=== PATIENT | female | born 1970 | race Caucasian/White ===

== ENCOUNTER → 2021-05-01 22:05 | Outpatient (CLI) | payer OTHER, SELFPAY ==
[2021-05-01 22:11] LABS: Absolute Lymphocyte Count 2.61 X10^3/uL (0.83-4.51); Absolute Neutrophil Count 4.5 X10^3/uL (2.0-7.7); Basophil# 0.04 X10^3/uL; Basophil% 0.5 % (0-1); Eosinophil# 0.12 X10^3/uL; Eosinophils% 1.5 % (0-5); Hematocrit 41.5 % (37-47); Hemoglobin 14.6 g/dL (12.0-15.0); Lymphocyte # 2.61 X10^3/ul (0.83-4.51); Lymphocyte % 32.2 % (19-41); Mean Corp Hgb Conc 35.2 g/dL (32-36); Mean Corpuscular Hgb 31.9 pg (27.0-32.0); Mean Corpuscular Volume 90.6 fL (81-99); Mean Platelet Vol. 9.8 fl (6.2-12.0); Monocyte# 0.82 X10^3/uL; Monocyte% 10.1 % (0-10); NRBC Flagged by Analyzer 0 % (0-5); Neutrophil # 4.46 X10^3/uL (2.7-7.7); Neutrophil % 55.1 % (47-70); Platelet Count 265 K/mm3 (150-450); RBC Distribution Width CV 12.9 % (11.6-14.6); RBC Distribution Width SD 42.6 fl (35.1-43.9); Red Blood Count 4.58 M/mm3 (4.2-5.4); White Blood Count 8.1 K/mm3 (4.4-11.0)
[2021-05-01 22:24] LABS: ALB/GLOB Ratio 1.2 RATIO (0.9-2.4); AST(SGOT) 31 U/L (15-37); Alanine Aminotransfer ALT/SGPT 49 U/L (13-56); Albumin, Serum 4.1 g/dL (3.2-5.0); Alkaline Phosphatase 82 U/L (45-117); Anion Gap 7 (5-15); BUN 15 mg/dL (7-18); BUN/Creat Ratio 20.4 RATIO (10-20); Chloride 108 mmol/L (98-107); Cholesterol 214 mg/dL (200); Creatinine, Serum 0.74 mg/dL (0.55-1.02); EST Glomerular Filtration Rate 88 mL/min (>60); Est Glom Filt Rate - Afr Amer 106 mL/min (>60); Globulin 3.5 g/dL (2.2-4.2); Glucose 89 mg/dL (74-106); High Density Lipoprotein 53 mg/dL; Potassium 3.6 mmol/L (3.5-5.1); Protein, Total 7.6 g/dL (6.4-8.2); Sodium Level 139 mmol/L (136-145); Triglycerides 160 mg/dL; Very Low Density Lipoprotein 32 mg/dL (5-40)
== END ==
PROVIDERS: Visit Provider Nurse Practitioner
DX: Z00.00 Encounter for general adult medical examination without abnormal findings (principal)
CPT/HCPCS: 80053; 80061; 85025

== ENCOUNTER → 2022-04-23 | Outpatient (CLI) | payer OTHER, SELFPAY ==
[2022-04-23 22:34] LABS: Absolute Lymphocyte Count 4.16 X10^3/uL (0.83-4.51); Absolute Neutrophil Count 5.5 X10^3/uL (2.0-7.7); Basophil# 0.04 X10^3/uL; Basophil% 0.4 % (0-1); Eosinophil# 0.29 X10^3/uL; Eosinophils% 2.7 % (0-5); Hematocrit 39.7 % (37-47); Hemoglobin 13.8 g/dL (12.0-15.0); Lymphocyte # 4.16 X10^3/ul (0.83-4.51); Lymphocyte % 39.1 % (19-41); Mean Corp Hgb Conc 34.8 g/dL (32-36); Mean Corpuscular Hgb 31.7 pg (27.0-32.0); Mean Corpuscular Volume 91.3 fL (81-99); Mean Platelet Vol. 9.5 fl (6.2-12.0); Monocyte# 0.61 X10^3/uL; Monocyte% 5.7 % (0-10); NRBC Flagged by Analyzer 0 % (0-5); Neutrophil % 51.6 % (47-70); Platelet Count 287 K/mm3 (150-450); RBC Distribution Width SD 43.7 fl (35.1-43.9); Red Blood Count 4.35 M/mm3 (4.2-5.4); White Blood Count 10.7 K/mm3 (4.4-11.0)
[2022-04-23 22:55] LABS: ALB/GLOB Ratio 1.2 RATIO (0.9-2.4); AST(SGOT) 21 U/L (15-37); Alanine Aminotransfer ALT/SGPT 35 U/L (13-56); Albumin, Serum 4.1 g/dL (3.2-5.0); Alkaline Phosphatase 70 U/L (45-117); Anion Gap 8 (5-15); BUN 16 mg/dL (7-18); BUN/Creat Ratio 21.3 RATIO (10-20); Calcium,Total 9.1 mg/dL (8.5-10.1); Chloride 108 mmol/L (98-107); Cholesterol 231 mg/dL (200); Creatinine, Serum 0.75 mg/dL (0.55-1.02); EST Glomerular Filtration Rate 86 mL/min (>60); Est Glom Filt Rate - Afr Amer 103 mL/min (>60); Globulin 3.4 g/dL (2.2-4.2); Glucose 87 mg/dL (74-106); High Density Lipoprotein 43 mg/dL; Potassium 3.6 mmol/L (3.5-5.1); Protein, Total 7.5 g/dL (6.4-8.2); Sodium Level 140 mmol/L (136-145); Triglycerides 208 mg/dL; Very Low Density Lipoprotein 42 mg/dL (5-40)
== END | disposition home or self-care (01) ==
PROVIDERS: Visit Provider Nurse Practitioner
DX: Z00.00 Encounter for general adult medical examination without abnormal findings (principal)
CPT/HCPCS: 80053; 80061; 85025

== ENCOUNTER → 2023-05-05 | Outpatient (CLI) | payer OTHER, SELFPAY ==
[2023-05-05 21:17] LABS: Absolute Lymphocyte Count 3.56 X10^3/uL (0.83-4.51); Basophil# 0.08 X10^3/uL; Basophil% 0.8 % (0-1); Eosinophil# 0.32 X10^3/uL; Eosinophils% 3.3 % (0-5); Hematocrit 42.6 % (37-47); Hemoglobin 14.1 g/dL (12.0-15.0); Lymphocyte # 3.56 X10^3/ul (0.83-4.51); Lymphocyte % 36.3 % (19-41); Mean Corp Hgb Conc 33.1 g/dL (32-36); Mean Corpuscular Hgb 30.8 pg (27.0-32.0); Mean Platelet Vol. 9.3 fl (6.2-12.0); Monocyte# 0.76 X10^3/uL; Monocyte% 7.8 % (0-10); NRBC Flagged by Analyzer 0 % (0-5); Neutrophil # 5.02 X10^3/uL (2.7-7.7); Neutrophil % 51.2 % (47-70); Platelet Count 326 K/mm3 (150-450); RBC Distribution Width CV 13.2 % (11.6-14.6); RBC Distribution Width SD 44.6 fl (35.1-43.9); Red Blood Count 4.58 M/mm3 (4.2-5.4); White Blood Count 9.8 K/mm3 (4.4-11.0)
[2023-05-05 21:39] LABS: ALB/GLOB Ratio 1.2 RATIO (0.9-2.4); AST(SGOT) 21 U/L (15-37); Alanine Aminotransfer ALT/SGPT 40 U/L (13-56); Albumin, Serum 4.2 g/dL (3.2-5.0); Alkaline Phosphatase 105 U/L (45-117); Anion Gap 5 (5-15); BUN 15 mg/dL (7-18); BUN/Creat Ratio 18.6 RATIO (10-20); Calcium,Total 9.3 mg/dL (8.5-10.1); Chloride 107 mmol/L (98-107); Cholesterol 253 mg/dL (200); Creatinine, Serum 0.81 mg/dL (0.55-1.02); EST Glomerular Filtration Rate 79 mL/min (>60); Est Glom Filt Rate - Afr Amer 95 mL/min (>60); Globulin 3.6 g/dL (2.2-4.2); Glucose 94 mg/dL (74-106); High Density Lipoprotein 41 mg/dL; Potassium 4.1 mmol/L (3.5-5.1); Protein, Total 7.8 g/dL (6.4-8.2); Sodium Level 140 mmol/L (136-145); Triglycerides 221 mg/dL; Very Low Density Lipoprotein 44 mg/dL (5-40)
== END | disposition home or self-care (01) ==
PROVIDERS: Referring Provider Nurse Practitioner; Visit Provider Nurse Practitioner
DX: Z00.00 Encounter for general adult medical examination without abnormal findings (principal)
CPT/HCPCS: 80053; 80061; 85025

== ENCOUNTER → 2024-04-05 | Outpatient (CLI) | payer OTHER, SELFPAY ==
[2024-04-05 22:59] LABS: Absolute Lymphocyte Count 3.57 X10^3/uL (0.83-4.51); Absolute Neutrophil Count 7.3 X10^3/uL (2.0-7.7); Basophil# 0.05 X10^3/uL; Basophil% 0.4 % (0-1); Eosinophil# 0.09 X10^3/uL; Eosinophils% 0.8 % (0-5); Hematocrit 40.4 % (37-47); Hemoglobin 13.7 g/dL (12.0-15.0); Lymphocyte # 3.57 X10^3/ul (0.83-4.51); Lymphocyte % 31.5 % (19-41); Mean Corp Hgb Conc 33.9 g/dL (32-36); Mean Corpuscular Hgb 34.2 pg (27.0-32.0); Mean Corpuscular Volume 100.7 fL (81-99); Mean Platelet Vol. 9.2 fl (6.2-12.0); Monocyte% 2.6 % (0-10); NRBC Flagged by Analyzer 0 % (0-5); Neutrophil # 7.31 X10^3/uL (2.7-7.7); Neutrophil % 64.4 % (47-70); POSITIVE MORPHOLOGY YES; Platelet Count 361 K/mm3 (150-450); RBC Distribution Width CV 15.5 % (11.6-14.6); RBC Distribution Width SD 57.6 fl (35.1-43.9); Red Blood Count 4.01 M/mm3 (4.2-5.4); White Blood Count 11.4 K/mm3 (4.4-11.0)
[2024-04-05 23:21] LABS: Differential Indicated SCAN CRITERIA MET
[2024-04-05 23:22] LABS: ALB/GLOB Ratio 0.9 RATIO (0.9-2.4); AST(SGOT) 57 U/L (15-37); Alanine Aminotransfer ALT/SGPT 62 U/L (13-56); Albumin, Serum 3.7 g/dL (3.2-5.0); Alkaline Phosphatase 128 U/L (45-117); Anion Gap 6 (5-15); BUN 15 mg/dL (7-18); BUN/Creat Ratio 15.9 RATIO (10-20); Calcium,Total 9.9 mg/dL (8.5-10.1); Chloride 103 mmol/L (98-107); Cholesterol 166 mg/dL (200); Creatinine, Serum 0.94 mg/dL (0.55-1.02); EST Glomerular Filtration Rate 65 mL/min (>60); Est Glom Filt Rate - Afr Amer 79 mL/min (>60); Globulin 3.9 g/dL (2.2-4.2); Glucose 82 mg/dL (74-106); High Density Lipoprotein 46 mg/dL; Potassium 3.8 mmol/L (3.5-5.1); Protein, Total 7.6 g/dL (6.4-8.2); Sodium Level 138 mmol/L (136-145); Triglycerides 225 mg/dL; Very Low Density Lipoprotein 45 mg/dL (5-40)
[2024-04-06 04:24] LABS: Atypical Lymphocyte 1+ %
== END | disposition home or self-care (01) ==
PROVIDERS: Referring Provider Nurse Practitioner; Visit Provider Nurse Practitioner
DX: Z00.00 Encounter for general adult medical examination without abnormal findings (principal)
CPT/HCPCS: 80053; 80061; 85025

== ENCOUNTER → 2025-04-19 | Outpatient (CLI) | payer OTHER, SELFPAY ==
[2025-04-19 22:16] LABS: Hematocrit 40.1 % (37-47); Hemoglobin 13.8 g/dL (12.0-15.0); Immature Granulocytes Count 0.030 X10^3/uL (0.0-0.0); Mean Corp Hgb Conc 34.4 g/dL (32-36); Mean Corpuscular Volume 96.6 fL (81-99); Mean Platelet Vol. 9.2 fl (6.2-12.0); NRBC Flagged by Analyzer 0 % (0-5); Platelet Count 279 K/mm3 (150-450); RBC Distribution Width CV 12.6 % (11.6-14.6); RBC Distribution Width SD 45.1 fl (35.1-43.9); Red Blood Count 4.15 M/mm3 (4.2-5.4); White Blood Count 8.0 K/mm3 (4.4-11.0)
[2025-04-19 22:38] LABS: AST(SGOT) 27 U/L (<=31); Alanine Aminotransfer ALT/SGPT 26 U/L (<=34); Albumin, Serum 4.4 g/dL (3.5-5.0); Alkaline Phosphatase 103 U/L (35-104); Anion Gap 11 (5-15); BUN 16 mg/dL (4-19); BUN/Creat Ratio 17.1 RATIO (10-20); Calcium,Total 9.6 mg/dL (7.6-11.0); Carbon Dioxide 24.7 mmol/L (21.0-32.0); Chloride 105 mmol/L (98-108); Cholesterol 146 mg/dL (<=200); Globulin 2.6 g/dL (2.2-4.2); Glucose 87 mg/dL (70-99); Low Density Lipoprotein Calc. 64 mg/dL; Potassium 4.2 mmol/L (3.3-5.1); Triglycerides 115 mg/dL; Very Low Density Lipoprotein 23 mg/dL (5-40); cholesterol:hdl ratio screen 2.48
--- OUTSIDE RECORDS SUMMARY | 2025-04-19 22:44 | XMS RPT_ITS | CCD ---
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 Name Role Phone Yaron HOME CARE CHAPLAIN.Martine LYNCH Primary Care Provide r KRISTY BATEMAN Attending Unavailabl e VANE MARRUFOA Allyson Primary Care Unavailable REID REDDING Attending Unavailable REID REDDING Admitting Unavailable YARON MARTINE L Primary Care Unavailable KRISTY BATEMAN Referring Unavailmargie Hackett MD, Sina Gil Unavailable Jessie Scott RN Unavailable Deidre YEUNG, Joleen Unavailable Teresa ZUNIGA, Marta Unavailable Unavailable Shanique Velazquez Unavailable Yaron HOME CARE CHAPLAIN.Vane LYNCHa L Primary Care Provide r Kelli ZUNIGA, Anjelica Unavailable Unavailable Jessie Scott RN Unavailable Yaron SENIOR OFFICER, Martine Attending Unavailable Yaron SENIOR OFFICER, Martine Referring Unavailable Care Physician, No Primary Primary Care Unava ilable Yaron SENIOR OFFICER, Martine Referring Unavailable Care Physician, No Primary Primary Care Unava ilable Yaron SENIOR OFFICER, Martine Attending Unavailable MARK MCDONNELL Attending Unavailabl e MARRUFO, MARTINE L Primary Care Unavailable MARRUFO, MARTINE L Primary Care Unavailable MARK MCDONNELL Attending Unavailabl e MARRUFO, MARTINE L Primary Care Unavailable MARK MCDONNELL Attending Unavailabl e PROVIDER, UNKNOWN Referring Unavailable MARRUFO, MARTINE L Primary Care Unavailable PROVIDER, UNKNOWN Referring Unavailable MARRUFO, MARTINE L Primary Care Unavailable PROVIDER, UNKNOWN Referring Unavailable MARRUFO, MARTINE L Primary Care Unavailable PROVIDER, UNKNOWN Referring Unavailable MARRUFO, MARTINE L Primary Care Unavailable PROVIDER, UNKNOWN Referring Unavailable MARRUFO, MARTINE L Primary Care Unavailable PROVIDER, UNKNOWN Referring Unavailable MARRUFO, MARTINE L Primary Care Unavailable PROVIDER, UNKNOWN Referring Unavailable MARRUFO, MARTINE L Primary Care Unavailable PROVIDER, UNKNOWN Referring Unavailable MARRUFO, MARTINE L Primary Care Unavailable PROVIDER, UNKNOWN Referring Unavailable MARRUFO, MARTINE L Primary Care Unavailable PROVIDER, UNKNOWN Referring Unavailable MARRUFO, MARTINE L Primary Care Unavailable PROVIDER, UNKNOWN Referring Unavailable MARRUFO, MARTINE L Primary Care Unavailable TRI DICKERSON Attending Unavailable MARRUFO, MARTINE L Primary Care Unavailable JIANG, KHALED Referring Unavailable MARRUFO, MARTINE L Primary Care Unavailable JIANG, KHALED Referring Unavailable MARRUFO, MARTINE L Primary Care Unavailable MARRUFO, MARTINE L Primary Care Unavailable JIANG, KHALED Referring Unavailable MARIELA RIEVRA Referring Unavailable MARRUFO, MARTINE L Primary Care Unavailable MARIELA RIVERA Attending Unavailable MARRUFO, MARTINE L Primary Care Unavailable JIANG, KHALED Referring Unavailable MARIELA RIVERA Referring Unavailable MARIELA RIVERA Attending Unavailable MARRUFO, MARTINE L Primary Care Unavailable MARRUFO, MARTINE L Primary Care Unavailable JIANG, KHALED Attending Unavailable MARRUFO, MARTINE L Primary Care Unavailable JIANG, KHALED Referring Unavailable MARRUFO, MARTINE L Primary Care Unavailable JIANG, KHALED Attending Unavailable JIANG, KHALED Referring Unavailable MARRUFO, MARTINE L Primary Care Unavailable JIANG, KHALED Referring Unavailable MARRUFO, MARTINE L Primary Care Unavailable JIANG, KHALED Referring Unavailable MARRUFO, MARTINE L Primary Care Unavailable JIANG, KHALED Referring Unavailable MARIELA RIVERA Attending Unavailable MARIELA RIVERA Referring Unavailable MARRUFO, MARTINE L Primary Care Unavailable LOVE JUAREZ Attending Unavailable MARRUFO, MARTINE L Primary Care Unavailable MARRUFO, MARTINE L Primary Care Unavailable JIANG, KHALED Referring Unavailable MARRUFO, MARTINE L Primary Care Unavailable TRI DICKERSON Attending Unavailable MARRUFO, MARTINE L Primary Care Unavailable JIANG, KHALED Referring Unavailable MARRUFO, MARTINE L Primary Care Unavailable JIANG, KHALED Referring Unavailable MARRUFO, MARTINE L Primary Care Unavailable JIANG, KHALED Referring Unavailable MARRUFO, MARTINE L Primary Care Unavailable JIANG, KHALED Attending Unavailable JIANG, KHALED Referring Unavailable LOVE JUAREZ Attending Unavailable MARRUFO, MARTINE L Primary Care Unavailable MARRUFO, MARTINE L Primary Care Unavailable JIANG, KHALED Referring Unavailable MAYITO DICKERSONNDRIA Attending Unavailable MARRUFO, MARTINE L Primary Care Unavailable JIANG, KHALED Referring Unavailable MARRUFO, MARTINE L Primary Care Unavailable TUAN, TRI Attending Unavailable MARRUFO, MARTINE L Primary Care Unavailable MARRUFO, MARTINE L Primary Care Unavailable JIANG, KHALED Referring Unavailable MARIELA RIVERA Attending Unavailable MARIELA RIVERA Referring Unavailable MARRUFO, MARTINE L Primary Care Unavailable MARRUFO, MARTINE L Primary Care Unavailable JIANG, KHALED Referring Unavailable TUAN, TRI Attending Unavailable MARRUFO, MARTINE L Primary Care Unavailable JIANG, KHALED Referring Unavailable MARRUFO, MARTINE L Primary Care Unavailable JIANG, KHALED Referring Unavailable MARRUFO, MARTINE L Primary Care Unavailable JIANG, KHALED Referring Unavailable JIANG, KHALED Attending Unavailable MARRUFO, MARTINE L Primary Care Unavailable JIANG, KHALED Referring Unavailable MARRUFO, MARTINE L Primary Care Unavailable JIANG, KHALED Attending Unavailable MARRUFO, MARTINE L Primary Care Unavailable JIANG, KHALED Referring Unavailable MARRUFO, MARTINE L Primary Care Unavailable JIANG, KHALED Referring Unavailable MARRUFO, MARTINE L Primary Care Unavailable JIANG, KHALED Attending Unavailable JIANG, KHALED Referring Unavailable MARRUFO, MARTINE L Primary Care Unavailable JIANG, KHALED Referring Unavailable MARRUFO, MARTINE L Primary Care Unavailable JIANG, KHALED Referring Unavailable MARRUFO, MARTINE L Primary Care Unavailable JIANG, KHALED Referring Unavailable TUAN, TRI Attending Unavailable MARRUFO, MARTINE L Primary Care Unavailable JIANG, KHALED Referring Unavailable MARRUFO, MARTINE L Primary Care Unavailable JIANG, KHALED Referring Unavailable MARRUFO, MARTINE L Primary Care Unavailable JIANG, KHALED Referring Unavailable MARRUFO, MARTINE L Primary Care Unavailable JIANG, KHALED Attending Unavailable JIANG, KHALED Referring Unavailable Allergies Allergy Classification Reported Allergen(s) Allergy Type Date of Onset Reaction(s) Facility egg extract (1 source) egg extract Drug Allergy 3 [facility] Latex (1 source) Latex Substance Allergy 3 [facility] Penicillins (antibiotic) (1 source) Penicillins Drug Allergy 5 [facility] (16 sources) Penicillins; Translations: [PENICILLINS] Allergy to substance 5 [facility] (20 sources) Penicillins Propensity to adverse reactions to drug 5 Unknown, [facility] (20 sources) egg extract; Translations: [EGG] Drug Allergy 3 [facility] (20 sources) Latex; Translations: [LATEX] Drug Allergy 3 [facility] (1 source) Penicillins Drug allergy (disorder) 3 [facility] (17 sources) Penicillins Drug Allergy 5 [facility] Medications Current Medications Medication Drug Class(es) Dates Sig (Normalized) Sig (Original) acetaminophen 325 mg oral tablet (20 sources) Start: 07-23-2023 take 2 tablets enteral route every four hours as needed acetaminophen (TYLENOL) 325 mg tablet 2 tablets by ORAL/FEEDING TUBE route every 4 hours as needed for pain. 07/23/2023 Active Comment on above: 2 tablets by ORAL/FE EDING TUBE route every 4 hours as needed for pain. acetaminophen 325 mg / HYDROcodone bitartrate 5 mg oral tablet (20 sources) Opioid Agonist Start: 01-06-2024 End: 01-09-2024 take 1 tablet by mouth every eight hours as needed for pain HYDROcodone-acetami nophen (NORCO) 5-325 mg per tablet Indications: Malignant neoplasm of upper-outer quadrant of right breast in female, estrogen receptor positive (HCC) Take 1 tablet by mouth every 8 hours as needed for pain for up to 3 days. 5 tablet 0 01/06/2024 01/09/2024 Active Start: 01-02-2015 take 1 tablet by lul th every six hours as needed HYDROcodone-acetaminophen (NORCO) 5-325 mg per tablet Take 1 tablet by mouth every 6 hours as needed. 12 tablet 0 01/18/2016 Active Comment on above: Take 1 tablet by lul th every 6 hours as needed. [id number] 200 actuat albuterol 0.09 mg/actuat metered dose inhaler (20 sources) beta2-Adrenergic Agonist Start: 12-24-2024 take 2 puff(s) by inhalation every six hours as needed for wheezing albuterol HFA (PROVENTIL HFA, VENTOLIN HFA) 90 mcg/actuation inhaler Inhale 2 puffs as instructed every 6 hours as needed for wheezing/shortness of breath. 8.5 g 1 12/24/2024 11:32 AM EDT 12/24/2024 Active Start: 10-18-2024 take 1 puff(s) by in halation every six hours as needed for wheezing albuterol sulfate 90 mcg/actuation breath activated powder inhaler Inhale 1 Puff as instructed every 6 hours as needed for wheezing/shortness of breath. 1 Each 2 10/18/2024 Active atorvastatin 40 mg oral tablet (20 sources) HMG-CoA Reductase Inhibitor Start: 05-08-2023 take 40 mg by mouth once daily Atorvastatin Active 40 MG PO DAILY May 08, 2023 12:00am Comment on above: Take 40 mg by mouth once daily. 12 hr buPROPion hydrochloride 150 mg extended release oral tablet (20 sources) Aminoketone Start: 12-06-2024 End: 03-09-2025 take 1 tablet by mouth twice daily buPROPion SR (WELLBUTRIN SR) 150 mg 12 hr tablet Take 1 tablet by mouth two times a day. 60 tablet 2 03/09/2025 Active Start: 02-20-2024 End: 12-04-2024 take 1 tablet by mouth twice daily buPROPion SR (WELLBUTRIN SR) 150 mg 12 hr tablet Take 1 tablet by mouth two times a day. 60 tablet 2 09/15/2024 12/04/2024 Discontinued clarithromycin 500 mg oral tablet (1 source) Macrolide Antimicrobial Start: 05-05-2023 take 500 mg by mouth twice daily Clarithromycin Active 500 MG PO TWICE A DAY May 05, 2023 12:00am doxycycline hyclate 100 mg oral capsule (3 sources) Tetracycline-class Drug Start: 05-14-2024 End: 05-21-2024 take 1 capsule by mouth twice daily doxycycline hyclate (VIBRAMYCIN) 100 mg capsule Take 1 capsule (100 mg) by mouth two times a day for 7 days. 14 capsule 05/14/2024 05/21/2024 Active DULoxetine 60 mg delayed release oral capsule (20 sources) Serotonin and Norepinephrine Reuptake Inhibitor Start: 06-19-2022 End: 05-05-2023 take 60 mg by mouth once daily Duloxetine Active 60 MG PO DAILY May 05, 2023 4:42pm Start: 04-23-2022 End: 06-19-2022 take 30 mg by mouth once daily Duloxetine Discontinued 30 MG PO daily April 23, 2022 12:00am June 19, 2022 4:15pm Comment on above: Take 60 mg by mouth once daily. famotidine 20 mg oral tablet (20 sources) Histamine-2 Receptor Antagonist Start: 07-29-2023 End: 03-09-2024 take 1 tablet by mouth twice daily famotidine (PEPCID) 20 mg tablet Take 1 tablet by mouth two times a day. 40 tablet 03/10/2024 Active Comment on above: Take 1 tablet by lul th two times a day. folic acid 1 mg oral tablet (20 sources) Start: 09-15-2023 End: 11-01-2024 take 1 tablet by mouth once daily folic acid 1 mg tablet Indications: Neoplasm of lung Take 1 tablet by mouth once daily. 30 tablet 5 11/01/2024 Active Start: 08-04-2023 take 1 tablet by lul th once daily folic acid 1 mg tablet Indications: Neoplasm of lung Take 1 tablet by mouth once daily. 30 tablet 5 08/04/2023 Active Comment on above: Take 1 tablet by lul th once daily. furosemide 20 mg oral tablet (20 sources) Loop Diuretic Start: End: take 1 tablet by mouth once daily furosemide (LASIX) 20 mg tablet Take 1 tablet by mouth once daily. 30 tablet 1 11/01/2024 Active ibuprofen 200 mg oral tablet (20 sources) Nonsteroidal Anti-inflammatory Drug take 1 tablet by mouth every six hours as needed ibuprofen (MOTRIN) 200 mg tablet Take 200 mg by mouth every 6 hours as needed for pain. Active iv contrast (will be provided with radiology test) (14 sources) Start: End: inject 1 dose intravenously once iv contrast (will be provided with radiology test) MRI Brain Inject, intravenously, once for 1 dose.No IV access, insert saline lock prior to beginning of sedation, infusion, injection of imaging exam.Discontinue saline lock post exam. If Pt. has a central line or IVAD, may access for administration according to line specific nursing protocol.Once exam is complete flush line and de-access according to line specific nursing protocol in the MR contrast administration guidelines link 1 each 02/03/2025 02/04/2025 Active Start: 10-28-2024 End: 10-29-2024 inject 1 dose intravenously once iv contrast (will be provided with radiology test) MRI Brain Inject, intravenously, once for 1 dose.No IV access, insert saline lock prior to beginning of sedation, infusion, injection of imaging exam.Discontinue saline lock post exam. If Pt. has a central line or IVAD, may access for administration according to line specific nursing protocol.Once exam is complete flush line and de-access according to line specific nursing protocol in the MR contrast administration guidelines link 1 Each 10/28/2024 10/29/2024 Active Start: 07-29-2024 End: 07-30-2024 inject 1 dose intravenously once iv contrast (will be provided with radiology test) MRI Brain Inject, intravenously, once for 1 dose.No IV access, insert saline lock prior to beginning of sedation, infusion, injection of imaging exam.Discontinue saline lock post exam. If Pt. has a central line or IVAD, may access for administration according to line specific nursing protocol.Once exam is complete flush line and de-access according to line specific nursing protocol in the MR contrast administration guidelines link 1 Each 07/29/2024 07/30/2024 Active Start: 04-22-2024 End: 04-23-2024 inject 1 dose intravenously once iv contrast (will be provided with radiology test) MRI Brain Inject, intravenously, once for 1 dose.No IV access, insert saline lock prior to beginning of sedation, infusion, injection of imaging exam.Discontinue saline lock post exam. If Pt. has a central line or IVAD, may access for administration according to line specific nursing protocol.Once exam is complete flush line and de-access according to line specific nursing protocol in the MR contrast administration guidelines link 1 Each 04/22/2024 04/23/2024 Active Start: 01-08-2024 End: 01-09-2024 inject 1 dose intravenously once iv contrast (will be provided with radiology test) MRI Brain Inject, intravenously, once for 1 dose.No IV access, insert saline lock prior to beginning of sedation, infusion, injection of imaging exam.Discontinue saline lock post exam. If Pt. has a central line or IVAD, may access for administration according to line specific nursing protocol.Once exam is complete flush line and de-access according to line specific nursing protocol in the MR contrast administration guidelines link 1 Each 0 01/08/2024 01/09/2024 Active Start: 10-15-2023 End: 10-16-2023 iv contrast (will be provide d with radiology test) CT Chest W -Inject, intravenously, once for 1 dose.No IV access, insert saline lock prior to the beginning of sedation, infusion, injection of imaging exam. Discontinue saline lock post exam. If Pt. has a central line or IVAD, may access for administration according to line specific nursing protocol. Once exam is complete flush line and de-access according to line specific nursing protocol in the CT contrast administration guidelines link. 1 Each 0 10/15/2023 10/16/2023 Active Start: 09-26-2023 End: 09-27-2023 inject 1 dose intravenously once iv contrast (will be provided with radiology test) MRI Brain Inject, intravenously, once for 1 dose.No IV access, insert saline lock prior to beginning of sedation, infusion, injection of imaging exam.Discontinue saline lock post exam. If Pt. has a central line or IVAD, may access for administration according to line specific nursing protocol.Once exam is complete flush line and de-access according to line specific nursing protocol in the MR contrast administration guidelines link 1 Each 0 09/26/2023 09/27/2023 Active Comment on above: MRI Brain Inject, in travenously, once for 1 dose.No IV access, insert saline lock prior to beginning of sedation, infusion, injection of imaging exam.Discontinue saline lock post exam. If Pt. has a central line or IVAD, may access for administration according to line specific nursing protocol.Once exam is complete flush line and de-access according to line specific nursing protocol in the MR contrast administration guidelines link CT Chest W -Inject, intravenously, once for 1 dose.No IV access, insert saline lock prior to the beginning of sedation, infusion, injection of imaging exam. Discontinue saline lock post exam. If Pt. has a central line or IVAD, may access for administration according to line specific nursing protocol. Once exam is complete flush line and de-access according to line specific nursing protocol in the CT contrast administration guidelines link. lacosamide 150 mg oral tablet (20 sources) Anti-epileptic Agent Start: End: take 1 tablet by mouth twice daily lacosamide (VIMPAT) 150 mg tab Indications: Focal epilepsy (HCC) Take 1 tablet by mouth two times a day for 180 days. 180 tablet 1 11/24/2024 05/23/2025 Active Start: 12-05-2023 End: 03-05-2024 take 1 tablet by mouth twice daily, then take 1.5 tablets by mouth twice daily lacosamide (VIMPAT) 100 mg tab Indications: Focal epilepsy (HCC) Take 1 tablet by mouth two times a day for 7 days, THEN 1.5 tablets two times a day for 21 days. 80 tablet 12/05/2023 03/05/2024 Discontinued (Other) Comment on above: Take 1 tablet by lul th two times a day for 7 days, THEN 1.5 tablets two times a day for 21 days. Take 1 tablet by lul th two times a day for 180 days. Do not start before January 02, 2024. levETIRAcetam 750 mg oral tablet (20 sources) Start: End: take 2 tablets by mouth twice daily levETIRAcetam (KEPPRA) 750 mg tablet Indications: Focal epilepsy (HCC) 2 tablets by ORAL/FEEDING TUBE route two times a day. 360 tablet 1 09/03/2023 03/01/2024 Active Comment on above: 2 tablets by ORAL/FE EDING TUBE route two times a day. levoFLOXacin 500 mg oral tablet (2 sources) Quinolone Antimicrobial Start: End: take 1 tablet by mouth once daily levoFLOXacin (LEVAQUIN) 500 mg tablet Take 1 tablet by mouth once daily for 7 days. 7 tablet 0 02/09/2024 02/16/2024 Active lidocaine 0.04 mg/mg medicated patch (20 sources) Antiarrhythmic, Amide Local Anesthetic Start: End: apply 1 dose transdermal route once daily lidocaine (SALONPAS) 4 % patch Apply 1 Patch as directed once daily. 10 Patch 10/18/2024 Active Start: 12-29-2023 End: 12-29-2023 SUBCUTANEOUS, X (OR/PROCEDUR E) PRN, Starting on Fri12/29/23 at 0941, Until Fri12/29/23 at 0941, Intraprocedure loperamide hydrochloride 2 mg oral capsule (20 sources) Opioid Agonist Start: 09-17-2023 take 1 capsule by mouth every six hours as needed loperamide (IMODIUM A-D) 2 mg cap(s) Take 1 capsule by mouth four times a day as needed. 30 capsule 09/17/2023 Active Comment on above: Take 1 capsule by mo uth four times a day as needed. methocarbamol 500 mg oral tablet (7 sources) Muscle Relaxant Start: 02-04-2025 take 1 tablet by mouth every eight hours as needed methocarbamol (ROBAXIN) 500 mg tablet Take 1 tablet by mouth three times a day as needed (Muscular pain and spasm). 15 tablet 02/04/2025 Active OLANZapine 5 mg oral tablet (20 sources) Atypical Antipsychotic Start: 12-08-2023 End: 09-21-2024 take 1 tablet by mouth once daily at bedtime OLANZapine (ZYPREXA) 5 mg tablet Indications: Neoplasm of lung TAKE 1 TABLET BY MOUTH ONCE DAILY AT BEDTIME. start on the day OF chemotherapy and TAKE for 5 (FIVE) nights 30 tablet 1 09/21/2024 Active Start: 09-15-2023 End: 12-05-2023 take 1 tablet by mouth once daily at bedtime OLANZapine (ZYPREXA) 5 mg tablet Indications: Neoplasm of lung Take 1 tablet by mouth daily at bedtime. Start on the day of chemotherapy and take for 5 night. 30 tablet 1 11/28/2023 Active Start: 08-04-2023 take 1 tablet by lul th once daily at bedtime OLANZapine (ZYPREXA) 5 mg tablet Indications: Neoplasm of lung Take 1 tablet by mouth daily at bedtime. Start on the day of chemotherapy and take for 5 night. 30 tablet 1 08/04/2023 Active Comment on above: Take 1 tablet by lul th daily at bedtime. Start on the day of chemotherapy and take for 5 night. oxyCODONE hydrochloride 5 mg oral tablet (2 sources) Opioid Agonist Start: 02-05-20 End: 02-10-20 take 1 tablet by mouth every eight hours as needed for pain oxyCODONE IR (ROXICODONE) 5 mg immediate release tablet Indications: Adenocarcinoma of lung, stage 4, unspecified laterality (HCC) , Rib pain on left side Take 1 tablet by mouth every 8 hours as needed for pain for up to 5 days. 15 tablet 02/04/2025 02/09/2025 Active pantoprazole 40 mg delayed release oral tablet (20 sources) Proton Pump Inhibitor Start: 08-13-20 End: 08-13-20 take 1 tablet by mouth once daily in the morning pantoprazole DR (PROTONIX) 40 mg tablet Take 1 tablet by mouth daily at 6 am. 30 tablet 08/13/2023 Active Start: 07-24-2023 End: 08-10-2023 take 1 tablet by mouth once daily in the morning pantoprazole DR (PROTONIX) 40 mg tablet Take 1 tablet by mouth daily at 6 am. 30 tablet 0 07/24/2023 08/10/2023 Discontinued Comment on above: Take 1 tablet by lul daily at 6 am. prochlorperazine 10 mg oral tablet (20 sources) Phenothiazine Start: 025 take 1 tablet by mouth every four hours as needed prochlorperazine (COMPAZINE) 10 mg tablet Take 1 tablet by mouth every 4 hours as needed. 30 tablet 1 12/06/2024 Active Start: 09-17-2023 End: 12-04-2024 take 1 tablet by mouth every four hours as needed prochlorperazine (COMPAZINE) 10 mg tablet Take 1 tablet by mouth every 4 hours as needed. 30 tablet 1 05/03/2024 12/04/2024 Discontinued Comment on above: Take 1 tablet by lul th every 4 hours as needed. varenicline 1 mg oral tablet (20 sources) Partial Cholinergic Nicotinic Agonist Start: take 1 tablet by mouth twice daily at mealtime varenicline (CHANTIX) 1 mg tablet Take 1 tablet by mouth two times a day with meals. 60 tablet 1 02/20/2024 Active vitamin b6 100 mg oral tablet (20 sources) Start: End: 5 take 1 tablet by mouth once daily pyridoxine, vitamin B6, (VITAMIN B6) 100 mg tablet Indications: Focal epilepsy (HCC) Take 1 tablet by mouth once daily. 90 tablet 3 09/21/2024 Active Comment on above: Take 1 tablet by lul th once daily. Completed/Discontinued Medications Medication Drug Class(es) Dates Sig (Normalized) Sig (Original) cyclobenzaprine hydrochloride 10 mg oral tablet (13 sources) Muscle Relaxant Start: 01-18-2016 take 1 tablet by mouth every eight hours as needed cyclobenzaprine (FLEXERIL) 10 mg tablet Take 1 tablet by mouth every 8 hours as needed for Muscle Spasm (or pain). 14 tablet 0 01/18/2016 Active Comment on above: Take 1 tablet by lul th every 8 hours as needed for Muscle Spasm (or pain). dexamethasone 4 mg oral tablet (20 sources) Corticosteroid Start: 07-29-2023 dexAMETHasone (DECADRON) 4 mg tablet Start the day after your Gamma Knife procedure:Decadron (Dexamethasone), Take 4 mg (1 tablet) three times a day for 4 days, Then Take 4 mg (1 tablet) twice a day for 4 days then, Take 4 mg (1 tablet) once a day for 4 days then, Take 2 mg (1/2 tablet) once a day for 4 days then Take 2 mg (1/2 tablet) every OTHER day for 4 doses then, Stop the Decadron 28 tablet 0 07/29/2023 Active Start: 07-23-2023 dexAMETHasone (DECADRON) 4 mg tablet Take 4mg in the morning and 4mg in the afternoon until directed otherwise. Take Protonix daily while taking Decadron 20 tablet 0 07/23/2023 Active Comment on above: Take 4mg in the morn ing and 4mg in the afternoon until directed otherwise. Take Protonix daily while taking Decadron Start the day after your Gamma Knife procedure:Decadron (Dexamethasone), Take 4 mg (1 tablet) three times a day for 4 days, Then Take 4 mg (1 tablet) twice a day for 4 days then, Take 4 mg (1 tablet) once a day for 4 days then, Take 2 mg (1/2 tablet) once a day for 4 days then Take 2 mg (1/2 tablet) every OTHER day for 4 doses then, Stop the Decadron fluconazole 100 mg oral tablet (1 source) Azole Antifungal Start: 2 End: 3 take 100 mg by mouth once daily Fluconazole Discontinued 100 MG PO DAILY June 19, 2022 12:00am May 05, 2023 4:43pm midazolam 50 mg/ml nasal spray (20 sources) Benzodiazepine Start: 4 End: 4 midazolam (NAYZILAM) 5 mg/spray (0.1 mL) nasal spray Indications: Focal epilepsy (HCC) Use 1 Morrow in the nose as needed for seizures lasting longer than 5 minutes for up to 180 days. May repeat dose in alternate nostril after 10 minutes based on response and tolerability. 4 Each 09/03/2023 02/26/2024 Discontinued Comment on above: Use 1 Morrow in the n ose as needed for seizures lasting longer than 5 minutes for up to 180 days. May repeat dose in alternate nostril after 10 minutes based on response and tolerability. 2 ml ondansetron 2 mg/ml injection (20 sources) Serotonin-3 Receptor Antagonist Start: 5 End: 8 mg, INTRAVENOUS, ONCE, 1 dose, On Fri10/18/24 at 1430 Start: 09-27-2024 End: 09-27-2024 8 mg, INTRAVENOUS, ONCE, 1 d ose, On Fri09/27/24 at 1400 Start: 09-03-2024 End: 09-03-2024 8 mg, INTRAVENOUS, ONCE, 1 d ose, On Fri09/03/24 at 1430 Start: 07-19-2024 End: 07-19-2024 8 mg, INTRAVENOUS, ONCE, 1 d ose, On Fri07/19/24 at 0930 Start: 06-30-2024 End: 06-30-2024 8 mg, INTRAVENOUS, ONCE, 1 d ose, On Fri06/30/24 at 1600 Start: 06-07-2024 End: 06-07-2024 8 mg, INTRAVENOUS, ONCE, 1 d ose, On Fri06/07/24 at 1230 Start: 05-14-2024 End: 05-14-2024 8 mg, INTRAVENOUS, ONCE, 1 d ose, On Fri05/14/24 at 1430 Start: 04-23-2024 End: 04-23-2024 8 mg, INTRAVENOUS, ONCE, 1 d ose, On Fri04/23/24 at 1200 Start: 04-02-2024 End: 04-02-2024 ondansetron (PF) 8 mg inject ion (ZOFRAN) Start: 03-12-2024 End: 03-12-2024 ondansetron (PF) 8 mg inject ion (ZOFRAN) Start: 02-20-2024 End: 02-20-2024 ondansetron (PF) 8 mg inject ion (ZOFRAN) Start: 01-29-2024 End: 01-29-2024 ondansetron (PF) 8 mg inject ion (ZOFRAN) Start: 09-15-2023 End: 05-03-2024 take 1 tablet by mouth every eight hours as needed for nausea ondansetron (ZOFRAN) 8 mg tablet Indications: Neoplasm of lung Take 1 tablet by mouth every 8 hours as needed for nausea/vomiting. 30 tablet 3 05/03/2024 Active Start: 08-04-2023 take 1 tablet by lul th every eight hours as needed for nausea ondansetron (ZOFRAN) 8 mg tablet Indications: Neoplasm of lung Take 1 tablet by mouth every 8 hours as needed for nausea/vomiting. 30 tablet 3 08/04/2023 Active Comment on above: Take 1 tablet by lul th every 8 hours as needed for nausea/vomiting. PARoxetine hydrochloride 10 mg oral tablet (2 sources) Serotonin Reuptake Inhibitor Start: 05-01-20 End: 04-23-20 take 10 mg by mouth once daily Paroxetine Hcl Discontinued 10 MG PO DAILY May 01, 2021 12:00am April 23, 2022 4:35pm pembrolizumab 200 mg in NaCl 0.9% 66 mL (KEYTRUDA) (12 sources) Start: 10-18-19 End: 10-18-19 200 mg, INTRAVENOUS, Administer over 30 Minutes, ONCE, 1 dose, On Fri10/18/24 at 1430, Approx Total Volume: 66 mL Administer with 0.2 micron filter. Start: 09-27-2024 End: 09-27-2024 200 mg, INTRAVENOUS, Adminis ter over 30 Minutes, ONCE, 1 dose, On Fri09/27/24 at 1400, EXP: Administer with 0.2 micron filter. Start: 09-03-2024 End: 09-03-2024 200 mg, INTRAVENOUS, Adminis ter over 30 Minutes, ONCE, 1 dose, On Fri09/03/24 at 1430, EXP: Administer with 0.2 micron filter. Start: 07-19-2024 End: 07-19-2024 200 mg, INTRAVENOUS, Adminis ter over 30 Minutes, ONCE, 1 dose, On Fri07/19/24 at 0930, Approx Total Volume: 66 mL Administer with 0.2 micron filter. Start: 06-30-2024 End: 06-30-2024 200 mg, INTRAVENOUS, Adminis ter over 30 Minutes, ONCE, 1 dose, On Fri06/30/24 at 1600, Approx Total Volume: 66 mL Administer with 0.2 micron filter. Start: 06-07-2024 End: 06-07-2024 200 mg, INTRAVENOUS, Adminis ter over 30 Minutes, ONCE, 1 dose, On Fri06/07/24 at 1230, Approx Total Volume: 66 mL Administer with 0.2 micron filter. Start: 05-14-2024 End: 05-14-2024 200 mg, INTRAVENOUS, Adminis ter over 30 Minutes, ONCE, 1 dose, On Fri05/14/24 at 1430, EXP: Administer with 0.2 micron filter. Start: 04-23-2024 End: 04-23-2024 200 mg, INTRAVENOUS, Adminis ter over 30 Minutes, ONCE, 1 dose, On Fri04/23/24 at 1200, Approx Total Volume: 66 mL Administer with 0.2 micron filter. Start: 04-02-2024 End: 04-02-2024 pembrolizumab 200 mg in NaCl 0.9% 66 mL (KEYTRUDA) Start: 03-12-2024 End: 03-12-2024 pembrolizumab 200 mg in NaCl 0.9% 66 mL (KEYTRUDA) Start: 02-20-2024 End: 02-20-2024 pembrolizumab 200 mg in NaCl 0.9% 66 mL (KEYTRUDA) Start: 01-29-2024 End: 01-29-2024 pembrolizumab 200 mg in NaCl 0.9% 66 mL (KEYTRUDA) pembrolizumab 400 mg in NaCl 0.9% 74 mL (KEYTRUDA) (4 sources) Start: 03-16-2025 End: 03-16-2025 400 mg, INTRAVENOUS, Adminis ter over 30 Minutes, ONCE, 1 dose, On Fri03/16/25 at 1300, Administer with 0.2 micron filter. Start: 02-04-2025 End: 02-04-2025 400 mg, INTRAVENOUS, Adminis ter over 30 Minutes, ONCE, 1 dose, On Fri02/04/25 at 1600, Administer with 0.2 micron filter. Start: 12-24-2024 End: 12-24-2024 400 mg, INTRAVENOUS, Adminis ter over 30 Minutes, ONCE, 1 dose, On Fri12/24/24 at 1030, Administer with 0.2 micron filter. Start: 11-08-2024 End: 11-08-2024 400 mg, INTRAVENOUS, Adminis ter over 30 Minutes, ONCE, 1 dose, On Fri11/08/24 at 1230, Administer with 0.2 micron filter. PEMEtrexed disodium 752 mg in NaCl 0.9% 140.08 mL (ALIMTA) (7 sources) Start: 10-18-2024 End: 10-18-2024 752 mg (400 mg/m2 1.88 m2 Tr eatment Plan BSA from Recorded weight), INTRAVENOUS, Administer over 10 Minutes, ONCE, 1 dose, On Fri10/18/24 at 1430, EXP: Hazardous Chemotherapy Drug: Use appropriate PPE. Start: 09-27-2024 End: 09-27-2024 752 mg (400 mg/m2 1.88 m2 Tr eatment Plan BSA from Recorded weight), INTRAVENOUS, Administer over 10 Minutes, ONCE, 1 dose, On Fri09/27/24 at 1400, EXP: Hazardous Chemotherapy Drug: Use appropriate PPE. Start: 09-03-2024 End: 09-03-2024 752 mg (400 mg/m2 1.88 m2 Tr eatment Plan BSA from Recorded weight), INTRAVENOUS, Administer over 10 Minutes, ONCE, 1 dose, On Fri09/03/24 at 1430, EXP: Hazardous Chemotherapy Drug: Use appropriate PPE. Start: 07-19-2024 End: 07-19-2024 752 mg (400 mg/m2 1.88 m2 Tr eatment Plan BSA from Recorded weight), INTRAVENOUS, Administer over 10 Minutes, ONCE, 1 dose, On Fri07/19/24 at 0930, EXP: Hazardous Chemotherapy Drug: Use appropriate PPE. Start: 06-30-2024 End: 06-30-2024 752 mg (400 mg/m2 1.88 m2 Tr eatment Plan BSA from Recorded weight), INTRAVENOUS, Administer over 10 Minutes, ONCE, 1 dose, On Fri06/30/24 at 1600, EXP: Hazardous Chemotherapy Drug: Use appropriate PPE. Start: 06-07-2024 End: 06-07-2024 752 mg (400 mg/m2 1.88 m2 Tr eatment Plan BSA from Recorded weight), INTRAVENOUS, Administer over 10 Minutes, ONCE, 1 dose, On Fri06/07/24 at 1230, EXP: Hazardous Chemotherapy Drug: Use appropriate PPE. Start: 05-14-2024 End: 05-14-2024 752 mg (400 mg/m2 1.88 m2 Tr eatment Plan BSA from Recorded weight), INTRAVENOUS, Administer over 10 Minutes, ONCE, 1 dose, On Fri05/14/24 at 1430, EXP: Hazardous Chemotherapy Drug: Use appropriate PPE. PEMEtrexed disodium 900 mg in NaCl 0.9% 146 mL (ALIMTA) (5 sources) Start: 04-23-2024 End: 04-23-2024 900 mg (rounded from 940 mg = 500 mg/m2 1.88 m2 Treatment Plan BSA from Recorded weight), INTRAVENOUS, Administer over 10 Minutes, ONCE, 1 dose, On Fri04/23/24 at 1200, EXP: Hazardous Chemotherapy Drug: Use appropriate PPE. Start: 04-02-2024 End: 04-02-2024 PEMEtrexed disodium 900 mg i n NaCl 0.9% 146 mL (ALIMTA) Start: 03-12-2024 End: 03-12-2024 PEMEtrexed disodium 900 mg i n NaCl 0.9% 146 mL (ALIMTA) Start: 02-20-2024 End: 02-20-2024 PEMEtrexed disodium 900 mg i n NaCl 0.9% 146 mL (ALIMTA) Start: 01-29-2024 End: 01-29-2024 PEMEtrexed disodium 900 mg i n NaCl 0.9% 146 mL (ALIMTA) microencapsulated potassium chloride 20 meq extended release oral tablet (1 source) Start: 02-20-2024 End: 02-20-2024 potassium chloride ER 40 mEq tab(s) (KLOR-CON) 1000 ml sodium chloride 9 mg/ml injection (1 source) Start: 02-04-2025 End: 02-04-2025 500 mL, INTRAVENOUS, at 999 mL/hr, Administer over 0.5 Hours, ONCE, 1 dose, On Fri02/04/25 at 1600 vitamin b12 1 mg/ml injectable solution (4 sources) Vitamin B12 Start: 09-03-2024 End: 09-03-2024 inject 1 dose by intramuscular injection once 1,000 mcg, INTRAMUSCULAR, ONCE, 1 dose, On Fri09/03/24 at 1430 Start: 06-07-2024 End: 06-07-2024 inject 1 dose by intramuscular injection once 1,000 mcg, INTRAMUSCULAR, ONCE, 1 dose, On Fri06/07/24 at 1300 Start: 04-02-2024 End: 04-02-2024 cyanocobalamin 1,000 mcg inj ection Start: 01-29-2024 End: 01-29-2024 cyanocobalamin 1,000 mcg inj ection Problems Active Problems Problem Classification Problem Date Documented Da te Episodic/Chronic Anxiety disorders (2 sources) Anxiety; Translations: [Anxiety disorder, unspecified] 06-19-2022 Chronic Cancer of breast (5 sources) Malignant neoplasm of upper-outer quadrant of female breast; Translations: [Malignant neoplasm of upper-outer quadrant of right female breast] 01-16-2024 Chronic Cancer of bronchus; lung (20 sources) Adenocarcinoma of lung, stage IV; Translations: [Malignant neoplasm of unspecified part of unspecified bronchus or lung] Onset: 02-18-2024 01-29-2024 Chronic Cancer; other respiratory and intrathoracic (7 sources) Malignant neoplasm of lower respiratory tract; 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] 08-05-2023 Chronic Epilepsy; convulsions (9 sources) Localization-related epilepsy; Translations: [Localization-relate d (focal) (partial) symptomatic epilepsy and epileptic syndromes with simple partial seizures, not intractable, without status epilepticus] Onset: 11-24-2024 10-13-2023 Chronic Headache; including migraine (1 source) Intractable episodic cluster headache; Translations: [Episodic cluster headache, intractable] 09-26-2023 Chronic Maintenance chemotherapy; radiotherapy (11 sources) Patient encounter status; Translations: [Encounter for antineoplastic chemotherapy] Onset: 12-24-2024 10-29-2023 Chronic Mycoses (1 source) Onychomycosis; Translations: [Tinea unguium] 06-19-2022 Episodic Neoplasms of unspecified nature or uncertain behavior (1 source) Neoplasm of unspecified behavior of brain; Translations: [Brain tumor (HCC)] Onset: 07-19-2023 Chronic Other aftercare (1 source) Surgical follow-up; Translations: [Encounter for follow-up examination after completed treatment for conditions other than malignant neoplasm] 01-16-2024 Episodic Other connective tissue disease (1 source) Swelling of limb; Translations: [Other specified soft tissue disorders] 03-01-2024 Episodic Other connective tissue disease (1 source) Swelling of lower limb; Translations: [Other specified soft tissue disorders] 06-30-2024 Episodic Other gastrointestinal disorders (1 source) Finding of abdominopelvic segment of trunk; Translations: [Intra-abdominal and pelvic swelling, mass and lump, unspecified site] 10-08-2023 Episodic Other lower respiratory disease (2 sources) Dyspnea; Translations: [Shortness of breath] 10-18-2024 Episodic Other lower respiratory disease (1 source) Rib pain; Translations: [Pleurodynia] 02-04-2025 Episodic Other lower respiratory disease (1 source) Pleurodynia; Translations: [Rib pain on left side] Onset: 02-04-2025 Episodic Other lower respiratory disease (1 source) Shortness of breath; Translations: [Shortness of breath] Onset: 12-24-2024 Episodic Other nervous system disorders (1 source) Fluent aphasia; Translations: [Aphasia] 07-19-2023 Chronic Other nervous system disorders (1 source) Aphasia; Translations: [Aphasia] Onset: 07-19-2023 Chronic Other nervous system disorders (1 source) Other specified disorders of brain; Translations: [Brain mass] Onset: 07-20-2023 Chronic Other nervous system disorders (20 sources) Vasogenic cerebral edema; Translations: [Cerebral edema] Onset: 07-21-2023 07-21-2023 Chronic Other nutritional; endocrine; and metabolic disorders (1 source) Weight loss; Translations: [Abnormal weight loss] 04-02-2024 Episodic Other screening for suspected conditions (not mental disorders or infectious disease) (3 sources) Patient encounter status; Translations: [Encounter for screening mammogram for malignant neoplasm of breast] Onset: 02-04-2025 05-05-2023 Episodic Other upper respiratory infections (1 source) Acute maxillary sinusitis; Translations: [Acute maxillary sinusitis, unspecified] 05-14-2024 Episodic Residual codes; unclassified (3 sources) H/O: breast problem; Translations: [Personal history of other specified conditions] 10-27-2023 Episodic Residual codes; unclassified (20 sources) Other specified postprocedural states; Translations: [Other postprocedural status] Onset: 02-13-2024 02-02-2024 Episodic Secondary malignancies (20 sources) Secondary malignant neoplasm of brain; Translations: [Secondary malignant neoplasm of brain] Onset: 07-20-2023 07-28-2023 Chronic Secondary malignancies (2 sources) Secondary malignant neoplasm of brain; Translations: [Metastasis to brain (HCC)] Onset: 07-21-2023 Chronic Spondylosis; intervertebral disc disorders; other back problems (1 source) Chronic low back pain; Translations: [Chronic low back pain] 06-19-2022 Episodic Unclassified (1 source) Established Patient Onset: 03-16-2025 Past or Other Problems Problem Classification Problem Date Documented Da te Episodic/Chronic Epilepsy; convulsions (20 sources) Unspecified convulsions; Translations: [Seizure] Onset: 07-19-2023 07-21-2023 Episodic Neoplasms of unspecified nature or uncertain behavior (20 sources) Neoplasm of unspecified behavior of respiratory system; Translations: [Neoplasm of lung ] Onset: 07-19-2023 08-04-2023 Episodic Nonmalignant breast conditions (20 sources) Breast lump; Translations: [Unspecified lump in unspecified breast] Onset: 07-21-2023 07-21-2023 Episodic Other lower respiratory disease (20 sources) Lung mass; Translations: [Other nonspecific abnormal finding of lung field] Onset: 07-21-2023 07-22-2023 Episodic Residual codes; unclassified (20 sources) Tobacco user; Translations: [Tobacco use] Onset: 07-21-2023 07-21-2023 Episodic Residual codes; unclassified (20 sources) At risk of epileptic fits; Translations: [Other specified personal risk factors, not elsewhere classified] Onset: 07-21-2023 07-21-2023 Episodic Residual codes; unclassified (20 sources) At risk of lymphedema; Translations: [Other specified personal risk factors, not elsewhere classified] Onset: 07-21-2023 02-02-2024 Episodic Results Test Name Value Interpretation Reference Range Facility CBC W Auto Differential pane l (Bld)on 03-16-2025 Basophils (Bld) [#/Vol] 0.04 10*3/uL [facility] Basophils/100 WBC (Bld) 0.7 % [facility] Differential cell count method Nom (Bld) Auto [facility] Eosinophils (Bld) [#/Vol] 0.26 10*3/uL [facility] Eosinophils/100 WBC (Bld) 4.3 % [facility] Erythrocyte distribution width (RBC) [Ratio] 12.3 % 11.5 - 15.0 % [facility] Hematocrit (Bld) [Volume fraction] 38.4 % 36.0 - 46.0 % [facility] Hemoglobin (Bld) [Mass/Vol] 13.5 g/dL 11.5 - 15.5 g/dL [facility] Immature granulocytes (Bld) [#/Vol] [facility] Immature granulocytes/100 WBC (Bld) 0.2 % [facility] Interpretation and review of laboratory results Abnormal [facility] Lymphocytes (Bld) [#/Vol] 2.79 10*3/uL [facility] Lymphocytes/100 WBC (Bld) 46.7 % [facility] MCH (RBC) [Entitic mass] 32.7 pg 26.0 - 34.0 pg [facility] MCHC (RBC) [Mass/Vol] 35.2 g/dL 30.5 - 36.0 g/dL [facility] MCV (RBC) [Entitic vol] 93 fL 80.0 - 100.0 fL [facility] Monocytes (Bld) [#/Vol] 0.33 10*3/[facility] Monocytes/100 WBC (Bld) 5.5 % [facility] Neutrophils (Bld) [#/Vol] 2.55 10*3/uL [facility] Neutrophils/100 WBC (Bld) 42.6 % [facility] Nucleated RBC (Bld) [#/Vol] NINF [facility] Nucleated RBC/100 WBC (Bld) [Ratio] 0 % /100 WBC [facility] Platelet mean volume (Bld) [Entitic vol] 8.8 fL Low 9.0 - 12.7 fL [facility] Platelets (Bld) [#/Vol] 236 10*3/uL [facility] RBC (Bld) [#/Vol] 4.13 10*6/uL 3.90 - 5.2 0 m/uL [facility] WBC (Bld) [#/Vol] 5.98 10*3/uL [facility] Basophils (Bld) [#/Vol] 0.04 10*3/uL Normal <0.11 [facility] Comment on above: Order Comment: Speci men Type: BLOOD SPECIMENOrdering Facility: [facility] Address: [address] [place] [address] Performed By: #### 5 7021-8 ####[facility] [id number] [place] [address] [place] Basophils/100 WBC (Bld) 0.7 % Normal [facility] Comment on above: Order Comment: Speci men Type: BLOOD SPECIMENOrdering Facility: [facility] Address: [address] [place] [address] Performed By: #### 5 7021-8 ####[facility] [id number] [place] [address] [place] Differential cell count method Nom (Bld) Auto Normal [facility] Comment on above: Order Comment: Speci men Type: BLOOD SPECIMENOrdering Facility: [facility] Address: [address] [place] [address] Performed By: #### 5 7021-8 ####[facility] [id number] [place] [address] [place] Eosinophils (Bld) [#/Vol] 0.26 10*3/uL Normal <0.46 [facility] Comment on above: Order Comment: Speci men Type: BLOOD SPECIMENOrdering Facility: [facility] Address: [address] [place] [address] Performed By: #### 5 7021-8 ####[facility] [id number] [place] [address] [place] Eosinophils/100 WBC (Bld) 4.3 % Normal [facility] Comment on above: Order Comment: Speci men Type: BLOOD SPECIMENOrdering Facility: [facility] Address: [address] [place] [address] Performed By: #### 5 7021-8 ####[facility] [id number] [place] [address] [place] Erythrocyte distribution width (RBC) [Ratio] 12.3 % Normal 11.5-15.0 [facility] Comment on above: Order Comment: Speci men Type: BLOOD SPECIMENOrdering Facility: [facility] Address: [address] [place] [address] Performed By: #### 5 7021-8 ####[facility] [id number] [place] [address] [place] Hematocrit (Bld) [Volume fraction] 38.4 % Normal 36.0-46.0 [facility] Comment on above: Order Comment: Speci men Type: BLOOD SPECIMENOrdering Facility: [facility] Address: [address] [place] [address] Performed By: #### 5 7021-8 ####[facility] [id number] [place] [address] [place] Hemoglobin (Bld) [Mass/Vol] 13.5 g/dL Normal 11.5-15.5 [facility] Comment on above: Order Comment: Speci men Type: BLOOD SPECIMENOrdering Facility: [facility] Address: [address] [place] [address] Performed By: #### 5 7021-8 ####[facility] [id number] [place] [address] [place] Immature granulocytes (Bld) [#/Vol] 10*3/uL Normal <0.10 [facility] Comment on above: Order Comment: Speci men Type: BLOOD SPECIMENOrdering Facility: [facility] Address: [address] [place] [address] Performed By: #### 5 7021-8 ####[facility] [id number] [place] [address] [place] Immature granulocytes/100 WBC (Bld) 0.2 % Normal [facility] Comment on above: Order Comment: Speci men Type: BLOOD SPECIMENOrdering Facility: [facility] Address: [address] [place] [address] Performed By: #### 5 7021-8 ####[facility] [id number] [place] [address] [place] Lymphocytes (Bld) [#/Vol] 2.79 10*3/uL Normal 1.00-4.00 [facility] Comment on above: Order Comment: Speci men Type: BLOOD SPECIMENOrdering Facility: [facility] Address: [address] [place] [address] Performed By: #### 5 7021-8 ####[facility] [id number] [place] [address] [place] Lymphocytes/100 WBC (Bld) 46.7 % Normal [facility] Comment on above: Order Comment: Speci men Type: BLOOD SPECIMENOrdering Facility: [facility] Address: [address] [place] [address] Performed By: #### 5 7021-8 ####[facility] [id number] [place] [address] [place] MCH (RBC) [Entitic mass] 32.7 pg Normal 26.0-34.0 [facility] Comment on above: Order Comment: Speci men Type: BLOOD SPECIMENOrdering Facility: [facility] Address: [address] [place] [address] Performed By: #### 5 7021-8 ####[facility] [id number] [place] [address] [place] MCHC (RBC) [Mass/Vol] 35.2 g/dL Normal 30.5-36.0 [facility] Comment on above: Order Comment: Speci men Type: BLOOD SPECIMENOrdering Facility: [facility] Address: [address] [place] [address] Performed By: #### 5 7021-8 ####[facility] [id number] [place] [address] [place] MCV (RBC) [Entitic vol] 93.0 fL Normal 80.0-100.0 [facility] Comment on above: Order Comment: Speci men Type: BLOOD SPECIMENOrdering Facility: [facility] Address: [address] [place] [address] Performed By: #### 5 7021-8 ####[facility] [id number] [place] [address] [place] Monocytes (Bld) [#/Vol] 0.33 10*3/uL Normal <0.87 [facility] Comment on above: Order Comment: Speci men Type: BLOOD SPECIMENOrdering Facility: [facility] Address: [address] [place] [address] Performed By: #### 5 7021-8 ####[facility] [id number] [place] [address] [place] Monocytes/100 WBC (Bld) 5.5 % Normal [facility] Comment on above: Order Comment: Speci men Type: BLOOD SPECIMENOrdering Facility: [facility] Address: [address] [place] [address] Performed By: #### 5 7021-8 ####[facility] [id number] [place] [address] [place] Neutrophils (Bld) [#/Vol] 2.55 10*3/uL Normal 1.45-7.50 [facility] Comment on above: Order Comment: Speci men Type: BLOOD SPECIMENOrdering Facility: [facility] Address: [address] [place] [address] Performed By: #### 5 7021-8 ####[facility] [id number] [place] [address] [place] Neutrophils/100 WBC (Bld) 42.6 % Normal [facility] Comment on above: Order Comment: Speci men Type: BLOOD SPECIMENOrdering Facility: [facility] Address: [address] [place] [address] Performed By: #### 5 7021-8 ####[facility] [id number] [place] [address] [place] Nucleated RBC (Bld) [#/Vol] 10*3/uL Normal <0.01 [facility] Comment on above: Order Comment: Speci men Type: BLOOD SPECIMENOrdering Facility: [facility] Address: [address] [place] [address] Performed By: #### 5 7021-8 ####[facility] [id number] [place] [address] [place] Nucleated RBC/100 WBC (Bld) [Ratio] 0.0 /100 WBC Normal [facility] Comment on above: Order Comment: Speci men Type: BLOOD SPECIMENOrdering Facility: [facility] Address: [address] [place] [address] Performed By: #### 5 7021-8 ####[facility] [id number] [place] [address] [place] Platelet mean volume (Bld) [Entitic vol] 8.8 fL Low 9.0-12.7 [facility] Comment on above: Order Comment: Speci men Type: BLOOD SPECIMENOrdering Facility: [facility] Address: [address] [place] [address] Performed By: #### 5 7021-8 ####[facility] [id number] [place] [address] [place] Platelets (Bld) [#/Vol] 236 10*3/uL Normal 150-400 [facility] Comment on above: Order Comment: Speci men Type: BLOOD SPECIMENOrdering Facility: [facility] Address: [address] [place] [address] Performed By: #### 5 7021-8 ####[facility] [place] [id number] [place] [address] [place] RBC (Bld) [#/Vol] 4.13 10*6/uL Normal 3.90-5.20 [facility] Comment on above: Order Comment: Speci men Type: BLOOD SPECIMENOrdering Facility: [facility] Address: [address] [place] [address] Performed By: #### 5 7021-8 ####[facility] [place] [id number] [place] [address] [place] WBC (Bld) [#/Vol] 5.98 10*3/uL Normal 3.70-11.00 [facility] Comment on above: Order Comment: Speci men Type: BLOOD SPECIMENOrdering Facility: [facility] Address: [address] [place] [address] Performed By: #### 5 7021-8 ####[facility] [id number] [address] [place] [id number] [id number] [place] CNOVSPon 03-16-2025 CNOVSP Normal [facility] metabolic 2000 panelon 03-16-2025 Albumin [Mass/Vol] 4.3 g/dL 3.9 - 4.9 g/dL [facility] ALP [Catalytic activity/Vol] 108 U/L 34 - 123 U/L [facility] ALT [Catalytic activity/Vol] 21 U/L 7 - 38 U/L [facility] Anion gap [Moles/Vol] 11 mmol/L 8 - 15 mmol/L [facility] AST [Catalytic activity/Vol] 23 U/L 13 - 35 U/L [facility] Bilirubin [Mass/Vol] 0.3 mg/dL 0.2 - 1 .3 mg/dL [facility] Calcium [Mass/Vol] 9.3 mg/dL 8.5 - 10. 2 mg/dL [facility] Chloride [Moles/Vol] 107 mmol/L 98 - 10 7 mmol/L [facility] CO2 [Moles/Vol] 23 mmol/L 22 - 30 mmol/L [facility] Creatinine [Mass/Vol] 0.79 mg/dL 0.58 - 0.96 mg/dL [facility] GFR/1.73 sq M.predicted among non-blacks MDRD (S/P/Bld) [Vol rate/Area] 88 mL/min/{1.73_m2} - PINF [facility] Comment on above: Estimated Glomerular Filtration Rate (eGFR) is calculated using the 2020 CKD-EPI creatinine equation. This equation utilizes serum creatinine, sex, and age as parameters. The creatinine assay has traceable calibration to isotope dilution-mass spectrometry. Refer to KDIGO guidelines for clinical interpretation. In patients with unstable renal function, e.g. those with acute kidney injury, the eGFR may not accurately reflect actual GFR. Glucose [Mass/Vol] 159 mg/dL High 74 - 99 mg/dL [facility] Comment on above: The English Diabete s Association (ADA) provides guidance for cutoff values for fasting glucose and random glucose. The ADA defines fasting as no caloric intake for at least 8 hours. Fasting plasma glucose results between 100 to 125 mg/dL indicate increased risk for diabetes (prediabetes). Fasting plasma glucose results greater than or equal to 126 mg/dL meet the criteria for diagnosis of diabetes. In the absence of unequivocal hyperglycemia, results should be confirmed by repeat testing. In a patient with classic symptoms of hyperglycemia or hyperglycemic crisis, random plasma glucose results greater than or equal to 200 mg/dL meet the criteria for diagnosis of diabetes. Reference: Standards of Medical Care in Diabetes 2016, English Diabetes Association. Diabetes Care. 2016.39(Suppl 1). Interpretation and review of laboratory results Abnormal [facility] Potassium [Moles/Vol] 3.9 mmol/L 3.7 - 5.1 mmol/L [facility] Protein [Mass/Vol] 7.1 g/dL 6.3 - 8.0 g/dL [facility] Sodium [Moles/Vol] 141 mmol/L 136 - 144 mmol/L [facility] Urea nitrogen [Mass/Vol] 12 mg/dL 7 - 21 mg/dL [facility] Albumin [Mass/Vol] 4.3 g/dL Normal 3.9-4.9 [facility] Comment on above: Order Comment: Speci men Type: BLOOD SPECIMENOrdering Facility: [facility] Address: [address] [place] [address] Performed By: #### 2 4323-8 ####[facility] LABCLIA [id number] [place] [address] [place] ALP [Catalytic activity/Vol] 108 U/L Normal 34-123 [facility] Comment on above: Order Comment: Speci men Type: BLOOD SPECIMENOrdering Facility: [facility] Address: [address] [place] [address] Performed By: #### 2 4323-8 ####[facility] LABCLIA [id number] [place] [address] [place] ALT [Catalytic activity/Vol] 21 U/L Normal 7-38 [facility] Comment on above: Order Comment: Speci men Type: BLOOD SPECIMENOrdering Facility: [facility] Address: [address] [place] [address] Performed By: #### 2 4323-8 ####[facility] LABCLIA [id number] [address], [facility]95 [place] Anion gap [Moles/Vol] 11 mmol/L Normal 8-15 [facility] Comment on above: Order Comment: Speci men Type: BLOOD SPECIMENOrdering Facility: [facility] Address: [address] [place] [address] Performed By: #### 2 4323-8 ####[facility] LABCLIA [id number] [place] [address] [place] AST [Catalytic activity/Vol] 23 U/L Normal 13-35 [facility] Comment on above: Order Comment: Speci men Type: BLOOD SPECIMENOrdering Facility: [facility] Address: [address] [place] [address] Performed By: #### 2 4323-8 ####[facility] LABCLIA [id number] [address], [facility]95 [place] Bilirubin [Mass/Vol] 0.3 mg/dL Normal 0.2-1.3 [facility] Comment on above: Order Comment: Speci men Type: BLOOD SPECIMENOrdering Facility: [facility] Address: [address] [place] [address] Performed By: #### 2 4323-8 ####[facility] LABCLIA [id number] [facility] [place] [place] [id number] [place] Calcium [Mass/Vol] 9.3 mg/dL Normal 8.5-10.2 [facility] Comment on above: Order Comment: Speci men Type: BLOOD SPECIMENOrdering Facility: [facility] Address: [address] [place], [place] [address] Performed By: #### 2 4323-8 ####[facility] LABCLIA [id number] [address] [address] [place] Chloride [Moles/Vol] 107 mmol/L Normal 98-107 [facility] Comment on above: Order Comment: Speci men Type: BLOOD SPECIMENOrdering Facility: [facility] Address: [address] [place] [address] Performed By: #### 2 4323-8 ####[facility] LABCLIA [id number] [place] [id number] [place] CO2 [Moles/Vol] 23 mmol/L Normal 22-30 [facility] Comment on above: Order Comment: Speci men Type: BLOOD SPECIMENOrdering Facility: [facility] Address: [address] [place] [address] Performed By: #### 2 4323-8 ####[facility] LABIA [id number] [place] [address] [place] Creatinine [Mass/Vol] 0.79 mg/dL Normal 0.58-0.96 [facility] Comment on above: Order Comment: Speci men Type: BLOOD SPECIMENOrdering Facility: [facility] Address: [address] [place] [address] Performed By: #### 2 4323-8 ####[facility] LABIA [id number] [place] [id number] [place] eGFRcr SerPlBld CKD-EPI 2020 88 mL/min/1.73m??? Normal >=60 [facility] Comment on above: Order Comment: Speci men Type: BLOOD SPECIMENOrdering Facility: [facility] Address: [address] [place] [address] Result Comment: Jina mated Glomerular Filtration Rate (eGFR) is calculated using the 2020 CKD-EPI creatinine equation. This equation utilizes serum creatinine, sex, and age as parameters. The creatinine assay has traceable calibration to isotope dilution-mass spectrometry. Refer to KDIGO guidelines for clinical interpretation. In patients with unstable renal function, e.g. those with acute kidney injury, the eGFR may not accurately reflect actual GFR. Performed By: #### 2 4323-8 ####[facility] LABCLIA [id number] [place] [address] [place] Glucose [Mass/Vol] 159 mg/dL High 74-99 [facility] Comment on above: Order Comment: Speci men Type: BLOOD SPECIMENOrdering Facility: [facility] Address: [address] [place] [address] Result Comment: The English Diabetes Association (ADA) provides guidance for cutoff values for fasting glucose and random glucose. The ADA defines fasting as no caloric intake for at least 8 hours. Fasting plasma glucose results between 100 to 125 mg/dL indicate increased risk for diabetes (prediabetes).Fasting plasma glucose results greater than or equal to 126 mg/dL meet the criteria for diagnosis of diabetes. In the absence of unequivocal hyperglycemia, results should be confirmed by repeat testing. In a patient with classic symptoms of hyperglycemia or hyperglycemic crisis, random plasma glucose results greater than or equal to 200 mg/dL meet the criteria for diagnosis of diabetes.Reference: Standards of Medical Care in Diabetes 2016, English Diabetes Association. Diabetes Care. 2016.39(Suppl 1). Performed By: #### 2 4323-8 ####[facility] LABCLIA [id number] [place] [address] [place] Potassium [Moles/Vol] 3.9 mmol/L Normal 3.7-5.1 [facility] Comment on above: Order Comment: Speci men Type: BLOOD SPECIMENOrdering Facility: [facility] Address: [address] [place] [address] Performed By: #### 2 4323-8 ####[facility] LABCLIA [id number] [place] [id number] [place] Protein [Mass/Vol] 7.1 g/dL Normal 6.3-8.0 [facility] Comment on above: Order Comment: Speci men Type: BLOOD SPECIMENOrdering Facility: [facility] Address: [address] [place] [address] Performed By: #### 2 4323-8 ####[facility] LABCLIA [id number] [place] [address] [place] Sodium [Moles/Vol] 141 mmol/L Normal 136-144 [facility] Comment on above: Order Comment: Speci men Type: BLOOD SPECIMENOrdering Facility: [facility] Address: [address] [place] [address] Performed By: #### 2 4323-8 ####[facility] LABIA [id number] [place] [address] [place] Urea nitrogen [Mass/Vol] 12 mg/dL Normal 7-21 [facility] Comment on above: Order Comment: Speci men Type: BLOOD SPECIMENOrdering Facility: [facility] Address: [address] [place] [address] Performed By: #### 2 4323-8 ####[facility] LABIA [id number] [place] [address] [place] THYROID STIMULATING HORMONEo n 03-16-2025 TSH Qn 0.865 m[IU]/L [facility] TSH Qnon 03-16-2025 Interpretation and review of laboratory results Normal [facility] TSH SerPl-aCncon 03-16-2025 TSH Qn 0.865 m[IU]/L Normal 0.270-4.200 [facility] Comment on above: Order Comment: Speci men Type: BLOOD SPECIMENOrdering Facility: [facility] Address: [address] [place] [address] Performed By: #### 3 016-3 ####[facility] LABIA [id number] [place] [id number] [place] CBC W Auto Differential pane l (Bld)on 02-04-2025 Basophils (Bld) [#/Vol] 0.06 10*3/uL NINF [facility] Basophils/100 WBC (Bld) 0.7 % [facility] Differential cell count method Nom (Bld) Auto [facility] Eosinophils (Bld) [#/Vol] 0.35 10*3/uL [facility] Eosinophils/100 WBC (Bld) 4.3 % [facility] Erythrocyte distribution width (RBC) [Ratio] 11.9 % 11.5 - 15.0 % [facility] Hematocrit (Bld) [Volume fraction] 39.9 % 36.0 - 46.0 % [facility] Hemoglobin (Bld) [Mass/Vol] 14 g/dL 11.5 - 15.5 g/dL [facility] Immature granulocytes (Bld) [#/Vol] [facility] Immature granulocytes/100 WBC (Bld) 0.1 % [facility] Interpretation and review of laboratory results Abnormal [facility] Lymphocytes (Bld) [#/Vol] 3.52 10*3/uL [facility] Lymphocytes/100 WBC (Bld) 43.1 % [facility] MCH (RBC) [Entitic mass] 33 pg 26.0 - 34.0 pg [facility] MCHC (RBC) [Mass/Vol] 35.1 g/dL 30.5 - 36.0 g/dL [facility] MCV (RBC) [Entitic vol] 94.1 fL 80.0 - 100.0 fL [facility] Monocytes (Bld) [#/Vol] 0.75 10*3/uL [facility] Monocytes/100 WBC (Bld) 9.2 % [facility] Neutrophils (Bld) [#/Vol] 3.47 10*3/uL [facility] Neutrophils/100 WBC (Bld) 42.6 % [facility] Nucleated RBC (Bld) [#/Vol] [facility] Nucleated RBC/100 WBC (Bld) [Ratio] 0 % /100 WBC [facility] Platelet mean volume (Bld) [Entitic vol] 8.9 fL Low 9.0 - 12.7 fL [facility] Platelets (Bld) [#/Vol] 232 10*3/uL [facility] RBC (Bld) [#/Vol] 4.24 10*6/uL 3.90 - 5.2 0 m/uL [facility] WBC (Bld) [#/Vol] 8.16 10*3/uL [facility] Basophils (Bld) [#/Vol] 0.06 10*3/uL Normal <0.11 [facility] Comment on above: Order Comment: Speci men Type: BLOOD SPECIMENOrdering Facility: [facility] Address: [address] [place] [address] Performed By: #### 5 7021-8 ####[facility] [id number] [place] [address] [place] Basophils/100 WBC (Bld) 0.7 % Normal [facility] Comment on above: Order Comment: Speci men Type: BLOOD SPECIMENOrdering Facility: [facility] Address: [address] [place] [address] Performed By: #### 5 7021-8 ####[facility] [id number] [place] [address] [place] Differential cell count method Nom (Bld) Auto Normal [facility] Comment on above: Order Comment: Speci men Type: BLOOD SPECIMENOrdering Facility: [facility] Address: [address] [place] [address] Performed By: #### 5 7021-8 ####[facility] [id number] [place] [address] [place] Eosinophils (Bld) [#/Vol] 0.35 10*3/uL Normal <0.46 [facility] Comment on above: Order Comment: Speci men Type: BLOOD SPECIMENOrdering Facility: [facility] Address: [address] [place] [address] Performed By: #### 5 7021-8 ####[facility] [id number] [place] [address] [place] Eosinophils/100 WBC (Bld) 4.3 % Normal [facility] Comment on above: Order Comment: Speci men Type: BLOOD SPECIMENOrdering Facility: [facility] Address: [address] [place] [address] Performed By: #### 5 7021-8 ####[facility] [place] [id number] [place] [address] [place] Erythrocyte distribution width (RBC) [Ratio] 11.9 % Normal 11.5-15.0 [facility] Comment on above: Order Comment: Speci men Type: BLOOD SPECIMENOrdering Facility: [facility] Address: [address] [place] [address] Performed By: #### 5 7021-8 ####[facility] [id number] [place] [address] [place] Hematocrit (Bld) [Volume fraction] 39.9 % Normal 36.0-46.0 [facility] Comment on above: Order Comment: Speci men Type: BLOOD SPECIMENOrdering Facility: [facility] Address: [address] [place] [address] Performed By: #### 5 7021-8 ####[facility] [place] [id number] [place] [address] [place] Hemoglobin (Bld) [Mass/Vol] 14.0 g/dL Normal 11.5-15.5 [facility] Comment on above: Order Comment: Speci men Type: BLOOD SPECIMENOrdering Facility: [facility] Address: [address] [place] [address] Performed By: #### 5 7021-8 ####[facility] [place] [id number] [place] [address] [place] Immature granulocytes (Bld) [#/Vol] 10*3/uL Normal <0.10 [facility] Comment on above: Order Comment: Speci men Type: BLOOD SPECIMENOrdering Facility: [facility] Address: [address] [place] [address] Performed By: #### 5 7021-8 ####[facility] [id number] [place] [address] [place] Immature granulocytes/100 WBC (Bld) 0.1 % Normal [facility] Comment on above: Order Comment: Speci men Type: BLOOD SPECIMENOrdering Facility: [facility] Address: [address] [place] [address] Performed By: #### 5 7021-8 ####[facility] [place] [id number] [place] [address] [place] Lymphocytes (Bld) [#/Vol] 3.52 10*3/uL Normal 1.00-4.00 [facility] Comment on above: Order Comment: Speci men Type: BLOOD SPECIMENOrdering Facility: [facility] Address: [address] [place] [address] Performed By: #### 5 7021-8 ####[facility] [place] [id number] [place] [address] [place] Lymphocytes/100 WBC (Bld) 43.1 % Normal [facility] Comment on above: Order Comment: Speci men Type: BLOOD SPECIMENOrdering Facility: [facility] Address: [address] [place] [address] Performed By: #### 5 7021-8 ####[facility] [id number] [place] [address] [place] MCH (RBC) [Entitic mass] 33.0 pg Normal 26.0-34.0 [facility] Comment on above: Order Comment: Speci men Type: BLOOD SPECIMENOrdering Facility: [facility] Address: [address] [place] [address] Performed By: #### 5 7021-8 ####[facility] [id number] [place] [address] [place] MCHC (RBC) [Mass/Vol] 35.1 g/dL Normal 30.5-36.0 [facility] Comment on above: Order Comment: Speci men Type: BLOOD SPECIMENOrdering Facility: [facility] Address: [address] [place] [address] Performed By: #### 5 7021-8 ####[facility] [id number] [place] [address] [place] MCV (RBC) [Entitic vol] 94.1 fL Normal 80.0-100.0 [facility] Comment on above: Order Comment: Speci men Type: BLOOD SPECIMENOrdering Facility: [facility] Address: [address] [place] [address] Performed By: #### 5 7021-8 ####[facility] [id number] [place] [address] [place] Monocytes (Bld) [#/Vol] 0.75 10*3/uL Normal <0.87 [facility] Comment on above: Order Comment: Speci men Type: BLOOD SPECIMENOrdering Facility: [facility] Address: [address] [place] [address] Performed By: #### 5 7021-8 ####[facility] [id number] [place] [address] [place] Monocytes/100 WBC (Bld) 9.2 % Normal [facility] Comment on above: Order Comment: Speci men Type: BLOOD SPECIMENOrdering Facility: [facility] Address: [address] [place] [address] Performed By: #### 5 7021-8 ####[facility] [id number] [place] [address] [place] Neutrophils (Bld) [#/Vol] 3.47 10*3/uL Normal 1.45-7.50 [facility] Comment on above: Order Comment: Speci men Type: BLOOD SPECIMENOrdering Facility: [facility] Address: [address] [place] [address] Performed By: #### 5 7021-8 ####[facility] [place] [id number] [place] [address] [place] Neutrophils/100 WBC (Bld) 42.6 % Normal [facility] Comment on above: Order Comment: Speci men Type: BLOOD SPECIMENOrdering Facility: [facility] Address: [address] [place] [address] Performed By: #### 5 7021-8 ####[facility] [place] [id number] [place] [address] [place] Nucleated RBC (Bld) [#/Vol] 10*3/uL Normal <0.01 [facility] Comment on above: Order Comment: Speci men Type: BLOOD SPECIMENOrdering Facility: [facility] Address: [address] [place] [address] Performed By: #### 5 7021-8 ####[facility] [id number] [place] [address] [place] Nucleated RBC/100 WBC (Bld) [Ratio] 0.0 /100 WBC Normal [facility] Comment on above: Order Comment: Speci men Type: BLOOD SPECIMENOrdering Facility: [facility] Address: [address] [place] [address] Performed By: #### 5 7021-8 ####[facility] [id number] [place] [address] [place] Platelet mean volume (Bld) [Entitic vol] 8.9 fL Low 9.0-12.7 [facility] Comment on above: Order Comment: Speci men Type: BLOOD SPECIMENOrdering Facility: [facility] Address: [address] [place] [address] Performed By: #### 5 7021-8 ####[facility] [place] [id number] [place] [address] [place] Platelets (Bld) [#/Vol] 232 10*3/uL Normal 150-400 [facility] Comment on above: Order Comment: Speci men Type: BLOOD SPECIMENOrdering Facility: [facility] Address: [address] [place] [address] Performed By: #### 5 7021-8 ####[facility] [id number] [place] [address] [place] RBC (Bld) [#/Vol] 4.24 10*6/uL Normal 3.90-5.20 [facility] Comment on above: Order Comment: Speci men Type: BLOOD SPECIMENOrdering Facility: [facility] Address: [address] [place] [address] Performed By: #### 5 7021-8 ####[facility] [id number] [place] [address] [place] WBC (Bld) [#/Vol] 8.16 10*3/uL Normal 3.70-11.00 [facility] Comment on above: Order Comment: Speci men Type: BLOOD SPECIMENOrdering Facility: [facility] Address: [address] [place] [address] Performed By: #### 5 7021-8 ####[facility] [id number] [place] [address] [place] CNOVon 02-04-2025 CNOV Normal [facility] CNOVSPon 02-04-2025 CNOVSP Normal [facility] Comprehensive metabolic 2000 panelon 02-04-2025 Albumin [Mass/Vol] 4.3 g/dL 3.9 - 4.9 g/dL [facility] ALP [Catalytic activity/Vol] 114 U/L 34 - 123 U/L [facility] ALT [Catalytic activity/Vol] 21 U/L 7 - 38 U/L [facility] Anion gap [Moles/Vol] 11 mmol/L 8 - 15 mmol/L [facility] AST [Catalytic activity/Vol] 26 U/L 13 - 35 U/L [facility] Bilirubin [Mass/Vol] 0.3 mg/dL 0.2 - 1 .3 mg/dL [facility] Calcium [Mass/Vol] 9.4 mg/dL 8.5 - 10. 2 mg/dL [facility] Chloride [Moles/Vol] 105 mmol/L 98 - 10 7 mmol/L [facility] CO2 [Moles/Vol] 24 mmol/L 22 - 30 mmol/L [facility] Creatinine [Mass/Vol] 1.1 mg/dL High 0.58 - 0.96 mg/dL [facility] GFR/1.73 sq M.predicted among non-blacks MDRD (S/P/Bld) [Vol rate/Area] 59 mL/min/{1.73_m2} Low - PINF [facility] Comment on above: Estimated Glomerular Filtration Rate (eGFR) is calculated using the 2020 CKD-EPI creatinine equation. This equation utilizes serum creatinine, sex, and age as parameters. The creatinine assay has traceable calibration to isotope dilution-mass spectrometry. Refer to KDIGO guidelines for clinical interpretation. In patients with unstable renal function, e.g. those with acute kidney injury, the eGFR may not accurately reflect actual GFR. Glucose [Mass/Vol] 84 mg/dL 74 - 99 mg/dL [facility] Comment on above: The [employer] Diab[employer] s Association (ADA) provides guidance for cutoff values for fasting glucose and random glucose. The ADA defines fasting as no caloric intake for at least 8 hours. Fasting plasma glucose results between 100 to 125 mg/dL indicate increased risk for diabetes (prediabetes). Fasting plasma glucose results greater than or equal to 126 mg/dL meet the criteria for diagnosis of diabetes. In the absence of unequivocal hyperglycemia, results should be confirmed by repeat testing. In a patient with classic symptoms of hyperglycemia or hyperglycemic crisis, random plasma glucose results greater than or equal to 200 mg/dL meet the criteria for diagnosis of diabetes. Reference: Standards of Medical Care in Diabetes 2016, English Diabetes Association. Diabetes Care. 2016.39(Suppl 1). Interpretation and review of laboratory results Abnormal [facility] Potassium [Moles/Vol] 4 mmol/L 3.7 - 5.1 mmol/L [facility] Protein [Mass/Vol] 7.1 g/dL 6.3 - 8.0 g/dL [facility] Sodium [Moles/Vol] 140 mmol/L 136 - 144 mmol/L [facility] Urea nitrogen [Mass/Vol] 17 mg/dL 7 - 21 mg/dL [facility] Albumin [Mass/Vol] 4.3 g/dL Normal 3.9-4.9 [facility] Comment on above: Order Comment: Speci men Type: BLOOD SPECIMENOrdering Facility: [facility] Address: [address] [place] [address] Performed By: #### 2 4323-8 ####[facility] [id number] [place] [address] [place] ALP [Catalytic activity/Vol] 114 U/L Normal 34-123 [facility] Comment on above: Order Comment: Speci men Type: BLOOD SPECIMENOrdering Facility: [facility] Address: [address] [place] [address] Performed By: #### 2 4323-8 ####[facility] [id number] [place] [address] [place] ALT [Catalytic activity/Vol] 21 U/L Normal 7-38 [facility] Comment on above: Order Comment: Speci men Type: BLOOD SPECIMENOrdering Facility: [facility] Address: [address] [place] [address] Performed By: #### 2 4323-8 ####[facility] [id number] [place] [address] [place] Anion gap [Moles/Vol] 11 mmol/L Normal 8-15 [facility] Comment on above: Order Comment: Speci men Type: BLOOD SPECIMENOrdering Facility: [facility] Address: [address] [place] [address] Performed By: #### 2 4323-8 ####[facility] [id number] [place] [address] [place] AST [Catalytic activity/Vol] 26 U/L Normal 13-35 [facility] Comment on above: Order Comment: Speci men Type: BLOOD SPECIMENOrdering Facility: [facility] Address: [address] [place] [address] Performed By: #### 2 4323-8 ####[facility] [id number] [place] [address] [place] Bilirubin [Mass/Vol] 0.3 mg/dL Normal 0.2-1.3 [facility] Comment on above: Order Comment: Speci men Type: BLOOD SPECIMENOrdering Facility: [facility] Address: [address] [place] [address] Performed By: #### 2 4323-8 ####[facility] [id number] [place] [address] [place] Calcium [Mass/Vol] 9.4 mg/dL Normal 8.5-10.2 [facility] Comment on above: Order Comment: Speci men Type: BLOOD SPECIMENOrdering Facility: [facility] Address: [address] [place] [address] Performed By: #### 2 4323-8 ####[facility] [id number] [place] [address] [place] Chloride [Moles/Vol] 105 mmol/L Normal 98-107 [facility] Comment on above: Order Comment: Speci men Type: BLOOD SPECIMENOrdering Facility: [facility] Address: [address] [place] [address] Performed By: #### 2 4323-8 ####[facility] [id number] [place] [address] [place] CO2 [Moles/Vol] 24 mmol/L Normal 22-30 [facility] Comment on above: Order Comment: Speci men Type: BLOOD SPECIMENOrdering Facility: [facility] Address: [address] [place] [address] Performed By: #### 2 4323-8 ####[facility] [id number] [place] [address] [place] Creatinine [Mass/Vol] 1.10 mg/dL High 0.58-0.96 [facility] Comment on above: Order Comment: Speci men Type: BLOOD SPECIMENOrdering Facility: [facility] Address: [address] [place] [address] Performed By: #### 2 4323-8 ####[facility] [id number] [place] [address] [place] Creatinine and Glomerular filtration rate.predicted panel (S/P/Bld) 59 mL/min/1.73m??? Low >=60 [facility] Comment on above: Order Comment: Eris staton Type: BLOOD SPECIMENOrdering Facility: [facility] Address: [address] [place] [address] Result Comment: Jina mated Glomerular Filtration Rate (eGFR) is calculated using the 2020 CKD-EPI creatinine equation. This equation utilizes serum creatinine, sex, and age as parameters. The creatinine assay has traceable calibration to isotope dilution-mass spectrometry. Refer to KDIGO guidelines for clinical interpretation. In patients with unstable renal function, e.g. those with acute kidney injury, the eGFR may not accurately reflect actual GFR. Performed By: #### 2 4323-8 ####[facility] [id number] [place] [address] [place] Glucose [Mass/Vol] 84 mg/dL Normal 74-99 [facility] Comment on above: Order Comment: Eris staton Type: BLOOD SPECIMENOrdering Facility: [facility] Address: [address] [place] [address] Result Comment: The English Diabetes Association (ADA) provides guidance for cutoff values for fasting glucose and random glucose. The ADA defines fasting as no caloric intake for at least 8 hours. Fasting plasma glucose results between 100 to 125 mg/dL indicate increased risk for diabetes (prediabetes).Fasting plasma glucose results greater than or equal to 126 mg/dL meet the criteria for diagnosis of diabetes. In the absence of unequivocal hyperglycemia, results should be confirmed by repeat testing. In a patient with classic symptoms of hyperglycemia or hyperglycemic crisis, random plasma glucose results greater than or equal to 200 mg/dL meet the criteria for diagnosis of diabetes.Reference: Standards of Medical Care in Diabetes 2016, English Diabetes Association. Diabetes Care. 2016.39(Suppl 1). Performed By: #### 2 4323-8 ####[facility] [id number] [place] [address] [place] Potassium [Moles/Vol] 4.0 mmol/L Normal 3.7-5.1 [facility] Comment on above: Order Comment: Speci men Type: BLOOD SPECIMENOrdering Facility: [facility] Address: [address] [place] [address] Performed By: #### 2 4323-8 ####[facility] [id number] [place] [address] [place] Protein [Mass/Vol] 7.1 g/dL Normal 6.3-8.0 [facility] Comment on above: Order Comment: Speci men Type: BLOOD SPECIMENOrdering Facility: [facility] Address: [address] [place] [address] Performed By: #### 2 4323-8 ####[facility] [id number] [place] [address] [place] Sodium [Moles/Vol] 140 mmol/L Normal 136-144 [facility] Comment on above: Order Comment: Speci men Type: BLOOD SPECIMENOrdering Facility: [facility] Address: [address] [place] [address] Performed By: #### 2 4323-8 ####[facility] [id number] [place] [address] [place] Urea nitrogen [Mass/Vol] 17 mg/dL Normal 7-21 [facility] Comment on above: Order Comment: Speci men Type: BLOOD SPECIMENOrdering Facility: [facility] Address: [address] [place] [address] Performed By: #### 2 4323-8 ####[facility] [id number] [place] [address] [place] THYROID STIMULATING HORMONEo n 02-04-2025 TSH Qn 0.905 m[IU]/L [facility] TSH Qnon 02-04-2025 Interpretation and review of laboratory results Normal [facility] TSH SerPl-aCncon 02-04-2025 TSH Qn 0.905 m[IU]/L Normal 0.270-4.200 [facility] Comment on above: Order Comment: Speci men Type: BLOOD SPECIMENOrdering Facility: [facility] Address: [address] [place] [address] Performed By: #### 3 016-3 ####[facility] LABCLIA [id number] [address] [place] CNOVon 02-03-2025 CNOV Normal [facility] MR Brain WO and W contrast I Von 02-03-2025 IMPRESSION: No pathologic enhancement to suggest intracranial metastatic disease. No evidence of leptomeningeal disease. No vasogenic edema. Perfusion CBV maps are normal. 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 TECHNIQUE: Routine brain MRI protocol without and with contrast including diffusion images. Perfusion with gadolinium. MQ: MRBWOW_2 Contrast: 16 mL Dotarem IV COMPARISON: MRI brain from October 28, 2024. RESULT: Acute Change: There is no evidence of restricted diffusion to suggest an acute infarct. Hemorrhage: No evidence of prior parenchymal hemorrhage on the susceptibility weighted images. Mass Lesion/ Mass Effect: No evidence of an intracranial mass or extra-axial fluid collection. No abnormal parenchymal or leptomeningeal enhancement is noted following contrast administration. No significant mass effect. Perfusion CBV maps are normal. Chronic Change: The white matter is within normal limits of signal intensity for age. Parenchyma: No significant volume loss for age. The brain parenchyma is otherwise within normal limits of signal intensity and morphology. Ventricles: Normal caliber and morphology. Skull Base: Hypothalamic and pituitary region are grossly normal. Craniocervical junction is normal. No significant marrow replacement process. Vasculature: Major intracranial arterial structures, and dural venous sinuses show typical flow void, suggesting patency by spin echo criteria. Other: The visualized paranasal sinuses and mastoid air cells are clear. The orbits and extracranial soft tissues are unremarkable. 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 TECHNIQUE: Routine brain MRI protocol without and with contrast including diffusion images. Perfusion with gadolinium. MQ: MRBWOW_2 Contrast: 16 mL Dotarem IV COMPARISON: MRI brain from October 28, 2024. RESULT: Acute Change: There is no evidence of restricted diffusion to suggest an acute infarct. Hemorrhage: No evidence of prior parenchymal hemorrhage on the susceptibility weighted images. Mass Lesion/ Mass Effect: No evidence of an intracranial mass or extra-axial fluid collection. No abnormal parenchymal or leptomeningeal enhancement is noted following contrast administration. No significant mass effect. Perfusion CBV maps are normal. Chronic Change: The white matter is within normal limits of signal intensity for age. Parenchyma: No significant volume loss for age. The brain parenchyma is otherwise within normal limits of signal intensity and morphology. Ventricles: Normal caliber and morphology. Skull Base: Hypothalamic and pituitary region are grossly normal. Craniocervical junction is normal. No significant marrow replacement process. Vasculature: Major intracranial arterial structures, and dural venous sinuses show typical flow void, suggesting patency by spin echo criteria. Other: The visualized paranasal sinuses and mastoid air cells are clear. The orbits and extracranial soft tissues are unremarkable. IMPRESSION IMPRESSION: No pathologic enhancement to suggest intracranial metastatic disease. No evidence of leptomeningeal disease. No vasogenic edema. Perfusion CBV maps are normal. Breakfast Cook: EVGENY Transcribe Date/Time: Feb 03 2025 9:18A Dictated by : SERGIO HANKINS MD This examination was interpreted and the report reviewed and electronically signed by: SERGIO HANKINS MD on Feb 03 2025 9:21AM EST [facility] Radiology Study observation (narrative) [facility] MR Brain WO and W contrast I VOrdered By: [facility] Provider on 02-03-2025 [facility] MRI BRAIN WO/W IVCONon 02-03 MRI BRAIN WO/W IVCON * * *Final Report* * * DATE OF EXAM: Feb 03 2025 8:48AM [facility] 0295 - MRI BRAIN WO/W IVCON / PROCEDURE REASON: C79.31-Metastasis to brain (HCC) * * * * Physician Interpretation * * * * EXAMINATION: MRI BRAIN WO/W IVCON CLINICAL HISTORY: 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 TECHNIQUE: Routine brain MRI protocol without and with contrast including diffusion images. Perfusion with gadolinium. MQ: MRBWOW_2 Contrast: 16 mL Dotarem IV COMPARISON: MRI brain from October 28, 2024. RESULT: Acute Change: There is no evidence of restricted diffusion to suggest an acute infarct. Hemorrhage: No evidence of prior parenchymal hemorrhage on the susceptibility weighted images. Mass Lesion/ Mass Effect: No evidence of an intracranial mass or extra-axial fluid collection. No abnormal parenchymal or leptomeningeal enhancement is noted following contrast administration. No significant mass effect. Perfusion CBV maps are normal. Chronic Change: The white matter is within normal limits of signal intensity for age. Parenchyma: No significant volume loss for age. The brain parenchyma is otherwise within normal limits of signal intensity and morphology. Ventricles: Normal caliber and morphology. Skull Base: Hypothalamic and pituitary region are grossly normal. Craniocervical junction is normal. No significant marrow replacement process. Vasculature: Major intracranial arterial structures, and dural venous sinuses show typical flow void, suggesting patency by spin echo criteria. Other: The visualized paranasal sinuses and mastoid air cells are clear. The orbits and extracranial soft tissues are unremarkable. IMPRESSION: No pathologic enhancement to suggest intracranial metastatic disease. No evidence of leptomeningeal disease. No vasogenic edema. Perfusion CBV maps are normal. Breakfast Cook: PSCB Transcribe Date/Time: Feb 03 2025 9:18A Dictated by : SERGIO HANKINS MD This examination was interpreted and the report reviewed and electronically signed by: SERGIO HANKINS MD on Feb 03 2025 9:21AM EST [id number] [facility] NURSING PROGon 02-03-2025 NURSING PROG HNO ID: [id number] Author: TING DAWSON RN Service: Nursing Author Type: Registered Nurse Type: Nursing Progress Note Filed: 02/03/2025 08:14 Note Text: Radiology Service Progress Note DATE OF SERVICE: February 03, 2025 TIME: 8:12 AM PATIENT WEIGHT: LBS PATIENT IDENTITY VERIFICATION COMPLETED USING TWO (2) STANDARD IDENTIFIERS: Name and Date of confirmed by patient verbally. FALL SCREENING: Has the patient had 2 falls in the last year or 1 fall with injury or currently using an Ambulatory Assistive Device (Walker, Cane, Wheelchair, Crutches, etc.)? No PATIENT GENDER DATA: Assigned female at . status: : No status: NO. ALLERGIES: Reviewed and unchanged CONTRAST ALLERGY: No EXAM: MRI - CONTRAST TYPE: GROUP II IV SITE: Ambulatory: A peripheral IV was started in the Left with a Angio cath: 22 gauge. IV SITE APPEARANCE: Clean,Dry and Intact SIGNATURE: Ting Dawson RN PATIENT NAME: Lashell Segura DATE: February 03, 2025 TIME: 8:12 AM [facility] CT CHEST WO IVCONon 02-01-[address] CHEST WO IVCON * * *Final Report* * * DATE OF EXAM: Jan 31 2025 3:43PM [facility] [place] CHEST WO IVCON / PROCEDURE REASON: C34.90-Adenocarcinoma of lung, stage 4, unspecified laterality (HCC) * * * * Physician Interpretation * * * * EXAMINATION: CHEST CT WITHOUT CONTRAST CLINICAL HISTORY: Adenocarcinoma of lung, stage IV. Technique: Spiral CT acquisition of the chest from the thoracic inlet to the upper abdomen without contrast. MQ: CTCWO_6 CT Radiation dose: Integrated Dose-length product (DLP) for this visit = 318 mGy*cm CT Dose Reduction Employed: Automated exposure control(AEC) and iterative recon Comparison: CT chest 11/04/2024-04/21/2024 RESULT: Limitations: None. Lines, tubes, and devices: None. Lung parenchyma and airways: The central airways are patent. Centrilobular emphysematous changes greatest within the apices. Narrowing of the lingular bronchus at site of prior mass although no longer measurable. Downstream posterior left upper lobe postobstructive subsegmental atelectasis and associated bronchiectasis similar to multiple prior studies although improved from 202. Multiple bilateral pulmonary nodules, for example: * 7 x 6 mm inferior right upper lobe groundglass nodule (301:104), stable. * 9 x 10 mm inferior right upper lobe groundglass nodule along the minor fissure (301:111), stable. * 19 x 18 mm anterior right lower lobe groundglass nodule (301:30), stable. * 8 x 6 mm posterior right lower lobe groundglass nodule (301:29), stable. * 12 x 8 mm right lower lobe groundglass nodule, previously 10 x 8 mm. * 8 x 5 mm posteromedial right lower lobe groundglass nodule (301:61), previously 5 x 5 mm. Pleural space: No pleural effusion. No pleural thickening. Lower neck, lymph nodes, and mediastinum: The imaged thyroid gland is normal. No lymphadenopathy in the supraclavicular, axillary, mediastinal, or hilar regions. Heart, pericardium, and thoracic vessels: The thoracic aorta and main pulmonary artery are normal in caliber. The cardiac chambers are normal in size. No coronary artery atherosclerotic calcifications are noted, although the study is not optimized for coronary assessment. Stable, trace pericardial effusion. Bones and soft tissues: Osseous degenerative changes with stable T11 vertebral body compression deformity. No suspicious osseous lesions. The chest wall is unremarkable. Upper abdomen: No acute abnormality in the imaged upper abdomen. Localizer images: No additional findings. IMPRESSION: Stable narrowing of the lingular bronchus and postobstructive atelectasis at site of mass seen on [address] without measurable mass. Stable to minimally increased size of multiple groundglass nodules. No new suspicious pulmonary nodules or thoracic lymphadenopathy. Breakfast Cook: EVGENY Transcribe Date/Time: Feb 07 2025 8:08A Dictated by : CLIFFORD CA MD This examination was interpreted and the report reviewed and electronically signed by: CLIFFORD CA MD on Feb 07 2025 9:45AM EST [id number] [facility] CBC W Auto Differential pane l (Bld)on 12-24-2024 Basophils (Bld) [#/Vol] 0.07 10*3/uL [facility] Basophils/100 WBC (Bld) 0.9 % [facility] Differential cell count method Nom (Bld) Auto [facility] Eosinophils (Bld) [#/Vol] 0.25 10*3/uL [facility] Eosinophils/100 WBC (Bld) 3.2 % [facility] Erythrocyte distribution width (RBC) [Ratio] 12.1 % 11.5 - 15.0 % [facility] Hematocrit (Bld) [Volume fraction] 41.3 % 36.0 - 46.0 % [facility] Hemoglobin (Bld) [Mass/Vol] 14.3 g/dL 11.5 - 15.5 g/dL [facility] Immature granulocytes (Bld) [#/Vol] [facility] Immature granulocytes/100 WBC (Bld) 0.3 % [facility] Interpretation and review of laboratory results Abnormal [facility] Lymphocytes (Bld) [#/Vol] 3.16 10*3/uL [facility] Lymphocytes/100 WBC (Bld) 40.7 % [facility] MCH (RBC) [Entitic mass] 33.4 pg 26.0 - 34.0 pg [facility] MCHC (RBC) [Mass/Vol] 34.6 g/dL 30.5 - 36.0 g/dL [facility] MCV (RBC) [Entitic vol] 96.5 fL 80.0 - 100.0 fL [facility] Monocytes (Bld) [#/Vol] 0.57 10*3/uL [facility] Monocytes/100 WBC (Bld) 7.3 % [facility] Neutrophils (Bld) [#/Vol] 3.69 10*3/uL [facility] Neutrophils/100 WBC (Bld) 47.6 % [facility] Nucleated RBC (Bld) [#/Vol] [facility] Nucleated RBC/100 WBC (Bld) [Ratio] 0 % /100 WBC [facility] Platelet mean volume (Bld) [Entitic vol] 8.4 fL Low 9.0 - 12.7 fL [facility] Platelets (Bld) [#/Vol] 239 10*3/uL [facility] RBC (Bld) [#/Vol] 4.28 10*6/uL 3.90 - 5.2 0 m/uL [facility] WBC (Bld) [#/Vol] 7.76 10*3/uL [facility] Basophils (Bld) [#/Vol] 0.07 10*3/uL Normal <0.11 [facility] Comment on above: Order Comment: Speci men Type: BLOOD SPECIMENOrdering Facility: [facility] Address: [address] [place] [address] Performed By: #### 5 7021-8 ####[facility] [id number] [place] [address] [place] Basophils/100 WBC (Bld) 0.9 % Normal [facility] Comment on above: Order Comment: Speci men Type: BLOOD SPECIMENOrdering Facility: [facility] Address: [address] [place] [address] Performed By: #### 5 7021-8 ####[facility] [id number] [place] [address] [place] Differential cell count method Nom (Bld) Auto Normal [facility] Comment on above: Order Comment: Speci men Type: BLOOD SPECIMENOrdering Facility: [facility] Address: [address] [place] [address] Performed By: #### 5 7021-8 ####[facility] [id number] [place] [address] [place] Eosinophils (Bld) [#/Vol] 0.25 10*3/uL Normal <0.46 [facility] Comment on above: Order Comment: Speci men Type: BLOOD SPECIMENOrdering Facility: [facility] Address: [address] [place] [address] Performed By: #### 5 7021-8 ####[facility] [id number] [place] [address] [place] Eosinophils/100 WBC (Bld) 3.2 % Normal [facility] Comment on above: Order Comment: Speci men Type: BLOOD SPECIMENOrdering Facility: [facility] Address: [address] [place] [address] Performed By: #### 5 7021-8 ####[facility] [id number] [place] [address] [place] Erythrocyte distribution width (RBC) [Ratio] 12.1 % Normal 11.5-15.0 [facility] Comment on above: Order Comment: Speci men Type: BLOOD SPECIMENOrdering Facility: [facility] Address: [address] [place] [address] Performed By: #### 5 7021-8 ####[facility] [id number] [place] [address] [place] Hematocrit (Bld) [Volume fraction] 41.3 % Normal 36.0-46.0 [facility] Comment on above: Order Comment: Speci men Type: BLOOD SPECIMENOrdering Facility: [facility] Address: [address] [place] [address] Performed By: #### 5 7021-8 ####[facility] [id number] [place] [address] [place] Hemoglobin (Bld) [Mass/Vol] 14.3 g/dL Normal 11.5-15.5 [facility] Comment on above: Order Comment: Speci men Type: BLOOD SPECIMENOrdering Facility: [facility] Address: [address] [place] [address] Performed By: #### 5 7021-8 ####[facility] [id number] [place] [address] [place] Immature granulocytes (Bld) [#/Vol] 10*3/uL Normal <0.10 [facility] Comment on above: Order Comment: Speci men Type: BLOOD SPECIMENOrdering Facility: [facility] Address: [address] [place] [address] Performed By: #### 5 7021-8 ####[facility] [id number] [place] [address] [place] Immature granulocytes/100 WBC (Bld) 0.3 % Normal [facility] Comment on above: Order Comment: Speci men Type: BLOOD SPECIMENOrdering Facility: [facility] Address: [address] [place] [address] Performed By: #### 5 7021-8 ####[facility] [place] [id number] [place] [address] [place] Lymphocytes (Bld) [#/Vol] 3.16 10*3/uL Normal 1.00-4.00 [facility] Comment on above: Order Comment: Speci men Type: BLOOD SPECIMENOrdering Facility: [facility] Address: [address] [place] [address] Performed By: #### 5 7021-8 ####[facility] [place] [id number] [place] [address] [place] Lymphocytes/100 WBC (Bld) 40.7 % Normal [facility] Comment on above: Order Comment: Speci men Type: BLOOD SPECIMENOrdering Facility: [facility] Address: [address] [place] [address] Performed By: #### 5 7021-8 ####[facility] [id number] [place] [address] [place] MCH (RBC) [Entitic mass] 33.4 pg Normal 26.0-34.0 [facility] Comment on above: Order Comment: Speci men Type: BLOOD SPECIMENOrdering Facility: [facility] Address: [address] [place] [address] Performed By: #### 5 7021-8 ####[facility] [id number] [place] [address] [place] MCHC (RBC) [Mass/Vol] 34.6 g/dL Normal 30.5-36.0 [facility] Comment on above: Order Comment: Speci men Type: BLOOD SPECIMENOrdering Facility: [facility] Address: [address] [place] [address] Performed By: #### 5 7021-8 ####[facility] [id number] [place] [address] [place] MCV (RBC) [Entitic vol] 96.5 fL Normal 80.0-100.0 [facility] Comment on above: Order Comment: Speci men Type: BLOOD SPECIMENOrdering Facility: [facility] Address: [address] [place] [address] Performed By: #### 5 7021-8 ####[facility] [place] [id number] [place] [address] [place] Monocytes (Bld) [#/Vol] 0.57 10*3/uL Normal <0.87 [facility] Comment on above: Order Comment: Speci men Type: BLOOD SPECIMENOrdering Facility: [facility] Address: [address] [place] [address] Performed By: #### 5 7021-8 ####[facility] [place] [id number] [place] [address] [place] Monocytes/100 WBC (Bld) 7.3 % Normal [facility] Comment on above: Order Comment: Speci men Type: BLOOD SPECIMENOrdering Facility: [facility] Address: [address] [place] [address] Performed By: #### 5 7021-8 ####[facility] [id number] [place] [address] [place] Neutrophils (Bld) [#/Vol] 3.69 10*3/uL Normal 1.45-7.50 [facility] Comment on above: Order Comment: Speci men Type: BLOOD SPECIMENOrdering Facility: [facility] Address: [address] [place] [address] Performed By: #### 5 7021-8 ####[facility] [id number] [place] [address] [place] Neutrophils/100 WBC (Bld) 47.6 % Normal [facility] Comment on above: Order Comment: Speci men Type: BLOOD SPECIMENOrdering Facility: [facility] Address: [address] [place] [address] Performed By: #### 5 7021-8 ####[facility] [id number] [place] [address] [place] Nucleated RBC (Bld) [#/Vol] 10*3/uL Normal <0.01 [facility] Comment on above: Order Comment: Speci men Type: BLOOD SPECIMENOrdering Facility: [facility] Address: [address] [place] [address] Performed By: #### 5 7021-8 ####[facility] [place] [id number] [place] [address] [place] Nucleated RBC/100 WBC (Bld) [Ratio] 0.0 /100 WBC Normal [facility] Comment on above: Order Comment: Speci men Type: BLOOD SPECIMENOrdering Facility: [facility] Address: [address] [place] [address] Performed By: #### 5 7021-8 ####[facility] [id number] [place] [address] [place] Platelet mean volume (Bld) [Entitic vol] 8.4 fL Low 9.0-12.7 [facility] Comment on above: Order Comment: Speci men Type: BLOOD SPECIMENOrdering Facility: [facility] Address: [address] [place] [address] Performed By: #### 5 7021-8 ####[facility] [id number] [place] [address] [place] Platelets (Bld) [#/Vol] 239 10*3/uL Normal 150-400 [facility] Comment on above: Order Comment: Speci men Type: BLOOD SPECIMENOrdering Facility: [facility] Address: [address] [place] [address] Performed By: #### 5 7021-8 ####[facility] [id number] [place] [address] [place] RBC (Bld) [#/Vol] 4.28 10*6/uL Normal 3.90-5.20 [facility] Comment on above: Order Comment: Speci men Type: BLOOD SPECIMENOrdering Facility: [facility] Address: [address] [place] [address] Performed By: #### 5 7021-8 ####[facility] [id number] [place] [address] [place] WBC (Bld) [#/Vol] 7.76 10*3/uL Normal 3.70-11.00 [facility] Comment on above: Order Comment: Speci men Type: BLOOD SPECIMENOrdering Facility: [facility] Address: [address] [place] [address] Performed By: #### 5 7021-8 ####[facility] [id number] [place] [address] [place] CNOVSPon 12-24-2024 CNOVSP Normal [facility] Comprehensive metabolic 2000 panelon 12-24-2024 Albumin [Mass/Vol] 4.4 g/dL 3.9 - 4.9 g/dL [facility] ALP [Catalytic activity/Vol] 121 U/L 34 - 123 U/L [facility] ALT [Catalytic activity/Vol] 23 U/L 7 - 38 U/L [facility] Anion gap [Moles/Vol] 11 mmol/L 8 - 15 mmol/L [facility] AST [Catalytic activity/Vol] 29 U/L 13 - 35 U/L [facility] Bilirubin [Mass/Vol] mg/dL Low 0.2 - 1 .3 mg/dL [facility] Calcium [Mass/Vol] 9.4 mg/dL 8.5 - 10. 2 mg/dL [facility] Chloride [Moles/Vol] 104 mmol/L 98 - 10 7 mmol/L [facility] CO2 [Moles/Vol] 24 mmol/L 22 - 30 mmol/L [facility] Creatinine [Mass/Vol] 0.84 mg/dL 0.58 - 0.96 mg/dL [facility] GFR/1.73 sq M.predicted among non-blacks MDRD (S/P/Bld) [Vol rate/Area] 82 mL/min/{1.73_m2} - PINF [facility] Comment on above: Estimated Glomerular Filtration Rate (eGFR) is calculated using the 2020 CKD-EPI creatinine equation. This equation utilizes serum creatinine, sex, and age as parameters. The creatinine assay has traceable calibration to isotope dilution-mass spectrometry. Refer to KDIGO guidelines for clinical interpretation. In patients with unstable renal function, e.g. those with acute kidney injury, the eGFR may not accurately reflect actual GFR. Glucose [Mass/Vol] 92 mg/dL 74 - 99 mg/dL [facility] Comment on above: The English Diabete s Association (ADA) provides guidance for cutoff values for fasting glucose and random glucose. The ADA defines fasting as no caloric intake for at least 8 hours. Fasting plasma glucose results between 100 to 125 mg/dL indicate increased risk for diabetes (prediabetes). Fasting plasma glucose results greater than or equal to 126 mg/dL meet the criteria for diagnosis of diabetes. In the absence of unequivocal hyperglycemia, results should be confirmed by repeat testing. In a patient with classic symptoms of hyperglycemia or hyperglycemic crisis, random plasma glucose results greater than or equal to 200 mg/dL meet the criteria for diagnosis of diabetes. Reference: Standards of Medical Care in Diabetes 2016, English Diabetes Association. Diabetes Care. 2016.39(Suppl 1). Interpretation and review of laboratory results Abnormal [facility] Potassium [Moles/Vol] 4.1 mmol/L 3.7 - 5.1 mmol/L [facility] Protein [Mass/Vol] 7.3 g/dL 6.3 - 8.0 g/dL [facility] Sodium [Moles/Vol] 139 mmol/L 136 - 144 mmol/L [facility] Urea nitrogen [Mass/Vol] 20 mg/dL 7 - 21 mg/dL [facility] Albumin [Mass/Vol] 4.4 g/dL Normal 3.9-4.9 [facility] Comment on above: Order Comment: Speci men Type: BLOOD SPECIMENOrdering Facility: [facility] Address: [address] [place] [address] Performed By: #### 2 4323-8 ####[facility] [id number] [place] [address] [place] ALP [Catalytic activity/Vol] 121 U/L Normal 34-123 [facility] Comment on above: Order Comment: Speci men Type: BLOOD SPECIMENOrdering Facility: [facility] Address: [address] [place] [address] Performed By: #### 2 4323-8 ####[facility] [place] [id number] [place] [address] [place] ALT [Catalytic activity/Vol] 23 U/L Normal 7-38 [facility] Comment on above: Order Comment: Speci men Type: BLOOD SPECIMENOrdering Facility: [facility] Address: [address] [place] [address] Performed By: #### 2 4323-8 ####[facility] [id number] [place] [address] [place] Anion gap [Moles/Vol] 11 mmol/L Normal 8-15 [facility] Comment on above: Order Comment: Speci men Type: BLOOD SPECIMENOrdering Facility: [facility] Address: [address] [place] [address] Performed By: #### 2 4323-8 ####[facility] [id number] [place] [address] [place] AST [Catalytic activity/Vol] 29 U/L Normal 13-35 [facility] Comment on above: Order Comment: Speci men Type: BLOOD SPECIMENOrdering Facility: [facility] Address: [address] [place] [address] Performed By: #### 2 4323-8 ####[facility] [id number] [place] [address] [place] Bilirubin [Mass/Vol] mg/dL Low 0.2-1.3 [facility] Comment on above: Order Comment: Speci men Type: BLOOD SPECIMENOrdering Facility: [facility] Address: [address] [place] [address] Performed By: #### 2 4323-8 ####[facility] [id number] [place] [address] [place] Calcium [Mass/Vol] 9.4 mg/dL Normal 8.5-10.2 [facility] Comment on above: Order Comment: Speci men Type: BLOOD SPECIMENOrdering Facility: [facility] Address: [address] [place] [address] Performed By: #### 2 4323-8 ####[facility] [place] [id number] [place] [address] [place] Chloride [Moles/Vol] 104 mmol/L Normal 98-107 [facility] Comment on above: Order Comment: Speci men Type: BLOOD SPECIMENOrdering Facility: [facility] Address: [address] [place] [address] Performed By: #### 2 4323-8 ####[facility] [id number] [place] [address] [place] CO2 [Moles/Vol] 24 mmol/L Normal 22-30 [facility] Comment on above: Order Comment: Speci men Type: BLOOD SPECIMENOrdering Facility: [facility] Address: [address] [place] [address] Performed By: #### 2 4323-8 ####[facility] [id number] [place] [address] [place] Creatinine [Mass/Vol] 0.84 mg/dL Normal 0.58-0.96 [facility] Comment on above: Order Comment: Eris staton Type: BLOOD SPECIMENOrdering Facility: [facility] Address: [address] [place] [address] Performed By: #### 2 4323-8 ####[facility] [id number] [place] [address] [place] Creatinine and Glomerular filtration rate.predicted panel (S/P/Bld) 82 mL/min/1.73m??? Normal >=60 [facility] Comment on above: Order Comment: Eris staton Type: BLOOD SPECIMENOrdering Facility: [facility] Address: [address] [place] [address] Result Comment: Jina mated Glomerular Filtration Rate (eGFR) is calculated using the 2020 CKD-EPI creatinine equation. This equation utilizes serum creatinine, sex, and age as parameters. The creatinine assay has traceable calibration to isotope dilution-mass spectrometry. Refer to KDIGO guidelines for clinical interpretation. In patients with unstable renal function, e.g. those with acute kidney injury, the eGFR may not accurately reflect actual GFR. Performed By: #### 2 4323-8 ####[facility] [id number] [place] [address] [place] Glucose [Mass/Vol] 92 mg/dL Normal 74-99 [facility] Comment on above: Order Comment: Eris staton Type: BLOOD SPECIMENOrdering Facility: [facility] Address: [address] [place] [address] Result Comment: The [place] Diabetes Association (ADA) provides guidance for cutoff values for fasting glucose and random glucose. The ADA defines fasting as no caloric intake for at least 8 hours. Fasting plasma glucose results between 100 to 125 mg/dL indicate increased risk for diabetes (prediabetes).Fasting plasma glucose results greater than or equal to 126 mg/dL meet the criteria for diagnosis of diabetes. In the absence of unequivocal hyperglycemia, results should be confirmed by repeat testing. In a patient with classic symptoms of hyperglycemia or hyperglycemic crisis, random plasma glucose results greater than or equal to 200 mg/dL meet the criteria for diagnosis of diabetes.Reference: Standards of Medical Care in Diabetes 2016, English Diabetes Association. Diabetes Care. 2016.39(Suppl 1). Performed By: #### 2 4323-8 ####[facility] [id number] [place] [address] [place] Potassium [Moles/Vol] 4.1 mmol/L Normal 3.7-5.1 [facility] Comment on above: Order Comment: Speci men Type: BLOOD SPECIMENOrdering Facility: [facility] Address: [address] [place] [address] Performed By: #### 2 4323-8 ####[facility] [id number] [place] [address] [place] Protein [Mass/Vol] 7.3 g/dL Normal 6.3-8.0 [facility] Comment on above: Order Comment: Speci men Type: BLOOD SPECIMENOrdering Facility: [facility] Address: [address] [place] [address] Performed By: #### 2 4323-8 ####[facility] [place] [id number] [place] [address] [place] Sodium [Moles/Vol] 139 mmol/L Normal 136-144 [facility] Comment on above: Order Comment: Speci men Type: BLOOD SPECIMENOrdering Facility: [facility] Address: [address] [place] [address] Performed By: #### 2 4323-8 ####[facility] [id number] [place] [address] [place] Urea nitrogen [Mass/Vol] 20 mg/dL Normal 7-21 [facility] Comment on above: Order Comment: Speci men Type: BLOOD SPECIMENOrdering Facility: [facility] Address: [address] [place] [address] Performed By: #### 2 4323-8 ####[facility] [id number] [address] [place] Free T4 [Mass/Vol]on Interpretation and review of laboratory results Abnormal [facility] No Panel Informationon 12-24 [facility] T4 FREE/FREE THYROXINEon Free T4 [Mass/Vol] 0.8 ng/dL Low 0.9 - 1.7 ng/dL [facility] T4 Free SerPl-mCncon Free T4 [Mass/Vol] 0.8 ng/dL Low 0.9-1.7 [facility] Comment on above: Order Comment: Eris staton Type: BLOOD SPECIMENOrdering Facility: [facility] Address: [address] [place] [address] Performed By: #### 3 016-3, 3024-7 ####[facility]CLIA [id number] [address] THYROID STIMULATING HORMONEo n 12-24-2024 TSH Qn 1.8 m[IU]/L [facility] TSH Qnon 12-24-2024 Interpretation and review of laboratory results Normal [facility] TSH SerPl-aCncon 12-24-2024 TSH Qn 1.800 m[IU]/L Normal 0.270-4.200 [facility] Comment on above: Order Comment: Eris staton Type: BLOOD SPECIMENOrdering Facility: [facility] Address: [address] [place] [address] Performed By: #### 3 016-3, 3024-7 ####[facility] LABCLIA [id number] [address] [place] CNOVon 11-24-2024 CNOV Office Visit ([facility] ) LASHELL SEGURA ([id number]) 1970 F T Date Time Provider Department 11/24/24 10:00 AM MARK MCDONNELL During your visit today, we recorded the following information about you: Pulse Respiration Blood pressure Weight 90/minute 16/minute 139/96 79.4 kg Height 1.6 m Mark Mcdonnell MD 11/24/2024 10:26 AM Signed Summary of the things we discussed today: - Continue taking Vimpat 150 mg twice daily as prescribed. - Refill Vimpat prescription; a 6-month supply has been sent to your pharmacy. - Discuss with your oncologist, Dr. Jiang, the possibility of alternative medications to Wellbutrin due to its potential to worsen seizures. - Next follow-up appointment in 6 months. Please call my office if you have more seizures or with any seizure related concerns. Seizure precautions - No driving in the [facility] until seizure free for 6 months. Please check with local state authorities for state specific driving regulations. - No operating heavy machines - No swimming without supervision or bathing in a bathtub due to risk of drowning in the event of a seizure. Patient may shower. - Avoid unsafe heights, including ladders, due to risk of fall-related injury in the event of a seizure. - Seizure precipitating factors discussed including not taking seizure medications as prescribed, stress, excessive caffeine intake, energy drinks, alcohol, sleep deprivation or any identifiable seizure precipitating factor. Mark Mcdonnell MD Associate Staff, Epilepsy [facility] November 24, 2024 Office phone: [phone] Mark Mcdonnell MD 11/24/2024 10:33 AM Signed [facility] Patient Name: Lashell Segura Date of : 1970 ESTABLISHED EPILEPSY CLINIC NOTE 11/24/2024 10:00 AM Reason for Visit: Follow Up and Epilepsy Clinical Summary: Ms. Segura is a 53 year old left-handed Write, eats, throws left handed. Strong family h/o left handedness female seen in [facility]. At today's visit, the patient is accompanied by: Daughter EPILEPSY CLASSIFICATION Left Temporal Lobe Epilepsy Seizures: 1. Aphasic Seizure -> Right Versive Seizure -> Generalized Tonic-Clonic Seizure 2. Subclinical EEG Seizure (no clinical signs) Etiology: Tumor (Tumor - other) Metastatic brain tumor-lung NSCLC primary HISTORY OF PRESENT ILLNESS Handedness: left-handed Write, eats, throws left handed. Strong family h/o left handedness Age of onset: Seizure History and Evolution Symptoms started 07/19/2023. Per she had nonsensical speech, difficulty getting words out. She was confused. Initial concern was for stroke. She was taken to [place] ED where as per stroke code CT CTA was done which showed a left temporal mass lesion. While in the ED patient had a witnessed seizure-described as eyes deviated to the right, head turned to the right, generalized tonic-clonic seizure. She was given Ativan and loaded with Keppra. She was transferred [facility] for further evaluation of brain mass. MRI brain confirmed left temporal lesion suspected to be metastatic associated with edema. CT chest abdominal pelvis showed compressed nodule and lung mass. She underwent bronchoscopy on 07/22/2023 with preliminary results showing non-small cell lung carcinoma. She was started on continuous EEG monitoring which showed PLEDs in the left hemisphere as well as NCS seizures from the left frontotemporal region. Keppra was increased to 1500 mg BID She underwent gamma knife radiation surgery on 07/28/2023 followed by steroid taper. She follows with oncology team (Dr. Joleen Jiang). She was started on chemotherapy with Pembrolizumab, Pemetrexed, Carboplatin. Currently on Pemetrexed/Pembrolizum ab Most recent MRI in December 2023 shows near total resolution of T2 hyperintensity in the Left temporal region. Interval Seizure History She is currently taking Vimpat 150 mg twice daily and does not endorse any side effects such as dizziness, unsteady gait, or double vision. She reports that the medication is working well. She is also taking Wellbutrin 150 mg daily, prescribed by her oncologist, Dr. Jiang, for smoking cessation. This medication was started approximately 4-6 months ago. She has not experienced any worsening of seizures since starting Wellbutrin. Total # of Current Anti-seizure Medications: Side Effects to Current Anti-seizure Medications: Seizure Frequency at First Visit: Longest Seizure-free Interval: Number of seizure types: 1 Hx of generalized tonic-clonic seizures: Yes Seizure-related driving accidents: No Driving: No Lives Alone: No CURRENT OUTPATIENT ANTISEIZURE MEDICATIONS (as of the start of the encounter) lacosamide (VIMPAT) 150 mg tab Take 1 tablet by mouth t (more content not included)... Normal [facility] CBC W Auto Differential pane l (Bld)on 11-08-2024 Basophils (Bld) [#/Vol] 0.05 10*3/uL [facility] Basophils/100 WBC (Bld) 0.6 % [facility] Differential cell count method Nom (Bld) Auto [facility] Eosinophils (Bld) [#/Vol] 0.12 10*3/uL [facility] Eosinophils/100 WBC (Bld) 1.4 % [facility] Erythrocyte distribution width (RBC) [Ratio] 14.9 % 11.5 - 15.0 % [facility] Hematocrit (Bld) [Volume fraction] 38.9 % 36.0 - 46.0 % [facility] Hemoglobin (Bld) [Mass/Vol] 13.3 g/dL 11.5 - 15.5 g/dL [facility] Immature granulocytes (Bld) [#/Vol] 0.04 10*3/uL [facility] Immature granulocytes/100 WBC (Bld) 0.5 % [facility] Interpretation and review of laboratory results Abnormal [facility] Lymphocytes (Bld) [#/Vol] 3.5 10*3/uL [facility] Lymphocytes/100 WBC (Bld) 40.3 % [facility] MCH (RBC) [Entitic mass] 34.7 pg High 26.0 - 34.0 pg [facility] MCHC (RBC) [Mass/Vol] 34.2 g/dL 30.5 - 36.0 g/dL [facility] MCV (RBC) [Entitic vol] 101.6 fL High 80.0 - 100.0 fL [facility] Monocytes (Bld) [#/Vol] 0.65 10*3/uL [facility] Monocytes/100 WBC (Bld) 7.5 % [facility] Neutrophils (Bld) [#/Vol] 4.32 10*3/uL [facility] Neutrophils/100 WBC (Bld) 49.7 % [facility] Nucleated RBC (Bld) [#/Vol] [facility] Nucleated RBC/100 WBC (Bld) [Ratio] 0 % /100 WBC [facility] Platelet mean volume (Bld) [Entitic vol] 8.1 fL Low 9.0 - 12.7 fL [facility] [facility] Platelets (Bld) [#/Vol] 351 10*3/uL [facility] RBC (Bld) [#/Vol] 3.83 10*6/uL Low 3.90 - 5.2 0 m/uL [facility] WBC (Bld) [#/Vol] 8.68 10*3/uL [facility] Basophils (Bld) [#/Vol] 0.05 10*3/uL Normal <0.11 [facility] Comment on above: Order Comment: Speci men Type: BLOOD SPECIMENOrdering Facility: [facility] Address: [address] [place] [address] Performed By: #### 5 7021-8 ####[facility] [id number] [place] [address] [place] Basophils/100 WBC (Bld) 0.6 % Normal [facility] Comment on above: Order Comment: Speci men Type: BLOOD SPECIMENOrdering Facility: [facility] Address: [address] [place] [address] Performed By: #### 5 7021-8 ####[facility] [id number] [place] [address] [place] Differential cell count method Nom (Bld) Auto Normal [facility] Comment on above: Order Comment: Speci men Type: BLOOD SPECIMENOrdering Facility: [facility] Address: [address] [place] [address] Performed By: #### 5 7021-8 ####[facility] [id number] [place] [address] [place] Eosinophils (Bld) [#/Vol] 0.12 10*3/uL Normal <0.46 [facility] Comment on above: Order Comment: Speci men Type: BLOOD SPECIMENOrdering Facility: [facility] Address: [address] [place] [address] Performed By: #### 5 7021-8 ####[facility] [id number] [place] [address] [place] Eosinophils/100 WBC (Bld) 1.4 % Normal [facility] Comment on above: Order Comment: Speci men Type: BLOOD SPECIMENOrdering Facility: [facility] Address: [address] [place] [address] Performed By: #### 5 7021-8 ####[facility] [id number] [place] [address] [place] Erythrocyte distribution width (RBC) [Ratio] 14.9 % Normal 11.5-15.0 [facility] Comment on above: Order Comment: Speci men Type: BLOOD SPECIMENOrdering Facility: [facility] Address: [address] [place] [address] Performed By: #### 5 7021-8 ####[facility] [id number] [place] [address] [place] Hematocrit (Bld) [Volume fraction] 38.9 % Normal 36.0-46.0 [facility] Comment on above: Order Comment: Speci men Type: BLOOD SPECIMENOrdering Facility: [facility] Address: [address] [place] [address] Performed By: #### 5 7021-8 ####[facility] [id number] [place] [address] [place] Hemoglobin (Bld) [Mass/Vol] 13.3 g/dL Normal 11.5-15.5 [facility] Comment on above: Order Comment: Speci men Type: BLOOD SPECIMENOrdering Facility: [facility] Address: [address] [place] [address] Performed By: #### 5 7021-8 ####[facility] [id number] [place] [address] [place] Immature granulocytes (Bld) [#/Vol] 0.04 10*3/uL Normal <0.10 [facility] Comment on above: Order Comment: Speci men Type: BLOOD SPECIMENOrdering Facility: [facility] Address: [address] [place] [address] Performed By: #### 5 7021-8 ####[facility] [id number] [place] [address] [place] Immature granulocytes/100 WBC (Bld) 0.5 % Normal [facility] Comment on above: Order Comment: Speci men Type: BLOOD SPECIMENOrdering Facility: [facility] Address: [address] [place] [address] Performed By: #### 5 7021-8 ####[facility] [id number] [place] [address] [place] Lymphocytes (Bld) [#/Vol] 3.50 10*3/uL Normal 1.00-4.00 [facility] Comment on above: Order Comment: Speci men Type: BLOOD SPECIMENOrdering Facility: [facility] Address: [address] [place] [address] Performed By: #### 5 7021-8 ####[facility] [id number] [place] [address] [place] Lymphocytes/100 WBC (Bld) 40.3 % Normal [facility] Comment on above: Order Comment: Speci men Type: BLOOD SPECIMENOrdering Facility: [facility] Address: [address] [place] [address] Performed By: #### 5 7021-8 ####[facility] [id number] [place] [address] [place] MCH (RBC) [Entitic mass] 34.7 pg High 26.0-34.0 [facility] Comment on above: Order Comment: Speci men Type: BLOOD SPECIMENOrdering Facility: [facility] Address: [address] [place] [address] Performed By: #### 5 7021-8 ####[facility] [id number] [place] [address] [place] MCHC (RBC) [Mass/Vol] 34.2 g/dL Normal 30.5-36.0 [facility] Comment on above: Order Comment: Speci men Type: BLOOD SPECIMENOrdering Facility: [facility] Address: [address] [place] [address] Performed By: #### 5 7021-8 ####[facility] [id number] [place] [address] [place] MCV (RBC) [Entitic vol] 101.6 fL High 80.0-100.0 [facility] Comment on above: Order Comment: Speci men Type: BLOOD SPECIMENOrdering Facility: [facility] Address: [address] [place] [address] Performed By: #### 5 7021-8 ####[facility] [id number] [place] [address] [place] Monocytes (Bld) [#/Vol] 0.65 10*3/uL Normal <0.87 [facility] Comment on above: Order Comment: Speci men Type: BLOOD SPECIMENOrdering Facility: [facility] Address: [address] [place] [address] Performed By: #### 5 7021-8 ####[facility] [id number] [place] [address] [place] Monocytes/100 WBC (Bld) 7.5 % Normal [facility] Comment on above: Order Comment: Speci men Type: BLOOD SPECIMENOrdering Facility: [facility] Address: [address] [place] [address] Performed By: #### 5 7021-8 ####[facility] [id number] [id number] [address] [place] Neutrophils (Bld) [#/Vol] 4.32 10*3/uL Normal 1.45-7.50 [facility] Comment on above: Order Comment: Speci men Type: BLOOD SPECIMENOrdering Facility: [facility] Address: [address] [place] [address] Performed By: #### 5 7021-8 ####[facility] [id number] [place] [address] [place] Neutrophils/100 WBC (Bld) 49.7 % Normal [facility] Comment on above: Order Comment: Speci men Type: BLOOD SPECIMENOrdering Facility: [facility] Address: [address] [place] [address] Performed By: #### 5 7021-8 ####[facility] [id number] [place] [address] [place] Nucleated RBC (Bld) [#/Vol] 10*3/uL Normal <0.01 [facility] Comment on above: Order Comment: Speci men Type: BLOOD SPECIMENOrdering Facility: [facility] Address: [address] [place] [address] Performed By: #### 5 7021-8 ####[facility] [id number] [place] [address] [place] Nucleated RBC/100 WBC (Bld) [Ratio] 0.0 /100 WBC Normal [facility] Comment on above: Order Comment: Speci men Type: BLOOD SPECIMENOrdering Facility: [facility] Address: [address] [place] [address] Performed By: #### 5 7021-8 ####[facility] [id number] [place] [address] [place] Platelet mean volume (Bld) [Entitic vol] 8.1 fL Low 9.0-12.7 [facility] Comment on above: Order Comment: Speci men Type: BLOOD SPECIMENOrdering Facility: [facility] Address: [address] [place] [address] Performed By: #### 5 7021-8 ####[facility] [id number] [place] [address] [place] Platelets (Bld) [#/Vol] 351 10*3/uL Normal 150-400 [facility] Comment on above: Order Comment: Speci men Type: BLOOD SPECIMENOrdering Facility: [facility] Address: [address] [place] [address] Performed By: #### 5 7021-8 ####[facility] [id number] [place] [address] [place] RBC (Bld) [#/Vol] 3.83 10*6/uL Low 3.90-5.20 [facility] Comment on above: Order Comment: Speci men Type: BLOOD SPECIMENOrdering Facility: [facility] Address: [address] [place] [address] Performed By: #### 5 7021-8 ####[facility] [id number] [place] [address] [place] WBC (Bld) [#/Vol] 8.68 10*3/uL Normal 3.70-11.00 [facility] Comment on above: Order Comment: Speci men Type: BLOOD SPECIMENOrdering Facility: [facility] Address: [address] [place] [address] Performed By: #### 5 7021-8 ####[facility] [id number] [place] [address] [place] CNOVSPon 11-08-2024 CNOVSP Normal [facility] Comprehensive metabolic 2000 panelon 11-08-2024 Albumin [Mass/Vol] 4.3 g/dL 3.9 - 4.9 g/dL [facility] ALP [Catalytic activity/Vol] 127 U/L High 34 - 123 U/L [facility] ALT [Catalytic activity/Vol] 30 U/L 7 - 38 U/L [facility] Anion gap [Moles/Vol] 13 mmol/L 8 - 15 mmol/L [facility] AST [Catalytic activity/Vol] 32 U/L 13 - 35 U/L [facility] Bilirubin [Mass/Vol] 0.3 mg/dL 0.2 - 1 .3 mg/dL [facility] Calcium [Mass/Vol] 9.9 mg/dL 8.5 - 10. 2 mg/dL [facility] Chloride [Moles/Vol] 106 mmol/L 98 - 10 7 mmol/L [facility] CO2 [Moles/Vol] 23 mmol/L 22 - 30 mmol/L [facility] Creatinine [Mass/Vol] 1.01 mg/dL High 0.58 - 0.96 mg/dL [facility] GFR/1.73 sq M.predicted among non-blacks MDRD (S/P/Bld) [Vol rate/Area] 65 mL/min/{1.73_m2} - PINF [facility] Comment on above: Estimated Glomerular Filtration Rate (eGFR) is calculated using the 2020 CKD-EPI creatinine equation. This equation utilizes serum creatinine, sex, and age as parameters. The creatinine assay has traceable calibration to isotope dilution-mass spectrometry. Refer to KDIGO guidelines for clinical interpretation. In patients with unstable renal function, e.g. those with acute kidney injury, the eGFR may not accurately reflect actual GFR. Glucose [Mass/Vol] 89 mg/dL 74 - 99 mg/dL [facility] Comment on above: The [place] Diabete s Association (ADA) provides guidance for cutoff values for fasting glucose and random glucose. The ADA defines fasting as no caloric intake for at least 8 hours. Fasting plasma glucose results between 100 to 125 mg/dL indicate increased risk for diabetes (prediabetes). Fasting plasma glucose results greater than or equal to 126 mg/dL meet the criteria for diagnosis of diabetes. In the absence of unequivocal hyperglycemia, results should be confirmed by repeat testing. In a patient with classic symptoms of hyperglycemia or hyperglycemic crisis, random plasma glucose results greater than or equal to 200 mg/dL meet the criteria for diagnosis of diabetes. Reference: Standards of Medical Care in Diabetes 2016, [employer] Diabetes Association. Diabetes Care. 2016.39(Suppl 1). Interpretation and review of laboratory results Abnormal [facility] Potassium [Moles/Vol] 4.1 mmol/L 3.7 - 5.1 mmol/L [facility] Protein [Mass/Vol] 7.4 g/dL 6.3 - 8.0 g/dL [facility] Sodium [Moles/Vol] 142 mmol/L 136 - 144 mmol/L [facility] Urea nitrogen [Mass/Vol] 15 mg/dL 7 - 21 mg/dL [facility] Albumin [Mass/Vol] 4.3 g/dL Normal 3.9-4.9 [facility] Comment on above: Order Comment: Speci men Type: BLOOD SPECIMENOrdering Facility: [facility] Address: [address] [place] [address] Performed By: #### 2 4323-8 ####[facility] [id number] [place] [address] [place] ALP [Catalytic activity/Vol] 127 U/L High 34-123 [facility] Comment on above: Order Comment: Speci men Type: BLOOD SPECIMENOrdering Facility: [facility] Address: [address] [place] [address] Performed By: #### 2 4323-8 ####[facility] [id number] [place] [address] [place] ALT [Catalytic activity/Vol] 30 U/L Normal 7-38 [facility] Comment on above: Order Comment: Speci men Type: BLOOD SPECIMENOrdering Facility: [facility] Address: [address] [place] [address] Performed By: #### 2 4323-8 ####[facility] [id number] [place] [address] [place] Anion gap [Moles/Vol] 13 mmol/L Normal 8-15 [facility] Comment on above: Order Comment: Speci men Type: BLOOD SPECIMENOrdering Facility: [facility] Address: [address] [place] [address] Performed By: #### 2 4323-8 ####[facility] [id number] [place] [address] [place] AST [Catalytic activity/Vol] 32 U/L Normal 13-35 [facility] Comment on above: Order Comment: Speci men Type: BLOOD SPECIMENOrdering Facility: [facility] Address: [address] [place] [address] Performed By: #### 2 4323-8 ####[facility] [id number] [place] [address] [place] Bilirubin [Mass/Vol] 0.3 mg/dL Normal 0.2-1.3 [facility] Comment on above: Order Comment: Speci men Type: BLOOD SPECIMENOrdering Facility: [facility] Address: [address] [place] [address] Performed By: #### 2 4323-8 ####[facility] [id number] [place] [address] [place] Calcium [Mass/Vol] 9.9 mg/dL Normal 8.5-10.2 [facility] Comment on above: Order Comment: Speci men Type: BLOOD SPECIMENOrdering Facility: [facility] Address: [address] [place] [address] Performed By: #### 2 4323-8 ####[facility] [id number] [place] [address] [place] Chloride [Moles/Vol] 106 mmol/L Normal 98-107 [facility] Comment on above: Order Comment: Speci men Type: BLOOD SPECIMENOrdering Facility: [facility] Address: [address] [place] [address] Performed By: #### 2 4323-8 ####[facility] [id number] [place] [address] [place] CO2 [Moles/Vol] 23 mmol/L Normal 22-30 [facility] Comment on above: Order Comment: Speci men Type: BLOOD SPECIMENOrdering Facility: [facility] Address: [address] [place] [address] Performed By: #### 2 4323-8 ####[facility] [id number] [address] [place] [facility] Creatinine [Mass/Vol] 1.01 mg/dL High 0.58-0.96 [facility] Comment on above: Order Comment: Speci men Type: BLOOD SPECIMENOrdering Facility: [facility] Address: [address] [place] [address] Performed By: #### 2 4323-8 ####[facility] [id number] [address] [place] Creatinine and Glomerular filtration rate.predicted panel (S/P/Bld) 65 mL/min/1.73m??? Normal >=60 [facility] Comment on above: Order Comment: Eris men Type: BLOOD SPECIMENOrdering Facility: [facility] Address: [address] [place] [address] Result Comment: Jina mated Glomerular Filtration Rate (eGFR) is calculated using the 2020 CKD-EPI creatinine equation. This equation utilizes serum creatinine, sex, and age as parameters. The creatinine assay has traceable calibration to isotope dilution-mass spectrometry. Refer to KDIGO guidelines for clinical interpretation. In patients with unstable renal function, e.g. those with acute kidney injury, the eGFR may not accurately reflect actual GFR. Performed By: #### 2 4323-8 ####[facility] [id number] [place] [address] [place] Glucose [Mass/Vol] 89 mg/dL Normal 74-99 [facility] Comment on above: Order Comment: Pranavi men Type: BLOOD SPECIMENOrdering Facility: [facility] Address: [address] [place] [address] Result Comment: The [place] Diabetes Association (ADA) provides guidance for cutoff values for fasting glucose and random glucose. The ADA defines fasting as no caloric intake for at least 8 hours. Fasting plasma glucose results between 100 to 125 mg/dL indicate increased risk for diabetes (prediabetes).Fasting plasma glucose results greater than or equal to 126 mg/dL meet the criteria for diagnosis of diabetes. In the absence of unequivocal hyperglycemia, results should be confirmed by repeat testing. In a patient with classic symptoms of hyperglycemia or hyperglycemic crisis, random plasma glucose results greater than or equal to 200 mg/dL meet the criteria for diagnosis of diabetes.Reference: Standards of Medical Care in Diabetes 2016, English Diabetes Association. Diabetes Care. 2016.39(Suppl 1). Performed By: #### 2 4323-8 ####[facility] [id number] [place] [address] [place] Potassium [Moles/Vol] 4.1 mmol/L Normal 3.7-5.1 [facility] Comment on above: Order Comment: Speci men Type: BLOOD SPECIMENOrdering Facility: [facility] Address: [address] [place] [address] Performed By: #### 2 4323-8 ####[facility] [id number] [place] [address] [place] Protein [Mass/Vol] 7.4 g/dL Normal 6.3-8.0 [facility] Comment on above: Order Comment: Speci men Type: BLOOD SPECIMENOrdering Facility: [facility] Address: [address] [place] [address] Performed By: #### 2 4323-8 ####[facility] [id number] [place] [address] [place] Sodium [Moles/Vol] 142 mmol/L Normal 136-144 [facility] Comment on above: Order Comment: Speci men Type: BLOOD SPECIMENOrdering Facility: [facility] Address: [address] [place] [address] Performed By: #### 2 4323-8 ####[facility] [id number] [place] [address] [place] Urea nitrogen [Mass/Vol] 15 mg/dL Normal 7-21 [facility] Comment on above: Order Comment: Speci men Type: BLOOD SPECIMENOrdering Facility: [facility] Address: [address] [place] [address] Performed By: #### 2 4323-8 ####[facility] [id number] [address] [place] No Panel Informationon 11-08 Interpretation and review of laboratory results Normal [facility] T4 FREE/FREE THYROXINEon Free T4 [Mass/Vol] 1 ng/dL 0.9 - 1.7 ng/dL [facility] T4 Free SerPl-mCncon 025 Free T4 [Mass/Vol] 1.0 ng/dL Normal 0.9-1.7 [facility] Comment on above: Order Comment: Speci men Type: BLOOD SPECIMENOrdering Facility: [facility] Address: [address] [place] [address] Performed By: #### 3 024-7, 3016-3 ####[facility] [id number] [address] [place] THYROID STIMULATING HORMONEo n 11-08-2024 TSH Qn 0.985 m[IU]/L [facility] TSH SerPl-aCncon 11-08-2024 TSH Qn 0.985 m[IU]/L Normal 0.270-4.200 [facility] Comment on above: Order Comment: Speci men Type: BLOOD SPECIMENOrdering Facility: [facility] Address: [address] [place] [address] Performed By: #### 3 024-7, 3016-3 ####[facility] [id number] [place] [address] [place] [address] CHEST WO IVCONon 11-05-[address] CHEST WO IVCON * * *Final Report* * * DATE OF EXAM: Nov 04 2024 8:59AM [facility] [place]ST [place] IVCON / PROCEDURE REASON: C34.90-Adenocarcinoma of lung, stage 4, unspecified laterality (HCC) * * * * Physician Interpretation * * * * EXAMINATION: CHEST CT WITHOUT CONTRAST CLINICAL HISTORY: Adenocarcinoma of lung, stage 4, unspecified laterality (HCC) Technique: Spiral CT acquisition of the chest from the thoracic inlet to the upper abdomen without contrast. MQ: [id number] CT Radiation dose: Integrated Dose-length product (DLP) for this visit = 235 mGy*cm CT Dose Reduction Employed: Automated exposure control(AEC) and iterative recon Comparison: 08/26/2024, 06/01/2024 RESULT: Limitations: None. Lines, tubes, and devices: None. Lung parenchyma and airways: Emphysema mild, diffuse bronchiectasis. There is biapical fibrosis. Persistent consolidative opacity within the apicoposterior segment of the left upper lobe and lingula, when compared the prior examination, which may relate to post therapy change; however, continued interval surveillance is recommended. Atelectasis is seen within the right middle lobe. Stable groundglass attenuation nodular opacity is seen within the anterior segment right upper lobe, measuring approximately 1.7 cm (series 2, image #124). Other smaller groundglass attenuation nodule opacities are also stable. Pleural space: There is no pleural effusion. Lower neck, lymph nodes, and mediastinum: Again seen are surgical clips within the right lateral breast and right axilla. There are no pathologically enlarged axillary, mediastinal, or hilar lymph nodes. Heart, pericardium, and thoracic vessels: Atherosclerotic calcifications are present within thoracic aorta. Fatty hypertrophy of the intra-atrial septum. The heart is normal in size. Stable small pericardial effusion, when compared to the prior examination. Bones and soft tissues: There is scoliosis and multilevel degenerative change seen within the thoracic spine. A few presumed bone islands are seen in the osseous structures. Mild scoliosis of thoracic spine, convex to the left. Vacuum disc phenomena is seen at multiple levels. Stable mild compression deformity seen involving the T11 vertebral body, when compared to the prior examination. Again seen is a healing fracture involving the left lateral ninth rib. Upper abdomen: Contents are seen within the stomach. A few small splenules are incidentally noted within left upper quadrant. There is mild, nonspecific bilateral perinephric fat stranding. IMPRESSION: 1. No significant interval change in CT appearance of the chest. Persistent consolidative opacity within the apicoposterior segment of the left upper lobe and lingula, when compared to the prior examination, which may relate to posttherapy change; however, continued interval surveillance is recommended. 2. Stable groundglass attenuation nodular opacity is within the right upper lobe, measuring up to 1.7 cm. Other smaller groundglass attenuation nodular opacities are also stable. 3. No mili lymphadenopathy is seen within the chest. 4. Stable small pericardial effusion. Breakfast Cook: EVGENY Transcribe Date/Time: Nov 04 2024 10:17A Dictated by : BISHOP GUY MD This examination was interpreted and the report reviewed and electronically signed by: BISHOP GUY MD on Nov 04 2024 6:43PM EST [id number] [facility] [facility]on 11-04 IMPRESSION: 1. No significant interval change in CT appearance of the chest. Persistent consolidative opacity within the apicoposterior segment of the left upper lobe and lingula, when compared to the prior examination, which may relate to posttherapy change; however, continued interval surveillance is recommended. 2. Stable groundglass attenuation nodular opacity is within the right upper lobe, measuring up to 1.7 cm. Other smaller groundglass attenuation nodular opacities are also stable. 3. No mili lymphadenopathy is seen within the chest. 4. Stable small pericardial effusion. Breakfast Cook: EVGENY Transcribe Date/Time: Nov 04 2024 10:17A Dictated by : BISHOP GUY MD This examination was interpreted and the report reviewed and electronically signed by: BISHOP GUY MD on Nov 04 2024 6:43PM [facility] * * *Final Report* * * DATE OF EXAM: Nov 04 2024 8:59AM [facility] [place] CHEST [place] IVCON / PROCEDURE REASON: C34.90-Adenocarcinoma of lung, stage 4, unspecified laterality (HCC) * * * * Physician Interpretation * * * * EXAMINATION: CHEST CT WITHOUT CONTRAST CLINICAL HISTORY: Adenocarcinoma of lung, stage 4, unspecified laterality (HCC) Technique: Spiral CT acquisition of the chest from the thoracic inlet to the upper abdomen without contrast. MQ: CTCWO_6 CT Radiation dose: Integrated Dose-length product (DLP) for this visit = 235 mGy*cm CT Dose Reduction Employed: Automated exposure control(AEC) and iterative recon Comparison: 08/26/2024, 06/01/2024 RESULT: Limitations: None. Lines, tubes, and devices: None. Lung parenchyma and airways: Emphysema mild, diffuse bronchiectasis. There is biapical fibrosis. Persistent consolidative opacity within the apicoposterior segment of the left upper lobe and lingula, when compared the prior examination, which may relate to post therapy change; however, continued interval surveillance is recommended. Atelectasis is seen within the right middle lobe. Stable groundglass attenuation nodular opacity is seen within the anterior segment right upper lobe, measuring approximately 1.7 cm (series 2, image #124). Other smaller groundglass attenuation nodule opacities are also stable. Pleural space: There is no pleural effusion. Lower neck, lymph nodes, and mediastinum: Again seen are surgical clips within the right lateral breast and right axilla. There are no pathologically enlarged axillary, mediastinal, or hilar lymph nodes. Heart, pericardium, and thoracic vessels: Atherosclerotic calcifications are present within thoracic aorta. Fatty hypertrophy of the intra-atrial septum. The heart is normal in size. Stable small pericardial effusion, when compared to the prior examination. Bones and soft tissues: There is scoliosis and multilevel degenerative change seen within the thoracic spine. A few presumed bone islands are seen in the osseous structures. Mild scoliosis of thoracic spine, convex to the left. Vacuum disc phenomena is seen at multiple levels. Stable mild compression deformity seen involving the T11 vertebral body, when compared to the prior examination. Again seen is a healing fracture involving the left lateral ninth rib. Upper abdomen: Contents are seen within the stomach. A few small splenules are incidentally noted within left upper quadrant. There is mild, nonspecific bilateral perinephric fat stranding. [facility] Provider, [facility] - 11/04/2024 * * *Final Report* * * DATE OF EXAM: Nov 04 2024 8:59AM [facility] [place] CHEST WO IVCON / PROCEDURE REASON: C34.90-Adenocarcinoma of lung, stage 4, unspecified laterality (HCC) * * * * Physician Interpretation * * * * EXAMINATION: CHEST CT WITHOUT CONTRAST CLINICAL HISTORY: Adenocarcinoma of lung, stage 4, unspecified laterality (HCC) Technique: Spiral CT acquisition of the chest from the thoracic inlet to the upper abdomen without contrast. MQ: CTCWO_6 CT Radiation dose: Integrated Dose-length product (DLP) for this visit = 235 mGy*cm CT Dose Reduction Employed: Automated exposure control(AEC) and iterative recon Comparison: 08/26/2024, 06/01/2024 RESULT: Limitations: None. Lines, tubes, and devices: None. Lung parenchyma and airways: Emphysema mild, diffuse bronchiectasis. There is biapical fibrosis. Persistent consolidative opacity within the apicoposterior segment of the left upper lobe and lingula, when compared the prior examination, which may relate to post therapy change; however, continued interval surveillance is recommended. Atelectasis is seen within the right middle lobe. Stable groundglass attenuation nodular opacity is seen within the anterior segment right upper lobe, measuring approximately 1.7 cm (series 2, image #124). Other smaller groundglass attenuation nodule opacities are also stable. Pleural space: There is no pleural effusion. Lower neck, lymph nodes, and mediastinum: Again seen are surgical clips within the right lateral breast and right axilla. There are no pathologically enlarged axillary, mediastinal, or hilar lymph nodes. Heart, pericardium, and thoracic vessels: Atherosclerotic calcifications are present within thoracic aorta. Fatty hypertrophy of the intra-atrial septum. The heart is normal in size. Stable small pericardial effusion, when compared to the prior examination. Bones and soft tissues: There is scoliosis and multilevel degenerative change seen within the thoracic spine. A few presumed bone islands are seen in the osseous structures. Mild scoliosis of thoracic spine, convex to the left. Vacuum disc phenomena is seen at multiple levels. Stable mild compression deformity seen involving the T11 vertebral body, when compared to the prior examination. Again seen is a healing fracture involving the left lateral ninth rib. Upper abdomen: Contents are seen within the stomach. A few small splenules are incidentally noted within left upper quadrant. There is mild, nonspecific bilateral perinephric fat stranding. IMPRESSION IMPRESSION: 1. No significant interval change in CT appearance of the chest. Persistent consolidative opacity within the apicoposterior segment of the left upper lobe and lingula, when compared to the prior examination, which may relate to posttherapy change; however, continued interval surveillance is recommended. 2. Stable groundglass attenuation nodular opacity is within the right upper lobe, measuring up to 1.7 cm. Other smaller groundglass attenuation nodular opacities are also stable. 3. No mili lymphadenopathy is seen within the chest. 4. Stable small pericardial effusion. Breakfast Cook: EVGENY Transcribe Date/Time: Nov 04 2024 10:17A Dictated by : BISHOP GUY MD This examination was interpreted and the report reviewed and electronically signed by: BISHOP GUY MD on Nov 04 2024 6:43PM [facility] Radiology Study observation (narrative) [facility] CT Chest WO contrastOrdered By: [facility]cf Provider on 11-04-2024 [facility] CNOVon 10-28-2024 CNOV Normal [facility] MR Brain WO and W contrast I Von 10-28-2024 IMPRESSION: Stable MRI of the brain compared to 07/29/2024 without evidence of new or progressive intracranial metastatic disease. Breakfast Cook: EVGENY Transcribe Date/Time: Oct 28 2024 9:28A Dictated by : LAYNE PITTS MD This examination was interpreted and the report reviewed and electronically signed by: LAYNE PITTS MD on Oct 28 2024 9:48AM [facility] RADIOLOG[facility] * * *Final Report* * * DATE OF EXAM: Oct 28 2024 9:01AM [facility] 0295 - MRI BRAIN WO/W IVCON / PROCEDURE REASON: C79.31-Metastasis to brain (HCC) * * * * Physician Interpretation * * * * EXAMINATION: MRI BRAIN WO/W IVCON CLINICAL HISTORY: Intracranial metastases, history of adenocarcinoma of the lung with intracranial metastases status post radiosurgery 07/28/2023. TECHNIQUE: Routine brain MRI protocol without and with contrast including diffusion images. Perfusion: MR perfusion study was performed of the entire brain following bolus intravenous administration of gadolinium utilizing dynamic susceptibility-weighte d contrast-enhanced acquisition. MQ: MRBWOW_2 Contrast: 15 mL Dotarem IV COMPARISON: MRI brain 07/29/2024 RESULT: Acute Change: There is no evidence of an acute intracranial process. Hemorrhage: No evidence of prior parenchymal hemorrhage on the susceptibility weighted images. Mass Lesion/ Mass Effect: No evidence of an intracranial mass or extra-axial fluid collection. No abnormal parenchymal or leptomeningeal enhancement is noted following contrast administration. No significant mass effect. No perfusion abnormalities noted. Chronic Change: Scattered punctate foci of increased T2 and FLAIR signal are noted in the supratentorial white matter which is a nonspecific finding, unchanged from the prior exam. Parenchyma: No significant volume loss for age. The brain parenchyma is otherwise within normal limits of signal intensity and morphology. Ventricles: Normal caliber and morphology. Skull Base: Hypothalamic and pituitary region are grossly normal. Craniocervical junction is normal. No significant marrow replacement process. Vasculature: Major intracranial arterial structures, and dural venous sinuses show typical flow void, suggesting patency by spin echo criteria. Other: Bilateral mastoid effusions. Mild mucosal thickening in the bilateral maxillary sinuses and right sphenoid sinus. The visualized paranasal sinuses and mastoid air cells are otherwise clear. The orbits and extracranial soft tissues are unremarkable. [facility] Provider, [facility] - 10/28/2024 * * *Final Report* * * DATE OF EXAM: Oct 28 2024 9:01AM [facility] 0295 - MRI BRAIN WO/W IVCON / PROCEDURE REASON: C79.31-Metastasis to brain (HCC) * * * * Physician Interpretation * * * * EXAMINATION: MRI BRAIN WO/W IVCON CLINICAL HISTORY: Intracranial metastases, history of adenocarcinoma of the lung with intracranial metastases status post radiosurgery 07/28/2023. TECHNIQUE: Routine brain MRI protocol without and with contrast including diffusion images. Perfusion: MR perfusion study was performed of the entire brain following bolus intravenous administration of gadolinium utilizing dynamic susceptibility-weighte d contrast-enhanced acquisition. MQ: MRBWOW_2 Contrast: 15 mL Dotarem IV COMPARISON: MRI brain 07/29/2024 RESULT: Acute Change: There is no evidence of an acute intracranial process. Hemorrhage: No evidence of prior parenchymal hemorrhage on the susceptibility weighted images. Mass Lesion/ Mass Effect: No evidence of an intracranial mass or extra-axial fluid collection. No abnormal parenchymal or leptomeningeal enhancement is noted following contrast administration. No significant mass effect. No perfusion abnormalities noted. Chronic Change: Scattered punctate foci of increased T2 and FLAIR signal are noted in the supratentorial white matter which is a nonspecific finding, unchanged from the prior exam. Parenchyma: No significant volume loss for age. The brain parenchyma is otherwise within normal limits of signal intensity and morphology. Ventricles: Normal caliber and morphology. Skull Base: Hypothalamic and pituitary region are grossly normal. Craniocervical junction is normal. No significant marrow replacement process. Vasculature: Major intracranial arterial structures, and dural venous sinuses show typical flow void, suggesting patency by spin echo criteria. Other: Bilateral mastoid effusions. Mild mucosal thickening in the bilateral maxillary sinuses and right sphenoid sinus. The visualized paranasal sinuses and mastoid air cells are otherwise clear. The orbits and extracranial soft tissues are unremarkable. IMPRESSION IMPRESSION: Stable MRI of the brain compared to 07/29/2024 without evidence of new or progressive intracranial metastatic disease. Breakfast Cook: EVGENY Transcribe Date/Time: Oct 28 2024 9:28A Dictated by : LAYNE PITTS MD This examination was interpreted and the report reviewed and electronically signed by: LAYNE PITTS MD on Oct 28 2024 9:48AM EST [facility] Radiology Study observation (narrative) [facility] MR Brain WO and W contrast I VOrdered By: [facility] Provider on 10-28-2024 [facility] MRI BRAIN WO/W IVCONon 10-28 MRI BRAIN WO/W IVCON * * *Final Report* * * DATE OF EXAM: Oct 28 2024 9:01AM [facility] 0295 - MRI BRAIN WO/W IVCON / PROCEDURE REASON: C79.31-Metastasis to brain (HCC) * * * * Physician Interpretation * * * * EXAMINATION: MRI BRAIN WO/W IVCON CLINICAL HISTORY: Intracranial metastases, history of adenocarcinoma of the lung with intracranial metastases status post radiosurgery 07/28/2023. TECHNIQUE: Routine brain MRI protocol without and with contrast including diffusion images. Perfusion: MR perfusion study was performed of the entire brain following bolus intravenous administration of gadolinium utilizing dynamic susceptibility-weighte d contrast-enhanced acquisition. MQ: MRBWOW_2 Contrast: 15 mL Dotarem IV COMPARISON: MRI brain 07/29/2024 RESULT: Acute Change: There is no evidence of an acute intracranial process. Hemorrhage: No evidence of prior parenchymal hemorrhage on the susceptibility weighted images. Mass Lesion/ Mass Effect: No evidence of an intracranial mass or extra-axial fluid collection. No abnormal parenchymal or leptomeningeal enhancement is noted following contrast administration. No significant mass effect. No perfusion abnormalities noted. Chronic Change: Scattered punctate foci of increased T2 and FLAIR signal are noted in the supratentorial white matter which is a nonspecific finding, unchanged from the prior exam. Parenchyma: No significant volume loss for age. The brain parenchyma is otherwise within normal limits of signal intensity and morphology. Ventricles: Normal caliber and morphology. Skull Base: Hypothalamic and pituitary region are grossly normal. Craniocervical junction is normal. No significant marrow replacement process. Vasculature: Major intracranial arterial structures, and dural venous sinuses show typical flow void, suggesting patency by spin echo criteria. Other: Bilateral mastoid effusions. Mild mucosal thickening in the bilateral maxillary sinuses and right sphenoid sinus. The visualized paranasal sinuses and mastoid air cells are otherwise clear. The orbits and extracranial soft tissues are unremarkable. IMPRESSION: Stable MRI of the brain compared to 07/29/2024 without evidence of new or progressive intracranial metastatic disease. Breakfast Cook: PSCJeffery Transcribe Date/Time: Oct 28 2024 9:28A Dictated by : LAYNE PITTS MD This examination was interpreted and the report reviewed and electronically signed by: LAYNE PITTS MD on Oct 28 2024 9:48AM EST [id number] [facility] NURSING PROGon 10-28-2024 NURSING PROG HNO ID: [id number] Author: TING DAWSON RN Service: Nursing Author Type: Registered Nurse Type: Nursing Progress Note Filed: 10/28/2024 08:38 Note Text: Radiology Service Progress Note DATE OF SERVICE: October 28, 2024 TIME: 8:37 AM PATIENT WEIGHT: LBS PATIENT IDENTITY VERIFICATION COMPLETED USING TWO (2) STANDARD IDENTIFIERS: Name and Date of confirmed by patient verbally. FALL SCREENING: Has the patient had 2 falls in the last year or 1 fall with injury or currently using an Ambulatory Assistive Device (Walker, Cane, Wheelchair, Crutches, etc.)? No PATIENT GENDER DATA: Assigned female at . status: : No status: NO. ALLERGIES: Reviewed and unchanged CONTRAST ALLERGY: No EXAM: MRI - CONTRAST TYPE: GROUP II IV SITE: Ambulatory: A peripheral IV was started in the Left antecubital site with a Angio cath: 22 gauge. IV started with US guidance IV SITE APPEARANCE: Clean,Dry and Intact SIGNATURE: Ting Dawson RN PATIENT NAME: Lashell Segura DATE: October 28, 2024 TIME: 8:37 AM [facility] CBC W Auto Differential pane l (Bld)on 10-18-2024 Basophils (Bld) [#/Vol] 0.06 10*3/uL [facility] Basophils/100 WBC (Bld) 0.8 % [facility] Differential cell count method Nom (Bld) Auto [facility] Eosinophils (Bld) [#/Vol] 0.21 10*3/uL [facility] Eosinophils/100 WBC (Bld) 2.9 % [facility] Erythrocyte distribution width (RBC) [Ratio] 14.5 % 11.5 - 15.0 % [facility] Hematocrit (Bld) [Volume fraction] 35.7 % Low 36.0 - 46.0 % [facility] Hemoglobin (Bld) [Mass/Vol] 12.5 g/dL 11.5 - 15.5 g/dL [facility] Immature granulocytes (Bld) [#/Vol] [facility] Immature granulocytes/100 WBC (Bld) 0.3 % [facility] Interpretation and review of laboratory results Abnormal [facility] Lymphocytes (Bld) [#/Vol] 2.67 10*3/uL [facility] Lymphocytes/100 WBC (Bld) 36.6 % [facility] MCH (RBC) [Entitic mass] 34.8 pg High 26.0 - 34.0 pg [facility] MCHC (RBC) [Mass/Vol] 35 g/dL 30.5 - 36.0 g/dL [facility] MCV (RBC) [Entitic vol] 99.4 fL 80.0 - 100.0 fL [facility] Monocytes (Bld) [#/Vol] 0.69 10*3/uL [facility] Monocytes/100 WBC (Bld) 9.5 % [facility] Neutrophils (Bld) [#/Vol] 3.64 10*3/uL [facility] Neutrophils/100 WBC (Bld) 49.9 % [facility] Nucleated RBC (Bld) [#/Vol] [facility] Nucleated RBC/100 WBC (Bld) [Ratio] 0 % /100 WBC [facility] Platelet mean volume (Bld) [Entitic vol] 8.2 fL Low 9.0 - 12.7 fL [facility] Platelets (Bld) [#/Vol] 450 10*3/uL High [facility] RBC (Bld) [#/Vol] 3.59 10*6/uL Low 3.90 - 5.2 0 m/uL [facility] WBC (Bld) [#/Vol] 7.29 10*3/uL [facility] Basophils (Bld) [#/Vol] 0.06 10*3/uL Normal <0.11 [facility] Comment on above: Order Comment: Speci men Type: BLOOD SPECIMENOrdering Facility: [facility] Address: [address] [place] [address] Performed By: #### 5 7021-8 ####[facility] [id number] [place] [address] [place] Basophils/100 WBC (Bld) 0.8 % Normal [facility] Comment on above: Order Comment: Speci men Type: BLOOD SPECIMENOrdering Facility: [facility] Address: [address] [place] [address] Performed By: #### 5 7021-8 ####[facility] [id number] [place] [address] [place] Differential cell count method Nom (Bld) Auto Normal [facility] Comment on above: Order Comment: Speci men Type: BLOOD SPECIMENOrdering Facility: [facility] Address: [address] [place] [address] Performed By: #### 5 7021-8 ####[facility] [id number] [place] [address] [place] Eosinophils (Bld) [#/Vol] 0.21 10*3/uL Normal <0.46 [facility] Comment on above: Order Comment: Speci men Type: BLOOD SPECIMENOrdering Facility: [facility] Address: [address] [place] [address] Performed By: #### 5 7021-8 ####[facility] [id number] [place] [address] [place] Eosinophils/100 WBC (Bld) 2.9 % Normal [facility] Comment on above: Order Comment: Speci men Type: BLOOD SPECIMENOrdering Facility: [facility] Address: [address] [place] [address] Performed By: #### 5 7021-8 ####[facility] [id number] [place] [address] [place] Erythrocyte distribution width (RBC) [Ratio] 14.5 % Normal 11.5-15.0 [facility] Comment on above: Order Comment: Speci men Type: BLOOD SPECIMENOrdering Facility: [facility] Address: [address] [place] [address] Performed By: #### 5 7021-8 ####[facility] [id number] [place] [address] [place] Hematocrit (Bld) [Volume fraction] 35.7 % Low 36.0-46.0 [facility] Comment on above: Order Comment: Speci men Type: BLOOD SPECIMENOrdering Facility: [facility] Address: [address] [place] [address] Performed By: #### 5 7021-8 ####[facility] [id number] [place] [address] [place] Hemoglobin (Bld) [Mass/Vol] 12.5 g/dL Normal 11.5-15.5 [facility] Comment on above: Order Comment: Speci men Type: BLOOD SPECIMENOrdering Facility: [facility] Address: [address] [place] [address] Performed By: #### 5 7021-8 ####[facility] [id number] [place] [address] [place] Immature granulocytes (Bld) [#/Vol] 10*3/uL Normal <0.10 [facility] Comment on above: Order Comment: Speci men Type: BLOOD SPECIMENOrdering Facility: [facility] Address: [address] [place] [address] Performed By: #### 5 7021-8 ####[facility] [id number] [place] [address] [place] Immature granulocytes/100 WBC (Bld) 0.3 % Normal [facility] Comment on above: Order Comment: Speci men Type: BLOOD SPECIMENOrdering Facility: [facility] Address: [address] [place] [address] Performed By: #### 5 7021-8 ####[facility] [id number] [place] [address] [place] Lymphocytes (Bld) [#/Vol] 2.67 10*3/uL Normal 1.00-4.00 [facility] Comment on above: Order Comment: Speci men Type: BLOOD SPECIMENOrdering Facility: [facility] Address: [address] [place] [address] Performed By: #### 5 7021-8 ####[facility] [id number] [place] [address] [place] Lymphocytes/100 WBC (Bld) 36.6 % Normal [facility] Comment on above: Order Comment: Speci men Type: BLOOD SPECIMENOrdering Facility: [facility] Address: [address] [place] [address] Performed By: #### 5 7021-8 ####[facility] [id number] [place] [address] [place] MCH (RBC) [Entitic mass] 34.8 pg High 26.0-34.0 [facility] Comment on above: Order Comment: Speci men Type: BLOOD SPECIMENOrdering Facility: [facility] Address: [address] [place] [address] Performed By: #### 5 7021-8 ####[facility] [id number] [place] [address] [place] MCHC (RBC) [Mass/Vol] 35.0 g/dL Normal 30.5-36.0 [facility] Comment on above: Order Comment: Speci men Type: BLOOD SPECIMENOrdering Facility: [facility] Address: [address] [place] [address] Performed By: #### 5 7021-8 ####[facility] [id number] [place] [address] [place] MCV (RBC) [Entitic vol] 99.4 fL Normal 80.0-100.0 [facility] Comment on above: Order Comment: Speci men Type: BLOOD SPECIMENOrdering Facility: [facility] Address: [address] [place] [address] Performed By: #### 5 7021-8 ####[facility] [id number] [place] [address] [place] Monocytes (Bld) [#/Vol] 0.69 10*3/uL Normal <0.87 [facility] Comment on above: Order Comment: Speci men Type: BLOOD SPECIMENOrdering Facility: [facility] Address: [address] [place] [address] Performed By: #### 5 7021-8 ####[facility] [id number] [place] [address] [place] Monocytes/100 WBC (Bld) 9.5 % Normal [facility] Comment on above: Order Comment: Speci men Type: BLOOD SPECIMENOrdering Facility: [facility] Address: [address] [place] [address] Performed By: #### 5 7021-8 ####[facility] [id number] [place] [address] [place] Neutrophils (Bld) [#/Vol] 3.64 10*3/uL Normal 1.45-7.50 [facility] Comment on above: Order Comment: Speci men Type: BLOOD SPECIMENOrdering Facility: [facility] Address: [address] [place] [address] Performed By: #### 5 7021-8 ####[facility] [id number] [place] [address] [place] Neutrophils/100 WBC (Bld) 49.9 % Normal [facility] Comment on above: Order Comment: Speci men Type: BLOOD SPECIMENOrdering Facility: [facility] Address: [address] [place] [address] Performed By: #### 5 7021-8 ####[facility] [id number] [place] [address] [place] Nucleated RBC (Bld) [#/Vol] 10*3/uL Normal <0.01 [facility] Comment on above: Order Comment: Speci men Type: BLOOD SPECIMENOrdering Facility: [facility] Address: [address] [place] [address] Performed By: #### 5 7021-8 ####[facility] [id number] [place] [address] [place] Nucleated RBC/100 WBC (Bld) [Ratio] 0.0 /100 WBC Normal [facility] Comment on above: Order Comment: Speci men Type: BLOOD SPECIMENOrdering Facility: [facility] Address: [address] [place] [address] Performed By: #### 5 7021-8 ####[facility] [id number] [place] [address] [place] Platelet mean volume (Bld) [Entitic vol] 8.2 fL Low 9.0-12.7 [facility] Comment on above: Order Comment: Speci men Type: BLOOD SPECIMENOrdering Facility: [facility] Address: [address] [place] [address] Performed By: #### 5 7021-8 ####[facility] [id number] [place] [address] [place] Platelets (Bld) [#/Vol] 450 10*3/uL High 150-400 [facility] Comment on above: Order Comment: Speci men Type: BLOOD SPECIMENOrdering Facility: [facility] Address: [address] [place] [address] Performed By: #### 5 7021-8 ####[facility] [id number] [place] [address] [place] RBC (Bld) [#/Vol] 3.59 10*6/uL Low 3.90-5.20 [facility] Comment on above: Order Comment: Speci men Type: BLOOD SPECIMENOrdering Facility: [facility] Address: [address] [place] [address] Performed By: #### 5 7021-8 ####[facility] [id number] [place] [address] [place] WBC (Bld) [#/Vol] 7.29 10*3/uL Normal 3.70-11.00 [facility] Comment on above: Order Comment: Speci men Type: BLOOD SPECIMENOrdering Facility: [facility] Address: [address] [place] [address] Performed By: #### 5 7021-8 ####[facility] [id number] [place] [address] [place] CNOVSPon 10-18-2024 CNOVSP Normal [facility] metabolic 2000 panelon 10-18-2024 Albumin [Mass/Vol] 4.1 g/dL 3.9 - 4.9 g/dL [facility] ALP [Catalytic activity/Vol] 137 U/L High 34 - 123 U/L [facility] ALT [Catalytic activity/Vol] 32 U/L 7 - 38 U/L [facility] Anion gap [Moles/Vol] 10 mmol/L 8 - 15 mmol/L [facility] AST [Catalytic activity/Vol] 36 U/L High 13 - 35 U/L [facility] Bilirubin [Mass/Vol] mg/dL Low 0.2 - 1 .3 mg/dL [facility] Calcium [Mass/Vol] 9.5 mg/dL 8.5 - 10. 2 mg/dL [facility] Chloride [Moles/Vol] 105 mmol/L 98 - 10 7 mmol/L [facility] CO2 [Moles/Vol] 24 mmol/L 22 - 30 mmol/L [facility] Creatinine [Mass/Vol] 0.9 mg/dL 0.58 - 0.96 mg/dL [facility] GFR/1.73 sq M.predicted among non-blacks MDRD (S/P/Bld) [Vol rate/Area] 75 mL/min/{1.73_m2} - PINF [facility] Comment on above: Estimated Glomerular Filtration Rate (eGFR) is calculated using the 2020 CKD-EPI creatinine equation. This equation utilizes serum creatinine, sex, and age as parameters. The creatinine assay has traceable calibration to isotope dilution-mass spectrometry. Refer to KDIGO guidelines for clinical interpretation. In patients with unstable renal function, e.g. those with acute kidney injury, the eGFR may not accurately reflect actual GFR. Glucose [Mass/Vol] 88 mg/dL 74 - 99 mg/dL [facility] Comment on above: The [employer] Diabete s Association (ADA) provides guidance for cutoff values for fasting glucose and random glucose. The ADA defines fasting as no caloric intake for at least 8 hours. Fasting plasma glucose results between 100 to 125 mg/dL indicate increased risk for diabetes (prediabetes). Fasting plasma glucose results greater than or equal to 126 mg/dL meet the criteria for diagnosis of diabetes. In the absence of unequivocal hyperglycemia, results should be confirmed by repeat testing. In a patient with classic symptoms of hyperglycemia or hyperglycemic crisis, random plasma glucose results greater than or equal to 200 mg/dL meet the criteria for diagnosis of diabetes. Reference: Standards of Medical Care in Diabetes 2016, [employer] Diabetes Association. Diabetes Care. 2016.39(Suppl 1). Interpretation and review of laboratory results Abnormal [facility] Potassium [Moles/Vol] 4.2 mmol/L 3.7 - 5.1 mmol/L [facility] Protein [Mass/Vol] 7 g/dL 6.3 - 8.0 g/dL [facility] Sodium [Moles/Vol] 139 mmol/L 136 - 144 mmol/L [facility] Urea nitrogen [Mass/Vol] 15 mg/dL 7 - 21 mg/dL [facility] Albumin [Mass/Vol] 4.1 g/dL Normal 3.9-4.9 [facility] Comment on above: Order Comment: Speci men Type: BLOOD SPECIMENOrdering Facility: [facility] Address: [address] [place] [address] Performed By: #### 2 4323-8 ####[facility] [id number] [place] [address] [place] ALP [Catalytic activity/Vol] 137 U/L High 34-123 [facility] Comment on above: Order Comment: Speci men Type: BLOOD SPECIMENOrdering Facility: [facility] Address: [address] [place] [address] Performed By: #### 2 4323-8 ####[facility] [id number] [place] [address] [place] ALT [Catalytic activity/Vol] 32 U/L Normal 7-38 [facility] Comment on above: Order Comment: Speci men Type: BLOOD SPECIMENOrdering Facility: [facility] Address: [address] [place] [address] Performed By: #### 2 4323-8 ####[facility] [id number] [place] [address] [place] Anion gap [Moles/Vol] 10 mmol/L Normal 8-15 [facility] Comment on above: Order Comment: Speci men Type: BLOOD SPECIMENOrdering Facility: [facility] Address: [address] [place] [address] Performed By: #### 2 4323-8 ####[facility] [id number] [place] [address] [place] AST [Catalytic activity/Vol] 36 U/L High 13-35 [facility] Comment on above: Order Comment: Speci men Type: BLOOD SPECIMENOrdering Facility: [facility] Address: [address] [place] [address] Performed By: #### 2 4323-8 ####[facility] [id number] [place] [address] [place] Bilirubin [Mass/Vol] mg/dL Low 0.2-1.3 [facility] Comment on above: Order Comment: Speci men Type: BLOOD SPECIMENOrdering Facility: [facility] Address: [address] [place] [address] Performed By: #### 2 4323-8 ####[facility] [id number] [place] [address] [place] Calcium [Mass/Vol] 9.5 mg/dL Normal 8.5-10.2 [facility] Comment on above: Order Comment: Speci men Type: BLOOD SPECIMENOrdering Facility: [facility] Address: [address] [place] [address] Performed By: #### 2 4323-8 ####[facility] [id number] [place] [address] [place] Chloride [Moles/Vol] 105 mmol/L Normal 98-107 [facility] Comment on above: Order Comment: Speci men Type: BLOOD SPECIMENOrdering Facility: [facility] Address: [address] [place] [address] Performed By: #### 2 4323-8 ####[facility] [id number] [place] [address] [place] CO2 [Moles/Vol] 24 mmol/L Normal 22-30 [facility] Comment on above: Order Comment: Speci men Type: BLOOD SPECIMENOrdering Facility: [facility] Address: [address] [place] [address] Performed By: #### 2 4323-8 ####[facility] [id number] [place] [address] [place] Creatinine [Mass/Vol] 0.90 mg/dL Normal 0.58-0.96 [facility] Comment on above: Order Comment: Speci men Type: BLOOD SPECIMENOrdering Facility: [facility] Address: [address] [place] [address] Performed By: #### 2 4323-8 ####[facility] [id number] [place] [address] [place] Creatinine and Glomerular filtration rate.predicted panel (S/P/Bld) 75 mL/min/1.73m??? Normal >=60 [facility] Comment on above: Order Comment: Eris staton Type: BLOOD SPECIMENOrdering Facility: [facility] Address: [address] [place] [address] Result Comment: Jina mated Glomerular Filtration Rate (eGFR) is calculated using the 2020 CKD-EPI creatinine equation. This equation utilizes serum creatinine, sex, and age as parameters. The creatinine assay has traceable calibration to isotope dilution-mass spectrometry. Refer to KDIGO guidelines for clinical interpretation. In patients with unstable renal function, e.g. those with acute kidney injury, the eGFR may not accurately reflect actual GFR. Performed By: #### 2 4323-8 ####[facility] [id number] [place] [address] [place] Glucose [Mass/Vol] 88 mg/dL Normal 74-99 [facility] Comment on above: Order Comment: Eris staton Type: BLOOD SPECIMENOrdering Facility: [facility] Address: [address] [place] [address] Result Comment: The English Diabetes Association (ADA) provides guidance for cutoff values for fasting glucose and random glucose. The ADA defines fasting as no caloric intake for at least 8 hours. Fasting plasma glucose results between 100 to 125 mg/dL indicate increased risk for diabetes (prediabetes).Fasting plasma glucose results greater than or equal to 126 mg/dL meet the criteria for diagnosis of diabetes. In the absence of unequivocal hyperglycemia, results should be confirmed by repeat testing. In a patient with classic symptoms of hyperglycemia or hyperglycemic crisis, random plasma glucose results greater than or equal to 200 mg/dL meet the criteria for diagnosis of diabetes.Reference: Standards of Medical Care in Diabetes 2016, [place] Diabetes Association. Diabetes Care. 2016.39(Suppl 1). Performed By: #### 2 4323-8 ####[facility] [id number] [place] [address] [place] Potassium [Moles/Vol] 4.2 mmol/L Normal 3.7-5.1 [facility] Comment on above: Order Comment: Speci men Type: BLOOD SPECIMENOrdering Facility: [facility] Address: [address] [place] [address] Performed By: #### 2 4323-8 ####[facility] [id number] [place] [address] [place] Protein [Mass/Vol] 7.0 g/dL Normal 6.3-8.0 [facility] Comment on above: Order Comment: Speci men Type: BLOOD SPECIMENOrdering Facility: [facility] Address: [address] [place] [address] Performed By: #### 2 4323-8 ####[facility] [id number] [place] [address] [place] Sodium [Moles/Vol] 139 mmol/L Normal 136-144 [facility] Comment on above: Order Comment: Speci men Type: BLOOD SPECIMENOrdering Facility: [facility] Address: [address] [place] [address] Performed By: #### 2 4323-8 ####[facility] [id number] [place] [address] [place] Urea nitrogen [Mass/Vol] 15 mg/dL Normal 7-21 [facility] Comment on above: Order Comment: Speci men Type: BLOOD SPECIMENOrdering Facility: [facility] Address: [address] [place] [address] Performed By: #### 2 4323-8 ####[facility] [id number] [place] [address] [place] Free T4 [Mass/Vol]on 025 Interpretation and review of laboratory results Abnormal [facility] No Panel Informationon 10-18 [facility] T4 FREE/FREE THYROXINEon Free T4 [Mass/Vol] 0.8 ng/dL Low 0.9 - 1.7 ng/dL [facility] T4 Free SerPl-mCncon 025 Free T4 [Mass/Vol] 0.8 ng/dL Low 0.9-1.7 [facility] Comment on above: Order Comment: Speci men Type: BLOOD SPECIMENOrdering Facility: [facility] Address: [address] [place] [address] Performed By: #### 3 024-7, 3016-3 ####[facility] LABCLIA [id number] [place] [address] [place] THYROID STIMULATING HORMONEo n 10-18-2024 TSH Qn 1.27 m[IU]/L [facility] TSH Qnon 10-18-2024 Interpretation and review of laboratory results Normal [facility] TSH SerPl-aCncon 10-18-2024 TSH Qn 1.270 m[IU]/L Normal 0.270-4.200 [facility] Comment on above: Order Comment: Speci men Type: BLOOD SPECIMENOrdering Facility: [facility] Address: [address] [place] [address] Performed By: #### 3 024-7, 3016-3 ####[facility] LABCLIA [id number] [place] [address] [place] CBC W Auto Differential pane l (Bld)on 09-27-2024 Basophils (Bld) [#/Vol] 0.07 10*3/uL [facility] Basophils/100 WBC (Bld) 0.8 % [facility] Differential cell count method Nom (Bld) Auto [facility] Eosinophils (Bld) [#/Vol] 0.12 10*3/uL [facility] Eosinophils/100 WBC (Bld) 1.3 % [facility] Erythrocyte distribution width (RBC) [Ratio] 13.6 % 11.5 - 15.0 % [facility] Hematocrit (Bld) [Volume fraction] 37.9 % 36.0 - 46.0 % [facility] Hemoglobin (Bld) [Mass/Vol] 13.5 g/dL 11.5 - 15.5 g/dL [facility] Immature granulocytes (Bld) [#/Vol] 0.03 10*3/uL NINF [facility] Immature granulocytes/100 WBC (Bld) 0.3 % [facility] Interpretation and review of laboratory results Abnormal [facility] Lymphocytes (Bld) [#/Vol] 2.20 10*3/uL [facility] Lymphocytes/100 WBC (Bld) 24.5 % [facility] MCH (RBC) [Entitic mass] 35.2 pg High 26.0 - 34.0 pg [facility] MCHC (RBC) [Mass/Vol] 35.6 g/dL 30.5 - 36.0 g/dL [facility] MCV (RBC) [Entitic vol] 98.7 fL 80.0 - 100.0 fL [facility] Monocytes (Bld) [#/Vol] 0.88 10*3/uL [facility] Monocytes/100 WBC (Bld) 9.8 % [facility] Neutrophils (Bld) [#/Vol] 5.68 10*3/uL [facility] Neutrophils/100 WBC (Bld) 63.3 % [facility] Nucleated RBC (Bld) [#/Vol] NINF [facility] Nucleated RBC/100 WBC (Bld) [Ratio] 0.0 % /100 WBC [facility] Platelet mean volume (Bld) [Entitic vol] 8.4 fL Low 9.0 - 12.7 fL [facility] Platelets (Bld) [#/Vol] 291 10*3/uL [facility] RBC (Bld) [#/Vol] 3.84 10*6/uL Low 3.90 - 5.2 0 m/uL [facility] WBC (Bld) [#/Vol] 8.98 10*3/uL [facility] Basophils (Bld) [#/Vol] 0.07 10*3/uL Normal <0.11 [facility] Comment on above: Order Comment: Speci men Type: BLOOD SPECIMENOrdering Facility: [facility] Address: [address] [place] [address] Performed By: #### 5 8369-8 ####[facility] [id number] [place] [address] [place] Basophils/100 WBC (Bld) 0.8 % Normal [facility] Comment on above: Order Comment: Speci men Type: BLOOD SPECIMENOrdering Facility: [facility] Address: [address] [place] [address] Performed By: #### 5 7021-8 ####[facility] [id number] [place] [address] [place] Differential cell count method Nom (Bld) Auto Normal [facility] Comment on above: Order Comment: Speci men Type: BLOOD SPECIMENOrdering Facility: [facility] Address: [address] [place] [address] Performed By: #### 5 7021-8 ####[facility] [id number] [place] [address] [place] Eosinophils (Bld) [#/Vol] 0.12 10*3/uL Normal <0.46 [facility] Comment on above: Order Comment: Speci men Type: BLOOD SPECIMENOrdering Facility: [facility] Address: [address] [place] [address] Performed By: #### 5 7021-8 ####[facility] [id number] [place] [address] [place] Eosinophils/100 WBC (Bld) 1.3 % Normal [facility] Comment on above: Order Comment: Speci men Type: BLOOD SPECIMENOrdering Facility: [facility] Address: [address] [place] [address] Performed By: #### 5 7021-8 ####[facility] [id number] [place] [address] [place] Erythrocyte distribution width (RBC) [Ratio] 13.6 % Normal 11.5-15.0 [facility] Comment on above: Order Comment: Speci men Type: BLOOD SPECIMENOrdering Facility: [facility] Address: [address] [place] [address] Performed By: #### 5 7021-8 ####[facility] [id number] [place] [address] [place] Hematocrit (Bld) [Volume fraction] 37.9 % Normal 36.0-46.0 [facility] Comment on above: Order Comment: Speci men Type: BLOOD SPECIMENOrdering Facility: [facility] Address: [address] [place] [address] Performed By: #### 5 7021-8 ####[facility] [id number] [place] [address] [place] Hemoglobin (Bld) [Mass/Vol] 13.5 g/dL Normal 11.5-15.5 [facility] Comment on above: Order Comment: Speci men Type: BLOOD SPECIMENOrdering Facility: [facility] Address: [address] [place] [address] Performed By: #### 5 7021-8 ####[facility] [id number] [place] [address] [place] Immature granulocytes (Bld) [#/Vol] 0.03 10*3/uL Normal <0.10 [facility] Comment on above: Order Comment: Speci men Type: BLOOD SPECIMENOrdering Facility: [facility] Address: [address] [place] [address] Performed By: #### 5 7021-8 ####[facility] [id number] [place] [address] [place] Immature granulocytes/100 WBC (Bld) 0.3 % Normal [facility] Comment on above: Order Comment: Speci men Type: BLOOD SPECIMENOrdering Facility: [facility] Address: [address] [place] [address] Performed By: #### 5 7021-8 ####[facility] [id number] [place] [address] [place] Lymphocytes (Bld) [#/Vol] 2.20 10*3/uL Normal 1.00-4.00 [facility] Comment on above: Order Comment: Speci men Type: BLOOD SPECIMENOrdering Facility: [facility] Address: [address] [place] [address] Performed By: #### 5 7021-8 ####[facility] [id number] [place] [address] [place] Lymphocytes/100 WBC (Bld) 24.5 % Normal [facility] Comment on above: Order Comment: Speci men Type: BLOOD SPECIMENOrdering Facility: [facility] Address: [address] [place] [address] Performed By: #### 5 7021-8 ####[facility] [id number] [place] [address] [place] MCH (RBC) [Entitic mass] 35.2 pg High 26.0-34.0 [facility] Comment on above: Order Comment: Speci men Type: BLOOD SPECIMENOrdering Facility: [facility] Address: [address] [place] [address] Performed By: #### 5 7021-8 ####[facility] [id number] [place] [address] [place] MCHC (RBC) [Mass/Vol] 35.6 g/dL Normal 30.5-36.0 [facility] Comment on above: Order Comment: Speci men Type: BLOOD SPECIMENOrdering Facility: [facility] Address: [address] [place] [address] Performed By: #### 5 7021-8 ####[facility] [id number] [place] [address] [place] MCV (RBC) [Entitic vol] 98.7 fL Normal 80.0-100.0 [facility] Comment on above: Order Comment: Speci men Type: BLOOD SPECIMENOrdering Facility: [facility] Address: [address] [place] [address] Performed By: #### 5 7021-8 ####[facility] [id number] [place] [address] [place] Monocytes (Bld) [#/Vol] 0.88 10*3/uL High <0.87 [facility] Comment on above: Order Comment: Speci men Type: BLOOD SPECIMENOrdering Facility: [facility] Address: [address] [place] [address] Performed By: #### 5 7021-8 ####[facility] [id number] [place] [address] [place] Monocytes/100 WBC (Bld) 9.8 % Normal [facility] Comment on above: Order Comment: Speci men Type: BLOOD SPECIMENOrdering Facility: [facility] Address: [address] [place] [address] Performed By: #### 5 7021-8 ####[facility] [id number] [place] [address] [place] Neutrophils (Bld) [#/Vol] 5.68 10*3/uL Normal 1.45-7.50 [facility] Comment on above: Order Comment: Speci men Type: BLOOD SPECIMENOrdering Facility: [facility] Address: [address] [place] [address] Performed By: #### 5 7021-8 ####[facility] [id number] [place] [address] [place] Neutrophils/100 WBC (Bld) 63.3 % Normal [facility] Comment on above: Order Comment: Speci men Type: BLOOD SPECIMENOrdering Facility: [facility] Address: [address] [place] [address] Performed By: #### 5 7021-8 ####[facility] [id number] [place] [address] [place] Nucleated RBC (Bld) [#/Vol] 10*3/uL Normal <0.01 [facility] Comment on above: Order Comment: Speci men Type: BLOOD SPECIMENOrdering Facility: [facility] Address: [address] [place] [address] Performed By: #### 5 7021-8 ####[facility] [id number] [place] [address] [place] Nucleated RBC/100 WBC (Bld) [Ratio] 0.0 /100 WBC Normal [facility] Comment on above: Order Comment: Speci men Type: BLOOD SPECIMENOrdering Facility: [facility] Address: [address] [place] [address] Performed By: #### 5 7021-8 ####[facility] [id number] [place] [address] [place] Platelet mean volume (Bld) [Entitic vol] 8.4 fL Low 9.0-12.7 [facility] Comment on above: Order Comment: Speci men Type: BLOOD SPECIMENOrdering Facility: [facility] Address: [address] [place] [address] Performed By: #### 5 7021-8 ####[facility] [id number] [place] [address] [place] Platelets (Bld) [#/Vol] 291 10*3/uL Normal 150-400 [facility] Comment on above: Order Comment: Speci men Type: BLOOD SPECIMENOrdering Facility: [facility] Address: [address] [place] [address] Performed By: #### 5 7021-8 ####[facility] [id number] [place] [address] [place] RBC (Bld) [#/Vol] 3.84 10*6/uL Low 3.90-5.20 [facility] Comment on above: Order Comment: Speci men Type: BLOOD SPECIMENOrdering Facility: [facility] Address: [address] [place] [address] Performed By: #### 5 7021-8 ####[facility] [id number] [address] [place] WBC (Bld) [#/Vol] 8.98 10*3/uL Normal 3.70-11.00 [facility] Comment on above: Order Comment: Speci men Type: BLOOD SPECIMENOrdering Facility: [facility] Address: [address] [place] [address] Performed By: #### 5 7021-8 ####[facility] [id number] [place] [address] [place] CNOVSPon 09-27-2024 CNOVSP Normal [facility] Comprehensive metabolic 2000 panelon 09-27-2024 Albumin [Mass/Vol] 4.3 g/dL 3.9 - 4.9 g/dL [facility] ALP [Catalytic activity/Vol] 133 U/L High 34 - 123 U/L [facility] ALT [Catalytic activity/Vol] 28 U/L 7 - 38 U/L [facility] Anion gap [Moles/Vol] 12 mmol/L 8 - 15 mmol/L [facility] AST [Catalytic activity/Vol] 32 U/L 13 - 35 U/L [facility] Bilirubin [Mass/Vol] 0.2 mg/dL 0.2 - 1 .3 mg/dL [facility] Calcium [Mass/Vol] 9.5 mg/dL 8.5 - 10. 2 mg/dL [facility] Chloride [Moles/Vol] 104 mmol/L 98 - 10 7 mmol/L [facility] CO2 [Moles/Vol] 23 mmol/L 22 - 30 mmol/L [facility] Creatinine [Mass/Vol] 0.92 mg/dL 0.58 - 0.96 mg/dL [facility] GFR/1.73 sq M.predicted among non-blacks MDRD (S/P/Bld) [Vol rate/Area] 73 mL/min/{1.73_m2} - PINF [facility] Comment on above: Estimated Glomerular Filtration Rate (eGFR) is calculated using the 2020 CKD-EPI creatinine equation. This equation utilizes serum creatinine, sex, and age as parameters. The creatinine assay has traceable calibration to isotope dilution-mass spectrometry. Refer to KDIGO guidelines for clinical interpretation. In patients with unstable renal function, e.g. those with acute kidney injury, the eGFR may not accurately reflect actual GFR. Glucose [Mass/Vol] 127 mg/dL High 74 - 99 mg/dL [facility] Comment on above: The English Diabete s Association (ADA) provides guidance for cutoff values for fasting glucose and random glucose. The ADA defines fasting as no caloric intake for at least 8 hours. Fasting plasma glucose results between 100 to 125 mg/dL indicate increased risk for diabetes (prediabetes). Fasting plasma glucose results greater than or equal to 126 mg/dL meet the criteria for diagnosis of diabetes. In the absence of unequivocal hyperglycemia, results should be confirmed by repeat testing. In a patient with classic symptoms of hyperglycemia or hyperglycemic crisis, random plasma glucose results greater than or equal to 200 mg/dL meet the criteria for diagnosis of diabetes. Reference: Standards of Medical Care in Diabetes 2016, English Diabetes Association. Diabetes Care. 2016.39(Suppl 1). Interpretation and review of laboratory results Abnormal [facility] Potassium [Moles/Vol] 4.1 mmol/L 3.7 - 5.1 mmol/L [facility] Protein [Mass/Vol] 7.4 g/dL 6.3 - 8.0 g/dL [facility] Sodium [Moles/Vol] 139 mmol/L 136 - 144 mmol/L [facility] Urea nitrogen [Mass/Vol] 15 mg/dL 7 - 21 mg/dL [facility] Albumin [Mass/Vol] 4.3 g/dL Normal 3.9-4.9 [facility] Comment on above: Order Comment: Speci men Type: BLOOD SPECIMENOrdering Facility: [facility] Address: [address] [place] [address] Performed By: #### 2 4323-8 ####[facility] [id number] [place] [address] [place] ALP [Catalytic activity/Vol] 133 U/L High 34-123 [facility] Comment on above: Order Comment: Speci men Type: BLOOD SPECIMENOrdering Facility: [facility] Address: [address] [place] [address] Performed By: #### 2 4323-8 ####[facility] [id number] [place] [address] [place] ALT [Catalytic activity/Vol] 28 U/L Normal 7-38 [facility] Comment on above: Order Comment: Speci men Type: BLOOD SPECIMENOrdering Facility: [facility] Address: [address] [place] [address] Performed By: #### 2 4323-8 ####[facility] [id number] [place] [address] [place] Anion gap [Moles/Vol] 12 mmol/L Normal 8-15 [facility] Comment on above: Order Comment: Speci men Type: BLOOD SPECIMENOrdering Facility: [facility] Address: [address] [place] [address] Performed By: #### 2 4323-8 ####[facility] [id number] [place] [address] [place] AST [Catalytic activity/Vol] 32 U/L Normal 13-35 [facility] Comment on above: Order Comment: Speci men Type: BLOOD SPECIMENOrdering Facility: [facility] Address: [address] [place] [address] Performed By: #### 2 4323-8 ####[facility] [id number] [place] [address] [place] Bilirubin [Mass/Vol] 0.2 mg/dL Normal 0.2-1.3 [facility] Comment on above: Order Comment: Speci men Type: BLOOD SPECIMENOrdering Facility: [facility] Address: [address] [place] [address] Performed By: #### 2 4323-8 ####[facility] [id number] [place] [address] [place] Calcium [Mass/Vol] 9.5 mg/dL Normal 8.5-10.2 [facility] Comment on above: Order Comment: Speci men Type: BLOOD SPECIMENOrdering Facility: [facility] Address: [address] [place] [address] Performed By: #### 2 4323-8 ####[facility] [id number] [place] [address] [place] Chloride [Moles/Vol] 104 mmol/L Normal 98-107 [facility] Comment on above: Order Comment: Speci men Type: BLOOD SPECIMENOrdering Facility: [facility] Address: [address] [place] [address] Performed By: #### 2 4323-8 ####[facility] [id number] [place] [address] [place] CO2 [Moles/Vol] 23 mmol/L Normal 22-30 [facility] Comment on above: Order Comment: Speci men Type: BLOOD SPECIMENOrdering Facility: [facility] Address: [address] [place] [address] Performed By: #### 2 4323-8 ####[facility] [id number] [place] [address] [place] Creatinine [Mass/Vol] 0.92 mg/dL Normal 0.58-0.96 [facility] Comment on above: Order Comment: Speci men Type: BLOOD SPECIMENOrdering Facility: [facility] Address: [address] [place] [address] Performed By: #### 2 4323-8 ####[facility] [id number] [place] [address] [place] Creatinine and Glomerular filtration rate.predicted panel (S/P/Bld) 73 mL/min/1.73m??? Normal >=60 [facility] Comment on above: Order Comment: Eris staton Type: BLOOD SPECIMENOrdering Facility: [facility] Address: [address] [place] [address] Result Comment: Jina mated Glomerular Filtration Rate (eGFR) is calculated using the 2020 CKD-EPI creatinine equation. This equation utilizes serum creatinine, sex, and age as parameters. The creatinine assay has traceable calibration to isotope dilution-mass spectrometry. Refer to KDIGO guidelines for clinical interpretation. In patients with unstable renal function, e.g. those with acute kidney injury, the eGFR may not accurately reflect actual GFR. Performed By: #### 2 4323-8 ####[facility] [id number] [place] [address] [place] Glucose [Mass/Vol] 127 mg/dL High 74-99 [facility] Comment on above: Order Comment: Eris staton Type: BLOOD SPECIMENOrdering Facility: [facility] Address: [address] [place] [address] Result Comment: The English Diabetes Association (ADA) provides guidance for cutoff values for fasting glucose and random glucose. The ADA defines fasting as no caloric intake for at least 8 hours. Fasting plasma glucose results between 100 to 125 mg/dL indicate increased risk for diabetes (prediabetes).Fasting plasma glucose results greater than or equal to 126 mg/dL meet the criteria for diagnosis of diabetes. In the absence of unequivocal hyperglycemia, results should be confirmed by repeat testing. In a patient with classic symptoms of hyperglycemia or hyperglycemic crisis, random plasma glucose results greater than or equal to 200 mg/dL meet the criteria for diagnosis of diabetes.Reference: Standards of Medical Care in Diabetes 2016, English Diabetes Association. Diabetes Care. 2016.39(Suppl 1). Performed By: #### 2 4323-8 ####[facility] [id number] [place] [address] [place] Potassium [Moles/Vol] 4.1 mmol/L Normal 3.7-5.1 [facility] Comment on above: Order Comment: Speci men Type: BLOOD SPECIMENOrdering Facility: [facility] Address: [address] [place] [address] Performed By: #### 2 4323-8 ####[facility] [id number] [place] [address] [place] Protein [Mass/Vol] 7.4 g/dL Normal 6.3-8.0 [facility] Comment on above: Order Comment: Speci men Type: BLOOD SPECIMENOrdering Facility: [facility] Address: [address] [place] [address] Performed By: #### 2 4323-8 ####[facility] [id number] [place] [address] [place] Sodium [Moles/Vol] 139 mmol/L Normal 136-144 [facility] Comment on above: Order Comment: Speci men Type: BLOOD SPECIMENOrdering Facility: [facility] Address: [address] [place] [address] Performed By: #### 2 4323-8 ####[facility] [id number] [place] [address] [place] Urea nitrogen [Mass/Vol] 15 mg/dL Normal 7-21 [facility] Comment on above: Order Comment: Speci men Type: BLOOD SPECIMENOrdering Facility: [facility] Address: [address] [place] [address] Performed By: #### 2 4323-8 ####[facility] [id number] [place] [address] [place] No Panel Informationon 09-27 Interpretation and review of laboratory results Normal [facility] T4 FREE/FREE THYROXINEon Free T4 [Mass/Vol] 0.9 ng/dL 0.9 - 1.7 ng/dL [facility] T4 Free SerPl-mCncon 025 Free T4 [Mass/Vol] 0.9 ng/dL Normal 0.9-1.7 [facility] Comment on above: Order Comment: Speci men Type: BLOOD SPECIMENOrdering Facility: [facility] Address: [address] [place] [address] Performed By: #### 3 024-7, 3016-3 ####[facility] LABCLIA [id number] [place] [id number] [place] THYROID STIMULATING HORMONEo n 09-27-2024 TSH Qn 1.640 m[IU]/L [facility] TSH SerPl-aCncon 09-27-2024 TSH Qn 1.640 m[IU]/L Normal 0.270-4.200 [facility] Comment on above: Order Comment: Speci men Type: BLOOD SPECIMENOrdering Facility: [facility] Address: [address] [place] [address] Performed By: #### 3 024-7, 3016-3 ####[facility] LABCLIA [id number] [place] [id number] [place] DBT Breast - bilateral diagn ostic for implanton 09-07-2024 IMPRESSION: There is no mammographic evidence of malignancy. 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 Expected postoperative appearance is noted. This will serve as the patient's new baseline exam following surgery. Annual mammographic evaluation is recommended or sooner if clinically indicated. The patient was informed of the findings and recommendations. Return to annual screening mammogram is recommended. BI-RADS Category 2: Benign Interpreting Radiologist: Andrae Loza M.D. FACR, FSBI Electronically signed on: 09/07/2024 Breakfast Cook: LYDIA Transcribe Date/Time: Sep 07 2024 9:10A Dictated by : ANDRAE LOZA MD This examination was interpreted and the report reviewed and electronically signed by: ANDRAE LOZA MD on Sep 07 2024 9:44AM [facility] * * *Final Report* * * DATE OF EXAM: Sep 07 2024 9:26AM WANAD 0627 - CATHY KATI PICKARD / PROCEDURE REASON: Z98.890-S/P lumpectomy, right breast * * * * Physician Interpretation * * * * [facility] [address] [id number] #[id number] - CATHY DIAG W EDWARDO SHYLA HISTORY: Patient is 54 years old and is seen for diagnostic evaluation and short term follow-up following RIGHT breast conserving therapy for invasive ductal carcinoma diagnosed on a baseline mammogram from 09/23/2023. The patient has a history of lung cancer. COMPARISON STUDIES: The present examination has been compared to prior imaging studies dated 09/23/2023 (mammogram), 10/27/2023 (ultrasound), 11/12/2023 (mammogram) and 12/29/2023 (mammogram). MAMMOGRAM TECHNIQUE: The study was acquired using full field digital technology and interpreted from soft copy. Digital Breast Tomosynthesis (DBT) images were obtained and used to assist in the interpretation of this examination. Computer-aided detection was utilized by the radiologist in the interpretation of this examination. MAMMOGRAM FINDINGS: The breasts are heterogeneously dense, which may obscure small masses. There are post-operative and post-radiation changes in the upper outer quadrant of the RIGHT breast, posterior depth. Four surgical clips are noted in the primary surgical region of the upper outer quadrant RIGHT breast. The visualized axilla is negative following surgical intervention. 2 surgical clips are visualized at the edge of the axilla following prior surgery. No suspicious findings are noted on the LEFT. No suspicious masses, calcifications or other abnormalities are seen in either breast. [facility]/07/2024 * * *Final Report* * * DATE OF EXAM: Sep 07 2024 9:26AM WANDA 0627 - CATHY DIAG W EDWARDO SHYLA / PROCEDURE REASON: Z98.890-S/P lumpectomy, right breast * * * * Physician Interpretation * * * * [facility] [address] [id number] #[id number] - CATHY DIAG W EDWARDO SHYLA HISTORY: Patient is 54 years old and is seen for diagnostic evaluation and short term follow-up following RIGHT breast conserving therapy for invasive ductal carcinoma diagnosed on a baseline mammogram from 09/23/2023. The patient has a history of lung cancer. COMPARISON STUDIES: The present examination has been compared to prior imaging studies dated 09/23/2023 (mammogram), 10/27/2023 (ultrasound), 11/12/2023 (mammogram) and 12/29/2023 (mammogram). MAMMOGRAM TECHNIQUE: The study was acquired using full field digital technology and interpreted from soft copy. Digital Breast Tomosynthesis (DBT) images were obtained and used to assist in the interpretation of this examination. Computer-aided detection was utilized by the radiologist in the interpretation of this examination. MAMMOGRAM FINDINGS: The breasts are heterogeneously dense, which may obscure small masses. There are post-operative and post-radiation changes in the upper outer quadrant of the RIGHT breast, posterior depth. Four surgical clips are noted in the primary surgical region of the upper outer quadrant RIGHT breast. The visualized axilla is negative following surgical intervention. 2 surgical clips are visualized at the edge of the axilla following prior surgery. No suspicious findings are noted on the LEFT. No suspicious masses, calcifications or other abnormalities are seen in either breast. IMPRESSION IMPRESSION: There is no mammographic evidence of malignancy. 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 Expected postoperative appearance is noted. This will serve as the patient's new baseline exam following surgery. Annual mammographic evaluation is recommended or sooner if clinically indicated. The patient was informed of the findings and recommendations. Return to annual screening mammogram is recommended. BI-RADS Category 2: Benign Interpreting Radiologist: Andrae Loza M.D. FACR, FSBI Electronically signed on: 09/07/2024 Breakfast Cook: LYDIA Transcribe Date/Time: Sep 07 2024 9:10A Dictated by : ANDRAE LOZA MD This examination was interpreted and the report reviewed and electronically signed by: ANDRAE LOZA MD on Sep 07 2024 9:44AM EST [facility] Radiology Study observation (narrative) [facility] DBT Breast - bilateral diagn ostic for implantOrdered By: [facility] Provider on 09-07-2024 [facility] CATHY RIBEIROG W EDWARDO BILon 2024 CATHY DIAG W EDWARDO SHYLA * * *Final Report* * * DATE OF EXAM: Sep 07 2024 9:26AM WANDA 0627 - CATHY Ford EDWARDO SHYLA / PROCEDURE REASON: Z98.890-S/P lumpectomy, right breast * * * * Physician Interpretation * * * * [place] [address] #[id number] - CATHY Ford EDWARDO SHYLA HISTORY: Patient is 54 years old and is seen for diagnostic evaluation and short term follow-up following RIGHT breast conserving therapy for invasive ductal carcinoma diagnosed on a baseline mammogram from 09/23/2023. The patient has a history of lung cancer. COMPARISON STUDIES: The present examination has been compared to prior imaging studies dated 09/23/2023 (mammogram), 10/27/2023 (ultrasound), 11/12/2023 (mammogram) and 12/29/2023 (mammogram). MAMMOGRAM TECHNIQUE: The study was acquired using full field digital technology and interpreted from soft copy. Digital Breast Tomosynthesis (DBT) images were obtained and used to assist in the interpretation of this examination. Computer-aided detection was utilized by the radiologist in the interpretation of this examination. MAMMOGRAM FINDINGS: The breasts are heterogeneously dense, which may obscure small masses. There are post-operative and post-radiation changes in the upper outer quadrant of the RIGHT breast, posterior depth. Four surgical clips are noted in the primary surgical region of the upper outer quadrant RIGHT breast. The visualized axilla is negative following surgical intervention. 2 surgical clips are visualized at the edge of the axilla following prior surgery. No suspicious findings are noted on the LEFT. No suspicious masses, calcifications or other abnormalities are seen in either breast. IMPRESSION: There is no mammographic evidence of malignancy. 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 Expected postoperative appearance is noted. This will serve as the patient's new baseline exam following surgery. Annual mammographic evaluation is recommended or sooner if clinically indicated. The patient was informed of the findings and recommendations. Return to annual screening mammogram is recommended. BI-RADS Category 2: Benign Interpreting Radiologist: Andrae Loza M.D. FACR, FSBI Electronically signed on: 09/07/2024 Breakfast Cook: LYDIA Transcribe Date/Time: Sep 07 2024 9:10A Dictated by : ANDRAE LOZA MD This examination was interpreted and the report reviewed and electronically signed by: ANDRAE LOZA MD on Sep 07 2024 9:44AM EST [id number] Normal [facility] CBC W Auto Differential pane l (Bld)on 09-03-2024 Basophils (Bld) [#/Vol] 0.06 10*3/uL [facility] Basophils/100 WBC (Bld) 0.8 % [facility] Differential cell count method Nom (Bld) Auto [facility] Eosinophils (Bld) [#/Vol] 0.16 10*3/uL [facility] Eosinophils/100 WBC (Bld) 2.0 % [facility] Erythrocyte distribution width (RBC) [Ratio] 13.0 % 11.5 - 15.0 % [facility] Hematocrit (Bld) [Volume fraction] 40.9 % 36.0 - 46.0 % [facility] Hemoglobin (Bld) [Mass/Vol] 14.4 g/dL 11.5 - 15.5 g/dL [facility] Immature granulocytes (Bld) [#/Vol] [facility] Immature granulocytes/100 WBC (Bld) 0.3 % [facility] Interpretation and review of laboratory results Abnormal [facility] Lymphocytes (Bld) [#/Vol] 2.92 10*3/uL [facility] Lymphocytes/100 WBC (Bld) 37.3 % [facility] MCH (RBC) [Entitic mass] 34.9 pg High 26.0 - 34.0 pg [facility] MCHC (RBC) [Mass/Vol] 35.2 g/dL 30.5 - 36.0 g/dL [facility] MCV (RBC) [Entitic vol] 99.0 fL 80.0 - 100.0 fL [facility] Monocytes (Bld) [#/Vol] 0.51 10*3/uL [facility] Monocytes/100 WBC (Bld) 6.5 % [facility] Neutrophils (Bld) [#/Vol] 4.15 10*3/uL [facility] Neutrophils/100 WBC (Bld) 53.1 % [facility] Nucleated RBC (Bld) [#/Vol] NINF [facility] Nucleated RBC/100 WBC (Bld) [Ratio] 0.0 % /100 WBC [facility] Platelet mean volume (Bld) [Entitic vol] 9.0 fL 9.0 - 12.7 fL [facility] Platelets (Bld) [#/Vol] 259 10*3/uL [facility] RBC (Bld) [#/Vol] 4.13 10*6/uL 3.90 - 5.2 0 m/uL [facility] WBC (Bld) [#/Vol] 7.82 10*3/uL [facility] Basophils (Bld) [#/Vol] 0.06 10*3/uL Normal <0.11 [facility] Comment on above: Order Comment: Speci men Type: BLOOD SPECIMENOrdering Facility: [facility] Address: [address] [place] [address] Performed By: #### 5 7021-8 ####[facility] [id number] [place] [address] [place] Basophils/100 WBC (Bld) 0.8 % Normal [facility] Comment on above: Order Comment: Speci men Type: BLOOD SPECIMENOrdering Facility: [facility] Address: [address] [place] [address] Performed By: #### 5 7021-8 ####[facility] [id number] [place] [address] [place] Differential cell count method Nom (Bld) Auto Normal [facility] Comment on above: Order Comment: Speci men Type: BLOOD SPECIMENOrdering Facility: [facility] Address: [address] [place] [address] Performed By: #### 5 7021-8 ####[facility] [id number] [place] [address] [place] Eosinophils (Bld) [#/Vol] 0.16 10*3/uL Normal <0.46 [facility] Comment on above: Order Comment: Speci men Type: BLOOD SPECIMENOrdering Facility: [facility] Address: [address] [place] [address] Performed By: #### 5 7021-8 ####[facility] [id number] [place] [address] [place] Eosinophils/100 WBC (Bld) 2.0 % Normal [facility] Comment on above: Order Comment: Speci men Type: BLOOD SPECIMENOrdering Facility: [facility] Address: [address] [place] [address] Performed By: #### 5 7021-8 ####[facility] [id number] [place] [address] [place] Erythrocyte distribution width (RBC) [Ratio] 13.0 % Normal 11.5-15.0 [facility] Comment on above: Order Comment: Speci men Type: BLOOD SPECIMENOrdering [facility] Address: [address] [place] [address] Performed By: #### 5 7021-8 ####[facility] [id number] [place] [address] [place] Hematocrit (Bld) [Volume fraction] 40.9 % Normal 36.0-46.0 [facility] Comment on above: Order Comment: Speci men Type: BLOOD SPECIMENOrdering Facility: [facility] Address: [address] [place] [address] Performed By: #### 5 7021-8 ####[facility] [id number] [place] [address] [place] Hemoglobin (Bld) [Mass/Vol] 14.4 g/dL Normal 11.5-15.5 [facility] Comment on above: Order Comment: Speci men Type: BLOOD SPECIMENOrdering Facility: [facility] Address: [address] [place] [address] Performed By: #### 5 7021-8 ####[facility] [id number] [place] [address] [place] Immature granulocytes (Bld) [#/Vol] 10*3/uL Normal <0.10 [facility] Comment on above: Order Comment: Speci men Type: BLOOD SPECIMENOrdering Facility: [facility] Address: [address] [place] [address] Performed By: #### 5 7021-8 ####[facility] [id number] [place] [address] [place] Immature granulocytes/100 WBC (Bld) 0.3 % Normal [facility] Comment on above: Order Comment: Speci men Type: BLOOD SPECIMENOrdering Facility: [facility] Address: [address] [place] [address] Performed By: #### 5 7021-8 ####[facility] [id number] [place] [address] [place] Lymphocytes (Bld) [#/Vol] 2.92 10*3/uL Normal 1.00-4.00 [facility] Comment on above: Order Comment: Speci men Type: BLOOD SPECIMENOrdering Facility: [facility] Address: [address] [place] [address] Performed By: #### 5 7021-8 ####[facility] [place] [id number] [place] [address] [place] Lymphocytes/100 WBC (Bld) 37.3 % Normal [facility] Comment on above: Order Comment: Speci men Type: BLOOD SPECIMENOrdering Facility: [facility] Address: [address] [place] [address] Performed By: #### 5 7021-8 ####[facility] [place] [id number] [place] [address] [place] MCH (RBC) [Entitic mass] 34.9 pg High 26.0-34.0 [facility] Comment on above: Order Comment: Speci men Type: BLOOD SPECIMENOrdering Facility: [facility] Address: [address] [place] [address] Performed By: #### 5 7021-8 ####[facility] [id number] [place] [address] [place] MCHC (RBC) [Mass/Vol] 35.2 g/dL Normal 30.5-36.0 [facility] Comment on above: Order Comment: Speci men Type: BLOOD SPECIMENOrdering Facility: [facility] Address: [address] [place] [address] Performed By: #### 5 7021-8 ####[facility] [place] [id number] [place] [address] [place] MCV (RBC) [Entitic vol] 99.0 fL Normal 80.0-100.0 [facility] Comment on above: Order Comment: Speci men Type: BLOOD SPECIMENOrdering Facility: [facility] Address: [address] [place] [address] Performed By: #### 5 7021-8 ####[facility] [id number] [place] [address] [place] Monocytes (Bld) [#/Vol] 0.51 10*3/uL Normal <0.87 [facility] Comment on above: Order Comment: Speci men Type: BLOOD SPECIMENOrdering Facility: [facility] Address: [address] [place] [address] Performed By: #### 5 7021-8 ####[facility] [id number] [place] [address] [place] Monocytes/100 WBC (Bld) 6.5 % Normal [facility] Comment on above: Order Comment: Speci men Type: BLOOD SPECIMENOrdering Facility: [facility] Address: [address] [place] [address] Performed By: #### 5 7021-8 ####[facility] [place] [id number] [place] [address] [place] Neutrophils (Bld) [#/Vol] 4.15 10*3/uL Normal 1.45-7.50 [facility] Comment on above: Order Comment: Speci men Type: BLOOD SPECIMENOrdering Facility: [facility] Address: [address] [place] [address] Performed By: #### 5 7021-8 ####[facility] [id number] [place] [address] [place] Neutrophils/100 WBC (Bld) 53.1 % Normal [facility] Comment on above: Order Comment: Speci men Type: BLOOD SPECIMENOrdering Facility: [facility] Address: [address] [place] [address] Performed By: #### 5 7021-8 ####[facility] [id number] [place] [address] [place] Nucleated RBC (Bld) [#/Vol] 10*3/uL Normal <0.01 [facility] Comment on above: Order Comment: Speci men Type: BLOOD SPECIMENOrdering Facility: [facility] Address: [address] [place] [address] Performed By: #### 5 7021-8 ####[facility] [id number] [place] [address] [place] Nucleated RBC/100 WBC (Bld) [Ratio] 0.0 /100 WBC Normal [facility] Comment on above: Order Comment: Speci men Type: BLOOD SPECIMENOrdering Facility: [facility] Address: [address] [place] [address] Performed By: #### 5 7021-8 ####[facility] [id number] [place] [address] [place] Platelet mean volume (Bld) [Entitic vol] 9.0 fL Normal 9.0-12.7 [facility] Comment on above: Order Comment: Speci men Type: BLOOD SPECIMENOrdering Facility: [facility] Address: [address] [place] [address] Performed By: #### 5 7021-8 ####[facility] [id number] [place] [address] [place] Platelets (Bld) [#/Vol] 259 10*3/uL Normal 150-400 [facility] Comment on above: Order Comment: Speci men Type: BLOOD SPECIMENOrdering Facility: [facility] Address: [address] [place] [address] Performed By: #### 5 7021-8 ####[facility] [id number] [place] [address] [place] RBC (Bld) [#/Vol] 4.13 10*6/uL Normal 3.90-5.20 [facility] Comment on above: Order Comment: Speci men Type: BLOOD SPECIMENOrdering Facility: [facility] Address: [address] [place] [address] Performed By: #### 5 7021-8 ####[facility] [id number] [place] [address] [place] WBC (Bld) [#/Vol] 7.82 10*3/uL Normal 3.70-11.00 [facility] Comment on above: Order Comment: Speci men Type: BLOOD SPECIMENOrdering Facility: [facility] Address: [address] [place] [address] Performed By: #### 5 7021-8 ####[facility] [id number] [place] [address] [place] CNOVSPon 09-03-2024 CNOVSP Normal [facility] metabolic 2000 panelon 09-03-2024 Albumin [Mass/Vol] 4.7 g/dL 3.9 - 4.9 g/dL [facility] ALP [Catalytic activity/Vol] 133 U/L High 34 - 123 U/L [facility] ALT [Catalytic activity/Vol] 24 U/L 7 - 38 U/L [facility] Anion gap [Moles/Vol] 12 mmol/L 8 - 15 mmol/L [facility] AST [Catalytic activity/Vol] 32 U/L 13 - 35 U/L [facility] Bilirubin [Mass/Vol] 0.3 mg/dL 0.2 - 1 .3 mg/dL [facility] Calcium [Mass/Vol] 9.7 mg/dL 8.5 - 10. 2 mg/dL [facility] Chloride [Moles/Vol] 103 mmol/L 98 - 10 7 mmol/L [facility] CO2 [Moles/Vol] 25 mmol/L 22 - 30 mmol/L [facility] Creatinine [Mass/Vol] 0.85 mg/dL 0.58 - 0.96 mg/dL [facility] GFR/1.73 sq M.predicted among non-blacks MDRD (S/P/Bld) [Vol rate/Area] 81 mL/min/{1.73_m2} - PINF [facility] Comment on above: Estimated Glomerular Filtration Rate (eGFR) is calculated using the 2020 CKD-EPI creatinine equation. This equation utilizes serum creatinine, sex, and age as parameters. The creatinine assay has traceable calibration to isotope dilution-mass spectrometry. Refer to KDIGO guidelines for clinical interpretation. In patients with unstable renal function, e.g. those with acute kidney injury, the eGFR may not accurately reflect actual GFR. Glucose [Mass/Vol] 90 mg/dL 74 - 99 mg/dL [facility] Comment on above: The English Diabete s Association (ADA) provides guidance for cutoff values for fasting glucose and random glucose. The ADA defines fasting as no caloric intake for at least 8 hours. Fasting plasma glucose results between 100 to 125 mg/dL indicate increased risk for diabetes (prediabetes). Fasting plasma glucose results greater than or equal to 126 mg/dL meet the criteria for diagnosis of diabetes. In the absence of unequivocal hyperglycemia, results should be confirmed by repeat testing. In a patient with classic symptoms of hyperglycemia or hyperglycemic crisis, random plasma glucose results greater than or equal to 200 mg/dL meet the criteria for diagnosis of diabetes. Reference: Standards of Medical Care in Diabetes 2016, English Diabetes Association. Diabetes Care. 2016.39(Suppl 1). Interpretation and review of laboratory results Abnormal [facility] Potassium [Moles/Vol] 4.1 mmol/L 3.7 - 5.1 mmol/L [facility] Protein [Mass/Vol] 7.7 g/dL 6.3 - 8.0 g/dL [facility] Sodium [Moles/Vol] 140 mmol/L 136 - 144 mmol/L [facility] Urea nitrogen [Mass/Vol] 14 mg/dL 7 - 21 mg/dL [facility] Albumin [Mass/Vol] 4.7 g/dL Normal 3.9-4.9 [facility] Comment on above: Order Comment: Speci men Type: BLOOD SPECIMENOrdering Facility: [facility] Address: [address] [place] [address] Performed By: #### 2 4323-8 ####[facility] [place] [id number] [place] [address] [place] ALP [Catalytic activity/Vol] 133 U/L High 34-123 [facility] Comment on above: Order Comment: Speci men Type: BLOOD SPECIMENOrdering Facility: [facility] Address: [address] [place] [address] Performed By: #### 2 4323-8 ####[facility] [place] [id number] [place] [address] [place] ALT [Catalytic activity/Vol] 24 U/L Normal 7-38 [facility] Comment on above: Order Comment: Speci men Type: BLOOD SPECIMENOrdering Facility: [facility] Address: [address] [place] [address] Performed By: #### 2 4323-8 ####[facility] [id number] [place] [address] [place] Anion gap [Moles/Vol] 12 mmol/L Normal 8-15 [facility] Comment on above: Order Comment: Speci men Type: BLOOD SPECIMENOrdering Facility: [facility] Address: [address] [place] [address] Performed By: #### 2 4323-8 ####[facility] [id number] [place] [address] [place] AST [Catalytic activity/Vol] 32 U/L Normal 13-35 [facility] Comment on above: Order Comment: Speci men Type: BLOOD SPECIMENOrdering Facility: [facility] Address: [address] [place] [address] Performed By: #### 2 4323-8 ####[facility] [id number] [place] [address] [place] Bilirubin [Mass/Vol] 0.3 mg/dL Normal 0.2-1.3 [facility] Comment on above: Order Comment: Speci men Type: BLOOD SPECIMENOrdering Facility: [facility] Address: [address] [place] [address] Performed By: #### 2 4323-8 ####[facility] [place] [id number] [place] [address] [place] Calcium [Mass/Vol] 9.7 mg/dL Normal 8.5-10.2 [facility] Comment on above: Order Comment: Speci men Type: BLOOD SPECIMENOrdering Facility: [facility] Address: [address] [place] [address] Performed By: #### 2 4323-8 ####[facility] [id number] [place] [address] [place] Chloride [Moles/Vol] 103 mmol/L Normal 98-107 [facility] Comment on above: Order Comment: Speci men Type: BLOOD SPECIMENOrdering Facility: [facility] Address: [address] [place] [address] Performed By: #### 2 4323-8 ####[facility] [id number] [place] [address] [place] CO2 [Moles/Vol] 25 mmol/L Normal 22-30 [facility] Comment on above: Order Comment: Speci men Type: BLOOD SPECIMENOrdering Facility: [facility] Address: [address] [place] [address] Performed By: #### 2 4323-8 ####[facility] [id number] [place] [address] [place] Creatinine [Mass/Vol] 0.85 mg/dL Normal 0.58-0.96 [facility] Comment on above: Order Comment: Speci men Type: BLOOD SPECIMENOrdering Facility: [facility] Address: [address] [place] [address] Performed By: #### 2 4323-8 ####[facility] [id number] [place] [address] [place] Creatinine and Glomerular filtration rate.predicted panel (S/P/Bld) 81 mL/min/1.73m??? Normal >=60 [facility] Comment on above: Order Comment: Speci men Type: BLOOD SPECIMENOrdering Facility: [facility] Address: [address] [place] [address] Result Comment: Jina mated Glomerular Filtration Rate (eGFR) is calculated using the 2020 CKD-EPI creatinine equation. This equation utilizes serum creatinine, sex, and age as parameters. The creatinine assay has traceable calibration to isotope dilution-mass spectrometry. Refer to KDIGO guidelines for clinical interpretation. In patients with unstable renal function, e.g. those with acute kidney injury, the eGFR may not accurately reflect actual GFR. Performed By: #### 2 4323-8 ####[facility] [id number] [place] [address] [place] Glucose [Mass/Vol] 90 mg/dL Normal 74-99 [facility] Comment on above: Order Comment: Speci men Type: BLOOD SPECIMENOrdering Facility: [facility] Address: [address] [place] [address] Result Comment: The English Diabetes Association (ADA) provides guidance for cutoff values for fasting glucose and random glucose. The ADA defines fasting as no caloric intake for at least 8 hours. Fasting plasma glucose results between 100 to 125 mg/dL indicate increased risk for diabetes (prediabetes).Fasting plasma glucose results greater than or equal to 126 mg/dL meet the criteria for diagnosis of diabetes. In the absence of unequivocal hyperglycemia, results should be confirmed by repeat testing. In a patient with classic symptoms of hyperglycemia or hyperglycemic crisis, random plasma glucose results greater than or equal to 200 mg/dL meet the criteria for diagnosis of diabetes.Reference: Standards of Medical Care in Diabetes 2016, English Diabetes Association. Diabetes Care. 2016.39(Suppl 1). Performed By: #### 2 4323-8 ####[facility] [id number] [place] [address] [place] Potassium [Moles/Vol] 4.1 mmol/L Normal 3.7-5.1 [facility] Comment on above: Order Comment: Speci men Type: BLOOD SPECIMENOrdering Facility: [facility] Address: [address] [place] [address] Performed By: #### 2 4323-8 ####[facility] [place] [id number] [place] [address] [place] Protein [Mass/Vol] 7.7 g/dL Normal 6.3-8.0 [facility] Comment on above: Order Comment: Speci men Type: BLOOD SPECIMENOrdering Facility: [facility] Address: [address] [place] [address] Performed By: #### 2 4323-8 ####[facility] [id number] [place] [address] [place] Sodium [Moles/Vol] 140 mmol/L Normal 136-144 [facility] Comment on above: Order Comment: Speci men Type: BLOOD SPECIMENOrdering Facility: [facility] Address: [address] [place] [address] Performed By: #### 2 4323-8 ####[facility] [id number] [place] [id number] [place] Urea nitrogen [Mass/Vol] 14 mg/dL Normal 7-21 [facility] Comment on above: Order Comment: Speci men Type: BLOOD SPECIMENOrdering Facility: [facility] Address: [address] [place] [address] Performed By: #### 2 4323-8 ####[facility] [id number] [place] [address] [place] No Panel Informationon 09-03 Interpretation and review of laboratory results Normal [facility] T4 FREE/FREE THYROXINEon Free T4 [Mass/Vol] 0.9 ng/dL 0.9 - 1.7 ng/dL [facility] T4 Free SerPl-mCncon 025 Free T4 [Mass/Vol] 0.9 ng/dL Normal 0.9-1.7 [facility] Comment on above: Order Comment: Speci men Type: BLOOD SPECIMENOrdering Facility: [facility] Address: [address] [place] [address] Performed By: #### 3 016-3, 3024-7 ####[facility] [id number] [place] [address] [place] THYROID STIMULATING HORMONEo n 09-03-2024 TSH Qn 1.320 m[IU]/L [facility] TSH SerPl-aCncon 09-03-2024 TSH Qn 1.320 m[IU]/L Normal 0.270-4.200 [facility] Comment on above: Order Comment: Speci men Type: BLOOD SPECIMENOrdering Facility: [facility] Address: [address] [place] [address] Performed By: #### 3 016-3, 3024-7 ####[facility] [id number] [place] [address] [place] [address] CHEST WO IVCONon 08-26-[address] CHEST WO IVCON * * *Final Report* * * DATE OF EXAM: Aug 26 2024 4:06PM [facility] [place] [place] CHEST WO IVCON / PROCEDURE REASON: C34.90-Adenocarcinoma of lung, stage 4, unspecified laterality (HCC) * * * * Physician Interpretation * * * * EXAMINATION: CHEST CT WITHOUT CONTRAST CLINICAL HISTORY: Lung carcinoma. Technique: Spiral CT acquisition of the chest from the thoracic inlet to the upper abdomen without contrast. MQ: CTCWO_6 CT Radiation dose: Integrated Dose-length product (DLP) for this visit = 224 mGy*cm CT Dose Reduction Employed: Automated exposure control(AEC) and iterative recon Comparison: 06/01/2024 RESULT: Limitations: None. Lines, tubes, and devices: None. Lung parenchyma and airways: Emphysema mild, diffuse bronchiectasis. There is biapical fibrosis. Persistent consolidative opacity within the apicoposterior segment of the left upper lobe and lingula, when compared the prior examination, which may relate to post therapy change; however, continued interval surveillance is recommended. Atelectasis is seen within the right middle lobe. Stable groundglass attenuation nodular opacity is seen within the anterior segment right upper lobe, measuring approximately 1.7 cm (series 2, image #69). Other groundglass attenuation nodule opacities are also stable. Pleural space: There is no pleural effusion. Lower neck, lymph nodes, and mediastinum: Again seen are surgical clips within the right lateral breast and right axilla. There are no pathologically enlarged axillary, mediastinal, or hilar lymph nodes. Heart, pericardium, and thoracic vessels: Atherosclerotic calcifications are present within thoracic aorta. Fatty hypertrophy of the intra-atrial septum. The heart is normal in size. Stable small pericardial effusion, when compared to the prior examination. Bones and soft tissues: There is scoliosis and multilevel degenerative change seen within the thoracic spine. A few presumed bone islands are seen in the osseous structures. Loose bodies about the left shoulder. Mild scoliosis of thoracic spine, convex to the left. Vacuum disc phenomena is seen at multiple levels. Stable mild compression deformity seen involving the T11 vertebral body, when compared to the prior examination. Again seen is a nonunited fracture involving the left lateral ninth rib. Upper abdomen: Nonspecific wall thickening of the stomach likely relates to underdistention. A few small splenules are incidentally noted within left upper quadrant. There is mild, nonspecific bilateral perinephric fat stranding. IMPRESSION: 1. Persistent consolidative opacity within the apicoposterior segment of the left upper lobe and lingula, when compared to the prior examination, which may relate to post therapy change; however, continued interval surveillance is recommended. 2. Stable groundglass attenuation nodular opacity is within the right upper lobe, measuring up to 1.7 cm. Other groundglass attenuation nodular opacities are also stable. 3. No mili lymphadenopathy is seen within the chest. 4. Stable small pericardial effusion. Breakfast Cook: [facility] HOSPITALJeffery Transcribe Date/Time: Aug 29 2024 8:33A Dictated by : BISHOP GUY MD This examination was interpreted and the report reviewed and electronically signed by: BISHOP GUY MD on Aug 29 2024 8:39AM EST [id number] [facility] CNOVon 07-29-2024 CNOV Normal [facility] MR Brain WO and W contrast I Von 07-29-2024 IMPRESSION: No evidence of residual/recurrent enhancement at the left temporal lobe lesion. No new lesions are identified. Mastoid effusions. Breakfast Cook: [facility] Transcribe Date/Time: Jul 29 2024 11:43A Dictated by : WANDA CORDERO MD This examination was interpreted and the report reviewed and electronically signed by: WANDA CORDERO MD on Jul 29 2024 11:50AM [facility] * * *Final Report* * * DATE OF EXAM: Jul 29 2024 11:13AM [facility] 0295 - MRI BRAIN WO/W IVCON / PROCEDURE REASON: C79.31-Metastasis to brain (HCC) * * * * Physician Interpretation * * * * EXAMINATION: MRI BRAIN WO/W IVCON CLINICAL HISTORY: Metastasis to brain (HCC) TECHNIQUE: Routine brain MRI protocol without and with contrast including diffusion images. MQ: MRBWOW_2 Contrast: 15 mL Dotarem IV COMPARISON: MRI brain most recently 04/22/2024 RESULT: Acute Change: There is no evidence of restricted diffusion to suggest an acute infarct. Hemorrhage: No evidence of prior parenchymal hemorrhage on the susceptibility weighted images. Mass Lesion/ Mass Effect: No significant residual lesion at the left superior temporal sulcus compared with the recent prior studies. No new enhancing lesions are identified. No perfusion imaging is negative. No intracranial mass effect. Chronic Change: The white matter is within normal limits of signal intensity for age. Parenchyma: No significant volume loss for age. The brain parenchyma is otherwise within normal limits of signal intensity and morphology. Ventricles: Normal caliber and morphology. Skull Base: Hypothalamic and pituitary region are grossly normal. Craniocervical junction is normal. No significant marrow replacement process. Vasculature: Major intracranial arterial structures, and dural venous sinuses show typical flow void, suggesting patency by spin echo criteria. Other: Bilateral mastoid effusions left greater than right, increased compared with prior. [facility] Provider, [facility] - 07/29/2024 * * *Final Report* * * DATE OF EXAM: Jul 29 2024 11:13AM [facility] 0295 - MRI BRAIN WO/W IVCON / PROCEDURE REASON: C79.31-Metastasis to brain (HCC) * * * * Physician Interpretation * * * * EXAMINATION: MRI BRAIN WO/W IVCON CLINICAL HISTORY: Metastasis to brain (HCC) TECHNIQUE: Routine brain MRI protocol without and with contrast including diffusion images. MQ: MRBWOW_2 Contrast: 15 mL Dotarem IV COMPARISON: MRI brain most recently 04/22/2024 RESULT: Acute Change: There is no evidence of restricted diffusion to suggest an acute infarct. Hemorrhage: No evidence of prior parenchymal hemorrhage on the susceptibility weighted images. Mass Lesion/ Mass Effect: No significant residual lesion at the left superior temporal sulcus compared with the recent prior studies. No new enhancing lesions are identified. No perfusion imaging is negative. No intracranial mass effect. Chronic Change: The white matter is within normal limits of signal intensity for age. Parenchyma: No significant volume loss for age. The brain parenchyma is otherwise within normal limits of signal intensity and morphology. Ventricles: Normal caliber and morphology. Skull Base: Hypothalamic and pituitary region are grossly normal. Craniocervical junction is normal. No significant marrow replacement process. Vasculature: Major intracranial arterial structures, and dural venous sinuses show typical flow void, suggesting patency by spin echo criteria. Other: Bilateral mastoid effusions left greater than right, increased compared with prior. IMPRESSION IMPRESSION: No evidence of residual/recurrent enhancement at the left temporal lobe lesion. No new lesions are identified. Mastoid effusions. Breakfast Cook: EVGENY Transcribe Date/Time: Jul 29 2024 11:43A Dictated by : WANDA CORDERO MD This examination was interpreted and the report reviewed and electronically signed by: WANDA CORDERO MD on Jul 29 2024 11:50AM EST [facility] Radiology Study observation (narrative) [facility] MR Brain WO and W contrast I VOrdered By: Ccf Provider on 07-29-2024 [facility] MRI BRAIN WO/W IVCONon 07-29 MRI BRAIN WO/W IVCON * * *Final Report* * * DATE OF EXAM: Jul 29 2024 11:13AM [facility] 0295 - MRI BRAIN WO/W IVCON / PROCEDURE REASON: C79.31-Metastasis to brain (HCC) * * * * Physician Interpretation * * * * EXAMINATION: MRI BRAIN WO/W IVCON CLINICAL HISTORY: Metastasis to brain (HCC) TECHNIQUE: Routine brain MRI protocol without and with contrast including diffusion images. MQ: MRBWOW_2 Contrast: 15 mL Dotarem IV COMPARISON: MRI brain most recently 04/22/2024 RESULT: Acute Change: There is no evidence of restricted diffusion to suggest an acute infarct. Hemorrhage: No evidence of prior parenchymal hemorrhage on the susceptibility weighted images. Mass Lesion/ Mass Effect: No significant residual lesion at the left superior temporal sulcus compared with the recent prior studies. No new enhancing lesions are identified. No perfusion imaging is negative. No intracranial mass effect. Chronic Change: The white matter is within normal limits of signal intensity for age. Parenchyma: No significant volume loss for age. The brain parenchyma is otherwise within normal limits of signal intensity and morphology. Ventricles: Normal caliber and morphology. Skull Base: Hypothalamic and pituitary region are grossly normal. Craniocervical junction is normal. No significant marrow replacement process. Vasculature: Major intracranial arterial structures, and dural venous sinuses show typical flow void, suggesting patency by spin echo criteria. Other: Bilateral mastoid effusions left greater than right, increased compared with prior. IMPRESSION: No evidence of residual/recurrent enhancement at the left temporal lobe lesion. No new lesions are identified. Mastoid effusions. Breakfast Cook: EVGENY Transcribe Date/Time: Jul 29 2024 11:43A Dictated by : WANDA CORDERO MD This examination was interpreted and the report reviewed and electronically signed by: WANDA CORDERO MD on Jul 29 2024 11:50AM EST [id number] [facility] CNOVon 07-23-2024 CNOV Normal [facility] CBC W Auto Differential pane l (Bld)on 07-19-2024 Erythrocyte distribution width (RBC) [Ratio] 13.8 % 11.5 - 15.0 % [facility] Hematocrit (Bld) [Volume fraction] 37.3 % 36.0 - 46.0 % [facility] Hemoglobin (Bld) [Mass/Vol] 12.7 g/dL 11.5 - 15.5 g/dL [facility] Immature granulocytes (Bld) [#/Vol] [facility] Interpretation and review of laboratory results Abnormal [facility] MCH (RBC) [Entitic mass] 35.0 pg High 26.0 - 34.0 pg [facility] MCHC (RBC) [Mass/Vol] 34.0 g/dL 30.5 - 36.0 g/dL [facility] MCV (RBC) [Entitic vol] 102.8 fL High 80.0 - 100.0 fL [facility] Neutrophils (Bld) [#/Vol] 4.01 10*3/uL [facility] Nucleated RBC (Bld) [#/Vol] NINF [facility] Platelet mean volume (Bld) [Entitic vol] 8.6 fL Low 9.0 - 12.7 fL [facility] Platelets (Bld) [#/Vol] 364 10*3/uL [facility] RBC (Bld) [#/Vol] 3.63 10*6/uL Low 3.90 - 5.2 0 m/uL [facility] WBC (Bld) [#/Vol] 7.19 10*3/uL [facility] Erythrocyte distribution width (RBC) [Ratio] 13.8 % Normal 11.5-15.0 [facility] Comment on above: Order Comment: Speci men Type: BLOOD SPECIMENOrdering Facility: [facility] Address: [address] [place] [address] Performed By: #### 5 7021-8 ####[facility] [id number] [address] [place] [facility] Hematocrit (Bld) [Volume fraction] 37.3 % Normal 36.0-46.0 [facility] Comment on above: Order Comment: Speci men Type: BLOOD SPECIMENOrdering Facility: [facility] Address: [address] [place] [address] Performed By: #### 5 7021-8 ####[facility] [id number] [place] [address] [place] Hemoglobin (Bld) [Mass/Vol] 12.7 g/dL Normal 11.5-15.5 [facility] Comment on above: Order Comment: Speci men Type: BLOOD SPECIMENOrdering Facility: [facility] Address: [address] [place] [address] Performed By: #### 5 7021-8 ####[facility] [id number] [place] [address] [place] Immature granulocytes (Bld) [#/Vol] 10*3/uL Normal <0.10 [facility] Comment on above: Order Comment: Speci men Type: BLOOD SPECIMENOrdering Facility: [facility] Address: [address] [place] [address] Performed By: #### 5 7021-8 ####[facility] [id number] [place] [address] [place] MCH (RBC) [Entitic mass] 35.0 pg High 26.0-34.0 [facility] Comment on above: Order Comment: Speci men Type: BLOOD SPECIMENOrdering Facility: [facility] Address: [address] [place] [address] Performed By: #### 5 7021-8 ####[facility] [id number] [place] [address] [place] MCHC (RBC) [Mass/Vol] 34.0 g/dL Normal 30.5-36.0 [facility] Comment on above: Order Comment: Speci men Type: BLOOD SPECIMENOrdering Facility: [facility] Address: [address] [place] [address] Performed By: #### 5 7021-8 ####[facility] [id number] [place] [address] [place] MCV (RBC) [Entitic vol] 102.8 fL High 80.0-100.0 [facility] Comment on above: Order Comment: Speci men Type: BLOOD SPECIMENOrdering Facility: [facility] Address: [address] [place] [address] Performed By: #### 5 7021-8 ####[facility] [id number] [place] [address] [place] Neutrophils (Bld) [#/Vol] 4.01 10*3/uL Normal 1.45-7.50 [facility] Comment on above: Order Comment: Speci men Type: BLOOD SPECIMENOrdering Facility: [facility] Address: [address] [place] [address] Performed By: #### 5 7021-8 ####[facility] [id number] [place] [address] [place] Nucleated RBC (Bld) [#/Vol] 10*3/uL Normal <0.01 [facility] Comment on above: Order Comment: Speci men Type: BLOOD SPECIMENOrdering Facility: [facility] Address: [address] [place] [address] Performed By: #### 5 7021-8 ####[facility] [id number] [place] [address] [place] Platelet mean volume (Bld) [Entitic vol] 8.6 fL Low 9.0-12.7 [facility] Comment on above: Order Comment: Speci men Type: BLOOD SPECIMENOrdering Facility: [facility] Address: [address] [place] [address] Performed By: #### 5 7021-8 ####[facility] [id number] [place] [address] [place] Platelets (Bld) [#/Vol] 364 10*3/uL Normal 150-400 [facility] Comment on above: Order Comment: Speci men Type: BLOOD SPECIMENOrdering Facility: [facility] Address: [address] [place] [address] Performed By: #### 5 7021-8 ####[facility] [id number] [place] [address] [place] RBC (Bld) [#/Vol] 3.63 10*6/uL Low 3.90-5.20 [facility] Comment on above: Order Comment: Speci men Type: BLOOD SPECIMENOrdering Facility: [facility] Address: [address] [place] [address] Performed By: #### 5 7021-8 ####[facility] [id number] [place] [address] [place] WBC (Bld) [#/Vol] 7.19 10*3/uL Normal 3.70-11.00 [facility] Comment on above: Order Comment: Speci men Type: BLOOD SPECIMENOrdering Facility: [facility] Address: [address] [place] [address] Performed By: #### 5 7021-8 ####[facility] [id number] [place] [address] [place] CNOVSPon 07-19-2024 CNOVSP Normal [facility] Comprehensive metabolic 2000 panelon 07-19-2024 Albumin [Mass/Vol] 4.2 g/dL 3.9 - 4.9 g/dL [facility] ALP [Catalytic activity/Vol] 117 U/L 34 - 123 U/L [facility] ALT [Catalytic activity/Vol] 42 U/L High 7 - 38 U/L [facility] Anion gap [Moles/Vol] 10 mmol/L 8 - 15 mmol/L [facility] AST [Catalytic activity/Vol] 39 U/L High 13 - 35 U/L [facility] Bilirubin [Mass/Vol] 0.2 mg/dL 0.2 - 1 .3 mg/dL [facility] Calcium [Mass/Vol] 9.4 mg/dL 8.5 - 10. 2 mg/dL [facility] Chloride [Moles/Vol] 108 mmol/L High 98 - 10 7 mmol/L [facility] CO2 [Moles/Vol] 23 mmol/L 22 - 30 mmol/L [facility] Creatinine [Mass/Vol] 0.88 mg/dL 0.58 - 0.96 mg/dL [facility] GFR/1.73 sq M.predicted among non-blacks MDRD (S/P/Bld) [Vol rate/Area] 77 mL/min/{1.73_m2} - PINF [facility] Comment on above: Estimated Glomerular Filtration Rate (eGFR) is calculated using the 2020 CKD-EPI creatinine equation. This equation utilizes serum creatinine, sex, and age as parameters. The creatinine assay has traceable calibration to isotope dilution-mass spectrometry. Refer to KDIGO guidelines for clinical interpretation. In patients with unstable renal function, e.g. those with acute kidney injury, the eGFR may not accurately reflect actual GFR. Glucose [Mass/Vol] 104 mg/dL High 74 - 99 mg/dL [facility] Comment on above: The English Diabete s Association (ADA) provides guidance for cutoff values for fasting glucose and random glucose. The ADA defines fasting as no caloric intake for at least 8 hours. Fasting plasma glucose results between 100 to 125 mg/dL indicate increased risk for diabetes (prediabetes). Fasting plasma glucose results greater than or equal to 126 mg/dL meet the criteria for diagnosis of diabetes. In the absence of unequivocal hyperglycemia, results should be confirmed by repeat testing. In a patient with classic symptoms of hyperglycemia or hyperglycemic crisis, random plasma glucose results greater than or equal to 200 mg/dL meet the criteria for diagnosis of diabetes. Reference: Standards of Medical Care in Diabetes 2016, English Diabetes Association. Diabetes Care. 2016.39(Suppl 1). Interpretation and review of laboratory results Abnormal [facility] Potassium [Moles/Vol] 4.1 mmol/L 3.7 - 5.1 mmol/L [facility] Protein [Mass/Vol] 6.8 g/dL 6.3 - 8.0 g/dL [facility] Sodium [Moles/Vol] 141 mmol/L 136 - 144 mmol/L [facility] Urea nitrogen [Mass/Vol] 10 mg/dL 7 - 21 mg/dL [facility] Albumin [Mass/Vol] 4.2 g/dL Normal 3.9-4.9 [facility] Comment on above: Order Comment: Speci men Type: BLOOD SPECIMENOrdering Facility: [facility] Address: [address] [place] [address] Performed By: #### 2 4323-8 ####[facility] [id number] [place] [address] [place] ALP [Catalytic activity/Vol] 117 U/L Normal 34-123 [facility] Comment on above: Order Comment: Speci men Type: BLOOD SPECIMENOrdering Facility: [facility] Address: [address] [place] [address] Performed By: #### 2 4323-8 ####[facility] [id number] [place] [address] [place] ALT [Catalytic activity/Vol] 42 U/L High 7-38 [facility] Comment on above: Order Comment: Speci men Type: BLOOD SPECIMENOrdering Facility: [facility] Address: [address] [place] [address] Performed By: #### 2 4323-8 ####[facility] [id number] [place] [address] [place] Anion gap [Moles/Vol] 10 mmol/L Normal 8-15 [facility] Comment on above: Order Comment: Speci men Type: BLOOD SPECIMENOrdering Facility: [facility] Address: [address] [place] [address] Performed By: #### 2 4323-8 ####[facility] [id number] [place] [address] [place] AST [Catalytic activity/Vol] 39 U/L High 13-35 [facility] Comment on above: Order Comment: Speci men Type: BLOOD SPECIMENOrdering Facility: [facility] Address: [address] [place] [address] Performed By: #### 2 4323-8 ####[facility] [id number] [place] [address] [place] Bilirubin [Mass/Vol] 0.2 mg/dL Normal 0.2-1.3 [facility] Comment on above: Order Comment: Speci men Type: BLOOD SPECIMENOrdering Facility: [facility] Address: [address] [place] [address] Performed By: #### 2 4323-8 ####[facility] [id number] [place] [address] [place] Calcium [Mass/Vol] 9.4 mg/dL Normal 8.5-10.2 [facility] Comment on above: Order Comment: Speci men Type: BLOOD SPECIMENOrdering Facility: [facility] Address: [address] [place] [address] Performed By: #### 2 4323-8 ####[facility] [place] [id number] [place] [address] [place] Chloride [Moles/Vol] 108 mmol/L High 98-107 [facility] Comment on above: Order Comment: Speci men Type: BLOOD SPECIMENOrdering Facility: [facility] Address: [address] [place] [address] Performed By: #### 2 4323-8 ####[facility] [id number] [place] [address] [place] CO2 [Moles/Vol] 23 mmol/L Normal 22-30 [facility] Comment on above: Order Comment: Speci men Type: BLOOD SPECIMENOrdering Facility: [facility] Address: [address] [place] [address] Performed By: #### 2 4323-8 ####[facility] [id number] [id number] [address] [place] Creatinine [Mass/Vol] 0.88 mg/dL Normal 0.58-0.96 [facility] Comment on above: Order Comment: Eris staton Type: BLOOD SPECIMENOrdering Facility: [facility] Address: [address] [place] [address] Performed By: #### 2 4323-8 ####[facility] [id number] [address] [place] Creatinine and Glomerular filtration rate.predicted panel (S/P/Bld) 77 mL/min/1.73m??? Normal >=60 [facility] Comment on above: Order Comment: Eris staton Type: BLOOD SPECIMENOrdering Facility: [facility] Address: [address] [place] [address] Result Comment: Jina mated Glomerular Filtration Rate (eGFR) is calculated using the 2020 CKD-EPI creatinine equation. This equation utilizes serum creatinine, sex, and age as parameters. The creatinine assay has traceable calibration to isotope dilution-mass spectrometry. Refer to KDIGO guidelines for clinical interpretation. In patients with unstable renal function, e.g. those with acute kidney injury, the eGFR may not accurately reflect actual GFR. Performed By: #### 2 4323-8 ####[facility] [id number] [place] [address] [place] Glucose [Mass/Vol] 104 mg/dL High 74-99 [facility] Comment on above: Order Comment: Eris staton Type: BLOOD SPECIMENOrdering Facility: [facility] Address: [address] [place] [address] Result Comment: The English Diabetes Association (ADA) provides guidance for cutoff values for fasting glucose and random glucose. The ADA defines fasting as no caloric intake for at least 8 hours. Fasting plasma glucose results between 100 to 125 mg/dL indicate increased risk for diabetes (prediabetes).Fasting plasma glucose results greater than or equal to 126 mg/dL meet the criteria for diagnosis of diabetes. In the absence of unequivocal hyperglycemia, results should be confirmed by repeat testing. In a patient with classic symptoms of hyperglycemia or hyperglycemic crisis, random plasma glucose results greater than or equal to 200 mg/dL meet the criteria for diagnosis of diabetes.Reference: Standards of Medical Care in Diabetes 2016, English Diabetes Association. Diabetes Care. 2016.39(Suppl 1). Performed By: #### 2 4323-8 ####[facility] [id number] [place] [address] [place] Potassium [Moles/Vol] 4.1 mmol/L Normal 3.7-5.1 [facility] Comment on above: Order Comment: Speci men Type: BLOOD SPECIMENOrdering Facility: [facility] Address: [address] [place] [address] Performed By: #### 2 4323-8 ####[facility] [id number] [place] [address] [place] Protein [Mass/Vol] 6.8 g/dL Normal 6.3-8.0 [facility] Comment on above: Order Comment: Speci men Type: BLOOD SPECIMENOrdering Facility: [facility] Address: [address] [place] [address] Performed By: #### 2 4323-8 ####[facility] [id number] [place] [address] [place] Sodium [Moles/Vol] 141 mmol/L Normal 136-144 [facility] Comment on above: Order Comment: Speci men Type: BLOOD SPECIMENOrdering Facility: [facility] Address: [address] [place] [address] Performed By: #### 2 4323-8 ####[facility] [id number] [place] [address] [place] Urea nitrogen [Mass/Vol] 10 mg/dL Normal 7-21 [facility] Comment on above: Order Comment: Speci men Type: BLOOD SPECIMENOrdering Facility: [facility] Address: [address] [place] [address] Performed By: #### 2 4323-8 ####[facility] [id number] [place] [address] [place] THYROID STIMULATING HORMONEo n 07-19-2024 TSH Qn 0.997 m[IU]/L [facility] TSH Qnon 07-19-2024 Interpretation and review of laboratory results Normal [facility] TSH SerPl-aCncon 07-19-2024 TSH Qn 0.997 m[IU]/L Normal 0.270-4.200 [facility] Comment on above: Order Comment: Speci men Type: BLOOD SPECIMENOrdering Facility: [facility] Address: [address] [place] [address] Performed By: #### 3 016-3 ####[facility] LABCLIA [id number] [address] [place] CNPNon 07-13-2024 CNPN Normal [facility] CBC W Auto Differential pane l (Bld)on 06-30-2024 Basophils (Bld) [#/Vol] 0.08 10*3/uL [facility] Basophils/100 WBC (Bld) 0.8 % [facility] Differential cell count method Nom (Bld) Auto [facility] Eosinophils (Bld) [#/Vol] 0.12 10*3/uL [facility] Eosinophils/100 WBC (Bld) 1.1 % [facility] Erythrocyte distribution width (RBC) [Ratio] 13.8 % 11.5 - 15.0 % [facility] Hematocrit (Bld) [Volume fraction] 41.6 % 36.0 - 46.0 % [facility] Hemoglobin (Bld) [Mass/Vol] 14.4 g/dL 11.5 - 15.5 g/dL [facility] Immature granulocytes (Bld) [#/Vol] 0.04 10*3/uL [facility] Immature granulocytes/100 WBC (Bld) 0.4 % [facility] Interpretation and review of laboratory results Abnormal [facility] Lymphocytes (Bld) [#/Vol] 2.63 10*3/uL [facility] Lymphocytes/100 WBC (Bld) 25.0 % [facility] MCH (RBC) [Entitic mass] 35.4 pg High 26.0 - 34.0 pg [facility] MCHC (RBC) [Mass/Vol] 34.6 g/dL 30.5 - 36.0 g/dL [facility] MCV (RBC) [Entitic vol] 102.2 fL High 80.0 - 100.0 fL [facility] Monocytes (Bld) [#/Vol] 0.73 10*3/uL [facility] Monocytes/100 WBC (Bld) 7.0 % [facility] Neutrophils (Bld) [#/Vol] 6.90 10*3/uL [facility] Neutrophils/100 WBC (Bld) 65.7 % [facility] Nucleated RBC (Bld) [#/Vol] NINF [facility] Nucleated RBC/100 WBC (Bld) [Ratio] 0.0 % /100 WBC [facility] Platelet mean volume (Bld) [Entitic vol] 8.3 fL Low 9.0 - 12.7 fL [facility] Platelets (Bld) [#/Vol] 350 10*3/uL [facility] RBC (Bld) [#/Vol] 4.07 10*6/uL 3.90 - 5.2 0 m/uL [facility] WBC (Bld) [#/Vol] 10.50 10*3/uL [facility] Basophils (Bld) [#/Vol] 0.08 10*3/uL Normal <0.11 [facility] Comment on above: Order Comment: Speci men Type: BLOOD SPECIMENOrdering Facility: [facility] Address: [address] [place] [address] Performed By: #### 5 7021-8 ####[facility] [id number] [place] [address] [place] Basophils/100 WBC (Bld) 0.8 % Normal [facility] Comment on above: Order Comment: Speci men Type: BLOOD SPECIMENOrdering Facility: [facility] Address: [address] [place] [address] Performed By: #### 5 7021-8 ####[facility] [id number] [address] [id number], [place] [address] [place] Differential cell count method Nom (Bld) Auto Normal [facility] Comment on above: Order Comment: Speci men Type: BLOOD SPECIMENOrdering Facility: [facility] Address: [address] [place] [address] Performed By: #### 5 7021-8 ####[facility] [id number] [place] [address] [place] Eosinophils (Bld) [#/Vol] 0.12 10*3/uL Normal <0.46 [facility] Comment on above: Order Comment: Speci men Type: BLOOD SPECIMENOrdering Facility: [facility] Address: [address] [place] [address] Performed By: #### 5 7021-8 ####[facility] [id number] [place] [address] [place] Eosinophils/100 WBC (Bld) 1.1 % Normal [facility] Comment on above: Order Comment: Speci men Type: BLOOD SPECIMENOrdering Facility: [facility] Address: [address] [place] [address] Performed By: #### 5 7021-8 ####[facility] [id number] [place] [address] [place] Erythrocyte distribution width (RBC) [Ratio] 13.8 % Normal 11.5-15.0 [facility] Comment on above: Order Comment: Speci men Type: BLOOD SPECIMENOrdering Facility: [facility] Address: [address] [place] [address] Performed By: #### 5 7021-8 ####[facility] [id number] [place] [address] [place] Hematocrit (Bld) [Volume fraction] 41.6 % Normal 36.0-46.0 [facility] Comment on above: Order Comment: Speci men Type: BLOOD SPECIMENOrdering Facility: [facility] Address: [address] [place] [address] Performed By: #### 5 7021-8 ####[facility] [id number] [place] [address] [place] Hemoglobin (Bld) [Mass/Vol] 14.4 g/dL Normal 11.5-15.5 [facility] Comment on above: Order Comment: Speci men Type: BLOOD SPECIMENOrdering Facility: [facility] Address: [address] [place] [address] Performed By: #### 5 7021-8 ####[facility] [id number] [place] [address] [place] Immature granulocytes (Bld) [#/Vol] 0.04 10*3/uL Normal <0.10 [facility] Comment on above: Order Comment: Speci men Type: BLOOD SPECIMENOrdering Facility: [facility] Address: [address] [place] [address] Performed By: #### 5 7021-8 ####[facility] [id number] [place] [address] [place] Immature granulocytes/100 WBC (Bld) 0.4 % Normal [facility] Comment on above: Order Comment: Speci men Type: BLOOD SPECIMENOrdering Facility: [facility] Address: [address] [place] [address] Performed By: #### 5 7021-8 ####[facility] [id number] [place] [address] [place] Lymphocytes (Bld) [#/Vol] 2.63 10*3/uL Normal 1.00-4.00 [facility] Comment on above: Order Comment: Speci men Type: BLOOD SPECIMENOrdering Facility: [facility] Address: [address] [place] [address] Performed By: #### 5 7021-8 ####[facility] [id number] [place] [address] [place] Lymphocytes/100 WBC (Bld) 25.0 % Normal [facility] Comment on above: Order Comment: Speci men Type: BLOOD SPECIMENOrdering Facility: [facility] Address: [address] [place] [address] Performed By: #### 5 7021-8 ####[facility] [id number] [place] [address] [place] MCH (RBC) [Entitic mass] 35.4 pg High 26.0-34.0 [facility] Comment on above: Order Comment: Speci men Type: BLOOD SPECIMENOrdering Facility: [facility] Address: [address] [place] [address] Performed By: #### 5 7021-8 ####[facility] [id number] [place] [address] [place] MCHC (RBC) [Mass/Vol] 34.6 g/dL Normal 30.5-36.0 [facility] Comment on above: Order Comment: Speci men Type: BLOOD SPECIMENOrdering Facility: [facility] Address: [address] [place] [address] Performed By: #### 5 7021-8 ####[facility] [id number] [place] [address] [place] MCV (RBC) [Entitic vol] 102.2 fL High 80.0-100.0 [facility] Comment on above: Order Comment: Speci men Type: BLOOD SPECIMENOrdering Facility: [facility] Address: [address] [place] [address] Performed By: #### 5 7021-8 ####[facility] [id number] [place] [address] [place] Monocytes (Bld) [#/Vol] 0.73 10*3/uL Normal <0.87 [facility] Comment on above: Order Comment: Speci men Type: BLOOD SPECIMENOrdering Facility: [facility] Address: [address] [place] [address] Performed By: #### 5 7021-8 ####[facility] [id number] [place] [address] [place] Monocytes/100 WBC (Bld) 7.0 % Normal [facility] Comment on above: Order Comment: Speci men Type: BLOOD SPECIMENOrdering Facility: [facility] Address: [address] [place] [address] Performed By: #### 5 7021-8 ####[facility] [id number] [place] [address] [place] Neutrophils (Bld) [#/Vol] 6.90 10*3/uL Normal 1.45-7.50 [facility] Comment on above: Order Comment: Speci men Type: BLOOD SPECIMENOrdering Facility: [facility] Address: [address] [place] [address] Performed By: #### 5 7021-8 ####[facility] [id number] [place] [address] [place] Neutrophils/100 WBC (Bld) 65.7 % Normal [facility] Comment on above: Order Comment: Speci men Type: BLOOD SPECIMENOrdering Facility: [facility] Address: [address] [place] [address] Performed By: #### 5 7021-8 ####[facility] [id number] [place] [address] [place] Nucleated RBC (Bld) [#/Vol] 10*3/uL Normal <0.01 [facility] Comment on above: Order Comment: Speci men Type: BLOOD SPECIMENOrdering Facility: [facility] Address: [address] [place] [address] Performed By: #### 5 7021-8 ####[facility] [id number] [place] [address] [place] Nucleated RBC/100 WBC (Bld) [Ratio] 0.0 /100 WBC Normal [facility] Comment on above: Order Comment: Speci men Type: BLOOD SPECIMENOrdering Facility: [facility] Address: [address] [place] [address] Performed By: #### 5 7021-8 ####[facility] [id number] [place] [address] [place] Platelet mean volume (Bld) [Entitic vol] 8.3 fL Low 9.0-12.7 [facility] Comment on above: Order Comment: Speci men Type: BLOOD SPECIMENOrdering Facility: [facility] Address: [address] [place] [address] Performed By: #### 5 7021-8 ####[facility] [id number] [place] [address] [place] Platelets (Bld) [#/Vol] 350 10*3/uL Normal 150-400 [facility] Comment on above: Order Comment: Speci men Type: BLOOD SPECIMENOrdering Facility: [facility] Address: [address] [place] [address] Performed By: #### 5 7021-8 ####[facility] [id number] [place] [address] [place] RBC (Bld) [#/Vol] 4.07 10*6/uL Normal 3.90-5.20 [facility] Comment on above: Order Comment: Speci men Type: BLOOD SPECIMENOrdering Facility: [facility] Address: [address] [place] [address] Performed By: #### 5 7021-8 ####[facility] [id number] [place] [address] [place] WBC (Bld) [#/Vol] 10.50 10*3/uL Normal 3.70-11.00 [facility] Comment on above: Order Comment: Speci men Type: BLOOD SPECIMENOrdering Facility: [facility] Address: [address] [facility] [place] [address] Performed By: #### 5 7021-8 ####[facility] [id number] [address] [place] [id number] [address] [place] CNOVSPon 06-30-2024 CNOVSP Normal [facility] Comprehensive metabolic 2000 panelon 06-30-2024 Albumin [Mass/Vol] 4.4 g/dL 3.9 - 4.9 g/dL [facility] ALP [Catalytic activity/Vol] 134 U/L High 34 - 123 U/L [facility] ALT [Catalytic activity/Vol] 55 U/L High 7 - 38 U/L [facility] Anion gap [Moles/Vol] 15 mmol/L 8 - 15 mmol/L [facility] AST [Catalytic activity/Vol] 39 U/L High 13 - 35 U/L [facility] Bilirubin [Mass/Vol] mg/dL Low 0.2 - 1 .3 mg/dL [facility] Calcium [Mass/Vol] 9.2 mg/dL 8.5 - 10. 2 mg/dL [facility] Chloride [Moles/Vol] 99 mmol/L 98 - 10 7 mmol/L [facility] CO2 [Moles/Vol] 24 mmol/L 22 - 30 mmol/L [facility] Creatinine [Mass/Vol] 0.93 mg/dL 0.58 - 0.96 mg/dL [facility] GFR/1.73 sq M.predicted among non-blacks MDRD (S/P/Bld) [Vol rate/Area] 72 mL/min/{1.73_m2} - PINF [facility] Comment on above: Estimated Glomerular Filtration Rate (eGFR) is calculated using the 2020 CKD-EPI creatinine equation. This equation utilizes serum creatinine, sex, and age as parameters. The creatinine assay has traceable calibration to isotope dilution-mass spectrometry. Refer to KDIGO guidelines for clinical interpretation. In patients with unstable renal function, e.g. those with acute kidney injury, the eGFR may not accurately reflect actual GFR. Glucose [Mass/Vol] 177 mg/dL High 74 - 99 mg/dL [facility] Comment on above: The [place] Diabete s Association (ADA) provides guidance for cutoff values for fasting glucose and random glucose. The ADA defines fasting as no caloric intake for at least 8 hours. Fasting plasma glucose results between 100 to 125 mg/dL indicate increased risk for diabetes (prediabetes). Fasting plasma glucose results greater than or equal to 126 mg/dL meet the criteria for diagnosis of diabetes. In the absence of unequivocal hyperglycemia, results should be confirmed by repeat testing. In a patient with classic symptoms of hyperglycemia or hyperglycemic crisis, random plasma glucose results greater than or equal to 200 mg/dL meet the criteria for diagnosis of diabetes. Reference: Standards of Medical Care in Diabetes 2016, [place] Diabetes Association. Diabetes Care. 2016.39(Suppl 1). Interpretation and review of laboratory results Abnormal [facility] Potassium [Moles/Vol] 3.6 mmol/L Low 3.7 - 5.1 mmol/L [facility] Protein [Mass/Vol] 7.1 g/dL 6.3 - 8.0 g/dL [facility] Sodium [Moles/Vol] 138 mmol/L 136 - 144 mmol/L [facility] Urea nitrogen [Mass/Vol] 15 mg/dL 7 - 21 mg/dL [facility] Albumin [Mass/Vol] 4.4 g/dL Normal 3.9-4.9 [facility] Comment on above: Order Comment: Speci men Type: BLOOD SPECIMENOrdering Facility: [facility] Address: [address] [place] [address] Performed By: #### 2 4323-8 ####[facility] [id number] [place] [address] [place] ALP [Catalytic activity/Vol] 134 U/L High 34-123 [facility] Comment on above: Order Comment: Speci men Type: BLOOD SPECIMENOrdering Facility: [facility] Address: [address] [place] [address] Performed By: #### 2 4323-8 ####[facility] [id number] [place] [address] [place] ALT [Catalytic activity/Vol] 55 U/L High 7-38 [facility] Comment on above: Order Comment: Speci men Type: BLOOD SPECIMENOrdering Facility: [facility] Address: [address] [place] [address] Performed By: #### 2 4323-8 ####[facility] [id number] [place] [address] [place] Anion gap [Moles/Vol] 15 mmol/L Normal 8-15 [facility] Comment on above: Order Comment: Speci men Type: BLOOD SPECIMENOrdering Facility: [facility] Address: [address] [place] [address] Performed By: #### 2 4323-8 ####[facility] [id number] [place] [address] [place] AST [Catalytic activity/Vol] 39 U/L High 13-35 [facility] Comment on above: Order Comment: Speci men Type: BLOOD SPECIMENOrdering Facility: [facility] Address: [address] [place] [address] Performed By: #### 2 4323-8 ####[facility] [id number] [place] [address] [place] Bilirubin [Mass/Vol] mg/dL Low 0.2-1.3 [facility] Comment on above: Order Comment: Speci men Type: BLOOD SPECIMENOrdering Facility: [facility] Address: [address] [place] [address] Performed By: #### 2 4323-8 ####[facility] [id number] [place] [address] [place] Calcium [Mass/Vol] 9.2 mg/dL Normal 8.5-10.2 [facility] Comment on above: Order Comment: Speci men Type: BLOOD SPECIMENOrdering Facility: [facility] Address: [address] [place] [address] Performed By: #### 2 4323-8 ####[facility] [id number] [place] [address] [place] Chloride [Moles/Vol] 99 mmol/L Normal 98-107 [facility] Comment on above: Order Comment: Speci men Type: BLOOD SPECIMENOrdering Facility: [facility] Address: [address] [place] [address] Performed By: #### 2 4323-8 ####[facility] [id number] [place] [address] [place] CO2 [Moles/Vol] 24 mmol/L Normal 22-30 [facility] Comment on above: Order Comment: Speci men Type: BLOOD SPECIMENOrdering Facility: [facility] Address: [address] [place] [address] Performed By: #### 2 4323-8 ####[facility] [id number] [place] [address] [place] Creatinine [Mass/Vol] 0.93 mg/dL Normal 0.58-0.96 [facility] Comment on above: Order Comment: Speci men Type: BLOOD SPECIMENOrdering Facility: [facility] Address: [address] [place] [address] Performed By: #### 2 4323-8 ####[facility] [id number] [address] [facility] Creatinine and Glomerular filtration rate.predicted panel (S/P/Bld) 72 mL/min/1.73m??? Normal >=60 [facility] Comment on above: Order Comment: Speci men Type: BLOOD SPECIMENOrdering Facility: [facility] Address: [address] [place] [address] Result Comment: Jina mated Glomerular Filtration Rate (eGFR) is calculated using the 2020 CKD-EPI creatinine equation. This equation utilizes serum creatinine, sex, and age as parameters. The creatinine assay has traceable calibration to isotope dilution-mass spectrometry. Refer to KDIGO guidelines for clinical interpretation. In patients with unstable renal function, e.g. those with acute kidney injury, the eGFR may not accurately reflect actual GFR. Performed By: #### 2 4323-8 ####[facility] [id number] [place] [address] [place] Glucose [Mass/Vol] 177 mg/dL High 74-99 [facility] Comment on above: Order Comment: Speci men Type: BLOOD SPECIMENOrdering Facility: [facility] Address: [address] [place] [address] Result Comment: The [place] Diabetes Association (ADA) provides guidance for cutoff values for fasting glucose and random glucose. The ADA defines fasting as no caloric intake for at least 8 hours. Fasting plasma glucose results between 100 to 125 mg/dL indicate increased risk for diabetes (prediabetes).Fasting plasma glucose results greater than or equal to 126 mg/dL meet the criteria for diagnosis of diabetes. In the absence of unequivocal hyperglycemia, results should be confirmed by repeat testing. In a patient with classic symptoms of hyperglycemia or hyperglycemic crisis, random plasma glucose results greater than or equal to 200 mg/dL meet the criteria for diagnosis of diabetes.Reference: Standards of Medical Care in Diabetes 2016, [place] Diabetes Association. Diabetes Care. 2016.39(Suppl 1). Performed By: #### 2 4323-8 ####[facility] [id number] [place] [address] [place] Potassium [Moles/Vol] 3.6 mmol/L Low 3.7-5.1 [facility] Comment on above: Order Comment: Speci men Type: BLOOD SPECIMENOrdering Facility: [facility] Address: [address] [place] [address] Performed By: #### 2 4323-8 ####[facility] [id number] [place] [address] [place] Protein [Mass/Vol] 7.1 g/dL Normal 6.3-8.0 [facility] Comment on above: Order Comment: Speci men Type: BLOOD SPECIMENOrdering Facility: [facility] Address: [address] [place] [address] Performed By: #### 2 4323-8 ####[facility] [id number] [place] [address] [place] Sodium [Moles/Vol] 138 mmol/L Normal 136-144 [facility] Comment on above: Order Comment: Speci men Type: BLOOD SPECIMENOrdering Facility: [facility] Address: [address] [place] [address] Performed By: #### 2 4323-8 ####[facility] [id number] [place] [address] [place] Urea nitrogen [Mass/Vol] 15 mg/dL Normal 7-21 [facility] Comment on above: Order Comment: Speci men Type: BLOOD SPECIMENOrdering Facility: [facility] Address: [address] [place] [address] Performed By: #### 2 4323-8 ####[facility] [id number] [place] [address] [place] No Panel Informationon 06-30 Interpretation and review of laboratory results Normal [facility] T4 FREE/FREE THYROXINEon Free T4 [Mass/Vol] 1.0 ng/dL 0.9 - 1.7 ng/dL [facility] T4 Free SerPl-mCncon 024 Free T4 [Mass/Vol] 1.0 ng/dL Normal 0.9-1.7 [facility] Comment on above: Order Comment: Speci men Type: BLOOD SPECIMENOrdering Facility: [facility] Address: [address] [place] [address] Performed By: #### 3 024-7, 3016-3 ####[facility] [id number] [place] [address] [place] THYROID STIMULATING HORMONEo n 06-30-2024 TSH Qn 1.470 m[IU]/L [facility] TSH SerPl-aCncon 06-30-2024 TSH Qn 1.470 m[IU]/L Normal 0.270-4.200 [facility] Comment on above: Order Comment: Speci men Type: BLOOD SPECIMENOrdering Facility: [facility] Address: [address] [place] [address] Performed By: #### 3 024-7, 3016-3 ####[facility] LABCLIA [id number] [facility] [id number] [place] [address] [place] CBC W Auto Differential pane l (Bld)on 06-07-2024 Erythrocyte distribution width (RBC) [Ratio] 14.0 % 11.5 - 15.0 % [facility] Hematocrit (Bld) [Volume fraction] 39.3 % 36.0 - 46.0 % [facility] Hemoglobin (Bld) [Mass/Vol] 13.4 g/dL 11.5 - 15.5 g/dL [facility] Immature granulocytes (Bld) [#/Vol] [facility] Interpretation and review of laboratory results Abnormal [facility] MCH (RBC) [Entitic mass] 35.6 pg High 26.0 - 34.0 pg [facility] MCHC (RBC) [Mass/Vol] 34.1 g/dL 30.5 - 36.0 g/dL [facility] MCV (RBC) [Entitic vol] 104.5 fL High 80.0 - 100.0 fL [facility] Neutrophils (Bld) [#/Vol] 2.99 10*3/uL [facility] Nucleated RBC (Bld) [#/Vol] [facility] Platelet mean volume (Bld) [Entitic vol] 8.7 fL Low 9.0 - 12.7 fL [facility] Platelets (Bld) [#/Vol] 318 10*3/uL [facility] RBC (Bld) [#/Vol] 3.76 10*6/uL Low 3.90 - 5.2 0 m/uL [facility] WBC (Bld) [#/Vol] 6.18 10*3/uL [facility] Erythrocyte distribution width (RBC) [Ratio] 14.0 % Normal 11.5-15.0 [facility] Comment on above: Order Comment: Speci men Type: BLOOD SPECIMENOrdering Facility: [facility] Address: [address] [place] [address] Performed By: #### 5 7021-8 ####[facility] [id number] [place] [address] [place] Hematocrit (Bld) [Volume fraction] 39.3 % Normal 36.0-46.0 [facility] Comment on above: Order Comment: Speci men Type: BLOOD SPECIMENOrdering Facility: [facility] Address: [address] [place] [address] Performed By: #### 5 7021-8 ####[facility] [id number] [place] [address] [place] Hemoglobin (Bld) [Mass/Vol] 13.4 g/dL Normal 11.5-15.5 [facility] Comment on above: Order Comment: Speci men Type: BLOOD SPECIMENOrdering Facility: [facility] Address: [address] [place] [address] Performed By: #### 5 7021-8 ####[facility] [id number] [place] [address] [place] Immature granulocytes (Bld) [#/Vol] 10*3/uL Normal <0.10 [facility] Comment on above: Order Comment: Speci men Type: BLOOD SPECIMENOrdering Facility: [facility] Address: [address] [place] [address] Performed By: #### 5 7021-8 ####[facility] [id number] [place] [address] [place] MCH (RBC) [Entitic mass] 35.6 pg High 26.0-34.0 [facility] Comment on above: Order Comment: Speci men Type: BLOOD SPECIMENOrdering Facility: [facility] Address: [address] [place] [address] Performed By: #### 5 7021-8 ####[facility] [id number] [place] [address] [place] MCHC (RBC) [Mass/Vol] 34.1 g/dL Normal 30.5-36.0 [facility] Comment on above: Order Comment: Speci men Type: BLOOD SPECIMENOrdering Facility: [facility] Address: [address] [place] [address] Performed By: #### 5 7021-8 ####[facility] [id number] [place] [address] [place] MCV (RBC) [Entitic vol] 104.5 fL High 80.0-100.0 [facility] Comment on above: Order Comment: Speci men Type: BLOOD SPECIMENOrdering Facility: [facility] Address: [address] [place] [address] Performed By: #### 5 7021-8 ####[facility] [id number] [place] [address] [place] Neutrophils (Bld) [#/Vol] 2.99 10*3/uL Normal 1.45-7.50 [facility] Comment on above: Order Comment: Speci men Type: BLOOD SPECIMENOrdering Facility: [facility] Address: [address] [place] [address] Performed By: #### 5 7021-8 ####[facility] [id number] [place] [address] [place] Nucleated RBC (Bld) [#/Vol] 10*3/uL Normal <0.01 [facility] Comment on above: Order Comment: Speci men Type: BLOOD SPECIMENOrdering Facility: [facility] Address: [address] [place] [address] Performed By: #### 5 7021-8 ####[facility] [id number] [place] [address] [place] Platelet mean volume (Bld) [Entitic vol] 8.7 fL Low 9.0-12.7 [facility] Comment on above: Order Comment: Speci men Type: BLOOD SPECIMENOrdering Facility: [facility] Address: [address] [place] [address] Performed By: #### 5 7021-8 ####[facility] [id number] [place] [address] [place] Platelets (Bld) [#/Vol] 318 10*3/uL Normal 150-400 [facility] Comment on above: Order Comment: Speci men Type: BLOOD SPECIMENOrdering Facility: [facility] Address: [address] [place] [address] Performed By: #### 5 7021-8 ####[facility] [id number] [place] [address] [place] RBC (Bld) [#/Vol] 3.76 10*6/uL Low 3.90-5.20 [facility] Comment on above: Order Comment: Speci men Type: BLOOD SPECIMENOrdering Facility: [facility] Address: [address] [place] [address] Performed By: #### 5 7021-8 ####[facility] [id number] [place] [address] [place] WBC (Bld) [#/Vol] 6.18 10*3/uL Normal 3.70-11.00 [facility] Comment on above: Order Comment: Speci men Type: BLOOD SPECIMENOrdering Facility: [facility] Address: [address] [place] [address] Performed By: #### 5 7021-8 ####[facility] [id number] [place] [address] [place] CNOVSPon 06-07-2024 CNOVSP Normal [facility] metabolic 2000 panelon 06-07-2024 Albumin [Mass/Vol] 4.3 g/dL 3.9 - 4.9 g/dL [facility] ALP [Catalytic activity/Vol] 139 U/L High 34 - 123 U/L [facility] ALT [Catalytic activity/Vol] 47 U/L High 7 - 38 U/L [facility] Anion gap [Moles/Vol] 13 mmol/L 8 - 15 mmol/L [facility] AST [Catalytic activity/Vol] 43 U/L High 13 - 35 U/L [facility] Bilirubin [Mass/Vol] 0.2 mg/dL 0.2 - 1 .3 mg/dL [facility] Calcium [Mass/Vol] 9.3 mg/dL 8.5 - 10. 2 mg/dL [facility] Chloride [Moles/Vol] 105 mmol/L 98 - 10 7 mmol/L [facility] CO2 [Moles/Vol] 21 mmol/L Low 22 - 30 mmol/L [facility] Creatinine [Mass/Vol] 0.93 mg/dL 0.58 - 0.96 mg/dL [facility] GFR/1.73 sq M.predicted among non-blacks MDRD (S/P/Bld) [Vol rate/Area] 72 mL/min/{1.73_m2} - PINF [facility] Comment on above: Estimated Glomerular Filtration Rate (eGFR) is calculated using the 2020 CKD-EPI creatinine equation. This equation utilizes serum creatinine, sex, and age as parameters. The creatinine assay has traceable calibration to isotope dilution-mass spectrometry. Refer to KDIGO guidelines for clinical interpretation. In patients with unstable renal function, e.g. those with acute kidney injury, the eGFR may not accurately reflect actual GFR. Glucose [Mass/Vol] 136 mg/dL High 74 - 99 mg/dL [facility] Comment on above: The English Diabete s Association (ADA) provides guidance for cutoff values for fasting glucose and random glucose. The ADA defines fasting as no caloric intake for at least 8 hours. Fasting plasma glucose results between 100 to 125 mg/dL indicate increased risk for diabetes (prediabetes). Fasting plasma glucose results greater than or equal to 126 mg/dL meet the criteria for diagnosis of diabetes. In the absence of unequivocal hyperglycemia, results should be confirmed by repeat testing. In a patient with classic symptoms of hyperglycemia or hyperglycemic crisis, random plasma glucose results greater than or equal to 200 mg/dL meet the criteria for diagnosis of diabetes. Reference: Standards of Medical Care in Diabetes 2016, English Diabetes Association. Diabetes Care. 2016.39(Suppl 1). Interpretation and review of laboratory results Abnormal [facility] Potassium [Moles/Vol] 3.9 mmol/L 3.7 - 5.1 mmol/L [facility] Protein [Mass/Vol] 7.1 g/dL 6.3 - 8.0 g/dL [facility] Sodium [Moles/Vol] 139 mmol/L 136 - 144 mmol/L [facility] Urea nitrogen [Mass/Vol] 14 mg/dL 7 - 21 mg/dL [facility] Albumin [Mass/Vol] 4.3 g/dL Normal 3.9-4.9 [facility] Comment on above: Order Comment: Speci men Type: BLOOD SPECIMENOrdering Facility: [facility] Address: [address] [place] [address] Performed By: #### 2 4323-8 ####[facility] [id number] [place] [address] [place] ALP [Catalytic activity/Vol] 139 U/L High 34-123 [facility] Comment on above: Order Comment: Speci men Type: BLOOD SPECIMENOrdering Facility: [facility] Address: [address] [place] [address] Performed By: #### 2 4323-8 ####[facility] [id number] [place] [address] [place] ALT [Catalytic activity/Vol] 47 U/L High 7-38 [facility] Comment on above: Order Comment: Speci men Type: BLOOD SPECIMENOrdering Facility: [facility] Address: [address] [place] [address] Performed By: #### 2 4323-8 ####[facility] [id number] [place] [address] [place] Anion gap [Moles/Vol] 13 mmol/L Normal 8-15 [facility] Comment on above: Order Comment: Speci men Type: BLOOD SPECIMENOrdering Facility: [facility] Address: [address] [place] [address] Performed By: #### 2 4323-8 ####[facility] [id number] [place] [address] [place] AST [Catalytic activity/Vol] 43 U/L High 13-35 [facility] Comment on above: Order Comment: Speci men Type: BLOOD SPECIMENOrdering Facility: [facility] Address: [address] [place] [address] Performed By: #### 2 4323-8 ####[facility] [id number] [place] [address] [place] Bilirubin [Mass/Vol] 0.2 mg/dL Normal 0.2-1.3 [facility] Comment on above: Order Comment: Speci men Type: BLOOD SPECIMENOrdering Facility: [facility] Address: [address] [place] [address] Performed By: #### 2 4323-8 ####[facility] [id number] [place] [address] [place] Calcium [Mass/Vol] 9.3 mg/dL Normal 8.5-10.2 [facility] Comment on above: Order Comment: Speci men Type: BLOOD SPECIMENOrdering Facility: [facility] Address: [address] [place] [address] Performed By: #### 2 4323-8 ####[facility] [id number] [place] [address] [place] Chloride [Moles/Vol] 105 mmol/L Normal 98-107 [facility] Comment on above: Order Comment: Speci men Type: BLOOD SPECIMENOrdering Facility: [facility] Address: [address] [place] [address] Performed By: #### 2 4323-8 ####[facility] [id number] [place] [address] [place] CO2 [Moles/Vol] 21 mmol/L Low 22-30 [facility] Comment on above: Order Comment: Speci men Type: BLOOD SPECIMENOrdering Facility: [facility] Address: [address] [place] [address] Performed By: #### 2 4323-8 ####[facility] [id number] [place] [address] [place] Creatinine [Mass/Vol] 0.93 mg/dL Normal 0.58-0.96 [facility] Comment on above: Order Comment: Speci men Type: BLOOD SPECIMENOrdering Facility: [facility] Address: [address] [place] [address] Performed By: #### 2 4323-8 ####[facility] [id number] [address] [place] Creatinine and Glomerular filtration rate.predicted panel (S/P/Bld) 72 mL/min/1.73m??? Normal >=60 [facility] Comment on above: Order Comment: Speci men Type: BLOOD SPECIMENOrdering Facility: [facility] Address: [address] [place] [address] Result Comment: Jina mated Glomerular Filtration Rate (eGFR) is calculated using the 2020 CKD-EPI creatinine equation. This equation utilizes serum creatinine, sex, and age as parameters. The creatinine assay has traceable calibration to isotope dilution-mass spectrometry. Refer to KDIGO guidelines for clinical interpretation. In patients with unstable renal function, e.g. those with acute kidney injury, the eGFR may not accurately reflect actual GFR. Performed By: #### 2 4323-8 ####[facility] [id number] [place] [address] [place] Glucose [Mass/Vol] 136 mg/dL High 74-99 [facility] Comment on above: Order Comment: Speci men Type: BLOOD SPECIMENOrdering Facility: [facility] Address: [address] [place] [address] Result Comment: The English Diabetes Association (ADA) provides guidance for cutoff values for fasting glucose and random glucose. The ADA defines fasting as no caloric intake for at least 8 hours. Fasting plasma glucose results between 100 to 125 mg/dL indicate increased risk for diabetes (prediabetes).Fasting plasma glucose results greater than or equal to 126 mg/dL meet the criteria for diagnosis of diabetes. In the absence of unequivocal hyperglycemia, results should be confirmed by repeat testing. In a patient with classic symptoms of hyperglycemia or hyperglycemic crisis, random plasma glucose results greater than or equal to 200 mg/dL meet the criteria for diagnosis of diabetes.Reference: Standards of Medical Care in Diabetes 2016, English Diabetes Association. Diabetes Care. 2016.39(Suppl 1). Performed By: #### 2 4323-8 ####[facility] [id number] [place] [address] [place] Potassium [Moles/Vol] 3.9 mmol/L Normal 3.7-5.1 [facility] Comment on above: Order Comment: Speci men Type: BLOOD SPECIMENOrdering Facility: [facility] Address: [address] [place] [address] Performed By: #### 2 4323-8 ####[facility] [id number] [place] [address] [place] Protein [Mass/Vol] 7.1 g/dL Normal 6.3-8.0 [facility] Comment on above: Order Comment: Speci men Type: BLOOD SPECIMENOrdering Facility: [facility] Address: [address] [place] [address] Performed By: #### 2 4323-8 ####[facility] [id number] [place] [address] [place] Sodium [Moles/Vol] 139 mmol/L Normal 136-144 [facility] Comment on above: Order Comment: Speci men Type: BLOOD SPECIMENOrdering Facility: [facility] Address: [address] [place] [address] Performed By: #### 2 4323-8 ####[facility] [id number] [place] [address] [place] Urea nitrogen [Mass/Vol] 14 mg/dL Normal 7-21 [facility] Comment on above: Order Comment: Speci men Type: BLOOD SPECIMENOrdering Facility: [facility] Address: [address] [place] [address] Performed By: #### 2 4323-8 ####[facility] [id number] [place] [address] [place] No Panel Informationon 06-07 Interpretation and review of laboratory results Normal [facility] T4 FREE/FREE THYROXINEon Free T4 [Mass/Vol] 0.9 ng/dL 0.9 - 1.7 ng/dL [facility] T4 Free SerPl-mCncon 024 Free T4 [Mass/Vol] 0.9 ng/dL Normal 0.9-1.7 [facility] Comment on above: Order Comment: Speci men Type: BLOOD SPECIMENOrdering Facility: [facility] Address: [address] [place] [address] Performed By: #### 3 016-3, 3024-7 ####[facility] [id number] [place] [address] [place] THYROID STIMULATING HORMONEo n 06-07-2024 TSH Qn 0.968 m[IU]/L [facility] TSH SerPl-aCncon 06-07-2024 TSH Qn 0.968 m[IU]/L Normal 0.270-4.200 [facility] Comment on above: Order Comment: Speci men Type: BLOOD SPECIMENOrdering Facility: [facility] Address: [address] [place] [address] Performed By: #### 3 016-3, 3024-7 ####[facility] [id number] [place] [address] [place] [address] CHEST WO IVCONon 06-01-[address] CHEST WO IVCON * * *Final Report* * * DATE OF EXAM: Jun 01 2024 4:05PM [facility] [place] [place] CHEST [place] IVCON / PROCEDURE REASON: C34.90-Adenocarcinoma of lung, stage 4, unspecified laterality (HCC) * * * * Physician Interpretation * * * * EXAMINATION: CHEST CT WITHOUT CONTRAST CLINICAL HISTORY: Adenocarcinoma Technique: Spiral CT acquisition of the chest from the thoracic inlet to the upper abdomen without contrast. MQ: [id number] CT Radiation dose: Integrated Dose-length product (DLP) for this visit = 236 mGy*cm CT Dose Reduction Employed: Automated exposure control(AEC) and iterative recon Comparison: 04/21/2024 RESULT: Limitations: None. Lines, tubes, and devices: None. Lung parenchyma and airways: Emphysema mild, diffuse bronchiectasis. There is biapical fibrosis. Interval improvement of consolidative opacity within the apicoposterior segment of the left upper lobe and lingula, when compared the prior examination, which may relate to improving post therapy change; however, continued interval surveillance is recommended. Atelectasis is seen within the right middle lobe. Stable groundglass attenuation nodular opacity is seen within the anterior segment right upper lobe, measuring approximately 1.7 cm (series 2, image #172). Other groundglass attenuation nodule opacities are also stable. Pleural space: There is no pleural effusion. Lower neck, lymph nodes, and mediastinum: Again seen are surgical clips within the right lateral breast and right axilla. There are no pathologically enlarged axillary, mediastinal, or hilar lymph nodes. Heart, pericardium, and thoracic vessels: Atherosclerotic calcifications are present within thoracic aorta. Fatty hypertrophy of the intra-atrial septum. The heart is normal in size. Stable small pericardial effusion, when compared to the prior examination. Bones and soft tissues: There is scoliosis and multilevel degenerative change seen within the thoracic spine. A few presumed bone islands are seen in the osseous structures. Loose bodies about the left shoulder. Mild scoliosis of lumbar spine, convex to the left. Vacuum disc phenomena is seen at multiple levels. Stable mild compression deformity seen involving the T11 vertebral body, when compared to the prior examination. Again seen is a nonunited fracture involving the left lateral ninth rib. Upper abdomen: Contents are seen within the stomach. A few small splenules are incidentally noted within left upper quadrant. The gallbladder is relatively collapsed but is otherwise unremarkable. IMPRESSION: 1. Emphysema and mild, diffuse bronchiectasis. Interval improvement of consolidative opacity within the apicoposterior segment of the left upper lobe and lingula, when compared to the prior examination, which may relate to improving post therapy change; however, continued interval surveillance is recommended. 2. Stable groundglass attenuation nodular opacities within the right upper lobe, measuring up to 1.7 cm. 3. No mili lymphadenopathy is seen within the chest. Breakfast Cook: PSCB Transcribe Date/Time: Jun 03 2024 10:06A Dictated by : BISHOP GUY MD This examination was interpreted and the report reviewed and electronically signed by: BISHOP GUY MD on Jun 03 2024 10:14AM EST [id number] Normal [facility] CBC W Auto Differential pane l (Bld)on 05-14-2024 Erythrocyte distribution width (RBC) [Ratio] 15.5 % High 11.5 - 15.0 % [facility] Hematocrit (Bld) [Volume fraction] 40.8 % 36.0 - 46.0 % [facility] Hemoglobin (Bld) [Mass/Vol] 14.6 g/dL 11.5 - 15.5 g/dL [facility] Immature granulocytes (Bld) [#/Vol] 0.07 10*3/uL [facility] Interpretation and review of laboratory results Abnormal [facility] MCH (RBC) [Entitic mass] 35.4 pg High 26.0 - 34.0 pg [facility] MCHC (RBC) [Mass/Vol] 35.8 g/dL 30.5 - 36.0 g/dL [facility] MCV (RBC) [Entitic vol] 99.0 fL 80.0 - 100.0 fL [facility] Neutrophils (Bld) [#/Vol] 8.15 10*3/uL High [facility] Nucleated RBC (Bld) [#/Vol] [facility] Platelet mean volume (Bld) [Entitic vol] 8.1 fL Low 9.0 - 12.7 fL [facility] Platelets (Bld) [#/Vol] 362 10*3/uL [facility] RBC (Bld) [#/Vol] 4.12 10*6/uL 3.90 - 5.2 0 m/uL [facility] WBC (Bld) [#/Vol] 12.51 10*3/uL High [facility] Erythrocyte distribution width (RBC) [Ratio] 15.5 % High 11.5-15.0 [facility] Comment on above: Order Comment: Speci men Type: BLOOD SPECIMENOrdering Facility: [facility] Address: [address] [place] [address] Performed By: #### 5 7021-8 ####[facility] [id number] [place] [address] [place] Hematocrit (Bld) [Volume fraction] 40.8 % Normal 36.0-46.0 [facility] Comment on above: Order Comment: Speci men Type: BLOOD SPECIMENOrdering Facility: [facility] Address: [address] [place] [address] Performed By: #### 5 7021-8 ####[facility] [id number] [place] [address] [place] Hemoglobin (Bld) [Mass/Vol] 14.6 g/dL Normal 11.5-15.5 [facility] Comment on above: Order Comment: Speci men Type: BLOOD SPECIMENOrdering Facility: [facility] Address: [address] [place] [address] Performed By: #### 5 7021-8 ####[facility] [id number] [place] [address] [place] Immature granulocytes (Bld) [#/Vol] 0.07 10*3/uL Normal <0.10 [facility] Comment on above: Order Comment: Speci men Type: BLOOD SPECIMENOrdering Facility: [facility] Address: [address] [place] [address] Performed By: #### 5 7021-8 ####[facility] [id number] [place] [address] [place] MCH (RBC) [Entitic mass] 35.4 pg High 26.0-34.0 [facility] Comment on above: Order Comment: Speci men Type: BLOOD SPECIMENOrdering Facility: [facility] Address: [address] [place] [address] Performed By: #### 5 7021-8 ####[facility] [id number] [place] [address] [place] MCHC (RBC) [Mass/Vol] 35.8 g/dL Normal 30.5-36.0 [facility] Comment on above: Order Comment: Speci men Type: BLOOD SPECIMENOrdering Facility: [facility] Address: [address] [place] [address] Performed By: #### 5 7021-8 ####[facility] [id number] [place] [address] [place] MCV (RBC) [Entitic vol] 99.0 fL Normal 80.0-100.0 [facility] Comment on above: Order Comment: Speci men Type: BLOOD SPECIMENOrdering Facility: [facility] Address: [address] [place] [address] Performed By: #### 5 7021-8 ####[facility] [id number] [place] [address] [place] Neutrophils (Bld) [#/Vol] 8.15 10*3/uL High 1.45-7.50 [facility] Comment on above: Order Comment: Speci men Type: BLOOD SPECIMENOrdering Facility: [facility] Address: [address] [place] [address] Performed By: #### 5 7021-8 ####[facility] [id number] [place] [address] [place] Nucleated RBC (Bld) [#/Vol] 10*3/uL Normal <0.01 [facility] Comment on above: Order Comment: Speci men Type: BLOOD SPECIMENOrdering Facility: [facility] Address: [address] [place] [address] Performed By: #### 5 7021-8 ####[facility] [id number] [place] [address] [place] Platelet mean volume (Bld) [Entitic vol] 8.1 fL Low 9.0-12.7 [facility] Comment on above: Order Comment: Speci men Type: BLOOD SPECIMENOrdering Facility: [facility] Address: [address] [place] [address] Performed By: #### 5 7021-8 ####[facility] [id number] [place] [address] [place] Platelets (Bld) [#/Vol] 362 10*3/uL Normal 150-400 [facility] Comment on above: Order Comment: Speci men Type: BLOOD SPECIMENOrdering Facility: [facility] Address: [address] [place] [address] Performed By: #### 5 7021-8 ####[facility] [id number] [place] [address] [place] RBC (Bld) [#/Vol] 4.12 10*6/uL Normal 3.90-5.20 [facility] Comment on above: Order Comment: Speci men Type: BLOOD SPECIMENOrdering Facility: [facility] Address: [address] [place] [address] Performed By: #### 5 7021-8 ####[facility] [id number] [place] [address] [place] WBC (Bld) [#/Vol] 12.51 10*3/uL High 3.70-11.00 [facility] Comment on above: Order Comment: Speci men Type: BLOOD SPECIMENOrdering Facility: [facility] Address: [address] [place] [address] Performed By: #### 5 7021-8 ####[facility] [id number] [place] [id number] [place] CNOVSPon 05-14-2024 CNOVSP Normal [facility] metabolic 2000 panelon 05-14-2024 Albumin [Mass/Vol] 4.5 g/dL 3.9 - 4.9 g/dL [facility] ALP [Catalytic activity/Vol] 156 U/L High 34 - 123 U/L [facility] ALT [Catalytic activity/Vol] 64 U/L High 7 - 38 U/L [facility] Anion gap [Moles/Vol] 12 mmol/L 8 - 15 mmol/L [facility] AST [Catalytic activity/Vol] 45 U/L High 13 - 35 U/L [facility] Bilirubin [Mass/Vol] 0.2 mg/dL 0.2 - 1 .3 mg/dL [facility] Calcium [Mass/Vol] 9.8 mg/dL 8.5 - 10. 2 mg/dL [facility] Chloride [Moles/Vol] 103 mmol/L 98 - 10 7 mmol/L [facility] CO2 [Moles/Vol] 25 mmol/L 22 - 30 mmol/L [facility] Creatinine [Mass/Vol] 0.82 mg/dL 0.58 - 0.96 mg/dL [facility] GFR/1.73 sq M.predicted among non-blacks MDRD (S/P/Bld) [Vol rate/Area] 85 mL/min/{1.73_m2} - PINF [facility] Comment on above: Estimated Glomerular Filtration Rate (eGFR) is calculated using the 2020 CKD-EPI creatinine equation. This equation utilizes serum creatinine, sex, and age as parameters. The creatinine assay has traceable calibration to isotope dilution-mass spectrometry. Refer to KDIGO guidelines for clinical interpretation. In patients with unstable renal function, e.g. those with acute kidney injury, the eGFR may not accurately reflect actual GFR. Glucose [Mass/Vol] 97 mg/dL 74 - 99 mg/dL [facility] Comment on above: The [place] Diabete s Association (ADA) provides guidance for cutoff values for fasting glucose and random glucose. The ADA defines fasting as no caloric intake for at least 8 hours. Fasting plasma glucose results between 100 to 125 mg/dL indicate increased risk for diabetes (prediabetes). Fasting plasma glucose results greater than or equal to 126 mg/dL meet the criteria for diagnosis of diabetes. In the absence of unequivocal hyperglycemia, results should be confirmed by repeat testing. In a patient with classic symptoms of hyperglycemia or hyperglycemic crisis, random plasma glucose results greater than or equal to 200 mg/dL meet the criteria for diagnosis of diabetes. Reference: Standards of Medical Care in Diabetes 2016, [place] Diabetes Association. Diabetes Care. 2016.39(Suppl 1). Interpretation and review of laboratory results Abnormal [facility] Potassium [Moles/Vol] 3.9 mmol/L 3.7 - 5.1 mmol/L [facility] Protein [Mass/Vol] 7.7 g/dL 6.3 - 8.0 g/dL [facility] Sodium [Moles/Vol] 140 mmol/L 136 - 144 mmol/L [facility] Urea nitrogen [Mass/Vol] 13 mg/dL 7 - 21 mg/dL [facility] Albumin [Mass/Vol] 4.5 g/dL Normal 3.9-4.9 [facility] Comment on above: Order Comment: Speci men Type: BLOOD SPECIMENOrdering Facility: [facility] Address: [address] [place] [address] Performed By: #### 2 4323-8 ####[facility] [id number] [place] [address] [place] ALP [Catalytic activity/Vol] 156 U/L High 34-123 [facility] Comment on above: Order Comment: Speci men Type: BLOOD SPECIMENOrdering Facility: [facility] Address: [address] [place] [address] Performed By: #### 2 4323-8 ####[facility] [id number] [place] [address] [place] ALT [Catalytic activity/Vol] 64 U/L High 7-38 [facility] Comment on above: Order Comment: Speci men Type: BLOOD SPECIMENOrdering Facility: [facility] Address: [address] [place] [address] Performed By: #### 2 4323-8 ####[facility] [id number] [place] [address] [place] Anion gap [Moles/Vol] 12 mmol/L Normal 8-15 [facility] Comment on above: Order Comment: Speci men Type: BLOOD SPECIMENOrdering Facility: [facility] Address: [address] [place] [address] Performed By: #### 2 4323-8 ####[facility] [id number] [place] [address] [place] AST [Catalytic activity/Vol] 45 U/L High 13-35 [facility] Comment on above: Order Comment: Speci men Type: BLOOD SPECIMENOrdering Facility: [facility] Address: [address] [place] [address] Performed By: #### 2 4323-8 ####[facility] [id number] [place] [address] [place] Bilirubin [Mass/Vol] 0.2 mg/dL Normal 0.2-1.3 [facility] Comment on above: Order Comment: Speci men Type: BLOOD SPECIMENOrdering Facility: [facility] Address: [address] [place] [address] Performed By: #### 2 4323-8 ####[facility] [id number] [place] [address] [place] Calcium [Mass/Vol] 9.8 mg/dL Normal 8.5-10.2 [facility] Comment on above: Order Comment: Speci men Type: BLOOD SPECIMENOrdering Facility: [facility] Address: [address] [place] [address] Performed By: #### 2 4323-8 ####[facility] [id number] [place] [address] [place] Chloride [Moles/Vol] 103 mmol/L Normal 98-107 [facility] Comment on above: Order Comment: Speci men Type: BLOOD SPECIMENOrdering Facility: [facility] Address: [address] [place] [address] Performed By: #### 2 4323-8 ####[facility] [id number] [place] [address] [place] CO2 [Moles/Vol] 25 mmol/L Normal 22-30 [facility] Comment on above: Order Comment: Speci men Type: BLOOD SPECIMENOrdering Facility: [facility] Address: [address] [place] [address] Performed By: #### 2 4323-8 ####[facility] [id number] [place] [address] [place] Creatinine [Mass/Vol] 0.82 mg/dL Normal 0.58-0.96 [facility] Comment on above: Order Comment: Speci men Type: BLOOD SPECIMENOrdering Facility: [facility] Address: [address] [place] [address] Performed By: #### 2 4323-8 ####[facility] [id number] [place] [address] [place] Creatinine and Glomerular filtration rate.predicted panel (S/P/Bld) 85 mL/min/1.73m??? Normal >=60 [facility] Comment on above: Order Comment: Speci men Type: BLOOD SPECIMENOrdering Facility: [facility] Address: [address] [place] [address] Result Comment: Jina mated Glomerular Filtration Rate (eGFR) is calculated using the 2020 CKD-EPI creatinine equation. This equation utilizes serum creatinine, sex, and age as parameters. The creatinine assay has traceable calibration to isotope dilution-mass spectrometry. Refer to KDIGO guidelines for clinical interpretation. In patients with unstable renal function, e.g. those with acute kidney injury, the eGFR may not accurately reflect actual GFR. Performed By: #### 2 4323-8 ####[facility] [id number] [place] [address] [place] Glucose [Mass/Vol] 97 mg/dL Normal 74-99 [facility] Comment on above: Order Comment: Speci men Type: BLOOD SPECIMENOrdering Facility: [facility] Address: [address] [place] [address] Result Comment: The English Diabetes Association (ADA) provides guidance for cutoff values for fasting glucose and random glucose. The ADA defines fasting as no caloric intake for at least 8 hours. Fasting plasma glucose results between 100 to 125 mg/dL indicate increased risk for diabetes (prediabetes).Fasting plasma glucose results greater than or equal to 126 mg/dL meet the criteria for diagnosis of diabetes. In the absence of unequivocal hyperglycemia, results should be confirmed by repeat testing. In a patient with classic symptoms of hyperglycemia or hyperglycemic crisis, random plasma glucose results greater than or equal to 200 mg/dL meet the criteria for diagnosis of diabetes.Reference: Standards of Medical Care in Diabetes 2016, English Diabetes Association. Diabetes Care. 2016.39(Suppl 1). Performed By: #### 2 4323-8 ####[facility] [id number] [place] [address] [place] Potassium [Moles/Vol] 3.9 mmol/L Normal 3.7-5.1 [facility] Comment on above: Order Comment: Speci men Type: BLOOD SPECIMENOrdering Facility: [facility] Address: [address] [place] [address] Performed By: #### 2 4323-8 ####[facility] [id number] [place] [address] [place] Protein [Mass/Vol] 7.7 g/dL Normal 6.3-8.0 [facility] Comment on above: Order Comment: Speci men Type: BLOOD SPECIMENOrdering Facility: [facility] Address: [address] [place] [address] Performed By: #### 2 4323-8 ####[facility] [id number] [place] [address] [place] Sodium [Moles/Vol] 140 mmol/L Normal 136-144 [facility] Comment on above: Order Comment: Speci men Type: BLOOD SPECIMENOrdering Facility: [facility] Address: [address] [place] [address] Performed By: #### 2 4323-8 ####[facility] [id number] [place] [address] [place] Urea nitrogen [Mass/Vol] 13 mg/dL Normal 7-21 [facility] Comment on above: Order Comment: Speci men Type: BLOOD SPECIMENOrdering Facility: [facility] Address: [address] [place] [address] Performed By: #### 2 4323-8 ####[facility] [id number] [place] [address] [place] Free T4 [Mass/Vol]on Interpretation and review of laboratory results Abnormal [facility] No Panel Informationon 05-14 [facility] T4 FREE/FREE THYROXINEon Free T4 [Mass/Vol] 0.8 ng/dL Low 0.9 - 1.7 ng/dL [facility] T4 Free SerPl-mCncon 024 Free T4 [Mass/Vol] 0.8 ng/dL Low 0.9-1.7 [facility] Comment on above: Order Comment: Speci men Type: BLOOD SPECIMENOrdering Facility: [facility] Address: [address] [place] [address] Performed By: #### 3 024-7, 3016-3 ####[facility] [id number] [place] [address] [place] THYROID STIMULATING HORMONEo n 05-14-2024 TSH Qn 1.150 m[IU]/L [facility] TSH Qnon 05-14-2024 Interpretation and review of laboratory results Normal [facility] TSH SerPl-aCncon 05-14-2024 TSH Qn 1.150 m[IU]/L Normal 0.270-4.200 [facility] Comment on above: Order Comment: Speci men Type: BLOOD SPECIMENOrdering Facility: [facility] Address: [address] [place] [address] Performed By: #### 3 024-7, 3016-3 ####[facility] LABCLIA [id number] [facility] [place] [address] [place] CBC W Auto Differential pane l (Bld)on 04-23-2024 Erythrocyte distribution width (RBC) [Ratio] 15.8 % High 11.5 - 15.0 % [facility] Hematocrit (Bld) [Volume fraction] 42.0 % 36.0 - 46.0 % [facility] Hemoglobin (Bld) [Mass/Vol] 14.3 g/dL 11.5 - 15.5 g/dL [facility] Immature granulocytes (Bld) [#/Vol] 0.05 10*3/uL [facility] Interpretation and review of laboratory results Abnormal [facility] MCH (RBC) [Entitic mass] 34.6 pg High 26.0 - 34.0 pg [facility] MCHC (RBC) [Mass/Vol] 34.0 g/dL 30.5 - 36.0 g/dL [facility] MCV (RBC) [Entitic vol] 101.7 fL High 80.0 - 100.0 fL [facility] Neutrophils (Bld) [#/Vol] 5.67 10*3/uL [facility] Nucleated RBC (Bld) [#/Vol] [facility] Platelet mean volume (Bld) [Entitic vol] 8.0 fL Low 9.0 - 12.7 fL [facility] Platelets (Bld) [#/Vol] 405 10*3/uL High [facility] RBC (Bld) [#/Vol] 4.13 10*6/uL 3.90 - 5.2 0 m/uL [facility] WBC (Bld) [#/Vol] 9.38 10*3/uL [facility] Erythrocyte distribution width (RBC) [Ratio] 15.8 % High 11.5-15.0 [facility] Comment on above: Order Comment: Speci men Type: BLOOD SPECIMENOrdering Facility: [facility] Address: [address] [place] [address] Performed By: #### 5 7021-8 ####[facility] [id number] [place] [address] [place] Hematocrit (Bld) [Volume fraction] 42.0 % Normal 36.0-46.0 [facility] Comment on above: Order Comment: Speci men Type: BLOOD SPECIMENOrdering Facility: [facility] Address: [address] [place] [address] Performed By: #### 5 7021-8 ####[facility] [id number] [place] [address] [place] Hemoglobin (Bld) [Mass/Vol] 14.3 g/dL Normal 11.5-15.5 [facility] Comment on above: Order Comment: Speci men Type: BLOOD SPECIMENOrdering Facility: [facility] Address: [address] [place] [address] Performed By: #### 5 7021-8 ####[facility] [id number] [place] [address] [place] Immature granulocytes (Bld) [#/Vol] 0.05 10*3/uL Normal <0.10 [facility] Comment on above: Order Comment: Speci men Type: BLOOD SPECIMENOrdering Facility: [facility] Address: [address] [place] [address] Performed By: #### 5 7021-8 ####[facility] [id number] [place] [address] [place] MCH (RBC) [Entitic mass] 34.6 pg High 26.0-34.0 [facility] Comment on above: Order Comment: Speci men Type: BLOOD SPECIMENOrdering Facility: [facility] Address: [address] [place] [address] Performed By: #### 5 7021-8 ####[facility] [id number] [place] [address] [place] MCHC (RBC) [Mass/Vol] 34.0 g/dL Normal 30.5-36.0 [facility] Comment on above: Order Comment: Speci men Type: BLOOD SPECIMENOrdering Facility: [facility] Address: [address] [place] [address] Performed By: #### 5 7021-8 ####[facility] [id number] [place] [address] [place] MCV (RBC) [Entitic vol] 101.7 fL High 80.0-100.0 [facility] Comment on above: Order Comment: Speci men Type: BLOOD SPECIMENOrdering Facility: [facility] Address: [address] [place] [address] Performed By: #### 5 7021-8 ####[facility] [id number] [place] [address] [place] Neutrophils (Bld) [#/Vol] 5.67 10*3/uL Normal 1.45-7.50 [facility] Comment on above: Order Comment: Speci men Type: BLOOD SPECIMENOrdering Facility: [facility] Address: [address] [place] [address] Performed By: #### 5 7021-8 ####[facility] [id number] [place] [address] [place] Nucleated RBC (Bld) [#/Vol] 10*3/uL Normal <0.01 [facility] Comment on above: Order Comment: Speci men Type: BLOOD SPECIMENOrdering Facility: [facility] Address: [address] [place] [address] Performed By: #### 5 7021-8 ####[facility] [id number] [place] [address] [place] Platelet mean volume (Bld) [Entitic vol] 8.0 fL Low 9.0-12.7 [facility] Comment on above: Order Comment: Speci men Type: BLOOD SPECIMENOrdering Facility: [facility] Address: [address] [place] [address] Performed By: #### 5 7021-8 ####[facility] [id number] [place] [address] [place] Platelets (Bld) [#/Vol] 405 10*3/uL High 150-400 [facility] Comment on above: Order Comment: Speci men Type: BLOOD SPECIMENOrdering Facility: [facility] Address: [address] [place] [address] Performed By: #### 5 7021-8 ####[facility] [id number] [place] [address] [place] RBC (Bld) [#/Vol] 4.13 10*6/uL Normal 3.90-5.20 [facility] Comment on above: Order Comment: Speci men Type: BLOOD SPECIMENOrdering Facility: [facility] Address: [address] [place] [address] Performed By: #### 5 7021-8 ####[facility] [id number] [place] [address] [place] WBC (Bld) [#/Vol] 9.38 10*3/uL Normal 3.70-11.00 [facility] Comment on above: Order Comment: Speci men Type: BLOOD SPECIMENOrdering Facility: [facility] Address: [address] [place] [address] Performed By: #### 5 7021-8 ####[facility] [id number] [place] [address] [place] CNOVSPon 04-23-2024 CNOVSP Normal [facility] Comprehensive metabolic 2000 panelon 04-23-2024 Albumin [Mass/Vol] 4.6 g/dL 3.9 - 4.9 g/dL [facility] ALP [Catalytic activity/Vol] 162 U/L High 34 - 123 U/L [facility] ALT [Catalytic activity/Vol] 47 U/L High 7 - 38 U/L [facility] Anion gap [Moles/Vol] 11 mmol/L 8 - 15 mmol/L [facility] AST [Catalytic activity/Vol] 36 U/L High 13 - 35 U/L [facility] Bilirubin [Mass/Vol] 0.3 mg/dL 0.2 - 1 .3 mg/dL [facility] Calcium [Mass/Vol] 9.7 mg/dL 8.5 - 10. 2 mg/dL [facility] Chloride [Moles/Vol] 104 mmol/L 98 - 10 7 mmol/L [facility] CO2 [Moles/Vol] 26 mmol/L 22 - 30 mmol/L [facility] Creatinine [Mass/Vol] 0.87 mg/dL 0.58 - 0.96 mg/dL [facility] GFR/1.73 sq M.predicted among non-blacks MDRD (S/P/Bld) [Vol rate/Area] 79 mL/min/{1.73_m2} - PINF [facility] Comment on above: Estimated Glomerular Filtration Rate (eGFR) is calculated using the 2020 CKD-EPI creatinine equation. This equation utilizes serum creatinine, sex, and age as parameters. The creatinine assay has traceable calibration to isotope dilution-mass spectrometry. Refer to KDIGO guidelines for clinical interpretation. In patients with unstable renal function, e.g. those with acute kidney injury, the eGFR may not accurately reflect actual GFR. Glucose [Mass/Vol] 96 mg/dL 74 - 99 mg/dL [facility] Comment on above: The [place] Diabete s Association (ADA) provides guidance for cutoff values for fasting glucose and random glucose. The ADA defines fasting as no caloric intake for at least 8 hours. Fasting plasma glucose results between 100 to 125 mg/dL indicate increased risk for diabetes (prediabetes). Fasting plasma glucose results greater than or equal to 126 mg/dL meet the criteria for diagnosis of diabetes. In the absence of unequivocal hyperglycemia, results should be confirmed by repeat testing. In a patient with classic symptoms of hyperglycemia or hyperglycemic crisis, random plasma glucose results greater than or equal to 200 mg/dL meet the criteria for diagnosis of diabetes. Reference: Standards of Medical Care in Diabetes 2016, [place] Diabetes Association. Diabetes Care. 2016.39(Suppl 1). Interpretation and review of laboratory results Abnormal [facility] Potassium [Moles/Vol] 4.5 mmol/L 3.7 - 5.1 mmol/L [facility] Protein [Mass/Vol] 7.8 g/dL 6.3 - 8.0 g/dL [facility] Sodium [Moles/Vol] 141 mmol/L 136 - 144 mmol/L [facility] Urea nitrogen [Mass/Vol] 10 mg/dL 7 - 21 mg/dL [facility] Albumin [Mass/Vol] 4.6 g/dL Normal 3.9-4.9 [facility] Comment on above: Order Comment: Speci men Type: BLOOD SPECIMENOrdering Facility: [facility] Address: [address] [place] [address] Performed By: #### 2 4323-8 ####[facility] [id number] [place] [address] [place] ALP [Catalytic activity/Vol] 162 U/L High 34-123 [facility] Comment on above: Order Comment: Speci men Type: BLOOD SPECIMENOrdering Facility: [facility] Address: [address] [place] [address] Performed By: #### 2 4323-8 ####[facility] [id number] [place] [address] [place] ALT [Catalytic activity/Vol] 47 U/L High 7-38 [facility] Comment on above: Order Comment: Speci men Type: BLOOD SPECIMENOrdering Facility: [facility] Address: [address] [place] [address] Performed By: #### 2 4323-8 ####[facility] [id number] [place] [address] [place] Anion gap [Moles/Vol] 11 mmol/L Normal 8-15 [facility] Comment on above: Order Comment: Speci men Type: BLOOD SPECIMENOrdering Facility: [facility] Address: [address] [place] [address] Performed By: #### 2 4323-8 ####[facility] [id number] [place] [address] [place] AST [Catalytic activity/Vol] 36 U/L High 13-35 [facility] Comment on above: Order Comment: Speci men Type: BLOOD SPECIMENOrdering Facility: [facility] Address: [address] [place] [address] Performed By: #### 2 4323-8 ####[facility] [id number] [place] [address] [place] Bilirubin [Mass/Vol] 0.3 mg/dL Normal 0.2-1.3 [facility] Comment on above: Order Comment: Speci men Type: BLOOD SPECIMENOrdering Facility: [facility] Address: [address] [place] [address] Performed By: #### 2 4323-8 ####[facility] [id number] [place] [address] [place] Calcium [Mass/Vol] 9.7 mg/dL Normal 8.5-10.2 [facility] Comment on above: Order Comment: Speci men Type: BLOOD SPECIMENOrdering Facility: [facility] Address: [address] [place] [address] Performed By: #### 2 4323-8 ####[facility] [id number] [place] [address] [place] Chloride [Moles/Vol] 104 mmol/L Normal 98-107 [facility] Comment on above: Order Comment: Speci men Type: BLOOD SPECIMENOrdering Facility: [facility] Address: [address] [place] [address] Performed By: #### 2 4323-8 ####[facility] [id number] [place] [address] [place] CO2 [Moles/Vol] 26 mmol/L Normal 22-30 [facility] Comment on above: Order Comment: Speci men Type: BLOOD SPECIMENOrdering Facility: [facility] Address: [address] [place] [address] Performed By: #### 2 4323-8 ####[facility] [id number] [address] [place] [facility] Creatinine [Mass/Vol] 0.87 mg/dL Normal 0.58-0.96 [facility] Comment on above: Order Comment: Speci men Type: BLOOD SPECIMENOrdering Facility: [facility] Address: [address] [place] [address] Performed By: #### 2 4323-8 ####[facility] [id number] [address] [place] Creatinine and Glomerular filtration rate.predicted panel (S/P/Bld) 79 mL/min/1.73m??? Normal >=60 [facility] Comment on above: Order Comment: Eris men Type: BLOOD SPECIMENOrdering Facility: [facility] Address: [address] [place] [address] Result Comment: Jina mated Glomerular Filtration Rate (eGFR) is calculated using the 2020 CKD-EPI creatinine equation. This equation utilizes serum creatinine, sex, and age as parameters. The creatinine assay has traceable calibration to isotope dilution-mass spectrometry. Refer to KDIGO guidelines for clinical interpretation. In patients with unstable renal function, e.g. those with acute kidney injury, the eGFR may not accurately reflect actual GFR. Performed By: #### 2 4323-8 ####[facility] [id number] [place] [address] [place] Glucose [Mass/Vol] 96 mg/dL Normal 74-99 [facility] Comment on above: Order Comment: Pranavi men Type: BLOOD SPECIMENOrdering Facility: [facility] Address: [address] [place] [address] Result Comment: The [place] Diabetes Association (ADA) provides guidance for cutoff values for fasting glucose and random glucose. The ADA defines fasting as no caloric intake for at least 8 hours. Fasting plasma glucose results between 100 to 125 mg/dL indicate increased risk for diabetes (prediabetes).Fasting plasma glucose results greater than or equal to 126 mg/dL meet the criteria for diagnosis of diabetes. In the absence of unequivocal hyperglycemia, results should be confirmed by repeat testing. In a patient with classic symptoms of hyperglycemia or hyperglycemic crisis, random plasma glucose results greater than or equal to 200 mg/dL meet the criteria for diagnosis of diabetes.Reference: Standards of Medical Care in Diabetes 2016, [place] Diabetes Association. Diabetes Care. 2016.39(Suppl 1). Performed By: #### 2 4323-8 ####[facility] [id number] [place] [address] [place] Potassium [Moles/Vol] 4.5 mmol/L Normal 3.7-5.1 [facility] Comment on above: Order Comment: Speci men Type: BLOOD SPECIMENOrdering Facility: [facility] Address: [address] [place] [address] Performed By: #### 2 4323-8 ####[facility] [id number] [place] [address] [place] Protein [Mass/Vol] 7.8 g/dL Normal 6.3-8.0 [facility] Comment on above: Order Comment: Speci men Type: BLOOD SPECIMENOrdering Facility: [facility] Address: [address] [place] [address] Performed By: #### 2 4323-8 ####[facility] [id number] [place] [address] [place] Sodium [Moles/Vol] 141 mmol/L Normal 136-144 [facility] Comment on above: Order Comment: Speci men Type: BLOOD SPECIMENOrdering Facility: [facility] Address: [address] [place] [address] Performed By: #### 2 4323-8 ####[facility] [id number] [place] [address] [place] Urea nitrogen [Mass/Vol] 10 mg/dL Normal 7-21 [facility] Comment on above: Order Comment: Speci men Type: BLOOD SPECIMENOrdering Facility: [facility] Address: [address] [place] [address] Performed By: #### 2 4323-8 ####[facility] [id number] [place] [address] [place] No Panel Informationon 04-23 Interpretation and review of laboratory results Normal [facility] T4 FREE/FREE THYROXINEon Free T4 [Mass/Vol] 1.1 ng/dL 0.9 - 1.7 ng/dL [facility] T4 Free SerPl-mCncon 024 Free T4 [Mass/Vol] 1.1 ng/dL Normal 0.9-1.7 [facility] Comment on above: Order Comment: Speci men Type: BLOOD SPECIMENOrdering Facility: [facility] Address: [address] [place] [address] Performed By: #### 3 016-3, 3024-7 ####[facility] [id number] [place] [address] [place] THYROID STIMULATING HORMONEo n 04-23-2024 TSH Qn 1.010 m[IU]/L [facility] TSH SerPl-aCncon 04-23-2024 TSH Qn 1.010 m[IU]/L Normal 0.270-4.200 [facility] Comment on above: Order Comment: Speci men Type: BLOOD SPECIMENOrdering Facility: [facility] Address: [address] [place] [address] Performed By: #### 3 016-3, 3024-7 ####[facility] [id number] [place] [address] [place] CNOVon 04-22-2024 CNOV Normal [facility] MR Brain WO and W contrast I Von 04-22-2024 IMPRESSION: Interval resolution of the previously identified 2 mm focus of enhancement in the left temporal lobe at the site of treatment. No new areas of enhancement or vasogenic edema. No evidence of leptomeningeal disease. Perfusion CBV maps are normal. 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 TECHNIQUE: Routine brain MRI protocol without and with contrast including diffusion images. Perfusion with gadolinium. MQ: MRBWOW_2 Contrast: 16 mL dotarem IV COMPARISON: MRI brain from 01/08/2024. Localization MRI brain from 07/28/2023. RESULT: Acute Change: There is no evidence of restricted diffusion to suggest an acute infarct. Hemorrhage: There is subtle susceptibility artifact in the expected location of the previously treated left temporal metastasis (series 4 image 47). No other areas of abnormal susceptibility artifact are identified on the study. Mass Lesion/ Mass Effect: No evidence of an intracranial mass or extra-axial fluid collection. No abnormal parenchymal or leptomeningeal enhancement is noted following contrast administration. No significant mass effect. Perfusion CBV maps are negative Chronic Change: Scattered punctate foci of increased T2 and FLAIR signal are noted in the supratentorial white matter which is a nonspecific finding, but likely represents minimal chronic microvascular ischemia. Parenchyma: No significant volume loss for age. The brain parenchyma is otherwise within normal limits of signal intensity and morphology. Ventricles: Normal caliber and morphology. Skull Base: Hypothalamic and pituitary region are grossly normal. Craniocervical junction is normal. No significant marrow replacement process. Vasculature: Major intracranial arterial structures, and dural venous sinuses show typical flow void, suggesting patency by spin echo criteria. Other: The visualized paranasal sinuses and mastoid air cells are clear. The orbits and extracranial soft tissues are unremarkable. 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 TECHNIQUE: Routine brain MRI protocol without and with contrast including diffusion images. Perfusion with gadolinium. MQ: MRBWOW_2 Contrast: 16 mL dotarem IV COMPARISON: MRI brain from 01/08/2024. Localization MRI brain from 07/28/2023. RESULT: Acute Change: There is no evidence of restricted diffusion to suggest an acute infarct. Hemorrhage: There is subtle susceptibility artifact in the expected location of the previously treated left temporal metastasis (series 4 image 47). No other areas of abnormal susceptibility artifact are identified on the study. Mass Lesion/ Mass Effect: No evidence of an intracranial mass or extra-axial fluid collection. No abnormal parenchymal or leptomeningeal enhancement is noted following contrast administration. No significant mass effect. Perfusion CBV maps are negative Chronic Change: Scattered punctate foci of increased T2 and FLAIR signal are noted in the supratentorial white matter which is a nonspecific finding, but likely represents minimal chronic microvascular ischemia. Parenchyma: No significant volume loss for age. The brain parenchyma is otherwise within normal limits of signal intensity and morphology. Ventricles: Normal caliber and morphology. Skull Base: Hypothalamic and pituitary region are grossly normal. Craniocervical junction is normal. No significant marrow replacement process. Vasculature: Major intracranial arterial structures, and dural venous sinuses show typical flow void, suggesting patency by spin echo criteria. Other: The visualized paranasal sinuses and mastoid air cells are clear. The orbits and extracranial soft tissues are unremarkable. IMPRESSION IMPRESSION: Interval resolution of the previously identified 2 mm focus of enhancement in the left temporal lobe at the site of treatment. No new areas of enhancement or vasogenic edema. No evidence of leptomeningeal disease. Perfusion CBV maps are normal. 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 TECHNIQUE: Routine brain MRI protocol without and with contrast including diffusion images. Perfusion with gadolinium. MQ: MRBWOW_2 Contrast: 16 mL dotarem IV COMPARISON: MRI brain from 01/08/2024. Localization MRI brain from 07/28/2023. RESULT: Acute Change: There is no evidence of restricted diffusion to suggest an acute infarct. Hemorrhage: There is subtle susceptibility artifact in the expected location of the previously treated left temporal metastasis (series 4 image 47). No other areas of abnormal susceptibility artifact are identified on the study. Mass Lesion/ Mass Effect: No evidence of an intracranial mass or extra-axial fluid collection. No abnormal parenchymal or leptomeningeal enhancement is noted following contrast administration. No significant mass effect. Perfusion CBV maps are negative Chronic Change: Scattered punctate foci of increased T2 and FLAIR signal are noted in the supratentorial white matter which is a nonspecific finding, but likely represents minimal chronic microvascular ischemia. Parenchyma: No significant volume loss for age. The brain parenchyma is otherwise within normal limits of signal intensity and morphology. Ventricles: Normal caliber and morphology. Skull Base: Hypothalamic and pituitary region are grossly normal. Craniocervical junction is normal. No significant marrow replacement process. Vasculature: Major intracranial arterial structures, and dural venous sinuses show typical flow void, suggesting patency by spin echo criteria. Other: The visualized paranasal sinuses and mastoid air cells are clear. The orbits and extracranial soft tissues are unremarkable. IMPRESSION: Interval resolution of the previously identified 2 mm focus of enhancement in the left temporal lobe at the site of treatment. No new areas of enhancement or vasogenic edema. No evidence of leptomeningeal disease. Perfusion CBV maps are normal. Breakfast Cook: EVGENY Transcribe Date/Time: Apr 22 2024 11:24A Dictated by : SERGIO HANKINS MD This examination was interpreted and the report reviewed and electronically signed by: SERGIO HANKINS MD on Apr 22 2024 11:33AM EST [id number] [facility] NURSING PROGon 04-22-2024 NURSING PROG HNO ID: [id number] Author: ZURI GHOSH RN Service: Radiology Author Type: Registered Nurse Type: Nursing Progress Note Filed: 04/22/2024 10:09 Note Text: Radiology Service Progress Note DATE OF SERVICE: April 22, 2024 TIME: 10:09 AM PATIENT WEIGHT: 169 LBS PATIENT IDENTITY VERIFICATION COMPLETED USING TWO (2) STANDARD IDENTIFIERS: Name and Date of confirmed by patient verbally. FALL SCREENING: Has the patient had 2 falls in the last year or 1 fall with injury or currently using an Ambulatory Assistive Device (Walker, Cane, Wheelchair, Crutches, etc.)? No PATIENT GENDER DATA: Female. status: : No status: NO. ALLERGIES: Reviewed and unchanged CONTRAST ALLERGY: No EXAM: MRI - CONTRAST TYPE: GROUP II IV SITE: Ambulatory: A peripheral IV was started in the Left antecubital site with a Angio cath: 22 gauge. IV SITE APPEARANCE: Clean,Dry and Intact SIGNATURE: Zuri Ghosh RN PATIENT NAME: Lashell Segura DATE: April 22, 2024 TIME: 10:09 AM [facility] ALLIED HEALTHon 04-21-2024 ALLIED HEALTH HNO ID: [id number] Author: DELORIS HADDAD, JM Service: Radiology Author Type: Technologist Type: Allied Health Filed: 04/21/2024 15:49 Note Text: Radiology Service Progress Note PATIENT NAME: Lashell Segura DATE OF SERVICE: April 21, 2024 TIME: 3:48 PM PATIENT IDENTITY VERIFICATION COMPLETED USING TWO (2) IDENTIFIERS: Name and Date of confirmed by patient verbally and Name and Date of confirmed by identification band. FALL SCREENING: Has the patient had 2 falls in the last year or 1 fall with injury or currently using an Ambulatory Assistive Device (Walker, Cane, Wheelchair, Crutches, etc.)? No PATIENT GENDER DATA: Female. status: : No status: NO. PATIENT RELEVANT IMPLANT DATA REVIEWED: Not Applicable PATIENT PRESENTS WITH AN IMPLANTABLE OR ATTACHED CARPENTER APPRENTICE: No RADIOLOGY DEPARTMENT: CT; Exam(s) Completed: Chest PERIPHERAL IV DATA: Not applicable SIGNED BY: Sarina Cabrera CT April 21, 2024 3:48 PM [facility] CT CHEST WO IVCONon 04-21-20 CT CHEST WO IVCON * * *Final Report* * * DATE OF EXAM: Apr 21 2024 3:53PM [facility] [place] CHEST WO IVCON / PROCEDURE REASON: C34.90-Adenocarcinoma of lung, stage 4, unspecified laterality (HCC) * * * * Physician Interpretation * * * * EXAMINATION: CHEST CT WITHOUT CONTRAST CLINICAL HISTORY: Follow-up lung cancer Technique: Spiral CT acquisition of the chest from the thoracic inlet to the upper abdomen without contrast. MQ: CTCWO_6 CT Radiation dose: Integrated Dose-length product (DLP) for this visit = 342 mGy*cm CT Dose Reduction Employed: Automated exposure control(AEC) and iterative recon Comparison: 02/18/2024 RESULT: Limitations: None. Lines, tubes, and devices: None. Lung parenchyma and airways: Evaluation of lung parenchyma demonstrates consolidation in the left upper lobe/lingula with air bronchograms. There is narrowing and encasement of bronchi of the left upper lobe and lingula. Findings appear stable to minimally improved. Within the right lung are couple of subsolid/groundglass nodules. For example, there is a 1.7 cm groundglass nodule in the anterior right lower lobe as seen on image 65. This is unchanged. Within the superior segment of the right lower lobe is an 8.1 mm groundglass nodule on image 52. This is also unchanged. No new nodule is identified. Pleural space: No pleural effusion. No pleural thickening. Lower neck, lymph nodes, and mediastinum: The imaged thyroid gland is normal. No lymphadenopathy in the supraclavicular, axillary, mediastinal, or hilar regions. The soft tissue density in the left hilum is poorly visualized but grossly unchanged. Heart, pericardium, and thoracic vessels: The thoracic aorta and main pulmonary artery are normal in caliber. The cardiac chambers are normal in size. No coronary artery atherosclerotic calcifications are noted, although the study is not optimized for coronary assessment. No pericardial effusion or thickening. Bones and soft tissues: No destructive bone lesion. Chest wall is unremarkable. Upper abdomen: No abnormality in the imaged upper abdomen. Localizer images: No additional findings. IMPRESSION: 1. No significant change in the consolidation involving the left upper lobe/lingular segment. 2. A few stable groundglass nodules are present, most pronounced in the anterior right lower lobe as described above. Breakfast Cook: EVGENY Transcribe Date/Time: Apr 26 2024 7:04P Dictated by : DOMINGO BENAVIDES MD This examination was interpreted and the report reviewed and electronically signed by: DOMINGO BENAVIDES MD on Apr 26 2024 7:10PM EST [id number] Normal [facility] CBC W/Diff, Automatedon 03-25 ATYPICAL LYMPH 1+ Normal [facility] Comment on above: Performed By: #### L 100.0100, L500.4100, L500.4050 #### [facility] [address] [place], [address] Comprehensive Metabolic Prof [facility] 04-05-2024 Albumin [Mass/Vol] 3.7 g/dL Normal 3.2-5.0 [facility] Comment on above: Performed By: #### L 100.0100, L500.4100, L500.4050 #### [facility] [address] [place], [address] Albumin/Globulin [Mass ratio] 0.9 {ratio} Normal 0.9-2.4 [facility] Comment on above: Performed By: #### L 100.0100, L500.4100, L500.4050 #### [facility] [address] [place], [address] ALK P 128 U/L High 45-117 [facility] Comment on above: Performed By: #### L 100.0100, L500.4100, L500.4050 #### [facility] [address] [place], [address] ALT [Catalytic activity/Vol] 62 U/L High 13-56 [facility] Comment on above: Performed By: #### L 100.0100, L500.4100, L500.4050 #### [facility] [address] [place], [address] AST [Catalytic activity/Vol] 57 U/L High 15-37 [facility] Comment on above: Performed By: #### L 100.0100, L500.4100, L500.4050 #### [facility] [address] [place], [address] Bilirubin [Mass/Vol] 0.40 mg/dL Normal 0.20-1.00 [facility] Comment on above: Result Comment: For patients on eltrombopag therapy, use of Dimension [place] TBIL is not recommended. Performed By: #### L 100.0100, L500.4100, L500.4050 #### [facility] [address] [place], [address] BUN/CRE 15.9 RATIO Normal 10-20 [facility] Comment on above: Performed By: #### L 100.0100, L500.4100, L500.4050 #### [facility] [address] [place], [address] CA,Total 9.9 mg/dL Normal 8.5-10.1 [facility] Comment on above: Performed By: #### L 100.0100, L500.4100, L500.4050 #### [facility] [address] [place], [address] Chloride [Moles/Vol] 103 mmol/L Normal 98-107 [facility] Comment on above: Performed By: #### L 100.0100, L500.4100, L500.4050 #### [facility] [address] [place], [address] CO2 [Moles/Vol] 29.0 mmol/L Normal 21.0-32.0 [facility] Comment on above: Performed By: #### L 100.0100, L500.4100, L500.4050 #### [facility] [address] [place], [address] Creatinine [Mass/Vol] 0.94 mg/dL Normal 0.55-1.02 [facility] Comment on above: Result Comment: The validity of the calculated GFR GFRAA in patients over 70 years has not been determined. Clinical correlation is essential. Performed By: #### L 100.0100, L500.4100, L500.4050 #### [facility] [address] [place], [address] EST GFR - AA 79 mL/min Normal >60 [facility] Comment on above: Result Comment: Afri can English GFR Calc Performed By: #### L 100.0100, L500.4100, L500.4050 #### [facility] [address] [place], [address] GAP 6 Normal 5-15 [facility] Comment on above: Performed By: #### L 100.0100, L500.4100, L500.4050 #### [facility] [address] [place], [address] GFR/1.73 sq M.predicted among non-blacks MDRD (S/P/Bld) [Vol rate/Area] 65 mL/min/{1.73_m2} Normal >60 [facility] Comment on above: Result Comment: Non- GFR Calc Performed By: #### L 100.0100, L500.4100, L500.4050 #### [facility] [address] [place], [address] Globulin (S) [Mass/Vol] 3.9 g/dL Normal 2.2-4.2 [facility] Comment on above: Performed By: #### L 100.0100, L500.4100, L500.4050 #### [facility] [address] [place], [address] Glucose [Mass/Vol] 82 mg/dL Normal 74-106 [facility] Comment on above: Performed By: #### L 100.0100, L500.4100, L500.4050 #### [facility] [address] [place], [address] Potassium [Moles/Vol] 3.8 mmol/L Normal 3.5-5.1 [facility] Comment on above: Performed By: #### L 100.0100, L500.4100, L500.4050 #### [facility] [address] [place], [address] Sodium [Moles/Vol] 138 mmol/L Normal 136-145 [facility] Comment on above: Performed By: #### L 100.0100, L500.4100, L500.4050 #### [facility] [address] [place], [address] T PROT 7.6 g/dL Normal 6.4-8.2 [facility] Comment on above: Performed By: #### L 100.0100, L500.4100, L500.4050 #### [facility] [address] [place], [address] Urea nitrogen [Mass/Vol] 15 mg/dL Normal 7-18 [facility] Comment on above: Performed By: #### L 100.0100, L500.4100, L500.4050 #### [facility] [address] [place], [address] Lipid Profileon 04-05-2024 Cholesterol [Mass/Vol] 166 mg/dL Normal 200 [facility] Comment on above: Result Comment: <200 mg/dL Desirable 200-240 mg/dL Borderline >240 mg/dL High Risk Performed By: #### L 100.0100, L500.4100, L500.4050 #### [facility] [address] [place], [address] Cholesterol in HDL [Mass/Vol] 46 mg/dL Normal [facility] Comment on above: Result Comment: The drugs N-Acetylcysteine and Metamizole may falsely depress this assay. Reference Range HDL <40 mg/dL Low HDL Cholesterol HDL >or= 60 mg/dL High HDL Cholesterol Performed By: #### L 100.0100, L500.4100, L500.4050 #### [facility] [address] [place], [address] Cholesterol in LDL [Mass/Vol] 75 mg/dL Normal 0-130 [facility] Comment on above: Performed By: #### L 100.0100, L500.4100, L500.4050 #### [facility] [address] [place], [address] Cholesterol in VLDL [Mass/Vol] 45 mg/dL High 5-40 [facility] Comment on above: Performed By: #### L 100.0100, L500.4100, L500.4050 #### [facility] [address] [place], [address] Triglyceride [Mass/Vol] 225 mg/dL High [facility] Comment on above: Result Comment: The drugs N-Acetylcysteine and Metamizole may falsely depress this assay. Serum Triglycerides Reference Interval Normal <150 mg/dL Borderline high 150 - 199 mg/dL High 200 - 499 mg/dL Very High > or = 500 mg/dL Performed By: #### L 100.0100, L500.4100, L500.4050 #### [facility] [address] [place], [address] CBC W Auto Differential pane l (Bld)on 04-02-2024 Erythrocyte distribution width (RBC) [Ratio] 15.5 % High 11.5 - 15.0 % [facility] Hematocrit (Bld) [Volume fraction] 42.2 % 36.0 - 46.0 % [facility] Hemoglobin (Bld) [Mass/Vol] 14.6 g/dL 11.5 - 15.5 g/dL [facility] Immature granulocytes (Bld) [#/Vol] 0.06 10*3/uL [facility] Interpretation and review of laboratory results Abnormal [facility] MCH (RBC) [Entitic mass] 34.6 pg High 26.0 - 34.0 pg [facility] MCHC (RBC) [Mass/Vol] 34.6 g/dL 30.5 - 36.0 g/dL [facility] MCV (RBC) [Entitic vol] 100.0 fL 80.0 - 100.0 fL [facility] Neutrophils (Bld) [#/Vol] 6.98 10*3/uL [facility] Nucleated RBC (Bld) [#/Vol] [facility] Platelet mean volume (Bld) [Entitic vol] 8.1 fL Low 9.0 - 12.7 fL [facility] Platelets (Bld) [#/Vol] 388 10*3/uL [facility] RBC (Bld) [#/Vol] 4.22 10*6/uL 3.90 - 5.2 0 m/uL [facility] WBC (Bld) [#/Vol] 10.70 10*3/uL [facility] Erythrocyte distribution width (RBC) [Ratio] 15.5 % High 11.5-15.0 [facility] Comment on above: Order Comment: Speci men Type: BLOOD SPECIMENOrdering Facility: [facility] Address: [address] [place] [address] Performed By: #### 5 7021-8 ####[facility] [id number] [address] STATES OF [facility] Hematocrit (Bld) [Volume fraction] 42.2 % Normal 36.0-46.0 [facility] Comment on above: Order Comment: Speci men Type: BLOOD SPECIMENOrdering Facility: [facility] Address: [address] [place] [address] Performed By: #### 5 7021-8 ####[facility] [id number] [address] [place] Hemoglobin (Bld) [Mass/Vol] 14.6 g/dL Normal 11.5-15.5 [facility] Comment on above: Order Comment: Speci men Type: BLOOD SPECIMENOrdering Facility: [facility] Address: [address] [place] [address] Performed By: #### 5 7021-8 ####[facility] [id number] [place] [address] [place] Immature granulocytes (Bld) [#/Vol] 0.06 10*3/uL Normal <0.10 [facility] Comment on above: Order Comment: Speci men Type: BLOOD SPECIMENOrdering Facility: [facility] Address: [address] [place] [address] Performed By: #### 5 7021-8 ####[facility] [id number] [place] [address] [place] MCH (RBC) [Entitic mass] 34.6 pg High 26.0-34.0 [facility] Comment on above: Order Comment: Speci men Type: BLOOD SPECIMENOrdering Facility: [facility] Address: [address] [place] [address] Performed By: #### 5 7021-8 ####[facility] [id number] [place] [address] [place] MCHC (RBC) [Mass/Vol] 34.6 g/dL Normal 30.5-36.0 [facility] Comment on above: Order Comment: Speci men Type: BLOOD SPECIMENOrdering Facility: [facility] Address: [address] [place] [address] Performed By: #### 5 7021-8 ####[facility] [id number] [place] [address] [place] MCV (RBC) [Entitic vol] 100.0 fL Normal 80.0-100.0 [facility] Comment on above: Order Comment: Speci men Type: BLOOD SPECIMENOrdering Facility: [facility] Address: [address] [place] [address] Performed By: #### 5 7021-8 ####[facility] [id number] [place] [address] [place] Neutrophils (Bld) [#/Vol] 6.98 10*3/uL Normal 1.45-7.50 [facility] Comment on above: Order Comment: Speci men Type: BLOOD SPECIMENOrdering Facility: [facility] Address: [address] [place] [address] Performed By: #### 5 7021-8 ####[facility] [id number] [place] [address] [place] Nucleated RBC (Bld) [#/Vol] 10*3/uL Normal <0.01 [facility] Comment on above: Order Comment: Speci men Type: BLOOD SPECIMENOrdering Facility: [facility] Address: [address] [place] [address] Performed By: #### 5 7021-8 ####[facility] [id number] [place] [address] [place] Platelet mean volume (Bld) [Entitic vol] 8.1 fL Low 9.0-12.7 [facility] [facility] Comment on above: Order Comment: Speci men Type: BLOOD SPECIMENOrdering Facility: [facility] Address: [address] [place] [address] Performed By: #### 5 7021-8 ####[facility] [id number] [place] [address] [place] Platelets (Bld) [#/Vol] 388 10*3/uL Normal 150-400 [facility] Comment on above: Order Comment: Speci men Type: BLOOD SPECIMENOrdering Facility: [facility] Address: [address] [place] [address] Performed By: #### 5 7021-8 ####[facility] [id number] [place] [address] [place] RBC (Bld) [#/Vol] 4.22 10*6/uL Normal 3.90-5.20 [facility] Comment on above: Order Comment: Speci men Type: BLOOD SPECIMENOrdering Facility: [facility] Address: [address] [place] [address] Performed By: #### 5 7021-8 ####[facility] [id number] [place] [address] [place] WBC (Bld) [#/Vol] 10.70 10*3/uL Normal 3.70-11.00 [facility] Comment on above: Order Comment: Speci men Type: BLOOD SPECIMENOrdering Facility: [facility] Address: [address] [place] [address] Performed By: #### 5 7021-8 ####[facility] [id number] [place] [address] [place] CNOVSPon 04-02-2024 CNOVSP Normal [facility] Comprehensive metabolic 2000 panelon 04-02-2024 Albumin [Mass/Vol] 4.7 g/dL 3.9 - 4.9 g/dL [facility] ALP [Catalytic activity/Vol] 143 U/L High 34 - 123 U/L [facility] ALT [Catalytic activity/Vol] 38 U/L 7 - 38 U/L [facility] Anion gap [Moles/Vol] 12 mmol/L 8 - 15 mmol/L [facility] AST [Catalytic activity/Vol] 33 U/L 13 - 35 U/L [facility] Bilirubin [Mass/Vol] 0.2 mg/dL 0.2 - 1 .3 mg/dL [facility] Calcium [Mass/Vol] 10.1 mg/dL 8.5 - 10. 2 mg/dL [facility] Chloride [Moles/Vol] 98 mmol/L 98 - 10 7 mmol/L [facility] CO2 [Moles/Vol] 29 mmol/L 22 - 30 mmol/L [facility] Creatinine [Mass/Vol] 0.94 mg/dL 0.58 - 0.96 mg/dL [facility] GFR/1.73 sq M.predicted among non-blacks MDRD (S/P/Bld) [Vol rate/Area] 72 mL/min/{1.73_m2} - PINF [facility] Comment on above: Estimated Glomerular Filtration Rate (eGFR) is calculated using the 2020 CKD-EPI creatinine equation. This equation utilizes serum creatinine, sex, and age as parameters. The creatinine assay has traceable calibration to isotope dilution-mass spectrometry. Refer to KDIGO guidelines for clinical interpretation. In patients with unstable renal function, e.g. those with acute kidney injury, the eGFR may not accurately reflect actual GFR. Glucose [Mass/Vol] 88 mg/dL 74 - 99 mg/dL [facility] Comment on above: The English Diabete s Association (ADA) provides guidance for cutoff values for fasting glucose and random glucose. The ADA defines fasting as no caloric intake for at least 8 hours. Fasting plasma glucose results between 100 to 125 mg/dL indicate increased risk for diabetes (prediabetes). Fasting plasma glucose results greater than or equal to 126 mg/dL meet the criteria for diagnosis of diabetes. In the absence of unequivocal hyperglycemia, results should be confirmed by repeat testing. In a patient with classic symptoms of hyperglycemia or hyperglycemic crisis, random plasma glucose results greater than or equal to 200 mg/dL meet the criteria for diagnosis of diabetes. Reference: Standards of Medical Care in Diabetes 2016, English Diabetes Association. Diabetes Care. 2016.39(Suppl 1). Interpretation and review of laboratory results Abnormal [facility] Potassium [Moles/Vol] 3.7 mmol/L 3.7 - 5.1 mmol/L [facility] Protein [Mass/Vol] 7.8 g/dL 6.3 - 8.0 g/dL [facility] Sodium [Moles/Vol] 139 mmol/L 136 - 144 mmol/L [facility] Urea nitrogen [Mass/Vol] 13 mg/dL 7 - 21 mg/dL [facility] Albumin [Mass/Vol] 4.7 g/dL Normal 3.9-4.9 [facility] Comment on above: Order Comment: Speci men Type: BLOOD SPECIMENOrdering Facility: [facility] Address: [address] [place] [address] Performed By: #### 2 4323-8 ####[facility] [id number] [place] [address] [place] ALP [Catalytic activity/Vol] 143 U/L High 34-123 [facility] Comment on above: Order Comment: Speci men Type: BLOOD SPECIMENOrdering Facility: [facility] Address: [address] [place] [address] Performed By: #### 2 4323-8 ####[facility] [id number] [place] [address] [place] ALT [Catalytic activity/Vol] 38 U/L Normal 7-38 [facility] Comment on above: Order Comment: Speci men Type: BLOOD SPECIMENOrdering Facility: [facility] Address: [address] [place] [address] Performed By: #### 2 4323-8 ####[facility] [id number] [place] [address] [place] Anion gap [Moles/Vol] 12 mmol/L Normal 8-15 [facility] Comment on above: Order Comment: Speci men Type: BLOOD SPECIMENOrdering Facility: [facility] Address: [address] [place] [address] Performed By: #### 2 4323-8 ####[facility] [id number] [place] [address] [place] AST [Catalytic activity/Vol] 33 U/L Normal 13-35 [facility] Comment on above: Order Comment: Speci men Type: BLOOD SPECIMENOrdering Facility: [facility] Address: [address] [place] [address] Performed By: #### 2 4323-8 ####[facility] [id number] [place] [address] [place] Bilirubin [Mass/Vol] 0.2 mg/dL Normal 0.2-1.3 [facility] Comment on above: Order Comment: Speci men Type: BLOOD SPECIMENOrdering Facility: [facility] Address: [address] [place] [address] Performed By: #### 2 4323-8 ####[facility] [id number] [place] [address] [place] Calcium [Mass/Vol] 10.1 mg/dL Normal 8.5-10.2 [facility] Comment on above: Order Comment: Speci men Type: BLOOD SPECIMENOrdering Facility: [facility] Address: [address] [place] [address] Performed By: #### 2 4323-8 ####[facility] [id number] [place] [address] [place] Chloride [Moles/Vol] 98 mmol/L Normal 98-107 [facility] Comment on above: Order Comment: Speci men Type: BLOOD SPECIMENOrdering Facility: [facility] Address: [address] [place] [address] Performed By: #### 2 4323-8 ####[facility] [id number] [place] [address] [place] CO2 [Moles/Vol] 29 mmol/L Normal 22-30 [facility] Comment on above: Order Comment: Speci men Type: BLOOD SPECIMENOrdering Facility: [facility] Address: [address] [place] [address] Performed By: #### 2 4323-8 ####[facility] [id number] [place] [address] [place] Creatinine [Mass/Vol] 0.94 mg/dL Normal 0.58-0.96 [facility] Comment on above: Order Comment: Speci men Type: BLOOD SPECIMENOrdering Facility: [facility] Address: [address] [place] [address] Performed By: #### 2 4323-8 ####[facility] [id number] [place] [address] [place] Creatinine and Glomerular filtration rate.predicted panel (S/P/Bld) 72 mL/min/1.73m??? Normal >=60 [facility] Comment on above: Order Comment: Speci shemar Type: BLOOD SPECIMENOrdering Facility: [facility] Address: [address] [place] [address] Result Comment: Jina mated Glomerular Filtration Rate (eGFR) is calculated using the 2020 CKD-EPI creatinine equation. This equation utilizes serum creatinine, sex, and age as parameters. The creatinine assay has traceable calibration to isotope dilution-mass spectrometry. Refer to KDIGO guidelines for clinical interpretation. In patients with unstable renal function, e.g. those with acute kidney injury, the eGFR may not accurately reflect actual GFR. Performed By: #### 2 4323-8 ####[facility] [id number] [place] [address] [place] Glucose [Mass/Vol] 88 mg/dL Normal 74-99 [facility] Comment on above: Order Comment: Eris staton Type: BLOOD SPECIMENOrdering Facility: [facility] Address: [address] [place] [address] Result Comment: The English Diabetes Association (ADA) provides guidance for cutoff values for fasting glucose and random glucose. The ADA defines fasting as no caloric intake for at least 8 hours. Fasting plasma glucose results between 100 to 125 mg/dL indicate increased risk for diabetes (prediabetes).Fasting plasma glucose results greater than or equal to 126 mg/dL meet the criteria for diagnosis of diabetes. In the absence of unequivocal hyperglycemia, results should be confirmed by repeat testing. In a patient with classic symptoms of hyperglycemia or hyperglycemic crisis, random plasma glucose results greater than or equal to 200 mg/dL meet the criteria for diagnosis of diabetes.Reference: Standards of Medical Care in Diabetes 2016, English Diabetes Association. Diabetes Care. 2016.39(Suppl 1). Performed By: #### 2 4323-8 ####[facility] [id number] [place] [address] [place] Potassium [Moles/Vol] 3.7 mmol/L Normal 3.7-5.1 [facility] Comment on above: Order Comment: Speci men Type: BLOOD SPECIMENOrdering Facility: [facility] Address: [address] [place] [address] Performed By: #### 2 4323-8 ####[facility] [id number] [place] [address] [place] Protein [Mass/Vol] 7.8 g/dL Normal 6.3-8.0 [facility] Comment on above: Order Comment: Speci men Type: BLOOD SPECIMENOrdering Facility: [facility] Address: [address] [place] [address] Performed By: #### 2 4323-8 ####[facility] [id number] [place] [address] [place] Sodium [Moles/Vol] 139 mmol/L Normal 136-144 [facility] Comment on above: Order Comment: Speci men Type: BLOOD SPECIMENOrdering Facility: [facility] Address: [address] [place] [address] Performed By: #### 2 4323-8 ####[facility] [id number] [place] [address] [place] Urea nitrogen [Mass/Vol] 13 mg/dL Normal 7-21 [facility] Comment on above: Order Comment: Speci men Type: BLOOD SPECIMENOrdering Facility: [facility] Address: [address] [place] [address] Performed By: #### 2 4323-8 ####[facility] [id number] [place] [address] [place] No Panel Informationon 04-02 Interpretation and review of laboratory results Normal [facility] T4 FREE/FREE THYROXINEon Free T4 [Mass/Vol] 1.1 ng/dL 0.9 - 1.7 ng/dL [facility] T4 Free SerPl-mCncon 024 Free T4 [Mass/Vol] 1.1 ng/dL Normal 0.9-1.7 [facility] Comment on above: Order Comment: Speci men Type: BLOOD SPECIMENOrdering Facility: [facility] Address: [address] [place] [address] Performed By: #### 3 024-7, 3016-3 ####[facility] [id number] [place] [address] [place] THYROID STIMULATING HORMONEo n 04-02-2024 TSH Qn 0.614 m[IU]/L [facility] TSH SerPl-aCncon 04-02-2024 TSH Qn 0.614 m[IU]/L Normal 0.270-4.200 [facility] Comment on above: Order Comment: Speci men Type: BLOOD SPECIMENOrdering Facility: [facility] Address: [address] [place] [address] Performed By: #### 3 024-7, 3016-3 ####[facility] [id number] [place] [address] [place] CBC W Auto Differential pane l (Bld)on 03-12-2024 Erythrocyte distribution width (RBC) [Ratio] 15.7 % High 11.5 - 15.0 % [facility] Hematocrit (Bld) [Volume fraction] 43.5 % 36.0 - 46.0 % [facility] Hemoglobin (Bld) [Mass/Vol] 15.3 g/dL 11.5 - 15.5 g/dL [facility] Immature granulocytes (Bld) [#/Vol] 0.04 10*3/uL [facility] Interpretation and review of laboratory results Abnormal [facility] MCH (RBC) [Entitic mass] 34.9 pg High 26.0 - 34.0 pg [facility] MCHC (RBC) [Mass/Vol] 35.2 g/dL 30.5 - 36.0 g/dL [facility] MCV (RBC) [Entitic vol] 99.1 fL 80.0 - 100.0 fL [facility] Neutrophils (Bld) [#/Vol] 5.33 10*3/uL [facility] Nucleated RBC (Bld) [#/Vol] NINF [facility] Platelet mean volume (Bld) [Entitic vol] 8.6 fL Low 9.0 - 12.7 fL [facility] Platelets (Bld) [#/Vol] 353 10*3/uL [facility] RBC (Bld) [#/Vol] 4.39 10*6/uL 3.90 - 5.2 0 m/uL [facility] WBC (Bld) [#/Vol] 8.76 10*3/uL [facility] Comprehensive metabolic 2000 panelon 03-12-2024 Albumin [Mass/Vol] 4.9 g/dL 3.9 - 4.9 g/dL [facility] ALP [Catalytic activity/Vol] 135 U/L High 34 - 123 U/L [facility] ALT [Catalytic activity/Vol] 70 U/L High 7 - 38 U/L [facility] Anion gap [Moles/Vol] 11 mmol/L 8 - 15 mmol/L [facility] AST [Catalytic activity/Vol] 46 U/L High 13 - 35 U/L [facility] Bilirubin [Mass/Vol] 0.2 mg/dL 0.2 - 1 .3 mg/dL [facility] Calcium [Mass/Vol] 10.0 mg/dL 8.5 - 10. 2 mg/dL [facility] Chloride [Moles/Vol] 104 mmol/L 98 - 10 7 mmol/L [facility] CO2 [Moles/Vol] 28 mmol/L 22 - 30 mmol/L [facility] Creatinine [Mass/Vol] 0.89 mg/dL 0.58 - 0.96 mg/dL [facility] GFR/1.73 sq M.predicted among non-blacks MDRD (S/P/Bld) [Vol rate/Area] 77 mL/min/{1.73_m2} - PINF [facility] Comment on above: Estimated Glomerular Filtration Rate (eGFR) is calculated using the 2020 CKD-EPI creatinine equation. This equation utilizes serum creatinine, sex, and age as parameters. The creatinine assay has traceable calibration to isotope dilution-mass spectrometry. Refer to KDIGO guidelines for clinical interpretation. In patients with unstable renal function, e.g. those with acute kidney injury, the eGFR may not accurately reflect actual GFR. Glucose [Mass/Vol] 89 mg/dL 74 - 99 mg/dL [facility] Comment on above: The English Diabete s Association (ADA) provides guidance for cutoff values for fasting glucose and random glucose. The ADA defines fasting as no caloric intake for at least 8 hours. Fasting plasma glucose results between 100 to 125 mg/dL indicate increased risk for diabetes (prediabetes). Fasting plasma glucose results greater than or equal to 126 mg/dL meet the criteria for diagnosis of diabetes. In the absence of unequivocal hyperglycemia, results should be confirmed by repeat testing. In a patient with classic symptoms of hyperglycemia or hyperglycemic crisis, random plasma glucose results greater than or equal to 200 mg/dL meet the criteria for diagnosis of diabetes. Reference: Standards of Medical Care in Diabetes 2016, English Diabetes Association. Diabetes Care. 2016.39(Suppl 1). Interpretation and review of laboratory results Abnormal [facility] Potassium [Moles/Vol] 3.7 mmol/L 3.7 - 5.1 mmol/L [facility] Protein [Mass/Vol] 7.6 g/dL 6.3 - 8.0 g/dL [facility] Sodium [Moles/Vol] 143 mmol/L 136 - 144 mmol/L [facility] Urea nitrogen [Mass/Vol] 14 mg/dL 7 - 21 mg/dL [facility] No Panel Informationon 03-12 Interpretation and review of laboratory results Normal [facility] T4 FREE/FREE THYROXINEon Free T4 [Mass/Vol] 1.3 ng/dL 0.9 - 1.7 ng/dL [facility] THYROID STIMULATING HORMONEo n 03-12-2024 TSH Qn 0.815 m[IU]/L [facility] CNOVon 03-05-2024 CNOV Office Visit ([facility] ) [facility]AS[facility]URA ([id number]) 1970 [facility] Time Provider Department 03/05/24 10:40 AM MARK MCDONNELL During your visit today, we recorded the following information about you: Pulse Respiration Blood pressure Weight 98/minute 18/minute 116/87 81.6 kg Mark Mcdonnell MD 03/05/2024 10:53 AM Signed Summary of the things we discussed today: Continue Vimpat 150 mg twice a day Follow up in 6 months. Please call my office if you have more seizures or with any seizure related concerns. Seizure precautions - No driving in the state [facility] until seizure free for 6 months. Please check with local state authorities for state specific driving regulations. - No operating heavy machines - No swimming without supervision or bathing in a bathtub due to risk of drowning in the event of a seizure. Patient may shower. - Avoid unsafe heights, including ladders, due to risk of fall-related injury in the event of a seizure. - Seizure precipitating factors discussed including not taking seizure medications as prescribed, stress, excessive caffeine intake, energy drinks, alcohol, sleep deprivation or any identifiable seizure precipitating factor. Mark Mcdonnell MD Associate Staff, Epilepsy [facility] March 05, 2024 Office phone: [phone] Mark Mcdonnell MD 03/05/2024 10:58 AM Signed [facility] Patient Name: Lashell Segura Date of : 1970 ESTABLISHED EPILEPSY CLINIC NOTE 03/05/2024 10:40 AM Reason for Visit: Follow Up and Epilepsy Clinical Summary: Ms. Segura is a 53 year old left-handed Write, eats, throws left handed. Strong family h/o left handedness female seen in [facility]. EPILEPSY CLASSIFICATION Left Temporal Lobe Epilepsy Seizures: 1. Aphasic Seizure -> Right Versive Seizure -> Generalized Tonic-Clonic Seizure 2. Subclinical EEG Seizure (no clinical signs) Etiology: Tumor (Tumor - other) Metastatic brain tumor-lung NSCLC primary HISTORY OF PRESENT ILLNESS Handedness: left-handed Write, eats, throws left handed. Strong family h/o left handedness Age of onset: Seizure History and Evolution Symptoms started 07/19/2023. Per she had nonsensical speech, difficulty getting words out. She was confused. Initial concern was for stroke. She was taken to [place] ED where as per stroke code CT CTA was done which showed a left temporal mass lesion. While in the ED patient had a witnessed seizure-described as eyes deviated to the right, head turned to the right, generalized tonic-clonic seizure. She was given Ativan and loaded with Keppra. She was transferred [facility] for further evaluation of brain mass. MRI brain confirmed left temporal lesion suspected to be metastatic associated with edema. CT chest abdominal pelvis showed compressed nodule and lung mass. She underwent bronchoscopy on 07/22/2023 with preliminary results showing non-small cell lung carcinoma. She was started on continuous EEG monitoring which showed PLEDs in the left hemisphere as well as NCS seizures from the left frontotemporal region. Keppra was increased to 1500 mg BID She underwent gamma knife radiation surgery on 07/28/2023 followed by steroid taper. She follows with oncology team (Dr. Joleen Jiang). She was started on chemotherapy with Pembrolizumab, Pemetrexed, Carboplatin. Currently on Pemetrexed/Pembrolizum ab Most recent MRI in December 2023 shows near total resolution of T2 hyperintensity in the Left temporal region. Interval Seizure History No new seizures since last visit. Last seizure on 07/21/2024. Weaned off Keppra due to mood side-effects. Feels much better on Vimpat 150 mg BID. Total # of Current Anti-seizure Medications: Side Effects to Current Anti-seizure Medications: Seizure Frequency at First Visit: Longest Seizure-free Interval: Number of seizure types: 1 Hx of generalized tonic-clonic seizures: Yes Seizure-related driving accidents: No Driving: No Lives Alone: No CURRENT OUTPATIENT ANTISEIZURE MEDICATIONS (as of the start of the encounter) lacosamide (VIMPAT) 100 mg tab Take 1 tablet by mouth two times a day for 7 days, THEN 1.5 tablets two times a day for 21 days. lacosamide (VIMPAT) 150 mg tab Take 1 tablet by mouth two times a day for 180 days. Do not start before January 02, 2024. Prior Anti-seizure Therapies: Trial Adequacy: Max Daily Dose Achieved: Side Effects: Effectiveness: Comments: Levetiracetam Comorbidities: Minor: Brain Tumor Episode Description: SEIZURE TYPE 1: Aphasia-> right face clonic, right head deviation-> GTCS Description: Nonsensical speech for a few hours followed by right face, right head deviation and generalized tonic-clonic seizure. Loss of awareness: Duration: Frequen (more content not included)... Normal [facility] CBC W Auto Differential pane l (Bld)on 02-20-2024 Erythrocyte distribution width (RBC) [Ratio] 14.5 % 11.5 - 15.0 % [facility] Hematocrit (Bld) [Volume fraction] 40.8 % 36.0 - 46.0 % [facility] Hemoglobin (Bld) [Mass/Vol] 14.3 g/dL 11.5 - 15.5 g/dL [facility] Immature granulocytes (Bld) [#/Vol] 0.08 10*3/uL [facility] Interpretation and review of laboratory results Abnormal [facility] MCH (RBC) [Entitic mass] 34.6 pg High 26.0 - 34.0 pg [facility] MCHC (RBC) [Mass/Vol] 35.0 g/dL 30.5 - 36.0 g/dL [facility] MCV (RBC) [Entitic vol] 98.8 fL 80.0 - 100.0 fL [facility] Neutrophils (Bld) [#/Vol] 8.74 10*3/uL High [facility] Nucleated RBC (Bld) [#/Vol] [facility] Platelet mean volume (Bld) [Entitic vol] 8.4 fL Low 9.0 - 12.7 fL [facility] Platelets (Bld) [#/Vol] 475 10*3/uL High [facility] RBC (Bld) [#/Vol] 4.13 10*6/uL 3.90 - 5.2 0 m/uL [facility] WBC (Bld) [#/Vol] 12.71 10*3/uL High [facility] Comprehensive metabolic 2000 panelon 02-20-2024 Albumin [Mass/Vol] 4.7 g/dL 3.9 - 4.9 g/dL [facility] ALP [Catalytic activity/Vol] 146 U/L High 34 - 123 U/L [facility] ALT [Catalytic activity/Vol] 122 U/L High 7 - 38 U/L [facility] Anion gap [Moles/Vol] 16 mmol/L High 8 - 15 mmol/L [facility] AST [Catalytic activity/Vol] 87 U/L High 13 - 35 U/L [facility] Bilirubin [Mass/Vol] 0.2 mg/dL 0.2 - 1 .3 mg/dL [facility] Calcium [Mass/Vol] 10.0 mg/dL 8.5 - 10. 2 mg/dL [facility] Chloride [Moles/Vol] 103 mmol/L 98 - 10 7 mmol/L [facility] CO2 [Moles/Vol] 21 mmol/L Low 22 - 30 mmol/L [facility] Creatinine [Mass/Vol] 0.78 mg/dL 0.58 - 0.96 mg/dL [facility] GFR/1.73 sq M.predicted among non-blacks MDRD (S/P/Bld) [Vol rate/Area] 90 mL/min/{1.73_m2} - PINF [facility] Comment on above: Estimated Glomerular Filtration Rate (eGFR) is calculated using the 2020 CKD-EPI creatinine equation. This equation utilizes serum creatinine, sex, and age as parameters. The creatinine assay has traceable calibration to isotope dilution-mass spectrometry. Refer to KDIGO guidelines for clinical interpretation. In patients with unstable renal function, e.g. those with acute kidney injury, the eGFR may not accurately reflect actual GFR. Glucose [Mass/Vol] 120 mg/dL High 74 - 99 mg/dL [facility] Comment on above: The [place] Diabete s Association (ADA) provides guidance for cutoff values for fasting glucose and random glucose. The ADA defines fasting as no caloric intake for at least 8 hours. Fasting plasma glucose results between 100 to 125 mg/dL indicate increased risk for diabetes (prediabetes). Fasting plasma glucose results greater than or equal to 126 mg/dL meet the criteria for diagnosis of diabetes. In the absence of unequivocal hyperglycemia, results should be confirmed by repeat testing. In a patient with classic symptoms of hyperglycemia or hyperglycemic crisis, random plasma glucose results greater than or equal to 200 mg/dL meet the criteria for diagnosis of diabetes. Reference: Standards of Medical Care in Diabetes 2016, English Diabetes Association. Diabetes Care. 2016.39(Suppl 1). Interpretation and review of laboratory results Abnormal [facility] Potassium [Moles/Vol] 3.4 mmol/L Low 3.7 - 5.1 mmol/L [facility] Protein [Mass/Vol] 7.5 g/dL 6.3 - 8.0 g/dL [facility] Sodium [Moles/Vol] 140 mmol/L 136 - 144 mmol/L [facility] Urea nitrogen [Mass/Vol] 19 mg/dL 7 - 21 mg/dL [facility] No Panel Informationon 02-19 Interpretation and review of laboratory results Normal [facility] T4 FREE/FREE THYROXINEon Free T4 [Mass/Vol] 1.0 ng/dL 0.9 - 1.7 ng/dL [facility] THYROID STIMULATING HORMONEo n 02-20-2024 TSH Qn 0.769 m[IU]/L [facility] CT CHEST WO IVCONon 02-18-[address] CHEST WO IVCON * * *Final Report* * * DATE OF EXAM: Feb 18 2024 3:37PM [facility] [place] CHEST WO IVCON / PROCEDURE REASON: C34.90-Malignant neoplasm of unspecified part of unspecified bronchus or lung (H * * * * Physician Interpretation * * * * EXAMINATION: CHEST CT WITHOUT CONTRAST CLINICAL HISTORY: Lung cancer Technique: Spiral CT acquisition of the chest from the thoracic inlet to the upper abdomen without contrast. MQ: CTCWO_6 CT Radiation dose: Integrated Dose-length product (DLP) for this visit = 292 mGy*cm CT Dose Reduction Employed: Automated exposure control(AEC) and iterative recon Comparison: CT chest 11/26/2023 RESULT: Limitations: None. Lines, tubes, and devices: None. Lung parenchyma and airways: Decreased size of a consolidation in the left upper lobe and lingula with air bronchograms. There is narrowing and encasement of bronchi to the left upper lobe and lingula. Again noted are multiple bilateral solid and groundglass pulmonary nodules. For example: *7 mm nodule posterior right upper lobe (301:85) *9 mm nodule posterior right middle lobe (301:122) *1.8 x 1.6 cm groundglass nodule anterior right lower lobe (301:134), previously 1.5 x 1.3 cm *5 mm nodule left lower lobe (301:113) Mild emphysematous changes. Bilateral bronchial wall thickening. Pleural space: No pleural effusion. No pleural thickening. Lower neck, lymph nodes, and mediastinum: The imaged thyroid gland is normal. Unchanged ill-defined left perihilar soft tissue density material. Subcentimeter paratracheal lymph nodes. Previously described right hilar lymph node is not well-visualized due to lack of IV contrast. Heart, pericardium, and thoracic vessels: The thoracic aorta and main pulmonary artery are normal in caliber. The cardiac chambers are normal in size. No coronary artery atherosclerotic calcifications are noted, although the study is not optimized for coronary assessment. Small pericardial effusion. Bones and soft tissues: Remote compression deformity of the vertebral body of T11. No new destructive osseous lesion. Degenerative disease of the thoracic spine. Surgical clips in the right breast and axillary region. There is a new fat stranding in the right axilla, likely due to a recent biopsy. Upper abdomen: No abnormality in the imaged upper abdomen. Localizer images: No additional findings. IMPRESSION: 1. Decreased size of a consolidation in the left upper lobe and lingula 2. Increased size of a groundglass nodule in the anterior right lower lobe. Other pulmonary nodules appear unchanged 3. Ill-defined soft tissue density material in the left hilum appears unchanged. Previously described right hilar lymph node is not well-visualized due to lack of IV contrast. Breakfast Cook: ROBERT[facility] [place] Transcribe Date/Time: Feb 24 2024 3:33P Dictated by : JESSICA RADFORD MD This examination was interpreted and the report reviewed and electronically signed by: JESSICA RADFORD MD on Feb 24 2024 3:55PM EST [id number] Normal [facility] CBC W Auto Differential pane l (Bld)on 01-29-2024 Basophils (Bld) [#/Vol] 0.00 10*3/uL [facility] Basophils/100 WBC (Bld) 0.0 % [facility] Differential cell count method Nom (Bld) Manual [facility] Eosinophils (Bld) [#/Vol] 0.00 10*3/uL [facility] Eosinophils/100 WBC (Bld) 0.0 % [facility] Erythrocyte distribution width (RBC) [Ratio] 12.6 % 11.5 - 15.0 % [facility] Hematocrit (Bld) [Volume fraction] 18.0 % Low 36.0 - 46.0 % [facility] Hemoglobin (Bld) [Mass/Vol] 5.6 g/dL Critically low 11.5 - 15.5 g/dL [facility] Comment on above: No clot detected. Interpretation and review of laboratory results Abnormal [facility] Lymphocytes (Bld) [#/Vol] 1.44 10*3/uL [facility] Lymphocytes/100 WBC (Bld) 29.0 % [facility] MCH (RBC) [Entitic mass] 33.3 pg 26.0 - 34.0 pg [facility] MCHC (RBC) [Mass/Vol] 31.1 g/dL 30.5 - 36.0 g/dL [facility] MCV (RBC) [Entitic vol] 107.1 fL High 80.0 - 100.0 fL [facility] Monocytes (Bld) [#/Vol] 0.15 10*3/uL [facility] Monocytes/100 WBC (Bld) 3.0 % [facility] Neutrophils (Bld) [#/Vol] 3.37 10*3/uL [facility] Neutrophils/100 WBC (Bld) 68.0 % [facility] Nucleated RBC (Bld) [#/Vol] [facility] Nucleated RBC/100 WBC (Bld) [Ratio] 0.0 % /100 WBC [facility] Ovalocytes LM Ql (Bld) Few Cl [facility] Platelet mean volume (Bld) [Entitic vol] 8.9 fL Low 9.0 - 12.7 fL [facility] Platelets (Bld) [#/Vol] 101 10*3/uL Low [facility] Platelets Estimate (Bld) [#/Vol] Decreased [facility] RBC (Bld) [#/Vol] 1.68 10*6/uL Low 3.90 - 5.2 0 m/uL [facility] Red Cell Morph Reviewed: see result s of individual morphologies [facility] WBC (Bld) [#/Vol] 4.96 10*3/uL [facility] This is an appended report. These results have been appended to a previously verified report. [facility] Comprehensive metabolic 2000 panelon 01-29-2024 Albumin [Mass/Vol] 4.2 g/dL 3.9 - 4.9 g/dL [facility] ALP [Catalytic activity/Vol] 112 U/L 34 - 123 U/L [facility] ALT [Catalytic activity/Vol] 31 U/L 7 - 38 U/L [facility] Comment on above: Results may be false ly increased due to interference from hemolysis. Suggest reorder as clinically indicated. Anion gap [Moles/Vol] 10 mmol/L 8 - 15 mmol/L [facility] AST [Catalytic activity/Vol] 55 U/L High 13 - 35 U/L [facility] Comment on above: Results may be false ly increased due to interference from hemolysis. Suggest reorder as clinically indicated. Bilirubin [Mass/Vol] 0.2 mg/dL 0.2 - 1 .3 mg/dL [facility] Calcium [Mass/Vol] 8.9 mg/dL 8.5 - 10. 2 mg/dL [facility] Chloride [Moles/Vol] 106 mmol/L 98 - 10 7 mmol/L [facility] CO2 [Moles/Vol] 21 mmol/L Low 22 - 30 mmol/L [facility] Creatinine [Mass/Vol] 0.73 mg/dL 0.58 - 0.96 mg/dL [facility] GFR/1.73 sq M.predicted among non-blacks MDRD (S/P/Bld) [Vol rate/Area] 97 mL/min/{1.73_m2} - PINF [facility] Comment on above: Estimated Glomerular Filtration Rate (eGFR) is calculated using the 2020 CKD-EPI creatinine equation. This equation utilizes serum creatinine, sex, and age as parameters. The creatinine assay has traceable calibration to isotope dilution-mass spectrometry. Refer to KDIGO guidelines for clinical interpretation. In patients with unstable renal function, e.g. those with acute kidney injury, the eGFR may not accurately reflect actual GFR. Glucose [Mass/Vol] 153 mg/dL High 74 - 99 mg/dL [facility] Comment on above: The English Diabete s Association (ADA) provides guidance for cutoff values for fasting glucose and random glucose. The ADA defines fasting as no caloric intake for at least 8 hours. Fasting plasma glucose results between 100 to 125 mg/dL indicate increased risk for diabetes (prediabetes). Fasting plasma glucose results greater than or equal to 126 mg/dL meet the criteria for diagnosis of diabetes. In the absence of unequivocal hyperglycemia, results should be confirmed by repeat testing. In a patient with classic symptoms of hyperglycemia or hyperglycemic crisis, random plasma glucose results greater than or equal to 200 mg/dL meet the criteria for diagnosis of diabetes. Reference: Standards of Medical Care in Diabetes 2016, English Diabetes Association. Diabetes Care. 2016.39(Suppl 1). Interpretation and review of laboratory results Abnormal [facility] Potassium [Moles/Vol] [facility] Comment on above: Unable to assay due to interference from hemolysis. Suggest reorder as clinically indicated. Protein [Mass/Vol] 6.8 g/dL 6.3 - 8.0 g/dL [facility] Sodium [Moles/Vol] 137 mmol/L 136 - 144 mmol/L [facility] Urea nitrogen [Mass/Vol] 15 mg/dL 7 - 21 mg/dL [facility] Laboratory - Chemistry and C hemistry - challengeon 01-29-2024 TSH Qn 0.558 m[IU]/L [facility] TSH Qnon 01-29-2024 Interpretation and review of laboratory results Normal [facility] MR Brain WO and W contrast I Von 01-08-2024 IMPRESSION: Near complete resolution of the enhancing lesion previously identified adjacent to the anterior aspect of the left superior temporal sulcus. No new lesions. No evidence of leptomeningeal disease. No perfusion abnormalities. 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 TECHNIQUE: Routine brain MRI protocol without and with contrast including diffusion images. Perfusion with gadolinium. MQ: MRBWOW_2 Contrast: 16 mL Dotarem IV COMPARISON: Stereotactic MRI brain from 07/28/2023. RESULT: Acute Change: There is no evidence of restricted diffusion to suggest an acute infarct. Hemorrhage: No evidence of prior parenchymal hemorrhage on the gradient echo images. Mass Lesion/ Mass Effect: Interval decrease in size of previously identified 7 x 4 mm left temporal enhancing lesion which on today's examination measures 1 x 2 mm (series 14 images 101-102). The previously identified moderate surrounding the neurogenic edema has resolved. No significant mass effect. No new enhancing lesions. No evidence of leptomeningeal disease. Perfusion CBV maps are normal. Chronic Change: The white matter is within normal limits of signal intensity for age. Parenchyma: No significant volume loss for age. The brain parenchyma is otherwise within normal limits of signal intensity and morphology. Ventricles: Normal caliber and morphology. Skull Base: Hypothalamic and pituitary region are grossly normal. Craniocervical junction is normal. No significant marrow replacement process. Vasculature: Major intracranial arterial structures, and dural venous sinuses show typical flow void, suggesting patency by spin echo criteria. Other: The visualized paranasal sinuses and mastoid air cells are clear. The orbits and extracranial soft tissues are unremarkable. 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 TECHNIQUE: Routine brain MRI protocol without and with contrast including diffusion images. Perfusion with gadolinium. MQ: MRBWOW_2 Contrast: 16 mL Dotarem IV COMPARISON: Stereotactic MRI brain from 07/28/2023. RESULT: Acute Change: There is no evidence of restricted diffusion to suggest an acute infarct. Hemorrhage: No evidence of prior parenchymal hemorrhage on the gradient echo images. Mass Lesion/ Mass Effect: Interval decrease in size of previously identified 7 x 4 mm left temporal enhancing lesion which on today's examination measures 1 x 2 mm (series 14 images 101-102). The previously identified moderate surrounding the neurogenic edema has resolved. No significant mass effect. No new enhancing lesions. No evidence of leptomeningeal disease. Perfusion CBV maps are normal. Chronic Change: The white matter is within normal limits of signal intensity for age. Parenchyma: No significant volume loss for age. The brain parenchyma is otherwise within normal limits of signal intensity and morphology. Ventricles: Normal caliber and morphology. Skull Base: Hypothalamic and pituitary region are grossly normal. Craniocervical junction is normal. No significant marrow replacement process. Vasculature: Major intracranial arterial structures, and dural venous sinuses show typical flow void, suggesting patency by spin echo criteria. Other: The visualized paranasal sinuses and mastoid air cells are clear. The orbits and extracranial soft tissues are unremarkable. IMPRESSION IMPRESSION: Near complete resolution of the enhancing lesion previously identified adjacent to the anterior aspect of the left superior temporal sulcus. No new lesions. No evidence of leptomeningeal disease. No perfusion abnormalities. Breakfast Cook: [facility] Transcribe Date/Time: Jan 08 2024 1:48P Dictated by : SERGIO HANKINS MD This examination was interpreted and the report reviewed and electronically signed by: SERGIO HANKINS MD on Jan 08 2024 1:52PM EST [facility] Radiology Study observation (narrative) [facility] MR Brain WO and W contrast I VOrdered By: [facility] Provider on 01-08-2024 [facility] NM Lymph node Viewson 2023 IMPRESSION: Right breast radiotracer injection. Breakfast Cook: [facility] [place] Transcribe Date/Time: Jan 06 2024 8:12A Dictated by : CLAUDIO RUIZ MD This examination was interpreted and the report reviewed and electronically signed by: CLAUDIO RUIZ MD on Jan 06 2024 8:14AM [facility] DIVISION OF RADIOLOGY * * *Final Report* * * DATE OF EXAM: Jan 06 2024 7:56AM STN 2190 - NM INJ SENT NODE BREAST RT / PROCEDURE REASON: multiple diagnoses * * * * Physician Interpretation * * * * BREAST LYMPHOSCINTIGRAPHY: HISTORY: Breast cancer. TECHNIQUE: Prior to radiopharmaceutical administration, the injection site was verified with the electronic medical record and with the nuclear weapons custodian. 495 microcuries of filtered technetium-99m sulfur colloid combined with 40 mg Lidocaine were injected in three aliquots into the retroareolar tissue of the right breast. RESULT: No imaging was obtained. DIVISION OF RADIOLOGY Provider, [facility] - 01/06/2024 * * *Final Report* * * DATE OF EXAM: Jan 06 2024 7:56AM [facility]N 2190 - NM INJ SENT NODE BREAST RT / PROCEDURE REASON: multiple diagnoses * * * * Physician Interpretation * * * * BREAST LYMPHOSCINTIGRAPHY: HISTORY: Breast cancer. TECHNIQUE: Prior to radiopharmaceutical administration, the injection site was verified with the electronic medical record and with the nuclear weapons custodian. 495 microcuries of filtered technetium-99m sulfur colloid combined with 40 mg Lidocaine were injected in three aliquots into the retroareolar tissue of the right breast. RESULT: No imaging was obtained. IMPRESSION IMPRESSION: Right breast radiotracer injection. Breakfast Cook: [facility]ERT[facility] [place] Transcribe Date/Time: Jan 06 2024 8:12A Dictated by : CLAUDIO RUIZ MD This examination was interpreted and the report reviewed and electronically signed by: CLAUDIO RUIZ MD on Jan 06 2024 8:14AM EST [facility] Radiology Study observation (narrative) [facility] NM Lymph node ViewsOrdered B y: [facility] Provider on 01-06-2024 [facility] XR Chest PA and Lateralon IMPRESSION: Hazy and patchy opacities in the left lung, pulmonary infiltrates versus atelectasis. Breakfast Cook: [facility] [place] Transcribe Date/Time: Dec 30 2023 2:28P Dictated by : JANEE CHIRINOS MD This examination was interpreted and the report reviewed and electronically signed by: JANEE CHIRINOS MD on Dec 30 2023 2:29PM [facility] DIVISION OF RADIOLOGY * * *Final Report* * * DATE OF EXAM: Dec 29 2023 12:46PM [facility]X 5291 - XR CHEST 2V FRONTAL/LAT / PROCEDURE REASON: multiple diagnoses * * * * Physician Interpretation * * * * EXAMINATION: CHEST RADIOGRAPH (2 VIEW FRONTAL & LATERAL) CLINICAL HISTORY: Pre-op evaluation Seizure (HCC) MQ: XC2_6 EXAM DATE/TIME: 12/29/2023 12:46 PM COMPARISON: Chest x-ray on 07/19/2023 RESULT: Lines, tubes, and devices: None. Lungs and pleura: Left upper to midlung hazy and patchy opacities are visualized. On lateral view, seen is a band like opacity. The right lung is clear. No solid mass lesions seen. No pleural effusions or pneumothorax. Cardiomediastinal silhouette: Normal cardiomediastinal silhouette. Bones and soft tissues: Unremarkable. DIVISION OF RADIOLOGY Provider, [facility] - 12/30/2023 * * *Final Report* * * DATE OF EXAM: Dec 29 2023 12:46PM [facility]X 5291 - XR CHEST 2V FRONTAL/LAT / PROCEDURE REASON: multiple diagnoses * * * * Physician Interpretation * * * * EXAMINATION: CHEST RADIOGRAPH (2 VIEW FRONTAL & LATERAL) CLINICAL HISTORY: Pre-op evaluation Seizure (HCC) MQ: XC2_6 EXAM DATE/TIME: 12/29/2023 12:46 PM COMPARISON: Chest x-ray on 07/19/2023 RESULT: Lines, tubes, and devices: None. Lungs and pleura: Left upper to midlung hazy and patchy opacities are visualized. On lateral view, seen is a band like opacity. The right lung is clear. No solid mass lesions seen. No pleural effusions or pneumothorax. Cardiomediastinal silhouette: Normal cardiomediastinal silhouette. Bones and soft tissues: Unremarkable. IMPRESSION IMPRESSION: Hazy and patchy opacities in the left lung, pulmonary infiltrates versus atelectasis. Breakfast Cook: EVGENY Transcribe Date/Time: Dec 30 2023 2:28P Dictated by : JANEE CHIRINOS MD This examination was interpreted and the report reviewed and electronically signed by: JANEE CHIRINOS MD on Dec 30 2023 2:29PM [facility] XR Chest PA and LateralOrder ed By: [facility] Provider on 12-30-2023 [facility] Breast - right Diagnostic for implanton 12-29-2023 Addendum by Provider , [facility] [place] on 01/01/2024 4:25 PM EDT * * *Final Report* * * * * * SEE BOTTOM OF REPORT FOR ADDENDED TEXT * * * DATE OF EXAM: Dec 29 2023 9:02AM SSW 0626 - [facility] DIAGNOSTIC RT / PROCEDURE REASON: multiple diagnoses * * * * Physician Interpretation * * * * RESULT: FINAL REPORT #[id number] - [facility] RT #[id number] - [facility] US LOC BREAST RT ULTRASOUND GUIDED INFRARED ACTIVATED ELECTROMAGNETIC REFLECTOR DEVICE PLACEMENT RIGHT BREAST WITH POST DIGITAL MAMMOGRAPHIC AND ULTRASOUND IMAGIN12/29/2023 HISTORY: /The patient presents for right ultrasound guided reflector localization as recommended from recent imaging study dated (11/12/23). Pre and post localization hard copy sonographic images were obtained. right 10:00, 3 cmfn (halina) /The patient presents for right ultrasound guided reflector localization as recommended from recent imaging study dated (11/12/23). Pre and post localization hard copy sonographic images were obtained. PATIENT CONSENT: A time out was performed immediately prior to procedure start with the radiology team, correctly identifying the patient name, date of , procedure, anatomy (including marking of site and side), patient position, relevant diagnostic and radiology test results, safety precautions, and procedure-specific equipment needs. The procedure was explained to the patient including the risks, benefits and alternatives. Medications and allergies were also reviewed. The risks, including but not limited to infection and bleeding, were reviewed by the performing physician and the patient agreed to undergo the procedure. The radiologist and technologist were present throughout the entire procedure. Audible Time Out Time: 939 Procedure Start Time: 940 Procedure Stop Time: 944 . Correlation is made to exams dated: 11/12/2023 mammogram and 11/12/2023 ultrasound biopsy - [facility]. An infrared activated electromagnetic reflector device placement using ultrasound guidance was performed for the concerning spiculated irregular shaped mass located in the right breast at 10 o'clock middle depth 3 cm from the nipple. This was described on the previous ultrasound and biopsy reports. The skin was prepped in the usual manner. Local anesthetic was administered to the access site. A skin lupillo was made in the breast. The localization was approached from the caudocranial aspect. A location device was inserted into the targeted area through an introducer device under ultrasound guidance. A sterile dressing was applied to the access site. Post placement digital mammographic and ultrasound imaging demonstrates location device traverses the targeted area. Clip placement/activation was verified with Political Cartoonist Check following the procedure. Halina is in the mass of concern (Q clip is along anterior border of the mass). IMPRESSION: INFRARED ACTIVATED ELECTROMAGNETIC REFLECTOR DEVICE PLACEMENT Infrared activated electromagnetic reflector device placement for the mass in the right breast at 10 o'clock middle depth 3 cm from the nipple with placement of an infrared activated electromagnetic reflector device was successful with no apparent post procedure complications. A specimen radiograph is recommended. The specimen radiograph should include the Political Cartoonist reflector and the Q shaped clip. Gerda sky/christo:01/01/2024 16:24:43 Form Carpenter(s): Brianna Li RT(R)(M), [facility] Multiple national specialty organizations have released breast cancer screening guidelines for women at average risk for developing breast cancer - guidelines that are based on both evidence and opinion, yet differ on when to start and how often to screen for breast cancer. With representation from Breast Imaging, Internal Medicine, Women's Health, Family Medicine, and Medical/Surgical Oncology, the [facility] has carefully reviewed the data and reached the following consensus: 1) All women should engage in shared decision-making with their providers to decide when to start and how often to screen; 2) All women should have the opportunity to start screening mammography at age 40; 3) For women ages 45-55, we recommend annual screening mammograms; 4) For women ages 55 and over, we support both the transition from an annual to a biennial interval if this aligns more with patient's values and preferences, or continuation with annual screening; 5) All women should discuss with their providers when to stop screening mammograms. Breakfast Cook: Christo Transcribe Date/Time: Dec 29 2023 9:02A Dictated by: GERDA GARCIA MD This examination was interpreted and the report reviewed and electronically signed by: GERDA GARCIA MD on Dec 29 2023 9:57AM EST This document has been addende (more content not included)... [facility] Radiology Study observation (narrative) [facility] No Panel InformationOrdered By: Cc Provider on 12-29-2023 [facility] US Guidance for localization of Breast - righton 12-29-2023 Addendum by Provider , [facility] [place] on 01/01/2024 4:25 PM EDT * * *Final Report* * * * * * SEE BOTTOM OF REPORT FOR ADDENDED TEXT * * * DATE OF EXAM: Dec 29 2023 9:02AM W 0600 - [facility] US LOC BREAST RT / PROCEDURE REASON: multiple diagnoses * * * * Physician Interpretation * * * * RESULT: FINAL REPORT #[id number] - [facility] DIAGNOSTIC RT #[id number] - [facility] US LOC BREAST RT ULTRASOUND GUIDED INFRARED ACTIVATED ELECTROMAGNETIC REFLECTOR DEVICE PLACEMENT RIGHT BREAST WITH POST DIGITAL MAMMOGRAPHIC AND ULTRASOUND IMAGIN12/29/2023 HISTORY: /The patient presents for right ultrasound guided reflector localization as recommended from recent imaging study dated (11/12/23). Pre and post localization hard copy sonographic images were obtained. right 10:00, 3 cmfn (halina) /The patient presents for right ultrasound guided reflector localization as recommended from recent imaging study dated (11/12/23). Pre and post localization hard copy sonographic images were obtained. PATIENT CONSENT: A time out was performed immediately prior to procedure start with the radiology team, correctly identifying the patient name, date of , procedure, anatomy (including marking of site and side), patient position, relevant diagnostic and radiology test results, safety precautions, and procedure-specific equipment needs. The procedure was explained to the patient including the risks, benefits and alternatives. Medications and allergies were also reviewed. The risks, including but not limited to infection and bleeding, were reviewed by the performing physician and the patient agreed to undergo the procedure. The radiologist and technologist were present throughout the entire procedure. Audible Time Out Time: 939 Procedure Start Time: 940 Procedure Stop Time: 944 . Correlation is made to exams dated: 11/12/2023 mammogram and 11/12/2023 ultrasound biopsy - [facility]. An infrared activated electromagnetic reflector device placement using ultrasound guidance was performed for the concerning spiculated irregular shaped mass located in the right breast at 10 o'clock middle depth 3 cm from the nipple. This was described on the previous ultrasound and biopsy reports. The skin was prepped in the usual manner. Local anesthetic was administered to the access site. A skin lupillo was made in the breast. The localization was approached from the caudocranial aspect. A location device was inserted into the targeted area through an introducer device under ultrasound guidance. A sterile dressing was applied to the access site. Post placement digital mammographic and ultrasound imaging demonstrates location device traverses the targeted area. Clip placement/activation was verified with Political Cartoonist Check following the procedure. Halina is in the mass of concern (Q clip is along anterior border of the mass). IMPRESSION: INFRARED ACTIVATED ELECTROMAGNETIC REFLECTOR DEVICE PLACEMENT Infrared activated electromagnetic reflector device placement for the mass in the right breast at 10 o'clock middle depth 3 cm from the nipple with placement of an infrared activated electromagnetic reflector device was successful with no apparent post procedure complications. A specimen radiograph is recommended. The specimen radiograph should include the Political Cartoonist reflector and the Q shaped clip. Gerda sky/christo:01/01/2024 16:24:43 Form Carpenter(s): RT Wally(Sherif)(M), [facility] Multiple national specialty organizations have released breast cancer screening guidelines for women at average risk for developing breast cancer - guidelines that are based on both evidence and opinion, yet differ on when to start and how often to screen for breast cancer. With representation from Breast Imaging, Internal Medicine, Women's Health, Family Medicine, and Medical/Surgical Oncology, the [facility] has carefully reviewed the data and reached the following consensus: 1) All women should engage in shared decision-making with their providers to decide when to start and how often to screen; 2) All women should have the opportunity to start screening mammography at age 40; 3) For women ages 45-55, we recommend annual screening mammograms; 4) For women ages 55 and over, we support both the transition from an annual to a biennial interval if this aligns more with patient's values and preferences, or continuation with annual screening; 5) All women should discuss with their providers when to stop screening mammograms. Breakfast Cook: Christo Transcribe Date/Time: Dec 29 2023 9:02A Dictated by: GERDA GARCIA MD This examination was interpreted and the report reviewed and electronically signed by: GERDA GARCIA MD on Dec 29 2023 9:57AM EST This document has been adde (more content not included)... [facility] Radiology Study observation (narrative) [facility] XR Chest PA and Lateralon Radiology Study observation (narrative) [facility] CNPNon 12-16-2023 CNPN Telephone (GENSF) LASHELL SEGURA ([id number]) 1970 F T Date Time Provider Department 12/16/23 LOVE JUAREZ During your visit today, we recorded the following information about you: Carmel Steven 12/16/2023 3:10 PM Signed Called and unable to leave any message to patient. Surgery date 01/06/[address] Juarez. Allergies As of Date: 12/16/2023 Noted Allergy Reaction EGGS (EGG) 07/20/2023 4 - Hives LATEX 07/20/2023 4 - Hives PENICILLINS 01/02/2015 4 - Hives PENICILLINS 07/19/2023 16 - Unknown Date Reviewed: 12/05/2023 Reviewed by: Aye Tracey LPN - Fully Assessed Reason for Visit: Appointment [[id number]] Prescriptions as of 12/16/2023 - OLANZapine (ZYPREXA) 5 mg tablet Take 1 tablet by mouth daily at bedtime. Start on the day of chemotherapy and take for 5 night. - lacosamide (VIMPAT) 100 mg tab Take 1 tablet by mouth two times a day for 7 days, THEN 1.5 tablets two times a day for 21 days. - lacosamide (VIMPAT) 150 mg tab Take 1 tablet by mouth two times a day for 180 days. Do not start before January 02, 2024. - ondansetron (ZOFRAN) 8 mg tablet Take 1 tablet by mouth every 8 hours as needed for nausea/vomiting. - famotidine (PEPCID) 20 mg tablet Take 1 tablet by mouth two times a day. - folic acid 1 mg tablet Take 1 tablet by mouth once daily. - loperamide (IMODIUM A-D) 2 mg cap(s) Take 1 capsule by mouth four times a day as needed. - prochlorperazine (COMPAZINE) 10 mg tablet Take 1 tablet by mouth every 4 hours as needed. - midazolam (NAYZILAM) 5 mg/spray (0.1 mL) nasal spray Use 1 Morrow in the nose as needed for seizures lasting longer than 5 minutes for up to 180 days. May repeat dose in alternate nostril after 10 minutes based on response and tolerability. - pyridoxine, vitamin B6, (VITAMIN B6) 100 mg tablet Take 1 tablet by mouth once daily. - levETIRAcetam (KEPPRA) 750 mg tablet 2 tablets by ORAL/FEEDING TUBE route two times a day. - pantoprazole DR (PROTONIX) 40 mg tablet Take 1 tablet by mouth daily at 6 am. - acetaminophen (TYLENOL) 325 mg tablet 2 tablets by ORAL/FEEDING TUBE route every 4 hours as needed for pain. - atorvastatin (LIPITOR) 40 mg tablet Take 40 mg by mouth once daily. - DULoxetine (CYMBALTA) 60 mg capsule Take 60 mg by mouth once daily. Problem List As Of Date 12/16/2023 Noted Resolved Metastasis to brain (HCC) [C79.31] 07/20/2023 Lung mass [R91.8] 07/21/2023 Breast nodule [N63.0] 07/21/2023 Tobacco abuse [Z72.0] 07/21/2023 Vasogenic brain edema (HCC) [G93.6] 07/21/2023 At risk for seizures [Z91.89] 07/21/2023 Seizure (HCC) [R56.9] 07/21/2023 Neoplasm of lung [D49.1] 08/04/2023 Encounter Status:Closed by [facility] Office Visit (NEEPBA ) LASHELL SEGURA ([id number]) 1970 F T Date Time Provider Department 12/05/23 10:40 AM MARK MCDONNELL During your visit today, we recorded the following information about you: Pulse Respiration Blood pressure 98/minute 16/minute 114/75 Mark Mcdonnell MD 12/05/2023 11:12 AM Addendum Summary of the things we discussed today: Week 1 Start Vimpat 100 mg in the morning and evening Continue Keppra 1500 mg in the morning and evening Week 2 Increase Vimpat to 150 mg in the morning and evening Continue Keppra 1500 mg in the morning and evening Week 3 Continue Vimpat 150 mg in the morning and evening Decrease Keppra to 750 mg in the morning and 1500 mg in the evening Week 4 Continue Vimpat 150 mg in the morning and evening Decrease Keppra to 750 mg in the morning and evening Week 5 Continue Vimpat 150 mg in the morning and evening Decrease Keppra to 750 mg in the evening. Stop the morning dose. Week 6 Continue Vimpat 150 mg in the morning and evening Stop Keppra. Refrain from driving for 6-8 weeks as we are changing medications. Seizure precautions - No driving in the [facility] until seizure free for 6 months. Please check with local state authorities for state specific driving regulations. - No operating heavy machines - No swimming without supervision or bathing in a bathtub due to risk of drowning in the event of a seizure. Patient may shower. - Avoid unsafe heights, including ladders, due to risk of fall-related injury in the event of a seizure. - Seizure precipitating factors discussed including not taking seizure medications as prescribed, stress, excessive caffeine intake, energy drinks, alcohol, sleep deprivation or any identifiable seizure precipitating factor. Mark Mcdonnell MD Associate Staff, Epilepsy [facility] December 05, 2023 Office phone: [phone] Mark Mcdonnell MD 12/05/2023 3:55 PM Signed [facility] Patient Name: Lashell Segura Date of : 1970 ESTABLISHED EPILEPSY CLINIC NOTE 12/05/2023 10:40 AM Reason for Visit: Follow Up and Epilepsy Clinical Summary: Ms. Segura is a 53 year old left-handed Write, eats, throws left handed. Strong family h/o left handedness female seen in [facility]. EPILEPSY CLASSIFICATION Left Temporal Lobe Epilepsy Seizures: 1. Aphasic Seizure -> Right Versive Seizure -> Generalized Tonic-Clonic Seizure Etiology: Tumor (Tumor - other) Metastatic brain tumor-lung NSCLC primary HISTORY OF PRESENT ILLNESS Handedness: left-handed Write, eats, throws left handed. Strong family h/o left handedness Age of onset: Seizure History and Evolution Symptoms started 07/19/2023. Per she had nonsensical speech, difficulty getting words out. She was confused. Initial concern was for stroke. She was taken to [place] ED where as per stroke code CT CTA was done which showed a left temporal mass lesion. While in the ED patient had a witnessed seizure-described as eyes deviated to the right, head turned to the right, generalized tonic-clonic seizure. She was given Ativan and loaded with Keppra. She was transferred [facility] for further evaluation of brain mass. MRI brain confirmed left temporal lesion suspected to be metastatic associated with edema. CT chest abdominal pelvis showed compressed nodule and lung mass. She underwent bronchoscopy on 07/22/2023 with preliminary results showing non-small cell lung carcinoma. She was started on continuous EEG monitoring which showed PLEDs in the left hemisphere as well as NCS seizures from the left frontotemporal region. Keppra was increased to 1500 mg BID She underwent gamma knife radiation surgery on 07/28/2023 followed by steroid taper. She follows with oncology team (Dr. Joleen Jiang). She was started on chemotherapy with Pembrolizumab, Pemetrexed, Carboplatin. Interval Seizure History Since last visit in August 2023, she reports no new seizures. She was diagnosed with new breast cancer (biopsy done; path showed invasive ductal carcinoma) and is in the process of treatment. 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 Patient and family endorse low mood, anger and irritability with Keppra that has not improved with vitamin B6 trial. Total # of Current Anti-seizure Medications: Side Effects to Current Anti-seizure Medications: Seizure Frequency at First Visit: Longest Seizure-free Interval: Number of seizure types: 1 Hx of generalized tonic-clonic seizures: Yes Seizure-related driving accidents: No Driving: No Lives Alone: No CURRENT OUTPATIENT ANTISEIZURE MEDICATIONS (as of the start of the encounter) midazolam (NAYZILAM) 5 mg/spray (0.1 mL) nasa (more content not included)... Normal [facility] CBC W Auto Differential pane l (Bld)on 11-26-2023 Erythrocyte distribution width (RBC) [Ratio] 15.1 % High 11.5 - 15.0 % [facility] Hematocrit (Bld) [Volume fraction] 33.5 % Low 36.0 - 46.0 % [facility] Hemoglobin (Bld) [Mass/Vol] 11.5 g/dL 11.5 - 15.5 g/dL [facility] Immature granulocytes (Bld) [#/Vol] 0.04 10*3/uL <0.10 k/uL [facility] MCH (RBC) [Entitic mass] 34.6 pg High 26.0 - 34.0 pg [facility] MCHC (RBC) [Mass/Vol] 34.3 g/dL 30.5 - 36.0 g/dL [facility] MCV (RBC) [Entitic vol] 100.9 fL High 80.0 - 100.0 [facility]L [facility]ld[facility] [#/Vol] 6.20 10*3/uL 1.45 - 7.50 k/uL [facility] Nucleated RBC (Bld) [#/Vol] <0.01 k/uL [facility] Platelet mean volume (Bld) [Entitic vol] 8.4 fL Low 9.0 - 12.7 fL [facility] Platelets (Bld) [#/Vol] 309 10*3/uL 150 - 400 k/uL [facility] RBC (Bld) [#/Vol] 3.32 10*6/uL Low 3.90 - 5.2 0 m/uL [facility] WBC (Bld) [#/Vol] 8.93 10*3/uL 3.70 - 11. 00 k/uL [facility] CREATININE, BLOOD (POC)on Creatinine [Mass/Vol] 0.80 mg/dL 0.7 - 1.4 mg/dL [facility] eGFR (POCT) [facility] CT Chest W contrast Flor [facility] Comprehensive metabolic 2000 panelon 11-26-2023 Albumin [Mass/Vol] 4.1 g/dL 3.9 - 4.9 g/dL [facility] ALP [Catalytic activity/Vol] 85 U/L 34 - 123 U/L [facility] ALT [Catalytic activity/Vol] 49 U/L High 7 - 38 U/L [facility] Anion gap [Moles/Vol] 12 mmol/L 9 - 18 mmol/L [facility] AST [Catalytic activity/Vol] 42 U/L High 13 - 35 U/L [facility] Bilirubin [Mass/Vol] Low 0.2 - 1 .3 mg/dL [facility] Calcium [Mass/Vol] 9.6 mg/dL 8.5 - 10. 2 mg/dL [facility] Chloride [Moles/Vol] 102 mmol/L 97 - 10 5 mmol/L [facility] CO2 [Moles/Vol] 24 mmol/L 22 - 30 mmol/L [facility] Creatinine [Mass/Vol] 0.69 mg/dL 0.58 - 0.96 mg/dL [facility] Estimated Glomerular Filtration Rate 103 mL/min/1.73m >=60 mL/min/1.73m [facility] Glucose [Mass/Vol] 99 mg/dL 74 - 99 mg/dL [facility] Potassium [Moles/Vol] 3.8 mmol/L 3.7 - 5.1 mmol/L [facility] Protein [Mass/Vol] 6.9 g/dL 6.3 - 8.0 g/dL [facility] Sodium [Moles/Vol] 138 mmol/L 136 - 144 mmol/L [facility] Urea nitrogen [Mass/Vol] 11 mg/dL 7 - 21 mg/dL [facility] TSH BLDon 11-26-2023 TSH Qn 0.749 m[IU]/L 0.270 - 4.200 mIU/L [facility] MG Breast - right Diagnostic for implanton 11-12-2023 [facility] No Panel Informationon 11-11 [facility] CBC W Auto Differential pane l (Bld)on 10-29-2023 Erythrocyte distribution width (RBC) [Ratio] 18.6 % High 11.5 - 15.0 % [facility] Hematocrit (Bld) [Volume fraction] 34.6 % Low 36.0 - 46.0 % [facility] Hemoglobin (Bld) [Mass/Vol] 11.6 g/dL 11.5 - 15.5 g/dL [facility] Immature granulocytes (Bld) [#/Vol] 0.07 10*3/uL <0.10 k/uL [facility] MCH (RBC) [Entitic mass] 33.5 pg 26.0 - 34.0 pg [facility] MCHC (RBC) [Mass/Vol] 33.5 g/dL 30.5 - 36.0 g/dL [facility] MCV (RBC) [Entitic vol] 100.0 fL 80.0 - 100.0 fL [facility] Neutrophils (Bld) [#/Vol] 9.73 10*3/uL High 1.45 - 7.50 k/uL [facility] Nucleated RBC (Bld) [#/Vol] <0.01 k/uL [facility] Platelet mean volume (Bld) [Entitic vol] 8.2 fL Low 9.0 - 12.7 fL [facility] Platelets (Bld) [#/Vol] 340 10*3/uL 150 - 400 k/uL [facility] RBC (Bld) [#/Vol] 3.46 10*6/uL Low 3.90 - 5.2 0 m/uL [facility] WBC (Bld) [#/Vol] 13.64 10*3/uL High 3.70 - 11 .00 k/uL [facility] Comprehensive metabolic 2000 panelon 10-29-2023 Albumin [Mass/Vol] 4.4 g/dL 3.9 - 4.9 g/dL [facility] ALP [Catalytic activity/Vol] 123 U/L 34 - 123 U/L [facility] ALT [Catalytic activity/Vol] 107 U/L High 7 - 38 U/L [facility] Anion gap [Moles/Vol] 13 mmol/L 9 - 18 mmol/L [facility] AST [Catalytic activity/Vol] 76 U/L High 13 - 35 U/L [facility] Bilirubin [Mass/Vol] 0.2 mg/dL 0.2 - 1 .3 mg/dL [facility] Calcium [Mass/Vol] 10.1 mg/dL 8.5 - 10. 2 mg/dL [facility] Chloride [Moles/Vol] 100 mmol/L 97 - 10 5 mmol/L [facility] CO2 [Moles/Vol] 25 mmol/L 22 - 30 mmol/L [facility] Creatinine [Mass/Vol] 0.73 mg/dL 0.58 - 0.96 mg/dL [facility] Estimated Glomerular Filtration Rate 97 mL/min/1.73m >=60 mL/min/1.73m [facility] Glucose [Mass/Vol] 106 mg/dL High 74 - 99 mg/dL [facility] Potassium [Moles/Vol] 3.9 mmol/L 3.7 - 5.1 mmol/L [facility] Protein [Mass/Vol] 7.4 g/dL 6.3 - 8.0 g/dL [facility] Sodium [Moles/Vol] 138 mmol/L 136 - 144 mmol/L [facility] Urea nitrogen [Mass/Vol] 12 mg/dL 7 - 21 mg/dL [facility] US Breast - right limitedon 10-27-2023 [facility] CBC W Auto Differential pane l (Bld)on 10-08-2023 Erythrocyte distribution width (RBC) [Ratio] 19.4 % High 11.5 - 15.0 % [facility] Hematocrit (Bld) [Volume fraction] 31.5 % Low 36.0 - 46.0 % [facility] Hemoglobin (Bld) [Mass/Vol] 10.4 g/dL Low 11.5 - 15.5 g/dL [facility] Immature granulocytes (Bld) [#/Vol] 0.09 10*3/uL <0.10 k/uL [facility] MCH (RBC) [Entitic mass] 32.6 pg 26.0 - 34.0 pg [facility] MCHC (RBC) [Mass/Vol] 33.0 g/dL 30.5 - 36.0 g/dL [facility] MCV (RBC) [Entitic vol] 98.7 fL 80.0 - 100.0 fL [facility] Neutrophils (Bld) [#/Vol] 7.49 10*3/uL 1.45 - 7.50 k/uL [facility] Nucleated RBC (Bld) [#/Vol] 0.02 10*3/uL High <0.01 k/uL [facility] Platelet mean volume (Bld) [Entitic vol] 8.1 fL Low 9.0 - 12.7 fL [facility] Platelets (Bld) [#/Vol] 493 10*3/uL High 150 - 400 k/uL [facility] RBC (Bld) [#/Vol] 3.19 10*6/uL Low 3.90 - 5.2 0 m/uL [facility] WBC (Bld) [#/Vol] 11.09 10*3/uL High 3.70 - 11 .00 k/uL [facility] CREATININE, BLOOD (POC)on Creatinine [Mass/Vol] 0.70 mg/dL 0.7 - 1.4 mg/dL [facility]) [facility] Comprehensive metabolic 2000 panelon 10-08-2023 Albumin [Mass/Vol] 3.8 g/dL Low 3.9 - 4.9 g/dL [facility] ALP [Catalytic activity/Vol] 113 U/L 34 - 123 U/L [facility] ALT [Catalytic activity/Vol] 46 U/L High 7 - 38 U/L [facility] Anion gap [Moles/Vol] 11 mmol/L 9 - 18 mmol/L [facility] AST [Catalytic activity/Vol] 37 U/L High 13 - 35 U/L [facility] Bilirubin [Mass/Vol] 0.2 mg/dL 0.2 - 1 .3 mg/dL [facility] Calcium [Mass/Vol] 9.4 mg/dL 8.5 - 10. 2 mg/dL [facility] Chloride [Moles/Vol] 98 mmol/L 97 - 10 5 mmol/L [facility] CO2 [Moles/Vol] 25 mmol/L 22 - 30 mmol/L [facility] Creatinine [Mass/Vol] 0.78 mg/dL 0.58 - 0.96 mg/dL [facility] Estimated Glomerular Filtration Rate 90 mL/min/1.73m >=60 mL/min/1.73m [facility] Glucose [Mass/Vol] 201 mg/dL High 74 - 99 mg/dL [facility] Potassium [Moles/Vol] 3.7 mmol/L 3.7 - 5.1 mmol/L [facility] Protein [Mass/Vol] 7.1 g/dL 6.3 - 8.0 g/dL [facility] Sodium [Moles/Vol] 134 mmol/L Low 136 - 144 mmol/L [facility] Urea nitrogen [Mass/Vol] 12 mg/dL 7 - 21 mg/dL [facility] No Panel Informationon 10-08 [facility] MRI BRAIN WO/W IVCONon 09-[address] [facility] [address] BRAIN WO IVCONon 07-28-20 [facility] MRI BRAIN LOCALIZATION W IVC ONon 07-28-2023 [facility] CNDSon 07-23-2023 CNDS HNO ID: [id number] Author: Connor Servin MD Service: Neurosurgery Author Type: Physician Type: Discharge Summary Filed: 07/23/2023 12:23 PM Note Text: The [address] [address] or ([phone] [facility] E N T I A L I N F O R M A T I O N --------- [facility] DISCHARGE SUMMARY Patient Name: Lashell Segura Account #: Data Unavailable Admission Date: 07/20/2023 Date of Evaluation: 07/23/2023 Time of Evaluation: 11:36 AM Location: [id number] Admission Date: 07/20/2023 Discharge Date: 07/23/2023 Discharged Against Medical Advice? No Attending Physician: PCP: Martine Marrufo, [facility] [phone] Reason for Hospitalization: Brain tumor Final Diagnoses: Patient Active Hospital Problem List: Metastasis to brain (HCC) (07/20/2023) Lung mass (07/21/2023) Breast nodule (07/21/2023) Tobacco abuse (07/21/2023) Vasogenic brain edema (HCC) (07/21/2023) At risk for seizures (07/21/2023) Seizure (HCC) (07/21/2023) Operations During Hospitalization: None Procedures During Hospitalization: Bronchoscopy 07/22/23 Hospital Course: The patient was emergently admitted through the Emergency Department to the [facility] with expressive aphasia and GTC. She was started on Keppra and MRI demonstrated left temporal mass. CT C/A/P showed breast nodule and lung mass. She underwent Bronchoscopy on 07/22/23 with Prelim results of NSCLC and recommendations for mammogram outpatient. Neurology was consulted for seizures and seizure was last observed on BEM 07/21/23, however PLEDS were also observed and the patient's Keppra dose was increased to 1,500mg BID. Radiation Oncology was consulted and the patient will undergo GK outpatient on 07/28/23. The patient was ambulating well with medical staff. Pathology:malignancy Relevant labs included: CBC: Recent Labs 07/20/238 07/19/232143 WBC 14.22* 16.30* HB 13.6 13.9 HCT 39.5 38.7 PLT 267 296 MCV 91.6 91.3 RDWCV 13.0 13.0 NEUTP 87.1 -- ABSNEUT 12.41* -- LYMPHP 10.1 -- MONOP 1.5 -- COAG: Recent Labs 07/20/2331707/19/232143 APTT 27.1 28.3 INR 1.0 1.0 BMP: Recent Labs 07/20/23 1423 07/19/232143 GLUC 137* 107* NA 138 138 K 4.0 3.8 CHLOR 105 103 CO2 19* 24 ANION 14 11 BUN 12 20 CREAT 0.59 0.82 CHEM: Recent Labs 07/20/23142207/20/2331707/19/232143 ALB -- 4.6 -- TPROT -- 7.1 -- CA 9.6 -- 9.3 MG -- 2.1 -- HEPATIC: Recent Labs 07/20/23317 ALKPHOS 94 ALT 19 AST 21 TBILI 0.3 URINALYSIS: Recent Labs 07/20/23 0441 SPGR 1.024 UGLUC Negative UBILI Negative UKET Trace* UHB Trace* UPROT Negative UWBC 0-5 /HPF CARDIAC: No results for input(s): CKTEST, CKMB, CKMBP, TROPT, PBNP in the last 168 hours. Estimated Creatinine Clearance: 109.4 mL/min (based on SCr of 0.59 mg/dL). Pending results: Biopsy Results (final pathology) Patient had no signs/symptoms of DVT, so no ultrasound was done during hospital course. Advanced Directive Status While in the Hospital: Emergency Contact While in the Hospital: Extended Emergency Contact Information Primary Emergency Contact: Nathanael Segura Mobile Relation: Spouse Secondary Emergency Contact: KashmirMarilee Mobile Relation: Daughter ALLERGIES: ALLERGIES Allergen Reactions Eggs [Egg] Hives Latex Hives Penicillins Unknown PAST MEDICAL HISTORY: No past medical history on file. PAST SURGICAL HISTORY: No past surgical history on file. PAST FAMILY HISTORY: No family history on file. PAST SOCIAL HISTORY Social History Tobacco Use Smoking status: Every Day Packs/day: 1.00 Years: 20.00 Additional pack years: 0.00 Total pack years: 20.00 Types: Cigarettes Substance Use Topics Alcohol use: Yes Comment: Occassionally Drug use: Not Currently HOME MEDICATIONS: Prior to Admission medications as of 07/22/23 1352 Medication Sig Last Dose Taking atorvastatin (LIPITOR) 40 mg tablet Take 40 mg by mouth once daily. 07/21/2023 Yes DULoxetine (CYMBALTA) 60 mg capsule Take 60 mg by mouth once daily. 07/22/2023 Yes iv contrast (will be provided with radiology test) MRI Brain Localization Inject, intravenously, once for 1 dose.No IV access, insert saline lock prior to beginning of sedation, infusion, injection of imaging exam.Discontinue saline lock post exam. If Pt. has a central line or IVAD, may access for administration according to line specific nursing protocol.Once exam is complete flush line and de-access according to line specific nursing protocol in the MR contrast administration guidelines link iv contrast (will be provided with radiology test) MRI Brain (more content not included)... 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 Connor Servin. Subjective CHIEF COMPLAINT: confusion, speech difficulties DIAGNOSIS: 53 year old female who presented to the hospital for seizure. MRI brain reveals 1 cm left temporal mass lesion. CT chest also showed a left lung mass concerning for lung primary. She underwent bronch 07/22/23 and preliminary pathology reveals non small cell carcinoma. HPI: 53 year old female who presents with brain metastasis, for an opinion regarding the role of radiation therapy in the management of the patient's disease. Mrs. Segura has a past medical history significant for current tobacco use (x40+ years), HLD, and depression. She presented to [facility] ED on 07/19/23 with sudden onset expressive aphasia. CTH revealed vasogenic edema and concern for left temporal lobe mass. CXR revealed concern for Left perihilar parenchymal opacity c/w mass vs infiltrate. While in ED patient developed episode of right gaze deviation with head turn followed by GTC seizure. She was provided Keppra loading dose and Ativan. She was transferred to [facility] for further management. MRI brain on 07/20/23 confirms solitary 1 cm enhancing left temporal lobe mass with significant surrounding vasogenic edema c/w intraparenchymal met. Staging CT CAP on 07/21/23 revealed 3.6 x 2.5 x 4.2 cm lingular mass c/w primary bronchogenic neoplasm, multiple additional solid and nonsolid bilateral pulmonary nodules, indeterminate soft tissue nodule in right breast, and indeterminate T11 vertebral body compression deformity. She underwent bronchoscopy on 07/22/23, preliminary reports NSCLC per offline discussion with primary team, final path pending. Mammogram has been ordered. She is currently on dexamethasone 4 mg BID for treatment of cerebral edema. Her current ASM regimen is Keppra 1500 mg BID. Plan for discharge home today and return for outpatient GKRS with Dr. Servin and Dr. Lieberman next 07/28/23. Today she is seen with at bedside. Patient states she is doing well. No further seizures, and does not remember anything from Friday night until Friday morning. Currently on continuous BEM. Speech back to baseline. 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 She reports some sinus type headaches recently but was taking sinus medication with positive effects. She currently denies headaches, nausea, vision changes, memory changes, pain, focal weakness, paresthesias, or gait instability. ALLERGIES Allergen Reactions Eggs [Egg] Hives Latex Hives Penicillins Unknown atorvastatin (LIPITOR) 40 mg tabletTake 40 mg by mouth once daily.Disp: Rfl: DULoxetine (CYMBALTA) 60 mg capsuleTake 60 mg by mouth once daily.Disp: Rfl: iv contrast (will be provided with radiology test)MRI Brain Localization Inject, intravenously, once for 1 dose.No IV access, insert saline lock prior to beginning of sedation, infusion, injection of imaging exam.Discontinue saline lock post exam. If Pt. has a central line or IVAD, may access for administration according to line specific nursing protocol.Once exam is complete flush line and de-access according to line specific nursing protocol in the MR contrast administration guidelines linkDisp: 1 EachRfl: 0 iv contrast (will be provided with radiology test)MRI Brain Inject, intravenously, once for 1 dose.No IV access, insert saline lock prior to beginning of sedation, infusion, injection of imaging exam.Discontinue saline lock post exam. If Pt. has a central line or IVAD, may access for administration according to line specific nursing protocol.Once exam is complete flush line and de-access according to line specific nursing protocol in the MR contrast administration guidelines linkDisp: 1 EachRfl: 0 Current Facility-Administered Medications Medication Dose Route Frequency ondansetron (PF) 4 mg injection (ZOFRAN) 4 mg INTRAVENOUS q 6 H PRN prochlorperazine 10 mg injection (COMPAZINE) 10 mg INTRAVENOUS q 6 H PRN trimethobenzamide 200 mg injection (TIGAN) 200 mg INTRAMUSCULAR q 6 H PRN senna-docusate 8.6-50 mg 1 tablet (SENNA-S) 1 tablet ORAL/FEEDING TUBE BID acetaminophen 650 mg tab(s) (TYLENOL) 650 mg ORAL/FEEDING TUBE q 4 H PRN DULoxetine 60 mg cap(s) (CYMBALTA) 60 mg ORAL DAILY atorvastatin 40 mg tab(s) (LIPITOR) 40 mg ORAL/FEEDING TUBE AT BEDTIME nicotine 21 mg/24 hr 1 Patch (NICODERM) 1 Patch TRANSDERMAL DAILY And nicotine -- REMOVE patch OTHER DAILY And nicotine - verify patch OTHER q 8 H nicotine polacrilex 2 mg gum (NICORETTE) 2 mg ORAL q 2 H PRN NaCl 0.9% iv flush bag 20 mL INTRAVENOUS PRN mupirocin 2 (more content not included)... [facility] ANES POSTPROC EVALon 023 ANES POSTPROC EVAL HNO ID: [id number] Author: Enedina Solomon MD Service: ? 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 PACU/ICU Patient Condition: stable. Anticipated Disposition: inpatient floor planned admission. Neurological Status: aware and responsive. Pulmonary Status: breathing comfortably on supplemental oxygen Airway Control: returned to baseline unsupported. Cardiovascular Status: stable. Pain Management: clinically adequate Postoperative Hydration: acceptable. Intraoperative Events: no significant anesthesia events Post Operative Nausea/Vomiting Status: no significant post operative nausea or vomiting Recommendation: continue current plan of care. Anesthesia Observations No Documentation SIGNATURE: Enedina Solomon MD PATIENT NAME: Lahsell Segura DATE: July 22, 2023 TIME: 2:50 PM CSN: [id number] [facility] ANES PRE-OPon 07-22-2023 ANES PRE-OP HNO ID: [id number] Author: Enedina Solomon MD Service: ? Author Type: Anesthesiologist Type: Anesthesia Preprocedure Evaluation Filed: 07/22/2023 1:54 PM Note Text: ANESTHESIOLOGY DAY OF SURGERY NOTE : 1970 Procedure Information Date/Time: 07/22/23 1230 Procedure: BRONCHOSCOPY FLEXIBLE ADULT (Bronchus) - Tier 1 Dx H60-07 Location: PULM B-01 / PULM LAB H23 Surgeons: Arnold Meyer MD Estimated body mass index is 32.18 kg/m? as calculated from the following: Height as of this encounter: 160 cm (5' 3). Weight as of this encounter: 82.4 kg (181 lb 10.5 oz). Most recent hematocrit and potassium results: Hematocrit 39.5 07/20/2023 Potassium 4.0 07/20/2023 Relevant Problems NEURO-PSYCH (+) Seizure (HCC) I - PHYSICAL EVALUATION AIRWAY Patient intubated: No. Tracheostomy tube not present Mallampati: II. TM distance: >3 FB. Neck ROM: full ROM without neurological symptoms. Mouth opening: adequate. Short neck: no. Thick neck: no Rao present: no DENTAL Dental findings: poor dentition and chipped. II - ANESTHESIA PLAN ASA Score: 3 Anesthetic Plan: general Airway type: LMA The patient is not a current smoker. NPO Status: adequate Beta Rojelio Monitoring Plan Monitoring plan: standard ASA. Post Procedure Analgesic Plan Postoperative analgesic plan: parenteral or oral opioids and multimodal analgesia. Informed Consent Anesthetic risks, benefits, alternatives, personnel and consent discussed: yes. Patient / Responsible Green Party agrees to proceed: yes Patient / Surrogate agrees to blood products: Yes Significant changes in the patient condition since the History and Physical, not otherwise documented in primary service progress note: no. Vitals Value Taken Time BP 112/80 07/22/23 1325 Pulse 85 07/22/23 1325 Resp 17 07/22/23 1325 Temp 36.5 ?C (97.7 ?F) 07/22/23 1325 SpO2 97 % 07/22/23 1325 Facility-Administered Medications as of 07/22/2023 Medication Dose Route Frequency - levETIRAcetam 1,500 mg tab(s) (KEPPRA) 1,500 mg ORAL/FEEDING TUBE BID - mupirocin 2 % 0.5 g nasal ointment (BACTROBAN) 0.5 g NASAL BID - dexAMETHasone 4 mg tab(s) (DECADRON) 4 mg ORAL/FEEDING TUBE BID w MEALS - LORazepam 1 mg injection (ATIVAN) 1 mg INTRAVENOUS q 6 H PRN - hydrOXYzine HCl 10 mg tab(s) (ATARAX) 10 mg ORAL/FEEDING TUBE q 6 H PRN - pantoprazole DR 40 mg tab(s) (PROTONIX) 40 mg ORAL DAILY (6 AM) - [COMPLETED] caffeine-sodium benzoate 500 mg in NaCl 0.9% 1,000 mL 500 mg INTRAVENOUS ONCE - [COMPLETED] magnesium sulfate iv piggyback in sterile water 2 g 50 mL 2 g INTRAVENOUS ONCE - [COMPLETED] metoclopramide HCl 5 mg injection (REGLAN) 5 mg INTRAVENOUS ONCE - ondansetron (PF) 4 mg injection (ZOFRAN) 4 mg INTRAVENOUS q 6 H PRN - prochlorperazine 10 mg injection (COMPAZINE) 10 mg INTRAVENOUS q 6 H PRN - trimethobenzamide 200 mg injection (TIGAN) 200 mg INTRAMUSCULAR q 6 H PRN - senna-docusate 8.6-50 mg 1 tablet (SENNA-S) 1 tablet ORAL/FEEDING TUBE BID - NaCl 0.9% iv infusion 75 mL/hr INTRAVENOUS CONTINUOUS - acetaminophen 650 mg tab(s) (TYLENOL) 650 mg ORAL/FEEDING TUBE q 4 H PRN - DULoxetine 60 mg cap(s) (CYMBALTA) 60 mg ORAL DAILY - atorvastatin 40 mg tab(s) (LIPITOR) 40 mg ORAL/FEEDING TUBE AT BEDTIME - [] iv contrast (radiology procedure) INTRAVENOUS DIRECTED PRN - nicotine 21 mg/24 hr 1 Patch (NICODERM) 1 Patch TRANSDERMAL DAILY And - nicotine -- REMOVE patch OTHER DAILY And - nicotine - verify patch OTHER q 8 H - nicotine polacrilex 2 mg gum (NICORETTE) 2 mg ORAL q 2 H PRN - [COMPLETED] prochlorperazine 10 mg injection (COMPAZINE) 10 mg INTRAVENOUS ONCE - [COMPLETED] NaCl 0.9% 500 mL iv bolus 500 mL INTRAVENOUS ONCE - [COMPLETED] magnesium sulfate 1 g in D5W 100 mL 1 g INTRAVENOUS ONCE - NaCl 0.9% iv flush bag 20 mL INTRAVENOUS PRN Outpatient Medications as of 07/22/2023 Medication Sig - atorvastatin (LIPITOR) 40 mg tablet Take 40 mg by mouth once daily. - DULoxetine (CYMBALTA) 60 mg capsule Take 60 mg by mouth once daily. I have interviewed and examined the patient. I have reviewed the medical record and/or the pre-anesthesia evaluation, pertinent labs, and test results. This contains updated information obtained within 48 hours of Surgery/Procedure. SIGNATURE: Enedina Solomon MD PATIENT NAME: Lashell Segura DATE: July 22, 2023 TIME: 1:53 PM CSN: [id number] [facility] CNCOon 07-22-2023 CNCO Letter Text [facility] CONSULT PROGon 07-22-2023 CONSULT PROG HNO ID: [id number] Author: Raiza Ross MD Service: Pulmonary Disease Author Type: Physician Type: Consult Progress Note Filed: 07/22/2023 6:00 PM Note Text: PULMONARY DISEASES INPATIENT PROGRESS NOTE After 5:00pm Friday to Friday and 12:00pm Friday and Friday please page [phone] for Pulmonary On-call. Name: Lashell Segura Events from the last 12-24 hours reviewed. Plan for Today: - Bronchoscopy Interval History: Consulted to pulm for bronch bx of suspicious pulm lung lesion iso new brain mass w vasogenic edema causing seizures. PHYSICAL EXAM BP 98/81 Pulse 69 Temp 36.5 ?C (97.7 ?F) (Oral) Resp 17 Ht 160 cm (5' 3) Wt 82.4 kg (181 lb 10.5 oz) SpO2 96% BMI 32.18 kg/m? 24 hour Intake AND Output: Intake/Output Summary (Last 24 hours) at 07/22/2023 1044 Last data filed at 07/22/2023 1019 Gross per 24 hour Intake 550 ml Output -- Net 550 ml GENERAL: Alert, no distress, cooperative. SKIN: No rashes or lesions. OROPHARYNX: Lips are normal. NECK: No JVD. LUNGS: Lungs clear to auscultation. Good diaphragmatic excursion. CARDIAC: Regular rate and rhythm. Normal S1 and S2; no rubs, murmurs, or gallops. ABDOMEN: Abdomen soft, non-tender, no masses or organomegaly. EXTREMETIES: Extremities normal, no deformities. NEURO: Cranial nerves grossly intact. MEDICATIONS : Current Facility-Administered Medications Medication Dose Route Frequency ondansetron (PF) 4 mg injection (ZOFRAN) 4 mg INTRAVENOUS q 6 H PRN prochlorperazine 10 mg injection (COMPAZINE) 10 mg INTRAVENOUS q 6 H PRN trimethobenzamide 200 mg injection (TIGAN) 200 mg INTRAMUSCULAR q 6 H PRN senna-docusate 8.6-50 mg 1 tablet (SENNA-S) 1 tablet ORAL/FEEDING TUBE BID NaCl 0.9% iv infusion 75 mL/hr INTRAVENOUS CONTINUOUS acetaminophen 650 mg tab(s) (TYLENOL) 650 mg ORAL/FEEDING TUBE q 4 H PRN DULoxetine 60 mg cap(s) (CYMBALTA) 60 mg ORAL DAILY atorvastatin 40 mg tab(s) (LIPITOR) 40 mg ORAL/FEEDING TUBE AT BEDTIME nicotine 21 mg/24 hr 1 Patch (NICODERM) 1 Patch TRANSDERMAL DAILY And nicotine -- REMOVE patch OTHER DAILY And nicotine - verify patch OTHER q 8 H nicotine polacrilex 2 mg gum (NICORETTE) 2 mg ORAL q 2 H PRN NaCl 0.9% iv flush bag 20 mL INTRAVENOUS PRN mupirocin 2 % 0.5 g nasal ointment (BACTROBAN) 0.5 g NASAL BID dexAMETHasone 4 mg tab(s) (DECADRON) 4 mg ORAL/FEEDING TUBE BID w MEALS LORazepam 1 mg injection (ATIVAN) 1 mg INTRAVENOUS q 6 H PRN hydrOXYzine HCl 10 mg tab(s) (ATARAX) 10 mg ORAL/FEEDING TUBE q [address] 40 mg tab(s) (PROTONIX) 40 mg ORAL DAILY (6 AM) levETIRAcetam 1,500 mg tab(s) (KEPPRA) 1,500 mg ORAL/FEEDING TUBE BID DATA: LABORATORY TESTS: CBC: Recent Labs 07/20/2331707/19/232143 WBC 14.22* 16.30* HB 13.6 13.9 HCT 39.5 38.7 PLT 267 296 BMP: Recent Labs 07/20/23142207/19/232143 GLUC 137* 107* NA 138 138 K 4.0 3.8 CHLOR 105 103 CO2 19* 24 ANION 14 11 BUN 12 20 CREAT 0.59 0.82 CHEM: Recent Labs 07/20/23142207/20/2331707/19/232143 ALB -- 4.6 -- TPROT -- 7.1 -- CA 9.6 -- 9.3 MG -- 2.1 -- HEPATIC: Recent Labs 07/20/23317 ALKPHOS 94 ALT 19 AST 21 TBILI 0.3 COAG: Recent Labs 07/20/2331707/19/232143 APTT 27.1 28.3 INR 1.0 1.0 URINALYSIS: Recent Labs 07/20/23 0441 SPGR 1.024 UGLUC Negative UBILI Negative UKET Trace* UHB Trace* UPROT Negative UWBC 0-5 /HPF CARDIAC: ASSESSMENT AND PLAN: 53 y.o female with PMH HLD + tobacco use recently admitted for GTC iso new found brain + lung lesions. Pt currently undergoing malignancy work up. Risk factors for lung cancer include significant smoking exposure + tobacco use. Pt is on the bronchoscopy schedule for 07/22/23 for BAL + bx. Written and verbal health teaching given to patient, patient verbalizes understanding and agrees with treatment plan. Plan not finalized until signed by staff. Lou Bah MD PULMONARY ATTENDING I have personally interviewed and examined the patient. I have personally verified elements of the exam listed above. Interval changes or irregualrities are as noted. I have personally and independently reviewed laboratory, radiographic and procedural data. I have personally reviewed the problem list above and concur. Changes, if any, are noted. I have personally reviewed the plan list above and concur. Changes, if any, are noted. Raiza Ross MD [facility] B-HCG SerPl-aCncon 3 HCG.beta subunit Qn 5.4 m[IU]/mL High <5.0 [facility] Comment on above: Order Comment: Speci men Type: URINE SPECIMEN Ordering Facility: [facility] Address: [address] [place] [address] Result Comment: HCG values 5 to 16 mU/mL may represent benign, pituitary derived HCG in non- women over 40 years of age. QUANTITATIVE HCG NORMAL RANGES Weeks of Gestation (Weeks Since LMP) 3 Weeks (5.8-71.2 mIU/mL) 4 Weeks (9.5-750 mIU/mL) 5 Weeks (217-7138 mIU/mL) 6 Weeks (158-74417 mIU/mL) 7 Weeks (3697-394795 mIU/mL) 8 Weeks (23431-625399 mIU/mL) 9 Weeks (28893-369561 mIU/mL) 10 Weeks (02456-015086 mIU/mL) 12 Weeks (48559-237576 mIU/mL) Referenced to 4th IS of [facility] Performed By: #### 2 [id number] #### [facility] CLIA [id number] [address] [place] [address] [place] [address] ABD/PEL W IVCONon 023 CT ABD/PEL W IVCON * * *Final Report* * * DATE OF EXAM: Jul 21 2023 8:04AM [facility] [id number] - CT ABD/PEL W IVCON / PROCEDURE REASON: Occult malignancy * * * * Physician Interpretation * * * * EXAMINATION: CT ABDOMEN AND PELVIS WITH IV CONTRAST CLINICAL HISTORY: ?53 year old?left-handed?female ?with PMH significant for current?tobacco use,?HLD, and depression?who presented to an [facility] ED on 07/19 for aphasia. Patient was on the phone with her daughter around 1999 last night. By 2024, patient was noted to have sudden onset of expressive aphasia. Dysarthria also noted on assessment in the ED. At 0, patient had an episode of right gaze deviation with head turn to the right followed by a GTC for which she received a loading dose of keppra and ativan. CXR at this time revealed a 3.6 x 4.4 cm REILLY lung mass concerning for malignancy. CTH completed in the ED shows a significant amount of vasogenic edema within the left temporal lobe with 2.4 mm MLS suspicious for metastatic disease. Patient ?was transferred to [facility] for neurosurgical evaluation. ? TECHNIQUE: CT of the abdomen and pelvis was performed using standard technique, scanning from just above the dome of the diaphragm to the symphysis pubis. MQ: CTAP_3 Contrast: IV: 100 ml of Omnipaque 350 CT Radiation dose: Integrated Dose-length product (DLP) for this visit = 565 mGy*cm. CT Dose Reduction Employed: Automated exposure control (AEC) COMPARISON: None. RESULT: Liver: No mass. Biliary: No bile duct dilation. Gallbladder is unremarkable. Spleen: No mass. No splenomegaly. Pancreas: No mass or duct dilation. Adrenals: No mass. Kidneys: No mass, calculus or hydronephrosis. GI tract: No dilation or wall thickening. Lymph nodes: No abdominal or pelvic lymphadenopathy. Mesentery/Peritoneum: No ascites or mass. Retroperitoneum: No mass. Vasculature: - Abdominal aorta and iliac arteries: No aneurysm. - Celiac and SMA: Patent without stenosis. - Portal venous system (SMV, splenic vein, portal vein and branches): Patent. - Hepatic veins: Patent. Pelvis: No mass, ascites or fluid collection. Bones/Soft Tissues: * Degenerative changes. * T11 vertebral body compression deformity Lower thorax: A chest CT performed will be reported separately. Political Cartoonist (topogram) images: No additional findings. IMPRESSION: T11 vertebral body compression deformity, indeterminate for degenerative change versus secondary to presence of underlying lesion. Otherwise, no evidence for primary malignancy or metastatic disease in the abdomen or pelvis. Breakfast Cook: PSCB Transcribe Date/Time: Jul 21 2023 8:10A Dictated by : JONO FULTON MD This examination was interpreted and the report reviewed and electronically signed by: JONO FULTON MD on Jul 21 2023 8:16AM EST [id number] [facility] CT CHEST W IVCONon CT CHEST W IVCON * * *Final Report* * * DATE OF EXAM: Jul 21 2023 8:04AM [facility] [id number] - CT CHEST W IVCON / PROCEDURE REASON: Chest trauma, blunt * * * * Physician Interpretation * * * * EXAMINATION: CHEST CT WITH CONTRAST CLINICAL HISTORY: Sudden onset of expressive aphasia. Abnormal chest x-ray. This examination is requested for further evaluation. Technique: Spiral CT acquisition of the chest from the thoracic inlet to the upper abdomen following IV contrast. MQ: CTCW_6 Contrast: 100 mL Omnipaque [address] Radiation dose: Integrated Dose-length product (DLP) for this visit = 565 mGy*cm CT Dose Reduction Employed: Automated exposure control (AEC) Comparison: No prior CT scan of the chest available for comparison. The study is correlated with the portable AP CXR dated 07/19/2023. RESULT: Limitations: None. Lines, tubes, and devices: None. Lung parenchyma and airways: The trachea and mainstem bronchi appear patent and devoid of endobronchial lesion. The study confirms the presence of an approximately 36 (AP) x 25 (trans-) x 42 (long) mm lingular mass which is associated with abrupt narrowing or occlusion of the lingular bronchus (2:87). A lingular airspace opacity distal to the central mass is likely secondary to postobstructive atelectasis/pneumoniti s. There are numerous tiny centrilobular nodules adjacent to the mass in the lingula likely secondary to nonspecific bronchiolitis. Multiple additional solid and nonsolid nodules are scattered in both lungs (for example, RUL, 2:34 and 79; RML, 2:109; RLL, 2:101, 105, 123, 137 and 146; and REILLY, 2:33, 46, and 51). The largest indeterminate nodule is a nonsolid nodule in the right lower lobe (2:123) which measures 16 x 11 mm. There are mild, upper lobe predominant centrilobular emphysematous changes. There is multifocal bilateral bronchial wall thickening, consistent with chronic airways inflammation. Pleural space: No pleural effusion or focal pleural thickening is identified. There is no pneumothorax. Lower neck, lymph nodes, and mediastinum: The thyroid gland appears unremarkable. No supraclavicular lymphadenopathy is identified. I suspect a mildly enlarged left hilar lymph node which measures 11 mm in short axis (3:88). A mildly enlarged right hilar lymph node which measures 12 mm in short axis (3:88) also noted. Subcentimeter lymph nodes are scattered in both axillae and the mediastinum including the bilateral paratracheal and subcarinal regions. The esophagus appears non-dilated. Heart, pericardium, and thoracic vessels: The thoracic aorta appears normal in course and caliber. There is a common origin of the brachiocephalic and left common carotid arteries, a normal anatomic variant. The main and central pulmonary arteries are within normal limits of diameter. No specific cardiac chamber enlargement is identified. There is no pericardial effusion. Bones and soft tissues: There is superior endplate depression of the T11 vertebral body. There is a remote fracture of the posterolateral aspect of the left ninth rib. No lytic or destructive osseous lesion is identified. There is an 11 x 11 mm indeterminate nodule with slightly lobular margins in the lateral aspect of the right breast (3:84). Upper abdomen: Concurrently performed CT examination the abdomen and pelvis has been interpreted separately. Political Cartoonist (topogram) images: No additional findings. IMPRESSION: 1. There is a lingular soft tissue mass associated with narrowing or occlusion of the lingular bronchus, suspicious for primary bronchogenic neoplasm. 2. Multiple additional solid and nonsolid nodules are scattered in both lungs as described. Inflammatory versus neoplastic etiologies are the most common diagnostic considerations for these nodules. 3. There are mildly enlarged bilateral hilar lymph nodes, possibly neoplastic in nature. 4. There is an indeterminate soft tissue nodule in the right breast. Correlation with dedicated breast imaging is suggested. Correlation of these findings with PET/CT may be helpful. ACTIONABLE RESULT: FOLLOW-UP Acuity: Actionable Findings: Female reproductive tract (breast) Routing code: WH_2 Recommendation: MG Diagnostic mamms (lt, rt, bi) Time Frame: Non-urgent, but prompt follow-up COMMUNICATION: Results will be communicated with the ordering provider via [employer] staff message or phone message by [facility] within 2 business days of report finalization. --END OF FINDING-- Breakfast Cook: EVGENY Transcribe Date/Time: Jul 21 2023 8:16A Dictated by : TOI PADGETT MD This examination was interpreted and the report reviewed and electronically signed by: TOI PADGETT MD on Jul 21 2023 8:39AM EST [id number] ACTIONABLE Invalid Interpretation Code [facility] HCG Preg Ur Qlon 07-21-2023 HCG ( test) Ql (U) Negative Normal Negative [facility] Comment on above: Order Comment: Speci men Type: URINE SPECIMENOrdering Facility: [facility] Address: [address] [place] [address] Result Comment: This test is intended to aid in the early detection of . Very dilute urine samples, as indicated by a low specific gravity, may not contain outbound sales representative levels of hCG. This test detects intact hCG only. This test does not reliably detect hCG degradation products, including free-beta subunit and beta-core fragment. Therefore, this test may show reduced reactivity in urine after 8 weeks gestation. A number of conditions other than , including trophoblastic disease and certain non-trophoblastic neoplasms cause elevated levels of hCG. As with any assay employing mouse antibodies, the possibility exists for interference by human anti-mouse antibodies (HAMA) in the specimen. The test provides a presumptive diagnosis for . Performed By: #### 2 106-3 ####[facility] [id number] [place] [address] [place] HISTORY PHYSICALon 3 HISTORY PHYSICAL HNO ID: [id number] Author: Raiza Ross MD Service: Pulmonary Disease Author Type: Physician Type: HANDP Filed: 07/22/2023 9:31 AM Note Text: PULMONARY MEDICINE CONSULT Patient Name: Lashell Segura REASON FOR CONSULT: Lung nodule bx REQUESTING PHYSICIAN: Dr. Connor Art PRIMARY CARE PHYSICIAN: Martine Marrufo APRN.SLOT MACHINE KEY PERSON CHIEF COMPLAINT: Lung Bx HISTORY OF PRESENT ILLNESS: Lashell Segura is a 53 year old female, Ht 160 cm (5' 3) BMI 32.18 kg/m2, with a history of HLD (atorvastatin 40mg) Admitted for expressive dysphagia followed by generalized tonic clonic seizure. Pt found to have L. Temporal lobe lesion with vasogenic edema concerning for metastatic disease and CXR with REILLY lung mass. Imaging thus far: CT Chest w IV CON 07/21 notable for lingular soft tissue mass associated with lingular bronchus occlusion, multiple b/l solid/ nonsolid nodules and b/l hilar lymphadenopathy. 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 On exam pt reports she has not had any worsening SOB, cough, difficulty breathiing recently. Only expierences cough at work. Endorses 1 x episode of scant hemoptysis 1 week prior. She denies any weight changes, fatigue, new night sweats (has had night sweats since menopause 2016), skin changes/bruising, increased thirst, urination. No past medical history on file. No past surgical history on file. No family history on file. Social History Tobacco Use Smoking status: Every Day Packs/day: 1.00 Years: 20.00 Additional pack years: 0.00 Total pack years: 20.00 Types: Cigarettes Substance Use Topics Alcohol use: Yes Comment: Occassionally Drug use: Not Currently ALLERGIES: ALLERGIES Allergen Reactions Eggs [Egg] Hives Latex Hives Penicillins Unknown CURRENT MEDICATIONS: atorvastatin (LIPITOR) 40 mg tablet, Take 40 mg by mouth once daily., Disp: , Rfl: DULoxetine (CYMBALTA) 60 mg capsule, Take 60 mg by mouth once daily., Disp: , Rfl: Current Facility-Administered Medications Medication Dose Route Frequency ondansetron (PF) 4 mg injection (ZOFRAN) 4 mg INTRAVENOUS q 6 H PRN prochlorperazine 10 mg injection (COMPAZINE) 10 mg INTRAVENOUS q 6 H PRN trimethobenzamide 200 mg injection (TIGAN) 200 mg INTRAMUSCULAR q 6 H PRN senna-docusate 8.6-50 mg 1 tablet (SENNA-S) 1 tablet ORAL/FEEDING TUBE BID NaCl 0.9% iv infusion 75 mL/hr INTRAVENOUS CONTINUOUS acetaminophen 650 mg tab(s) (TYLENOL) 650 mg ORAL/FEEDING TUBE q 4 H PRN levETIRAcetam 1,000 mg tab(s) (KEPPRA) 1,000 mg ORAL/FEEDING TUBE BID DULoxetine 60 mg cap(s) (CYMBALTA) 60 mg ORAL DAILY atorvastatin 40 mg tab(s) (LIPITOR) 40 mg ORAL/FEEDING TUBE AT BEDTIME nicotine 21 mg/24 hr 1 Patch (NICODERM) 1 Patch TRANSDERMAL DAILY And nicotine -- REMOVE patch OTHER DAILY And nicotine - verify patch OTHER q 8 H nicotine polacrilex 2 mg gum (NICORETTE) 2 mg ORAL q 2 H PRN NaCl 0.9% iv flush bag 20 mL INTRAVENOUS PRN LORazepam 1 mg injection (ATIVAN) 1 mg INTRAVENOUS q 6 H PRN mupirocin 2 % 0.5 g nasal ointment (BACTROBAN) 0.5 g NASAL BID REVIEW OF SYSTEMS GENERAL:No weight loss, malaise or fevers. HEENT:Negative for frequent or significant headaches, No changes in hearing or vision, no nose bleeds or other nasal problems NECK:Negative for goiter, pain or significant neck swelling RESPIRATORY: See HPI CARDIOVASCULAR: Negative for chest pain, leg swelling, hypertension, CHF or palpitations, Negative for chest pain, leg swelling or palpitations. GASTROINTESTINAL: No nausea, vomiting, or diarrhea and Negative for abdominal discomfort, blood in stools or black stools or change in bowel habits : No history of dysuria, frequency or incontinence MUSCULOSKELETAL: positive for spondylolysis SKIN: Negative for lesions, rash, and itching. PSYCH: Negative for sleep disturbance, mood disorder and recent psychosocial stressors. HEMATOLOGIC/LYMPHOLOGY :Negative for prolonged bleeding, bruising easily or swollen nodes. ENDOCRINE: Negative for cold or heat intolerance, polyuria or polydipsia. NEURO: SEE HPI The remainder of the ROS was negative. PHYSICAL EXAMINATION: VITAL SIGNS: BP 83/51 Pulse 91 Temp (Src) 98.4 (Oral) Resp 16 Ht 5' 3 (1.60m) Wt 181 lb 10.5 oz (82.4kg) SpO2 98% BMI 32.19 kg/(m2). O2 Therapy: Room Air General appearance: well appearing, alert, and in no acute distress Skin: skin color, texture, turgor normal, no rashes or lesions HEENT: Normocephalic, moist mucous membranes, not congested, and eyes anicteric Heme/Lymph: not examined Respiratory: lungs clear to auscultation no wheezing or rhonchi Cardiovascular: RRR without murmur, gallop, or rubs. No ectopy Gastrointestinal: Normal abdominal exam, Abdomen soft, non-tender. (more content not included)... [facility] H[facility]: [id number] Author: Verona Araujo APRN.CNP Service: Sepsis Emergency Response Team Author Type: Nurse Practitioner Type: Chg in Clinical Condition Filed: 07/21/2023 7:20 PM Note Text: SERT (SEPSIS EMERGENCY RESPONSE TEAM) 24 HOUR FOLLOW-UP NOTE Date/Time of Last Fired SERT BPA: 07/20/2023 9:16 PM 24 HOUR FOLLOW-UP: Date and Time: 07/21/2023 7:20 PM Sepsis Identified During SERT Activation: No Comments: Remains hemodynamically stable and afebrile. On room air. Blood pressures improved from last night. No further SERT needs at this time. July 21, 2023 7:16 PM Verona Araujo APRN.SLOT MACHINE KEY PERSON SERT BPA in Last 24 Hours Sepsis SERT Notifications Date Triggers 07/20/232115 File Doc Flowsheets Pulse: 101 Pulse: 101 [place] Coma Scale Totals (Calculated): 14 [place] Coma Scale Totals (Calculated): 14 Rule: [facility] NO DISCHARGE DATE [220398] WBC result: 14.22 k/uL SIGNATURE: Verona Araujo APRN.SLOT MACHINE KEY PERSON PATIENT NAME: Lashell Segura DATE: July 21, 2023 TIME: 7:20 PM Normal [facility] HNO ID: [id number] Author: Neha Gayle APRN.TUNNEL ELASTIC OPERATOR CHAINSTITCH Service: Sepsis Emergency Response Team Author Type: Nurse Practitioner Type: Chg in Clinical Condition Filed: 07/21/2023 2:54 AM Note Text: SERT (SEPSIS EMERGENCY RESPONSE TEAM) SCREENING NOTE Date and Time: 07/20/2023 9:16 PM Patient has been electronically reviewed by the Sepsis Emergency Response Team. No indication for SERT activation at this time; will defer to primary team regarding continued monitoring and intervention. Down treneding leukocytosis. BP 90/38; RN to recheck. Repeat only slightly improved. Will Continue to monitor. Please utilize MED SEPSIS order set if clinically indicated, decompensation, or fever. SERT BPA in Last 24 Hours Sepsis SERT Notifications Date Triggers 07/20/232115 File Doc Flowsheets Pulse: 101 Pulse: 101 Ra Coma Scale Totals (Calculated): 14 [place] Coma Scale Totals (Calculated): 14 Rule: [facility] NO DISCHARGE DATE [208219] WBC result: 14.22 k/uL Trending of last 3 clinical abnormalities associated with Severe Sepsis or Septic Shock 07/20/2023213707/20/2023213907/21/2023 0135 Temp: -- -- 36.5 ?C (97.7 ?F) Pulse: -- -- 82 Resp: -- -- 16 BP: 95/54 102/56 97/61 MAP: 61 66 70 O2 Sat: -- -- 93 % Abnormal Labs Indicating Infection/Organ Failure in the Last 24 Hours WBC (k/uL) Date Value 07/20/2023 14.22 (H) SIGNATURE: Neha Gayle APRN.TUNNEL ELASTIC OPERATOR CHAINSTITCH PATIENT NAME: Lashell Segura DATE: July 21, 2023 TIME: 2:54 AM Normal [facility] NURSING PROGon 07-21-2023 NURSING PROG HNO ID: [id number] Author: Rochelle Izquierdo RN Service: Nursing Author Type: Registered Nurse Type: Nursing Progress Note Filed: 07/21/2023 4:03 PM Note Text: Spoke to EFRAIN Holliday . Patient scheduled for bronchoscopy on 07/22/23. RN aware that patient will need order to be NPO after midnight the night before procedure and an order to hold anticoagulants per protocol will be needed. RN aware that H23 Rn will call for detailed report the morning of procedure. Normal [facility] 07-20-2023 [facility] HNO ID: [id number] Author: Kimberly Gottlieb RT(R) Service: Radiology Author Type: Ferry Captain Type: Allied Health Filed: 07/20/2023 10:10 AM Note Text: Radiology Service Progress Note PATIENT NAME: Lashell Segura DATE OF SERVICE: July 20, 2023 TIME: 10:08 AM PATIENT IDENTITY VERIFICATION COMPLETED USING TWO (2) IDENTIFIERS: Name and Date of confirmed by patient verbally and Name and Date of confirmed by identification band. FALL SCREENING: Has the patient had 2 falls in the last year or 1 fall with injury or currently using an Ambulatory Assistive Device (Walker, Cane, Wheelchair, Crutches, etc.)? Inpatient: Screened on floor PATIENT GENDER DATA: Female. status: : No status: NO. PATIENT RELEVANT IMPLANT DATA REVIEWED: Yes RADIOLOGY DEPARTMENT: MR; Exam(s) Completed: Head: Routine Brain PERIPHERAL IV DATA: Inpatient: see LDA documentation SIGNED BY: RT Julien(R) July 20, 2023 10:08 AM Normal [facility] Basic metabolic 2000 panelon 07-20-2023 Anion gap [Moles/Vol] 14 mmol/L Normal 9-18 [facility] Comment on above: Order Comment: Speci men Type: URINE SPECIMEN [facility] Address: [address] [place] [address] Performed By: #### 2 4356-8 #### [facility] CLIA [id number] [address] [place] [address] [place] Calcium [Mass/Vol] 9.6 mg/dL Normal 8.5-10.2 [facility] Comment on above: Order Comment: Speci men Type: URINE SPECIMEN [facility] Address: [address] [place] [address] Performed By: #### 2 4356-8 #### [facility] CLIA [id number] [address] [place] [address] [place] Chloride [Moles/Vol] 105 mmol/L Normal 97-105 [facility] Comment on above: Order Comment: Speci men Type: URINE SPECIMEN [facility] Address: [address] [place] [address] Performed By: #### 2 4356-8 #### [facility] CLIA [id number] [address] [place] [address] [place] CO2 [Moles/Vol] 19 mmol/L Low 22-30 [facility] Comment on above: Order Comment: Speci men Type: URINE SPECIMEN [facility] Address: [address] [place] [address] Performed By: #### 2 4356-8 #### [facility] CLIA [id number] [address] [place] [address] [place] Creatinine [Mass/Vol] 0.59 mg/dL Normal 0.58-0.96 [facility] Comment on above: Order Comment: Speci men Type: URINE SPECIMEN [facility] Address: [address] [place] [address] Performed By: #### 2 4356-8 #### [facility] CLIA [id number] [facility] [place] [address] [place] Creatinine and Glomerular filtration rate.predicted panel (S/P/Bld) 107 mL/min/1.73m??? Normal >=60 [facility] Comment on above: Order Comment: Speci men Type: URINE SPECIMEN [facility] Address: [address] [place] [address] Result Comment: Jina mated Glomerular Filtration Rate (eGFR) is calculated using the 2020 CKD-EPI creatinine equation. This equation utilizes serum creatinine, sex, and age as parameters. The creatinine assay has traceable calibration to isotope dilution-mass spectrometry. Refer to KDIGO guidelines for clinical interpretation. In patients with unstable renal function, e.g. those with acute kidney injury, the eGFR may not accurately reflect actual GFR. Performed By: #### 2 4356-8 #### [facility] CLIA [id number] [address] [place] [address] [place] Glucose [Mass/Vol] 137 mg/dL High 74-99 [facility] Comment on above: Order Comment: Speci men Type: URINE SPECIMEN [facility] Address: [address] [place] [address] Result Comment: The [place] Diabetes Association (ADA) provides guidance for cutoff values for fasting glucose and random glucose. The ADA defines fasting as no caloric intake for at least 8 hours. Fasting plasma glucose results between 100 to 125 mg/dL indicate increased risk for diabetes (prediabetes). Fasting plasma glucose results greater than or equal to 126 mg/dL meet the criteria for diagnosis of diabetes. In the absence of unequivocal hyperglycemia, results should be confirmed by repeat testing. In a patient with classic symptoms of hyperglycemia or hyperglycemic crisis, random plasma glucose results greater than or equal to 200 mg/dL meet the criteria for diagnosis of diabetes. Reference: Standards of Medical Care in Diabetes 2016, English Diabetes Association. Diabetes Care. 2016.39(Suppl 1). Performed By: #### 2 4356-8 #### [facility] CLIA [id number] [address] [place] [address] [place] Potassium [Moles/Vol] 4.0 mmol/L Normal 3.7-5.1 [facility] Comment on above: Order Comment: Speci men Type: URINE SPECIMEN [facility] Address: [address] [place] [address] Performed By: #### 2 4356-8 #### [facility] CLIA [id number] [address] [place] [address] [place] Sodium [Moles/Vol] 138 mmol/L Normal 136-144 [facility] Comment on above: Order Comment: Speci men Type: URINE SPECIMEN [facility] Address: [address] [place] [address] Performed By: #### 2 4356-8 #### [facility] CLIA [id number] [address] [place] [address] [place] Urea nitrogen [Mass/Vol] 12 mg/dL Normal 7-21 [facility] Comment on above: Order Comment: Speci men Type: URINE SPECIMEN [facility] Address: [address] [place] [address] Performed By: #### 2 4356-8 #### [facility] CLIA [id number] [address] [place] [address] [place] CBC W Auto Differential pane l (Bld)on 07-20-2023 Basophils (Bld) [#/Vol] 0.05 10*3/uL Normal <0.11 [facility] Comment on above: Order Comment: Speci men Type: BLOOD SPECIMENOrdering Facility: [facility] Address: [address] [place] [address] Performed By: #### 5 7021-8 ####[facility]CLIA [id number] [place] [address] [place] Basophils/100 WBC (Bld) 0.4 % Normal [facility] Comment on above: Order Comment: Speci men Type: BLOOD SPECIMENOrdering Facility: [facility] Address: [address] [place] [address] Performed By: #### 5 7021-8 ####[facility]CLIA [id number] [place] [address] [place] Differential cell count method Nom (Bld) Auto Normal [facility] Comment on above: Order Comment: Speci men Type: BLOOD SPECIMENOrdering Facility: [facility] Address: [address] [place] [address] Performed By: #### 5 7021-8 ####[facility]CLIA [id number] [place] [address] [place] Eosinophils (Bld) [#/Vol] 0.04 10*3/uL Normal <0.46 [facility] Comment on above: Order Comment: Speci men Type: BLOOD SPECIMENOrdering Facility: [facility] Address: [address] [place] [address] Performed By: #### 5 7021-8 ####[facility]CLIA [id number] [place] [address] [place] Eosinophils/100 WBC (Bld) 0.3 % Normal [facility] Comment on above: Order Comment: Speci men Type: BLOOD SPECIMENOrdering Facility: [facility] Address: [address] [place] [address] Performed By: #### 5 7021-8 ####[facility]CLIA [id number] [place] [address] [place] Erythrocyte distribution width (RBC) [Ratio] 13.0 % Normal 11.5-15.0 [facility] Comment on above: Order Comment: Speci men Type: BLOOD SPECIMENOrdering Facility: [facility] Address: [address] [place] [address] Performed By: #### 5 7021-8 ####[facility]CLIA [id number] [place] [address] [place] Hematocrit (Bld) [Volume fraction] 39.5 % Normal 36.0-46.0 [facility] Comment on above: Order Comment: Speci men Type: BLOOD SPECIMENOrdering Facility: [facility] Address: [address] [place] [address] Performed By: #### 5 7021-8 ####[facility]CLIA [id number] [place] [address] [place] Hemoglobin (Bld) [Mass/Vol] 13.6 g/dL Normal 11.5-15.5 [facility] Comment on above: Order Comment: Speci men Type: BLOOD SPECIMENOrdering Facility: [facility] Address: [address] [place] [address] Performed By: #### 5 7021-8 ####[facility]CLIA [id number] [place] [address] [place] Immature granulocytes (Bld) [#/Vol] 0.08 10*3/uL Normal <0.10 [facility] Comment on above: Order Comment: Speci men Type: BLOOD SPECIMENOrdering Facility: [facility] Address: [address] [place] [address] Performed By: #### 5 7021-8 ####[facility]CLIA [id number] [place] [address] [place] Immature granulocytes/100 WBC (Bld) 0.6 % Normal [facility] Comment on above: Order Comment: Speci men Type: BLOOD SPECIMENOrdering Facility: [facility] Address: [address] [place] [address] Performed By: #### 5 7021-8 ####[facility]CLIA [id number] [place] [address] [place] Lymphocytes (Bld) [#/Vol] 1.43 10*3/uL Normal 1.00-4.00 [facility] Comment on above: Order Comment: Speci men Type: BLOOD SPECIMENOrdering Facility: [facility] Address: [address] [place] [address] Performed By: #### 5 7021-8 ####[facility]CLIA [id number] [place] [address] [place] Lymphocytes/100 WBC (Bld) 10.1 % Normal [facility] Comment on above: Order Comment: Speci men Type: BLOOD SPECIMENOrdering Facility: [facility] Address: [address] [place] [address] Performed By: #### 5 7021-8 ####[facility] LABIA [id number] [place] [address] [place] MCH (RBC) [Entitic mass] 31.6 pg Normal 26.0-34.0 [facility] Comment on above: Order Comment: Speci men Type: BLOOD SPECIMENOrdering Facility: [facility] Address: [address] [place] [address] Performed By: #### 5 7021-8 ####[facility]CLIA [id number] [place] [address] [place] MCHC (RBC) [Mass/Vol] 34.4 g/dL Normal 30.5-36.0 [facility] Comment on above: Order Comment: Speci men Type: BLOOD SPECIMENOrdering Facility: [facility] Address: [address] [place] [address] Performed By: #### 5 7021-8 ####[facility]CLIA [id number] [place] [address] [place] MCV (RBC) [Entitic vol] 91.6 fL Normal 80.0-100.0 [facility] Comment on above: Order Comment: Speci men Type: BLOOD SPECIMENOrdering Facility: [facility] Address: [address] [place] [address] Performed By: #### 5 7021-8 ####[facility]CLIA [id number] [place] [address] [place] Monocytes (Bld) [#/Vol] 0.21 10*3/uL Normal <0.87 [facility] Comment on above: Order Comment: Speci men Type: BLOOD SPECIMENOrdering Facility: [facility] Address: [address] [place] [address] Performed By: #### 5 7021-8 ####[facility]CLIA [id number] [place] [address] [place] Monocytes/100 WBC (Bld) 1.5 % Normal [facility] Comment on above: Order Comment: Speci men Type: BLOOD SPECIMENOrdering Facility: [facility] Address: [address] [place] [address] Performed By: #### 5 7021-8 ####[facility]CLIA [id number] [place] [address] [place] Neutrophils (Bld) [#/Vol] 12.41 10*3/uL High 1.45-7.50 [facility] Comment on above: Order Comment: Speci men Type: BLOOD SPECIMENOrdering Facility: [facility] Address: [address] [place] [address] Performed By: #### 5 7021-8 ####[facility]CLIA [id number] [place] [address] [place] Neutrophils/100 WBC (Bld) 87.1 % Normal [facility] Comment on above: Order Comment: Speci men Type: BLOOD SPECIMENOrdering Facility: [facility] Address: [address] [place] [address] Performed By: #### 5 7021-8 ####[facility]CLIA [id number] [place] [address] [place] Nucleated RBC (Bld) [#/Vol] 10*3/uL Normal <0.01 [facility] Comment on above: Order Comment: Speci men Type: BLOOD SPECIMENOrdering Facility: [facility] Address: [address] [place] [address] Performed By: #### 5 7021-8 ####[facility] [id number] [place] [address] [place] Nucleated RBC/100 WBC (Bld) [Ratio] 0.0 /100 WBC Normal [facility] Comment on above: Order Comment: Speci men Type: BLOOD SPECIMENOrdering Facility: [facility] Address: [address] [place] [address] Performed By: #### 5 7021-8 ####[facility]IA [id number] [place] [address] [place] Platelet mean volume (Bld) [Entitic vol] 8.7 fL Low 9.0-12.7 [facility] Comment on above: Order Comment: Speci men Type: BLOOD SPECIMENOrdering Facility: [facility] Address: [address] [place] [address] Performed By: #### 5 7021-8 ####[facility] [id number] [place] [address] [place] Platelets (Bld) [#/Vol] 267 10*3/uL Normal 150-400 [facility] Comment on above: Order Comment: Speci men Type: BLOOD SPECIMENOrdering Facility: [facility] Address: [address] [place] [address] Performed By: #### 5 7021-8 ####[facility] [id number] [place] [address] [place] RBC (Bld) [#/Vol] 4.31 10*6/uL Normal 3.90-5.20 [facility] Comment on above: Order Comment: Speci men Type: BLOOD SPECIMENOrdering Facility: [facility] Address: [address] [place] [address] Performed By: #### 5 7021-8 ####[facility] LABCLIA [id number] [place] [address] [place] WBC (Bld) [#/Vol] 14.22 10*3/uL High 3.70-11.00 [facility] Comment on above: Order Comment: Speci men Type: BLOOD SPECIMENOrdering Facility: [facility] Address: [address] [place] [address] Performed By: #### 5 7021-8 ####[facility] LABCLIA [id number] [place] [address] [place] CONFIRM BLOOD TYPEon 11-26-2 023 ABO A Normal [facility] Comment on above: Order Comment: Speci men Type: URINE SPECIMEN [facility] Address: [address] [place] [address] Performed By: #### 2 4356-8 #### [facility] CLIA [id number] [address] [place] [address] [place] Rh Nom (Bld) Negative Normal [facility] Comment on above: Order Comment: Speci men Type: URINE SPECIMEN [facility] Address: [address] [place] [address] Performed By: #### 2 4356-8 #### [facility] CLIA [id number] [address] [place] [id number] [place] CONSULTon 07-20-2023 CONSULT HNO ID: [id number] Author: Svitlana Landa APRN.CRIS Service: Neurology General Author Type: Nurse Practitioner Type: Consults Filed: 07/21/2023 12:42 PM Note Text: INITIAL CONSULT - GENERAL NEUROLOGY SERVICE DATE: 07/20/2023 SERVICE TIME: 9:09AM Team Requesting Consult: FRANCIS Current Attending Provider: Reid Redding MD Neurology was asked to evaluate Lashell Segura, a 53 year old female. Our recommendations of care will be communicated by shared medical record. Subjective HPI: Lashell Segura is a 53 year old female with PMHx current tobacco use (1 PPD x >10 years) who presented to OSH ED 07/19 for seizure like activity. Per , patient was having normal day. 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 At 2320 at OSH patient noted to have episode of right gaze and head deviation to right, with arms tonic and flexed. There was notation this was followed by GTC but was not confirmed by . She received 2mg IV ativan and IV LEV 4.5g. A CTH showed L temporal lobe vasogenic edema with 2.4mm midline shift. A CXR also showed 3.6x4.4cm REILLY lung mass, concerning for malignancy. She was transferred to [facility] for further management. She remains aphasic. Patient has no prior seizure history. No recent fever, chills. Denies history of GTC or things concerning for such, such as episodes of urinary incontinence of blood on pillow. Current Facility-Administered Medications Medication Dose Route Frequency ondansetron (PF) 4 mg injection (ZOFRAN) 4 mg INTRAVENOUS q 6 H PRN prochlorperazine 10 mg injection (COMPAZINE) 10 mg INTRAVENOUS q 6 H PRN trimethobenzamide 200 mg injection (TIGAN) 200 mg INTRAMUSCULAR q 6 H PRN senna-docusate 8.6-50 mg 1 tablet (SENNA-S) 1 tablet ORAL/FEEDING TUBE BID NaCl 0.9% iv infusion 75 mL/hr INTRAVENOUS CONTINUOUS acetaminophen 650 mg tab(s) (TYLENOL) 650 mg ORAL/FEEDING TUBE q 4 H PRN levETIRAcetam 1,000 mg tab(s) (KEPPRA) 1,000 mg ORAL/FEEDING TUBE BID DULoxetine 60 mg cap(s) (CYMBALTA) 60 mg ORAL DAILY atorvastatin 40 mg tab(s) (LIPITOR) 40 mg ORAL/FEEDING TUBE AT BEDTIME iv contrast (radiology procedure) INTRAVENOUS DIRECTED PRN iv contrast (radiology procedure) INTRAVENOUS DIRECTED PRN iv contrast (radiology procedure) INTRAVENOUS DIRECTED PRN nicotine 21 mg/24 hr 1 Patch (NICODERM) 1 Patch TRANSDERMAL DAILY And [START ON 07/21/2023] nicotine -- REMOVE patch OTHER DAILY And nicotine - verify patch OTHER q 8 H No past medical history on file. No past surgical history on file. Social History Tobacco Use Smoking status: Every Day Packs/day: 1.00 Years: 20.00 Additional pack years: 0.00 Total pack years: 20.00 Types: Cigarettes Substance Use Topics Alcohol use: Yes Comment: Occassionally Drug use: Not Currently No family history on file. ALLERGIES Allergen Reactions Eggs [Egg] Hives Penicillins Unknown Objective PHYSICAL EXAM: General Appearance: Well appearing, alert, in no acute distress, well-hydrated, well nourished. Skin: Skin color, texture, turgor normal, no suspicious rashes or lesions Head: Normocephalic Oropharynx: Lips, mucosa, and tongue normal Abdomen: Abdomen soft, non-tender. Extremities: No deformities, edema, skin discoloration, clubbing or cyanosis. Neurological: Mental Status: Alert, oriented to person, place and time and Follows commands, but some difficulty with more complex commands. A few paraphasic errors noted. Cranial Nerves: CNII: Visual acuity normal, Visual adam full to confrontation, No APD noted on exam CNIII, IV, : Pupils equal, round and reactive to light, full extraoccular movements, without nystagmus CN V: Facial sensation intact bilaterally to fine touch CN VII: Facial muscles symmetric and strong, No noted facial droop CN VIII: Hears finger rub well bilaterally CN IX: Gag Reflex Not examined CN X: Palate elevates symmetrically CN XI: Full strength shoulder shrug bilaterally CN XII: Tongue protrusion full and midline Non-Dilated Fundiscopic Examination: Deferred Examination Motor Exam: Tone - Normal Bulk - no muscle atrophy Delt Biceps Triceps Wrist Ext Wrist Flex Right 5/5 5/5 5/5 5/5 5/5 Left 5/5 5/5 5/5 5/5 5/5 Hip Flex Hip Ext BiFem (knee flex) Quads (knee ext) Gastroc (plantflx) TibAnt (Dorsiflx) Right 5/5 5/5 5/5 5/5 5/5 5/5 Left 5/5 5/5 5/5 5/5 5/5 5/5 Pathological Reflexes: Babinski: Bilateral Downward response Vinson: Bilateral Negative Sensation: Intact to light touch Coordination: Finger-to- nose-finger intact bilaterally and Ezgv-oa-ofpa intact bilaterally. LABS/DATA: WBC (k/uL) Date Value 07/20/2023 14.22 07/19/2023 16.30 RBC (m/uL) Date Value 07/20/2023 4.31 07/19/2023 4.24 Platelet Count (k/uL) Date Value 07/20/2023 267 07/19/2023 296 BUN (mg/dL) Date Value 07/19/2023 20 Creatinine (mg/dL) Date (more content not included)... Normal [facility] CTA HEAD W IVCONon 3 CTA HEAD W IVCON * * *Final Report* * * DATE OF EXAM: Jul 19 2023 10:04PM [facility] [place] HEAD W IVCON / PROCEDURE REASON: Focal neuro deficit, new, fixed, or worsening, 4.5 to 24 hours, NIHSS < 6, strok * * * * Physician Interpretation * * * * EXAMINATION: CTA NECK W IVCON, CTA HEAD W IVCON HISTORY: Suspected left temporal mass TECHNIQUE: Spiral high resolution axial images were obtained through the head, neck and superior mediastinum following bolus administration of intravenous contrast for CT angiography. 3D maximum intensity projection images were created, reviewed and archived . MQ: CTAHN_4 Contrast: 80 mL Omnipaque [address] Radiation dose: Integrated Dose-Length Product (DLP) for this visit = 537 mGy*cm. CT Dose Reduction Employed: No dose reduction techniques were required COMPARISON: Noncontrast CT brain 07/19/2023 RESULT: BRAIN: Evaluation of the individual slices of the CTA demonstrates no evidence of an acute stroke. ASPECT Score = 10 Hemorrhage: No evidence of acute intracranial hemorrhage. ECASS hemorrhagic transformation score: Not Applicable Other: Redemonstrated hypoattenuation and vasogenic edema within the left temporal lobe with extension along the left periventricular white matter. Questionable small focus of enhancement centrally within the area of hypoattenuation. Mass effect related to these findings is unchanged, with persistent slight rightward midline shift. NECK: Soft tissues: No pathological enlarged cervical lymph nodes identified. Spine: Alignment is normal. Mild to moderate degenerative changes are present. Lung apices: Large left hilar infiltrative mass measures approximately 4.1 x 6.2 cm. This abuts the left mainstem bronchus, left main pulmonary artery, and encases the left superior pulmonary vein. The left upper lobe bronchus is encased and appears at least partially occluded. This mildly prominent right hilar lymph node. There are multiple other spiculated pulmonary nodules throughout the visualized portions of the bilateral lungs concerning for additional sites of disease. CT ARTERIOGRAM: Extracranial Circulation: Aortic Arch: There is a normal branching pattern from the aortic arch. There is no significant stenosis in the proximal brachiocephalic vessels. Carotid Stenosis: Right Common: No significant stenosis. Right Internal Carotid Plaque: Mild plaque. Right Internal Carotid Stenosis (% by NASCET Criteria): 0 Left Common: No significant stenosis. Left Internal Carotid Plaque: No significant plaque formation. Left Internal Carotid Stenosis (% by NASCET Criteria): 0 Cervical Vertebral Arteries: Patency: Bilateral Dominance: Codominant Intracranial Circulation: Anterior Circulation: No large vessel occlusion or high-grade stenosis. No aneurysm or evidence of vascular malformation. Vertebrobasilar Circulation: No large vessel occlusion or high-grade stenosis. No aneurysm or evidence of vascular malformation. Political Cartoonist (topogram) images: No additional findings. IMPRESSION: 1. Large left hilar pulmonary mass as described, highly concerning for malignancy. 2. Numerous additional spiculated bilateral pulmonary nodules are concerning for metastatic disease. Recommend dedicated chest CT for complete evaluation. 3. Redemonstrated hypoattenuation and vasogenic edema centered in the left temporal lobe, with potential small enhancing focus within, concerning for intracranial metastatic disease. Brain MRI with and without contrast is recommended. 4. No cervical or intracranial large vessel occlusion or high-grade stenosis. No aneurysm, dissection, or evidence of vascular malformation. Arterial blood flow was measured to detect acute large vessel occlusion by computer aided detection software: Not Performed. Concordance between software and imaging review: Not Applicable. Breakfast Cook: EVGENY Transcribe Date/Time: Jul 19 2023 10:42P Dictated by : RUCHI ORTEGA MD This examination was interpreted and the report reviewed and electronically signed by: RUCHI ORTEGA MD on Jul 19 2023 11:07PM EST [id number] Normal [facility] CTA NECK W IVCONon 3 CTA NECK W IVCON * * *Final Report* * * DATE OF EXAM: Jul 19 2023 10:04PM [facility] [place] CTA NECK W IVCON / PROCEDURE REASON: Focal neuro deficit, new, fixed, or worsening, 4.5 to 24 hours, NIHSS < 6, strok * * * * Physician Interpretation * * * * EXAMINATION: CTA NECK W IVCON, CTA HEAD W IVCON HISTORY: Suspected left temporal mass TECHNIQUE: Spiral high resolution axial images were obtained through the head, neck and superior mediastinum following bolus administration of intravenous contrast for CT angiography. 3D maximum intensity projection images were created, reviewed and archived . MQ: CTAHN_4 Contrast: 80 mL Omnipaque [address] Radiation dose: Integrated Dose-Length Product (DLP) for this visit = 537 mGy*cm. CT Dose Reduction Employed: No dose reduction techniques were required COMPARISON: Noncontrast CT brain 07/19/2023 RESULT: BRAIN: Evaluation of the individual slices of the CTA demonstrates no evidence of an acute stroke. ASPECT Score = 10 Hemorrhage: No evidence of acute intracranial hemorrhage. ECASS hemorrhagic transformation score: Not Applicable Other: Redemonstrated hypoattenuation and vasogenic edema within the left temporal lobe with extension along the left periventricular white matter. Questionable small focus of enhancement centrally within the area of hypoattenuation. Mass effect related to these findings is unchanged, with persistent slight rightward midline shift. NECK: Soft tissues: No pathological enlarged cervical lymph nodes identified. Spine: Alignment is normal. Mild to moderate degenerative changes are present. Lung apices: Large left hilar infiltrative mass measures approximately 4.1 x 6.2 cm. This abuts the left mainstem bronchus, left main pulmonary artery, and encases the left superior pulmonary vein. The left upper lobe bronchus is encased and appears at least partially occluded. This mildly prominent right hilar lymph node. There are multiple other spiculated pulmonary nodules throughout the visualized portions of the bilateral lungs concerning for additional sites of disease. CT ARTERIOGRAM: Extracranial Circulation: Aortic Arch: There is a normal branching pattern from the aortic arch. There is no significant stenosis in the proximal brachiocephalic vessels. Carotid Stenosis: Right Common: No significant stenosis. Right Internal Carotid Plaque: Mild plaque. Right Internal Carotid Stenosis (% by NASCET Criteria): 0 Left Common: No significant stenosis. Left Internal Carotid Plaque: No significant plaque formation. Left Internal Carotid Stenosis (% by NASCET Criteria): 0 Cervical Vertebral Arteries: Patency: Bilateral Dominance: Codominant Intracranial Circulation: Anterior Circulation: No large vessel occlusion or high-grade stenosis. No aneurysm or evidence of vascular malformation. Vertebrobasilar Circulation: No large vessel occlusion or high-grade stenosis. No aneurysm or evidence of vascular malformation. Political Cartoonist (topogram) images: No additional findings. IMPRESSION: 1. Large left hilar pulmonary mass as described, highly concerning for malignancy. 2. Numerous additional spiculated bilateral pulmonary nodules are concerning for metastatic disease. Recommend dedicated chest CT for complete evaluation. 3. Redemonstrated hypoattenuation and vasogenic edema centered in the left temporal lobe, with potential small enhancing focus within, concerning for intracranial metastatic disease. Brain MRI with and without contrast is recommended. 4. No cervical or intracranial large vessel occlusion or high-grade stenosis. No aneurysm, dissection, or evidence of vascular malformation. Arterial blood flow was measured to detect acute large vessel occlusion by computer aided detection software: Not Performed. Concordance between software and imaging review: Not Applicable. Breakfast Cook: EVGENY Transcribe Date/Time: Jul 19 2023 10:42P Dictated by : RUCHI ORTEGA MD This examination was interpreted and the report reviewed and electronically signed by: RUCHI ORTEGA MD on Jul 19 2023 11:07PM EST [id number] Normal [facility] ECG COMPLETEon 07-20-2023 ECG COMPLETE Ventricular Rate : 8 7 BPM Atrial Rate : 87 BPM P-R Interval : 160 ms QRS Duration : 82 ms Q-T Interval : 380 ms QTC Calculation(Bazett) : 457 ms Calculated P [place] : 77 degrees Calculated R [place] : -23 degrees Calculated T [place] : 13 degrees NORMAL SINUS RHYTHM POSSIBLE LEFT ATRIAL ENLARGEMENT SEPTAL INFARCT , AGE UNDETERMINED ABNORMAL ECG Confirmed by MD BATEMAN ALEXANDER ([id number]), news editor WALLACE BUITRAGO (1944) on 07/20/2023 7:33:48 AM NAME : JUANITA SEGURA PID : [id number] : 1970 Gender : Female Race : Unknown ORD : [id number] Procedure Date : Jul 19 2023 22:06:27 Edit Date : Jul 20 2023 07:33:49 Diagnosis: NORMAL SINUS RHYTHM POSSIBLE LEFT ATRIAL ENLARGEMENT SEPTAL INFARCT , AGE UNDETERMINED ABNORMAL ECG Confirmed by MD BATEMAN ALEXANDER ([id number]), news editor WALLACE BUITRAGO (1944) on 07/20/2023 7:33:48 AM Test Reason : Other - Specify Location : 1 : ER ED Overread By : MD BATEMAN ALEXANDER Edited By : WALLACE BUITRAGO Referred By : , Acquired by : DIONISIO [facility] ED NOTEon 07-20-2023 ED NOTE HNO ID: [id number] Author: Jose M Keita RN Service: ? Author Type: Registered Nurse Type: ED Notes Filed: 07/19/2023 11:24 PM Note Text: PT report given to Madeleine (RN) [facility] ED NOTE HNO ID: [id number] Author: Jose M Keita RN Service: ? Author Type: Registered Nurse Type: ED Notes Filed: 07/19/2023 11:22 PM Note Text: PT required suctioning to manage secretions and placed on NC @ 6L. [facility] ED NOTE HNO ID: [id number] Author: Jack Herndon DO Service: Emergency Medicine Author Type: Physician Type: ED Notes Filed: 07/19/2023 11:16 PM Note Text: Addendum note: I assisted with billet recorder for work-up of potential CVA as well as medications to assist with seizure control. This was done to afford him more direct time at bedside. [facility] ED NOTE HNO ID: [id number] Author: Jose M Keita RN Service: ? Author Type: Registered Nurse Type: ED Notes Filed: 07/19/2023 11:18 PM Note Text: Pt became unresponsive and began to seize. LIP to bedside [facility] ED NOTE HNO ID: [id number] Author: Jose M Keita RN Service: ? Author Type: Registered Nurse Type: ED Notes Filed: 07/19/2023 10:09 PM Note Text: PT DOWNGRADED TO STROKE PROTOCOL PER REX BATEMAN [facility] HCG Preg Ur Qlon 07-20-2023 HCG ( test) Ql (U) Negative Normal Negative [facility] Comment on above: Order Comment: Speci men Type: URINE SPECIMENOrdering Facility: [facility] Address: [address] [place] [address] Result Comment: This test is intended to aid in the early detection of . Very dilute urine samples, as indicated by a low specific gravity, may not contain outbound sales representative levels of hCG. This test detects intact hCG only. This test does not reliably detect hCG degradation products, including free-beta subunit and beta-core fragment. Therefore, this test may show reduced reactivity in urine after 8 weeks gestation. A number of conditions other than , including trophoblastic disease and certain non-trophoblastic neoplasms cause elevated levels of hCG. As with any assay employing mouse antibodies, the possibility exists for interference by human anti-mouse antibodies (HAMA) in the specimen. The test provides a presumptive diagnosis for . Performed By: #### 2 106-3 ####[facility] LABCLIA [id number] [place] [address] [place] HISTORY PHYSICALon 3 HISTORY PHYSICAL HNO ID: [id number] Author: Reid Redding MD Service: Neurosurgery Author Type: Physician Type: HANDP Filed: 07/20/2023 2:25 PM Note Text: NEUROSURGERY ADMISSION HISTORY AND PHYSICAL EXAMINATION PLEASE DO NOT REMOVE FROM THE CHART OR MODIFY PRINTED COPY Patient Name: Lashell Segura CHIEF COMPLAINT: Aphasia HPI: 53 year old left-handed female with PMH significant for current tobacco use, HLD, and depression who presented to an [facility] ED on 07/19 for aphasia. Patient was on the phone with her daughter around 1999 last night. By 2024, patient was noted to have sudden onset of expressive aphasia. Dysarthria also noted on assessment in the ED. At 2320, patient had an episode of right gaze deviation with head turn to the right followed by a GTC for which she received a loading dose of keppra and ativan. CXR at this time revealed a 3.6 x 4.4 cm REILLY lung mass concerning for malignancy. CTH completed in the ED shows a significant amount of vasogenic edema within the left temporal lobe with 2.4 mm MLS suspicious for metastatic disease. Patient was transferred to [facility] for neurosurgical evaluation. Denies recent episodes of chest pain/SOB, fever/chills, abdominal pain, nausea/emesis, blurry vision, seizures, traumas/falls, or other new neurologic deficits Anti-platelets/anti-co agulants: N/A PAST MEDICAL HISTORY: No past medical history on file. PAST SURGICAL HISTORY: No past surgical history on file. FAMILY HISTORY: No family history on file. SOCIAL HISTORY: Social History Tobacco Use Smoking status: Every Day Packs/day: 1.00 Years: 20.00 Additional pack years: 0.00 Total pack years: 20.00 Types: Cigarettes Substance Use Topics Alcohol use: Yes Comment: Occassionally Drug use: Not Currently MEDICATIONS: No prescriptions on file. No current facility-administered medications for this encounter. Facility-Administered Medications Ordered in Other Encounters Medication Dose Route Frequency iv contrast (radiology procedure) INTRAVENOUS DIRECTED PRN NaCl 0.9% iv flush bag 20 mL INTRAVENOUS PRN ALLERGIES: ALLERGIES Allergen Reactions Penicillins Unknown COMPLETE REVIEW OF SYSTEMS: See HPI PHYSICAL EXAM: Awake, confused Oriented x 2-3 with choice to location PERRL, EOMI Unable to assess visual adam Repetition 1/2 and naming 3/3 Face symmetric, tongue midline Speech fluent and appropriate BUE 5, no drift BLE 5 Sensation intact to light touch throughout CV: Regular rate/rhythm Chest: Comfortable on room air Abdomen: Soft, NT/ND DATA: Radiology: CT Brain (07/19/2023): 1. Vasogenic edema throughout the left temporal lobe with areas of apparent cortical thickening suspicious for underlying mass. MRI brain with and without contrast is recommended. 2. No definite evidence of acute territorial infarct. 3. No evidence of intracranial hemorrhage. CTA H/N (07/19/2023): 1. Large left hilar pulmonary mass as described, highly concerning for malignancy. 2. Numerous additional spiculated bilateral pulmonary nodules are concerning for metastatic disease. Recommend dedicated chest CT for complete evaluation. 3. Redemonstrated hypoattenuation and vasogenic edema centered in the left temporal lobe, with potential small enhancing focus within, concerning for intracranial metastatic disease. Brain MRI with and without contrast is recommended. 4. No cervical or intracranial large vessel occlusion or high-grade stenosis. No aneurysm, dissection, or evidence of vascular malformation. Laboratory: CBC, Coags, BMP, Mg, Phos Recent Labs 07/20/23 0318 07/19/23 2144 WBC 14.22* 16.30* HB 13.6 13.9 HCT 39.5 38.7 PLT 267 296 INR -- 1.0 APTT -- 28.3 NA -- 138 K -- 3.8 CHLOR -- 103 CO2 -- 24 BUN -- 20 CREAT -- 0.82 GLUC -- 107* CA -- 9.3 ASSESSMENT AND PLAN: 53 year old left-handed female with PMH significant for current tobacco use, HLD, and depression who presented to an OSH ED on 07/19 for aphasia followed by GTC. CXR at this time revealed a 3.6 x 4.4 cm REILLY lung mass concerning for malignancy. CTH completed in the ED shows a significant amount of vasogenic edema within the left temporal lobe with 2.4 mm MLS suspicious for metastatic disease. Patient was transferred to [facility] for neurosurgical evaluation. - admit to [facility] - admission labs including TANDS, COVID swab Neuro: - q 4h neuro checks - no indication for acute neurosurgical intervention at this time - Keppra 1 g BID - Hold on steroids - hold anti-platelet/anti-coa gulation - SCDs for DVT prophylaxis only BP control: - SBP < 160 mmHg Imaging: - CT C/A/P - MRI brain wwo, tumor protocol Please page NSGY with any exam change Above plan discussed with chief and (Staff) Dr. Redding. Amparo Arzola MD PGY-2, Neurological Surgery Pager: [phone] Neurosurgery wagon driller: [phone] 2:24 AM 07/20/23 Please page 24 (more content not included)... Normal [facility] Hepatic function 2000 panelo n 07-20-2023 Albumin [Mass/Vol] 4.6 g/dL Normal 3.9-4.9 [facility] Comment on above: Order Comment: Speci men Type: URINE SPECIMEN [facility] Address: [address] [place] [address] Performed By: #### 2 4356-8 #### [facility] CLIA [id number] [address] [place] [address] [place] ALP [Catalytic activity/Vol] 94 U/L Normal 34-123 [facility] Comment on above: Order Comment: Speci men Type: URINE SPECIMEN [facility] Address: [address] [place] [address] Performed By: #### 2 4356-8 #### [facility] CLIA [id number] [address] [place] [address] [place] ALT [Catalytic activity/Vol] 19 U/L Normal 7-38 [facility] Comment on above: Order Comment: Speci men Type: URINE SPECIMEN [facility] Address: [address] [place] [address] Performed By: #### 2 4356-8 #### [facility] CLIA [id number] [address] [place] [address] [place] AST [Catalytic activity/Vol] 21 U/L Normal 13-35 [facility] Comment on above: Order Comment: Speci men Type: URINE SPECIMEN [facility] Address: [address] [place] [address] Performed By: #### 2 4356-8 #### [facility] CLIA [id number] [address] [id number] [place] Bilirubin [Mass/Vol] 0.3 mg/dL Normal 0.2-1.3 [facility] Comment on above: Order Comment: Speci men Type: URINE SPECIMEN [facility] Address: [address] [place] [address] Performed By: #### 2 4356-8 #### [facility] CLIA [id number] [address] [id number] [address] [place] Bilirubin.conjugated [Mass/Vol] mg/dL Normal <0.2 [facility] Comment on above: Order Comment: Speci men Type: URINE SPECIMEN [facility]ing Facility[facility] Address: [place] [address] Performed By: #### 2 4356-8 #### [facility] CLIA [id number] [address] [place] [address] [place] Protein [Mass/Vol] 7.1 g/dL Normal 6.3-8.0 [facility] Comment on above: Order Comment: Speci men Type: URINE SPECIMEN [facility] Address: [place] [address] Performed By: #### 2 4356-8 #### [facility] CLIA [id number] [address] [place] [address] [place] MRI BRAIN WO/W IVCONon 07-20 MRI BRAIN WO/W IVCON * * *Final Report* * * DATE OF EXAM: Jul 20 2023 10:25AM Q 0295 - MRI BRAIN WO/W IVCON / PROCEDURE REASON: Brain/TUNNEL ELASTIC OPERATOR CHAINSTITCH neoplasm, monitor * * * * Physician Interpretation * * * * EXAMINATION: MRI BRAIN WO/W IVCON CLINICAL HISTORY: Brain/TUNNEL ELASTIC OPERATOR CHAINSTITCH neoplasm, under TECHNIQUE: Brain mass protocol MRI of the brain without and with contrast including diffusion images. MQ: MRBWOW_2 Contrast: 18 mL Dotarem IV COMPARISON: CT brain and CTA head and neck 07/19/2023 RESULT: Acute Change: There is no evidence of restricted diffusion to suggest an acute infarct. Hemorrhage: No evidence of prior parenchymal hemorrhage on the gradient echo images. Mass Lesion/ Mass Effect: Enhancing ovoid lesion in the mid left temporal lobe measures 0.8 x 1.0 x 1.0 cm in greatest AP by TV by CC dimension (series 16, image 66 with significant surrounding T2/FLAIR hyperintensity compatible with actually additional edema causing mild to moderate localized mass effect along the anterior temporal lobe, the left deep brain structures, and along the dorsal left periventricular white matter. No SWI or diffusion abnormality is noted within the mass. No significant midline shift. Chronic Change: Scattered punctate foci of increased T2 and FLAIR signal are noted in the supratentorial white matter which is a nonspecific finding, but likely represents minimal chronic microvascular ischemia. Other white matter changes as above. Parenchyma: No significant volume loss for age. The brain parenchyma is otherwise within normal limits of signal intensity and morphology. Ventricles: Normal caliber and morphology. Skull Base: Hypothalamic and pituitary region are grossly normal. Craniocervical junction is normal. No significant marrow replacement process. Cerebellar tonsils are normal size and position. Vasculature: Major intracranial arterial structures, and dural venous sinuses show typical flow void, suggesting patency by spin echo criteria. Other: Mild paranasal sinus mucosal thickening. Mastoid air cells are clear bilaterally. The orbits and extracranial soft tissues are unremarkable. 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 No associated restricted diffusion which would argue against abscess. No regional brain enhancement which would argue against a more generalized cerebritis. No evidence for acute ischemia or hemorrhage. Breakfast Cook: EVGENY Transcribe Date/Time: Jul 20 2023 10:29A Dictated by : GABRIELLE BATEMAN MD This examination was interpreted and the report reviewed and electronically signed by: CARLA ZHU MD on Jul 20 2023 10:51AM EST [id number] Normal [facility] Magnesium SerPl-mCncon 07-20 Magnesium [Mass/Vol] 2.1 mg/dL Normal 1.7-2.3 [facility] Comment on above: Order Comment: Speci men Type: URINE SPECIMEN [facility] Address: [address] [place] [address] Performed By: #### 2 4356-8 #### [facility] CLIA [id number] [address] [facility] [address] [place] NURSING PROGon 07-20-2023 NURSING PROG HNO ID: [id number] Author: Cate Elliott RN Service: Nursing Author Type: Registered Nurse Type: Nursing Progress Note Filed: 07/20/2023 9:24 PM Note Text: Sepsis Advisory was auto generated for heart rate of 101, BP of 107/55, WBC of 14.22. Primary team notified. Normal [facility] NURSING PROG HNO ID: [id number] Author: Suyapa Martin RN Service: ? Author Type: Registered Nurse Type: Nursing Progress Note Filed: 07/20/2023 8:26 PM Note Text: Patient caught smoking cigarette in her room this morning. Patient and her were told that this is not allowed. Patient stated that she needs to go outside to smoke. It was explained to patient that she cannot be allowed to go outside to smoke especially with history of recent seizure. Nicotine patch and gum ordered and given to patient. Patient left the floor multiple times today by wheelchair to smoke. Patient's family wheeled her downstairs and outside. Family was educated and told not to take patient outside again. Family continued to take patient outside. After multiple warnings patient and family was told if they do this again Clinic police will be called and family will not be allowed to come back. Patient says now she will comply and family states they will stop taking patient outside. Patient was given Ativan for anxiety. Patient currently asleep with EEG in place. at bedside. Normal [facility] PT panel Coag (PPP)on 2022 INR Coag (PPP) [Relative time] 1.0 {INR} Normal 0.9-1.3 [facility] Comment on above: Order Comment: Speci men Type: URINE SPECIMEN [facility] Address: [address] [place] [address] Result Comment: Fernanda min K Antagonist (VKA) Therapeutic Range: INR 2 to 3 (Target INR of 2.5) Note: For patients treated with VKA drugs, such as warfarin, the [employer] 2012 Guideline recommends a therapeutic INR range of 2 to 3 (target INR of 2.5). This recommendation includes high-risk patients with antiphospholipid syndrome with previous arterial or venous thromboembolism, current-generation mechanical or bioprosthetic aortic heart valve replacement. Note: Patients with mechanical aortic valve replacement and additional risk factors for thromboembolic events (atrial fibrillation, previous thromboembolism, LV dysfunction, hypercoagulable conditions) or an older generation mechanical AVR (i.e., ball in-Cage) or any mechanical MVR should have a INR therapeutic range of 2.5 to 3.5 (target INR of 3). Samson THURMAN, et al. Chest 2012, 141:7S-47S Jason RA, et al. JACC 2017, 70: 252-289 Performed By: #### 2 4356-8 #### [facility] CLIA [id number] [address] [place] [address] [place] PT Coag (PPP) [Time] 10.4 s Normal 9.7-13.0 [facility] Comment on above: Order Comment: Speci men Type: URINE SPECIMEN [facility] Address: [address] [place] [address] Performed By: #### 2 4356-8 #### [facility] CLIA [id number] [address] [place] [address] [place] Phosphate SerPl-mCncon 07-20 Phosphate [Mass/Vol] 2.2 mg/dL Low 2.7-4.8 [facility] Comment on above: Order Comment: Speci men Type: URINE SPECIMEN [facility] Address: [address] [place] [address] Performed By: #### 2 4356-8 #### [facility] CLIA [id number] [address] [place] [address] [place] STAPH AUREUS PCRon S. aureus and MRSA panel ANDREW+probe (Nose) Abnormal Negative [facility] Comment on above: Order Comment: Speci men Type: SWAB OF INTERNAL NOSE [facility] Address: [address] [place] [address] Result Comment: Posi tive for Staphylococcus aureus by PCR. Negative for MRSA by PCR Performed By: #### S APCR #### [facility] CLIA [id number] [address] [place] [address] [place] TYPE + SCREENon 07-20-2023 ABO A Normal [facility] Comment on above: Order Comment: Speci men Type: BLOOD SPECIMENOrdering Facility: [facility] Address: [address] [place] [address] Performed By: #### T SCR ####[facility] BANKCLIA [id number] [place] [address] [place] HISTORICAL AB SCR STATUS Negative Normal [facility] Comment on above: Order Comment: Speci men Type: BLOOD SPECIMENOrdering Facility: [facility] Address: [address] [place] [address] Performed By: #### T SCR ####[facility]LO[facility] BANKCLIA [id number] [place] [address] [place] Rh Nom (Bld) Negative Normal [facility] Comment on above: Order Comment: Speci men Type: BLOOD SPECIMENOrdering Facility: [facility] Address: [address] [place] [address] Performed By: #### T SCR ####[facility] BANKCLIA [id number] [place] [address] [place] TYPE AND SCREEN EXPIRATION 07/23/2023 23:59 Normal [facility] Comment on above: Order Comment: Speci men Type: BLOOD SPECIMENOrdering Facility: [facility] Address: [address] [place] [address] Performed By: #### T SCR ####[facility]LO[facility] BANKCLIA [id number] [place] [address] [place] Urinalysis complete panel (U )on 07-20-2023 Bacteria LM.HPF (Urine sed) [#/Area] Negative Normal Negative [facility] Comment on above: Order Comment: Speci men Type: URINE SPECIMEN [facility] Address: [address] [place] [address] Performed By: #### 2 4356-8 #### [facility] CLIA [id number] [address] [place] [address] [place] Bilirubin Ql (U) Negative Normal Negative [facility] Comment on above: Order Comment: Speci men Type: URINE SPECIMEN [facility] Address: [address] [place] [address] Performed By: #### 2 4356-8 #### [facility] CLIA [id number] [address] [place] [address] [place] Clarity (Unsp spec) Clear Normal Clear [facility] Comment on above: Order Comment: Speci men Type: URINE SPECIMEN [facility] Address: [address] [place] [address] Performed By: #### 2 4356-8 #### [facility] CLIA [id number] [address] [place] [address] [place] Color (U) Yellow Normal Yellow [facility] Comment on above: Order Comment: Speci men Type: URINE SPECIMEN [facility] Address: [address] [place] [address] Performed By: #### 2 4356-8 #### [facility] CLIA [id number] [address] [place] [address] [place] Epithelial cells LM.HPF (Urine sed) [#/Area] None Seen Normal [facility] Comment on above: Order Comment: Speci men Type: URINE SPECIMEN [facility] Address: [address] [place] [address] Performed By: #### 2 4356-8 #### [facility] CLIA [id number] [address] [place] [address] [place] Glucose Test strip (U) [Mass/Vol] Negative Normal Negative [facility] Comment on above: Order Comment: Speci men Type: URINE SPECIMEN [facility] Address: [address] [place] [address] Performed By: #### 2 4356-8 #### [facility] CLIA [id number] [address] [place] [address] [place] Hemoglobin Ql (U) Trace Abnormal Negative [facility] Comment on above: Order Comment: Speci men Type: URINE SPECIMEN [facility] Address: [address] [place] [address] Performed By: #### 2 4356-8 #### [facility] CLIA [id number] [address] [place] [address] [place] Hyaline casts (Urine sed) [#/Area] 0 /[LPF] Normal 0 /LPF [facility] Comment on above: Order Comment: Speci men Type: URINE SPECIMEN [facility] Address: [address] [place] [address] Performed By: #### 2 4356-8 #### [facility] CLIA [id number] [address] [place] [address] [place] Ketones Ql (U) Trace Abnormal Negative [facility] Comment on above: Order Comment: Speci men Type: URINE SPECIMEN [facility] Address: [address] [place] [address] Performed By: #### 2 4356-8 #### [facility] CLIA [id number] [address] [place] [address] [place] Leukocyte esterase Test strip Ql (U) Negative Normal Negative [facility] Comment on above: Order Comment: Speci men Type: URINE SPECIMEN [facility] Address: [address] [place] [address] Performed By: #### 2 4356-8 #### [facility] CLIA [id number] [address] [place] [address] [place] Nitrite Ql (U) Negative Normal Negative [facility] Comment on above: Order Comment: Speci men Type: URINE SPECIMEN [facility] Address: [address] [place] [address] Performed By: #### 2 4356-8 #### [facility] CLIA [id number] [address] [id number] [address] [place] pH (U) 6.5 [pH] Normal <8.5 [facility] Comment on above: Order Comment: Speci men Type: URINE SPECIMEN [facility] Address: [address] [place] [address] Performed By: #### 2 4356-8 #### [facility] CLIA [id number] [address] [place] [address] [place] Protein (U) [Mass/Vol] Negative Normal Negative [facility] Comment on above: Order Comment: Speci men Type: URINE SPECIMEN [facility] Address: [address] [place] [address] Performed By: #### 2 4356-8 #### [facility] CLIA [id number] [address] [place] [address] [place] RBC LM.HPF (Urine sed) [#/Area] 3-5 /HPF Abnormal 0-2 /HPF [facility] Comment on above: Order Comment: Speci men Type: URINE SPECIMEN [facility] Address: [address] [place] [address] Performed By: #### 2 4356-8 #### [facility] CLIA [id number] [address] [place] [address] [place] Specific gravity (U) [Rel density] 1.024 Normal 1.005-1.030 [facility] Comment on above: Order Comment: Speci men Type: URINE SPECIMEN [facility] Address: [address] [place] [address] Performed By: #### 2 4356-8 #### [facility] CLIA [id number] [address] [place] [address] [place] Urobilinogen Ql (U) 0.2 EU/dL Normal 0.2-1.0 EU/dL [facility] Comment on above: Order Comment: Speci men Type: URINE SPECIMEN [facility] Address: [address] [place] [address] Performed By: #### 2 4356-8 #### [facility] CLIA [id number] [address] [place] [address] [place] WBC LM.HPF (Urine sed) [#/Area] 0-5 /HPF Normal 0-5 /HPF [facility] Comment on above: Order Comment: Speci men Type: URINE SPECIMEN [facility] Address: [place] [address] Performed By: #### 2 4356-8 #### [facility] CLIA [id number] [address] [place] [address] [place] XR CHEST 1V FRONTAL PORTon 1 09-19-2022 XR CHEST 1V FRONTAL PORT * * *Final Report* * * DATE OF EXAM: Jul 19 2023 10:14PM MDX 5376 - XR CHEST 1V FRONTAL PORT / PROCEDURE REASON: Focal neuro deficit, new, fixed, or worsening, 4.5 to 24 hours, NIHSS < 6, strok * * * * Physician Interpretation * * * * EXAMINATION: CHEST RADIOGRAPH (PORTABLE SINGLE VIEW AP) Exam Date/Time: 07/19/2023 10:14 PM CLINICAL HISTORY: Focal neuro deficit, new, fixed, or worsening, 4.5 to 24 hours, NIHSS < 6, stroke suspected, Focal neuro deficit MQ: XCPR_5 Comparison: None available RESULT: Lines, tubes, and devices: None. Lungs and pleura: Hazy left perihilar parenchymal opacity Cardiomediastinal silhouette: Normal cardiomediastinal silhouette. Other: No acute bony abnormalities. IMPRESSION: Left perihilar parenchymal opacity possibly reflecting mass or infiltrate. Recommend further evaluation with contrasted chest CT. : Breakfast Cook: EVGENY Transcribe Date/Time: Jul 19 2023 10:16P Dictated by : MADAN BUSH MD This examination was interpreted and the report reviewed and electronically signed by: MADAN BUSH MD on Jul 19 2023 10:19PM EST [id number] Normal [facility] aPTT PPPon 07-20-2023 aPTT Coag (PPP) [Time] 27.1 s Normal 23.0-32.4 [facility] Comment on above: Order Comment: Speci men Type: URINE SPECIMEN [facility] Address: [place] [address] Performed By: #### 2 4356-8 #### [facility] CLIA [id number] [address] [facility] [id number] ALLIED HEALTHon 07-19-2023 ALLIED HEALTH HNO ID: [id number] Author: Tereza Benitez RT(Sherif) Service: Radiology Author Type: Technologist Type: Allied Health Filed: 07/19/2023 9:59 PM Note Text: Radiology Service Progress Note DATE OF SERVICE: July 19, 2023 TIME: 9:58 PM PATIENT IDENTITY VERIFICATION COMPLETED USING TWO (2) STANDARD IDENTIFIERS: Name and Date of confirmed by patient verbally and Name and Date of confirmed by identification band. FALL SCREENING: Has the patient had 2 falls in the last year or 1 fall with injury or currently using an Ambulatory Assistive Device (Walker, Cane, Wheelchair, Crutches, etc.)? Emergency Room Patient: Screened in ED PATIENT GENDER DATA: Female. status: : No status: NO. PATIENT RELEVANT IMPLANT DATA REVIEWED: Yes ALLERGIES: Reviewed and unchanged CONTRAST ALLERGY: NO. EXAM: CT -CONTRAST INDUCED NEPHROPATHY RISK FACTORS: Not applicable CREATININE: No results found for: CREAT, EGFROTH, EGFRAA P.O.C.T. RESULTS: POC done: Yes, See Lab Tab July 19, 2023 TREATMENT: N/A PERIPHERAL IV DATA: Inpatient - refer to LDA documentation RADIOLOGY DEPARTMENT: CT; Exam(s) Completed: Brain , CTA Brain , and CTA Neck SIGNATURE: RT Daniella(R) PATIENT NAME: Lashell Segura DATE: July 19, 2023 TIME: 9:58 PM Normal [facility] Basic metabolic 2000 panelon 07-19-2023 Anion gap [Moles/Vol] 11 mmol/L Normal 9-18 [facility] Comment on above: Order Comment: Speci men Type: BLOOD SPECIMENOrdering Facility: [facility] Address: [address] [place] [id number] Performed By: #### 2 4321-2, HSTNT ####[facility]ORY[facility]IA [id number] [place] [address] [place] Calcium [Mass/Vol] 9.3 mg/dL Normal 8.5-10.2 [facility] Comment on above: Order Comment: Speci men Type: BLOOD SPECIMENOrdering Facility: [facility] Address: [address] [place] [address] Performed By: #### 2 4321-2, HSTNT ####[facility]ORYCLIA [id number] [place] [address] [place] Chloride [Moles/Vol] 103 mmol/L Normal 97-105 [facility] Comment on above: Order Comment: Speci men Type: BLOOD SPECIMENOrdering Facility: [facility] Address: [address] [place] [address] Performed By: #### 2 4321-2, HSTNT ####[facility]ORYCLIA [id number] [address] [place] CO2 [Moles/Vol] 24 mmol/L Normal 22-30 [facility] Comment on above: Order Comment: Speci men Type: BLOOD SPECIMENOrdering Facility: [facility] Address: [address] [place] [address] Performed By: #### 2 4321-2, HSTNT ####[facility]ORYCL[facility] [id number] [address] [place] Creatinine [Mass/Vol] 0.82 mg/dL Normal 0.58-0.96 [facility] Comment on above: Order Comment: Speci men Type: BLOOD SPECIMENOrdering Facility: [facility] Address: [address] [place] [address] Performed By: #### 2 4321-2, HSTNT ####[facility]ATORYCLIA [id number] [address] Creatinine and Glomerular filtration rate.predicted panel (S/P/Bld) 85 mL/min/1.73m??? Normal >=60 [facility] Comment on above: Order Comment: Speci men Type: BLOOD SPECIMENOrdering Facility: [facility] Address: [address] [place] [address] Result Comment: Jina mated Glomerular Filtration Rate (eGFR) is calculated using the 2020 CKD-EPI creatinine equation. This equation utilizes serum creatinine, sex, and age as parameters. The creatinine assay has traceable calibration to isotope dilution-mass spectrometry. Refer to KDIGO guidelines for clinical interpretation. In patients with unstable renal function, e.g. those with acute kidney injury, the eGFR may not accurately reflect actual GFR. Performed By: #### 2 4321-2, HSTNT ####[facility]ORYCLIA [id number] [place] [address] [place] Glucose [Mass/Vol] 107 mg/dL High 74-99 [facility] Comment on above: Order Comment: Eris staton Type: BLOOD SPECIMENOrdering Facility: [facility] Address: [address] [place] [address] Result Comment: The [place] Diabetes Association (ADA) provides guidance for cutoff values for fasting glucose and random glucose. The ADA defines fasting as no caloric intake for at least 8 hours. Fasting plasma glucose results between 100 to 125 mg/dL indicate increased risk for diabetes (prediabetes). Fasting plasma glucose results greater than or equal to 126 mg/dL meet the criteria for diagnosis of diabetes. In the absence of unequivocal hyperglycemia, results should be confirmed by repeat testing. In a patient with classic symptoms of hyperglycemia or hyperglycemic crisis, random plasma glucose results greater than or equal to 200 mg/dL meet the criteria for diagnosis of diabetes. Reference: Standards of Medical Care in Diabetes 2016, [place] Diabetes Association. Diabetes Care. 2016.39(Suppl 1). Performed By: #### 2 4321-2, HSTNT ####[facility]ATORYCLIA [id number] [place] [address] [place] Potassium [Moles/Vol] 3.8 mmol/L Normal 3.7-5.1 [facility] Comment on above: Order Comment: Eris staton Type: BLOOD SPECIMENOrdering Facility: [facility] Address: [address] [place] [address] Performed By: #### 2 4321-2, HSTNT ####[facility]ATORYCLIA [id number] [address] Sodium [Moles/Vol] 138 mmol/L Normal 136-144 [facility] Comment on above: Order Comment: Speci men Type: BLOOD SPECIMENOrdering Facility: [facility] Address: [address] [place] [address] Performed By: #### 2 4321-2, HSTNT ####[facility]ATORYCLIA [id number] [address] [place] Urea nitrogen [Mass/Vol] 20 mg/dL Normal 7-21 [facility] Comment on above: Order Comment: Speci men Type: BLOOD SPECIMENOrdering Facility: [facility] Address: [address] [place] [address] Performed By: #### 2 4321-2, HSTNT ####[facility]ORYCLIA [id number] [address] [place] CBC panel Auto (Bld)on 07-19 Erythrocyte distribution width (RBC) [Ratio] 13.0 % Normal 11.5-15.0 [facility] Comment on above: Order Comment: Speci men Type: BLOOD SPECIMENOrdering Facility: [facility] Address: [address] [place] [address] Performed By: #### 5 8410-2 ####[facility]ATORYCLIA [id number] [address] [place] Hematocrit (Bld) [Volume fraction] 38.7 % Normal 36.0-46.0 [facility] Comment on above: Order Comment: Speci men Type: BLOOD SPECIMENOrdering Facility: [facility] Address: [address] [place] [address] Performed By: #### 5 8410-2 ####CAPPS LABORATORYCLIA [id number] [address] [place] Hemoglobin (Bld) [Mass/Vol] 13.9 g/dL Normal 11.5-15.5 [facility] Comment on above: Order Comment: Speci men Type: BLOOD SPECIMENOrdering Facility: [facility] Address: [address] [place] [address] Performed By: #### 5 8410-2 ####CAPPS LABORATORYCLIA [id number] [address] MCH (RBC) [Entitic mass] 32.8 pg Normal 26.0-34.0 [facility] Comment on above: Order Comment: Speci men Type: BLOOD SPECIMENOrdering Facility: [facility] Address: [address] [place] [address] Performed By: #### 5 8410-2 ####CAPPS LABORATORYCLIA [id number] [address] MCHC (RBC) [Mass/Vol] 35.9 g/dL Normal 30.5-36.0 [facility] Comment on above: Order Comment: Speci men Type: BLOOD SPECIMENOrdering Facility: [facility] Address: [address] [place] [address] Performed By: #### 5 8410-2 ####CAPPS LABORATORYCLIA [id number] [address] MCV (RBC) [Entitic vol] 91.3 fL Normal 80.0-100.0 [facility] Comment on above: Order Comment: Speci men Type: BLOOD SPECIMENOrdering Facility: [facility] Address: [address] [place] [address] Performed By: #### 5 8410-2 ####CAPPS LABORATORYCLIA [id number] [address] Nucleated RBC (Bld) [#/Vol] 10*3/uL Normal <0.01 [facility] Comment on above: Order Comment: Speci men Type: BLOOD SPECIMENOrdering Facility: [facility] Address: [address] [place] [address] Performed By: #### 5 8410-2 ####CAPPS LABORATORYCLIA [id number] [address] Platelet mean volume (Bld) [Entitic vol] 8.6 fL Low 9.0-12.7 [facility] Comment on above: Order Comment: Speci men Type: BLOOD SPECIMENOrdering Facility: [facility] Address: [address] [place] [address] Performed By: #### 5 8410-2 ####[facility] LABORATORYCLIA [id number] [place] [id number] [facility] [place] Platelets (Bld) [#/Vol] 296 10*3/uL Normal 150-400 [facility] Comment on above: Order Comment: Speci men Type: BLOOD SPECIMENOrdering Facility: [facility] Address: [address] [place] [address] Performed By: #### 5 8410-2 ####[facility] LABORATORYCLIA [id number] [address] [place] RBC (Bld) [#/Vol] 4.24 10*6/uL Normal 3.90-5.20 [facility] Comment on above: Order Comment: Speci men Type: BLOOD SPECIMENOrdering Facility: [facility] Address: [address] [place] [address] Performed By: #### 5 8410-2 ####PATTER[facility] LABORATORYCLIA [id number] [place] [id number] [facility] [place] WBC (Bld) [#/Vol] 16.30 10*3/uL High 3.70-11.00 [facility] Comment on above: Order Comment: Speci men Type: BLOOD SPECIMENOrdering Facility: [facility] Address: [address] [place] [address] Performed By: #### 5 8410-2 ####PATTERSON LABORATORYCLIA [id number] [place] [id number] [facility] CT BRAIN ATTACK WO IVCONon 1 09-18-2022 CT BRAIN ATTACK WO IVCON * * *Final Report* * * DATE OF EXAM: Jul 19 2023 9:47PM [facility] [place] [place] B[place]IN [place] WO IVCON / PROCEDURE REASON: Focal neuro deficit, new, fixed, or worsening, 4.5 to 24 hours, NIHSS 6 or great * * * * Physician Interpretation * * * * EXAMINATION: CT BRAIN ATTACK WO IVCON CLINICAL HISTORY: Aphasia Brain attack. TECHNIQUE: Routine CT of the brain without IV contrast. MQ: CTBA_4 CT Radiation dose: Integrated CT Dose-Length Product (DLP) for this visit = 748 mGy*cm CT Dose Reduction Employed: No dose reduction techniques were required COMPARISON: None. RESULT: Acute ischemic change: There is hypoattenuation centered in the left temporal lobe as described below, however this is not favored to represent acute ischemic infarct. ASPECT Score = 10 Hemorrhage: No evidence of acute intracranial hemorrhage. ECASS hemorrhagic transformation score: Not Applicable Mass Lesion / Mass Effect: There is predominantly vasogenic edema throughout the left temporal lobe. Additionally, the adjacent cortex appears thickened in some areas, and there may be an underlying lesion such as a mass. There is mild mass effect within this region, with local sulcal effacement, as well as trace rightward midline shift. Chronic change: None. Parenchyma: There is no significant volume loss. The brain parenchyma is otherwise within normal limits for age. Ventricles: Minimal effacement of the left lateral ventricle secondary to mass effect. Other: The visualized calvarium, skull base, orbits and extracranial soft tissues are normal. Political Cartoonist (topogram) images: No additional findings. IMPRESSION: 1. Vasogenic edema throughout the left temporal lobe with areas of apparent cortical thickening suspicious for underlying mass. MRI brain with and without contrast is recommended. 2. No definite evidence of acute territorial infarct. 3. No evidence of intracranial hemorrhage. CRITICAL TEST/RESULTS: Notification initiated at 9:[address] Bateman on 07/19/2023 at 9:57 PM . CR_1 Breakfast Cook: EVGENY Transcribe Date/Time: Jul 19 2023 9:49P Dictated by : RUCHI ORTEGA MD This examination was interpreted and the report reviewed and electronically signed by: RUCHI ORTEGA MD on Jul 19 2023 10:00PM EST [id number] CRITICAL!! Invalid Interpretation Code [facility] ED PROV NOTEon 07-19-2023 ED PROV NOTE HNO ID: [id number] Author: Kristy Bateman MD Service: ? Author Type: Physician Type: ED Provider Notes Filed: 07/20/2023 12:07 AM Note Text: ED Provider Note Patient Name: Juanita Segura : 1970 SERVICE DATE: 07/19/23 History Patient presents with: Mental Status Changes History provided by: Patient and parent interpreter for the deaf used: No CVA Location: At 825 the patient started getting aphasic because of word salad. She was apparently talking on her phone with her daughter for about 20 minutes starting at around 805 and suddenly at 825 this occurred Severity: Severe Onset quality: Sudden Timing: Constant Progression: Unchanged Chronicity: New Context: Sudden onset of aphasia. Relieved by: Nothing Worsened by: Nothing Associated symptoms: no abdominal pain, no chest pain, no congestion, no cough, no diarrhea, no ear pain, no fatigue, no fever, no headaches, no loss of consciousness, no myalgias, no nausea, no rash, no rhinorrhea, no shortness of breath, no sore throat, no vomiting and no wheezing No past medical history on file. No past surgical history on file. No family history on file. Social History Tobacco Use - Smoking status: Not on file - Smokeless tobacco: Not on file Substance and Sexual Activity - Alcohol use: Not on file - Drug use: Not on file - Sexual activity: Not on file ALLERGIES Allergen Reactions - Penicillins Unknown Review of Systems Constitutional: Negative for fatigue and fever. HENT: Negative for congestion, ear pain, rhinorrhea and sore throat. Respiratory: Negative for cough, shortness of breath and wheezing. Cardiovascular: Negative for chest pain. Gastrointestinal: Negative for abdominal pain, diarrhea, nausea and vomiting. Musculoskeletal: Negative for myalgias. Skin: Negative for rash. Neurological: Negative for loss of consciousness and headaches. Physical Exam Vitals BP Pulse Temp Temp src Resp SpO2 Weight Height 07/19/23213707/19/23213707/19/23213707/19/23213707/19/23213707/19/23213707/19/23 2140 -- 154/93 90 36.5 ?C (97.7 ?F) Oral 18 96 % 88 kg (194 lb 0.1 oz) Physical Exam Vitals and nursing note reviewed. Constitutional: Appearance: She is well-developed. HENT: Head: Normocephalic and atraumatic. Right Ear: External ear normal. Left Ear: External ear normal. Nose: Nose normal. Eyes: General: Lids are normal. Lids are everted, no foreign bodies appreciated. Conjunctiva/sclera: Conjunctivae normal. Pupils: Pupils are equal, round, and reactive to light. Neck: Trachea: Trachea normal. Cardiovascular: Rate and Rhythm: Normal rate and regular rhythm. Heart sounds: Normal heart sounds. Pulmonary: Effort: Pulmonary effort is normal. Breath sounds: Normal breath sounds. Abdominal: General: Bowel sounds are normal. There is no distension. Palpations: Abdomen is soft. Musculoskeletal: General: Normal range of motion. Right shoulder: Normal. Left shoulder: Normal. Cervical back: Normal range of motion and neck supple. No deformity. Thoracic back: No deformity. Right ankle: Normal. Left ankle: Normal. Lymphadenopathy: Cervical: No cervical adenopathy. Skin: General: Skin is warm and dry. Neurological: Mental Status: She is alert and oriented to person, place, and time. GCS: GCS eye subscore is 4. GCS verbal subscore is 5. GCS motor subscore is 6. Cranial Nerves: Dysarthria present. No cranial nerve deficit. Sensory: No sensory deficit. Motor: No weakness. Coordination: Coordination normal. Deep Tendon Reflexes: Reflexes are normal and symmetric. Psychiatric: Attention and Perception: Attention and perception normal. Diagnostic Testing ED Labs Ordered and Reviewed GLUCOSE, BLOOD (POC) - Abnormal; Notable for the following components: Result Value Ref Range Glucose, Point of Care 109 (*) 74 - 99 mg/dL All other components within normal limits GLUCOSE - ED(POC) CBC BASIC METABOLIC PNL ACTIVATED PTT PROTHROMBIN TIME/PT HIGH SENSITIVITY TROPONIN T Procedures ED Course / Clinical Impression Clinical Impressions as of 07/19/23 2324 Aphasia Brain tumor (HCC) Lung tumor Seizure (HCC) MDM / Disposition / Plan 53-year-old female reportedly healthy no history of any injuries no history of any GI bleeds rectal bleeds, not on blood thinners does not sound like she takes any medicines regularly was talking with her daughter starting around 805 is about a 20-minute conversation the daughter who they identified is a nurse says at 825 she started having aphasia. The patient does not answer questions appropriately she is not really following two-step commands. She is definitely confused and disoriented. No chest pain no shortness of breath no fevers or chills Physical exam Vital signs are normal 154/93, otherwise vitals are unremarkable cardiac regular rate rhythm Pulmonary exam clear (more content not included)... Normal [facility] HIGH SENSITIVITY TROPONIN To n 07-19-2023 Troponin T.cardiac High sensitivity method [Mass/Vol] 7 ng/L Normal <12 [facility] Comment on above: Order Comment: Eris staton Type: BLOOD SPECIMENOrdering Facility: [facility] Address: [address] [place] [address] Result Comment: When assessing risk for acute coronary syndromes: In patients undergoing blood draw greater than or equal to 2 hours from symptom onset, with history of very low to moderate risk and non-ischemic ECG, an initial hs-Troponin T less than 12 ng/L AND a 1 hour delta hs-Troponin T less than 3 ng/L should be considered very low risk for 30 day MACE. Performed By: #### 2 4321-2, HSTNT ####CAPPS LABORATORYCLIA [id number] [place] [id number] [address] [place] OF [facility] PT panel Coag (PPP)on 2022 INR Coag (PPP) [Relative time] 1.0 {INR} Normal 0.9-1.3 [facility] Comment on above: Order Comment: Eris staton Type: BLOOD SPECIMENOrdering Facility: [facility] Address: [address] [place] [address] Result Comment: Fernanda min K Antagonist (VKA) Therapeutic Range: INR 2 to 3 (Target INR of 2.5) Note: For patients treated with VKA drugs, such as warfarin, the [employer] 2012 Guideline recommends a therapeutic INR range of 2 to 3 (target INR of 2.5). This recommendation includes high-risk patients with antiphospholipid syndrome with previous arterial or venous thromboembolism, current-generation mechanical or bioprosthetic aortic heart valve replacement. Note: Patients with mechanical aortic valve replacement and additional risk factors for thromboembolic events (atrial fibrillation, previous thromboembolism, LV dysfunction, hypercoagulable conditions) or an older generation mechanical AVR (i.e., ball in-Cage) or any mechanical MVR should have a INR therapeutic range of 2.5 to 3.5 (target INR of 3). Samson GH, et al. Chest 2012, 141:7S-47S Jason RA, et al. [facility] 2017, 70: 252-289 Performed By: #### 1 4979-9, 70782-4 ####CAPPS LABORATORYCLIA [id number] [address] [place] PT Coag (PPP) [Time] 10.4 s Normal 9.7-13.0 [facility] Comment on above: Order Comment: Speci men Type: BLOOD SPECIMENOrdering Facility: [facility] Address: [place] [id number] Performed By: #### 1 4979-9, 38728-2 ####CAPPS LABORATORYCLIA [id number] [place] [address] [address] [place] aPTT PPPon 07-19-2023 aPTT Coag (PPP) [Time] 28.3 s Normal 23.0-32.4 [facility] Comment on above: Order Comment: Speci men Type: BLOOD SPECIMENOrdering Facility: [facility] Address: [place] [address] Performed By: #### 1 4979-9, 02565-2 ####[facility]TER[facility] LABORATORYCLIA [id number] [place] [address] [address] [place] [facility] Absolute lymphocyte countOrd ered By: Martine Marrufo on 05-05-2023 Lymphocytes Auto (Unsp spec) [#/Vol] 3.56 10*3/uL 0.83-4.51 [facility] Basophil percentageOrdered B y: Martine Marrufo on 05-05-2023 Basophils/100 WBC (Bld) 0.8 % 0-1 [facility] Bilirubin [Mass/Vol] 0.30 mg/dL 0.20-1.00 [facility] Comment on above: For patients on eltr ombopag therapy, use of Dimension [place] TBIL is not recommended. Chloride [Moles/Vol] 107 mmol/L 98-107 [facility] Cholesterol [Mass/Vol] 253 mg/dL <200 [facility] Comment on above: <200 mg/dL Desirable 200-240 mg/dL Borderline >240 mg/dL High Risk Eosinophils/100 WBC (Bld) 3.3 % 0-5 [facility] Glucose [Mass/Vol] 94 mg/dL 74-106 [facility] Neutrophils (Bld) [#/Vol] 5.0 10*3/uL 2.0-7.7 [facility] Neutrophils/100 WBC (Bld) 51.2 % 47-70 [facility] Potassium [Moles/Vol] 4.1 mmol/L 3.5-5.1 [facility] Protein [Mass/Vol] 7.8 g/dL 6.4-8.2 [facility] Sodium [Moles/Vol] 140 mmol/L 136-145 [facility] Triglyceride [Mass/Vol] 221 mg/dL <199 [facility] Comment on above: The drugs N-Acetylcy steine and Metamizole may falsely depress this assay.Serum Triglycerides Reference Interval Normal <150 mg/dL Borderline high 150 - 199 mg/dL High 200 - 499 mg/dL Very High > or = 500 mg/dL WBC (Bld) [#/Vol] 9.8 10*3/uL 4.4-11.0 [facility] Blood erythrocytes count (nu mber/volume)Ordered By: Martine Marrufo on 05-05-2023 RBC (Bld) [#/Vol] 4.58 10*6/uL 4.2-5.4 [facility] Blood hemoglobin measurement (mass/volume)Ordered By: Martine Marrufo on 05-05-2023 Hemoglobin (Bld) [Mass/Vol] 14.1 g/dL 12.0-15.0 [facility] Blood lymphocytes/100 leukoc ytesOrdered By: Martine Marrufo on 05-05-2023 Lymphocytes/100 WBC (Bld) 36.3 % 19-41 [facility] Blood monocytes/100 leukocyt esOrdered By: Martine Marrufo on 05-05-2023 Monocytes/100 WBC (Bld) 7.8 % 0-10 [facility] Blood platelet mean volumeOr dered By: Martine Marrufo on 05-05-2023 Platelet mean volume (Bld) [Entitic vol] 9.3 fL 6.2-12.0 [facility] CBC W/Diff, Automatedon 04-25 Absolute Lymph 3.56 X10 3/uL Normal 0.83-4.51 [facility] Comment on above: Performed By: #### L 500.4050, L500.4100, L100.0100 #### [facility] [place], [address] Absolute Neut 5.0 X10 3/uL Normal 2.0-7.7 [facility] Comment on above: Performed By: #### L 500.4050, L500.4100, L100.0100 #### [facility] [address] [place], [address] Basophils/100 WBC (Bld) 0.8 % Normal 0-1 [facility] Comment on above: Performed By: #### L 500.4050, L500.4100, L100.0100 #### [facility] [address] [place], [address] Eosinophils/100 WBC (Bld) 3.3 % Normal 0-5 [facility] Comment on above: Performed By: #### L 500.4050, L500.4100, L100.0100 #### [facility] [address] [place], [address] Erythrocyte distribution width (RBC) [Ratio] 13.2 % Normal 11.6-14.6 [facility] Comment on above: Performed By: #### L 500.4050, L500.4100, L100.0100 #### [facility] [address] [place], [address] Hematocrit (Bld) [Volume fraction] 42.6 % Normal 37-47 [facility] Comment on above: Performed By: #### L 500.4050, L500.4100, L100.0100 #### [facility] [address] [place], [address] Hemoglobin (Bld) [Mass/Vol] 14.1 g/dL Normal 12.0-15.0 [facility] Comment on above: Performed By: #### L 500.4050, L500.4100, L100.0100 #### [facility] [address] [place], [address] IG% 0.600 Normal 0.0-0.9 [facility] Comment on above: Result Comment: IG% - Immature Granulocytes (promyelocytes, myelocytes and metamyelocytes) > 1% indicates that a LEFT SHIFT is Present. Performed By: #### L 500.4050, L500.4100, L100.0100 #### [facility] [address] [place], [address] Lymphocytes/100 WBC (Bld) 36.3 % Normal 19-41 [facility] Comment on above: Performed By: #### L 500.4050, L500.4100, L100.0100 #### [facility] [address] [place], [address] MCH (RBC) [Entitic mass] 30.8 pg Normal 27.0-32.0 [facility] Comment on above: Performed By: #### L 500.4050, L500.4100, L100.0100 #### [facility] [address] [place], [address] MCHC (RBC) [Mass/Vol] 33.1 g/dL Normal 32-36 [facility] Comment on above: Performed By: #### L 500.4050, L500.4100, L100.0100 #### [facility] [address] [place], [address] MCV (RBC) [Entitic vol] 93.0 fL Normal 81-99 [facility] Comment on above: Performed By: #### L 500.4050, L500.4100, L100.0100 #### [facility] [address] [place], [address] Monocytes/100 WBC (Bld) 7.8 % Normal 0-10 [facility] Comment on above: Performed By: #### L 500.4050, L500.4100, L100.0100 #### [facility] [address] [place], [address] Neutrophils/100 WBC (Bld) 51.2 % Normal 47-70 [facility] Comment on above: Performed By: #### L 500.4050, L500.4100, L100.0100 #### [facility] [address] [place], [address] Nucleated RBC (Bld) [#/Vol] 0 10*3/uL Normal 0-5 [facility] Comment on above: Performed By: #### L 500.4050, L500.4100, L100.0100 #### [facility] [address] [place], [address] Platelet mean volume (Bld) [Entitic vol] 9.3 fL Normal 6.2-12.0 [facility] Comment on above: Performed By: #### L 500.4050, L500.4100, L100.0100 #### [facility] [address] [place], [address] Platelets (Bld) [#/Vol] 326 10*3/uL Normal 150-450 [facility] Comment on above: Performed By: #### L 500.4050, L500.4100, L100.0100 #### [facility] [address] [place], [address] RBC (Bld) [#/Vol] 4.58 10*6/uL Normal 4.2-5.4 [facility] Comment on above: Performed By: #### L 500.4050, L500.4100, L100.0100 #### [facility] [address] [place], [address] RDW SD 44.6 fl High 35.1-43.9 [facility] Comment on above: Performed By: #### L 500.4050, L500.4100, L100.0100 #### [facility] [address] [place], [address] WBC (Bld) [#/Vol] 9.8 10*3/uL Normal 4.4-11.0 [facility] Comment on above: Performed By: #### L 500.4050, L500.4100, L100.0100 #### [facility] [address] [place], [address] Comprehensive Metabolic Prof ilon 05-05-2023 Albumin [Mass/Vol] 4.2 g/dL Normal 3.2-5.0 [facility] Comment on above: Performed By: #### L 500.4050, L500.4100, L100.0100 #### [facility] [address] [place], [address] Albumin/Globulin [Mass ratio] 1.2 {ratio} Normal 0.9-2.4 [facility] Comment on above: Performed By: #### L 500.4050, L500.4100, L100.0100 #### [facility] [address] [place], [address] ALK P 105 U/L Normal 45-117 [facility] Comment on above: Performed By: #### L 500.4050, L500.4100, L100.0100 #### [facility] [address] [place], [address] ALT [Catalytic activity/Vol] 40 U/L Normal 13-56 [facility] Comment on above: Performed By: #### L 500.4050, L500.4100, L100.0100 #### [facility] [address] [place], [address] AST [Catalytic activity/Vol] 21 U/L Normal 15-37 [facility] Comment on above: Performed By: #### L 500.4050, L500.4100, L100.0100 #### [facility] [address] [place], [address] Bilirubin [Mass/Vol] 0.30 mg/dL Normal 0.20-1.00 [facility] Comment on above: Result Comment: For patients on eltrombopag therapy, use of Dim[place] TBIL is not recommended. Performed By: #### L 500.4050, L500.4100, L100.0100 #### [facility] [address] [place], [address] BUN/CRE 18.6 RATIO Normal 10-20 [facility] Comment on above: Performed By: #### L 500.4050, L500.4100, L100.0100 #### [facility] [address] [place], [address] CA,Total 9.3 mg/dL Normal 8.5-10.1 [facility] Comment on above: Performed By: #### L 500.4050, L500.4100, L100.0100 #### [facility] [address] [place], [address] Chloride [Moles/Vol] 107 mmol/L Normal 98-107 [facility] Comment on above: Performed By: #### L 500.4050, L500.4100, L100.0100 #### [facility] [address] [place], [address] CO2 [Moles/Vol] 28.0 mmol/L Normal 21.0-32.0 [facility] Comment on above: Performed By: #### L 500.4050, L500.4100, L100.0100 #### [facility] [address] [place], [address] Creatinine [Mass/Vol] 0.81 mg/dL Normal 0.55-1.02 [facility] Comment on above: Result Comment: The validity of the calculated GFR GFRAA in patients over 70 years has not been determined. Clinical correlation is essential. Performed By: #### L 500.4050, L500.4100, L100.0100 #### [facility] [address] [place], [address] EST GFR - AA 95 mL/min Normal >60 [facility] Comment on above: Result Comment: Afri can English GFR Calc Performed By: #### L 500.4050, L500.4100, L100.0100 #### [facility] [address] [place], [address] GAP 5 Normal 5-15 [facility] Comment on above: Performed By: #### L 500.4050, L500.4100, L100.0100 #### [facility] [address] [place], [address] GFR/1.73 sq M.predicted among non-blacks MDRD (S/P/Bld) [Vol rate/Area] 79 mL/min/{1.73_m2} Normal >60 [facility] Comment on above: Result Comment: Non- GFR Calc Performed By: #### L 500.4050, L500.4100, L100.0100 #### [facility] [address] [place], [address] Globulin (S) [Mass/Vol] 3.6 g/dL Normal 2.2-4.2 [facility] Comment on above: Performed By: #### L 500.4050, L500.4100, L100.0100 #### [facility] [address] [place], [address] Glucose [Mass/Vol] 94 mg/dL Normal 74-106 [facility] Comment on above: Performed By: #### L 500.4050, L500.4100, L100.0100 #### [facility] [address] [place], [address] Potassium [Moles/Vol] 4.1 mmol/L Normal 3.5-5.1 [facility] Comment on above: Performed By: #### L 500.4050, L500.4100, L100.0100 #### [facility] [address] [place], [address] Sodium [Moles/Vol] 140 mmol/L Normal 136-145 [facility] Comment on above: Performed By: #### L 500.4050, L500.4100, L100.0100 #### [facility] [address] [place], [address] T PROT 7.8 g/dL Normal 6.4-8.2 [facility] Comment on above: Performed By: #### L 500.4050, L500.4100, L100.0100 #### [facility] [address] [place], [address] Urea nitrogen [Mass/Vol] 15 mg/dL Normal 7-18 [facility] Comment on above: Performed By: #### L 500.4050, L500.4100, L100.0100 #### [facility] [address] [place], [address] Determination of erythrocyte mean corpuscular volume (MCV)Ordered By: Martine Marrufo on 05-05-2023 MCV (RBC) [Entitic vol] 93.0 fL 81-99 [facility] Hematocrit Auto (Bld) [Volum e fraction]Ordered By: Martine Marrufo on 05-05-2023 Hematocrit (Bld) [Volume fraction] 42.6 % 37-47 [facility] - Chemistry and C hemistry - challengeOrdered By: Martine Marrufo on 05-05-2023 ALP [Catalytic activity/Vol] 105 U/L 45-117 [facility] ALT [Catalytic activity/Vol] 40 U/L 13-56 [facility] CO2 [Moles/Vol] 28.0 mmol/L 21.0-32.0 [facility] Globulin (S) [Mass/Vol] 3.6 g/dL 2.2-4.2 [facility] Urea nitrogen/Creatinine [Mass ratio] 18.6 mg/mg 10-20 [facility] - Hematology and Cell countsOrdered By: Martine Marrufo on 05-05-2023 Erythrocyte distribution width (RBC) [Entitic vol] 44.6 fL 35.1-43.9 [facility] Erythrocyte distribution width (RBC) [Ratio] 13.2 % 11.6-14.6 [facility] Immature granulocytes/100 WBC (Bld) 0.600 % 0.0-0.9 [facility] Comment on above: IG% - Immature Granu locytes (promyelocytes, myelocytes and metamyelocytes) > 1% indicates that a LEFT SHIFT is Present. MCH (RBC) [Entitic mass] 30.8 pg 27.0-32.0 [facility] Nucleated RBC/100 WBC (Bld) [Ratio] 0 % 0-5 [facility] Lipid Profileon 05-05-2023 Cholesterol [Mass/Vol] 253 mg/dL High 200 [facility] Comment on above: Result Comment: <200 mg/dL Desirable 200-240 mg/dL Borderline >240 mg/dL High Risk Performed By: #### L 500.4050, L500.4100, L100.0100 #### [facility] [address] [place], [address] Cholesterol in HDL [Mass/Vol] 41 mg/dL Normal [facility] Comment on above: Result Comment: The drugs N-Acetylcysteine and Metamizole may falsely depress this assay. Reference Range HDL <40 mg/dL Low HDL Cholesterol HDL >or= 60 mg/dL High HDL Cholesterol Performed By: #### L 500.4050, L500.4100, L100.0100 #### [facility] [address] [place], [address] Cholesterol in LDL [Mass/Vol] 168 mg/dL High 0-130 [facility] Comment on above: Performed By: #### L [id number], L500.4100, L100.0100 #### [facility] [address] [place], [address] Cholesterol in VLDL [Mass/Vol] 44 mg/dL High 5-40 [facility] Comment on above: Performed By: #### L [id number], L500.4100, L100.0100 #### [facility] [address] [facility] [place], [address] Triglyceride [Mass/Vol] 221 mg/dL High [facility] Comment on above: Result Comment: The drugs N-Acetylcysteine and Metamizole may falsely depress this assay. Serum Triglycerides Reference Interval Normal <150 mg/dL Borderline high 150 - 199 mg/dL High 200 - 499 mg/dL Very High > or = 500 mg/dL Performed By: #### L 500.4050, L500.4100, L100.0100 #### [facility] [address] [facility] [facility] [address] [place], [place], [id number] MCHC Auto (RBC) [Mass/Vol]Or dered By: Martine Marrufo on 05-05-2023 MCHC (RBC) [Mass/Vol] 33.1 g/dL 32-36 [facility] No Panel InformationOrdered By: Martine Marrufo on 05-05-2023 Estimated GFR (MDRD) Amer 95 mL/min >60 [facility] Comment on above: GFR Calc Estimated GFR (MDRD) Non-Af Amer 79 mL/min >60 [facility] Comment on above: Non- GFR Calc Platelets bldOrdered By: Vane Marrufo on 05-05-2023 Platelets (Bld) [#/Vol] 326 10*3/uL 150-450 [facility] Serum or plasma albumin chris urement (mass/volume)Ordered By: Martine Marrufo on 05-05-2023 Albumin [Mass/Vol] 4.2 g/dL 3.2-5.0 [facility] Serum or plasma albumin/glob ulin mass ratioOrdered By: Martine Marrufo on 05-05-2023 Albumin/Globulin [Mass ratio] 1.2 {ratio} 0.9-2.4 [facility] Serum or plasma calcium chris urement (mass/volume)Ordered By: Martine Marrufo on 05-05-2023 Calcium [Mass/Vol] 9.3 mg/dL 8.5-10.1 [facility] Serum or plasma cholesterol in HDL measurement (mass/volume)Ordered By: Martine Marrufo on 05-05-2023 Cholesterol in HDL [Mass/Vol] 41 mg/dL >40 [facility] Comment on above: The drugs N-Acetylcy steine and Metamizole may falsely depress this assay. Reference Range HDL <40 mg/dL Low HDL Cholesterol HDL >or= 60 mg/dL High HDL Cholesterol Serum or plasma cholesterol in VLDL measurement (mass/volume)Ordered By: Martine Marrufo on 05-05-2023 Cholesterol in VLDL [Mass/Vol] 44 mg/dL 5-40 [facility] Serum or plasma creatinine m easurement (mass/volume)Ordered By: Martine Marrufo on 05-05-2023 Creatinine [Mass/Vol] 0.81 mg/dL 0.55-1.02 [facility] Comment on above: The validity of the calculated GFR & GFRAA in patients over 70 years has not been determined. Clinical correlation is essential. Serum or plasma low density lipoprotein (LDL) cholesterol measurement (mass/volume)Ordered By: Martine Marrufo on 05-05-2023 Cholesterol in LDL [Mass/Vol] 168 mg/dL 0-130 [facility] Serum or plasma urea nitroge n measurement (mass/volume)Ordered By: Martine Marrufo on 05-05-2023 Urea nitrogen [Mass/Vol] 15 mg/dL 7-18 [facility] Thin prep Papanicolaou smear with manual screeningOrdered By: Martine Marrufo on 05-05-2023 Thin prep Papanicolaou smear with manual screening 21 U/L 15-37 [facility] Thin prep Papanicolaou smear with manual screening 5 5-15 [facility] Absolute lymphocyte counton 04-23-2022 Lymphocytes Auto (Unsp spec) [#/Vol] 4.16 10*3/uL 0.83-4.51 [facility] Work Phone: Basophil percentageon 2021 Basophils/100 WBC (Bld) 0.4 % 0-1 [facility] Work Phone: Bilirubin [Mass/Vol] 0.30 mg/dL 0.20-1.00 [facility] Work Phone: Comment on above: For patients on eltr ombopag therapy, use of [employer] [place] TBIL is not recommended. Chloride [Moles/Vol] 108 mmol/L 98-107 [facility] Work Phone: Cholesterol [Mass/Vol] 231 mg/dL <200 [facility] Work Phone: Comment on above: <200 mg/dL Desirable 200-240 mg/dL Borderline >240 mg/dL High Risk Eosinophils/100 WBC (Bld) 2.7 % 0-5 [facility] Work Phone: Glucose [Mass/Vol] 87 mg/dL 74-106 [facility] Work Phone: Neutrophils (Bld) [#/Vol] 5.5 10*3/uL 2.0-7.7 [facility] Work Phone: Neutrophils/100 WBC (Bld) 51.6 % 47-70 [facility] Work Phone: Potassium [Moles/Vol] 3.6 mmol/L 3.5-5.1 [facility] Work Phone: Protein [Mass/Vol] 7.5 g/dL 6.4-8.2 [facility] Work Phone: Sodium [Moles/Vol] 140 mmol/L 136-145 [facility] Work Phone: Triglyceride [Mass/Vol] 208 mg/dL <199 [facility] Work Phone: Comment on above: The drugs N-Acetylcy steine and Metamizole may falsely depress this assay.Serum Triglycerides Reference Interval Normal <150 mg/dL Borderline high 150 - 199 mg/dL High 200 - 499 mg/dL Very High > or = 500 mg/dL WBC (Bld) [#/Vol] 10.7 10*3/uL 4.4-11.0 [facility] Work Phone: Blood erythrocytes count (nu mber/volume)on 04-23-2022 RBC (Bld) [#/Vol] 4.35 10*6/uL 4.2-5.4 [facility] Work Phone: Blood hemoglobin measurement (mass/volume)on 04-23-2022 Hemoglobin (Bld) [Mass/Vol] 13.8 g/dL 12.0-15.0 [facility] Work Phone: [phone] Blood lymphocytes/100 leukoc yteson 04-23-2022 Lymphocytes/100 WBC (Bld) 39.1 % 19-41 [facility] Work Phone: [phone] Blood monocytes/100 leukocyt eson 04-23-2022 Monocytes/100 WBC (Bld) 5.7 % 0-10 [facility] Work Phone: [phone] Blood platelet mean volumeon 04-23-2022 Platelet mean volume (Bld) [Entitic vol] 9.5 fL 6.2-12.0 [facility] Work Phone: [phone] Determination of erythrocyte mean corpuscular volume (MCV)on 04-23-2022 MCV (RBC) [Entitic vol] 91.3 fL 81-99 [facility] Work Phone: [phone] Hematocrit Auto (Bld) [Volum e fraction]on 04-23-2022 Hematocrit (Bld) [Volume fraction] 39.7 % 37-47 [facility] Work Phone: Laboratory - Chemistry and C hemistry - challengeon 04-23-2022 ALP [Catalytic activity/Vol] 70 U/L 45-117 [facility] Work Phone: [phone] ALT [Catalytic activity/Vol] 35 U/L 13-56 [facility] Work Phone: [phone] CO2 [Moles/Vol] 24.0 mmol/L 21.0-32.0 [facility] Work Phone: [phone] Globulin (S) [Mass/Vol] 3.4 g/dL 2.2-4.2 [facility] Work Phone: [phone] Urea nitrogen/Creatinine [Mass ratio] 21.3 mg/mg 10-20 [facility] Work Phone: [phone] Laboratory - Hematology and Cell countson 04-23-2022 Erythrocyte distribution width (RBC) [Entitic vol] 43.7 fL 35.1-43.9 [facility] Work Phone: [phone] Erythrocyte distribution width (RBC) [Ratio] 13.0 % 11.6-14.6 [facility] Work Phone: [phone] Immature granulocytes/100 WBC (Bld) 0.500 % 0.0-0.9 [facility] Work Phone: [phone] Comment on above: IG% - Immature Granu locytes (promyelocytes, myelocytes and metamyelocytes) > 1% indicates that a LEFT SHIFT is Present. MCH (RBC) [Entitic mass] 31.7 pg 27.0-32.0 [facility] Work Phone: [phone] Nucleated RBC/100 WBC (Bld) [Ratio] 0 % 0-5 [facility] Work Phone: [phone] MCHC Auto (RBC) [Mass/Vol]on 04-23-2022 MCHC (RBC) [Mass/Vol] 34.8 g/dL 32-36 [facility] Work Phone: [phone] Panel Informationon 04-23 Estimated GFR (MDRD) Amer 103 mL/min >60 [facility] Work Phone: [phone] Comment on above: GFR Calc Estimated GFR (MDRD) Non-Af Amer 86 mL/min >60 [facility] Work Phone: [phone] Comment on above: Non- GFR Calc Platelets bldon 04-23-2022 Platelets (Bld) [#/Vol] 287 10*3/uL 150-450 [facility] Work Phone: [phone] Serum or plasma albumin chris urement (mass/volume)on 04-23-2022 Albumin [Mass/Vol] 4.1 g/dL 3.2-5.0 [facility] Work Phone: [phone] Serum or plasma albumin/glob ulin mass ratioon 04-23-2022 Albumin/Globulin [Mass ratio] 1.2 {ratio} 0.9-2.4 [facility] Work Phone: Serum or plasma calcium chris urement (mass/volume)on 04-23-2022 Calcium [Mass/Vol] 9.1 mg/dL 8.5-10.1 [facility] Work Phone: Serum or plasma cholesterol in HDL measurement (mass/volume)on 04-23-2022 Cholesterol in HDL [Mass/Vol] 43 mg/dL >40 [facility] Work Phone: Comment on above: The drugs N-Acetylcy steine and Metamizole may falsely depress this assay. Reference Range HDL <40 mg/dL Low HDL Cholesterol HDL >or= 60 mg/dL High HDL Cholesterol Serum or plasma cholesterol in VLDL measurement (mass/volume)on 04-23-2022 Cholesterol in VLDL [Mass/Vol] 42 mg/dL 5-40 [facility] Work Phone: Serum or plasma creatinine m easurement (mass/volume)on 04-23-2022 Creatinine [Mass/Vol] 0.75 mg/dL 0.55-1.02 [facility] Work Phone: Comment on above: The validity of the calculated GFR & GFRAA in patients over 70 years has not been determined. Clinical correlation is essential. Serum or plasma low density lipoprotein (LDL) cholesterol measurement (mass/volume)on 04-23-2022 Cholesterol in LDL [Mass/Vol] 146 mg/dL 0-130 [facility] Work Phone: Serum or plasma urea nitroge n measurement (mass/volume)on 04-23-2022 Urea nitrogen [Mass/Vol] 16 mg/dL 7-18 [facility] Work Phone: [phone] Thin prep Papanicolaou smear with manual screeningon 04-23-2022 Thin prep Papanicolaou smear with manual screening 21 U/L 15-37 [facility] Work Phone: [phone] Thin prep Papanicolaou smear with manual screening 8 5-15 [facility] Work Phone: [phone] Vital Signs Date Time Vital Sign Value Performing Clinician Facility 03-16-2025 12:05-0400 Body mass index (BMI) [Ratio] 30.08 kg/m2 Joleen Jiang MD Work Phone: [facility] 03-16-2025 12:05-0400 Body temperature 97.81 [degF] Joleen Jiang MD Work Phone: [facility] 03-16-2025 12:05-0400 Body weight 79.5 kg Jolene Jiang MD Work Phone: [facility] 03-16-2025 12:05-0400 Diastolic blood pressure 83 mm[Hg] Joleen Jiang MD Work Phone: [facility] 03-16-2025 12:05-0400 Heart rate 88 /min Joleen Jiang MD Work Phone: [facility] 03-16-2025 12:05-0400 Respiratory rate 20 /min Joleen Jiang MD Work Phone: [facility] 03-16-2025 12:05-0400 SaO2% (BldA) [Mass fraction] 100 % Joleen Jiang MD Work Phone: [facility] 03-16-2025 12:05-0400 Systolic blood pressure 122 mm[Hg] Joleen Jiang MD Work Phone: [facility] 02-04-2025 14:50-0400 Body mass index (BMI) [Ratio] 30.42 kg/m2 Tri Dickerson PA-C Work Phone: [facility] 02-04-2025 14:50-0400 Body temperature 97.81 [degF] Tri Dickerson PA-C Work Phone: [facility] 02-04-2025 14:50-0400 Body weight 80.4 kg Tri Dickerson PA-C Work Phone: [facility] 02-04-2025 14:50-0400 Diastolic blood pressure 73 mm[Hg] Tri Tuan PA-C Work Phone: [facility] 02-04-2025 14:50-0400 Heart rate 93 /min Tri Dickerson PA-C Work Phone: [facility] 02-04-2025 14:50-0400 Respiratory rate 20 /min Tri Dickerson PA-C Work Phone: [facility] 02-04-2025 14:50-0400 SaO2% (BldA) [Mass fraction] 99 % Tri Tuan PA-C Work Phone: [facility] 02-04-2025 14:50-0400 Systolic blood pressure 115 mm[Hg] Tri Tuan PA-C Work Phone: [facility] 02-04-2025 10:24-0400 Body height 162.6 cm Love Juarez MD Work Phone: [facility] 02-04-2025 10:24-0400 Body mass index (BMI) [Ratio] 30.9 kg/m2 Love Juarez MD Work Phone: [facility] 02-04-2025 10:24-0400 Body weight 81.65 kg Love Juarez MD Work Phone: [facility] 02-03-2025 09:17-0400 Body height 162.6 cm Mariela Rivera APRN.[employer] Work Phone: [facility] 02-03-2025 09:17-0400 Body mass index (BMI) [Ratio] 30.95 kg/m2 Mariela Rivera APRN.[employer] Work Phone: [facility] 02-03-2025 09:17-0400 Body weight 81.8 kg Mariela Rivera APRN.[employer] Work Phone: [facility] 02-03-2025 09:17-0400 Diastolic blood pressure 84 mm[Hg] Mariela Rivera APRN.[employer] Work Phone: [facility] 02-03-2025 09:17-0400 Heart rate 84 /min Mariela Rivera APRN.[employer] Work Phone: [facility] 02-03-2025 09:17-0400 Respiratory rate 16 /min Mariela Rivera [employer] Work Phone: [facility] 02-03-2025 09:17-0400 SaO2% (BldA) [Mass fraction] 99 % Mariela Rivera [employer] Work Phone: [facility] 02-03-2025 09:17-0400 Systolic blood pressure 140 mm[Hg] Mariela Rivera [employer] Work Phone: [facility] 12-24-2024 08:46-0400 Body mass index (BMI) [Ratio] 31.32 kg/m2 Tri Tuan PA-C Work Phone: [facility] 12-24-2024 08:46-0400 Body temperature 97.11 [degF] Tri Tuan PA-C Work Phone: [facility] 12-24-2024 08:46-0400 Body weight 80.2 kg Tri Tuan PA-C Work Phone: [facility] 12-24-2024 08:46-0400 Diastolic blood pressure 75 mm[Hg] Tri Tuan PA-C Work Phone: [facility] 12-24-2024 08:46-0400 Heart rate 85 /min Tri Tuan PA-C Work Phone: [facility] 12-24-2024 08:46-0400 Respiratory rate 18 /min Tri Tuan PA-C Work Phone: [facility] 12-24-2024 08:46-0400 SaO2% (BldA) [Mass fraction] 100 % Tri Tuan PA-C Work Phone: [facility] 12-24-2024 08:46-0400 Systolic blood pressure 132 mm[Hg] Tri Tuan PA-C Work Phone: [facility] 11-24-2024 09:58-0400 Body height 160 cm Mark Mcdonnell MD Work Phone: [facility] 11-24-2024 09:58-0400 Body mass index (BMI) [Ratio] 31 kg/m2 Mark Mcdonnell MD Work Phone: [facility] 11-24-2024 09:58-0400 Body weight 79.38 kg Mark Mcdonnell MD Work Phone: [facility] 11-24-2024 09:58-0400 Diastolic blood pressure 96 mm[Hg] Mark Mcdonnell MD Work Phone: [facility] 11-24-2024 09:58-0400 Heart rate 90 /min Mark Mcdonnell MD Work Phone: [facility] 11-24-2024 09:58-0400 Respiratory rate 16 /min Mark Mcdonnell MD Work Phone: [facility] 11-24-2024 09:58-0400 Systolic blood pressure 139 mm[Hg] Mark Mcdonnell MD Work Phone: [facility] 11-08-2024 10:57-0400 Body mass index (BMI) [Ratio] 29.1 kg/m2 Joleen Jiang MD Work Phone: [facility] 11-08-2024 10:57-0400 Body temperature 97.81 [degF] Joleen Jiang MD Work Phone: [facility] 11-08-2024 10:57-0400 Body weight 76.9 kg Joleen Jiang MD Work Phone: [facility] 11-08-2024 10:57-0400 Diastolic blood pressure 83 mm[Hg] Joleen Jiang MD Work Phone: [facility] 11-08-2024 10:57-0400 Heart rate 85 /min Joleen Jiang MD Work Phone: [facility] 11-08-2024 10:57-0400 Respiratory rate 18 /min Joleen Jiang MD Work Phone: [facility] 11-08-2024 10:57-0400 SaO2% (BldA) [Mass fraction] 99 % Joleen Jiang MD Work Phone: [facility] 11-08-2024 10:57-0400 Systolic blood pressure 123 mm[Hg] Joleen Jiang MD Work Phone: [facility] 10-28-2024 09:27-0500 Body height 162.6 cm Mariela Rivera APRN.[employer] Work Phone: [facility] 10-28-2024 09:27-0500 Body mass index (BMI) [Ratio] 29.55 kg/m2 Mariela Rivera APRN.[employer] Work Phone: [facility] 10-28-2024 09:27-0500 Body weight 78.1 kg Mariela Rivera APRN.[employer] Work Phone: [facility] 10-28-2024 09:27-0500 Diastolic blood pressure 75 mm[Hg] Mariela Rivera APRN.[employer] Work Phone: [facility] 10-28-2024 09:27-0500 Heart rate 76 /min Mariela Rivera APRN.[employer] Work Phone: [facility] 10-28-2024 09:27-0500 SaO2% (BldA) [Mass fraction] 98 % Mariela Rivera APRN.[employer] Work Phone: [facility] 10-28-2024 09:27-0500 Systolic blood pressure 115 mm[Hg] Mariela Rivera APRN.[employer] Work Phone: [facility] 10-18-2024 13:41-0500 Body mass index (BMI) [Ratio] 29.48 kg/m2 Tri Dickerson PA-C Work Phone: [facility] 10-18-2024 13:41-0500 Body temperature 97.9 [degF] Tri Dickerson PA-C Work Phone: [facility] 10-18-2024 13:41-0500 Body weight 77.9 kg Tri Tuan PA-C Work Phone: [facility] 10-18-2024 13:41-0500 Diastolic blood pressure 79 mm[Hg] Tri Tuan PA-C Work Phone: [facility] 10-18-2024 13:41-0500 Heart rate 94 /min Tri Tuan PA-C Work Phone: [facility] 10-18-2024 13:41-0500 Respiratory rate 20 /min Tri Tuan PA-C Work Phone: [facility] 10-18-2024 13:41-0500 SaO2% (BldA) [Mass fraction] 98 % Tri Tuan PA-C Work Phone: [facility] 10-18-2024 13:41-0500 Systolic blood pressure 121 mm[Hg] Tri Tuan PA-C Work Phone: [facility] 09-27-2024 12:46-0500 Body mass index (BMI) [Ratio] 29.21 kg/m2 Joleen Jiang MD Work Phone: [facility] 09-27-2024 12:46-0500 Body temperature 98.8 [degF] Joleen Jiang MD Work Phone: [facility] 09-27-2024 12:46-0500 Body weight 77.2 kg Joleen Jiang MD Work Phone: [facility] 09-27-2024 12:46-0500 Diastolic blood pressure 88 mm[Hg] Joleen Jiang MD Work Phone: [facility] 09-27-2024 12:46-0500 Heart rate 102 /min Joleen Jiang MD Work Phone: [facility] 09-27-2024 12:46-0500 Respiratory rate 16 /min Joleen Jiang MD Work Phone: [facility] 09-27-2024 12:46-0500 SaO2% (BldA) [Mass fraction] 98 % Joleen Jiang MD Work Phone: [facility] 09-27-2024 12:46-0500 Systolic blood pressure 110 mm[Hg] Joleen Jiang MD Work Phone: [facility] 09-03-2024 13:33-0500 Body mass index (BMI) [Ratio] 29.4 kg/m2 Joleen Jiang MD Work Phone: [facility] 09-03-2024 13:33-0500 Body temperature 97.59 [degF] Joleen Jiang MD Work Phone: [facility] 09-03-2024 13:33-0500 Body weight 77.7 kg Joleen Jiang MD Work Phone: [facility] 09-03-2024 13:33-0500 Diastolic blood pressure 87 mm[Hg] Joleen Jiang MD Work Phone: [facility] 09-03-2024 13:33-0500 Heart rate 85 /min Joleen Jiang MD Work Phone: [facility] 09-03-2024 13:33-0500 Respiratory rate 18 /min Joleen Jiang MD Work Phone: [facility] 09-03-2024 13:33-0500 SaO2% (BldA) [Mass fraction] 98 % Joleen Jiang MD Work Phone: [facility] 09-03-2024 13:33-0500 Systolic blood pressure 133 mm[Hg] Joleen Jiang MD Work Phone: [facility] 07-29-2024 11:30-0500 Diastolic blood pressure 62 mm[Hg] Mariela Rivera APRN.[employer] Work Phone: [facility] 07-29-2024 11:30-0500 Heart rate 70 /min Mariela Rivera APRN.[employer] Work Phone: [facility] 07-29-2024 11:30-0500 Respiratory rate 16 /min Mariela Rivera RAMY.[employer] Work Phone: [facility] 07-29-2024 11:30-0500 SaO2% (BldA) [Mass fraction] 100 % Mariela Rivera [employer] Work Phone: [facility] 07-29-2024 11:30-0500 Systolic blood pressure 154 mm[Hg] Mariela Rivera RAMY.[employer] P[employer] Work Phone: [facility] 07-23-2024 10:33-0500 Body height 162.6 cm Love Juarez MD Work Phone: [facility] 07-23-2024 10:33-0500 Body mass index (BMI) [Ratio] 29.7 kg/m2 Love Juarez MD Work Phone: [facility] 07-23-2024 10:33-0500 Body weight 78.47 kg Love Juarez MD Work Phone: [facility] 07-19-2024 07:58-0500 Body temperature 97.3 [degF] Chair 2 Work Phone: [facility] 07-19-2024 07:58-0500 Diastolic blood pressure 82 mm[Hg] Chair 2 Work Phone: [facility] 07-19-2024 07:58-0500 Heart rate 81 /min Chair 2 Work Phone: [facility] 07-19-2024 07:58-0500 Respiratory rate 18 /min Chair 2 Work Phone: [facility] 07-19-2024 07:58-0500 SaO2% (BldA) [Mass fraction] 99 % Chair 2 Work Phone: [facility] 07-19-2024 07:58-0500 Systolic blood pressure 137 mm[Hg] Chair 2 Work Phone: [facility] 06-30-2024 15:18-0500 Body mass index (BMI) [Ratio] 29.74 kg/m2 Tri Tuan PA-C Work Phone: [facility] 06-30-2024 15:18-0500 Body temperature 97.59 [degF] Tri Tuan PA-C Work Phone: [facility] 06-30-2024 15:18-0500 Body weight 78.6 kg Tri Tuan PA-C Work Phone: [facility] 06-30-2024 15:18-0500 Diastolic blood pressure 81 mm[Hg] Tri Tuan PA-C Work Phone: [facility] 06-30-2024 15:18-0500 Heart rate 105 /min Tri Tuan PA-C Work Phone: [facility] 06-30-2024 15:18-0500 Respiratory rate 20 /min Tri Tuan PA-C Work Phone: [facility] 06-30-2024 15:18-0500 SaO2% (BldA) [Mass fraction] 99 % Tri Tuan PA-C Work Phone: [facility] 06-30-2024 15:18-0500 Systolic blood pressure 112 mm[Hg] Tri Tuan PA-C Work Phone: [facility] 06-07-2024 11:34-0400 Body mass index (BMI) [Ratio] 30.05 kg/m2 Joleen Jiang MD Work Phone: [facility] 06-07-2024 11:34-0400 Body temperature 97.59 [degF] Joleen Jiang MD Work Phone: [facility] 06-07-2024 11:34-0400 Body weight 79.4 kg Joleen Jiang MD Work Phone: [facility] 06-07-2024 11:34-0400 Diastolic blood pressure 79 mm[Hg] Joleen Jiang MD Work Phone: [facility] 06-07-2024 11:34-0400 Heart rate 95 /min Joleen Jiang MD Work Phone: [facility] 06-07-2024 11:34-0400 Respiratory rate 20 /min Joleen Jiang MD Work Phone: [facility] 06-07-2024 11:34-0400 SaO2% (BldA) [Mass fraction] 98 % Joleen Jiang MD Work Phone: [facility] 06-07-2024 11:34-0400 Systolic blood pressure 128 mm[Hg] Joleen Jiang MD Work Phone: [facility] 05-14-2024 13:20-0400 Body mass index (BMI) [Ratio] 29.4 kg/m2 Tri Tuan PA-C Work Phone: [facility] 05-14-2024 13:20-0400 Body temperature 97.5 [degF] Tri Tuan PA-C Work Phone: [facility] 05-14-2024 13:20-0400 Body weight 77.7 kg Tri Tuan PA-C Work Phone: [facility] 05-14-2024 13:20-0400 Diastolic blood pressure 95 mm[Hg] Tri Tuan PA-C Work Phone: [facility] 05-14-2024 13:20-0400 Heart rate 118 /min Tri Tuan PA-C Work Phone: [facility] 05-14-2024 13:20-0400 Respiratory rate 20 /min Tri Tuan PA-C Work Phone: [facility] 05-14-2024 13:20-0400 SaO2% (BldA) [Mass fraction] 99 % Tri Tuan PA-C Work Phone: [facility] Comment on above: RA 05-14-2024 13:20-0400 Systolic blood pressure 154 mm[Hg] Tri Tuan PA-C Work Phone: [facility] 04-23-2024 11:50-0400 Body mass index (BMI) [Ratio] 28.99 kg/m2 Joleen Jiang MD Work Phone: [facility] 04-23-2024 11:50-0400 Body temperature 97.7 [degF] Joleen Jiang MD Work Phone: [facility] 04-23-2024 11:50-0400 Body weight 76.6 kg Joleen Jiang MD Work Phone: [facility] 04-23-2024 11:50-0400 Diastolic blood pressure 73 mm[Hg] Joleen Jiang MD Work Phone: [facility] 04-23-2024 11:50-0400 Heart rate 93 /min Joleen Jiang MD Work Phone: [facility] 04-23-2024 11:50-0400 Respiratory rate 20 /min Joleen Jiang MD Work Phone: [facility] 04-23-2024 11:50-0400 SaO2% (BldA) [Mass fraction] 98 % Joleen Jiang MD Work Phone: [facility] 04-23-2024 11:50-0400 Systolic blood pressure 122 mm[Hg] Joleen Jiang MD Work Phone: [facility] 04-22-2024 11:30-0400 Body mass index (BMI) [Ratio] 29.1 kg/m2 Mariela Rivera APRN.[employer] MACHINE [employer] PERSON Work Phone: [facility] 04-22-2024 11:30-0400 Body weight 76.9 kg Mariela Rivera APRN.SLOT MACHINE KEY PERSON Work Phone: [facility] 04-22-2024 11:30-0400 Diastolic blood pressure 86 mm[Hg] Mariela Rivera APRN.SLOT MACHINE KEY PERSON Work Phone: [facility] 04-22-2024 11:30-0400 Heart rate 104 /min Mariela Miguel MCCANN.SLOT MACHINE KEY PERSON Work Phone: [facility] 04-22-2024 11:30-0400 SaO2% (BldA) [Mass fraction] 98 % Mariela Luxcuca MCCANN.SLOT MACHINE KEY PERSON Work Phone: [facility] 04-22-2024 11:30-0400 Systolic blood pressure 120 mm[Hg] Mariela Rivera [employer] MACHINE [employer] PERSON Work Phone: [facility] 04-02-2024 11:07-0400 Body mass index (BMI) [Ratio] 29.14 kg/m2 Tri Tuan PA-C Work Phone: [facility] 04-02-2024 11:07-0400 Body temperature 97.3 [degF] Tri Tuan PA-C Work Phone: [facility] 04-02-2024 11:07-0400 Body weight 77 kg Tri Tuan PA-C Work Phone: [facility] 04-02-2024 11:07-0400 Diastolic blood pressure 80 mm[Hg] Rti Tuan PA-C Work Phone: [facility] 04-02-2024 11:07-0400 Heart rate 97 /min Tri Tuan PA-C Work Phone: [facility] 04-02-2024 11:07-0400 Respiratory rate 20 /min Tri Tuan PA-C Work Phone: [facility] 04-02-2024 11:07-0400 SaO2% (BldA) [Mass fraction] 99 % Tri Tuan PA-C Work Phone: [facility] 04-02-2024 11:07-0400 Systolic blood pressure 137 mm[Hg] Tri Tuan PA-C Work Phone: [facility] 03-12-2024 09:31-0400 Body mass index (BMI) [Ratio] 30.08 kg/m2 Martine Marrufo [employer] PERSON Work Phone: [facility] 03-12-2024 09:31-0400 Body temperature 97.5 [degF] Martine Marrufo [employer] MACHINE [employer] PERSON Work Phone: [facility] 03-12-2024 09:31-0400 Body weight 79.5 kg Martine Marrufo [employer] MACHINE [employer] PERSON Work Phone: [facility] 03-12-2024 09:31-0400 Diastolic blood pressure 81 mm[Hg] Martine Marrufo [employer].SL[employer] MACHINE [employer] PERSON Work Phone: [facility] 03-12-2024 09:31-0400 Heart rate 87 /min Martine Marrufo [employer] MACHINE KEY PERSON Work Phone: [facility] 03-12-2024 09:31-0400 Respiratory rate 20 /min Martine Marrufo [employer].SL[employer] MACHINE [employer] PERSON Work Phone: [facility] 03-12-2024 09:31-0400 SaO2% (BldA) [Mass fraction] 98 % Martine Marrufo [employer].SL[employer] MACHINE [employer] PERSON Work Phone: [facility] Comment on above: RA 03-12-2024 09:31-0400 Systolic blood pressure 152 mm[Hg] Martine Marrufo [employer] MACHINE [employer] PERSON Work Phone: [facility] 03-05-2024 10:32-0400 Body mass index (BMI) [Ratio] 30.9 kg/m2 Mark Mcdonnell MD Work Phone: [facility] 03-05-2024 10:32-0400 Body weight 81.65 kg Mark Mcdonnell MD Work Phone: [facility] 03-05-2024 10:32-0400 Diastolic blood pressure 87 mm[Hg] Mark Mcdonnell MD Work Phone: [facility] 03-05-2024 10:32-0400 Heart rate 98 /min Mark Mcdonnell MD Work Phone: [facility] 03-05-2024 10:32-0400 Respiratory rate 18 /min Mark Mcdonnell MD Work Phone: [facility] 03-05-2024 10:32-0400 Systolic blood pressure 116 mm[Hg] Mark Mcdonnell MD Work Phone: [facility] 03-02-2024 10:05-0400 Body mass index (BMI) [Ratio] 30.8 kg/m2 Urgent (Trac) Work Phone: [facility] 03-02-2024 10:05-0400 Body weight 81.4 kg Urgent (Trac) Work Phone: [facility] 02-20-2024 14:41-0400 Body mass index (BMI) [Ratio] 30.65 kg/m2 Joleen Jiang MD Work Phone: [facility] 02-20-2024 14:41-0400 Body temperature 97.2 [degF] Joleen Jiang MD Work Phone: [facility] 02-20-2024 14:41-0400 Body weight 81 kg Joleen Jiang MD Work Phone: [facility] Comment on above: shoes on 02-20-2024 14:41-0400 Respiratory rate 18 /min Joleen Jiang MD Work Phone: [facility] 02-03-2024 09:17-0400 Body mass index (BMI) [Ratio] 31.45 kg/m2 Zeb Vale MD Work Phone: [facility] 02-03-2024 09:17-0400 Body weight 83.1 kg Zeb Vale MD Work Phone: [facility] 01-29-2024 14:20-0400 Body mass index (BMI) [Ratio] 30.84 kg/m2 Carla Payan APRN.SLOT MACHINE KEY PERSON Work Phone: [facility] 01-29-2024 14:20-0400 Body temperature 97.7 [degF] Carla Payan APRN.SLOT MACHINE KEY PERSON Work Phone: [facility] 01-29-2024 14:20-0400 Body weight 81.5 kg Carla Payan [employer] MACHINE [employer] PERSON Work Phone: [facility] 01-29-2024 14:20-0400 Diastolic blood pressure 82 mm[Hg] Carla Payan [employer].SL[employer] MACHINE [employer] PERSON Work Phone: [facility] 01-29-2024 14:20-0400 Heart rate 105 /min Carla Payan [employer].SL[employer] MACHINE [employer] PERSON Work Phone: [facility] 01-29-2024 14:20-0400 Respiratory rate 20 /min Carla Payan [employer].SL[employer] MACHINE [employer] PERSON Work Phone: [facility] 01-29-2024 14:20-0400 SaO2% (BldA) [Mass fraction] 97 % Carla Payan [employer].SL[employer] MACHINE KEY PERSON Work Phone: [facility] 01-29-2024 14:20-0400 Systolic blood pressure 120 mm[Hg] Carla Payan [employer].SL[employer] MACHINE [employer] PERSON Work Phone: [facility] 01-16-2024 10:17-0400 Body mass index (BMI) [Ratio] 30.9 kg/m2 Grace Pastor PA-C Work Phone: [facility] 01-16-2024 10:17-0400 Body temperature 97.9 [degF] Grace Pastor PA-C Work Phone: [facility] 01-16-2024 10:17-0400 Body weight 81.65 kg Grace Pastor PA-C Work Phone: [facility] 01-08-2024 12:48-0400 Body height 162.6 cm Mariela Rivera APRN.CRIS Work Phone: [facility] 01-08-2024 12:48-0400 Body mass index (BMI) [Ratio] 31.03 kg/m2 Mariela Rivera APRN.CRIS Work Phone: [facility] 01-08-2024 12:48-0400 Body weight 82 kg Mariela Rivera RAMY.SLOT MACHINE KEY PERSON Work Phone: [facility] 01-08-2024 12:48-0400 Diastolic blood pressure 78 mm[Hg] Mariela Rivera RAMY.SLOT MACHINE KEY PERSON Work Phone: [facility] 01-08-2024 12:48-0400 Heart rate 90 /min Mariela Rivera RAMY.SLOT MACHINE KEY PERSON Work Phone: [facility] 01-08-2024 12:48-0400 SaO2% (BldA) [Mass fraction] 99 % Mariela Rivera [employer].SL[employer] MACHINE [employer] PERSON Work Phone: [facility] 01-08-2024 12:48-0400 Systolic blood pressure 117 mm[Hg] Mariela Rivera RAMY.SLOT MACHINE KEY PERSON Work Phone: [facility] 12-29-2023 12:00-0400 Body height 162.6 cm Pacc 2 Work Phone: [facility] 12-29-2023 12:00-0400 Body mass index (BMI) [Ratio] 30.65 kg/m2 Pacc 2 Work Phone: [facility] 12-29-2023 12:00-0400 Body temperature 97.81 [degF] Pacc 2 Work Phone: [facility] 12-29-2023 12:00-0400 Body weight 81 kg Pacc 2 Work Phone: [facility] 12-29-2023 12:00-0400 Diastolic blood pressure 87 mm[Hg] Pacc 2 Work Phone: [facility] 12-29-2023 12:00-0400 Heart rate 89 /min Pacc 2 Work Phone: [facility] 12-29-2023 12:00-0400 Respiratory rate 16 /min Pacc 2 Work Phone: [facility] 12-29-2023 12:00-0400 SaO2% (BldA) [Mass fraction] 98 % Pacc 2 Work Phone: [facility] 12-29-2023 12:00-0400 Systolic blood pressure 130 mm[Hg] Pacc 2 Work Phone: [facility] 12-05-2023 10:49-0400 Diastolic blood pressure 75 mm[Hg] Mark Mcdonnell MD Work Phone: [facility] 12-05-2023 10:49-0400 Heart rate 98 /min Mark Mcdonnell MD Work Phone: [facility] 12-05-2023 10:49-0400 Respiratory rate 16 /min Mark Mcdonnell MD Work Phone: [facility] 12-05-2023 10:49-0400 Systolic blood pressure 114 mm[Hg] Mark Mcdonnell MD Work Phone: [facility] 11-26-2023 11:42-0400 Body temperature 97.3 [degF] Joleen Jiang MD Work Phone: [facility] 11-26-2023 11:42-0400 Body weight 81.6 kg Joleen Jiang MD Work Phone: [facility] 11-26-2023 11:42-0400 Diastolic blood pressure 80 mm[Hg] Joleen Jiang MD Work Phone: [facility] 11-26-2023 11:42-0400 Heart rate 98 /min Joleen Jiang MD Work Phone: [facility] 11-26-2023 11:42-0400 Respiratory rate 20 /min Joleen Jiang MD Work Phone: [facility] 11-26-2023 11:42-0400 SaO2% (BldA) [Mass fraction] 98 % Joleen Jiang MD Work Phone: [facility] 11-26-2023 11:42-0400 Systolic blood pressure 127 mm[Hg] Joleen Jiang MD Work Phone: [facility] 10-29-2023 13:16-0500 Body temperature 97.9 [degF] Jamel Pennington [employer] MACHINE [employer] PERSON Work Phone: [facility] 10-29-2023 13:16-0500 Body weight 80.2 kg Jamel Pennington [employer].SL[employer] MACHINE KEY PERSON Work Phone: [facility] 10-29-2023 13:16-0500 Diastolic blood pressure 79 mm[Hg] Jamel Pennington [employer].SL[employer] MACHINE KEY PERSON Work Phone: [facility] 10-29-2023 13:16-0500 Heart rate 114 /min Jamel Pennington [employer].SL[employer] MACHINE KEY PERSON Work Phone: [facility] 10-29-2023 13:16-0500 Respiratory rate 20 /min Jamel Pennington [employer].SL[employer] MACHINE KEY PERSON Work Phone: [facility] 10-29-2023 13:16-0500 SaO2% (BldA) [Mass fraction] 100 % Jamel Pennington [employer].SL[employer] MACHINE KEY PERSON Work Phone: [facility] 10-29-2023 13:16-0500 Systolic blood pressure 123 mm[Hg] Jamel Pennington [employer].SL[employer] MACHINE KEY PERSON Work Phone: [facility] 10-08-2023 13:47-0500 Body temperature 98.2 [degF] Joleen Jiang MD Work Phone: [facility] 10-08-2023 13:47-0500 Body weight 79.6 kg Joleen Jiang MD Work Phone: [facility] 10-08-2023 13:47-0500 Diastolic blood pressure 78 mm[Hg] Joleen Jiang MD Work Phone: [facility] 10-08-2023 13:47-0500 Heart rate 113 /min Joleen Jiang MD Work Phone: [facility] 10-08-2023 13:47-0500 Respiratory rate 20 /min Joleen Jiang MD Work Phone: [facility] 10-08-2023 13:47-0500 SaO2% (BldA) [Mass fraction] 97 % Joleen Jiang MD Work Phone: [facility] 10-08-2023 13:47-0500 Systolic blood pressure 119 mm[Hg] Joleen Jiang MD Work Phone: [facility] 09-26-2023 08:31-0500 Body height 162.5 cm Gabino Mellors [employer] MACHINE [employer] PERSON Work Phone: [facility] 09-26-2023 08:31-0500 Body temperature 98.2 [degF] Gabino Mellors [employer].SL[employer] MACHINE KEY PERSON Work Phone: [facility] 09-26-2023 08:31-0500 Body weight 77.9 kg Gabino Mellors [employer].SL[employer] MACHINE KEY PERSON Work Phone: [facility] 09-26-2023 08:31-0500 Diastolic blood pressure 69 mm[Hg] Gabino Mellors [employer].SL[employer] MACHINE KEY PERSON Work Phone: [facility] 09-26-2023 08:31-0500 Heart rate 110 /min Gabino Mellors [employer].SL[employer] MACHINE KEY PERSON Work Phone: [facility] 09-26-2023 08:31-0500 Respiratory rate 18 /min Gabino Mellors [employer].SL[employer] MACHINE KEY PERSON Work Phone: [facility] 09-26-2023 08:31-0500 SaO2% (BldA) [Mass fraction] 97 % Gabino Mellors [employer].SL[employer] MACHINE KEY PERSON Work Phone: [facility] 09-26-2023 08:31-0500 Systolic blood pressure 116 mm[Hg] Gabino Mellors [employer].SL[employer] MACHINE KEY PERSON Work Phone: [facility] 08-04-2023 10:11-0500 Body height 162.5 cm Joleen Jiang MD Work Phone: [facility] 08-04-2023 10:11-0500 Body temperature 98.01 [degF] Joleen Jiang MD Work Phone: [facility] 08-04-2023 10:11-0500 Body weight 78.3 kg Joleen Jiang MD Work Phone: [facility] 08-04-2023 10:11-0500 Diastolic blood pressure 78 mm[Hg] Joleen Jiang MD Work Phone: [facility] 08-04-2023 10:11-0500 Heart rate 87 /min Joleen Jiang MD Work Phone: [facility] 08-04-2023 10:11-0500 Respiratory rate 16 /min Joleen Jiang MD Work Phone: [facility] 08-04-2023 10:11-0500 SaO2% (BldA) [Mass fraction] 98 % Joleen Jiang MD Work Phone: [facility] 08-04-2023 10:11-0500 Systolic blood pressure 126 mm[Hg] Joleen Jiang MD Work Phone: [facility] 05-05-2023 16:36-0400 Body height 165.1 cm [facility] 05-05-2023 16:36-0400 Body mass index (BMI) [Ratio] 28.8 kg/m2 [facility] 05-05-2023 16:36-0400 Body temperature 97.9 [degF] [facility] 05-05-2023 16:36-0400 Body weight 78.47 kg [facility] 05-05-2023 16:36-0400 Diastolic blood pressure 60 mm[Hg] [facility] 05-05-2023 16:36-0400 Heart rate 92 /min [facility] 05-05-2023 16:36-0400 Respiratory rate 18 /min [facility] 05-05-2023 16:36-0400 SaO2% (BldA) [Mass fraction] 96 % [facility] 05-05-2023 16:36-0400 Systolic blood pressure 100 mm[Hg] [facility] 04-23-2022 16:02-0400 Body height 165.1 cm [facility] Work Phone: 04-23-2022 16:02-0400 Body mass index (BMI) [Ratio] 28.3 kg/m2 [facility] Work Phone: 04-23-2022 16:02-0400 Body temperature 98.1 [degF] [facility] Work Phone: 04-23-2022 16:02-0400 Body weight 77.11 kg [facility] Work Phone: 04-23-2022 16:02-0400 Diastolic blood pressure 80 mm[Hg] [facility] Work Phone: 04-23-2022 16:02-0400 Heart rate 91 /min [facility] Work Phone: 04-23-2022 16:02-0400 Respiratory rate 18 /min [facility] Work Phone: 04-23-2022 16:02-0400 SaO2% (BldA) [Mass fraction] 96 % [facility] Work Phone: 04-23-2022 16:02-0400 Systolic blood pressure 150 mm[Hg] [facility] Work Phone: Encounters Encounter Date Encounter Type Care Provider Facility Start: 03-16-2025 End: 03-16-[address] Work Phone: Hematology/Oncology Comment on above: Adenocarcinoma of lisandra ng, stage 4, unspecified laterality (HCC) (Primary Dx) Start: 03-16-2025 End: 03-16-2025 Patient encounter procedure Joleen Jiang MD Work Phone: Hematology/Oncology Start: 03-16-2025 End: 03-16-2025 ambulatory Lab [facility] 1 Work Phone: Hematology/Oncology Comment on above: Adenocarcinoma of lisandra ng, stage 4, unspecified laterality (HCC); Encounter for antineoplastic immunotherapy Adenocarcinoma of lisandra ng, stage 4, unspecified laterality (HCC) (Primary Dx) Start: 03-09-2025 End: 03-09-2025 Refleandra Jiang MD Work Phone: Hematology/Oncology Comment on above: Refill Request Start: 02-14-2025 End: 02-14-2025 ambulatory Joleen Jiang MD Work Phone: Hematology/Oncology Comment on above: CT results Start: 02-04-2025 End: 02-04-2025 Office outpatient visit 25 minutes Tri Dickerson PA-C Work Phone: Hematology/Oncology Comment on above: Adenocarcinoma of lisandra ng, stage 4, unspecified laterality (HCC) (Primary Dx); Encounter for antineoplastic immunotherapy; Rib pain on left side; Elevated serum creatinine Start: 02-04-2025 End: 02-04-2025 ambulatory Lab [facility] [place] [facility] Work Phone: Hematology/Oncology Comment on above: Adenocarcinoma of lisandra ng, stage 4, unspecified laterality (HCC) (Primary Dx) Start: 02-04-2025 End: 02-04-2025 Patient encounter procedure Love Juarez MD Work Phone: [facility] Comment on above: S/P lumpectomy, righ t breast (Primary Dx) Start: 02-03-2025 End: 02-03-2025 Patient encounter procedure Mariela Rivera APRN.CNP Work Phone: Neurosurgery Comment on above: Metastasis to brain (HCC) (Primary Dx) Start: 02-03-2025 End: 02-03-2025 ambulatory MARIELA RIVERA Facility:[facility] Start: 02-03-2025 ambulatory UNKNOWN PROVIDER Facili ty:[facility] Start: 02-03-2025 End: 02-03-2025 Subsequent hospital visit by physician Mri [facility] (1.5t) Radiology Comment on above: Metastasis to brain (HCC) [C79.31] Start: 01-31-2025 ambulatory UNKNOWN PROVIDER Facili ty:[facility] Start: 01-31-2025 End: 01-31-2025 Subsequent hospital visit by physician Ct [facility] Radiology Comment on above: Adenocarcinoma of lisandra ng, stage 4, unspecified laterality (HCC) [C34.90] Start: 12-24-2024 End: 12-24-2024 Office outpatient visit 15 minutes Tri Dickerson PA-C Work Phone: Hematology/Oncology Comment on above: Adenocarcinoma of lisandra ng, stage 4, unspecified laterality (HCC) (Primary Dx); Encounter for antineoplastic immunotherapy; Shortness of breath Start: 12-24-2024 End: 12-24-2024 ambulatory Lab [place] [facility] [place] [facility] Work Phone: Hematology/Oncology Comment on above: Adenocarcinoma of lisandra ng, stage 4, 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, stage 4, unspecified laterality (HCC) (Primary Dx) Start: 12-04-2024 End: 12-06-2024 Refill Joleen Jiang MD Work Phone: Hematology/Oncology Comment on above: Refill Request Start: 11-24-2024 End: 11-24-2024 Patient encounter procedure Mark Mcdonnell MD Work Phone: Neurology Epilepsy Comment on above: Focal epilepsy (HCC) Start: 11-24-2024 End: 11-24-2024 ambulatory MARK MCDONNELL Facility:[facility] Start: 11-08-2024 End: 11-08-2024 Patient encounter procedure Joleen Jiang MD Work Phone: Hematology/Oncology Start: 11-08-2024 End: 11-08-2024 ambulatory Lab [facility] Work Phone: Hematology/Oncology Comment on above: Adenocarcinoma of lisandra ng, stage 4, 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, stage 4, unspecified laterality (HCC) (Primary Dx) Start: 11-04-2024 ambulatory UNKNOWN PROVIDER Facili ty:[facility] Start: 11-04-2024 End: 11-04-2024 Subsequent hospital visit by physician Ct [facility] Radiology Comment on above: Adenocarcinoma of lisandra ng, stage 4, unspecified laterality (HCC) [C34.90] Start: 11-01-2024 End: 11-01-2024 Refill Joleen Jiang MD Work Phone: Hematology/Oncology Comment on above: Refill Request Start: 10-28-2024 End: 10-28-2024 Patient encounter procedure Mariela Rivera APRN.SLOT MACHINE KEY PERSON Work Phone: Neurosurgery Comment on above: Metastasis to brain (HCC) (Primary Dx) Start: 10-28-2024 End: 10-28-2024 ambulatory UNKNOWN PROVIDER Facility:[facility] Start: 10-28-2024 End: 10-28-2024 Subsequent hospital visit by physician Mri [facility] (1.5t) Radiology Comment on above: Metastasis to brain (HCC) [C79.31] Start: 10-18-2024 End: 10-19-[address] Work Phone: Hematology/Oncology Comment on above: Metastasis to brain (HCC) (Primary Dx); Neoplasm of lung Start: 10-18-2024 End: 10-18-2024 Office outpatient visit 15 minutes Tri Dickerson PA-C Work Phone: Hematology/Oncology Comment on above: Adenocarcinoma of lisandra ng, stage 4, unspecified laterality (HCC) (Primary Dx); Encounter for antineoplastic chemotherapy and immunotherapy; Shortness of breath Start: 10-18-2024 End: 10-18-2024 ambulatory Lab [facility] Work Phone: Hematology/Oncology Comment on above: Adenocarcinoma of lisandra ng, stage 4, unspecified laterality (HCC) Start: 10-02-2024 End: 10-04-2024 Refill Andrea Guadalupe APRN.SLOT MACHINE KEY PERSON Work Phone: Neurology Comment on above: Refill Request Start: 09-27-2024 End: 09-27-2024 Patient encounter procedure Joleen Jiang MD Work Phone: Hematology/Oncology Start: 09-27-2024 End: 09-27-2024 ambulatory Lab [facility] [place] [facility] Work Phone: Hematology/Oncology Comment on above: Adenocarcinoma of lisandra ng, stage 4, unspecified laterality (HCC) Metastasis to brain (HCC) (Primary Dx); Neoplasm of lung Adenocarcinoma of lisandra ng, stage 4, unspecified laterality (HCC) (Primary Dx) Start: 09-21-2024 End: 09-21-2024 Refill Joleen Jiang MD Work Phone: Hematology/Oncology Comment on above: Refill Request Start: 09-15-2024 End: 09-15-2024 Refill Joleen Jiang MD Work Phone: Hematology/Oncology Comment on above: Refill Request Start: 09-07-2024 ambulatory UNKNOWN PROVIDER Facili ty:[facility] Start: 09-07-2024 End: 09-07-2024 Subsequent hospital visit by physician Screen/Diagnostic Mammo [facility] Work Phone: Mammography Start: 09-03-2024 End: 09-04-2024 ambulatory Joleen Jiang MD Work Phone: Hematology/Oncology Comment on above: Adenocarcinoma of lisandra ng, stage 4, unspecified laterality (HCC) (Primary Dx) Metastasis to brain (HCC) (Primary Dx); Neoplasm of lung Start: 09-03-2024 End: 09-03-2024 Patient encounter procedure Joleen Jiang MD Work Phone: Hematology/Oncology Start: 09-03-2024 End: 09-03-2024 ambulatory [facility] [place] [facility] Work Phone: Hematology/Oncology Comment on above: Adenocarcinoma of lisandra ng, stage 4, unspecified laterality (HCC) Start: 08-26-2024 ambulatory UNKNOWN PROVIDER Facili ty:[facility] Start: 08-26-2024 End: 08-26-2024 Subsequent hospital visit by physician Ct [facility] Radiology Comment on above: Adenocarcinoma of lisandra ng, stage 4, unspecified laterality (HCC) [C34.90] Start: 08-18-2024 End: 08-19-2024 Refill Joleen Jiang MD Work Phone: Hematology/Oncology Comment on above: Refill Request Start: 07-29-2024 End: 07-29-2024 ambulatory MARIELA RIVERA Facility:[facility] Start: 07-29-2024 End: 07-29-2024 Patient encounter procedure Mariela Rivera APRN.CNP Work Phone: Neurosurgery Comment on above: Metastasis to brain (HCC) (Primary Dx) Start: 07-29-2024 ambulatory UNKNOWN PROVIDER Facili ty:[facility] Start: 07-29-2024 End: 07-29-2024 Subsequent hospital visit by physician [facility] (1.5t) Radiology Comment on above: Metastasis to brain (HCC) [C79.31] Start: 07-23-2024 End: 07-23-2024 ambulatory LOVE JUAREZ Facility:[facility] Start: 07-23-2024 End: 07-23-2024 Patient encounter procedure Love Juarez MD Work Phone: [facility] Comment on above: S/P lumpectomy, righ t breast (Primary Dx) Start: 07-21-2024 End: 07-21-2024 Refill Joleen Jiang MD Work Phone: Hematology/Oncology Comment on above: Refill Request Start: 07-19-2024 End: 07-19-2024 Patient encounter procedure Joleen Jiang MD Work Phone: Hematology/Oncology Start: 07-19-2024 End: 07-19-2024 ambulatory Jolene Jiang MD Work Phone: Hematology/Oncology Comment on above: Adenocarcinoma of lisandra ng, stage 4, unspecified laterality (HCC) (Primary Dx) Metastasis to brain (HCC) (Primary Dx); Adenocarcinoma of lung, stage 4, unspecified laterality (HCC); Neoplasm of lung Start: 07-13-2024 End: 07-13-2024 Telephone encounter Anjelica Pereira RN Hematology/Oncology Comment on above: Care Coordination Start: 07-11-2024 End: 07-12-2024 Refill Mark Mcdonnell MD Work Phone: Neurology Epilepsy Comment on above: Refill Request Start: 06-30-2024 End: 06-30-2024 Office outpatient visit 25 minutes Tri Dickerson PA-C Work Phone: Hematology/Oncology Comment on above: Adenocarcinoma of lisandra ng, stage 4, unspecified laterality (HCC) (Primary Dx); Encounter for antineoplastic chemotherapy and immunotherapy; Leg swelling Start: 06-30-2024 End: 07-01-2024 ambulatory Lab [place] [facility] [place] [facility] Work Phone: Hematology/Oncology Comment on above: Adenocarcinoma of lisandra ng, stage 4, unspecified laterality (HCC) Metastasis to brain (HCC) (Primary Dx); Adenocarcinoma of lung, stage 4, unspecified laterality (HCC); Neoplasm of lung Start: 06-07-2024 End: 06-08-2024 ambulatory Chair 22 [facility] 2 Work Phone: Hematology/Oncology Comment on above: Metastasis to brain (HCC) (Primary Dx); Neoplasm of lung Start: 06-07-2024 End: 06-07-2024 Patient encounter procedure Joleen Jiang MD Work Phone: Hematology/Oncology Start: 06-07-2024 End: 06-07-2024 ambulatory Lab [place] [facility] 1 Work Phone: Hematology/Oncology Comment on above: Adenocarcinoma of lisandra ng, stage 4, 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, stage 4, unspecified laterality (HCC) (Primary Dx) Start: 06-01-2024 ambulatory UNKNOWN PROVIDER Facili ty:[facility] Start: 06-01-2024 End: 06-01-2024 Subsequent hospital visit by physician Ct [facility] Radiology Comment on above: Adenocarcinoma of lisandra ng, stage 4, unspecified laterality (HCC) [C34.90] Start: 05-19-2024 End: 05-19-2024 Refill Joleen Jiang MD Work Phone: Hematology/Oncology Comment on above: Refill Request Start: 05-14-2024 End: 05-15-2024 ambulatory Chair 13 [facility] 2 Work Phone: Hematology/Oncology Comment on above: Encounter for antine oplastic chemotherapy (Primary Dx); Metastasis to brain (HCC); Neoplasm of lung Start: 05-14-2024 End: 05-14-2024 Office outpatient visit 15 minutes Tri Dickerson PA-C Work Phone: Hematology/Oncology Comment on above: Adenocarcinoma of lisandra ng, stage 4, unspecified laterality (HCC) (Primary Dx); Encounter for antineoplastic chemotherapy and immunotherapy; Acute maxillary sinusitis, recurrence not specified Start: 05-14-2024 End: 05-14-2024 ambulatory Lab [place] [facility] [place] [facility] Work Phone: Hematology/Oncology Comment on above: Adenocarcinoma of lisandra ng, stage 4, unspecified laterality (HCC) Start: 05-03-2024 End: 05-03-2024 Refill Joleen Jiang MD Work Phone: Hematology/Oncology Comment on above: Refill Request Start: 05-03-2024 Encounter for genera l adult medical examination without abnormal findings Martine Marrufo NP 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, stage 4, unspecified laterality (HCC) (Primary Dx) Metastasis to brain (HCC) (Primary Dx); Neoplasm of lung Start: 04-22-2024 End: 04-22-2024 ambulatory MARIELA RIVERA Facility:[facility] Start: 04-22-2024 End: 04-22-2024 Patient encounter procedure Mariela Rivera APRN.CNP Work Phone: Neurosurgery Comment on above: Metastasis to brain (HCC) (Primary Dx) Start: 04-22-2024 ambulatory UNKNOWN PROVIDER Facili ty:[facility] Start: 04-22-2024 End: 04-22-2024 Subsequent hospital visit by physician [facility] (1.5t) Radiology Comment on above: Metastasis to brain (HCC) [C79.31] Start: 04-21-2024 ambulatory UNKNOWN PROVIDER Facili ty:[facility] Start: 04-21-2024 End: 04-21-2024 Subsequent hospital visit by physician Ct [facility] Radiology Comment on above: Adenocarcinoma of lisandra ng, stage 4, unspecified laterality (HCC) [C34.90] Start: 04-20-2024 End: 04-20-2024 Refill Joleen Jiang MD Work Phone: Hematology/Oncology Comment on above: Refill Request Start: 04-05-2024 End: 04-05-2024 ambulatory Martine Marrufo NP Facility:[facility] Start: 04-02-2024 End: 04-02-2024 Office outpatient visit 25 minutes Tri Dickerson PA-C Work Phone: Hematology/Oncology Comment on above: Encounter for antine oplastic chemotherapy and immunotherapy (Primary Dx); Adenocarcinoma of lung, stage 4, unspecified laterality (HCC); Weight loss Start: 04-02-2024 End: 04-02-2024 ambulatory Lab [place] [facility] Work Phone: Hematology/Oncology Comment on above: Adenocarcinoma of lisandra ng, stage 4, unspecified laterality (HCC) Metastasis to brain (HCC) (Primary Dx); Neoplasm of lung Start: 03-12-2024 End: 03-12-2024 Patient encounter procedure [facility] Hematology/Oncology Start: 03-12-2024 End: 03-12-2024 ambulatory Lab [place] [facility] 1 Work Phone: Hematology/Oncology Comment on above: Encounter for antine oplastic chemotherapy and immunotherapy (Primary Dx); Adenocarcinoma of lung, stage 4, 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, stage 4, unspecified laterality (HCC) Metastasis to brain (HCC) (Primary Dx); Neoplasm of lung Start: 03-09-2024 Refill Mark Mcdonnell MD Work Phone: Neurology Comment on above: Refill Request Start: 03-05-2024 End: 03-05-2024 Patient encounter procedure Mark Mcdonnell MD Work Phone: Neurology Epilepsy Comment on above: Focal epilepsy (HCC) (Primary Dx) Start: 03-05-2024 End: 03-05-2024 ambulatory MARTINE MARRUFO Facility:[facility] Start: 03-02-2024 End: 03-02-2024 ambulatory Urgent (Trac) Work Phone: Hematology/Oncology Comment on above: Swelling of limb (Pr imary Dx) Start: 03-02-2024 End: 03-02-2024 Patient encounter procedure Urgent Or Weekend (Trac) Work Phone: Hematology/Oncology Start: 03-01-2024 Telephone encounter Love oates MD Work Phone: [facility] Comment on above: Care Coordination (T [facility] Appt[facility] ) Start: 02-20-2024 End: 02-20-2024 Patient encounter procedure Joleen Jiang MD Work Phone: Hematology/Oncology Start: 02-20-2024 End: 02-20-2024 ambulatory Lab [place] 1 Work Phone: Hematology/Oncology Comment on above: Adenocarcinoma of lisandra ng, stage 4, unspecified laterality (HCC) Metastasis to brain (HCC) (Primary Dx); Adenocarcinoma of lung, stage 4, unspecified laterality (HCC); Neoplasm of lung Adenocarcinoma of lisandra ng, stage 4, unspecified laterality (HCC) (Primary Dx) Start: 02-18-2024 ambulatory UNKNOWN PROVIDER Facili ty:[facility] Start: 02-18-2024 End: 02-18-2024 Subsequent hospital visit by physician Ct [facility] Radiology Comment on above: Malignant neoplasm o f unspecified part of unspecified bronchus or lung (HCC) [C34.90] Start: 02-13-2024 End: 02-13-2024 ambulatory Arleth Clay PT Jenise [facility] Physical Therapy Comment on above: At risk for lymphede ma (Primary Dx); S/P lumpectomy of breast Start: 02-09-2024 ambulatory Joleen Jiang MD Work Phone: Hematology/Oncology Comment on above: Lashell Segura Start: 02-09-2024 Telephone encounter Marta Dumont Hematology/Oncology Comment on above: Vehicle Body Builder - O ther Start: 02-03-2024 End: 02-03-2024 Office consultation new/estab patient 30 min Zeb Vale MD Work Phone: Radiation Oncology Comment on above: Malignant neoplasm o f upper-outer quadrant of right breast in female, estrogen receptor positive (HCC) Start: 02-02-2024 Telephone encounter Jessie Scott RN Work Phone: Hematology/Oncology Comment on above: Care Coordination (A ppointments.) Other [facility] Referral; Occupational therapy referral Start: 01-30-2024 Telephone encounter Jessie Scott RN Work Phone: Hematology/Oncology Comment on above: Care Coordination (E D Discharge) Start: 01-29-2024 End: 01-29-2024 ambulatory Chair [address] [place] [facility] Work Phone: Hematology/Oncology Comment on above: Metastasis to brain (HCC) (Primary Dx); Neoplasm of lung Start: 01-29-2024 End: 01-29-2024 Office outpatient visit 40 minutes Carla Payan APRN.CNP Work Phone: Hematology/Oncology Comment on above: Adenocarcinoma of lisandra ng, stage 4, unspecified laterality (HCC) (Primary Dx); Malignant neoplasm of central portion of right breast in female, estrogen receptor positive (HCC) Start: 01-29-2024 Telephone encounter Jessie Scott RN Work Phone: Hematology/Oncology Comment on above: Care Coordination (C ritical Lab Value) Start: 01-29-2024 End: 01-29-2024 ambulatory Lab [place] [facility] 1 Work Phone: Hematology/Oncology Comment on above: Neoplasm of lung (Pr imary Dx); Metastasis to brain (HCC) Start: 01-20-2024 Telephone encounter Grace sims PA-C Work Phone: Hematology/Oncology Start: 01-16-2024 End: 01-16-2024 Patient encounter procedure Grace Pastor PA-C Work Phone: [facility] Comment on above: Malignant neoplasm o f upper-outer quadrant of right breast in female, estrogen receptor positive (HCC) (Primary Dx); Postop check Start: 01-08-2024 End: 01-08-2024 Patient encounter procedure Mariela Rivera [employer].SLOT MACHINE KEY PERSON Work Phone: Neurosurgery Comment on above: Metastasis to brain (HCC) (Primary Dx) Start: 01-08-2024 End: 01-08-2024 Subsequent hospital visit by physician Mri [facility] (1.5t) Radiology Comment on above: 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] Start: 01-06-2024 End: 01-06-2024 Subsequent hospital visit by physician Injection [facility] Work Phone: Nuclear Medicine Comment on above: Malignant neoplasm o f upper-outer quadrant of right breast in female, estrogen receptor positive (HCC) [C50.411, Z17.0] Start: 01-05-2024 Telephone encounter Love oates MD Work Phone: Breast Center Comment on above: Pre-op Education Start: 12-31-2023 Telephone encounter Saba young [employer].SLOT MACHINE KEY PERSON Work Phone: Pre Anesthesia Comment on above: Preparations For Pro cedures Start: 12-29-2023 End: 12-29-2023 Subsequent hospital visit by physician Xr [facility] Work Phone: Radiology Comment on above: Pre-op evaluation [Z 01.818] Start: 12-29-2023 End: 12-29-2023 Admission to establishment [place] [id number] Work Phone: Pre Anesthesia Start: 12-29-2023 End: 12-29-2023 Anesthesia consultation [place] [id number] Work Phone: Pre Anesthesia Comment on above: Pre-op evaluation (P rimary Dx); Seizure (HCC); Vasogenic brain edema (HCC); Tobacco abuse; Neoplasm of lung; Metastasis to brain (HCC) Start: 12-29-2023 End: 12-29-2023 Preprocedural examination done [facility] 2 Work Phone: [facility] Work Phone: Start: 12-29-2023 End: 12-29-2023 Subsequent hospital visit by physician Procedure [facility] Mamm[facility] Start: 12-26-2023 ambulatory Gerda freedman MD Work Phone: Mammography Comment on above: Radiology Invasive B reast Procedure Start: 12-26-2023 Patient encounter procedure Gerda Garcia MD Work Phone: Mammography Start: 12-19-2023 Orders Only Joleen Jiang MD Work Phone: Hematology/Oncology Start: 12-18-2023 Orders Only Joleen Jiang MD Work Phone: Hematology/Oncology Comment on above: Malignant neoplasm o f unspecified part of unspecified bronchus or lung (HCC) (Primary Dx) Start: 12-16-2023 Telephone encounter Love oates MD Work Phone: General Surgery Comment on above: Appointment Start: 12-11-2023 Telephone encounter Love oates MD Work Phone: [facility] Comment on above: Patient Update Start: 12-10-2023 Admission to [facility] Joleen Jiang MD Work Phone: Hematology/Oncology Comment on above: Breast surgery Start: 12-10-2023 ambulatory Joleen Jiang MD Work Phone: [facility] Start: 12-05-2023 End: 12-05-2023 Patient encounter procedure Mark Mcdonnell MD Work Phone: Neurology Epilepsy Comment on above: Focal epilepsy (HCC) (Primary Dx); Metastasis to brain (HCC) Refill Request Start: 12-05-2023 End: 12-05-2023 ambulatory MARTINE MARRUFO Facility:[facility] Start: 12-02-2023 Telephone encounter Love oates MD Work Phone: Breast Center Comment on above: Patient Update Start: 11-27-2023 Refill Joleen Jiang MD Work Phone: Hematology/Oncology Comment on above: Refill Request Start: 11-26-2023 End: 11-26-2023 ambulatory Chair 29 [facility] 2 Work Phone: Hematology/Oncology Comment on above: Neoplasm of lung (Pr imary Dx); Metastasis to brain (HCC) Start: 11-26-2023 End: 11-26-2023 Patient encounter procedure Joleen Jiang MD Work Phone: [facility] Start: 11-26-2023 End: 11-26-2023 ambulatory Lab [place] [facility] 1 Work Phone: Hematology/Oncology Comment on above: Neoplasm of lung; Metastasis to brain (HCC) Malignant neoplasm o f unspecified part of unspecified bronchus or lung (HCC) (Primary Dx) Start: 11-26-2023 End: 11-26-2023 Subsequent hospital visit by physician Ct [facility] Work Phone: Radiology Comment on above: Malignant neoplasm o f unspecified part of unspecified bronchus or lung (HCC) [C34.90] Start: 11-17-2023 Telephone encounter Love oates MD Work Phone: Breast Center Comment on above: Vehicle 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 Builder - O ther Start: 11-14-2023 Telephone encounter Sheela Dennis RN Mammography Comment on above: Results; Appointment Start: 11-12-2023 End: 11-12-2023 Subsequent hospital visit by physician Procedure [facility] Work Phone: Mammography Comment on above: History of breast pr oblem [Z87.898] Start: 10-29-2023 End: 10-29-2023 ambulatory Lab [place] [facility] 1 Work Phone: Hematology/Oncology Comment on above: Neoplasm of lung Neoplasm of lung (Pr imary Dx); Encounter for antineoplastic chemotherapy and immunotherapy Neoplasm of lung (Pr imary Dx); Metastasis to brain (HCC) Start: 10-29-2023 End: 10-29-2023 Patient encounter procedure Jamel Pennington APRN.CNP Work Phone: [facility] Start: 10-27-2023 End: 10-27-2023 Orders Only Gerda Garica MD Work Phone: Mammography Comment on above: History of breast pr oblem (Primary Dx) Unspecified lump in unspecified breast [N63.0] Start: 10-13-2023 Refill Mark Mcdonnell MD Work Phone: Neurology Comment on above: Refill Request Start: 10-09-2023 ambulatory Jessie laurent RN Work Phone: Hematology/Oncology Comment on above: Forms Start: 10-09-2023 E-mail encounter fro m caregiver Jessie Scott RN Work Phone: [facility] Start: 10-09-2023 Telephone encounter Jessie Scott RN Work Phone: Hematology/Oncology Comment on above: Care Coordination (F orms) Start: 10-08-2023 End: 10-08-2023 amb[address] [place] [address] [place] 2 Work Phone: Hematology/Oncology Comment on above: Neoplasm of lung (Pr imary Dx); Metastasis to brain (HCC) Start: 10-08-2023 End: 10-09-2023 Patient encounter procedure Joleen Jiang MD Work Phone: [facility] Start: 10-08-2023 End: 10-09-2023 ambulatory [facility] [place] [facility] Work Phone: Hematology/Oncology Comment on above: Neoplasm of lung Malignant neoplasm o f unspecified part of unspecified bronchus or lung (HCC) (Primary Dx) Start: 10-08-2023 End: 10-08-2023 Subsequent hospital visit by physician Ct [facility] Radiology Comment on above: Intra-abdominal and pelvic swelling, mass and lump, unspecified site [R19.00] Start: 10-07-2023 Telephone encounter Marta Dumont Hematology/Oncology Start: 09-26-2023 End: 09-26-2023 Patient encounter procedure Gabino Jacob APRN.SLOT MACHINE KEY PERSON Work Phone: [facility] Comment on above: Secondary malignant neoplasm of brain (HCC) (Primary Dx); Intractable episodic cluster headache Start: 09-26-2023 End: 09-26-2023 Subsequent hospital visit by physician Mri 6 [facility] (I-Stat/1.5t/3t) Work Phone: MRI Q Comment on above: 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] Start: 09-24-2023 Documentation procedure Mammog glen Coordinator [facility] Start: 09-24-2023 Letter encounter Mammography Coordinator [place] [facility] NOT LISTED Start: 08-10-2023 Refill Katherine Le PA-C Work Phone: [facility] [id number] Comment on above: Refill Request Start: 08-08-2023 ambulatory Joleen Jiang MD Work Phone: Hematology/Oncology Comment on above: Fmla paper work Start: 08-04-2023 Telephone encounter Joleen juarez MD Work Phone: Hematology/Oncology Comment on above: Nm Pet Request Start: 08-04-2023 End: 08-04-2023 ambulatory Joleen Jiang MD Work Phone: Hematology/Oncology Comment on above: Neoplasm of lung (Pr imary Dx); Cancer of trachea, bronchus, and lung (HCC) Start: 08-04-2023 End: 08-04-2023 Patient encounter procedure Joleen Jiang MD Work Phone: [facility] Start: 07-31-2023 Telephone encounter Connor courtney MD Work Phone: [facility] Comment on above: Appointment; Patient Question Start: 07-29-2023 Chart abstracting Shirley Aguayo (Coor d) Hematology/Oncology Start: 07-28-2023 End: 07-28-2023 Patient encounter procedure Mask Placement Neus [facility] LLD Work Phone: Neurosurgery Comment on above: Secondary malignant neoplasm of brain (HCC) (Primary Dx) Start: 07-28-2023 Radiation Oncology Note Chandler patino MD Work Phone: Radiation Oncology Comment on above: Procedure Completion Note Treatment Planning Start: 07-28-2023 End: 07-28-2023 Patient encounter procedure Chandler Lieberman MD Work Phone: Radiation Oncology Comment on above: Metastasis to brain (HCC) (Primary Dx) Start: 07-28-2023 End: 07-28-2023 Subsequent hospital visit by physician [facility] Work Phone: Radiology Start: 07-28-2023 End: 07-28-2023 Evaluation and management of inpatient Mri [facility] (1.5t) Work Phone: Radiology Comment on above: 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] Start: 07-20-2023 Evaluation and management of inpatient REID Marks ELI Facility:[facility] Start: 07-19-2023 End: 07-20-2023 Emergency department patient visit KRISTY MARICRUZRADHA Facility:[facility] Start: 07-19-2023 ambulatory Sudeep Simmons MD Work Phone: Neurosurgery Comment on above: Fluent aphasia (Prim sydney Dx) Radio Gen RMP Start: 07-19-2023 Patient encounter procedure Emergency Room (Hist) [facility] Start: 07-19-2023 Telemedicine consultation with patient Sudeep Simmons MD Work Phone: [facility] Start: 05-05-2023 End: 05-05-[address] [facility] Work Phone: Start: 05-05-2023 End: 05-05-[address] [facility] Specimen Work Phone: Start: 05-05-2023 End: 05-05-2023 ambulatory Martine Marrufo SENIOR OFFICER Facility:[facility] Start: 04-23-2022 End: 04-23-[address] [facility] Work Phone: Start: 04-23-2022 End: 04-23-[address] [facility] Spec[facility] Start: 05-01-[address] [facility] Procedures Date Procedure Procedure Detail Performing Clinician Start: 03-16-2025 Blood count complete auto&auto difrntl wbc Tri Dickerson PA-C Work Phone: Start: 02-04-2025 End: 02-04-2025 Comprehensive metabolic panel Joleen Jiang MD Work Phone: Start: 02-03-2025 Mri brain brain stem w/o w/contrast material Mairela Rivera APRN.SLOT MACHINE KEY PERSON Work Phone: Start: 12-24-2024 Blood count complete auto&auto difrntl wbc Joleen Jiang MD Work Phone: Start: 11-08-2024 Blood count complete auto&auto difrntl wbc Joleen Jiang MD Work Phone: Start: 11-04-2024 Ct thorax w/o contra st material Joleen Jiang MD Work Phone: Start: 10-28-2024 Mri brain brain stem w/o w/contrast material Mariela Rivera APRN.SLOT MACHINE KEY PERSON Work Phone: Start: 10-18-2024 Blood count complete auto&auto difrntl wbc Joleen Jiang MD Work Phone: Start: 09-27-2024 Blood count complete auto&auto difrntl wbc Joleen Jiang MD Work Phone: Start: 09-07-2024 Digital breast tomos ynthesis bilateral Love Juarez MD Work Phone: Start: 09-03-2024 Blood count complete auto&auto difrntl wbc Joleen Jiang MD Work Phone: Start: 07-29-2024 Mri brain brain stem w/o w/contrast material Mariela Rivera APRN.SLOT MACHINE KEY PERSON Work Phone: Start: 07-19-2024 Comprehensive metabo lic panel Carla Payan APRN.SLOT MACHINE KEY PERSON Work Phone: Start: 06-30-2024 Blood count complete auto&auto difrntl wbc Joleen Jiang MD Work Phone: Start: 06-07-2024 Comprehensive metabo lic panel Carla Payan [employer].SLOT MACHINE KEY PERSON Work Phone: Start: 05-14-2024 Comprehensive metabo lic panel Carla Payan [employer].SLOT MACHINE KEY PERSON Work Phone: Start: 04-23-2024 Comprehensive metabo lic panel Carla Payan [employer].SLOT MACHINE KEY PERSON Work Phone: Start: 04-22-2024 Mri brain brain stem w/o w/contrast material Mariela Rivera [employer].SLOT MACHINE KEY PERSON Work Phone: Start: 04-02-2024 Comprehensive metabo lic panel Carla Payan [employer].SLOT MACHINE KEY PERSON Work Phone: Start: 03-12-2024 Comprehensive metabo lic panel Carla Kellyper [employer].SLOT MACHINE KEY PERSON Work Phone: Start: 02-20-2024 Comprehensive metabo lic panel Carla Kellyper [employer].SLOT MACHINE KEY PERSON Work Phone: Start: 01-29-2024 Blood count complete auto&auto difrntl wbc Joleen Jiang MD Work Phone: Start: 01-08-2024 Mri brain brain stem w/o w/contrast material Gabino Daphnevickie [facility] [employer] Work Phone: Start: 01-06-2024 Inj radioactive trac er for id of sentinel node Grace Pastor PA-C Work Phone: Start: 12-29-2023 Radiologic exam ches t 2 views Saba Cox [employer].SLOT MACHINE KEY PERSON Work Phone: Start: 12-29-2023 Perq breast loc puma ce placemt 1st lesio us imag Grace Pastor PA-C Work Phone: Start: 12-29-2023 Diagnostic mammograp hy computer-aided detcj uni Grace Pastor PA-C Work Phone: Start: 11-26-2023 Comprehensive metabo lic panel Joleen Jiang MD Work Phone: Start: 11-26-2023 Ct thorax w/contrast material Joleen Jiang MD Work Phone: Start: 11-26-2023 Creatinine [Mass/vol ume] in Serum or Plasma [facility] Provider Start: 11-12-2023 Diagnostic mammograp hy computer-aided detcj uni Gerda Garcia MD Work Phone: Start: 11-12-2023 Biopsy muscle percut aneous needle Gerda Garcia MD Work Phone: Start: 11-12-2023 Bx breast w/device 1 st lesion ultrasound guid Gerda Garcia MD Work Phone: Start: 10-29-2023 Comprehensive metabo lic panel Joleen Jiang MD Work Phone: Start: 10-27-2023 Us breast uni real t benedicto with image limited Martine Marrufo [employer].SLOT MACHINE KEY PERSON Work Phone: Start: 10-08-2023 Comprehensive metabo lic panel Joleen Jiang MD Work Phone: Start: 10-08-2023 Ct abdomen & pelvis w/contrast material Joleen Jiang MD Work Phone: Start: 10-08-2023 Ct thorax w/contrast material Joleen Jiang MD Work Phone: Start: 10-08-2023 Creatinine [Mass/vol ume] in Serum or Plasma [facility] Provider Start: 09-26-2023 Mri brain brain stem w/o w/contrast material Connor Servin MD Work Phone: Start: 07-28-2023 Unlisted magnetic re sonance procedure Connor Servin MD Work Phone: Start: 07-28-2023 Ct head/brain w/o co ntrast material Connor Servin MD Work Phone: Start: 07-20-2023 Antibody screen [facility] Comment on above: Order Comment: Speci men Type: BLOOD SPECIMENOrdering Facility: [facility] Address: [address] [place] [address] Performed By: #### T SCR ####CC MAIN BLOOD BANKCLIA [id number] [address] Plan of Treatment Date Care Activity Detail Author Start: 03-16-2028 Diabetes Screening Diabetes Screenin g [facility] Start: 02-05-2028 Diabetes Screening Diabetes Screenin g [facility] Start: 12-25-2027 Diabetes Screening Diabetes Screenin g [facility] Start: 11-09-2027 Diabetes Screening Diabetes Screenin g [facility] Start: 10-18-2027 Diabetes Screening Diabetes Screenin g [facility] Start: 09-27-2027 Diabetes Screening Diabetes Screenin g [facility] Start: 09-03-2027 Diabetes Screening Diabetes Screenin g [facility] Start: 07-19-2027 Diabetes Screening Diabetes Screenin g [facility] Start: 06-30-2027 Diabetes Screening Diabetes Screenin g [facility] Start: 06-07-2027 Diabetes Screening Diabetes Screenin g [facility] Start: 05-14-2027 Diabetes Screening Diabetes Screenin g [facility] Start: 04-23-2027 Diabetes Screening Diabetes Screenin g [facility] Start: 04-02-2027 Diabetes Screening Diabetes Screenin g [facility] Start: 03-12-2027 Diabetes Screening Diabetes Screenin g [facility] Start: 02-19-2027 Diabetes Screening Diabetes Screenin g [facility] Start: 01-28-2027 Diabetes Screening Diabetes Screenin g [facility] Start: 11-25-2026 Diabetes Screening Diabetes Screenin g [facility] Start: 10-28-2026 Diabetes Screening Diabetes Screenin g [facility] Start: 10-08-2026 Diabetes Screening Diabetes Screenin g [facility] Start: 09-16-2026 Diabetes Screening Diabetes Screenin g [facility] Start: 07-20-2026 Diabetes Screening Diabetes Screenin g [facility] Start: 07-19-2026 Diabetes Screening Diabetes Screenin g [facility] Start: 09-07-2025 Screening for malign ant neoplasm of breast Mammogram Screening [facility] Start: 06-10-2025 End: 06-10-2025 Patient encounter procedure 06/10/2025 9:40 AM EDT Office Visit Neurology Epilepsy [address] [place], [place] [id number] Mark Mcdonnell MD [address] [place] [address] 6 month follow-up Neurology Epilepsy Comment on above: 6 month follow-up Start: 05-12-2025 End: 05-12-2025 Patient encounter procedure Radiology Comment on above: Metastasis to brain (HCC) [C79.31] 3 month follow up (M RI prior) Start: 05-02-2025 End: 05-02-2025 ambulatory 05/02/2025 10:45 AM EDT Infusion Center Hematology/Oncology [address] [place] [address] C34.90 Hematology/Oncology Comment on above: C34.90 Start: 05-02-2025 End: 05-02-2025 ambulatory 05/02/2025 8:30 AM EDT Visit (SP) Office Hematology/Oncology [address] [place] [address] [place] [address] [place] [address] [email or web address] Hematology/Oncology Comment on above: [email or web address] Start: 05-02-2025 End: 05-02-2025 ambulatory 05/02/2025 7:20 AM EDT Infusion Center Hematology/Oncology [address] [place] [address] tx labs Hematology/Oncology Comment on above: tx labs Start: 04-29-2025 End: 03-06-2026 CT Chest WO contrast CT CHEST WO IVCON Radiology Routine Adenocarcinoma of lung, stage 4, unspecified laterality (HCC) Expected: 04/29/2025 (Approximate), Expires: 03/06/2026 [facility] Comment on above: Expected: 04/29/2025 (Approximate), Expires: 03/06/2026 Start: 04-29-2025 End: 07-29-2025 Thyrotropin [Units/volume] in Serum or Plasma THYROID STIMULATING HORMONE Lab Routine Adenocarcinoma of lung, stage 4, unspecified laterality (HCC) Encounter for antineoplastic immunotherapy Expected: 04/29/2025, Expires: 07/29/2025 [facility] Comment on above: Expected: 04/29/2025 , Expires: 07/29/2025 Start: 04-25-2025 Influenza vaccination [facility] Start: 04-22-2025 End: 04-22-2025 Patient encounter procedure 04/22/2025 2:00 PM EDT Appointment Radiology [address] [place] [address] [C34.90] CT CHEST Radiology Comment on above: [C34.90] CT CHEST Start: 03-18-2025 End: 03-18-2025 ambulatory 03/18/2025 12:15 PM EDT Infusion Center Hematology/Oncology [address] [place] [address] C34.90 Hematology/Oncology Comment on above: C34.90 Start: 03-18-2025 End: 03-18-2025 ambulatory Hematology/Oncology Comment on above: tx labs [email or web address] Start: 03-16-2025 End: 03-16-2025 ambulatory 03/16/2025 12:15 PM EDT Infusion Center Hematology/Oncology [address] [place] [address] C34.90 Hematology/Oncology Comment on above: C34.90 Start: 03-16-2025 End: 03-16-2025 ambulatory Hematology/Oncology Comment on above: tx labs [email or web address] Start: 02-04-2025 End: 02-04-2025 ambulatory Hematology/Oncology Comment on above: tx labs C34.90 Start: 02-04-2025 End: 02-04-2025 Patient encounter procedure 02/04/2025 10:15 AM EDT Office Visit [facility] [address] [place] [address] [place] [address] [place] [address] follou up 6 months [facility] Comment on above: follou up 6 months Start: 02-03-2025 End: 02-03-2025 Patient encounter procedure Radiology Comment on above: *WITH PERFUSION* Met astasis to brain (HCC) [C79.31] 3 month follow up (M RI prior) Start: 02-02-2025 End: 02-02-2025 ambulatory 02/02/2025 12:15 PM EDT Infusion Center Hematology/Oncology [address] [place] [address] C34.90 Hematology/Oncology Comment on above: C34.90 Start: 02-02-2025 End: 02-02-2025 ambulatory Hematology/Oncology Comment on above: tx labs C34.90 Start: 01-31-2025 End: 01-31-2025 Patient encounter procedure 01/31/2025 3:30 PM EDT Appointment Radiology [address] [place] [address] C34.90 Radiology Comment on above: C34.90 Start: 01-31-2025 End: 12-08-2025 CT Chest WO contrast [facility] Work Phone: Comment on above: Expected: 01/31/2025 , Expires: 12/08/2025 Start: 01-02-2025 Urine microalbumin profile DTaP,Tdap,Td Vaccine (2 - Td or Tdap) [facility] Start: 12-24-2024 End: 12-24-2024 ambulatory Hematology/Oncology Comment on above: tx labs C34.90 Start: 12-22-2024 End: 12-22-2024 ambulatory 12/22/2024 12:15 PM EDT Infusion Center Hematology/Oncology [address] [place] [address] C34.90 Hematology/Oncology Comment on above: C34.90 Start: 12-22-2024 End: 12-22-2024 ambulatory Hematology/Oncology Comment on above: tx labs C34.90 Start: 11-24-2024 End: 11-24-2024 Patient encounter procedure 11/24/2024 10:00 AM EDT Office Visit Neurology Epilepsy [address] [place] [address] Mark Mcdonnell MD [address] [place] [address] follow up Neurology Epilepsy Comment on above: follow up Start: 11-08-2024 End: 10-27-2025 CT Chest WO contrast CT CHEST WO IVCON Radiology Routine Adenocarcinoma of lung, stage 4, unspecified laterality (HCC) Expected: 11/08/2024, Expires: 10/27/2025 [facility] Work Phone: Comment on above: Expected: 11/08/2024 , Expires: 10/27/2025 Start: 11-08-2024 End: 11-08-2024 ambulatory Hematology/Oncology Comment on above: labs C34.90 Start: 11-04-2024 End: 11-04-2024 Patient encounter procedure 11/04/2024 9:00 AM EDT Appointment Radiology [address] [place] [address] C34.90 Radiology Comment on above: C34.90 Start: 10-28-2024 End: 10-28-2024 Patient encounter procedure Radiology Comment on above: WITH PERFUSION; 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; 3 mo f/up 3 month follow up (M RI prior) Start: 10-18-2024 End: 10-18-2024 ambulatory 10/18/2024 2:15 PM [facility] Infusion Center Hematology/Oncology [address] [place] [address] C34.90 Hematology/Oncology Comment on above: C34.90 Start: 10-18-2024 End: 10-18-2024 ambulatory Hematology/Oncology Comment on above: tx labs C34.90 Start: 10-15-2024 End: 10-15-2024 ambulatory Hematology/Oncology Comment on above: tx labs C34.90 Start: 10-11-2024 End: 10-11-2024 ambulatory Hematology/Oncology Comment on above: labs C34.90 Start: 09-27-2024 End: 09-27-2024 ambulatory Hematology/Oncology Comment on above: tx labs C34.90 Start: 09-23-2024 End: 09-23-2024 ambulatory 09/23/2024 3:15 PM [facility] Infusion Center Hematology/Oncology [address] [place] [address] C34.90 Hematology/Oncology Comment on above: C34.90 Start: 09-23-2024 Screening for malign ant neoplasm of breast Mammogram Screening [facility] Start: 09-23-2024 End: 09-23-2024 ambulatory Hematology/Oncology Comment on above: tx labs C34.90 Start: 09-20-2024 End: 09-20-2024 ambulatory Hematology/Oncology Comment on above: labs C34.90 Start: 09-09-2024 End: 09-09-2024 Patient encounter procedure 09/09/2024 9:00 AM EST Office Visit Neurology Epilepsy [address] [place] [address] Mark Mcdonnell MD [address] [place] [address] 6 month fu Neurology Epilepsy Comment on above: 6 month fu Start: 09-07-2024 End: 09-07-2024 Patient encounter procedure 09/07/2024 9:20 AM EST Appointment Mammography [address] [place], [place] [id number] S/P lumpectomy, right breast [Z98.890] Mammography Comment on above: S/P lumpectomy, righ t breast [Z98.890] Start: 09-03-2024 End: 09-03-2024 ambulatory Hematology/Oncology Comment on above: C34.90 Start: 09-03-2024 End: 09-03-2024 ambulatory 09/03/2024 1:20 PM EST [facility] Hematology/Oncology [address] [place] [address] labs Hematology/Oncology Comment on above: labs Start: 08-31-2024 End: 08-31-2024 ambulatory Hematology/Oncology Comment on above: labs C34.90 Start: 08-26-2024 End: 08-26-2024 Patient encounter procedure 08/26/2024 4:00 PM EST Appointment Radiology [address] [place] [address] CT CHEST WO IVCON Radiology Comment on above: CT CHEST WO IVCON Start: 08-09-2024 End: 08-09-2024 ambulatory Hematology/Oncology Comment on above: labs C34.90 Start: 07-29-2024 End: 07-29-2024 Patient encounter procedure Neurosurgery Comment on above: 3 month follow up (M RI prior) Start: 07-29-2024 End: 07-29-2024 Patient encounter procedure 07/29/2024 10:40 AM EST Appointment Radiology [address] [place] [address] Metastasis to brain (HCC) [C79.31] Radiology Comment on above: Metastasis to brain (HCC) [C79.31] Start: 07-23-2024 End: 07-23-2024 Patient encounter procedure 07/23/2024 10:00 AM EST Office Visit [facility] [address] [place] [address] [place] [address] [place] [address] follou up 6 months [facility] Comment on above: follou up 6 months Start: 07-19-2024 End: 07-19-2024 ambulatory Hematology/Oncology Comment on above: labs C34.90 Start: 06-30-2024 End: 06-30-2024 ambulatory Hematology/Oncology Comment on above: labs C34.90 Start: 06-07-2024 End: 06-07-2024 ambulatory 06/07/2024 12:15 PM EDT Infusion Center Hematology/Oncology [address] [place] [address] C34.90 Hematology/Oncology Comment on above: C34.90 Start: 06-07-2024 End: 06-07-2024 ambulatory Hematology/Oncology Comment on above: tx labs C34.90 Start: 06-01-2024 End: 06-01-2024 Patient encounter procedure 06/01/2024 4:00 PM EDT Appointment Radiology [address] [place] [address] C34.90 Radiology Comment on above: C34.90 Start: 05-14-2024 End: 05-14-2024 ambulatory 05/14/2024 2:15 PM EDT Infusion Center Hematology/Oncology [address] [place] [address] C34.90 Hematology/Oncology Comment on above: C34.90 Start: 05-14-2024 End: 05-14-2024 ambulatory Hematology/Oncology Comment on above: tx labs C34.90 Start: 04-25-2024 Influenza vaccination [facility] Start: 04-23-2024 End: 04-23-2024 ambulatory Hematology/Oncology Comment on above: tx labs C34.90 Start: 04-22-2024 End: 04-22-2024 Patient encounter procedure Radiology Comment on above: Metastasis to brain (HCC) [C79.31] follow up after MRI Start: 04-21-2024 End: 04-21-2024 Patient encounter procedure 04/21/2024 4:00 PM EDT Appointment Radiology [address] [place] [address] C34.90 Radiology Comment on above: C34.90 Start: 04-02-2024 End: 04-02-2024 ambulatory 04/02/2024 11:45 AM EDT [facility] Hematology/Oncology [address] [place] [address] C34.90 Hematology/Oncology Comment on above: C34.90 Start: 04-02-2024 End: 04-02-2024 ambulatory [facility] Physical Therapy Comment on above: S/P lumpectomy of br east [Z98.890] tx labs C34.90 Start: 03-12-2024 End: 03-12-2024 ambulatory 03/12/2024 10:15 AM EDT [facility] Hematology/Oncology [address] [place] [address] C34.90 Hematology/Oncology Comment on above: C34.90 Start: 03-12-2024 End: 03-12-2024 ambulatory Hematology/Oncology Comment on above: labs *JAMEL PENN[place] TO SEE* LAB- F/U & TRX Start: 03-05-2024 End: 03-05-2024 Patient encounter procedure 03/05/2024 10:40 AM EDT Office Visit Neurology Epilepsy [address] [place] [address] Mark Mcdonnell MD [address] [place], [place] [id number] 3 month follow-up Neurology Epilepsy Comment on above: 3 month follow-up Start: 02-20-2024 End: 02-20-2024 ambulatory Hematology/Oncology Comment on above: labs C34.90 Start: 02-18-2024 End: 02-18-2024 Patient encounter procedure 02/18/2024 3:30 PM EDT Appointment Radiology [address] [place] [address] C34.90 Radiology Comment on above: C34.90 Start: 02-13-2024 End: 02-13-2024 ambulatory 02/13/2024 11:00 AM EDT OT/PT/Speech Visit [facility] Physical Therapy [address] [place] [address] Arleth Clay, PT S/P lumpectomy of breast [Z98.890] [facility] Physical Therapy Comment on above: S/P lumpectomy of br east [Z98.890] Start: 02-03-2024 End: 02-03-2024 Patient encounter procedure 02/03/2024 9:00 AM EDT Office Visit Radiation Oncology [address] [place] [id number] [place] [address] [place] [address] Consult post op Malignant neoplasm of upper-outer quadrant of right breast in female, estrogen r... Radiation Oncology Comment on above: Consult post op Allison gnant neoplasm of upper-outer quadrant of right breast in female, estrogen r... Start: 01-29-2024 End: 01-29-2024 ambulatory 01/29/2024 3:15 PM EDT [facility] Hematology/Oncology [id number] [place] [address] a keytrjoshua, 2 hours Hematology/Oncology Comment on above: a keytruda, 2 hours Start: 01-29-2024 End: 01-29-2024 Follow-up encounter 01/29/2024 2:30 PM EDT Visit (SP) Office Hematology/Oncology [address] [place] [address] Carla Payan APRN.SLOT MACHINE KEY PERSON [address] [place], [place] follow up Hematology/Oncology Comment on above: follow up Start: 01-29-2024 End: 01-29-2024 ambulatory 01/29/2024 1:20 PM EDT [facility] Hematology/Oncology [address] [place] [address] labs Hematology/Oncology Comment on above: labs Start: 01-16-2024 End: 01-16-2024 Patient encounter procedure 01/16/2024 10:00 AM EDT Office Visit [facility] [address] [place] [address] Grace Pastor PA-C [address] [phone] post op DOS 01/05 [facility] Comment on above: post op DOS 01/05 Start: 01-08-2024 End: 01-08-2024 Patient encounter procedure Radiology Comment on above: GKRS TREATMENT Start: 01-06-2024 End: 01-06-2024 Admission to same day surgery center Ambulatory Surgery Comment on above: MASTECTOMY PARTIAL Start: 01-06-2024 End: 01-06-2024 Bx/exc lymph node open deep axillary node [facility] Start: 01-06-2024 End: 01-06-2024 Exc breast les preop plmt rad marker open 1 les [facility] Start: 01-06-2024 End: 01-06-2024 Intraop sentinel lymph node id w/dye injection [facility] Start: 01-06-2024 End: 01-06-2024 Mastectomy partial [facility] Start: 01-06-2024 Subsequent hospital visit by physician Ambulatory Surgery Comment on above: Malignant neoplasm o f upper-outer quadrant of right breast in female, estrogen receptor positive (HCC) [C50.411, Z17.0] Start: 01-06-2024 End: 01-06-2024 Admission to same day surgery center Ambulatory Surgery Comment on above: MASTECTOMY PARTIAL Start: 01-06-2024 End: 01-06-2024 Bx/exc lymph node open deep axillary node [facility] Start: 01-06-2024 End: 01-06-2024 Exc breast les preop plmt rad marker open [address] [facility] Start: 01-06-2024 End: 01-06-2024 Intraop sentinel lymph node id w/dye injection [facility] Start: 01-06-2024 End: 01-06-[address] [facility] Start: 01-06-2024 End: 01-06-2024 Patient encounter procedure 01/06/2024 7:30 AM EDT Appointment Nuclear Medicine [address] [place] [address] [place] injection Nuclear Medicine Comment on above: [place] injection Start: 01-06-2024 Subsequent hospital visit by physician Ambulatory Surgery Comment on above: Malignant neoplasm o f upper-outer quadrant of right breast in female, estrogen receptor positive (HCC) [C50.411, Z17.0] Start: 12-29-2023 End: 12-29-2023 Anesthesia consultation 12/29/2023 11:50 AM EDT PAT Pre Anesthesia [address] [place] [address] 2, [place] [address] [place] [address] Lumpectomy, Dr. Juarez Pre Anesthesia Comment on above: LumpectomyDr. 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 Start: 11-26-2023 End: 11-13-2024 CT Chest W contrast IV CT CHEST W IVCON Radiology Routine Malignant neoplasm of unspecified part of unspecified bronchus or lung (HCC) Expected: 11/26/2023, Expires: 11/13/2024 [facility] Work Phone: Comment on above: Expected: 11/26/2023 , Expires: 11/13/2024 Start: 10-29-2023 End: 01-28-2024 Thyrotropin [Units/volume] in Serum or Plasma TSH BLD Lab Routine Neoplasm of lung Metastasis to brain (HCC) Expected: 10/29/2023, Expires: 01/28/2024 [facility] Work Phone: Comment on above: Expected: 10/29/2023 , Expires: 01/28/2024 Start: 08-25-2023 Behavioral Health Screening Behavioral Health Screening [facility] Start: 08-25-2023 Depression Assessment Depression Ass essment [facility] Start: 04-25-2023 Covid-19 Vaccine () Covid-19 Vaccine () [facility] Start: 04-25-2023 Influenza vaccination Influenza Vacc ine (#1) [facility] Start: 08-25-2022 Depression Assessment Depression Ass essment [facility] Start: 09-18-2021 Covid-19 Vaccine (3 - Pfizer risk series) Covid-19 Vaccine (3 - Pfizer risk series) [facility] Start: 2018 Shingrix Vaccine (1 of 2) Shingrix Vaccine (1 of 2) [facility] Start: 2013 Cologuard (FIT-DNA) Cologuard (FIT-D NA) [facility] Start: 2013 Colonoscopy Colonoscopy [facility] Start: 2013 Colorectal Cancer Screening Colorectal Cancer Screening [facility] Start: [address] Colonography [facility] Start: 2013 Fecal Occult Blood Fecal Occult Bloo d [facility] Start: 2013 Lipid 1996 panel - Serum or Plasma Lipid Screening [facility] Start: 2013 Lipid panel [facility] Start: 2013 Screening for malign ant neoplasm of colon [facility] Start: 2013 [facility]oidoscopy [facility] Start: 2008 Mammography Mammogram Screening [facility] Start: 2008 Screening for malign ant neoplasm of breast Mammogram Screening [facility] Start: 1998 HPV Testing HPV Testing [facility] Start: 1998 Screening for malign ant neoplasm of cervix HPV Testing [facility] Start: 1989 Pap Testing Pap Testing [facility] Start: 1989 Screening for malign ant neoplasm of cervix Pap Testing [facility] Start: 1987 Hepatitis B Vaccine (1 of 3 - 19+ 3-dose series) Hepatitis B Vaccine (1 of 3 - 19+ 3-dose series) [facility] Start: 1987 Pneumococcal Vaccine : 50+ (1 of 2 - PCV) Pneumococcal Vaccine: 50+ (1 of 2 - PCV) [facility] Start: 1987 Shingrix Vaccine (1 of 2) Shingrix Vaccine (1 of 2) [facility] Start: 1986 Anxiety Screening Anxiety Screening [facility] Start: 1986 Depression Screening Depression Scre ening [facility] Start: 1986 Hepatitis C Screening Hepatitis C [facility] Start: 1986 Hepatitis C screening Hepatitis C [facility] Start: 1986 HIV Screening HIV Screening [facility] Start: 1986 HIV screening HIV Screening [facility] Start: 1979 Screening for malign ant neoplasm of cervix Cervical Cancer Screening [facility] Start: 1974 Pneumococcal vaccination [facility] Start: 1968 Hepatitis B Vaccine (1 of 3 - 3-dose series) Hepatitis B Vaccine (1 of 3 - 3-dose series) [facility] End: 08-04-2024 CBC W Auto Differential panel - Blood ABS GRAN CT + CBC Lab STAT Neoplasm of lung Every 3 weeks for 6 Occurrences starting 08/04/2023 until 08/04/2024 [facility] Work Phone: Comment on above: Every 3 weeks for 6 Occurrences starting 08/04/2023 until 08/04/2024 End: 01-28-2025 CBC W Auto Differential panel - Blood ABS GRAN CT + CBC Lab STAT Adenocarcinoma of lung, stage 4, unspecified laterality (HCC) Every 3 weeks for 100 Occurrences starting 01/29/2024 until 01/28/2025 [facility] Work Phone: Comment on above: Every 3 weeks for 10 0 Occurrences starting 01/29/2024 until 01/28/2025 End: 12-24-2024 CBC W Auto Differential panel - Blood COMPLETE BLOOD COUNT AND DIFFERENTIAL Lab STAT Adenocarcinoma of lung, stage 4, unspecified laterality (HCC) Every 3 weeks for 6 Occurrences starting 06/07/2024 until 12/24/2024 [facility] Work Phone: Comment on above: Every 3 weeks for 6 Occurrences starting 06/07/2024 until 12/24/2024 End: 02-04-2026 CBC W Auto Differential panel - Blood COMPLETE BLOOD COUNT AND DIFFERENTIAL Lab Routine Adenocarcinoma of lung, stage 4, unspecified laterality (HCC) Every 6 weeks for 2 Occurrences starting 02/04/2025 until 02/04/2026, 1 completed [facility] Work Phone: Comment on above: Every 6 weeks for 2 Occurrences starting 02/04/2025 until 02/04/2026, 1 completed End: 02-20-2024 Comprehensive metabolic 2000 panel - Serum or Plasma COMP METABOLIC PANEL Lab STAT Neoplasm of lung Every 3 weeks for 6 Occurrences starting 08/04/2023 until 02/20/2024 [facility] Work Phone: Comment on above: Every 3 weeks for 6 Occurrences starting 08/04/2023 until 02/20/2024 End: 01-28-2025 Comprehensive metabolic 2000 panel - Serum or Plasma COMPREHENSIVE METABOLIC PANEL Lab STAT Adenocarcinoma of lung, stage 4, unspecified laterality (HCC) Every 3 weeks for 100 Occurrences starting 01/29/2024 until 01/28/2025 [facility] Comment on above: Every 3 weeks for 10 0 Occurrences starting 01/29/2024 until 01/28/2025 End: 12-24-2024 Comprehensive metabolic 2000 panel - Serum or Plasma COMPREHENSIVE METABOLIC PANEL Lab STAT Adenocarcinoma of lung, stage 4, unspecified laterality (HCC) Every 3 weeks for 6 Occurrences starting 06/07/2024 until 12/24/2024 [facility] Comment on above: Every 3 weeks for 6 Occurrences starting 06/07/2024 until 12/24/2024 End: 02-04-2026 Comprehensive metabolic 2000 panel - Serum or Plasma COMPREHENSIVE METABOLIC PANEL Lab Routine Adenocarcinoma of lung, stage 4, unspecified laterality (HCC) Every 6 weeks for 2 Occurrences starting 02/04/2025 until 02/04/2026 [facility] Comment on above: Every 6 weeks for 2 Occurrences starting 02/04/2025 until 02/04/2026 CT Chest WO contrast CT CHEST WO IVCON Radiology Routine Malignant neoplasm of unspecified part of unspecified bronchus or lung (HCC) 02/18/2024 3:37 PM EDT [facility] Work Phone: End: 03-21-2025 CT Chest WO contrast CT CHEST WO IVCON Radiology Routine Adenocarcinoma of lung, stage 4, unspecified laterality (HCC) 1 Occurrences starting 02/20/2024 until 03/21/2025 [facility] Work Phone: Comment on above: 1 Occurrences starti ng 02/20/2024 until 03/21/2025 CT Chest WO contrast CT CHEST WO IVCON Radiology Routine Adenocarcinoma of lung, stage 4, unspecified laterality (HCC) 04/21/2024 3:53 PM EDT [facility] Work Phone: End: 05-23-2025 CT Chest WO contrast CT CHEST WO IVCON Radiology Routine Adenocarcinoma of lung, stage 4, unspecified laterality (HCC) 1 Occurrences starting 04/23/2024 until 05/23/2025 [facility] Work Phone: Comment on above: 1 Occurrences starti ng 04/23/2024 until 05/23/2025 CT Chest WO contrast CT CHEST WO IVCON Radiology Routine Adenocarcinoma of lung, stage 4, unspecified laterality (HCC) 06/01/2024 4:05 PM EDT [facility] Work Phone: End: 07-07-2025 CT Chest WO contrast CT CHEST WO IVCON Radiology Routine Adenocarcinoma of lung, stage 4, unspecified laterality (HCC) 1 Occurrences starting 06/07/2024 until 07/07/2025 [facility] Comment on above: 1 Occurrences starti ng 06/07/2024 until 07/07/2025 CT Chest WO contrast CT CHEST WO IVCON Radiology Routine Adenocarcinoma of lung, stage 4, unspecified laterality (HCC) 08/26/2024 4:06 PM [facility] Work Phone: End: 08-22-2025 MG Breast - bilateral Diagnostic CATHY DIAGNOSTIC BILATERAL Radiology Routine S/P lumpectomy, right breast 1 Occurrences starting 07/23/2024 until 08/22/2025 [facility] Work Phone: Comment on above: 1 Occurrences starti ng 07/23/2024 until 08/22/2025 End: 02-06-2025 MR Brain WO and W contrast IV MRI BRAIN WO/W IVCON Radiology Routine Metastasis to brain (HCC) 1 Occurrences starting 01/08/2024 until 02/06/2025 [facility] Work Phone: Comment on above: 1 Occurrences starti ng 01/08/2024 until 02/06/2025 End: 05-22-2025 MR Brain WO and W contrast IV MRI BRAIN WO/W IVCON Radiology Routine Metastasis to brain (HCC) 1 Occurrences starting 04/22/2024 until 05/22/2025 [facility] Work Phone: Comment on above: 1 Occurrences starti ng 04/22/2024 until 05/22/2025 End: 08-28-2025 MR Brain WO and W contrast IV MRI BRAIN WO/W IVCON Radiology Routine Metastasis to brain (HCC) 1 Occurrences starting 07/29/2024 until 08/28/2025 [facility] Work Phone: Comment on above: 1 Occurrences starti ng 07/29/2024 until 08/28/2025 End: 11-27-2025 MR Brain WO and W contrast IV MRI BRAIN WO/W IVCON Radiology Routine Metastasis to brain (HCC) 1 Occurrences starting 10/28/2024 until 11/27/2025 [facility] Work Phone: Comment on above: 1 Occurrences starti ng 10/28/2024 until 11/27/2025 End: 03-05-2026 MR Brain WO and W contrast IV MRI BRAIN WO/W IVCON Radiology Routine Metastasis to brain (HCC) 1 Occurrences starting 02/03/2025 until 03/05/2026 [facility] Work Phone: Comment on above: 1 Occurrences starti ng 02/03/2025 until 03/05/2026 End: 10-25-2024 Mri brain brain stem w/o w/contrast material MRI BRAIN WO/W IVCON Radiology Routine Secondary malignant neoplasm of brain (HCC) 1 Occurrences starting 09/26/2023 until 10/25/2024 [facility] Work Phone: Comment on above: 1 Occurrences starti ng 09/26/2023 until 10/25/2024 End: 09-02-[address] attenuation skull base mid-thigh NM PET/CT SKULL-THIGH INITIAL Radiology Routine Neoplasm of lung 1 Occurrences starting 08/04/2023 until 09/02/2024 [facility] Work Phone: Comment on above: 1 Occurrences starti ng 08/04/2023 until 09/02/2024 SURGICAL PATHOLOGY [facility] Work Phone: Comment on above: Release Upon Orderin g for 1 Occurrences starting 11/12/2023, 1 completed End: 01-28-2025 Thyrotropin [Units/volume] in Serum or Plasma THYROID STIMULATING HORMONE Lab STAT Adenocarcinoma of lung, stage 4, unspecified laterality (HCC) Every 3 weeks for 100 Occurrences starting 01/29/2024 until 01/28/2025 [facility] Comment on above: Every 3 weeks for 10 0 Occurrences starting 01/29/2024 until 01/28/2025 End: 01-28-2025 Thyroxine (T4) free [Mass/volume] in Serum or Plasma T4 FREE/FREE THYROXINE Lab STAT Adenocarcinoma of lung, stage 4, unspecified laterality (HCC) Every 3 weeks for 100 Occurrences starting 01/29/2024 until 01/28/2025 [facility] Comment on above: Every 3 weeks for 10 0 Occurrences starting 01/29/2024 until 01/28/2025 End: 11-25-2024 US Guidance for biopsy of Breast - right US BIOPSY BREAST RIGHT Radiology Routine History of breast problem 1 Occurrences starting 10/27/2023 until 11/25/2024 [facility] Work Phone: Comment on above: 1 Occurrences starti ng 10/27/2023 until 11/25/2024 End: 11-25-2024 US Guidance for superficial biopsy of Lymph node US BIOPSY AXILLA RIGHT Radiology Routine History of breast problem 1 Occurrences starting 10/27/2023 until 11/25/2024 [facility] Work Phone: Comment on above: 1 Occurrences starti ng 10/27/2023 until 11/25/2024 US Lower extremity veins - bilateral US LEG VEIN DVT [facility] Vascular Lab STAT Swelling of limb 03/02/2024 10:24 AM EDT [facility] Work Phone: End: 01-28-2025 XR Chest PA and Lateral XR CHEST 2V FRONTAL/LAT Radiology Routine Pre-op evaluation Seizure (HCC) Vasogenic brain edema (HCC) Tobacco abuse Neoplasm of lung 1 Occurrences starting 12/29/2023 until 01/28/2025 [facility] Work Phone: Comment on above: 1 Occurrences starti ng 12/29/2023 until 01/28/2025 XR Chest PA and Lateral XR CHEST 2V FRONTAL/LAT Radiology Routine Pre-op evaluation Seizure (HCC) Vasogenic brain edema (HCC) Tobacco abuse Neoplasm of lung 12/29/2023 12:46 PM EDT [facility] Immunizations Immunization Date Immunization Notes Care Provider Cristian gross 01-02-2015 tetanus toxoid, redu nori diphtheria toxoid, and acellular pertussis vaccine, adsorbed Chandler Lieberman MD Work Phone: [facility] Payers Date Payer Category Payer Self-pay [id number] 2022 Private Health Insurance MMO [employer] PPO [id number] 2022 Unknown [id number] 2014 Unknown [id number] Unknown [id number] Unknown [id number] Social History Date Type Detail Facility Start: 04-23-2022 Tobacco smoking stat [facility] Unknown if ever smoked [facility] Start: 1970 Sex Assigned At Female W [facility] [place] Start: 08-25-1981 End: 07-23-2024 Tobacco smoking status INIS Smokes tobacco daily [facility] Start: 08-25-1983 End: 08-25-2023 History of tobacco use Cigarette Smoker [facility] Start: 07-19-2023 End: 07-24-2023 Cigarettes smoked current (pack per day) - Reported 1 [facility] Start: 07-19-2023 End: 02-04-2025 Alcohol intake Current drinker of alcohol (finding) [facility] Start: 07-20-2023 End: 07-24-2023 Tobacco use panel [facility] National Score (1-100), lower number is lower risk 55 [facility] Start: 07-19-2023 Alcohol Comment Occassionally [facility] Start: 1970 Sex Assigned At Not on file C [facility] Start: 11-21-2023 End: 12-05-2023 Tobacco smoking status NHIS Ex-smoker [facility] End: 08-25-2023 History of tobacco use Current smoker [facility] History of tobacco use Passive smoker [facility] Start: 12-29-2023 End: 07-23-2024 Tobacco use and exposure Smokeless tobacco non-user [facility] Start: 12-29-2023 Tobacco Comment 2cigs/day [facility] Start: 12-29-2023 Alcohol Comment social [facility] Medical Equipment Procedure Code Equipment Code Equipment Origin al Text Equipment Identifier Dates Us Halina Botello [id number] Start: 12-29-2023 Comment on above: Description: Halina renteria reflector Functional Status Date Assessment Result Facility 07-23-2023 Are you deaf, or do you have serious difficulty hearing No 07/23/2023 3:41 PM Dorina Bell RN No [facility] 07-23-2023 Are you blind, or do you have serious difficulty seeing, even when wearing glasses No 07/23/2023 3:41 PM Dorina Bell, EFRAIN No [facility] 07-23-2023 Do you have serious difficulty walking or climbing stairs No 07/23/2023 3:41 PM Dorina Bell RN [facility] 07-23-2023 Do you have difficul ty dressing or bathing No 07/23/2023 3:41 PM Dorina Bell RN [facility] 07-23-2023 Because of a physica l, mental, or emotional condition, do you have difficulty doing errands alone such as visiting a physician's office or shopping No 07/23/2023 3:41 PM Dorina Bell RN [facility] Mental Status Date Assessment Result Facility 07-23-2023 Because of a physica l, mental, or emotional condition, do you have serious difficulty concentrating, remembering, or making decisions No 07/23/2023 3:41 PM Dorina Bell, EFRAIN [facility] Clinical Notes 07-19-2023 to 03-16-2025 Aviva Fox LPN - 03/16/2025 12:04 PM Joleen Gardner MD - 03/16/2025 11:30 AM Tri Louis PA-C - 02/04/2025 3:00 PM Aviva Owens LPN - 02/04/2025 2:49 PM EDT Note Date & Type Note [facility] 03-16-2025 Note [facility] 03-16-2025 History of Present illness Narrative Additional intake questions: Has the patient had fever, nausea, vomiting, diarrhea, constipation, fatigue for > 1 week? No Does the patient have a decreased appetite? No Does patient want to see a Wind Farm Operations Manager? No (yes to any of above refer patient to schedulers for dietitian appointment) ) Does patient have any new or increased numbness or tingling of extremities? Yes, hands and feet Is patient interested in fertility information? No Does patient need any prescription refills? No Does patient have an advanced directive in place? No, Patient referred to Resource Center Images from the original note were not included. [facility] ESTABLISHED PATIENT VISIT Department of Hematology and Medical Oncology Thoracic Oncology Physician Slurry Man Established Patient Visit DATE OF SERVICE: 03/16/2025 Portions of this encounter note have been copied from my previous note dated, 02/04/25, which has been updated where appropriate and all reflect current medical decision making from today, 03/16/2025 ATTENDING PHYSICIAN: Dr. Jiang DIAGNOSIS: [id number] stage SUE lung adenocarcinoma. BIOMARKERS: Interval molecular data have demonstrated PD-L1 99%, KRAS G12C+; Previous TREATMENT: GKRS to brain mets 07/28/23 [id number] 08/10/2023- 10/29/23 Pemetrexed + Pembrolizumab q3w 11/26/23-10/18/24 Current Treatment: Pembrolizumab q6w 11/08/24 - present INTERVAL HISTORY: Ms. Segura is a 54 year old female who presents for routine management of metastatic lung adenocarcinoma. She states she is overall doing well. Drinking plenty of fluids. Denies any new breathing difficulties, chest pain, nausea, vomiting or diarrhea. Denies any skin rashes or joint pains. The remainder of the review of systems is negative. REVIEW OF SYSTEMS: The remainder of the review of systems is negative. Medications: buPROPion SR (WELLBUTRIN SR) 150 mg 12 hr tablet^Take 1 tablet by mouth two times a day.^Disp: 60 tablet^Rfl: 2 methocarbamol (ROBAXIN) 500 mg tablet^Take 1 tablet by mouth three times a day as needed (Muscular pain and spasm).^Disp: 15 tablet^Rfl: 0 albuterol HFA (PROVENTIL HFA, VENTOLIN HFA) 90 mcg/actuation inhaler^Inhale 2 puffs as instructed every 6 hours as needed for wheezing/shortness of breath.^Disp: 8.5 g^Rfl: 1 prochlorperazine (COMPAZINE) 10 mg tablet^Take 1 tablet by mouth every 4 hours as needed.^Disp: 30 tablet^Rfl: 1 lacosamide (VIMPAT) 150 mg tab^Take 1 tablet by mouth two times a day for 180 days.^Disp: 180 tablet^Rfl: 1 folic acid 1 mg tablet^Take 1 tablet by mouth once daily.^Disp: 30 tablet^Rfl: 5 furosemide (LASIX) 20 mg tablet^Take 1 tablet by mouth once daily.^Disp: 30 tablet^Rfl: 1 albuterol sulfate 90 mcg/actuation breath activated powder inhaler^Inhale 1 Puff as instructed every 6 hours as needed for wheezing/shortness of breath.^Disp: 1 Each^Rfl: 2 lidocaine (SALONPAS) 4 % patch^Apply 1 Patch as directed once daily.^Disp: 10 Patch^Rfl: 0 pyridoxine, vitamin B6, (VITAMIN B6) 100 mg tablet^Take 1 tablet by mouth once daily.^Disp: 90 tablet^Rfl: 3 OLANZapine (ZYPREXA) 5 mg tablet^TAKE 1 TABLET BY MOUTH ONCE DAILY AT BEDTIME. start on the day OF chemotherapy and TAKE for 5 (FIVE) nights^Disp: 30 tablet^Rfl: 1 ondansetron (ZOFRAN) 8 mg tablet^Take 1 tablet by mouth every 8 hours as needed for nausea/vomiting.^Disp: 30 tablet^Rfl: 3 famotidine (PEPCID) 20 mg tablet^Take 1 tablet by mouth two times a day.^Disp: 40 tablet^Rfl: 0 varenicline (CHANTIX) 1 mg tablet^Take 1 tablet by mouth two times a day with meals.^Disp: 60 tablet^Rfl: 1 ibuprofen (MOTRIN) 200 mg tablet^Take 200 mg by mouth every 6 hours as needed for pain.^Disp: ^Rfl: loperamide (IMODIUM A-D) 2 mg cap(s)^Take 1 capsule by mouth four times a day as needed.^Disp: 30 capsule^Rfl: [address] (PROTONIX) 40 mg tablet^Take 1 tablet by mouth daily at 6 am.^Disp: 30 tablet^Rfl: 0 acetaminophen (TYLENOL) 325 mg tablet^2 tablets by ORAL/FEEDING TUBE route every 4 hours as needed for pain.^Disp: ^Rfl: atorvastatin (LIPITOR) 40 mg tablet^Take 40 mg by mouth once daily.^Disp: ^Rfl: DULoxetine (CYMBALTA) 60 mg capsule^Take 60 mg by mouth once daily.^Disp: ^Rfl: Allergies: ALLERGIES Allergen Reactions Eggs [Egg] Hives Latex Hives Penicillins Hives PAST MEDICAL HISTORY Diagnosis Date Brain tumor (HCC) Epilepsy (HCC) Lung cancer (HCC) Social History Tobacco Use Smoking status: Every Day Current packs/day: 0.00 Average packs/day: 1 pack/day for 42.0 years (42.0 ttl pk-yrs) Types: Cigarettes Start date: 08/25/1981 Last attempt to quit: 08/25/2023 Years since quittin.5 Passive exposure: Current Smokeless tobacco: Never Tobacco comments: 2cigs/day Vaping Use Vaping status: Never Used Substance Use Topics Alcohol use: Yes Comment: social Drug use: Not Currently Problem List: ACTIVE PROBLEM LIST Adenocarcinoma of Lung, Stage 4 (Hcc) - 09/27/2024 S/P Lumpectomy of Breast - 02/13/2024 Neoplasm of Lung - 08/04/2023 Lung Mass - 07/21/2023 Breast Nodule - 07/21/2023 Tobacco Abuse - 07/21/2023 Vasogenic Brain Edema (Hcc) - 07/21/2023 At Risk for Lymphedema - 07/21/2023 Seizure (Hcc) - 07/21/2023 Metastasis to Brain (Hcc) - 07/20/2023 PHYSICAL EXAM: Vitals BP 122/83 Pulse 88 Temp 36.6 C (97.8 F) (Temporal) Resp 20 Wt 79.5 kg (175 lb 4.3 oz) LMP 05/25/2016 SpO2 100% BMI 30.08 kg/m ECOG PERFORMANCE STATUS: 0- Fully active, able to carry on all pre-disease performance w/o restriction. Physical Exam Vitals and nursing note reviewed. Constitutional: General: She is not in acute distress. Appearance: Normal appearance. She is not ill-appearing or toxic-appearing. HENT: Head: Normocephalic and atraumatic. Right Ear: External ear normal. Left Ear: External ear normal. Nose: Nose normal. Mouth/Throat: Mouth: Mucous membranes are moist. Eyes: General: Right eye: No discharge. Left eye: No discharge. Cardiovascular: Rate and Rhythm: Normal rate and regular rhythm. Heart sounds: Normal heart sounds. Pulmonary: Effort: Pulmonary effort is normal. No respiratory distress. Breath sounds: Normal breath sounds. No stridor. No wheezing, rhonchi or rales. Abdominal: General: Abdomen is flat. Tenderness: There is no abdominal tenderness. There is no guarding or rebound. Musculoskeletal: General: Normal range of motion. Cervical back: Normal range of motion. Skin: General: Skin is warm and dry. Neurological: General: No focal deficit present. Mental Status: She is alert and oriented to person, place, and time. Psychiatric: Mood and Affect: Mood normal. Behavior: Behavior normal. Thought Content: Thought content normal. Judgment: Judgment normal. Laboratory Data WBC (k/uL) Date Value 03/16/2025 5.98 RBC (m/uL) Date Value 03/16/2025 4.13 Hemoglobin (g/dL) Date Value 03/16/2025 13.5 Hematocrit (%) Date Value 03/16/2025 38.4 MCV (fL) Date Value 03/16/2025 93.0 MCH (pg) Date Value 03/16/2025 32.7 MCHC (g/dL) Date Value 03/16/2025 35.2 RDW-CV (%) Date Value 03/16/2025 12.3 Platelet Count (k/uL) Date Value 03/16/2025 236 MPV (fL) Date Value 03/16/2025 8.8 (L) Neutrophils % (%) Date Value 03/16/2025 42.6 Lymphocytes % (%) Date Value 03/16/2025 46.7 Monocytes % (%) Date Value 03/16/2025 5.5 Eosinophils % (%) Date Value 03/16/2025 4.3 Basophils % (%) Date Value 03/16/2025 0.7 Abs Neut (k/uL) Date Value 03/16/2025 2.55 Abs Johnston (k/uL) Date Value 03/16/2025 0.33 Abs Eosin (k/uL) Date Value 03/16/2025 0.26 Abs Baso (k/uL) Date Value 03/16/2025 0.04 Glucose (mg/dL) Date Value 03/16/2025 159 (H) BUN (mg/dL) Date Value 03/16/2025 12 Creatinine (mg/dL) Date Value 03/16/2025 0.79 Sodium (mmol/L) Date Value 03/16/2025 141 Potassium (mmol/L) Date Value 03/16/2025 3.9 Chloride (mmol/L) Date Value 03/16/2025 107 CO2 (mmol/L) Date Value 03/16/2025 23 Protein, Total (g/dL) Date Value 03/16/2025 7.1 Albumin (g/dL) Date Value 03/16/2025 4.3 Calcium, Total (mg/dL) Date Value 03/16/2025 9.3 Alkaline Phosphatase (U/L) Date Value 03/16/2025 108 Bilirubin, Total (mg/dL) Date Value 03/16/2025 0.3 AST (U/L) Date Value 03/16/2025 23 ALT (U/L) Date Value 03/16/2025 21 No results found for: CEA No results found for: [id number] TSH (mIU/L) Date Value 02/04/2025 0.905 12/24/2024 1.800 11/08/2024 0.985 Imaging: Last CT/CTA Chest/Lungs CT CHEST WO IVCON Exam End: 01/31/2025 3:43 PM (Final result) Narrative: * * *Final Report* * * DATE OF EXAM: Jan 31 2025 3:43PM [facility] [place] CHEST [place] IVCON / PROCEDURE REASON: C34.90-Adenocarcinoma of lung, stage 4, unspecified laterality (HCC) * * * * Physician Interpretation * * * * EXAMINATION: CHEST CT WITHOUT CONTRAST CLINICAL HISTORY: Adenocarcinoma of lung, stage IV. Technique: Spiral CT acquisition of the chest from the thoracic inlet to the upper abdomen without contrast. MQ: [id number] CT Radiation dose: Integrated Dose-length product (DLP) for this visit = 318 mGy*cm CT Dose Reduction Employed: Automated exposure control(AEC) and iterative recon Comparison: CT chest 11/04/2024-04/21/2024 RESULT: Limitations: None. Lines, tubes, and devices: None. Lung parenchyma and airways: The central airways are patent. Centrilobular emphysematous changes greatest within the apices. Narrowing of the lingular bronchus at site of prior mass although no longer measurable. Downstream posterior left upper lobe postobstructive subsegmental atelectasis and associated bronchiectasis similar to multiple prior studies although improved from 2022. Multiple bilateral pulmonary nodules, for example: * 7 x 6 mm inferior right upper lobe groundglass nodule (301:104), stable. * 9 x 10 mm inferior right upper lobe groundglass nodule along the minor fissure (301:111), stable. * 19 x 18 mm anterior right lower lobe groundglass nodule (301:30), stable. * 8 x 6 mm posterior right lower lobe groundglass nodule (301:29), stable. * 12 x 8 mm right lower lobe groundglass nodule, previously 10 x 8 mm. * 8 x 5 mm posteromedial right lower lobe groundglass nodule (301:61), previously 5 x 5 mm. Pleural space: No pleural effusion. No pleural thickening. Lower neck, lymph nodes, and mediastinum: The imaged thyroid gland is normal. No lymphadenopathy in the supraclavicular, axillary, mediastinal, or hilar regions. Heart, pericardium, and thoracic vessels: The thoracic aorta and main pulmonary artery are normal in caliber. The cardiac chambers are normal in size. No coronary artery atherosclerotic calcifications are noted, although the study is not optimized for coronary assessment. Stable, trace pericardial effusion. Bones and soft tissues: Osseous degenerative changes with stable T11 vertebral body compression deformity. No suspicious osseous lesions. The chest wall is unremarkable. Upper abdomen: No acute abnormality in the imaged upper abdomen. Localizer images: No additional findings. Impression: IMPRESSION: Stable narrowing of the lingular bronchus and postobstructive atelectasis at site of mass seen on [address] without measurable mass. Stable to minimally increased size of multiple groundglass nodules. No new suspicious pulmonary nodules or thoracic lymphadenopathy. Breakfast Cook: EVGENY Transcribe Date/Time: Feb 07 2025 8:08A Dictated by : CLIFFORD CA MD This examination was interpreted and the report reviewed and electronically signed by: CLIFFORD CA MD on Feb 07 2025 9:45AM EST ASSESSMENT/PLAN: #[id number] stage SUE lung adenocarcinoma. - continue maintenance pembrolizumab. Will complete two years 07/2025 - repeat scans before next cycle #Rib pain on left side Chronic, TTP left ribs, had to stop tylenol due to liver derangement and with elevated renal function today hold off on NSAIDs - continue oxycodone and robaxin PRN #Elevated serum creatinine - resolved Creatinine back at baseline today Patient seen and discussed with Dr. Jiang. Radha Brooks MD Hematology/Oncology Fellow PGY5 I was physically present during the lucero components of care and personally participated in the management of the patient. I have reviewed the progress note documented by the resident/fellow and agree with the documented findings and plan of care. documented in this encounter [facility] 03-16-2025 Note [facility] 02-04-2025 History of Present illness Narrative Images from the original note were not included. [facility] ESTABLISHED PATIENT VISIT Department of Hematology and Medical Oncology Thoracic Oncology Physician Slurry Man Established Patient Visit DATE OF SERVICE: 02/04/2025 Portions of this encounter note have been copied from my previous note dated, 12/24/24, which has been updated where appropriate and all reflect current medical decision making from today, 02/04/2025 ATTENDING PHYSICIAN: Dr. Jiang DIAGNOSIS: [id number] stage SUE lung adenocarcinoma. BIOMARKERS: Interval molecular data have demonstrated PD-L1 99%, KRAS G12C+; Previous TREATMENT: GKRS to brain mets 07/28/23 [id number] 08/10/2023- 10/29/23 Pemetrexed + Pembrolizumab q3w 11/26/23-10/18/24 Current Treatment: Pembrolizumab q6w 11/08/24 - present INTERVAL HISTORY: Ms. Segura is a 54 year old female who presents for routine management of metastatic lung adenocarcinoma. She states she is overall doing well. Drinking plenty of fluids. Denies any new breathing difficulties, chest pain, nausea, vomiting or diarrhea. Denies any skin rashes or joint pains. The remainder of the review of systems is negative. REVIEW OF SYSTEMS: The remainder of the review of systems is negative. Medications: oxyCODONE IR (ROXICODONE) 5 mg immediate release tablet Take 1 tablet by mouth every 8 hours as needed for pain for up to 5 days. methocarbamol (ROBAXIN) 500 mg tablet Take 1 tablet by mouth three times a day as needed (Muscular pain and spasm). iv contrast (will be provided with radiology test) MRI Brain Inject, intravenously, once for 1 dose.No IV access, insert saline lock prior to beginning of sedation, infusion, injection of imaging exam.Discontinue saline lock post exam. If Pt. has a central line or IVAD, may access for administration according to line specific nursing protocol.Once exam is complete flush line and de-access according to line specific nursing protocol in the MR contrast administration guidelines link albuterol HFA (PROVENTIL HFA, VENTOLIN HFA) 90 mcg/actuation inhaler Inhale 2 puffs as instructed every 6 hours as needed for wheezing/shortness of breath. prochlorperazine (COMPAZINE) 10 mg tablet Take 1 tablet by mouth every 4 hours as needed. buPROPion SR (WELLBUTRIN SR) 150 mg 12 hr tablet Take 1 tablet by mouth two times a day. lacosamide (VIMPAT) 150 mg tab Take 1 tablet by mouth two times a day for 180 days. folic acid 1 mg tablet Take 1 tablet by mouth once daily. (Patient not taking: Reported on 02/04/2025) furosemide (LASIX) 20 mg tablet Take 1 tablet by mouth once daily. albuterol sulfate 90 mcg/actuation breath activated powder inhaler Inhale 1 Puff as instructed every 6 hours as needed for wheezing/shortness of breath. lidocaine (SALONPAS) 4 % patch Apply 1 Patch as directed once daily. pyridoxine, vitamin B6, (VITAMIN B6) 100 mg tablet Take 1 tablet by mouth once daily. OLANZapine (ZYPREXA) 5 mg tablet TAKE 1 TABLET BY MOUTH ONCE DAILY AT BEDTIME. start on the day OF chemotherapy and TAKE for 5 (FIVE) nights ondansetron (ZOFRAN) 8 mg tablet Take 1 tablet by mouth every 8 hours as needed for nausea/vomiting. famotidine (PEPCID) 20 mg tablet Take 1 tablet by mouth two times a day. varenicline (CHANTIX) 1 mg tablet Take 1 tablet by mouth two times a day with meals. ibuprofen (MOTRIN) 200 mg tablet Take 200 mg by mouth every 6 hours as needed for pain. loperamide (IMODIUM A-D) 2 mg cap(s) Take 1 capsule by mouth four times a day as needed. pantoprazole DR (PROTONIX) 40 mg tablet Take 1 tablet by mouth daily at 6 am. acetaminophen (TYLENOL) 325 mg tablet 2 tablets by ORAL/FEEDING TUBE route every 4 hours as needed for pain. atorvastatin (LIPITOR) 40 mg tablet Take 40 mg by mouth once daily. DULoxetine (CYMBALTA) 60 mg capsule Take 60 mg by mouth once daily. Allergies: ALLERGIES Allergen Reactions Eggs [Egg] Hives Latex Hives Penicillins Hives PAST MEDICAL HISTORY Diagnosis Date Brain tumor (HCC) Epilepsy (HCC) Lung cancer (HCC) Social History Tobacco Use Smoking status: Every Day Current packs/day: 0.00 Average packs/day: 1 pack/day for 42.0 years (42.0 ttl pk-yrs) Types: Cigarettes Start date: 08/25/1981 Last attempt to quit: 08/25/2023 Years since quittin.4 Passive exposure: Current Smokeless tobacco: Never Tobacco comments: 2cigs/day Vaping Use Vaping status: Never Used Substance Use Topics Alcohol use: Yes Comment: social Drug use: Not Currently Problem List: ACTIVE PROBLEM LIST Adenocarcinoma of Lung, Stage 4 (Hcc) - 09/27/2024 S/P Lumpectomy of Breast - 02/13/2024 Neoplasm of Lung - 08/04/2023 Lung Mass - 07/21/2023 Breast Nodule - 07/21/2023 Tobacco Abuse - 07/21/2023 Vasogenic Brain Edema (Hcc) - 07/21/2023 At Risk for Lymphedema - 07/21/2023 Seizure (Hcc) - 07/21/2023 Metastasis to Brain (Hcc) - 07/20/2023 PHYSICAL EXAM: Vitals BP 115/73 Pulse 93 Temp 36.6 C (97.8 F) (Temporal) Resp 20 Wt 80.4 kg (177 lb 4 oz) LMP 05/25/2016 SpO2 99% BMI 30.42 kg/m ECOG PERFORMANCE STATUS: 0- Fully active, able to carry on all pre-disease performance w/o restriction. Physical Exam Vitals and nursing note reviewed. Constitutional: General: She is not in acute distress. Appearance: Normal appearance. She is not ill-appearing or toxic-appearing. HENT: Head: Normocephalic and atraumatic. Right Ear: External ear normal. Left Ear: External ear normal. Nose: Nose normal. Mouth/Throat: Mouth: Mucous membranes are moist. Eyes: General: Right eye: No discharge. Left eye: No discharge. Cardiovascular: Rate and Rhythm: Normal rate and regular rhythm. Heart sounds: Normal heart sounds. Pulmonary: Effort: Pulmonary effort is normal. No respiratory distress. Breath sounds: Normal breath sounds. No stridor. No wheezing, rhonchi or rales. Abdominal: General: Abdomen is flat. Tenderness: There is no abdominal tenderness. There is no guarding or rebound. Musculoskeletal: General: Normal range of motion. Cervical back: Normal range of motion. Skin: General: Skin is warm and dry. Neurological: General: No focal deficit present. Mental Status: She is alert and oriented to person, place, and time. Psychiatric: Mood and Affect: Mood normal. Behavior: Behavior normal. Thought Content: Thought content normal. Judgment: Judgment normal. Laboratory Data WBC (k/uL) Date Value 12/24/2024 7.76 RBC (m/uL) Date Value 12/24/2024 4.28 Hemoglobin (g/dL) Date Value 12/24/2024 14.3 Hematocrit (%) Date Value 12/24/2024 41.3 MCV (fL) Date Value 12/24/2024 96.5 MCH (pg) Date Value 12/24/2024 33.4 MCHC (g/dL) Date Value 12/24/2024 34.6 RDW-CV (%) Date Value 12/24/2024 12.1 Platelet Count (k/uL) Date Value 12/24/2024 239 MPV (fL) Date Value 12/24/2024 8.4 (L) Neutrophils % (%) Date Value 12/24/2024 47.6 Lymphocytes % (%) Date Value 12/24/2024 40.7 Monocytes % (%) Date Value 12/24/2024 7.3 Eosinophils % (%) Date Value 12/24/2024 3.2 Basophils % (%) Date Value 12/24/2024 0.9 Abs Neut (k/uL) Date Value 12/24/2024 3.69 Abs Johnston (k/uL) Date Value 12/24/2024 0.57 Abs Eosin (k/uL) Date Value 12/24/2024 0.25 Abs Baso (k/uL) Date Value 12/24/2024 0.07 Glucose (mg/dL) Date Value 02/04/2025 84 BUN (mg/dL) Date Value 02/04/2025 17 Creatinine (mg/dL) Date Value 02/04/2025 1.10 (H) Sodium (mmol/L) Date Value 02/04/2025 140 Potassium (mmol/L) Date Value 02/04/2025 4.0 Chloride (mmol/L) Date Value 02/04/2025 105 CO2 (mmol/L) Date Value 02/04/2025 24 Protein, Total (g/dL) Date Value 02/04/2025 7.1 Albumin (g/dL) Date Value 02/04/2025 4.3 Calcium, Total (mg/dL) Date Value 02/04/2025 9.4 Alkaline Phosphatase (U/L) Date Value 02/04/2025 114 Bilirubin, Total (mg/dL) Date Value 02/04/2025 0.3 AST (U/L) Date Value 02/04/2025 26 ALT (U/L) Date Value 02/04/2025 21 No results found for: CEA No results found for: [id number] TSH (mIU/L) Date Value 02/04/2025 0.905 12/24/2024 1.800 11/08/2024 0.985 Imaging: Last CT/CTA Chest/Lungs CT CHEST WO IVCON Exam End: 01/31/2025 3:43 PM (In process) ASSESSMENT/PLAN: Ms. Segura is a 54 year old female with metastatic adenocarcinoma. She presents today for routine monitoring and consideration for next cycle of therapy. (C34.90) Adenocarcinoma of lung, stage 4, unspecified laterality (HCC) (primary encounter diagnosis) (Z51.12) Encounter for antineoplastic immunotherapy Comment: Labs reviewed and adequate for treatment. Slight elevation in creatinine today. Otherwise WNL/baseline. CT scans obtained yesterday, report not complete however on personal interpretation no significant marked changes on my interpretation. Will discuss with Dr. Conklin when he returns. Plan: # Proceed with next cycle of maintenance pembrolizumab monotherapy # Smartset placed for subsequent visit and follow-up CT scan in 12 weeks with follow-up with Dr. Jiang, orders as follows COMPLETE BLOOD COUNT AND DIFFERENTIAL, COMPREHENSIVE METABOLIC PANEL, THYROID STIMULATING HORMONE, CT CHEST WO IVCON, oxyCODONE IR (ROXICODONE) 5 mg immediate release tablet (R07.81) Rib pain on left side Comment: Chronic, TTP left ribs, had to stop tylenol due to liver derangement and with elevated renal function today hold off on NSAIDs Plan: # oxyCODONE IR (ROXICODONE) 5 mg immediate release tablet - second line # Robaxin (methocarbamol) 500 mg - first line (R79.89) Elevated serum creatinine Comment: BUN/Cr 17/1.10 today compared to last cycle 20/0.84 - mild elevation from baseline however which is around 0.9 Plan: # 500 cc IVF bolus in treatment today # Continue drinking plenty of fluids # Continue to monitor at next cycle I spent a total of 30 minutes on the date of the service which included preparing to see the patient, [id number] patient care, completing clinical documentation, obtaining and/or reviewing separately obtained history, performing a medically appropriate examination, counseling and educating the patient/family/caregiver, ordering medications, tests, or procedures, communicating with other HCPs (not separately reported), independently interpreting results (not separately reported), communicating results to the patient/family/caregiver, and care coordination (not separately reported). Tri Dickerson PA-C [facility] [place] [facility] Additional intake questions: Has the patient had fever, nausea, vomiting, diarrhea, constipation, fatigue for > 1 week? Yes, fatigue Does the patient have a decreased appetite? No Does patient want to see a Wind Farm Operations Manager? No (yes to any of above refer patient to schedulers for dietitian appointment) ) Does patient have any new or increased numbness or tingling of extremities? Yes, hands and feet Is patient interested in fertility information? No Does patient need any prescription refills? No Does patient have an advanced directive in place? No, Patient referred to Resource [facility] documented in this encounter [facility] 02-04-2025 Note [facility] 02-04-2025 Note [facility] 02-04-2025 Instructions Love Juarez MD - 02/04/2025 10:45 AM EDT Lashell Segura Thank you for coming to see us today! I am so glad to see you are doing well. As we discussed today, since you are doing so well from a surgical perspective, we will let Dr. Jiang take the lead in terms of your ongoing cancer care and breast screening/surveillance. Breast health recommendations continue to include routine breast self awareness, annual clinical breast exams with Medical Oncology and/or primary care team, annual mammography, minimal alcohol use and 150 min of aerobic exercise per week as your heart/lungs/joints allow. We will always be on your team, and are happy to see you any time with any surgical breast questions or concerns. Love Juarez MD Care team: MD Grace Araiza MSPAS PA-C Janet Neptune, RN, BSN, CN-BN Elizabeth Linares MA Contact numbers: [facility] Breast Team Office Number: [phone] Nurse / clinical questions: [phone] Fax number: [phone] Night/weekends/holidays: [phone] and ask for the Breast Surgeon Core Fitter As you are aware, Patients First is the guiding principle of your Breast Health Team at [facility]. We strive to provide outstanding care and service, supported by our values: Quality and Safety, [place], Teamwork, Empathy, Inclusion and Integrity. If you feel you received outstanding care / service and feel supported by our values, please take a few moments to submit your comments online at [employer] or ask for a card to submit to the Caregiver [facility] box. Thank you for your time in recognizing those who cared for you during your journey with your breast health team. documented in this encounter [facility] 02-04-2025 Note [facility] 02-04-2025 History of Present illness Narrative Breast Surgery Follow Up Visit Original surgery date: 12/2023 Procedure: Right lumpectomy with SLNB Diagnosis/Stage: Cancer Staging Neoplasm of lung Staging form: Lung, AJCC 8th Edition - Clinical: Stage SUE (cT2b, cN3, pM1b) - Signed by Joleen Jiang MD on 08/05/2023 Breast cancer [id number] Oncologist: Dr. Jiang Chemotherapy: None for breast CA Radiation: N/A Endocrine therapy: N/a in light of lung CA dx Interval history: No new medical problems. No breast complaints other than R sided tenderness. No masses, skin changes, nipple d/c. Last mammogram: 08/2024 ROS GENERAL: No weight loss, malaise or fevers. HEENT: Negative for frequent or significant headaches, Negative for changes in hearing, vision or dizziness, Negative for nose bleeds, Negative for difficulty swallowing or hoarsness RESPIRATORY: Negative for cough, hemoptysis, wheezing or shortness of breath CARDIOVASCULAR: Negative for chest pain, leg swelling or palpitations. GI: No nausea, vomiting, diarrhea, constipation, hematochezia, melena, or abdominal pain : No history of dysuria, hematuria, frequency or incontinence. SKIN: Negative for lesions, rash, and itching NEURO: No history of headaches, syncope, paralysis, seizures or tremors LYMPH: No LAD ENDO: No DM Exam Ambulatory, NAD Sclera anicteric Resp unlabored No arm swelling The sensitive examination was discussed with the Patient or Patient's Authorized Special Needs Tutor. As applicable, any other physician, advance practice provider, medical student, or other health professional student that will be observing or involved in the sensitive examination for educational or training purposes was discussed with the Patient or Authorized Special Needs Tutor. The Patient or Authorized Special Needs Tutor has agreed to proceed with the sensitive examination. (Sensitive examination includes inspection and/or palpation of the breasts, pelvis, prostate and anorectal regions) Right breast: Well healed incision, no pathology Left breast: Neg No supraclavicular or axillary lymphadenopathy Consutlants notes reviewed Most recent imaging reviewed IMPRESSION: There is no mammographic evidence of malignancy. 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 Expected postoperative appearance is noted. This will serve as the patient's new baseline exam following surgery. Annual mammographic evaluation is recommended or sooner if clinically indicated. The patient was informed of the findings and recommendations. Return to annual screening mammogram is recommended. BI-RADS Category 2: Benign Interpreting Radiologist: Andrae Loza M.D. FACR, FS Electronically signed on: 09/07/2024 Assessment 54 year old year old female with history of right breast cancer doing well after lumpectomy. Ongoing mgmt of metastatic lung cancer. Plan: Cont to advise -Monthly self exams -Annual clinical exams -Annual mammography - due -Oncologic follow up as planned Surgical follow up Love Juarez MD documented in this encounter [facility] 02-03-2025 Note [facility] 02-03-2025 History of Present illness Narrative Images from the original note were not included. [facility] [place] [facility] NEURO-ONCOLOGY OUTPATIENT NOTE PURPOSE OF VISIT: Ongoing patient management CHIEF COMPLAINT : Brain met MEDICAL DECISION MAKING Assessment & Plan 1. 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 - All questions were answered. Portions of this note have been copied and updated appropriately. I spent a total of 35 minutes on the date of the service which included preparing to see the patient, [id number] patient care, completing clinical documentation, obtaining and/or reviewing separately obtained history, performing a medically appropriate examination, counseling and educating the patient/family/caregiver, ordering medications, tests, or procedures, communicating with other HCPs (not separately reported), independently interpreting results (not separately reported), communicating results to the patient/family/caregiver, and care coordination (not separately reported). Mariela Rivera APRN.SLOT MACHINE KEY PERSON cc: Connor Servin MD & Joleen Jiang MD & Mark Mcdonnell MD - [facility] Subjective HISTORY OF PRESENT ILLNESS: Lashell Segura is a pleasant 54 year old year old left-handed female being seen for evaluation of previously diagnosed lung adenocarcinoma. 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 She is s/p GKRS by Dr. Connor Servin and Dr. Chandler Lieberman on 07/28/23 to 1) Left temporal. Primary cancer site : Lung Primary oncologist : Dr. Joleen Jiang Current systemic treatment : Pembrolizumab Current steroids : None Interval history: 01/08/24 Presents today with her daughter for follow-up with a new MRI brain scan for review. Reports some shakiness in both hands. She is following driving restrictions. 04/22/24 Presents today unaccompanied for follow-up with a new MRI brain scan for review. Since last visit, she has started taking Lasix for swelling in legs (improved). Has been trying to limit amount of Tylenol that she is taking for headaches/body aches. 07/29/24 Presents today unaccompanied for follow-up with a new MRI brain scan for review. Leg swelling is now constant (previously it was transient); still taking Lasix and wearing compression stockings. No new neurologic symptoms for concerns. 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 10/28/24 Presents today unaccompanied for follow-up with a new MRI brain scan for review. Since last visit, no new neurologic symptoms or concerns. No recent seizures. Leg swelling has improved since beginning Lasix. 02/03/25 Presents today unaccompanied for follow-up with a new MRI brain scan for review. No new neurologic symptoms since last visit. She is still feeling exhausted most of the time from systemic therapy. Remains on Lasix which is managing leg swelling. No recent seizures and reports compliance with ASM. Social History Tobacco Use Smoking status: Every Day Current packs/day: 0.00 Average packs/day: 1 pack/day for 42.0 years (42.0 ttl pk-yrs) Types: Cigarettes Start date: 08/25/1981 Last attempt to quit: 08/25/2023 Years since quittin.4 Passive exposure: Current Smokeless tobacco: Never Tobacco comments: 2cigs/day Vaping Use Vaping status: Never Used Substance Use Topics Alcohol use: Yes Comment: social Drug use: Not Currently PAST MEDICAL HISTORY Diagnosis Date Brain tumor (HCC) Epilepsy (HCC) Lung cancer (HCC) FAMILY HISTORY Problem Relation Age of Onset Systemic Lupus Erythematosus Mother Lung Cancer Mother COPD Father Diabetes Maternal Grandmother Diabetes Paternal Grandmother Colon Cancer Paternal Grandfather Anesthesia Problems No Family History Current Outpatient Medications Medication Sig albuterol HFA (PROVENTIL HFA, VENTOLIN HFA) 90 mcg/actuation inhaler Inhale 2 puffs as instructed every 6 hours as needed for wheezing/shortness of breath. prochlorperazine (COMPAZINE) 10 mg tablet Take 1 tablet by mouth every 4 hours as needed. buPROPion SR (WELLBUTRIN SR) 150 mg 12 hr tablet Take 1 tablet by mouth two times a day. lacosamide (VIMPAT) 150 mg tab Take 1 tablet by mouth two times a day for 180 days. folic acid 1 mg tablet Take 1 tablet by mouth once daily. furosemide (LASIX) 20 mg tablet Take 1 tablet by mouth once daily. albuterol sulfate 90 mcg/actuation breath activated powder inhaler Inhale 1 Puff as instructed every 6 hours as needed for wheezing/shortness of breath. lidocaine (SALONPAS) 4 % patch Apply 1 Patch as directed once daily. pyridoxine, vitamin B6, (VITAMIN B6) 100 mg tablet Take 1 tablet by mouth once daily. OLANZapine (ZYPREXA) 5 mg tablet TAKE 1 TABLET BY MOUTH ONCE DAILY AT BEDTIME. start on the day OF chemotherapy and TAKE for 5 (FIVE) nights ondansetron (ZOFRAN) 8 mg tablet Take 1 tablet by mouth every 8 hours as needed for nausea/vomiting. famotidine (PEPCID) 20 mg tablet Take 1 tablet by mouth two times a day. varenicline (CHANTIX) 1 mg tablet Take 1 tablet by mouth two times a day with meals. ibuprofen (MOTRIN) 200 mg tablet Take 200 mg by mouth every 6 hours as needed for pain. loperamide (IMODIUM A-D) 2 mg cap(s) Take 1 capsule by mouth four times a day as needed. pantoprazole DR (PROTONIX) 40 mg tablet Take 1 tablet by mouth daily at 6 am. acetaminophen (TYLENOL) 325 mg tablet 2 tablets by ORAL/FEEDING TUBE route every 4 hours as needed for pain. atorvastatin (LIPITOR) 40 mg tablet Take 40 mg by mouth once daily. DULoxetine (CYMBALTA) 60 mg capsule Take 60 mg by mouth once daily. No current facility-administered medications for this visit. REVIEW OF SYSTEMS : Neurological : + Complaint of headaches, chronic (uses Tylenol prn as above) No complaint of tinnitus No complaint of decreased hearing No complaint of diplopia + Complaints of blurred vision. No complaint of vision loss + Complaint of arm/leg numbness or tingling, hands/feet No problem with limb coordination or imbalance No complaint of syncope or LOC or falls + Complaint of tremor/shakiness, as above + Complaint of dizziness/vertigo, transient + Complaint of seizures, as above, [facility], last in Jun 2023 (on Vimpat) No complaints of memory changes, confusion, or disorientation. Objective PHYSICAL EXAMINATION: BP 140/84 Pulse 84 Resp 16 Ht 162.6 cm (5' 4) Wt 81.8 kg (180 lb 5.4 oz) LMP 05/25/2016 SpO2 99% BMI 30.95 kg/m General appearance: Well appearing, alert, in no acute distress, well-hydrated, well nourished. NEUROLOGICAL EXAM: Higher integrative functions: Oriented to person, place & time. Attention Span and Concentration: Good. Language: Good comprehension. Fund of Knowledge: Good. 2nd CN: Full visual adam. 3rd,4th,6th CN: Pupils (=), round, react to light, full extraocular movements. 5th CN: No decrease in facial sensation 7th CN: Facial muscles symmetric and strong. 8th CN: Hears finger rub well bilaterally. 9th CN: + Gag not tested 10th CN: Spontaneous palate movement, full and symmetric. 11th CN: Full strength in shoulder shrug. 12th CN: Tongue protrusion full and midline. Sensation: No decrease in sensation in upper or lower limbs to touch. Musculoskeletal: Able to stand and ambulate independently with steady gait. Motor: 5/5, R=L, UE=LE. Coordination: Rapid alternating movements fast and smooth all limbs. IMAGING STUDIES: MRI BRAIN WO/W IVCON IMPRESSION: Stable MRI of the brain compared to 07/29/2024 without evidence of new or progressive intracranial metastatic disease. Breakfast Cook: PSCB Transcribe Date/Time: Oct 28 2024 9:28A Dictated by : LAYNE PITTS MD This examination was interpreted and the report reviewed and electronically signed by: LAYNE PITTS MD on Oct 28 2024 9:48AM EST * * *Final Report* * * DATE OF EXAM: Oct 28 2024 9:01AM [facility] 0295 - MRI BRAIN WO/W IVCON / PROCEDURE REASON: C79.31-Metastasis to brain (HCC) * * * * Physician Interpretation * * * * EXAMINATION: MRI BRAIN WO/W IVCON CLINICAL HISTORY: Intracranial metastases, history of adenocarcinoma of the lung with intracranial metastases status post radiosurgery 07/28/2023. TECHNIQUE: Routine brain MRI protocol without and with contrast including diffusion images. Perfusion: MR perfusion study was performed of the entire brain following bolus intravenous administration of gadolinium utilizing dynamic susceptibility-weighted contrast-enhanced acquisition. MQ: [id number] Contrast: 15 mL Dotarem IV COMPARISON: MRI brain 07/29/2024 RESULT: Acute Change: There is no evidence of an acute intracranial process. Hemorrhage: No evidence of prior parenchymal hemorrhage on the susceptibility weighted images. Mass Lesion/ Mass Effect: No evidence of an intracranial mass or extra-axial fluid collection. No abnormal parenchymal or leptomeningeal enhancement is noted following contrast administration. No significant mass effect. No perfusion abnormalities noted. Chronic Change: Scattered punctate foci of increased T2 and FLAIR signal are noted in the supratentorial white matter which is a nonspecific finding, unchanged from the prior exam. Parenchyma: No significant volume loss for age. The brain parenchyma is otherwise within normal limits of signal intensity and morphology. Ventricles: Normal caliber and morphology. Skull Base: Hypothalamic and pituitary region are grossly normal. Craniocervical junction is normal. No significant marrow replacement process. Vasculature: Major intracranial arterial structures, and dural venous sinuses show typical flow void, suggesting patency by spin echo criteria. Other: Bilateral mastoid effusions. Mild mucosal thickening in the bilateral maxillary sinuses and right sphenoid sinus. The visualized paranasal sinuses and mastoid air cells are otherwise clear. The orbits and extracranial soft tissues are unremarkable. KPS: 90 documented in this encounter [facility] 02-03-2025 History of Present illness Narrative Radiology Service Progress Note DATE OF SERVICE: February 03, 2025 TIME: 8:14 AM PATIENT IDENTITY VERIFICATION COMPLETED USING TWO (2) STANDARD IDENTIFIERS: Name and Date of confirmed by patient verbally and Name and Date of confirmed by identification band. FALL SCREENING: Has the patient had 2 falls in the last year or 1 fall with injury or currently using an Ambulatory Assistive Device (Walker, Cane, Wheelchair, Crutches, etc.)? No PATIENT GENDER DATA: Assigned female at . status: : No status: NO. PATIENT RELEVANT IMPLANT DATA REVIEWED: Yes PATIENT PRESENTS WITH AN IMPLANTABLE OR ATTACHED CARPENTER APPRENTICE: No ALLERGIES: Reviewed and unchanged CONTRAST ALLERGY: NO. EXAM: MRI - CONTRAST TYPE: GROUP II PERIPHERAL IV DATA: rad rn iv RADIOLOGY DEPARTMENT: MR; Exam(s) Completed: Head: Routine Brain with Perfusion. Lavender Administered: No SIGNATURE: Kecia Wright student; RT Ashley(R) PATIENT NAME: Lashell Segura DATE: February 03, 2025 TIME: 8:14 AM Radiology Service Progress Note PATIENT NAME: Lashell Segura DATE OF SERVICE: February 03, 2025 TIME: 8:18 AM PATIENT IDENTITY VERIFICATION COMPLETED USING TWO (2) IDENTIFIERS: Name and Date of confirmed by patient verbally and Name and Date of confirmed by identification band. FALL SCREENING: Has the patient had 2 falls in the last year or 1 fall with injury or currently using an Ambulatory Assistive Device (Walker, Cane, Wheelchair, Crutches, etc.)? No PATIENT GENDER DATA: Assigned female at . status: : No status: NO. PATIENT RELEVANT IMPLANT DATA REVIEWED: Yes PATIENT PRESENTS WITH AN IMPLANTABLE OR ATTACHED CARPENTER APPRENTICE: No RADIOLOGY DEPARTMENT: MR; Exam(s) Completed: Head: Routine Brain with Perfusion. Lavender Administered: No PERIPHERAL IV DATA: Site assessment: Clean,Dry and Intact, Site disposition Discontinued SIGNED BY: RT Faina(R) February 03, 2025 8:18 AM documented in this encounter [facility] 02-03-2025 Note HNO ID: [id number] Author: BHAVANA SUTTON RT(R) Service: Radiology Author Type: Technologist Type: Progress Notes Filed: 02/03/2025 08:16 Note Text: Radiology Service Progress Note DATE OF SERVICE: February 03, 2025 TIME: 8:14 AM PATIENT IDENTITY VERIFICATION COMPLETED USING TWO (2) STANDARD IDENTIFIERS: Name and Date of confirmed by patient verbally and Name and Date of confirmed by identification band. FALL SCREENING: Has the patient had 2 falls in the last year or 1 fall with injury or currently using an Ambulatory Assistive Device (Walker, Cane, Wheelchair, Crutches, etc.)? No PATIENT GENDER DATA: Assigned female at . status: : No status: NO. PATIENT RELEVANT IMPLANT DATA REVIEWED: Yes PATIENT PRESENTS WITH AN IMPLANTABLE OR ATTACHED CARPENTER APPRENTICE: No ALLERGIES: Reviewed and unchanged CONTRAST ALLERGY: NO. EXAM: MRI - CONTRAST TYPE: GROUP II PERIPHERAL IV DATA: rad rn iv RADIOLOGY DEPARTMENT: MR; Exam(s) Completed: Head: Routine Brain with Perfusion. Lavender Administered: No SIGNATURE: Kecia Wright student; RT Ashley(R) PATIENT NAME: Lashell Segura DATE: February 03, 2025 TIME: 8:14 AM [facility] 02-03-2025 Note HNO ID: [id number] Author: YOLANDA JOHNSON RT(R) Service: Radiology Author Type: Technologist Type: Progress Notes Filed: 02/03/2025 08:19 Note Text: Radiology Service Progress Note PATIENT NAME: Lashell Segura DATE OF SERVICE: February 03, 2025 TIME: 8:18 AM PATIENT IDENTITY VERIFICATION COMPLETED USING TWO (2) IDENTIFIERS: Name and Date of confirmed by patient verbally and Name and Date of confirmed by identification band. FALL SCREENING: Has the patient had 2 falls in the last year or 1 fall with injury or currently using an Ambulatory Assistive Device (Walker, Cane, Wheelchair, Crutches, etc.)? No PATIENT GENDER DATA: Assigned female at . status: : No status: NO. PATIENT RELEVANT IMPLANT DATA REVIEWED: Yes PATIENT PRESENTS WITH AN IMPLANTABLE OR ATTACHED CARPENTER APPRENTICE: No RADIOLOGY DEPARTMENT: MR; Exam(s) Completed: Head: Routine Brain with Perfusion. Lavender Administered: No PERIPHERAL IV DATA: Site assessment: Clean,Dry and Intact, Site disposition Discontinued SIGNED BY: RT Faina(R) February 03, 2025 8:18 AM [facility] 02-03-2025 Nurse Note Radiology Service Progress Note DATE OF SERVICE: February 03, 2025 TIME: 8:12 AM PATIENT WEIGHT: LBS PATIENT IDENTITY VERIFICATION COMPLETED USING TWO (2) STANDARD IDENTIFIERS: Name and Date of confirmed by patient verbally. FALL SCREENING: Has the patient had 2 falls in the last year or 1 fall with injury or currently using an Ambulatory Assistive Device (Walker, Cane, Wheelchair, Crutches, etc.)? No PATIENT GENDER DATA: Assigned female at . status: : No status: NO. ALLERGIES: Reviewed and unchanged CONTRAST ALLERGY: No EXAM: MRI - CONTRAST TYPE: GROUP II IV SITE: Ambulatory: A peripheral IV was started in the Left with a Angio cath: 22 gauge. IV SITE APPEARANCE: Clean,Dry and Intact SIGNATURE: Ting Dawson RN PATIENT NAME: Lashell Segura DATE: February 03, 2025 TIME: 8:12 AM [facility] 02-03-2025 Nurse Note Radiology Service Progress Note DATE OF SERVICE: February 03, 2025 TIME: 8:12 AM PATIENT WEIGHT: LBS PATIENT IDENTITY VERIFICATION COMPLETED USING TWO (2) STANDARD IDENTIFIERS: Name and Date of confirmed by patient verbally. FALL SCREENING: Has the patient had 2 falls in the last year or 1 fall with injury or currently using an Ambulatory Assistive Device (Walker, Cane, Wheelchair, Crutches, etc.)? No PATIENT GENDER DATA: Assigned female at . status: : No status: NO. ALLERGIES: Reviewed and unchanged CONTRAST ALLERGY: No EXAM: MRI - CONTRAST TYPE: GROUP II IV SITE: Ambulatory: A peripheral IV was started in the Left with a Angio cath: 22 gauge. IV SITE APPEARANCE: Clean,Dry and Intact SIGNATURE: Ting Dawson RN PATIENT NAME: Lashell Segura DATE: February 03, 2025 TIME: 8:12 AM documented in this encounter [facility] 01-31-2025 History of Present illness Narrative Radiology Service Progress Note PATIENT NAME: Lashell Segura DATE OF SERVICE: January 31, 2025 TIME: 3:40 PM PATIENT IDENTITY VERIFICATION COMPLETED USING TWO (2) IDENTIFIERS: Name and Date of confirmed by patient verbally and Name and Date of confirmed by identification band. FALL SCREENING: Has the patient had 2 falls in the last year or 1 fall with injury or currently using an Ambulatory Assistive Device (Walker, Cane, Wheelchair, Crutches, etc.)? No PATIENT GENDER DATA: Assigned female at . status: : No status: NO. PATIENT RELEVANT IMPLANT DATA REVIEWED: Yes PATIENT PRESENTS WITH AN IMPLANTABLE OR ATTACHED CARPENTER APPRENTICE: No RADIOLOGY DEPARTMENT: CT; Exam(s) Completed: Chest PERIPHERAL IV DATA: Not applicable SIGNED BY: ETHEL Nieves) January 31, 2025 3:40 PM documented in this encounter [facility] 01-31-2025 Note HNO ID: [id number] Author: MARILEE FERREIRA RT(R) Service: Radiology Author Type: Technologist Type: Progress Notes Filed: 01/31/2025 15:42 Note Text: Radiology Service Progress Note PATIENT NAME: Lashell Segura DATE OF SERVICE: January 31, 2025 TIME: 3:40 PM PATIENT IDENTITY VERIFICATION COMPLETED USING TWO (2) IDENTIFIERS: Name and Date of confirmed by patient verbally and Name and Date of confirmed by identification band. FALL SCREENING: Has the patient had 2 falls in the last year or 1 fall with injury or currently using an Ambulatory Assistive Device (Walker, Cane, Wheelchair, Crutches, etc.)? No PATIENT GENDER DATA: Assigned female at . status: : No status: NO. PATIENT RELEVANT IMPLANT DATA REVIEWED: Yes PATIENT PRESENTS WITH AN IMPLANTABLE OR ATTACHED CARPENTER APPRENTICE: No RADIOLOGY DEPARTMENT: CT; Exam(s) Completed: Chest PERIPHERAL IV DATA: Not applicable SIGNED BY: Marilee Ferreira RT(R) January 31, 2025 3:40 PM [facility] 12-24-2024 Note Addended by: JOLEEN JIANG on: 12/24/2024 09:59 AM Modules accepted: Orders [facility] 12-24-2024 Miscellaneous Notes Addended by: JOLEEN JIANG on: 12/24/2024 09:59 AM Modules accepted: Orders documented in this encounter [facility] 12-24-2024 Note [facility] 12-24-2024 History of Present illness Narrative Additional intake questions: Has the patient had fever, nausea, vomiting, diarrhea, constipation, fatigue for > 1 week? Yes, fatigue and Provider Notified Does the patient have a decreased appetite? No Does patient want to see a Wind Farm Operations Manager? No (yes to any of above refer patient to schedulers for dietitian appointment) ) Does patient have any new or increased numbness or tingling of extremities? No Is patient interested in fertility information? NA Does patient need any prescription refills? No Does patient have an advanced directive in place? No Thoracic Oncology Physician Slurry Man Established Patient Visit December 24, 2024 Portions of this encounter note have been copied from my previous note dated, 10/18/24, which has been updated where appropriate and all reflect current medical decision making from today, 12/24/2024. ATTENDING PHYSICIAN: Dr. Jiang DIAGNOSIS: [id number] stage SUE lung adenocarcinoma. BIOMARKERS: Interval molecular data have demonstrated PD-L1 99%, KRAS G12C+; Previous TREATMENT: GKRS to brain mets 07/28/23 [id number] 08/10/2023- 10/29/23 Pemetrexed + Pembrolizumab q3w 11/26/23-10/18/24 Current Treatment: Pembrolizumab q6w 11/08/24 - present INTERVAL HISTORY: Ms. Segura is a 54 year old female who presents for management of metastatic lung adenocarcinoma. She is overall doing well, has transitioned well to single agent pembrolizumab without much difficulty. States she primarily only is experiencing fatigue. Discontinued olanzapine aqnd states her leg swelling as improved and no changes to her sleep, nausea or appetite. Denies any new breathing difficulties, states as weather warms her breathing is improved however has been unable to obtain her albuterol rescue inhaler due to insurance issues. Denies any cough, congestion, rhinorrhea. Denies any other complaints today. REVIEW OF SYSTEMS: The remainder of the review of systems is negative. Medications: albuterol HFA (PROVENTIL HFA, VENTOLIN HFA) 90 mcg/actuation inhaler Inhale 2 puffs as instructed every 6 hours as needed for wheezing/shortness of breath. prochlorperazine (COMPAZINE) 10 mg tablet Take 1 tablet by mouth every 4 hours as needed. buPROPion SR (WELLBUTRIN SR) 150 mg 12 hr tablet Take 1 tablet by mouth two times a day. lacosamide (VIMPAT) 150 mg tab Take 1 tablet by mouth two times a day for 180 days. folic acid 1 mg tablet Take 1 tablet by mouth once daily. furosemide (LASIX) 20 mg tablet Take 1 tablet by mouth once daily. albuterol sulfate 90 mcg/actuation breath activated powder inhaler Inhale 1 Puff as instructed every 6 hours as needed for wheezing/shortness of breath. lidocaine (SALONPAS) 4 % patch Apply 1 Patch as directed once daily. pyridoxine, vitamin B6, (VITAMIN B6) 100 mg tablet Take 1 tablet by mouth once daily. OLANZapine (ZYPREXA) 5 mg tablet TAKE 1 TABLET BY MOUTH ONCE DAILY AT BEDTIME. start on the day OF chemotherapy and TAKE for 5 (FIVE) nights ondansetron (ZOFRAN) 8 mg tablet Take 1 tablet by mouth every 8 hours as needed for nausea/vomiting. famotidine (PEPCID) 20 mg tablet Take 1 tablet by mouth two times a day. varenicline (CHANTIX) 1 mg tablet Take 1 tablet by mouth two times a day with meals. ibuprofen (MOTRIN) 200 mg tablet Take 200 mg by mouth every 6 hours as needed for pain. loperamide (IMODIUM A-D) 2 mg cap(s) Take 1 capsule by mouth four times a day as needed. pantoprazole DR (PROTONIX) 40 mg tablet Take 1 tablet by mouth daily at 6 am. acetaminophen (TYLENOL) 325 mg tablet 2 tablets by ORAL/FEEDING TUBE route every 4 hours as needed for pain. atorvastatin (LIPITOR) 40 mg tablet Take 40 mg by mouth once daily. DULoxetine (CYMBALTA) 60 mg capsule Take 60 mg by mouth once daily. Allergies: ALLERGIES Allergen Reactions Eggs [Egg] Hives Latex Hives Penicillins Hives PAST MEDICAL HISTORY Diagnosis Date Brain tumor (HCC) Epilepsy (HCC) Lung cancer (HCC) Social History Tobacco Use Smoking status: Every Day Current packs/day: 0.00 Average packs/day: 1 pack/day for 42.0 years (42.0 ttl pk-yrs) Types: Cigarettes Start date: 08/25/1981 Last attempt to quit: 08/25/2023 Years since quittin.3 Passive exposure: Current Smokeless tobacco: Never Tobacco comments: 2cigs/day Vaping Use Vaping status: Never Used Substance Use Topics Alcohol use: Yes Comment: social Drug use: Not Currently Problem List: ACTIVE PROBLEM LIST Adenocarcinoma of Lung, Stage 4 (Hcc) - 09/27/2024 S/P Lumpectomy of Breast - 02/13/2024 Neoplasm of Lung - 08/04/2023 Lung Mass - 07/21/2023 Breast Nodule - 07/21/2023 Tobacco Abuse - 07/21/2023 Vasogenic Brain Edema (Hcc) - 07/21/2023 At Risk for Lymphedema - 07/21/2023 Seizure (Hcc) - 07/21/2023 Metastasis to Brain (Hcc) - 07/20/2023 PHYSICAL EXAM: Vitals BP 132/75 Pulse 85 Temp 36.2 C (97.1 F) (Temporal) Resp 18 Wt 80.2 kg (176 lb 12.9 oz) LMP 05/25/2016 SpO2 100% BMI 31.32 kg/m ECOG PERFORMANCE STATUS: 1- Restricted in physically strenuous activity. Carries out light duty. Physical Exam Vitals and nursing note reviewed. Constitutional: General: She is not in acute distress. Appearance: Normal appearance. She is not ill-appearing or toxic-appearing. HENT: Head: Normocephalic and atraumatic. Right Ear: External ear normal. Left Ear: External ear normal. Nose: Nose normal. Mouth/Throat: Mouth: Mucous membranes are moist. Eyes: General: Right eye: No discharge. Left eye: No discharge. Cardiovascular: Rate and Rhythm: Normal rate and regular rhythm. Heart sounds: Normal heart sounds. Pulmonary: Effort: Pulmonary effort is normal. No respiratory distress. Breath sounds: Normal breath sounds. No stridor. No wheezing, rhonchi or rales. Abdominal: General: Abdomen is flat. Tenderness: There is no abdominal tenderness. There is no guarding or rebound. Musculoskeletal: General: Normal range of motion. Cervical back: Normal range of motion. Skin: General: Skin is warm and dry. Neurological: General: No focal deficit present. Mental Status: She is alert and oriented to person, place, and time. Psychiatric: Mood and Affect: Mood normal. Behavior: Behavior normal. Thought Content: Thought content normal. Judgment: Judgment normal. Laboratory Data WBC (k/uL) Date Value 12/24/2024 7.76 RBC (m/uL) Date Value 12/24/2024 4.28 Hemoglobin (g/dL) Date Value 12/24/2024 14.3 Hematocrit (%) Date Value 12/24/2024 41.3 MCV (fL) Date Value 12/24/2024 96.5 MCH (pg) Date Value 12/24/2024 33.4 MCHC (g/dL) Date Value 12/24/2024 34.6 RDW-CV (%) Date Value 12/24/2024 12.1 Platelet Count (k/uL) Date Value 12/24/2024 239 MPV (fL) Date Value 12/24/2024 8.4 (L) Neutrophils % (%) Date Value 12/24/2024 47.6 Lymphocytes % (%) Date Value 12/24/2024 40.7 Monocytes % (%) Date Value 12/24/2024 7.3 Eosinophils % (%) Date Value 12/24/2024 3.2 Basophils % (%) Date Value 12/24/2024 0.9 Abs Neut (k/uL) Date Value 12/24/2024 3.69 Abs Johnston (k/uL) Date Value 12/24/2024 0.57 Abs Eosin (k/uL) Date Value 12/24/2024 0.25 Abs Baso (k/uL) Date Value 12/24/2024 0.07 Glucose (mg/dL) Date Value 12/24/2024 92 BUN (mg/dL) Date Value 12/24/2024 20 Creatinine (mg/dL) Date Value 12/24/2024 0.84 Sodium (mmol/L) Date Value 12/24/2024 139 Potassium (mmol/L) Date Value 12/24/2024 4.1 Chloride (mmol/L) Date Value 12/24/2024 104 CO2 (mmol/L) Date Value 12/24/2024 24 Protein, Total (g/dL) Date Value 12/24/2024 7.3 Albumin (g/dL) Date Value 12/24/2024 4.4 Calcium, Total (mg/dL) Date Value 12/24/2024 9.4 Alkaline Phosphatase (U/L) Date Value 12/24/2024 121 Bilirubin, Total (mg/dL) Date Value 12/24/2024 <0.2 (L) AST (U/L) Date Value 12/24/2024 29 ALT (U/L) Date Value 12/24/2024 23 No results found for: CEA No results found for: [id number] TSH (mIU/L) Date Value 11/08/2024 0.985 10/18/2024 1.270 09/27/2024 1.640 Imaging: Last CT/CTA Chest/Lungs CT CHEST WO IVCON Exam End: 11/04/2024 8:59 AM (Final result) Narrative: * * *Final Report* * * DATE OF EXAM: Nov 04 2024 8:59AM [facility] [id number]ST [place] IVCON / PROCEDURE REASON: C34.90-Adenocarcinoma of lung, stage 4, unspecified laterality (HCC) * * * * Physician Interpretation * * * * EXAMINATION: CHEST CT WITHOUT CONTRAST CLINICAL HISTORY: Adenocarcinoma of lung, stage 4, unspecified laterality (HCC) Technique: Spiral CT acquisition of the chest from the thoracic inlet to the upper abdomen without contrast. MQ: [id number] CT Radiation dose: Integrated Dose-length product (DLP) for this visit = 235 mGy*cm CT Dose Reduction Employed: Automated exposure control(AEC) and iterative recon Comparison: 08/26/2024, 06/01/2024 RESULT: Limitations: None. Lines, tubes, and devices: None. Lung parenchyma and airways: Emphysema mild, diffuse bronchiectasis. There is biapical fibrosis. Persistent consolidative opacity within the apicoposterior segment of the left upper lobe and lingula, when compared the prior examination, which may relate to post therapy change; however, continued interval surveillance is recommended. Atelectasis is seen within the right middle lobe. Stable groundglass attenuation nodular opacity is seen within the anterior segment right upper lobe, measuring approximately 1.7 cm (series 2, image #124). Other smaller groundglass attenuation nodule opacities are also stable. Pleural space: There is no pleural effusion. Lower neck, lymph nodes, and mediastinum: Again seen are surgical clips within the right lateral breast and right axilla. There are no pathologically enlarged axillary, mediastinal, or hilar lymph nodes. Heart, pericardium, and thoracic vessels: Atherosclerotic calcifications are present within thoracic aorta. Fatty hypertrophy of the intra-atrial septum. The heart is normal in size. Stable small pericardial effusion, when compared to the prior examination. Bones and soft tissues: There is scoliosis and multilevel degenerative change seen within the thoracic spine. A few presumed bone islands are seen in the osseous structures. Mild scoliosis of thoracic spine, convex to the left. Vacuum disc phenomena is seen at multiple levels. Stable mild compression deformity seen involving the T11 vertebral body, when compared to the prior examination. Again seen is a healing fracture involving the left lateral ninth rib. Upper abdomen: Contents are seen within the stomach. A few small splenules are incidentally noted within left upper quadrant. There is mild, nonspecific bilateral perinephric fat stranding. Impression: IMPRESSION: 1. No significant interval change in CT appearance of the chest. Persistent consolidative opacity within the apicoposterior segment of the left upper lobe and lingula, when compared to the prior examination, which may relate to posttherapy change; however, continued interval surveillance is recommended. 2. Stable groundglass attenuation nodular opacity is within the right upper lobe, measuring up to 1.7 cm. Other smaller groundglass attenuation nodular opacities are also stable. 3. No mili lymphadenopathy is seen within the chest. 4. Stable small pericardial effusion. Breakfast Cook: EVGENY Transcribe Date/Time: Nov 04 2024 10:17A Dictated by : BISHOP GUY MD This examination was interpreted and the report reviewed and electronically signed by: BISHOP GUY MD on Nov 04 2024 6:43PM EST ASSESSMENT/PLAN: Ms. Segura is a 54 year old female with metastatic lung adenocarcinoma. She presents today for routine monitoring and pretreatment evaluation. (C34.90) Adenocarcinoma of lung, stage 4, unspecified laterality (HCC) (primary encounter diagnosis) (Z51.12) Encounter for antineoplastic immunotherapy Comment: Labs reviewed and adequate for treatment today. Doing well clinically. Tolerated single agent pembrolizumab well without much difficulty. Plan: # Proceed with next cycle of maintenance pembrolizumab # Next CT 01/31/2025 with follow-up with Dr. Conklin 02/02/2025 to discuss results (R06.02) Shortness of breath Comment: History of tobacco use and does not have rescue inhaler at home due to insurance authorization issues. Plan: # Switched pharmacy to toxic in hopes that insurance will authorize this today I spent a total of 20 minutes on the date of the service which included preparing to see the patient, [id number] patient care, completing clinical documentation, obtaining and/or reviewing separately obtained history, performing a medically appropriate examination, counseling and educating the patient/family/caregiver, ordering medications, tests, or procedures, communicating with other HCPs (not separately reported), independently interpreting results (not separately reported), communicating results to the patient/family/caregiver, and care coordination (not separately reported). Tri Dickerson PA-C [facility] [place] [facility] documented in this encounter [facility] 12-24-2024 Note [facility] 11-24-2024 Note HNO ID: [id number] Author: MARK MCDONNELL MD Service: ? Author Type: Physician Type: Progress Notes Filed: 11/24/2024 10:33 Note Text: [facility] Patient Name: Lashell Segura Date of : 1970 ESTABLISHED EPILEPSY CLINIC NOTE 11/24/2024 10:00 AM Reason for Visit: Follow Up and Epilepsy Clinical Summary: Ms. Segura is a 53 year old left-handed Write, eats, throws left handed. Strong family h/o left handedness female seen in [facility]. At today's visit, the patient is accompanied by: Daughter EPILEPSY CLASSIFICATION Left Temporal Lobe Epilepsy Seizures: 1. Aphasic Seizure -> Right Versive Seizure -> Generalized Tonic-Clonic Seizure 2. Subclinical EEG Seizure (no clinical signs) Etiology: Tumor (Tumor - other) Metastatic brain tumor-lung NSCLC primary HISTORY OF PRESENT ILLNESS Handedness: left-handed Write, eats, throws left handed. Strong family h/o left handedness Age of onset: Seizure History and Evolution Symptoms started 07/19/2023. Per she had nonsensical speech, difficulty getting words out. She was confused. Initial concern was for stroke. She was taken to [place] ED where as per stroke code CT CTA was done which showed a left temporal mass lesion. While in the ED patient had a witnessed seizure-described as eyes deviated to the right, head turned to the right, generalized tonic-clonic seizure. She was given Ativan and loaded with Keppra. She was [facility] for further evaluation of brain mass. MRI brain confirmed left temporal lesion suspected to be metastatic associated with edema. CT chest abdominal pelvis showed compressed nodule and lung mass. She underwent bronchoscopy on 07/22/2023 with preliminary results showing non-small cell lung carcinoma. She was started on continuous EEG monitoring which showed PLEDs in the left hemisphere as well as NCS seizures from the left frontotemporal region. Keppra was increased to 1500 mg BID She underwent gamma knife radiation surgery on 07/28/2023 followed by steroid taper. She follows with oncology team (Dr. Joleen Jiang). She was started on chemotherapy with Pembrolizumab, Pemetrexed, Carboplatin. Currently on Pemetrexed/Pembrolizumab Most recent MRI in December 2023 shows near total resolution of T2 hyperintensity in the Left temporal region. Interval Seizure History She is currently taking Vimpat 150 mg twice daily and does not endorse any side effects such as dizziness, unsteady gait, or double vision. She reports that the medication is working well. She is also taking Wellbutrin 150 mg daily, prescribed by her oncologist, Dr. Jiang, for smoking cessation. This medication was started approximately 4-6 months ago. She has not experienced any worsening of seizures since starting Wellbutrin. Total # of Current Anti-seizure Medications: Side Effects to Current Anti-seizure Medications: Seizure Frequency at First Visit: Longest Seizure-free Interval: Number of seizure types: 1 Hx of generalized tonic-clonic seizures: Yes Seizure-related driving accidents: No Driving: No Lives Alone: No CURRENT OUTPATIENT ANTISEIZURE MEDICATIONS (as of the start of the encounter) lacosamide (VIMPAT) 150 mg tab Take 1 tablet by mouth two times a day for 180 days. Prior Anti-seizure Therapies: Trial Adequacy: Max Daily Dose Achieved: Side Effects: Effectiveness: Comments: Levetiracetam Comorbidities: Minor: Brain Tumor Episode Description: SEIZURE TYPE 1: Aphasia-> right face clonic, right head deviation-> GTCS Description: Nonsensical speech for a few hours followed by right face, right head deviation and generalized tonic-clonic seizure. Loss of awareness: Duration: Frequency: Last occurred: SEIZURE TYPE 2: NCS Description: No clinical signs seizures arising from left frontotemporal region noted on EEG monitoring Loss of awareness: Duration: Frequency: Last occurred: Patient Entered Data: EPILEPSY SCORE 09/26/2024 3:21 PM PHQ-9 SCORE 6 [Mild Depression] KHALIDA 2 SCORE - KHALIDA 7 SCORE - QOLIE-10 SCORE (0=worst; 100=best QoL - higher scores represent better function) - LSSS SCORE (0- no seizures 100- most severe possible seizures) - C-SSRS SCREEN - On average, how many hours of sleep do you get in a 24-hour period? - PROMIS Sleep Disturbance T-SCORE - Have you been diagnosed with Sleep Apnea? 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 [facility] 11-24-2024 History of Present illness Narrative [facility] Patient Name: Lashell Segura Date of : 1970 ESTABLISHED EPILEPSY CLINIC NOTE 11/24/2024 10:00 AM Reason for Visit: Follow Up and Epilepsy Clinical Summary: Ms. Segura is a 53 year old left-handed Write, eats, throws left handed. Strong family h/o left handedness female seen in [facility]. At today's visit, the patient is accompanied by: Daughter EPILEPSY CLASSIFICATION Left Temporal Lobe Epilepsy Seizures: 1. Aphasic Seizure -> Right Versive Seizure -> Generalized Tonic-Clonic Seizure 2. Subclinical EEG Seizure (no clinical signs) Etiology: Tumor (Tumor - other) Metastatic brain tumor-lung NSCLC primary HISTORY OF PRESENT ILLNESS Handedness: left-handed Write, eats, throws left handed. Strong family h/o left handedness Age of onset: Seizure History and Evolution Symptoms started 07/19/2023. Per she had nonsensical speech, difficulty getting words out. She was confused. Initial concern was for stroke. She was taken to [place] ED where as per stroke code CT CTA was done which showed a left temporal mass lesion. While in the ED patient had a witnessed seizure-described as eyes deviated to the right, head turned to the right, generalized tonic-clonic seizure. She was given Ativan and loaded with Keppra. She was transferred to [facility] for further evaluation of brain mass. MRI brain confirmed left temporal lesion suspected to be metastatic associated with edema. CT chest abdominal pelvis showed compressed nodule and lung mass. She underwent bronchoscopy on 07/22/2023 with preliminary results showing non-small cell lung carcinoma. She was started on continuous EEG monitoring which showed PLEDs in the left hemisphere as well as NCS seizures from the left frontotemporal region. Keppra was increased to 1500 mg BID She underwent gamma knife radiation surgery on 07/28/2023 followed by steroid taper. She follows with oncology team (Dr. Joleen Jiang). She was started on chemotherapy with Pembrolizumab, Pemetrexed, Carboplatin. Currently on Pemetrexed/Pembrolizumab Most recent MRI in December 2023 shows near total resolution of T2 hyperintensity in the Left temporal region. Interval Seizure History She is currently taking Vimpat 150 mg twice daily and does not endorse any side effects such as dizziness, unsteady gait, or double vision. She reports that the medication is working well. She is also taking Wellbutrin 150 mg daily, prescribed by her oncologist, Dr. Jiang, for smoking cessation. This medication was started approximately 4-6 months ago. She has not experienced any worsening of seizures since starting Wellbutrin. Total # of Current Anti-seizure Medications: Side Effects to Current Anti-seizure Medications: Seizure Frequency at First Visit: Longest Seizure-free Interval: Number of seizure types: 1 Hx of generalized tonic-clonic seizures: Yes Seizure-related driving accidents: No Driving: No Lives Alone: No CURRENT OUTPATIENT ANTISEIZURE MEDICATIONS (as of the start of the encounter) lacosamide (VIMPAT) 150 mg tab Take 1 tablet by mouth two times a day for 180 days. Prior Anti-seizure Therapies: Trial Adequacy: Max Daily Dose Achieved: Side Effects: Effectiveness: Comments: Levetiracetam Comorbidities: Minor: Brain Tumor Episode Description: SEIZURE TYPE 1: Aphasia-> right face clonic, right head deviation-> GTCS Description: Nonsensical speech for a few hours followed by right face, right head deviation and generalized tonic-clonic seizure. Loss of awareness: Duration: Frequency: Last occurred: SEIZURE TYPE 2: NCS Description: No clinical signs seizures arising from left frontotemporal region noted on EEG monitoring Loss of awareness: Duration: Frequency: Last occurred: Patient Entered Data: EPILEPSY SCORE 09/26/2024 3:21 PM PHQ-9 SCORE 6 [Mild Depression] KHALIDA 2 SCORE - KHALIDA 7 SCORE - QOLIE-10 SCORE (0=worst; 100=best QoL - higher scores represent better function) - LSSS SCORE (0- no seizures 100- most severe possible seizures) - C-SSRS SCREEN - On average, how many hours of sleep do you get in a 24-hour period? - PROMIS Sleep Disturbance T-SCORE - Have you been diagnosed with Sleep Apnea? 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 Developmental Delay No Family history of seizures No Febrile Seizure Unanswered Complications No Stroke No Traumatic Brain Injury No Previous Epilepsy Evaluations Bedside EEG 07/21/2023 Interictal: Continuous Slow, Lateralized, Left Hemisphere PLEDs, Lateralized, Left hemisphere maximum left fronto-temporal region Ictal: EEG Seizure, Regional, Left Fronto-temporal No Clinical Signs Impression: This bedside EEG was recorded from 0430 on 07/21/2023 until 0732 on 07/22/2023 and is suggestive of an acute/subacute cortical dysfunction in the left hemisphere with epileptogenicity arising from the left fronto-temporal region. There was one EEG seizure arising from the left fronto-temporal region on 07/21/2023 at 2016 lasting 3 minutes with no apparent clinical signs. MRI brain 07/20/2023 1 cm enhancing ovoid mass within the left temporal lobe, with significant surrounding vasogenic edema, likely represents intraparenchymal metastasis. No associated restricted diffusion which would argue against abscess. No regional brain enhancement which would argue against a more generalized cerebritis. No evidence for acute ischemia or hemorrhage. MRI brain 01/08/2024 'IMPRESSION: Near complete resolution of the enhancing lesion previously identified adjacent to the anterior aspect of the left superior temporal sulcus. No new lesions. No evidence of leptomeningeal disease. No perfusion abnormalities. Other caregivers: Primary Care Provider: Martine Marrufo APRN.SLOT MACHINE KEY PERSON Current Outpatient Medications Medication Sig folic acid 1 mg tablet Take 1 tablet by mouth once daily. furosemide (LASIX) 20 mg tablet Take 1 tablet by mouth once daily. albuterol sulfate 90 mcg/actuation breath activated powder inhaler Inhale 1 Puff as instructed every 6 hours as needed for wheezing/shortness of breath. lidocaine (SALONPAS) 4 % patch Apply 1 Patch as directed once daily. pyridoxine, vitamin B6, (VITAMIN B6) 100 mg tablet Take 1 tablet by mouth once daily. OLANZapine (ZYPREXA) 5 mg tablet TAKE 1 TABLET BY MOUTH ONCE DAILY AT BEDTIME. start on the day OF chemotherapy and TAKE for 5 (FIVE) nights buPROPion SR (WELLBUTRIN SR) 150 mg 12 hr tablet Take 1 tablet by mouth two times a day. prochlorperazine (COMPAZINE) 10 mg tablet Take 1 tablet by mouth every 4 hours as needed. ondansetron (ZOFRAN) 8 mg tablet Take 1 tablet by mouth every 8 hours as needed for nausea/vomiting. famotidine (PEPCID) 20 mg tablet Take 1 tablet by mouth two times a day. varenicline (CHANTIX) 1 mg tablet Take 1 tablet by mouth two times a day with meals. ibuprofen (MOTRIN) 200 mg tablet Take 200 mg by mouth every 6 hours as needed for pain. loperamide (IMODIUM A-D) 2 mg cap(s) Take 1 capsule by mouth four times a day as needed. pantoprazole DR (PROTONIX) 40 mg tablet Take 1 tablet by mouth daily at 6 am. acetaminophen (TYLENOL) 325 mg tablet 2 tablets by ORAL/FEEDING TUBE route every 4 hours as needed for pain. atorvastatin (LIPITOR) 40 mg tablet Take 40 mg by mouth once daily. DULoxetine (CYMBALTA) 60 mg capsule Take 60 mg by mouth once daily. lacosamide (VIMPAT) 150 mg tab Take 1 tablet by mouth two times a day for 180 days. No current facility-administered medications for this visit. ALLERGIES Allergen Reactions Eggs [Egg] Hives Latex Hives Penicillins Hives PAST MEDICAL HISTORY Diagnosis Date Brain tumor (HCC) Epilepsy (HCC) Lung cancer (HCC) PAST SURGICAL HISTORY Procedure Laterality Date SECTION HX KNEE SURGERY HX Right meniscus x2 REVISE MEDIAN N/CARPAL TUNNEL SURG Bilateral FAMILY HISTORY Problem Relation Age of Onset Systemic Lupus Erythematosus Mother Lung Cancer Mother COPD Father Diabetes Maternal Grandmother Diabetes Paternal Grandmother Colon Cancer Paternal Grandfather Anesthesia Problems No Family History SOCIAL HISTORY: -Lives in [place], [place] -Patient lives alone? No -Vocation: -Education: -Cigarette, alcohol, substance use: -Functional status: independent in activities of daily living -Patient driving? No Review of Systems All other systems reviewed and are negative. VITAL SIGNS: BP 139/96 Pulse 90 Resp 16 Ht 160 cm (5' 3) Wt 79.4 kg (175 lb) LMP 05/25/2016 BMI 31.00 kg/m General Examination: She is accompanied By her daughter. General: Awake, alert, interactive, no acute distress, good nutritional status, normal development, well-kept Neurological Exam Mental Status Alert, fully oriented, attentive, with normal cognition, memory, speech and affect. Cranial Nerves Face symmetric. Hearing intact with conversational speech. Motor Examination and Coordination Motor examination with normal bulk. Normal coordination. No adventitious movements or significant tremor. Gait Casual gait normal. IMPRESSION: Ms. 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 She is status post gamma knife radiation surgery for her brain metastasis followed by steroid taper, currently off of steroids. She has no seizure recurrence, currently on Keppra 1500 mg BID with worsening mood and irritability despite vitamin B6 trial. 12/05/2023: Given mood and irritability side effects, we discussed switching Keppra to Vimpat. We discussed the possibility of breakthrough seizure during titration phase of medications. 03/05/2024 : Mood is better off of Keppra. Doing well on Vimpat 150 mg BID. 11/24/2024: Doing well no changes made. MRI brain from October 2024 shows no new lesions/resolution of prior Left temporal metastatic lesion. PLAN: Continue Vimpat 150 mg BID Follow up in 6 months. Please discuss with oncology team if Wellbutrin is still appropriate due to propensity to worsen seizures although pt is at a low dose at this time. Future options:Onfi, Xcopri, Depakote Data reviewed as above including: electronic medical record Education Seizure precautions - No driving in the state [facility] until seizure free for 6 months. Please check with local state authorities for state specific driving regulations. - No operating heavy machines - No swimming without supervision or bathing in a bathtub due to risk of drowning in the event of a seizure. Patient may shower. - Avoid unsafe heights, including ladders, due to risk of fall-related injury in the event of a seizure. - Seizure precipitating factors discussed including not taking seizure medications as prescribed, stress, excessive caffeine intake, energy drinks, alcohol, sleep deprivation or any identifiable seizure precipitating factor. I discussed the risks, benefits and alternatives of the medical plan with the patient. Questions were answered. The patient agreed with the plan as discussed. FOLLOW-UP: Return in about 6 months (around 05/26/2025). I spent a total of 20 minutes on the date of the service which included: preparing to see the patient [id number] patient care completing clinical documentation obtaining and/or reviewing separately obtained history performing a medically appropriate examination counseling and educating the patient/family/caregiver ordering medications, tests, or procedures Mark Mcdnonell MD cc: Primary Care Physician: Martine Marrufo APRN.[facility] [address] [address] Referring: Patient: Ms. Lashell Segura [id number] [facility] [id number] documented in this encounter [facility] 11-24-2024 Instructions Mark Mcdonnell MD - 11/24/2024 10:26 AM EDT Summary of the things we discussed today: - Continue taking Vimpat 150 mg twice daily as prescribed. - Refill Vimpat prescription; a 6-month supply has been sent to your pharmacy. - Discuss with your oncologist, Dr. Jiang, the possibility of alternative medications to Wellbutrin due to its potential to worsen seizures. - Next follow-up appointment in 6 months. Please call my office if you have more seizures or with any seizure related concerns. Seizure precautions - No driving in the state [facility] until seizure free for 6 months. Please check with local state authorities for state specific driving regulations. - No operating heavy machines - No swimming without supervision or bathing in a bathtub due to risk of drowning in the event of a seizure. Patient may shower. - Avoid unsafe heights, including ladders, due to risk of fall-related injury in the event of a seizure. - Seizure precipitating factors discussed including not taking seizure medications as prescribed, stress, excessive caffeine intake, energy drinks, alcohol, sleep deprivation or any identifiable seizure precipitating factor. Mark Mcdonnell MD Associate Staff, Epilepsy [facility] November 24, 2024 Office phone: [phone] documented in this encounter [facility] 11-08-2024 Note [facility] 11-08-2024 History of Present illness Narrative Images from the original note were not included. [facility] ESTABLISHED PATIENT VISIT Department of Hematology and Medical Oncology (Elements copied from my note dated September 27,, have been reviewed and updated where appropriate, and all reflect current assessment and medical decision making from today's encounter, November 08, 2024) DIAGNOSIS: [id number] stage SUE lung adenocarcinoma. BIOMARKERS: Interval molecular data have demonstrated PD-L1 99%, KRAS G12C+; Current Treatment: Pemetrexed/Pembrolizumab 11/26/23- 10/18/2024 Previous TREATMENT: GKRS to brain mets 07/28/23 [id number] 08/10/2023- 10/29/23 HPI: Lashell Segura is a 54 year old female with diagnosis of stage IV non-small cell lung cancer, adenocarcinoma.Patient originally presented to with sudden onset expressive aphasia to the emergency room and had a witnessed generalized tonic-clonic seizure. Chest x-ray showed a left upper lobe mass concerning for malignancy. CT had showed left upper lobe lesion with significant vasogenic edema. Patient was transferred [facility] for neuro[facility] evaluation. CT chest abdomen pelvis done on July 21 showed a 4.2 x 3.6 cm lingular mass associated with occlusion of lingular bronchus. There is some postobstructive atelectasis. There are numerous bilateral solid/nonsolid nodules with the largest being 1.6 x 1.1 cm in the right lower lobe. There is a large left hilar lymph node 11 mm as well as enlarged right hilar lymph node 12 mm. T11 compression fracture. Right breast 11 mm nodule. MRI brain shows a 1 cm left temporal lobe mass. Patient has bronchoscopy and endobronchial biopsy of the left upper lobe lesion was positive for adenocarcinoma PD-L1 99% ALK negative remaining molecular pathology is negative. Patient received gamma knife treatment on July 28, Anton in 1 fraction,with no significant side effects INTERVAL HISTORY: Patient continued maintenance pemetrexed /pembrolizumab. Currently, patient has no specific complaints. She denies fever, , chest pain, cough, SOB, abd pain diarrhea or constipation. REVIEW OF SYSTEMS: As described above. All other systems were reviewed and were negative. PAST MEDICAL HISTORY: PAST MEDICAL HISTORY Diagnosis Date Brain tumor (HCC) Epilepsy (HCC) Lung cancer (HCC) PAST SURGICAL HISTORY: PAST SURGICAL HISTORY Procedure Laterality Date SECTION HX KNEE SURGERY HX Right meniscus x2 REVISE MEDIAN N/CARPAL TUNNEL SURG Bilateral MEDICATIONS: folic acid 1 mg tablet Take 1 tablet by mouth once daily. furosemide (LASIX) 20 mg tablet Take 1 tablet by mouth once daily. albuterol sulfate 90 mcg/actuation breath activated powder inhaler Inhale 1 Puff as instructed every 6 hours as needed for wheezing/shortness of breath. lidocaine (SALONPAS) 4 % patch Apply 1 Patch as directed once daily. pyridoxine, vitamin B6, (VITAMIN B6) 100 mg tablet Take 1 tablet by mouth once daily. OLANZapine (ZYPREXA) 5 mg tablet TAKE 1 TABLET BY MOUTH ONCE DAILY AT BEDTIME. start on the day OF chemotherapy and TAKE for 5 (FIVE) nights buPROPion SR (WELLBUTRIN SR) 150 mg 12 hr tablet Take 1 tablet by mouth two times a day. lacosamide (VIMPAT) 150 mg tab Take 1 tablet by mouth two times a day for 180 days. prochlorperazine (COMPAZINE) 10 mg tablet Take 1 tablet by mouth every 4 hours as needed. ondansetron (ZOFRAN) 8 mg tablet Take 1 tablet by mouth every 8 hours as needed for nausea/vomiting. famotidine (PEPCID) 20 mg tablet Take 1 tablet by mouth two times a day. varenicline (CHANTIX) 1 mg tablet Take 1 tablet by mouth two times a day with meals. ibuprofen (MOTRIN) 200 mg tablet Take 200 mg by mouth every 6 hours as needed for pain. loperamide (IMODIUM A-D) 2 mg cap(s) Take 1 capsule by mouth four times a day as needed. pantoprazole DR (PROTONIX) 40 mg tablet Take 1 tablet by mouth daily at 6 am. acetaminophen (TYLENOL) 325 mg tablet 2 tablets by ORAL/FEEDING TUBE route every 4 hours as needed for pain. atorvastatin (LIPITOR) 40 mg tablet Take 40 mg by mouth once daily. DULoxetine (CYMBALTA) 60 mg capsule Take 60 mg by mouth once daily. ALLERGIES Allergen Reactions Eggs [Egg] Hives Latex Hives Penicillins Hives FAMILY HISTORY Problem Relation Age of Onset Systemic Lupus Erythematosus Mother Lung Cancer Mother COPD Father Diabetes Maternal Grandmother Diabetes Paternal Grandmother Colon Cancer Paternal Grandfather Anesthesia Problems No Family History Social History Tobacco Use Smoking status: Every Day Current packs/day: 0.00 Average packs/day: 1 pack/day for 42.0 years (42.0 ttl pk-yrs) Types: Cigarettes Start date: 08/25/1981 Last attempt to quit: 08/25/2023 Years since quittin.2 Passive exposure: Current Smokeless tobacco: Never Tobacco comments: 2cigs/day Vaping Use Vaping status: Never Used Substance Use Topics Alcohol use: Yes Comment: social Drug use: Not Currently PHYSICAL EXAMINATION: 11/08/24 1057 BP: 123/83 Pulse: 85 Resp: 18 Temp: 36.6 C (97.8 F) TempSrc: Temporal SpO2: 99% Weight: 76.9 kg (169 lb 8.5 oz) ECOG PERFORMANCE STATUS: 0 0- Fully active, able to carry on all pre-disease performance w/o restriction. General: WD/WN woman in NAD. HEENT: Sclerae anicteric, conjunctiva non-injected. Wearing mask. No temporal wasting. Lungs: easy work of breathing. Symmetric chest movement Abdominal: No obvious ascites or organomegaly. Extremities: No digital clubbing, cyanosis, or edema. Skin: No rash, petechiae or purpura. Neurological: AOx3, mood and affect appropriate. Gait nml. DIAGNOSTIC STUDIES: LABS: Latest Ref Rng & Units 11/08/2024 CBC WBC 3.70 - 11.00 k/uL 8.68 RBC 3.90 - 5.20 m/uL 3.83 Hemoglobin 11.5 - 15.5 g/dL 13.3 Hematocrit 36.0 - 46.0 % 38.9 MCV 80.0 - 100.0 fL 101.6 MCH 26.0 - 34.0 pg 34.7 MCHC 30.5 - 36.0 g/dL 34.2 RDW-CV 11.5 - 15.0 % 14.9 Platelet Count 150 - 400 k/uL 351 MPV 9.0 - 12.7 fL 8.1 Baso% % 0.6 Abs Neut (ANC) 1.45 - 7.50 k/uL 4.32 Abs Lymph 1.00 - 4.00 k/uL 3.50 Abs Johnston <0.87 k/uL 0.65 Abs Eosin <0.46 k/uL 0.12 Abs Baso <0.11 k/uL 0.05 NRBC /100 WBC 0.0 Latest Ref Rng & Units 10/18/2024 CMP Sodium 136 - 144 mmol/L 139 Potassium 3.7 - 5.1 mmol/L 4.2 Chloride 98 - 107 mmol/L 105 CO2 22 - 30 mmol/L 24 Glucose 74 - 99 mg/dL 88 BUN 7 - 21 mg/dL 15 Creatinine 0.58 - 0.96 mg/dL 0.90 EGFR >=60 mL/min/1.73m 75 Protein, Total 6.3 - 8.0 g/dL 7.0 Albumin 3.9 - 4.9 g/dL 4.1 Calcium 8.5 - 10.2 mg/dL 9.5 Bilirubin, Total 0.2 - 1.3 mg/dL <0.2 AST 13 - 35 U/L 36 ALT 7 - 38 U/L 32 Alkaline Phosphatase 34 - 123 U/L 137 No results for input(s): APTT, PTSEC, INR, FIBRAG, DDMER in the last 6720 hours. IMAGING: CT CHEST WO IVCON Result Date: 11/04/2024 IMPRESSION: 1. No significant interval change in CT appearance of the chest. Persistent consolidative opacity within the apicoposterior segment of the left upper lobe and lingula, when compared to the prior examination, which may relate to posttherapy change; however, continued interval surveillance is recommended. 2. Stable groundglass attenuation nodular opacity is within the right upper lobe, measuring up to 1.7 cm. Other smaller groundglass attenuation nodular opacities are also stable. 3. No mili lymphadenopathy is seen within the chest. 4. Stable small pericardial effusion. Breakfast Cook: PSCB Transcribe Date/Time: Nov 04 2024 10:17A Dictated by : BISHOP GUY MD This examination was interpreted and the report reviewed and electronically signed by: BISHOP GUY MD on Nov 04 2024 6:43PM EST PATHOLOGY: No new pathology IMPRESSION AND PLAN: 54 y/o female with [id number] stage SUE lung adenocarcinoma with brain met s/p GKRS. PD-L1 99% and molecular data revealed KRAS G12C mutation. #Met lung adenocarcinoma Received 4 cycles of [id number] since 08/10. Significant side effects fatigue and neuropathy led to holding 2nd cycle for one week and decreased dose by 20%. Most recent scans with stable disease. Today, patient is feeling well, labs OK; CT CHEST stable. Will proceed with maintenance therapy but drop Pemetrexed and continue with Pembro 400mg q6 weeks. RV in [address] CHEST in 12 weeks. If she progresses on treatment, will explore targeted or clinical trials for her KRAS G12C mutation. #Brain Mets - s/p GKRS. Repeat MRI showing resolution of lesion. F/u with BTI # LE swelling: - Most likely secondary to pemetrexed. Improved. #Breast nodule - Seen on CT chest, slight FDG avid; 11/11 US biopsy and clip placement. Invasive ductal carcinoma ER+/OH+; referred for surgery. S/p surgery 01/06/24 [id number] ER [place] pos. Her2 neg. Following with local oncology Joleen Jiang Additional intake questions: Has the patient had fever, nausea, vomiting, diarrhea, constipation, fatigue for > 1 week? Yes, fatigue and Provider Notified Does the patient have a decreased appetite? No Does patient want to see a Wind Farm Operations Manager? No (yes to any of above refer patient to schedulers for dietitian appointment) ) Does patient have any new or increased numbness or tingling of extremities? No Is patient interested in fertility information? NA Does patient need any prescription refills? No Does patient have an advanced directive in place? No documented in this encounter [facility] 11-08-2024 Note [facility] 11-04-2024 History of Present illness Narrative Radiology Service Progress Note PATIENT NAME: Lashell Segura DATE OF SERVICE: November 04, 2024 TIME: 9:01 AM PATIENT IDENTITY VERIFICATION COMPLETED USING TWO (2) IDENTIFIERS: Name and Date of confirmed by patient verbally and Name and Date of confirmed by identification band. FALL SCREENING: Has the patient had 2 falls in the last year or 1 fall with injury or currently using an Ambulatory Assistive Device (Walker, Cane, Wheelchair, Crutches, etc.)? No PATIENT GENDER DATA: Assigned female at . status: : No status: NO. PATIENT RELEVANT IMPLANT DATA REVIEWED: Not Applicable PATIENT PRESENTS WITH AN IMPLANTABLE OR ATTACHED CARPENTER APPRENTICE: No RADIOLOGY DEPARTMENT: CT; Exam(s) Completed: Chest PERIPHERAL IV DATA: Not applicable SIGNED BY: RT Angelica(Sherif) November 04, 2024 9:01 AM documented in this encounter [facility] 11-04-2024 Note HNO ID: [id number] Author: ANTONIO XAVIER RT (R) Service: Radiology Author Type: Technologist Type: Progress Notes Filed: 11/04/2024 09:01 Note Text: Radiology Service Progress Note PATIENT NAME: Lashell Segura DATE OF SERVICE: November 04, 2024 TIME: 9:01 AM PATIENT IDENTITY VERIFICATION COMPLETED USING TWO (2) IDENTIFIERS: Name and Date of confirmed by patient verbally and Name and Date of confirmed by identification band. FALL SCREENING: Has the patient had 2 falls in the last year or 1 fall with injury or currently using an Ambulatory Assistive Device (Walker, Cane, Wheelchair, Crutches, etc.)? No PATIENT GENDER DATA: Assigned female at . status: : No status: NO. PATIENT RELEVANT IMPLANT DATA REVIEWED: Not Applicable PATIENT PRESENTS WITH AN IMPLANTABLE OR ATTACHED CARPENTER APPRENTICE: No RADIOLOGY DEPARTMENT: CT; Exam(s) Completed: Chest PERIPHERAL IV DATA: Not applicable SIGNED BY: RT Angelica(Sherif) November 04, 2024 9:01 AM [facility] 10-28-2024 Note [facility] 10-28-2024 History of Present illness Narrative Images from the original note were not included. Neurological [facility] NEURO-ONCOLOGY OUTPATIENT NOTE PURPOSE OF VISIT: Ongoing patient management CHIEF COMPLAINT : Brain met MEDICAL DECISION MAKING Assessment & Plan 1. 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 - New MRI brain scan today appears stable - Noted, no evidence of new intracranial metastases - Recommend follow up appointment with a new MRI brain scan in 3 months - Reviewed signs and symptoms that would prompt sooner evaluation - She has our contact information and was advised to call if new symptoms, questions or concerns arise prior to next scheduled visit. - All questions were answered. Portions of this note have been copied and updated appropriately. I spent a total of 30 minutes on the date of the service which included preparing to see the patient, [id number] patient care, completing clinical documentation, obtaining and/or reviewing separately obtained history, performing a medically appropriate examination, counseling and educating the patient/family/caregiver, ordering medications, tests, or procedures, communicating with other HCPs (not separately reported), independently interpreting results (not separately reported), communicating results to the patient/family/caregiver, and care coordination (not separately reported). Mariela Rivera APRN.SLOT MACHINE KEY PERSON cc: Connor Servin MD & Joleen Jiang MD & Mrak Mcdonnell MD - [facility] Subjective HISTORY OF PRESENT ILLNESS: Lashell Segura is a pleasant 54 year old year old left-handed female being seen for evaluation of previously diagnosed lung adenocarcinoma. 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 She is s/p GKRS by Dr. Connor Servin and Dr. Chandler Lieberman on 07/28/23 to 1) Left temporal. Primary cancer site : Lung Primary oncologist : Dr. Joleen Jiang Current systemic treatment : Pembrolizumab & Pemetrexed Current steroids : None Interval history: 01/08/24 Presents today with her daughter for follow-up with a new MRI brain scan for review. Reports some shakiness in both hands. She is following driving restrictions. 04/22/24 Presents today unaccompanied for follow-up with a new MRI brain scan for review. Since last visit, she has started taking Lasix for swelling in legs (improved). Has been trying to limit amount of Tylenol that she is taking for headaches/body aches. 07/29/24 Presents today unaccompanied for follow-up with a new MRI brain scan for review. Leg swelling is now constant (previously it was transient); still taking Lasix and wearing compression stockings. No new neurologic symptoms for concerns. 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 10/28/24 Presents today unaccompanied for follow-up with a new MRI brain scan for review. Since last visit, no new neurologic symptoms or concerns. No recent seizures. Leg swelling has improved since beginning Lasix. Social History Tobacco Use Smoking status: Every Day Current packs/day: 0.00 Average packs/day: 1 pack/day for 42.0 years (42.0 ttl pk-yrs) Types: Cigarettes Start date: 08/25/1981 Last attempt to quit: 08/25/2023 Years since quittin.1 Passive exposure: Current Smokeless tobacco: Never Tobacco comments: 2cigs/day Vaping Use Vaping status: Never Used Substance Use Topics Alcohol use: Yes Comment: social Drug use: Not Currently PAST MEDICAL HISTORY Diagnosis Date Brain tumor (HCC) Epilepsy (HCC) Lung cancer (HCC) FAMILY HISTORY Problem Relation Age of Onset Systemic Lupus Erythematosus Mother Lung Cancer Mother COPD Father Diabetes Maternal Grandmother Diabetes Paternal Grandmother Colon Cancer Paternal Grandfather Anesthesia Problems No Family History Current Outpatient Medications Medication Sig albuterol sulfate 90 mcg/actuation breath activated powder inhaler Inhale 1 Puff as instructed every 6 hours as needed for wheezing/shortness of breath. lidocaine (SALONPAS) 4 % patch Apply 1 Patch as directed once daily. pyridoxine, vitamin B6, (VITAMIN B6) 100 mg tablet Take 1 tablet by mouth once daily. OLANZapine (ZYPREXA) 5 mg tablet TAKE 1 TABLET BY MOUTH ONCE DAILY AT BEDTIME. start on the day OF chemotherapy and TAKE for 5 (FIVE) nights buPROPion SR (WELLBUTRIN SR) 150 mg 12 hr tablet Take 1 tablet by mouth two times a day. furosemide (LASIX) 20 mg tablet TAKE 1 TABLET BY MOUTH ONCE DAILY lacosamide (VIMPAT) 150 mg tab Take 1 tablet by mouth two times a day for 180 days. prochlorperazine (COMPAZINE) 10 mg tablet Take 1 tablet by mouth every 4 hours as needed. ondansetron (ZOFRAN) 8 mg tablet Take 1 tablet by mouth every 8 hours as needed for nausea/vomiting. folic acid 1 mg tablet take 1 tablet by mouth once daily famotidine (PEPCID) 20 mg tablet Take 1 tablet by mouth two times a day. varenicline (CHANTIX) 1 mg tablet Take 1 tablet by mouth two times a day with meals. ibuprofen (MOTRIN) 200 mg tablet Take 200 mg by mouth every 6 hours as needed for pain. loperamide (IMODIUM A-D) 2 mg cap(s) Take 1 capsule by mouth four times a day as needed. pantoprazole DR (PROTONIX) 40 mg tablet Take 1 tablet by mouth daily at 6 am. acetaminophen (TYLENOL) 325 mg tablet 2 tablets by ORAL/FEEDING TUBE route every 4 hours as needed for pain. atorvastatin (LIPITOR) 40 mg tablet Take 40 mg by mouth once daily. DULoxetine (CYMBALTA) 60 mg capsule Take 60 mg by mouth once daily. No current facility-administered medications for this visit. REVIEW OF SYSTEMS : Neurological : + Complaint of headaches, chronic (uses Tylenol prn as above) No complaint of tinnitus No complaint of decreased hearing No complaint of diplopia + Complaints of blurred vision. No complaint of vision loss + Complaint of arm/leg numbness or tingling, hands/feet No problem with limb coordination or imbalance No complaint of syncope or LOC or falls + Complaint of tremor/shakiness, as above + Complaint of dizziness/vertigo, transient + Complaint of seizures, as above, [facility] (on Vimpat) No complaints of memory changes, confusion, or disorientation. Objective PHYSICAL EXAMINATION: BP 115/75 Pulse 76 Ht 162.6 cm (5' 4) Wt 78.1 kg (172 lb 2.9 oz) LMP 05/25/2016 SpO2 98% BMI 29.55 kg/m General appearance: Well appearing, alert, in no acute distress, well-hydrated, well nourished. NEUROLOGICAL EXAM: Higher integrative functions: Oriented to person, place & time. Attention Span and Concentration: Good. Language: Good comprehension. Fund of Knowledge: Good. 2nd CN: Full visual adam. 3rd,4th,6th CN: Pupils (=), round, react to light, full extraocular movements. 5th CN: No decrease in facial sensation 7th CN: Facial muscles symmetric and strong. 8th CN: Hears finger rub well bilaterally. 9th CN: + Gag not tested 10th CN: Spontaneous palate movement, full and symmetric. 11th CN: Full strength in shoulder shrug. 12th CN: Tongue protrusion full and midline. Sensation: No decrease in sensation in upper or lower limbs to touch. Musculoskeletal: Able to stand and ambulate independently with steady gait. Motor: 5/5, R=L, UE=LE. Coordination: Rapid alternating movements fast and smooth all limbs. IMAGING STUDIES: MRI BRAIN WO/W IVCON IMPRESSION: Stable MRI of the brain compared to 07/29/2024 without evidence of new or progressive intracranial metastatic disease. Breakfast Cook: EVGENY Transcribe Date/Time: Oct 28 2024 9:28A Dictated by : LAYNE PITTS MD This examination was interpreted and the report reviewed and electronically signed by: LAYNE PITTS MD on Oct 28 2024 9:48AM EST * * *Final Report* * * DATE OF EXAM: Oct 28 2024 9:01AM [facility] 0295 - MRI BRAIN WO/W IVCON / PROCEDURE REASON: C79.31-Metastasis to brain (HCC) * * * * Physician Interpretation * * * * EXAMINATION: MRI BRAIN WO/W IVCON CLINICAL HISTORY: Intracranial metastases, history of adenocarcinoma of the lung with intracranial metastases status post radiosurgery 07/28/2023. TECHNIQUE: Routine brain MRI protocol without and with contrast including diffusion images. Perfusion: MR perfusion study was performed of the entire brain following bolus intravenous administration of gadolinium utilizing dynamic susceptibility-weighted contrast-enhanced acquisition. MQ: [id number] Contrast: 15 mL Dotarem IV COMPARISON: MRI brain 07/29/2024 RESULT: Acute Change: There is no evidence of an acute intracranial process. Hemorrhage: No evidence of prior parenchymal hemorrhage on the susceptibility weighted images. Mass Lesion/ Mass Effect: No evidence of an intracranial mass or extra-axial fluid collection. No abnormal parenchymal or leptomeningeal enhancement is noted following contrast administration. No significant mass effect. No perfusion abnormalities noted. Chronic Change: Scattered punctate foci of increased T2 and FLAIR signal are noted in the supratentorial white matter which is a nonspecific finding, unchanged from the prior exam. Parenchyma: No significant volume loss for age. The brain parenchyma is otherwise within normal limits of signal intensity and morphology. Ventricles: Normal caliber and morphology. Skull Base: Hypothalamic and pituitary region are grossly normal. Craniocervical junction is normal. No significant marrow replacement process. Vasculature: Major intracranial arterial structures, and dural venous sinuses show typical flow void, suggesting patency by spin echo criteria. Other: Bilateral mastoid effusions. Mild mucosal thickening in the bilateral maxillary sinuses and right sphenoid sinus. The visualized paranasal sinuses and mastoid air cells are otherwise clear. The orbits and extracranial soft tissues are unremarkable. KPS: 90 documented in this encounter [facility] 10-28-2024 History of Present illness Narrative Radiology Service Progress Note DATE OF SERVICE: October 28, 2024 TIME: 8:23 AM PATIENT IDENTITY VERIFICATION COMPLETED USING TWO (2) STANDARD IDENTIFIERS: Name and Date of confirmed by patient verbally and Name and Date of confirmed by identification band. FALL SCREENING: Has the patient had 2 falls in the last year or 1 fall with injury or currently using an Ambulatory Assistive Device (Walker, Cane, Wheelchair, Crutches, etc.)? No PATIENT GENDER DATA: Assigned female at . status: : No status: NO. PATIENT RELEVANT IMPLANT DATA REVIEWED: Yes PATIENT PRESENTS WITH AN IMPLANTABLE OR ATTACHED CARPENTER APPRENTICE: No ALLERGIES: Reviewed and unchanged CONTRAST ALLERGY: NO. EXAM: MRI - CONTRAST TYPE: GROUP II PERIPHERAL IV DATA: SHASHANK RN IV RADIOLOGY DEPARTMENT: MR; Exam(s) Completed: Head: Routine Brain with Perfusion SIGNATURE: NATHANAEL Ramirez PATIENT NAME: Lashell Segura DATE: October 28, 2024 TIME: 8:23 AM documented in this encounter [facility] 10-28-2024 Note HNO ID: [id number] Author: LINDA GARCIA RT(R) Service: Radiology Author Type: Technologist Type: Progress Notes Filed: 10/28/2024 08:24 Note Text: Radiology Service Progress Note DATE OF SERVICE: October 28, 2024 TIME: 8:23 AM PATIENT IDENTITY VERIFICATION COMPLETED USING TWO (2) STANDARD IDENTIFIERS: Name and Date of confirmed by patient verbally and Name and Date of confirmed by identification band. FALL SCREENING: Has the patient had 2 falls in the last year or 1 fall with injury or currently using an Ambulatory Assistive Device (Walker, Cane, Wheelchair, Crutches, etc.)? No PATIENT GENDER DATA: Assigned female at . status: : No status: NO. PATIENT RELEVANT IMPLANT DATA REVIEWED: Yes PATIENT PRESENTS WITH AN IMPLANTABLE OR ATTACHED CARPENTER APPRENTICE: No ALLERGIES: Reviewed and unchanged CONTRAST ALLERGY: NO. EXAM: MRI - CONTRAST TYPE: GROUP II PERIPHERAL IV DATA: RAD RN IV RADIOLOGY DEPARTMENT: MR; Exam(s) Completed: Head: Routine Brain with Perfusion SIGNATURE: NATHANAEL Ramirez PATIENT NAME: Lashell Segura DATE: October 28, 2024 TIME: 8:23 AM [facility] 10-28-2024 Nurse Note Radiology Service Progress Note DATE OF SERVICE: October 28, 2024 TIME: 8:37 AM PATIENT WEIGHT: LBS PATIENT IDENTITY VERIFICATION COMPLETED USING TWO (2) STANDARD IDENTIFIERS: Name and Date of confirmed by patient verbally. FALL SCREENING: Has the patient had 2 falls in the last year or 1 fall with injury or currently using an Ambulatory Assistive Device (Walker, Cane, Wheelchair, Crutches, etc.)? No PATIENT GENDER DATA: Assigned female at . status: : No status: NO. ALLERGIES: Reviewed and unchanged CONTRAST ALLERGY: No EXAM: MRI - CONTRAST TYPE: GROUP II IV SITE: Ambulatory: A peripheral IV was started in the Left antecubital site with a Angio cath: 22 gauge. IV started with US guidance IV SITE APPEARANCE: Clean,Dry and Intact SIGNATURE: Ting Dawson RN PATIENT NAME: Lashell Segura DATE: October 28, 2024 TIME: 8:37 AM [facility] 10-28-2024 Nurse Note Radiology Service Progress Note DATE OF SERVICE: October 28, 2024 TIME: 8:37 AM PATIENT WEIGHT: LBS PATIENT IDENTITY VERIFICATION COMPLETED USING TWO (2) STANDARD IDENTIFIERS: Name and Date of confirmed by patient verbally. FALL SCREENING: Has the patient had 2 falls in the last year or 1 fall with injury or currently using an Ambulatory Assistive Device (Walker, Cane, Wheelchair, Crutches, etc.)? No PATIENT GENDER DATA: Assigned female at . status: : No status: NO. ALLERGIES: Reviewed and unchanged CONTRAST ALLERGY: No EXAM: MRI - CONTRAST TYPE: GROUP II IV SITE: Ambulatory: A peripheral IV was started in the Left antecubital site with a Angio cath: 22 gauge. IV started with US guidance IV SITE APPEARANCE: Clean,Dry and Intact SIGNATURE: Ting Dawson RN PATIENT NAME: Lashell Segura DATE: October 28, 2024 TIME: 8:37 AM documented in this encounter [facility] 10-18-2024 Note [facility] 10-18-2024 History of Present illness Narrative Additional intake questions: Has the patient had fever, nausea, vomiting, diarrhea, constipation, fatigue for > 1 week? Yes, fatigue and Provider Notified Does the patient have a decreased appetite? No Does patient want to see a Wind Farm Operations Manager? No (yes to any of above refer patient to schedulers for dietitian appointment) ) Does patient have any new or increased numbness or tingling of extremities? Yes, hands and feet Is patient interested in fertility information? No Does patient need any prescription refills? No Does patient have an advanced directive in place? No, Patient referred to [facility] Thoracic Oncology Physician Slurry Man Established Patient Visit October 18, 2024 Portions of this encounter note have been copied from Dr. Jiang previous note dated, 09/27/24, which has been updated where appropriate and all reflect current medical decision making from today, 10/18/2024. ATTENDING PHYSICIAN: Dr. Jiang DIAGNOSIS: [id number] stage SUE lung adenocarcinoma. BIOMARKERS: Interval molecular data have demonstrated PD-L1 99%, KRAS G12C+; Previous TREATMENT: GKRS to brain mets 07/28/23 [id number] 08/10/2023- 10/29/23 Current Treatment: Pemetrexed/Pembrolizumab 11/26/23-present INTERVAL HISTORY: Ms. Segura is a 54 year old female who presents for management of metastatic lung adenocarcinoma. She is overall doing well. Reports when she walks outside into colder weather she has noticed some shortness of breath, does not use inhalers. Continues to smoke 1.5 cigarettes/day. Compliant with folic acid. The remainder of the review of systems is negative. REVIEW OF SYSTEMS: The remainder of the review of systems is negative. Medications: pyridoxine, vitamin B6, (VITAMIN B6) 100 mg tablet^Take 1 tablet by mouth once daily.^Disp: 90 tablet^Rfl: 3 OLANZapine (ZYPREXA) 5 mg tablet^TAKE 1 TABLET BY MOUTH ONCE DAILY AT BEDTIME. start on the day OF chemotherapy and TAKE for 5 (FIVE) nights^Disp: 30 tablet^Rfl: 1 buPROPion SR (WELLBUTRIN SR) 150 mg 12 hr tablet^Take 1 tablet by mouth two times a day.^Disp: 60 tablet^Rfl: 2 furosemide (LASIX) 20 mg tablet^TAKE 1 TABLET BY MOUTH ONCE DAILY^Disp: 30 tablet^Rfl: 1 lacosamide (VIMPAT) 150 mg tab^Take 1 tablet by mouth two times a day for 180 days.^Disp: 180 tablet^Rfl: 1 prochlorperazine (COMPAZINE) 10 mg tablet^Take 1 tablet by mouth every 4 hours as needed.^Disp: 30 tablet^Rfl: 1 ondansetron (ZOFRAN) 8 mg tablet^Take 1 tablet by mouth every 8 hours as needed for nausea/vomiting.^Disp: 30 tablet^Rfl: 3 folic acid 1 mg tablet^take 1 tablet by mouth once daily^Disp: 30 tablet^Rfl: 5 famotidine (PEPCID) 20 mg tablet^Take 1 tablet by mouth two times a day.^Disp: 40 tablet^Rfl: 0 varenicline (CHANTIX) 1 mg tablet^Take 1 tablet by mouth two times a day with meals.^Disp: 60 tablet^Rfl: 1 ibuprofen (MOTRIN) 200 mg tablet^Take 200 mg by mouth every 6 hours as needed for pain.^Disp: ^Rfl: loperamide (IMODIUM A-D) 2 mg cap(s)^Take 1 capsule by mouth four times a day as needed.^Disp: 30 capsule^Rfl: [address] (PROTONIX) 40 mg tablet^Take 1 tablet by mouth daily at 6 am.^Disp: 30 tablet^Rfl: 0 acetaminophen (TYLENOL) 325 mg tablet^2 tablets by ORAL/FEEDING TUBE route every 4 hours as needed for pain.^Disp: ^Rfl: atorvastatin (LIPITOR) 40 mg tablet^Take 40 mg by mouth once daily.^Disp: ^Rfl: DULoxetine (CYMBALTA) 60 mg capsule^Take 60 mg by mouth once daily.^Disp: ^Rfl: albuterol sulfate 90 mcg/actuation breath activated powder inhaler^Inhale 1 Puff as instructed every 6 hours as needed for wheezing/shortness of breath.^Disp: 1 Each^Rfl: 2 lidocaine (SALONPAS) 4 % patch^Apply 1 Patch as directed once daily.^Disp: 10 Patch^Rfl: 0 Allergies: ALLERGIES Allergen Reactions Eggs [Egg] Hives Latex Hives Penicillins Hives PAST MEDICAL HISTORY Diagnosis Date Brain tumor (HCC) Epilepsy (HCC) Lung cancer (HCC) Social History Tobacco Use Smoking status: Every Day Current packs/day: 0.00 Average packs/day: 1 pack/day for 42.0 years (42.0 ttl pk-yrs) Types: Cigarettes Start date: 08/25/1981 Last attempt to quit: 08/25/2023 Years since quittin.1 Passive exposure: Current Smokeless tobacco: Never Tobacco comments: 2cigs/day Vaping Use Vaping status: Never Used Substance Use Topics Alcohol use: Yes Comment: social Drug use: Not Currently Problem List: ACTIVE PROBLEM LIST Adenocarcinoma of Lung, Stage 4 (Hcc) - 09/27/2024 S/P Lumpectomy of Breast - 02/13/2024 Neoplasm of Lung - 08/04/2023 Lung Mass - 07/21/2023 Breast Nodule - 07/21/2023 Tobacco Abuse - 07/21/2023 Vasogenic Brain Edema (Hcc) - 07/21/2023 At Risk for Lymphedema - 07/21/2023 Seizure (Hcc) - 07/21/2023 Metastasis to Brain (Hcc) - 07/20/2023 PHYSICAL EXAM: Vitals BP 121/79 Pulse 94 Temp 36.6 C (97.9 F) (Temporal) Resp 20 Wt 77.9 kg (171 lb 11.8 oz) LMP 05/25/2016 SpO2 98% BMI 29.48 kg/m ECOG PERFORMANCE STATUS: 0- Fully active, able to carry on all pre-disease performance w/o restriction. Physical Exam Vitals and nursing note reviewed. Constitutional: General: She is not in acute distress. Appearance: Normal appearance. She is not ill-appearing or toxic-appearing. HENT: Head: Normocephalic and atraumatic. Right Ear: External ear normal. Left Ear: External ear normal. Nose: Nose normal. Mouth/Throat: Mouth: Mucous membranes are moist. Eyes: General: Right eye: No discharge. Left eye: No discharge. Cardiovascular: Rate and Rhythm: Normal rate and regular rhythm. Heart sounds: Normal heart sounds. Pulmonary: Effort: Pulmonary effort is normal. No respiratory distress. Breath sounds: Normal breath sounds. No stridor. No wheezing, rhonchi or rales. Abdominal: General: Abdomen is flat. Tenderness: There is no abdominal tenderness. There is no guarding or rebound. Musculoskeletal: General: Normal range of motion. Cervical back: Normal range of motion. Skin: General: Skin is warm and dry. Neurological: General: No focal deficit present. Mental Status: She is alert and oriented to person, place, and time. Psychiatric: Mood and Affect: Mood normal. Behavior: Behavior normal. Thought Content: Thought content normal. Judgment: Judgment normal. Laboratory Data WBC (k/uL) Date Value 10/18/2024 7.29 RBC (m/uL) Date Value 10/18/2024 3.59 (L) Hemoglobin (g/dL) Date Value 10/18/2024 12.5 Hematocrit (%) Date Value 10/18/2024 35.7 (L) MCV (fL) Date Value 10/18/2024 99.4 MCH (pg) Date Value 10/18/2024 34.8 (H) MCHC (g/dL) Date Value 10/18/2024 35.0 RDW-CV (%) Date Value 10/18/2024 14.5 Platelet Count (k/uL) Date Value 10/18/2024 450 (H) MPV (fL) Date Value 10/18/2024 8.2 (L) Neutrophils % (%) Date Value 10/18/2024 49.9 Lymphocytes % (%) Date Value 10/18/2024 36.6 Monocytes % (%) Date Value 10/18/2024 9.5 Eosinophils % (%) Date Value 10/18/2024 2.9 Basophils % (%) Date Value 10/18/2024 0.8 Abs Neut (k/uL) Date Value 10/18/2024 3.64 Abs Johnston (k/uL) Date Value 10/18/2024 0.69 Abs Eosin (k/uL) Date Value 10/18/2024 0.21 Abs Baso (k/uL) Date Value 10/18/2024 0.06 Glucose (mg/dL) Date Value 10/18/2024 88 BUN (mg/dL) Date Value 10/18/2024 15 Creatinine (mg/dL) Date Value 10/18/2024 0.90 Sodium (mmol/L) Date Value 10/18/2024 139 Potassium (mmol/L) Date Value 10/18/2024 4.2 Chloride (mmol/L) Date Value 10/18/2024 105 CO2 (mmol/L) Date Value 10/18/2024 24 Protein, Total (g/dL) Date Value 10/18/2024 7.0 Albumin (g/dL) Date Value 10/18/2024 4.1 Calcium, Total (mg/dL) Date Value 10/18/2024 9.5 Alkaline Phosphatase (U/L) Date Value 10/18/2024 137 (H) Bilirubin, Total (mg/dL) Date Value 10/18/2024 <0.2 (L) AST (U/L) Date Value 10/18/2024 36 (H) ALT (U/L) Date Value 10/18/2024 32 No results found for: CEA No results found for: [id number] TSH (mIU/L) Date Value 09/27/2024 1.640 09/03/2024 1.320 07/19/2024 0.997 Imaging: Last CT/CTA Chest/Lungs CT CHEST WO IVCON Exam End: 08/26/2024 4:06 PM (Final result) Narrative: * * *Final Report* * * DATE OF EXAM: Aug 26 2024 4:06PM [facility] [place] CHEST WO IVCON / PROCEDURE REASON: C34.90-Adenocarcinoma of lung, stage 4, unspecified laterality (HCC) * * * * Physician Interpretation * * * * EXAMINATION: CHEST CT WITHOUT CONTRAST CLINICAL HISTORY: Lung carcinoma. Technique: Spiral CT acquisition of the chest from the thoracic inlet to the upper abdomen without contrast. MQ: [id number]_6 CT Radiation dose: Integrated Dose-length product (DLP) for this visit = 224 mGy*cm CT Dose Reduction Employed: Automated exposure control(AEC) and iterative recon Comparison: 06/01/2024 RESULT: Limitations: None. Lines, tubes, and devices: None. Lung parenchyma and airways: Emphysema mild, diffuse bronchiectasis. There is biapical fibrosis. Persistent consolidative opacity within the apicoposterior segment of the left upper lobe and lingula, when compared the prior examination, which may relate to post therapy change; however, continued interval surveillance is recommended. Atelectasis is seen within the right middle lobe. Stable groundglass attenuation nodular opacity is seen within the anterior segment right upper lobe, measuring approximately 1.7 cm (series 2, image #69). Other groundglass attenuation nodule opacities are also stable. Pleural space: There is no pleural effusion. Lower neck, lymph nodes, and mediastinum: Again seen are surgical clips within the right lateral breast and right axilla. There are no pathologically enlarged axillary, mediastinal, or hilar lymph nodes. Heart, pericardium, and thoracic vessels: Atherosclerotic calcifications are present within thoracic aorta. Fatty hypertrophy of the intra-atrial septum. The heart is normal in size. Stable small pericardial effusion, when compared to the prior examination. Bones and soft tissues: There is scoliosis and multilevel degenerative change seen within the thoracic spine. A few presumed bone islands are seen in the osseous structures. Loose bodies about the left shoulder. Mild scoliosis of thoracic spine, convex to the left. Vacuum disc phenomena is seen at multiple levels. Stable mild compression deformity seen involving the T11 vertebral body, when compared to the prior examination. Again seen is a nonunited fracture involving the left lateral ninth rib. Upper abdomen: Nonspecific wall thickening of the stomach likely relates to underdistention. A few small splenules are incidentally noted within left upper quadrant. There is mild, nonspecific bilateral perinephric fat stranding. Impression: IMPRESSION: 1. Persistent consolidative opacity within the apicoposterior segment of the left upper lobe and lingula, when compared to the prior examination, which may relate to post therapy change; however, continued interval surveillance is recommended. 2. Stable groundglass attenuation nodular opacity is within the right upper lobe, measuring up to 1.7 cm. Other groundglass attenuation nodular opacities are also stable. 3. No mili lymphadenopathy is seen within the chest. 4. Stable small pericardial effusion. Breakfast Cook: PSCB Transcribe Date/Time: Aug 29 2024 8:33A Dictated by : BISHOP GUY MD This examination was interpreted and the report reviewed and electronically signed by: BISHOP GUY MD on Aug 29 2024 8:39AM EST ASSESSMENT/PLAN: Ms. Segura is a 54 year old female with metastatic lung adenocarcinoma.. She presents today for routine monitoring and pretreatment evaluation. (C34.90) Adenocarcinoma of lung, stage 4, unspecified laterality (HCC) (primary encounter diagnosis) (Z51.11, Z51.12) Encounter for antineoplastic chemotherapy and immunotherapy Comment: Labs reviewed and meet treatment parameters. Doing well clinically. Tolerating treatments without much difficulty. Plan: # Proceed with next cycle of maintenance pemetrexed and pembrolizumab # Daily folic acid 1 mg supplement # Q9 weekly B12 injects, next today # CT scan 11/04 and follow up with Dr. Jiang 11/08 to discuss results. (R06.02) Shortness of breath Comment: when going outside into cold weather Plan: # Proventil inhaler to help with what appears to be bronchospasm I spent a total of 20 minutes on the date of the service which included preparing to see the patient, pzyx-zl-[id number] patient care, completing clinical documentation, obtaining and/or reviewing separately obtained history, performing a medically appropriate examination, counseling and educating the patient/family/caregiver, ordering medications, tests, or procedures, communicating with other HCPs (not separately reported), independently interpreting results (not separately reported), communicating results to the patient/family/caregiver, and care coordination (not separately reported). rTi Dickerson PA-C [facility] documented in this encounter [facility] 10-18-2024 Note [facility] 09-27-2024 History of Present illness Narrative Images from the original note were not included. [facility] ESTABLISHED PATIENT VISIT Department of Hematology and Medical Oncology (Elements copied from my note dated September 03, 2024, have been reviewed and updated where appropriate, and all reflect current assessment and medical decision making from today's encounter, September 27, 2024) DIAGNOSIS: [id number] stage SUE lung adenocarcinoma. BIOMARKERS: Interval molecular data have demonstrated PD-L1 99%, KRAS G12C+; Current Treatment: Pemetrexed/Pembrolizumab 11/26/23-present Previous TREATMENT: GKRS to brain mets 07/28/23 [id number] 08/10/2023- 10/29/23 HPI: Lashell Segura is a 54 year old female with diagnosis of stage IV non-small cell lung cancer, adenocarcinoma.Patient originally presented to with sudden onset expressive aphasia to the emergency room and had a witnessed generalized tonic-clonic seizure. Chest x-ray showed a left upper lobe mass concerning for malignancy. CT had showed left upper lobe lesion with significant vasogenic edema. Patient was [facility] for [facility] evaluation. CT chest abdomen pelvis done on July 21 showed a 4.2 x 3.6 cm lingular mass associated with occlusion of lingular bronchus. There is some postobstructive atelectasis. There are numerous bilateral solid/nonsolid nodules with the largest being 1.6 x 1.1 cm in the right lower lobe. There is a large left hilar lymph node 11 mm as well as enlarged right hilar lymph node 12 mm. T11 compression fracture. Right breast 11 mm nodule. MRI brain shows a 1 cm left temporal lobe mass. Patient has bronchoscopy and endobronchial biopsy of the left upper lobe lesion was positive for adenocarcinoma PD-L1 99% ALK negative remaining molecular pathology is negative. Patient received gamma knife treatment on July 28, 24 Anton in 1 fraction,with no significant side effects INTERVAL HISTORY: Patient continued maintenance pemetrexed /pembrolizumab. Currently, patient has no specific complaints. She denies fever, , chest pain, cough, SOB, abd pain diarrhea or constipation. REVIEW OF SYSTEMS: As described above. All other systems were reviewed and were negative. PAST MEDICAL HISTORY: PAST MEDICAL HISTORY Diagnosis Date Brain tumor (HCC) Epilepsy (HCC) Lung cancer (HCC) PAST SURGICAL HISTORY: PAST SURGICAL HISTORY Procedure Laterality Date SECTION HX KNEE SURGERY HX Right meniscus x2 REVISE MEDIAN N/CARPAL TUNNEL SURG Bilateral MEDICATIONS: pyridoxine, vitamin B6, (VITAMIN B6) 100 mg tablet Take 1 tablet by mouth once daily. OLANZapine (ZYPREXA) 5 mg tablet TAKE 1 TABLET BY MOUTH ONCE DAILY AT BEDTIME. start on the day OF chemotherapy and TAKE for 5 (FIVE) nights buPROPion SR (WELLBUTRIN SR) 150 mg 12 hr tablet Take 1 tablet by mouth two times a day. furosemide (LASIX) 20 mg tablet TAKE 1 TABLET BY MOUTH ONCE DAILY lacosamide (VIMPAT) 150 mg tab Take 1 tablet by mouth two times a day for 180 days. prochlorperazine (COMPAZINE) 10 mg tablet Take 1 tablet by mouth every 4 hours as needed. ondansetron (ZOFRAN) 8 mg tablet Take 1 tablet by mouth every 8 hours as needed for nausea/vomiting. folic acid 1 mg tablet take 1 tablet by mouth once daily lidocaine (SALONPAS) 4 % patch Apply 1 Patch as directed once daily. famotidine (PEPCID) 20 mg tablet Take 1 tablet by mouth two times a day. varenicline (CHANTIX) 1 mg tablet Take 1 tablet by mouth two times a day with meals. ibuprofen (MOTRIN) 200 mg tablet Take 200 mg by mouth every 6 hours as needed for pain. loperamide (IMODIUM A-D) 2 mg cap(s) Take 1 capsule by mouth four times a day as needed. pantoprazole DR (PROTONIX) 40 mg tablet Take 1 tablet by mouth daily at 6 am. acetaminophen (TYLENOL) 325 mg tablet 2 tablets by ORAL/FEEDING TUBE route every 4 hours as needed for pain. atorvastatin (LIPITOR) 40 mg tablet Take 40 mg by mouth once daily. DULoxetine (CYMBALTA) 60 mg capsule Take 60 mg by mouth once daily. ALLERGIES Allergen Reactions Eggs [Egg] Hives Latex Hives Penicillins Hives FAMILY HISTORY Problem Relation Age of Onset Systemic Lupus Erythematosus Mother Lung Cancer Mother COPD Father Diabetes Maternal Grandmother Diabetes Paternal Grandmother Colon Cancer Paternal Grandfather Anesthesia Problems No Family History Social History Tobacco Use Smoking status: Every Day Current packs/day: 0.00 Average packs/day: 1 pack/day for 42.0 years (42.0 ttl pk-yrs) Types: Cigarettes Start date: 08/25/1981 Last attempt to quit: 08/25/2023 Years since quittin.0 Passive exposure: Current Smokeless tobacco: Never Tobacco comments: 2cigs/day Vaping Use Vaping status: Never Used Substance Use Topics Alcohol use: Yes Comment: social Drug use: Not Currently PHYSICAL EXAMINATION: 09/27/24 1246 BP: 110/88 Pulse: 102 Resp: 16 Temp: 37.1 C (98.8 F) TempSrc: Temporal SpO2: 98% Weight: 77.2 kg (170 lb 3.1 oz) ECOG PERFORMANCE STATUS: 0 0- Fully active, able to carry on all pre-disease performance w/o restriction. .General: WD/WN woman in NAD. HEENT: Sclerae anicteric, conjunctiva non-injected. Wearing mask. No temporal wasting. Lungs: easy work of breathing. Symmetric chest movement Abdominal: No obvious ascites or organomegaly. Extremities: No digital clubbing, cyanosis, or edema. Skin: No rash, petechiae or purpura. Neurological: AOx3, mood and affect appropriate. Gait nml. DIAGNOSTIC STUDIES: LABS: Latest Ref Rng & Units 09/27/2024 CBC WBC 3.70 - 11.00 k/uL 8.98 RBC 3.90 - 5.20 m/uL 3.84 Hemoglobin 11.5 - 15.5 g/dL 13.5 Hematocrit 36.0 - 46.0 % 37.9 MCV 80.0 - 100.0 fL 98.7 MCH 26.0 - 34.0 pg 35.2 MCHC 30.5 - 36.0 g/dL 35.6 RDW-CV 11.5 - 15.0 % 13.6 Platelet Count 150 - 400 k/uL 291 MPV 9.0 - 12.7 fL 8.4 Baso% % 0.8 Abs Neut (ANC) 1.45 - 7.50 k/uL 5.68 Abs Lymph 1.00 - 4.00 k/uL 2.20 Abs Johnston <0.87 k/uL 0.88 Abs Eosin <0.46 k/uL 0.12 Abs Baso <0.11 k/uL 0.07 NRBC /100 WBC 0.0 Latest Ref Rng & Units 09/03/2024 CMP Sodium 136 - 144 mmol/L 140 Potassium 3.7 - 5.1 mmol/L 4.1 Chloride 98 - 107 mmol/L 103 CO2 22 - 30 mmol/L 25 Glucose 74 - 99 mg/dL 90 BUN 7 - 21 mg/dL 14 Creatinine 0.58 - 0.96 mg/dL 0.85 EGFR >=60 mL/min/1.73m 81 Protein, Total 6.3 - 8.0 g/dL 7.7 Albumin 3.9 - 4.9 g/dL 4.7 Calcium 8.5 - 10.2 mg/dL 9.7 Bilirubin, Total 0.2 - 1.3 mg/dL 0.3 AST 13 - 35 U/L 32 ALT 7 - 38 U/L 24 Alkaline Phosphatase 34 - 123 U/L 133 No results for input(s): APTT, PTSEC, INR, FIBRAG, DDMER in the last 6720 hours. IMAGING: CT CHEST WO IVCON Result Date: 08/29/2024 IMPRESSION: 1. Persistent consolidative opacity within the apicoposterior segment of the left upper lobe and lingula, when compared to the prior examination, which may relate to post therapy change; however, continued interval surveillance is recommended. 2. Stable groundglass attenuation nodular opacity is within the right upper lobe, measuring up to 1.7 cm. Other groundglass attenuation nodular opacities are also stable. 3. No mili lymphadenopathy is seen within the chest. 4. Stable small pericardial effusion. 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 PD-L1 99% and molecular data revealed KRAS G12C mutation. #Met lung adenocarcinoma Received 4 cycles of [id number] since 08/10. Significant side effects fatigue and neuropathy led to holding 2nd cycle for one week and decreased dose by 20%. Most recent scans with stable disease. Today, patient is feeling well, labs OK; Will proceed with maintenance regular dose. Has compazine to alternate with zofran. RV in [address] CHEST prior to October. - Will plan to give single agent IO in the future given high PD-L1 status. Will start Pembro 400 q6 weeks on November 08. If she progresses on treatment, will explore targeted or clinical trials for her KRAS G12C mutation. #Brain Mets - s/p GKRS. Repeat MRI showing resolution of lesion. F/u with BTI # LE swelling: - Most likely secondary to pemetrexed. Improved. #Breast nodule - Seen on CT chest, slight FDG avid; 11/11 US biopsy and clip placement. Invasive ductal carcinoma ER+/OH+; referred for surgery. S/p surgery 01/06/24 pT1N0 ER [place] pos. Her2 neg. Following with local oncology Joleen Jiang Additional intake questions: Has the patient had fever, nausea, vomiting, diarrhea, constipation, fatigue for > 1 week? Yes, fatigue Does the patient have a decreased appetite? No Does patient want to see a Wind Farm Operations Manager? No (yes to any of above refer patient to schedulers for dietitian appointment) ) Does patient have any new or increased numbness or tingling of extremities? No Is patient interested in fertility information? NA Does patient need any prescription refills? No Does patient have an advanced directive in place? not asked Electronically Signed By: Washington Elder LPN documented in this encounter [facility] 09-27-2024 Note [facility] 09-27-2024 Note [facility] 09-21-2024 Telephone encounter Note The following approved medication requests have been transmitted electronically. Requested Prescriptions Signed Prescriptions Disp Refills pyridoxine, vitamin B6, (VITAMIN B6) 100 mg tablet 90 tablet 3 Sig: Take 1 tablet by mouth once daily. Authorizing Provider: ANDREA GUADALUPE APRN.CNP [facility] 09-21-2024 Miscellaneous Notes The following approved medication requests have been transmitted electronically. Requested Prescriptions Signed Prescriptions Disp Refills pyridoxine, vitamin B6, (VITAMIN B6) 100 mg tablet 90 tablet 3 Sig: Take 1 tablet by mouth once daily. Authorizing Provider: ANDREA GUADALUPE APRN.CNP Prescription Refill: Requested by: pharmacy Please E-Scribe Caller Contact Number: Pharmacy Name: [email or web address] Pharmacy Number: [phone] Generic/ brand: 30 or 90 day supply requested: 90 Last appointment: 03/05/24 Next Appointment: 11/24/[address] Chance Segura [phone] [id number] [place] [address] documented in this encounter [facility] 09-21-2024 Telephone encounter Note Prescription Refill: Requested by: pharmacy Please E-Scribe Caller Contact Number: [facility] Name: [facility] Pharmacy Number: [phone] Generic/ brand: 30 or 90 day supply requested: 90 Last appointment: 03/05/24 Next Appointment: 11/24/[address] [facility] Segura [phone] [id number] [facility] [id number] [facility] 09-07-2024 History of Present illness Narrative Radiology Service Progress Note PATIENT NAME: Lashell Segura DATE OF SERVICE: September 07, 2024 TIME: 9:26 AM PATIENT IDENTITY VERIFICATION COMPLETED USING TWO (2) IDENTIFIERS: Name and Date of confirmed by patient verbally. FALL SCREENING: Has the patient had 2 falls in the last year or 1 fall with injury or currently using an Ambulatory Assistive Device (Walker, Cane, Wheelchair, Crutches, etc.)? No PATIENT GENDER DATA: Assigned female at . status: : No status: NO. PATIENT RELEVANT IMPLANT DATA REVIEWED: Not Applicable PATIENT PRESENTS WITH AN IMPLANTABLE OR ATTACHED CARPENTER APPRENTICE: No RADIOLOGY DEPARTMENT: Mammography PERIPHERAL IV DATA: Not applicable SIGNED BY: RT More September 07, 2024 9:26 AM documented in this encounter [facility] 09-07-2024 Note HNO ID: [id number] Author: JAMEL BATEMAN CT Service: Radiology Author Type: Technologist Type: Progress Notes Filed: 09/07/2024 09:26 Note Text: Radiology Service Progress Note PATIENT NAME: Lashell Segura DATE OF SERVICE: September 07, 2024 TIME: 9:26 AM PATIENT IDENTITY VERIFICATION COMPLETED USING TWO (2) IDENTIFIERS: Name and Date of confirmed by patient verbally. FALL SCREENING: Has the patient had 2 falls in the last year or 1 fall with injury or currently using an Ambulatory Assistive Device (Walker, Cane, Wheelchair, Crutches, etc.)? No PATIENT GENDER DATA: Assigned female at . status: : No status: NO. PATIENT RELEVANT IMPLANT DATA REVIEWED: Not Applicable PATIENT PRESENTS WITH AN IMPLANTABLE OR ATTACHED CARPENTER APPRENTICE: No RADIOLOGY DEPARTMENT: Mammography PERIPHERAL IV DATA: Not applicable SIGNED BY: RT More September 07, 2024 9:26 AM [facility] 09-03-2024 Note [facility] 09-03-2024 History of Present illness Narrative Images from the original note were not included. [facility] ESTABLISHED PATIENT VISIT Department of Hematology and Medical Oncology (Elements copied from my note dated July 19, , have been reviewed and updated where appropriate, and all reflect current assessment and medical decision making from today's encounter, September 03, 2024) DIAGNOSIS: [id number] stage SUE lung adenocarcinoma. BIOMARKERS: Interval molecular data have demonstrated PD-L1 99%, KRAS G12C+; Current Treatment: Pemetrexed/Pembrolizumab 11/26/23-present Previous TREATMENT: GKRS to brain mets 07/28/23 [id number] 08/10/2023- 10/29/23 HPI: Lashell Segura is a 54 year old female with diagnosis of stage IV non-small cell lung cancer, adenocarcinoma.Patient originally presented to with sudden onset expressive aphasia to the emergency room and had a witnessed generalized tonic-clonic seizure. Chest x-ray showed a left upper lobe mass concerning for malignancy. CT had showed left upper lobe lesion with significant vasogenic edema. [facility] was [facility] for [facility] evaluation. CT chest abdomen pelvis done on July 21 showed a 4.2 x 3.6 cm lingular mass associated with occlusion of lingular bronchus. There is some postobstructive atelectasis. There are numerous bilateral solid/nonsolid nodules with the largest being 1.6 x 1.1 cm in the right lower lobe. There is a large left hilar lymph node 11 mm as well as enlarged right hilar lymph node 12 mm. T11 compression fracture. Right breast 11 mm nodule. MRI brain shows a 1 cm left temporal lobe mass. Patient has bronchoscopy and endobronchial biopsy of the left upper lobe lesion was positive for adenocarcinoma PD-L1 99% ALK negative remaining molecular pathology is negative. Patient received gamma knife treatment on July 28, 24 Anton in 1 fraction,with no significant side effects INTERVAL HISTORY: Patient continued maintenance pemetrexed /pembrolizumab. Currently, patient has no specific complaints. She denies fever, , chest pain, cough, SOB, abd pain diarrhea or constipation. REVIEW OF SYSTEMS: As described above. All other systems were reviewed and were negative. PAST MEDICAL HISTORY: PAST MEDICAL HISTORY Diagnosis Date Brain tumor (HCC) Epilepsy (HCC) Lung cancer (HCC) PAST SURGICAL HISTORY: PAST SURGICAL HISTORY Procedure Laterality Date SECTION HX KNEE SURGERY HX Right meniscus x2 REVISE MEDIAN N/CARPAL TUNNEL SURG Bilateral MEDICATIONS: furosemide (LASIX) 20 mg tablet^TAKE 1 TABLET BY MOUTH ONCE DAILY^Disp: 30 tablet^Rfl: 1 OLANZapine (ZYPREXA) 5 mg tablet^Take 1 tablet by mouth daily at bedtime. Start on the day of chemotherapy and take for 5 night.^Disp: 30 tablet^Rfl: 1 lacosamide (VIMPAT) 150 mg tab^Take 1 tablet by mouth two times a day for 180 days.^Disp: 180 tablet^Rfl: 1 buPROPion SR (WELLBUTRIN SR) 150 mg 12 hr tablet^take 1 tablet by mouth twice daily^Disp: 60 tablet^Rfl: 2 prochlorperazine (COMPAZINE) 10 mg tablet^Take 1 tablet by mouth every 4 hours as needed.^Disp: 30 tablet^Rfl: 1 ondansetron (ZOFRAN) 8 mg tablet^Take 1 tablet by mouth every 8 hours as needed for nausea/vomiting.^Disp: 30 tablet^Rfl: 3 folic acid 1 mg tablet^take 1 tablet by mouth once daily^Disp: 30 tablet^Rfl: 5 lidocaine (SALONPAS) 4 % patch^Apply 1 Patch as directed once daily.^Disp: 10 Patch^Rfl: 0 pyridoxine, vitamin B6, (VITAMIN B6) 100 mg tablet^Take 1 tablet by mouth once daily.^Disp: 90 tablet^Rfl: 1 famotidine (PEPCID) 20 mg tablet^Take 1 tablet by mouth two times a day.^Disp: 40 tablet^Rfl: 0 varenicline (CHANTIX) 1 mg tablet^Take 1 tablet by mouth two times a day with meals.^Disp: 60 tablet^Rfl: 1 ibuprofen (MOTRIN) 200 mg tablet^Take 200 mg by mouth every 6 hours as needed for pain.^Disp: ^Rfl: loperamide (IMODIUM A-D) 2 mg cap(s)^Take 1 capsule by mouth four times a day as needed.^Disp: 30 capsule^Rfl: [address] (PROTONIX) 40 mg tablet^Take 1 tablet by mouth daily at 6 am.^Disp: 30 tablet^Rfl: 0 acetaminophen (TYLENOL) 325 mg tablet^2 tablets by ORAL/FEEDING TUBE route every 4 hours as needed for pain.^Disp: ^Rfl: atorvastatin (LIPITOR) 40 mg tablet^Take 40 mg by mouth once daily.^Disp: ^Rfl: DULoxetine (CYMBALTA) 60 mg capsule^Take 60 mg by mouth once daily.^Disp: ^Rfl: ALLERGIES Allergen Reactions Eggs [Egg] Hives Latex Hives Penicillins Hives FAMILY HISTORY Problem Relation Age of Onset Systemic Lupus Erythematosus Mother Lung Cancer Mother COPD Father Diabetes Maternal Grandmother Diabetes Paternal Grandmother Colon Cancer Paternal Grandfather Anesthesia Problems No Family History Social History Tobacco Use Smoking status: Every Day Current packs/day: 0.00 Average packs/day: 1 pack/day for 42.0 years (42.0 ttl pk-yrs) Types: Cigarettes Start date: 08/25/1981 Last attempt to quit: 08/25/2023 Years since quittin.0 Passive exposure: Current Smokeless tobacco: Never Tobacco comments: 2cigs/day Vaping Use Vaping status: Never Used Substance Use Topics Alcohol use: Yes Comment: social Drug use: Not Currently PHYSICAL EXAMINATION: 09/03/24 1333 BP: 133/87 Pulse: 85 Resp: 18 Temp: 36.4 C (97.6 F) TempSrc: Temporal SpO2: 98% Weight: 77.7 kg (171 lb 4.8 oz) ECOG PERFORMANCE STATUS: 0 0- Fully active, able to carry on all pre-disease performance w/o restriction. .General: WD/WN woman in NAD. HEENT: Sclerae anicteric, conjunctiva non-injected. Wearing mask. No temporal wasting. Lungs: easy work of breathing. Symmetric chest movement Abdominal: No obvious ascites or organomegaly. Extremities: No digital clubbing, cyanosis, or edema. Skin: No rash, petechiae or purpura. Neurological: AOx3, mood and affect appropriate. Gait nml. DIAGNOSTIC STUDIES: LABS: Latest Ref Rng & Units 09/03/2024 CBC WBC 3.70 - 11.00 k/uL 7.82 RBC 3.90 - 5.20 m/uL 4.13 Hemoglobin 11.5 - 15.5 g/dL 14.4 Hematocrit 36.0 - 46.0 % 40.9 MCV 80.0 - 100.0 fL 99.0 MCH 26.0 - 34.0 pg 34.9 MCHC 30.5 - 36.0 g/dL 35.2 RDW-CV 11.5 - 15.0 % 13.0 Platelet Count 150 - 400 k/uL 259 MPV 9.0 - 12.7 fL 9.0 Baso% % 0.8 Abs Neut (ANC) 1.45 - 7.50 k/uL 4.15 Abs Lymph 1.00 - 4.00 k/uL 2.92 Abs Johnston <0.87 k/uL 0.51 Abs Eosin <0.46 k/uL 0.16 Abs Baso <0.11 k/uL 0.06 NRBC /100 WBC 0.0 Latest Ref Rng & Units 09/03/2024 CMP Sodium 136 - 144 mmol/L 140 Potassium 3.7 - 5.1 mmol/L 4.1 Chloride 98 - 107 mmol/L 103 CO2 22 - 30 mmol/L 25 Glucose 74 - 99 mg/dL 90 BUN 7 - 21 mg/dL 14 Creatinine 0.58 - 0.96 mg/dL 0.85 EGFR >=60 mL/min/1.73m 81 Protein, Total 6.3 - 8.0 g/dL 7.7 Albumin 3.9 - 4.9 g/dL 4.7 Calcium 8.5 - 10.2 mg/dL 9.7 Bilirubin, Total 0.2 - 1.3 mg/dL 0.3 AST 13 - 35 U/L 32 ALT 7 - 38 U/L 24 Alkaline Phosphatase 34 - 123 U/L 133 No results for input(s): APTT, PTSEC, INR, FIBRAG, DDMER in the last 6720 hours. IMAGING: CT CHEST WO IVCON Result Date: 08/29/2024 IMPRESSION: 1. Persistent consolidative opacity within the apicoposterior segment of the left upper lobe and lingula, when compared to the prior examination, which may relate to post therapy change; however, continued interval surveillance is recommended. 2. Stable groundglass attenuation nodular opacity is within the right upper lobe, measuring up to 1.7 cm. Other groundglass attenuation nodular opacities are also stable. 3. No mili lymphadenopathy is seen within the chest. 4. Stable small pericardial effusion. 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 PD-L1 99% and molecular data revealed KRAS G12C mutation. #Met lung adenocarcinoma Received 4 cycles of [id number] since 08/10. Significant side effects fatigue and neuropathy led to holding 2nd cycle for one week and decreased dose by 20%. Most recent scans with stable disease. Today, patient is feeling well, labs OK; Will proceed with maintenance regular dose. Has compazine to alternate with zofran. RV in [address] CHEST after 2 cycles. anuary (08/26/24) - Will plan to give single agent IO in the future given high PD-L1 status, and that she would like no to be immune compromised while taking care of her grand kids. Pembro q6 weeks in couple of cycles. If she progresses on treatment, will explore targeted or clinical trials for her KRAS G12C mutation. #Brain Mets - s/p GKRS. Repeat MRI showing resolution of lesion. F/u with BTI # LE swelling: - Most likely secondary to pemetrexed. Held pemetrexed/pembro in August as she is not ready to stop pemetrexed now. #Breast nodule - Seen on CT chest, slight FDG avid; 11/11 US biopsy and clip placement. Invasive ductal carcinoma ER+/OH+; referred for surgery. S/p surgery 01/06/24 pT1N0 ER [place] pos. Her2 neg. Following with local oncology Joleen Jiang Additional intake questions: Has the patient had fever, nausea, vomiting, diarrhea, constipation, fatigue for > 1 week? Yes, fatigue and Provider Notified Does the patient have a decreased appetite? No Does patient want to see a Wind Farm Operations Manager? No Does patient have any new or increased numbness or tingling of extremities? No Is patient interested in fertility information? NA Does patient need any prescription refills? No Does patient have an advanced directive in place? No documented in this encounter [facility] 09-03-2024 Note [facility] 08-26-2024 History of Present illness Narrative Radiology Service Progress Note PATIENT NAME: Lashell Segura DATE OF SERVICE: August 26, 2024 TIME: 4:09 PM PATIENT IDENTITY VERIFICATION COMPLETED USING TWO (2) IDENTIFIERS: Name and Date of confirmed by patient verbally and Name and Date of confirmed by identification band. FALL SCREENING: Has the patient had 2 falls in the last year or 1 fall with injury or currently using an Ambulatory Assistive Device (Walker, Cane, Wheelchair, Crutches, etc.)? No PATIENT GENDER DATA: Female. status: : No status: NO. PATIENT RELEVANT IMPLANT DATA REVIEWED: Not Applicable PATIENT PRESENTS WITH AN IMPLANTABLE OR ATTACHED CARPENTER APPRENTICE: No RADIOLOGY DEPARTMENT: CT; Exam(s) Completed: Chest PERIPHERAL IV DATA: Not applicable SIGNED BY: RT Katie(R) August 26, 2024 4:09 PM documented in this encounter [facility] 08-26-2024 Note HNO ID: [id number] Author: KHAI LAST RT(R) Service: Radiology Author Type: Technologist Type: Progress Notes Filed: 08/26/2024 16:09 Note Text: Radiology Service Progress Note PATIENT NAME: Lashell Segura DATE OF SERVICE: August 26, 2024 TIME: 4:09 PM PATIENT IDENTITY VERIFICATION COMPLETED USING TWO (2) IDENTIFIERS: Name and Date of confirmed by patient verbally and Name and Date of confirmed by identification band. FALL SCREENING: Has the patient had 2 falls in the last year or 1 fall with injury or currently using an Ambulatory Assistive Device (Walker, Cane, Wheelchair, Crutches, etc.)? No PATIENT GENDER DATA: Female. status: : No status: NO. PATIENT RELEVANT IMPLANT DATA REVIEWED: Not Applicable PATIENT PRESENTS WITH AN IMPLANTABLE OR ATTACHED CARPENTER APPRENTICE: No RADIOLOGY DEPARTMENT: CT; Exam(s) Completed: Chest PERIPHERAL IV DATA: Not applicable SIGNED BY: RT Katie(R) August 26, 2024 4:09 PM [facility] 07-29-2024 History of Present illness Narrative Images from the original note were not included. [facility] NEURO-ONCOLOGY OUTPATIENT NOTE PURPOSE OF VISIT: Ongoing patient management CHIEF COMPLAINT : Brain met Subjective HISTORY OF PRESENT ILLNESS: Lashell Segura is a pleasant 54 year old year old left-handed female being seen for evaluation of previously diagnosed lung adenocarcinoma. 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 She is s/p GKRS by Dr. Connor Servin and Dr. Chandler Lieberman on 07/28/23 to 1) Left temporal. Primary cancer site : Lung Primary oncologist : Dr. Joleen Jiang Current systemic treatment : Pembrolizumab & Pemetrexed Current steroids : None Interval history: 01/08/24 Presents today with her daughter for follow-up with a new MRI brain scan for review. Reports some shakiness in both hands. She is following driving restrictions. 04/22/24 Presents today unaccompanied for follow-up with a new MRI brain scan for review. Since last visit, she has started taking Lasix for swelling in legs (improved). Has been trying to limit amount of Tylenol that she is taking for headaches/body aches. 07/29/24 Presents today unaccompanied for follow-up with a new MRI brain scan for review. Leg swelling is now constant (previously it was transient); still taking Lasix and wearing compression stockings. No new neurologic symptoms for concerns. 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 Social History Tobacco Use Smoking status: Every Day Current packs/day: 0.00 Average packs/day: 1 pack/day for 42.0 years (42.0 ttl pk-yrs) Types: Cigarettes Start date: 08/25/1981 Last attempt to quit: 08/25/2023 Years since quittin.9 Passive exposure: Current Smokeless tobacco: Never Tobacco comments: 2cigs/day Vaping Use Vaping status: Never Used Substance Use Topics Alcohol use: Yes Comment: social Drug use: Not Currently PAST MEDICAL HISTORY Diagnosis Date Brain tumor (HCC) Epilepsy (HCC) Lung cancer (HCC) FAMILY HISTORY Problem Relation Age of Onset Systemic Lupus Erythematosus Mother Lung Cancer Mother COPD Father Diabetes Maternal Grandmother Diabetes Paternal Grandmother Colon Cancer Paternal Grandfather Anesthesia Problems No Family History Current Outpatient Medications Medication Sig OLANZapine (ZYPREXA) 5 mg tablet Take 1 tablet by mouth daily at bedtime. Start on the day of chemotherapy and take for 5 night. lacosamide (VIMPAT) 150 mg tab Take 1 tablet by mouth two times a day for 180 days. buPROPion SR (WELLBUTRIN SR) 150 mg 12 hr tablet take 1 tablet by mouth twice daily prochlorperazine (COMPAZINE) 10 mg tablet Take 1 tablet by mouth every 4 hours as needed. ondansetron (ZOFRAN) 8 mg tablet Take 1 tablet by mouth every 8 hours as needed for nausea/vomiting. furosemide (LASIX) 20 mg tablet take 1 tablet by mouth once daily folic acid 1 mg tablet take 1 tablet by mouth once daily lidocaine (SALONPAS) 4 % patch Apply 1 Patch as directed once daily. pyridoxine, vitamin B6, (VITAMIN B6) 100 mg tablet Take 1 tablet by mouth once daily. famotidine (PEPCID) 20 mg tablet Take 1 tablet by mouth two times a day. varenicline (CHANTIX) 1 mg tablet Take 1 tablet by mouth two times a day with meals. ibuprofen (MOTRIN) 200 mg tablet Take 200 mg by mouth every 6 hours as needed for pain. loperamide (IMODIUM A-D) 2 mg cap(s) Take 1 capsule by mouth four times a day as needed. pantoprazole DR (PROTONIX) 40 mg tablet Take 1 tablet by mouth daily at 6 am. acetaminophen (TYLENOL) 325 mg tablet 2 tablets by ORAL/FEEDING TUBE route every 4 hours as needed for pain. atorvastatin (LIPITOR) 40 mg tablet Take 40 mg by mouth once daily. DULoxetine (CYMBALTA) 60 mg capsule Take 60 mg by mouth once daily. No current facility-administered medications for this visit. REVIEW OF SYSTEMS : Neurological : + Complaint of headaches (uses Tylenol prn as above) No complaint of tinnitus No complaint of decreased hearing No complaint of diplopia + Complaints of blurred vision. No complaint of vision loss + Complaint of arm/leg numbness or tingling, hands/feet No problem with limb coordination or imbalance No complaint of syncope or LOC or falls + Complaint of tremor/shakiness, as above + Complaint of dizziness/vertigo, transient + Complaint of seizures, as above, [facility] No complaints of memory changes, confusion, or disorientation. Objective PHYSICAL EXAMINATION: BP 154/62 Pulse 70 Resp 16 LMP 05/25/2016 SpO2 100% General appearance: Well appearing, alert, in no acute distress, well-hydrated, well nourished. NEUROLOGICAL EXAM: Higher integrative functions: Oriented to person, place & time. Attention Span and Concentration: Good. Language: Good comprehension. Fund of Knowledge: Good. 2nd CN: Full visual adam. 3rd,4th,6th CN: Pupils (=), round, react to light, full extraocular movements. 5th CN: No decrease in facial sensation 7th CN: Facial muscles symmetric and strong. 8th CN: Hears finger rub well bilaterally. 9th CN: + Gag not tested 10th CN: Spontaneous palate movement, full and symmetric. 11th CN: Full strength in shoulder shrug. 12th CN: Tongue protrusion full and midline. Sensation: No decrease in sensation in upper or lower limbs to touch. Musculoskeletal: Able to stand and ambulate independently with steady gait. Motor: 5/5, R=L, UE=LE. Normal muscle tone without atrophy in all limbs. Coordination: Rapid alternating movements fast and smooth all limbs. IMAGING STUDIES: MRI BRAIN WO/W IVCON IMPRESSION: No evidence of residual/recurrent enhancement at the left temporal lobe lesion. No new lesions are identified. Mastoid effusions. Breakfast Cook: EVGENY Transcribe Date/Time: Jul 29 2024 11:43A Dictated by : WANDA CORDERO MD This examination was interpreted and the report reviewed and electronically signed by: WANDA CORDERO MD on Jul 29 2024 11:50AM EST * * *Final Report* * * DATE OF EXAM: Jul 29 2024 11:13AM [facility] 0295 - MRI BRAIN WO/W IVCON / PROCEDURE REASON: C79.31-Metastasis to brain (HCC) * * * * Physician Interpretation * * * * EXAMINATION: MRI BRAIN WO/W IVCON CLINICAL HISTORY: Metastasis to brain (HCC) TECHNIQUE: Routine brain MRI protocol without and with contrast including diffusion images. MQ: [id number] Contrast: 15 mL Dotarem IV COMPARISON: MRI brain most recently 04/22/2024 RESULT: Acute Change: There is no evidence of restricted diffusion to suggest an acute infarct. Hemorrhage: No evidence of prior parenchymal hemorrhage on the susceptibility weighted images. Mass Lesion/ Mass Effect: No significant residual lesion at the left superior temporal sulcus compared with the recent prior studies. No new enhancing lesions are identified. No perfusion imaging is negative. No intracranial mass effect. Chronic Change: The white matter is within normal limits of signal intensity for age. Parenchyma: No significant volume loss for age. The brain parenchyma is otherwise within normal limits of signal intensity and morphology. Ventricles: Normal caliber and morphology. Skull Base: Hypothalamic and pituitary region are grossly normal. Craniocervical junction is normal. No significant marrow replacement process. Vasculature: Major intracranial arterial structures, and dural venous sinuses show typical flow void, suggesting patency by spin echo criteria. Other: Bilateral mastoid effusions left greater than right, increased compared with prior. KPS SCORE: 80 MEDICAL DECISION MAKING Assessment & Plan 1. 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 - New MRI brain scan today shows no evidence of intracranial metastases - Images reviewed with her today including comparison to remote Jul 2023 localization film - Recommend follow up appointment with a new MRI brain scan in 3 months - Reviewed signs and symptoms that would prompt sooner evaluation - She has our contact information and was advised to call if new symptoms, questions or concerns arise prior to next scheduled visit. - All questions were answered. Portions of this note have been copied and updated appropriately. I spent a total of 30 minutes on the date of the service which included preparing to see the patient, [id number] patient care, completing clinical documentation, obtaining and/or reviewing separately obtained history, performing a medically appropriate examination, counseling and educating the patient/family/caregiver, ordering medications, tests, or procedures, communicating with other HCPs (not separately reported), independently interpreting results (not separately reported), communicating results to the patient/family/caregiver, and care coordination (not separately reported). Mariela Rivera APRN.SLOT MACHINE KEY PERSON cc: Connor Servin MD & Joleen Jiang MD & Mark Mcdonnell MD - [facility] documented in this encounter [facility] 07-29-2024 Note [facility] 07-29-2024 History of Present illness Narrative Radiology Service Progress Note DATE OF SERVICE: July 29, 2024 TIME: 10:35 AM PATIENT IDENTITY VERIFICATION COMPLETED USING TWO (2) STANDARD IDENTIFIERS: Name and Date of confirmed by patient verbally and Name and Date of confirmed by identification band. FALL SCREENING: Has the patient had 2 falls in the last year or 1 fall with injury or currently using an Ambulatory Assistive Device (Walker, Cane, Wheelchair, Crutches, etc.)? No PATIENT GENDER DATA: Female. status: : No status: NO. PATIENT RELEVANT IMPLANT DATA REVIEWED: Yes PATIENT PRESENTS WITH AN IMPLANTABLE OR ATTACHED CARPENTER APPRENTICE: No ALLERGIES: Reviewed and unchanged CONTRAST ALLERGY: NO. EXAM: MRI - CONTRAST TYPE: GROUP II PERIPHERAL IV DATA: RAD RN IV RADIOLOGY DEPARTMENT: MR; Exam(s) Completed: Head: Routine Brain with Perfusion SIGNATURE: RT Lissy(Sherif) PATIENT NAME: Lashell Segura DATE: July 29, 2024 TIME: 10:35 AM documented in this encounter [facility] 07-29-2024 Note HNO ID: [id number] Author: LINDA GARCIA RT(R) Service: Radiology Author Type: Technologist Type: Progress Notes Filed: 07/29/2024 10:35 Note Text: Radiology Service Progress Note DATE OF SERVICE: July 29, 2024 TIME: 10:35 AM PATIENT IDENTITY VERIFICATION COMPLETED USING TWO (2) STANDARD IDENTIFIERS: Name and Date of confirmed by patient verbally and Name and Date of confirmed by identification band. FALL SCREENING: Has the patient had 2 falls in the last year or 1 fall with injury or currently using an Ambulatory Assistive Device (Walker, Cane, Wheelchair, Crutches, etc.)? No PATIENT GENDER DATA: Female. status: : No status: NO. PATIENT RELEVANT IMPLANT DATA REVIEWED: Yes PATIENT PRESENTS WITH AN IMPLANTABLE OR ATTACHED CARPENTER APPRENTICE: No ALLERGIES: Reviewed and unchanged CONTRAST ALLERGY: NO. EXAM: MRI - CONTRAST TYPE: GROUP II PERIPHERAL IV DATA: RAD RN IV RADIOLOGY DEPARTMENT: MR; Exam(s) Completed: Head: Routine Brain with Perfusion SIGNATURE: RT Lissy(R) PATIENT NAME: Lashell Segura DATE: July 29, 2024 TIME: 10:35 AM [facility] 07-23-2024 Instructions Love Juarez MD - 07/23/2024 10:51 AM EST Dear Ms. Lashell Segura, Thank you for coming to see us today and entrusting us with your breast care. So happy to see you are doing well! Please make the following appointments on your way out today: -Mammogram Jul/Aug -See me 6 months Breast health recommendations you can employ for your breast cancer journey include routine breast self awareness, clinical breast exams, annual mammography, minimal alcohol use, no tobacco use and 150 min of aerobic exercise per week as your heart, lungs and joints allow. Wearing a well fitting, supportive bra is helpful for most women as well. Now may be a good time for an updated professional fitting if it has been some time since you have had that done. If you develop new breast concerns, please make an appointment with your breast health team for further evaluation. We are happy to see you any time with any surgical breast questions or concerns. If you would like to compliment one of our caregivers you encountered today, you may do so at [email or web address] you for your time in recognizing those who cared for you during your journey with your breast health team. Love Juarez MD, FACS Care team: SHY Joy PA-C, RN, BSN, CN-BN Elizabeth Linares MA Contact numbers: Scheduling contact number: [phone] Nurse / clinical questions: [phone] Fax number: [phone] documented in this encounter [facility] 07-23-2024 Note [facility] 07-23-2024 History of Present illness Narrative Breast Surgery Follow Up Visit Original surgery date: 12/2023 Procedure: Right lumpectomy with SLNB Diagnosis/Stage: Cancer Staging Neoplasm of lung Staging form: Lung, AJCC 8th Edition - Clinical: Stage SUE (cT2b, cN3, pM1b) - Signed by Joleen Jiang MD on 08/05/2023 Breast cancer T1N0M0 Oncologist: Dr. Jiang Chemotherapy: None for breast CA Radiation: N/A Endocrine therapy: N/a in light of lung CA dx Interval history: No new medical problems. No breast complaints. No masses, skin changes, nipple d/c. Last mammogram: Pre-op ROS GENERAL: No weight loss, malaise or fevers. HEENT: Negative for frequent or significant headaches, Negative for changes in hearing, vision or dizziness, Negative for nose bleeds, Negative for difficulty swallowing or hoarsness RESPIRATORY: Negative for cough, hemoptysis, wheezing or shortness of breath CARDIOVASCULAR: Negative for chest pain, leg swelling or palpitations. GI: No nausea, vomiting, diarrhea, constipation, hematochezia, melena, or abdominal pain : No history of dysuria, hematuria, frequency or incontinence. SKIN: Negative for lesions, rash, and itching NEURO: No history of headaches, syncope, paralysis, seizures or tremors LYMPH: No LAD ENDO: No DM Exam Ambulatory, NAD Sclera anicteric Resp unlabored No arm swelling The sensitive examination was discussed with the Patient or Patient's Authorized Special Needs Tutor. As applicable, any other physician, advance practice provider, medical student, or other health professional student that will be observing or involved in the sensitive examination for educational or training purposes was discussed with the Patient or Authorized Special Needs Tutor. The Patient or Authorized Special Needs Tutor has agreed to proceed with the sensitive examination. (Sensitive examination includes inspection and/or palpation of the breasts, pelvis, prostate and anorectal regions) Right breast: Well healed incision, no pathology Left breast: Neg No supraclavicular or axillary lymphadenopathy Consutlants notes reviewed Most recent imaging reviewed Assessment 54 year old year old female with history of right breast cancer doing well after lumpectomy. Ongoing mgmt of metastatic brain cancer. Plan: Cont to advise -Monthly self exams -Annual clinical exams -Annual mammography - due Jul/Aug -Oncologic follow up as planned Follow Up: 6 months then transition to med onc Love Juarez MD documented in this encounter [facility] 07-19-2024 History of Present illness Narrative Images from the original note were not included. [facility] ESTABLISHED PATIENT VISIT Department of Hematology and Medical Oncology (Elements copied from my note dated 06/07, have been reviewed and updated where appropriate, and all reflect current assessment and medical decision making from today's encounter, July 19, 2024) DIAGNOSIS: [id number] stage SUE lung adenocarcinoma. BIOMARKERS: Interval molecular data have demonstrated PD-L1 99%, KRAS G12C+, Current Treatment: Pemetrexed/Pembrolizumab 11/26/23-present Previous TREATMENT: GKRS to brain mets 07/28/23 [id number] 08/10/2023- 10/29/23 HPI: Lashell Segura is a 54 year old female with diagnosis of stage IV non-small cell lung cancer, adenocarcinoma.Patient originally presented to with sudden onset expressive aphasia to the emergency room and had a witnessed generalized tonic-clonic seizure. Chest x-ray showed a left upper lobe mass concerning for malignancy. CT had showed left upper lobe lesion with significant vasogenic edema. [facility] evaluation. CT chest abdomen pelvis done on July 21 showed a 4.2 x 3.6 cm lingular mass associated with occlusion of lingular bronchus. There is some postobstructive atelectasis. There are numerous bilateral solid/nonsolid nodules with the largest being 1.6 x 1.1 cm in the right lower lobe. There is a large left hilar lymph node 11 mm as well as enlarged right hilar lymph node 12 mm. T11 compression fracture. Right breast 11 mm nodule. MRI brain shows a 1 cm left temporal lobe mass. Patient has bronchoscopy and endobronchial biopsy of the left upper lobe lesion was positive for adenocarcinoma PD-L1 99% ALK negative remaining molecular pathology is negative. Patient received gamma knife treatment on July 28, 24 Anton in 1 fraction,with no significant side effects INTERVAL HISTORY: Last seen in office 06/30/24 with Tuan Bartlett PA-C for continued maintenance pemetrexed /pembrolizumab. Currently, patient has no specific complaints except lower ext swelling. She denies fever, AH, chest pain, cough, SOB, abd pain diarrhea or constipation. She wants to skip or delay end of August infusion. REVIEW OF SYSTEMS: As described above. All other systems were reviewed and were negative. PAST MEDICAL HISTORY: PAST MEDICAL HISTORY Diagnosis Date Brain tumor (HCC) Epilepsy (HCC) Lung cancer (HCC) PAST SURGICAL HISTORY: PAST SURGICAL HISTORY Procedure Laterality Date SECTION HX KNEE SURGERY HX Right meniscus x2 REVISE MEDIAN N/CARPAL TUNNEL SURG Bilateral MEDICATIONS: lacosamide (VIMPAT) 150 mg tab Take 1 tablet by mouth two times a day for 180 days. buPROPion SR (WELLBUTRIN SR) 150 mg 12 hr tablet take 1 tablet by mouth twice daily prochlorperazine (COMPAZINE) 10 mg tablet Take 1 tablet by mouth every 4 hours as needed. ondansetron (ZOFRAN) 8 mg tablet Take 1 tablet by mouth every 8 hours as needed for nausea/vomiting. furosemide (LASIX) 20 mg tablet take 1 tablet by mouth once daily folic acid 1 mg tablet take 1 tablet by mouth once daily lidocaine (SALONPAS) 4 % patch Apply 1 Patch as directed once daily. pyridoxine, vitamin B6, (VITAMIN B6) 100 mg tablet Take 1 tablet by mouth once daily. famotidine (PEPCID) 20 mg tablet Take 1 tablet by mouth two times a day. varenicline (CHANTIX) 1 mg tablet Take 1 tablet by mouth two times a day with meals. ibuprofen (MOTRIN) 200 mg tablet Take 200 mg by mouth every 6 hours as needed for pain. OLANZapine (ZYPREXA) 5 mg tablet Take 1 tablet by mouth daily at bedtime. Start on the day of chemotherapy and take for 5 night. loperamide (IMODIUM A-D) 2 mg cap(s) Take 1 capsule by mouth four times a day as needed. pantoprazole DR (PROTONIX) 40 mg tablet Take 1 tablet by mouth daily at 6 am. acetaminophen (TYLENOL) 325 mg tablet 2 tablets by ORAL/FEEDING TUBE route every 4 hours as needed for pain. atorvastatin (LIPITOR) 40 mg tablet Take 40 mg by mouth once daily. DULoxetine (CYMBALTA) 60 mg capsule Take 60 mg by mouth once daily. ALLERGIES Allergen Reactions Eggs [Egg] Hives Latex Hives Penicillins Hives FAMILY HISTORY Problem Relation Age of Onset Systemic Lupus Erythematosus Mother Lung Cancer Mother COPD Father Diabetes Maternal Grandmother Diabetes Paternal Grandmother Colon Cancer Paternal Grandfather Anesthesia Problems No Family History Social History Tobacco Use Smoking status: Every Day Current packs/day: 0.00 Average packs/day: 1 pack/day for 42.0 years (42.0 ttl pk-yrs) Types: Cigarettes Start date: 08/25/1981 Last attempt to quit: 08/25/2023 Years since quittin.9 Passive exposure: Current Smokeless tobacco: Never Tobacco comments: 2cigs/day Vaping Use Vaping status: Never Used Substance Use Topics Alcohol use: Yes Comment: social Drug use: Not Currently PHYSICAL EXAMINATION: There were no vitals filed for this visit. ECOG PERFORMANCE STATUS: 0 0- Fully active, able to carry on all pre-disease performance w/o restriction. .General: WD/WN woman in NAD. HEENT: Sclerae anicteric, conjunctiva non-injected. Wearing mask. No temporal wasting. Lungs: easy work of breathing. Symmetric chest movement Abdominal: No obvious ascites or organomegaly. Extremities: No digital clubbing, cyanosis, or edema. Skin: No rash, petechiae or purpura. Neurological: AOx3, mood and affect appropriate. Gait nml. DIAGNOSTIC STUDIES: LABS: Recent Labs 07/19/24 0818 06/30/24 1439 06/07/24 1113 05/14/24 1259 02/20/24 1424 01/29/24 1401 WBC 7.19 10.50 6.18 12.51* < > 4.96 HB 12.7 14.4 13.4 14.6 < > 5.6* MCV 102.8* 102.2* 104.5* 99.0 < > 107.1* PLT 364 350 318 362 < > 101* ABSNEUT 4.01 6.90 2.99 8.15* < > 3.37 ABSMONO -- 0.73 -- -- -- 0.15 < > = values in this interval not displayed. Recent Labs 07/19/24 0818 06/30/24 1439 06/07/24 1113 05/14/24 1259 NA 141 138 139 140 K 4.1 3.6* 3.9 3.9 CHLOR 108* 99 105 103 CO2 23 24 21* 25 BUN 10 15 14 13 CREAT 0.88 0.93 0.93 0.82 ALB 4.2 4.4 4.3 4.5 TPROT 6.8 7.1 7.1 7.7 CA 9.4 9.2 9.3 9.8 ALT 42* 55* 47* 64* AST 39* 39* 43* 45* TBILI 0.2 <0.2* 0.2 0.2 GLUC 104* 177* 136* 97 EGFROTH 77 72 72 85 No results for input(s): APTT, PTSEC, INR, FIBRAG, DDMER in the last 6720 hours. IMAGING: Most recent CT CHEST 06/01/24 1. Emphysema and mild, diffuse bronchiectasis. Interval improvement of consolidative opacity within the apicoposterior segment of the left upper lobe and lingula, when compared to the prior examination, which may relate to improving post therapy change; however, continued interval surveillance is recommended. 2. Stable groundglass attenuation nodular opacities within the right upper lobe, measuring up to 1.7 cm. 3. No mili lymphadenopathy is seen within the chest. PATHOLOGY: No new pathology IMPRESSION AND PLAN: 54 y/o female with [id number] stage SUE lung adenocarcinoma with brain met s/p GKRS. PD-L1 99% and molecular data revealed KRAS G12C mutation. #Met lung adenocarcinoma Received 4 cycles of [id number]-[id number] since 08/10. Significant side effects fatigue and neuropathy led to holding 2nd cycle for one week and decreased dose by 20%. Most recent scans with stable disease. Today, 07/19/2024, patient is feeling well, labs OK; Will proceed with maintenance regular dose. Has compazine to alternate with zofran. RV in [address] CHEST in August (08/26/24) - Will plan to give single agent IO in the future given high PD-L1 status, and that she would like no to be immune compromised while taking care of her grand kids. If she progresses on treatment, will explore targeted or clinical trials for her KRAS G12C mutation. #Brain Mets - s/p GKRS. Repeat MRI showing resolution of lesion. F/u MRI 07/29/24 # LE swelling: - Most likely secondary to pemetrexed. Plan to hold pemetrexed in August as she is not ready to stop pemetrexed now. #Breast nodule - Seen on CT chest, slight FDG avid; 11/11 US biopsy and clip placement. Invasive ductal carcinoma ER+/OH+; referred for surgery. S/p surgery 01/06/24 pT1N0 ER [place] pos. Her2 neg. Following with local oncology Joleen Jiang documented in this encounter [facility] 07-19-2024 Note [facility] 07-13-2024 Telephone encounter Note Called Lashell to confirm whether she wants her 16 appointments canceled. Per note on 06/30, Lashell requested to pause her treatment for the holidays. Unable to leave a VM or call back number. VANDANA Riddle, RN [employer] July 13, 2024 [facility] 07-13-2024 Miscellaneous Notes Called Lashell to confirm whether she wants her 16 appointments canceled. Per note on 06/30, Lashell requested to pause her treatment for the holidays. Unable to leave a VM or call back number. VANDANA Riddle, RN [employer]ty [employer] July 13, 2024 documented in this encounter [facility] 07-12-2024 Telephone encounter Note The following approved medication requests have been transmitted electronically. Requested Prescriptions Signed Prescriptions Disp Refills lacosamide (VIMPAT) 150 mg tab 180 tablet 1 Sig: Take 1 tablet by mouth two times a day for 180 days. Authorizing Provider: ANDREA GUADALUPE APRN.CNP [facility] 07-12-2024 Miscellaneous Notes The following approved medication requests have been transmitted electronically. Requested Prescriptions Signed Prescriptions Disp Refills lacosamide (VIMPAT) 150 mg tab 180 tablet 1 Sig: Take 1 tablet by mouth two times a day for 180 days. Authorizing Provider: ANDREA GUADALUPE APRN.CNP Prescription Refill: Requested by: patient Please E-Scribe Caller Contact Number: ninoskamary ann [facility] Number: [id number] Generic/ brand: 30 or 90 day supply requested: 90 Last appointment: 03/05/24 Next Appointment: 09/09/[address] Mcdonnell documented in this encounter [facility] 07-12-2024 Telephone encounter Note Prescription Refill: Requested by: patient Please E-Scribe Caller Contact Number: mode [facility] Number: [id number] Generic/ brand: 30 or 90 day supply requested: 90 Last appointment: 03/05/24 Next Appointment: 09/09/[address] Mcdonnell [facility] 06-30-2024 Nurse Note Additional intake questions: Has the patient had fever, nausea, vomiting, diarrhea, constipation, fatigue for > 1 week? Yes, fatigue Does the patient have a decreased appetite? No Does patient want to see a Wind Farm Operations Manager? No (yes to any of above refer patient to schedulers for dietitian appointment) ) Does patient have any new or increased numbness or tingling of extremities? No Is patient interested in fertility information? No Does patient need any prescription refills? No Does patient have an advanced directive in place? No, Patient referred to [facility] 06-30-2024 Nurse Note Additional intake questions: Has the patient had fever, nausea, vomiting, diarrhea, constipation, fatigue for > 1 week? Yes, fatigue Does the patient have a decreased appetite? No Does patient want to see a Wind Farm Operations Manager? No (yes to any of above refer patient to schedulers for dietitian appointment) ) Does patient have any new or increased numbness or tingling of extremities? No Is patient interested in fertility information? No Does patient need any prescription refills? No Does patient have an advanced directive in place? No, Patient referred to [facility] documented in this encounter [facility] 06-30-2024 History of Present illness Narrative Thoracic Oncology Physician Slurry Man Established Patient Visit June 30, 2024 Portions of this encounter note have been copied from Dr. Jiang previous note dated, 06/07/24, which has been updated where appropriate and all reflect current medical decision making from today, 06/30/2024. ATTENDING PHYSICIAN: Dr. Jiang DIAGNOSIS: [id number] stage SUE lung adenocarcinoma. BIOMARKERS: Interval molecular data have demonstrated PD-L1 99%, KRAS G12C+, Current Treatment: Pemetrexed/Pembrolizumab 11/26/23-present Previous TREATMENT: GKRS to brain mets 07/28/23 [id number] 08/10/2023- 10/29/23 INTERVAL HISTORY: Ms. Segura is a 54 year old female who presents for management of metastatic lung adenocarcinoma. She is overall doing well. States that she continues have leg swelling that improves with Lasix at times and raising her legs at night. Reports mild discomfort with the swelling. Denies any calf pain or unilateral swelling compared to other leg. Denies any new breathing difficulties or chest pains. Denies any nausea, vomiting or diarrhea. Denies any new rashes, lesions or joint pains/aches. The remainder of the review of systems is negative. REVIEW OF SYSTEMS: The remainder of the review of systems is negative. Medications: buPROPion SR (WELLBUTRIN SR) 150 mg 12 hr tablet^take 1 tablet by mouth twice daily^Disp: 60 tablet^Rfl: 2 prochlorperazine (COMPAZINE) 10 mg tablet^Take 1 tablet by mouth every 4 hours as needed.^Disp: 30 tablet^Rfl: 1 ondansetron (ZOFRAN) 8 mg tablet^Take 1 tablet by mouth every 8 hours as needed for nausea/vomiting.^Disp: 30 tablet^Rfl: 3 furosemide (LASIX) 20 mg tablet^take 1 tablet by mouth once daily^Disp: 30 tablet^Rfl: 1 folic acid 1 mg tablet^take 1 tablet by mouth once daily^Disp: 30 tablet^Rfl: 5 lidocaine (SALONPAS) 4 % patch^Apply 1 Patch as directed once daily.^Disp: 10 Patch^Rfl: 0 pyridoxine, vitamin B6, (VITAMIN B6) 100 mg tablet^Take 1 tablet by mouth once daily.^Disp: 90 tablet^Rfl: 1 famotidine (PEPCID) 20 mg tablet^Take 1 tablet by mouth two times a day.^Disp: 40 tablet^Rfl: 0 lacosamide (VIMPAT) 150 mg tab^Take 1 tablet by mouth two times a day for 180 days.^Disp: 180 tablet^Rfl: 1 varenicline (CHANTIX) 1 mg tablet^Take 1 tablet by mouth two times a day with meals.^Disp: 60 tablet^Rfl: 1 ibuprofen (MOTRIN) 200 mg tablet^Take 200 mg by mouth every 6 hours as needed for pain.^Disp: ^Rfl: OLANZapine (ZYPREXA) 5 mg tablet^Take 1 tablet by mouth daily at bedtime. Start on the day of chemotherapy and take for 5 night.^Disp: 30 tablet^Rfl: 1 loperamide (IMODIUM A-D) 2 mg cap(s)^Take 1 capsule by mouth four times a day as needed.^Disp: 30 capsule^Rfl: [address] (PROTONIX) 40 mg tablet^Take 1 tablet by mouth daily at 6 am.^Disp: 30 tablet^Rfl: 0 acetaminophen (TYLENOL) 325 mg tablet^2 tablets by ORAL/FEEDING TUBE route every 4 hours as needed for pain.^Disp: ^Rfl: atorvastatin (LIPITOR) 40 mg tablet^Take 40 mg by mouth once daily.^Disp: ^Rfl: DULoxetine (CYMBALTA) 60 mg capsule^Take 60 mg by mouth once daily.^Disp: ^Rfl: Allergies: ALLERGIES Allergen Reactions Eggs [Egg] Hives Latex Hives Penicillins Hives PAST MEDICAL HISTORY Diagnosis Date Brain tumor (HCC) Epilepsy (HCC) Lung cancer (HCC) Social History Tobacco Use Smoking status: Every Day Current packs/day: 0.00 Average packs/day: 1 pack/day for 42.0 years (42.0 ttl pk-yrs) Types: Cigarettes Start date: 08/25/1981 Last attempt to quit: 08/25/2023 Years since quittin.8 Passive exposure: Current Smokeless tobacco: Never Tobacco comments: 2cigs/day Vaping Use Vaping status: Never Used Substance Use Topics Alcohol use: Yes Comment: social Drug use: Not Currently Problem List: ACTIVE PROBLEM LIST S/P Lumpectomy of Breast - 02/13/2024 Neoplasm of Lung - 08/04/2023 Lung Mass - 07/21/2023 Breast Nodule - 07/21/2023 Tobacco Abuse - 07/21/2023 Vasogenic Brain Edema (Hcc) - 07/21/2023 At Risk for Lymphedema - 07/21/2023 Seizure (Hcc) - 07/21/2023 Metastasis to Brain (Hcc) - 07/20/2023 PHYSICAL EXAM: Vitals BP 112/81 Pulse 105 Temp 36.4 C (97.6 F) (Temporal) Resp 20 Wt 78.6 kg (173 lb 4.5 oz) LMP 05/25/2016 SpO2 99% BMI 29.74 kg/m ECOG PERFORMANCE STATUS: 1- Restricted in physically strenuous activity. Carries out light duty. Physical Exam Vitals and nursing note reviewed. Constitutional: General: She is not in acute distress. Appearance: Normal appearance. She is normal weight. She is not ill-appearing or toxic-appearing. HENT: Head: Normocephalic and atraumatic. Right Ear: External ear normal. Left Ear: External ear normal. Nose: Nose normal. Mouth/Throat: Mouth: Mucous membranes are moist. Pharynx: Oropharynx is clear. No oropharyngeal exudate or posterior oropharyngeal erythema. Eyes: General: No scleral icterus. Right eye: No discharge. Left eye: No discharge. Cardiovascular: Rate and Rhythm: Normal rate and regular rhythm. Heart sounds: Normal heart sounds. Pulmonary: Effort: Pulmonary effort is normal. No respiratory distress. Breath sounds: Normal breath sounds. No stridor. No wheezing, rhonchi or rales. Abdominal: General: Abdomen is flat. Tenderness: There is no abdominal tenderness. There is no guarding or rebound. Musculoskeletal: General: Normal range of motion. Cervical back: Normal range of motion. Right lower leg: Edema (trace) present. Left lower leg: Edema (trace) present. Skin: General: Skin is warm and dry. Neurological: General: No focal deficit present. Mental Status: She is alert. Psychiatric: Mood and Affect: Mood normal. Behavior: Behavior normal. Thought Content: Thought content normal. Judgment: Judgment normal. Laboratory Data WBC (k/uL) Date Value 06/30/2024 10.50 RBC (m/uL) Date Value 06/30/2024 4.07 Hemoglobin (g/dL) Date Value 06/30/2024 14.4 Hematocrit (%) Date Value 06/30/2024 41.6 MCV (fL) Date Value 06/30/2024 102.2 (H) MCH (pg) Date Value 06/30/2024 35.4 (H) MCHC (g/dL) Date Value 06/30/2024 34.6 RDW-CV (%) Date Value 06/30/2024 13.8 Platelet Count (k/uL) Date Value 06/30/2024 350 MPV (fL) Date Value 06/30/2024 8.3 (L) Neutrophils % (%) Date Value 06/30/2024 65.7 Lymphocytes % (%) Date Value 06/30/2024 25.0 Monocytes % (%) Date Value 06/30/2024 7.0 Eosinophils % (%) Date Value 06/30/2024 1.1 Basophils % (%) Date Value 06/30/2024 0.8 Abs Neut (k/uL) Date Value 06/30/2024 6.90 Abs Johnston (k/uL) Date Value 06/30/2024 0.73 Abs Eosin (k/uL) Date Value 06/30/2024 0.12 Abs Baso (k/uL) Date Value 06/30/2024 0.08 Glucose (mg/dL) Date Value 06/30/2024 177 (H) BUN (mg/dL) Date Value 06/30/2024 15 Creatinine (mg/dL) Date Value 06/30/2024 0.93 Sodium (mmol/L) Date Value 06/30/2024 138 Potassium (mmol/L) Date Value 06/30/2024 3.6 (L) Chloride (mmol/L) Date Value 06/30/2024 99 CO2 (mmol/L) Date Value 06/30/2024 24 Protein, Total (g/dL) Date Value 06/30/2024 7.1 Albumin (g/dL) Date Value 06/30/2024 4.4 Calcium, Total (mg/dL) Date Value 06/30/2024 9.2 Alkaline Phosphatase (U/L) Date Value 06/30/2024 134 (H) Bilirubin, Total (mg/dL) Date Value 06/30/2024 <0.2 (L) AST (U/L) Date Value 06/30/2024 39 (H) ALT (U/L) Date Value 06/30/2024 55 (H) No results found for: CEA No results found for: [id number] TSH (mIU/L) Date Value 06/30/2024 1.470 06/07/2024 0.968 05/14/2024 1.150 Imaging: Last CT/CTA Chest/Lungs CT CHEST WO IVCON Exam End: 06/01/2024 4:05 PM (Final result) Narrative: * * *Final Report* * * DATE OF EXAM: Jun 01 2024 4:05PM [facility] [place] IVCON / PROCEDURE REASON: C34.90-Adenocarcinoma of lung, stage 4, unspecified laterality (HCC) * * * * Physician Interpretation * * * * EXAMINATION: CHEST CT WITHOUT CONTRAST CLINICAL HISTORY: Adenocarcinoma Technique: Spiral CT acquisition of the chest from the thoracic inlet to the upper abdomen without contrast. MQ: [id number] CT Radiation dose: Integrated Dose-length product (DLP) for this visit = 236 mGy*cm CT Dose Reduction Employed: Automated exposure control(AEC) and iterative recon Comparison: 04/21/2024 RESULT: Limitations: None. Lines, tubes, and devices: None. Lung parenchyma and airways: Emphysema mild, diffuse bronchiectasis. There is biapical fibrosis. Interval improvement of consolidative opacity within the apicoposterior segment of the left upper lobe and lingula, when compared the prior examination, which may relate to improving post therapy change; however, continued interval surveillance is recommended. Atelectasis is seen within the right middle lobe. Stable groundglass attenuation nodular opacity is seen within the anterior segment right upper lobe, measuring approximately 1.7 cm (series 2, image #172). Other groundglass attenuation nodule opacities are also stable. Pleural space: There is no pleural effusion. Lower neck, lymph nodes, and mediastinum: Again seen are surgical clips within the right lateral breast and right axilla. There are no pathologically enlarged axillary, mediastinal, or hilar lymph nodes. Heart, pericardium, and thoracic vessels: Atherosclerotic calcifications are present within thoracic aorta. Fatty hypertrophy of the intra-atrial septum. The heart is normal in size. Stable small pericardial effusion, when compared to the prior examination. Bones and soft tissues: There is scoliosis and multilevel degenerative change seen within the thoracic spine. A few presumed bone islands are seen in the osseous structures. Loose bodies about the left shoulder. Mild scoliosis of lumbar spine, convex to the left. Vacuum disc phenomena is seen at multiple levels. Stable mild compression deformity seen involving the T11 vertebral body, when compared to the prior examination. Again seen is a nonunited fracture involving the left lateral ninth rib. Upper abdomen: Contents are seen within the stomach. A few small splenules are incidentally noted within left upper quadrant. The gallbladder is relatively collapsed but is otherwise unremarkable. Impression: IMPRESSION: 1. Emphysema and mild, diffuse bronchiectasis. Interval improvement of consolidative opacity within the apicoposterior segment of the left upper lobe and lingula, when compared to the prior examination, which may relate to improving post therapy change; however, continued interval surveillance is recommended. 2. Stable groundglass attenuation nodular opacities within the right upper lobe, measuring up to 1.7 cm. 3. No mili lymphadenopathy is seen within the chest. Breakfast Cook: EVGENY Transcribe Date/Time: Jun 03 2024 10:06A Dictated by : BISHOP GUY MD This examination was interpreted and the report reviewed and electronically signed by: BISHOP GUY MD on Jun 03 2024 10:14AM EST ASSESSMENT/PLAN: Ms. Segura is a 54 year old female with metastatic lung adenocarcinoma. She presents today for routine management and pretreatment evaluation. (C34.90) Adenocarcinoma of lung, stage 4, unspecified laterality (HCC) (primary encounter diagnosis) (Z51.11, Z51.12) Encounter for antineoplastic chemotherapy and immunotherapy Comment: Labs reviewed and meet treatment parameters. Mild hypokalemia 3.6. Patient tolerated last cycle without much difficulty. Doing well clinically. CT scan from 06/01/2024 demonstrated overall stable disease. Plan: # Proceed with maintenance pemetrexed and pembrolizumab # Daily folic acid 1 mg supplement # Q9 weekly B12 injects, next in 2 cycles # Patient requests to pause 08/09 treatment for holidays, Dr. Jiang okay with this # CT scan early August, patient to schedule soon, and follow up with Dr. Jiang to discuss results. (M79.89) Leg swelling Comment: Trace edema today, could be related to Pemetrexed Plan: # Continue to monitor # Discuss DC of pemetrexed, patient does not want to stop pemetrexed at this time I spent a total of 30 minutes on the date of the service which included preparing to see the patient, [id number] patient care, completing clinical documentation, obtaining and/or reviewing separately obtained history, performing a medically appropriate examination, counseling and educating the patient/family/caregiver, ordering medications, tests, or procedures, communicating with other HCPs (not separately reported), independently interpreting results (not separately reported), communicating results to the patient/family/caregiver, and care coordination (not separately reported). Tri Dickerson PA-C [facility] [place] [facility] documented in this encounter [facility] 06-30-2024 Note [facility] 06-07-2024 Note [facility] 06-07-2024 History of Present illness Narrative THORACIC ONCOLOGY FOLLOW UP VISIT ((Elements copied from my note dated April 23,, have been reviewed and updated where appropriate, and all reflect current assessment and medical decision making from today's encounter, June 07, 2024) DIAGNOSIS: [id number] stage SUE lung adenocarcinoma. Interval molecular data have demonstrated PD-L1 99%, KRAS G12C+, Current Treatment: Pemetrexed/Pembrolizumab 11/26/23-present Previous TREATMENT: GKRS to brain mets 07/28/23 [id number]-[id number]-bax 08/10/2023- 10/29/23 ECOG PERFORMANCE STATUS: 1 INTERVAL HISTORY: Ms. Segura returns in follow up today for maintenance chemoIO. Overall feeling well. Her generalized weakness and fatigue improved as well as numbenss and tingling in hands and feet. HPI: Lashell Segura is a 53 year old female with recent diagnosis of stage IV non-small cell lung cancer, adenocarcinoma. Patient originally presented to with sudden onset expressive aphasia to the emergency room and had a witnessed generalized tonic-clonic seizure. Chest x-ray showed a left upper lobe mass concerning for malignancy. CT had showed left upper lobe lesion with significant vasogenic edema. [facility] was [facility] for [facility] evaluation. CT chest abdomen pelvis done on July 21 showed a 4.2 x 3.6 cm lingular mass associated with occlusion of lingular bronchus. There is some postobstructive atelectasis. There are numerous bilateral solid/nonsolid nodules with the largest being 1.6 x 1.1 cm in the right lower lobe. There is a large left hilar lymph node 11 mm as well as enlarged right hilar lymph node 12 mm. T11 compression fracture. Right breast 11 mm nodule. MRI brain shows a 1 cm left temporal lobe mass. Patient has bronchoscopy and endobronchial biopsy of the left upper lobe lesion was positive for adenocarcinoma PD-L1 99% ALK negative remaining molecular pathology is negative. Patient received gamma knife treatment on July 28 Anton in 1 fraction,with no significant side effects REVIEW OF SYSTEMS GENERAL: No fevers, chills, or nightsweats HEENT: Negative for frequent or significant headaches HEMATOLOGY/LYMPHOLOGY Negative for prolonged bleeding, bruising easily, lumps or swollen Lymph nodes. PULMONARY: Negative for cough, hemoptysis, wheezing, COPD, dyspnea or shortness of breath CARDIOVASCULAR: Negative for leg swelling or palpitations. GI: Negative for N/V, diarrhea or constipation, abdominal discomfort, hematemesis, hematochezia or melena. MUSCULOSKELETAL: Negative for bone or joint pain or swelling, back pain or muscle pain. NEURO: No history of headaches, syncope, focal weakness or paralysis, seizures, numbness or tingling of hands or feet MEDICATIONS: buPROPion SR (WELLBUTRIN SR) 150 mg 12 hr tablet take 1 tablet by mouth twice daily prochlorperazine (COMPAZINE) 10 mg tablet Take 1 tablet by mouth every 4 hours as needed. ondansetron (ZOFRAN) 8 mg tablet Take 1 tablet by mouth every 8 hours as needed for nausea/vomiting. furosemide (LASIX) 20 mg tablet take 1 tablet by mouth once daily folic acid 1 mg tablet take 1 tablet by mouth once daily lidocaine (SALONPAS) 4 % patch Apply 1 Patch as directed once daily. pyridoxine, vitamin B6, (VITAMIN B6) 100 mg tablet Take 1 tablet by mouth once daily. famotidine (PEPCID) 20 mg tablet Take 1 tablet by mouth two times a day. lacosamide (VIMPAT) 150 mg tab Take 1 tablet by mouth two times a day for 180 days. varenicline (CHANTIX) 1 mg tablet Take 1 tablet by mouth two times a day with meals. ibuprofen (MOTRIN) 200 mg tablet Take 200 mg by mouth every 6 hours as needed for pain. OLANZapine (ZYPREXA) 5 mg tablet Take 1 tablet by mouth daily at bedtime. Start on the day of chemotherapy and take for 5 night. loperamide (IMODIUM A-D) 2 mg cap(s) Take 1 capsule by mouth four times a day as needed. pantoprazole DR (PROTONIX) 40 mg tablet Take 1 tablet by mouth daily at 6 am. acetaminophen (TYLENOL) 325 mg tablet 2 tablets by ORAL/FEEDING TUBE route every 4 hours as needed for pain. atorvastatin (LIPITOR) 40 mg tablet Take 40 mg by mouth once daily. DULoxetine (CYMBALTA) 60 mg capsule Take 60 mg by mouth once daily. ALLERGIES: ALLERGIES Allergen Reactions Eggs [Egg] Hives Latex Hives Penicillins Hives PHYSICAL EXAMINATION: Vitals: BP 128/79 Pulse 95 Temp (Src) 97.6 (Temporal) Resp 20 Wt 175 lb 0.7 oz (79.4kg) SpO2 98% LMP 05/25/2016 Body surface area is 1.89 meters squared. General: WD/WN woman in NAD. HEENT: Sclerae anicteric, conjunctiva non-injected. Wearing mask. No temporal wasting. Lungs: easy work of breathing. Symmetric chest movement Abdominal: No obvious ascites or organomegaly. Extremities: No digital clubbing, cyanosis, or edema. Skin: No rash, petechiae or purpura. Neurological: AOx3, mood and affect appropriate. Gait nml. LABORATORY VALUES: CBC: Recent Labs 06/07/24 1113 05/14/24 1259 04/23/24 1045 WBC 6.18 12.51* 9.38 HB 13.4 14.6 14.3 PLT 318 362 405* MCV 104.5* 99.0 101.7* BMP: Recent Labs 05/14/24 1259 04/23/24 1045 04/02/24 1052 NA 140 141 139 K 3.9 4.5 3.7 CHLOR 103 104 98 CO2 25 26 29 ANION 12 11 12 BUN 13 10 13 CREAT 0.82 0.87 0.94 GLUC 97 96 88 CHEM: Recent Labs 05/14/24 1259 04/23/24 1045 04/02/24 1052 07/20/23 1423 07/20/23 0318 ALB 4.5 4.6 4.7 < > 4.6 TPROT 7.7 7.8 7.8 < > 7.1 CA 9.8 9.7 10.1 < > -- MG -- -- -- -- 2.1 < > = values in this interval not displayed. HEPATIC: Recent Labs 05/14/24 1259 04/23/24 1045 04/02/24 1052 AST 45* 36* 33 ALT 64* 47* 38 TBILI 0.2 0.3 0.2 ALKPHOS 156* 162* 143* RADIOLOGY REVIEW: CT CHEST WO IVCON Result Date: 06/03/2024 IMPRESSION: 1. Emphysema and mild, diffuse bronchiectasis. Interval improvement of consolidative opacity within the apicoposterior segment of the left upper lobe and lingula, when compared to the prior examination, which may relate to improving post therapy change; however, continued interval surveillance is recommended. 2. Stable groundglass attenuation nodular opacities within the right upper lobe, measuring up to 1.7 cm. 3. No mili lymphadenopathy is seen within the chest. Breakfast Cook: PSCB Transcribe Date/Time: Jun 03 2024 10:06A Dictated by : BISHOP GUY MD This examination was interpreted and the report reviewed and electronically signed by: BISHOP GUY MD on Jun 03 2024 10:14AM EST ASSESSMENT AND PLAN: 53 y/o female with [id number] stage SUE lung adenocarcinoma with brain met s/p GKRS. PD-L1 99% and molecular data revealed KRAS G12C mutation. #Met lung adenocarcinoma Received 4 cycles of [id number]-[id number] since 08/10. Significant side effects fatigue and neuropathy led to holding 2nd cycle for one week and decreased dose by 20%. Feeling well today; labs OK; CT suggesting response. Will proceed with maintenance regular dose. Has compazine to alternate with zofran. RV in [address] in May Can consider single agent IO in the future given high PD-L1 status. If she progresses on treatment, will explore targeted or clinical trials for her KRAS G12C mutation. #Brain Mets - s/p GKRS. Repeat MRI showing resolution of lesion. Next MRI in 3 months #Breast nodule - Seen on CT chest, slight FDG avid; 11/11 US biopsy and clip placement. Invasive ductal carcinoma ER+/OH+; referred for surgery. S/p surgery 01/06/24 pT1N0 ER [place] pos. Her2 neg. Following with local oncology Joleen Jiang MD Additional intake questions: Has the patient had fever, nausea, vomiting, diarrhea, constipation, fatigue for > 1 week? Yes, fatigue and Provider Notified Does the patient have a decreased appetite? No Does patient want to see a Wind Farm Operations Manager? No (yes to any of above refer patient to schedulers for dietitian appointment) ) Does patient have any new or increased numbness or tingling of extremities? No Is patient interested in fertility information? No Does patient need any prescription refills? No Does patient have an advanced directive in place? No, Patient referred to [facility] documented in this encounter [facility] 06-07-2024 Note [facility] 06-01-2024 History of Present illness Narrative Radiology Service Progress Note PATIENT NAME: Lashell Segura DATE OF SERVICE: June 01, 2024 TIME: 4:03 PM PATIENT IDENTITY VERIFICATION COMPLETED USING TWO (2) IDENTIFIERS: Name and Date of confirmed by patient verbally and Name and Date of confirmed by identification band. FALL SCREENING: Has the patient had 2 falls in the last year or 1 fall with injury or currently using an Ambulatory Assistive Device (Walker, Cane, Wheelchair, Crutches, etc.)? No PATIENT GENDER DATA: Female. status: : No status: NO. PATIENT RELEVANT IMPLANT DATA REVIEWED: Not Applicable PATIENT PRESENTS WITH AN IMPLANTABLE OR ATTACHED CARPENTER APPRENTICE: No RADIOLOGY DEPARTMENT: CT; Exam(s) Completed: Chest PERIPHERAL IV DATA: Not applicable SIGNED BY: JM Muir June 01, 2024 4:03 PM documented in this encounter [facility] 06-01-2024 Note HNO ID: [id number] Author: CHRISTELLE SOLIS CT Service: Radiology Author Type: Technologist Type: Progress Notes Filed: 06/01/2024 16:03 Note Text: Radiology Service Progress Note PATIENT NAME: Lashell Seguar DATE OF SERVICE: June 01, 2024 TIME: 4:03 PM PATIENT IDENTITY VERIFICATION COMPLETED USING TWO (2) IDENTIFIERS: Name and Date of confirmed by patient verbally and Name and Date of confirmed by identification band. FALL SCREENING: Has the patient had 2 falls in the last year or 1 fall with injury or currently using an Ambulatory Assistive Device (Walker, Cane, Wheelchair, Crutches, etc.)? No PATIENT GENDER DATA: Female. status: : No status: NO. PATIENT RELEVANT IMPLANT DATA REVIEWED: Not Applicable PATIENT PRESENTS WITH AN IMPLANTABLE OR ATTACHED CARPENTER APPRENTICE: No RADIOLOGY DEPARTMENT: CT; Exam(s) Completed: Chest PERIPHERAL IV DATA: Not applicable SIGNED BY: Christelle Guerrerorin, CT June 01, 2024 4:03 PM [facility] 05-14-2024 Note Addended by: JOLEEN JIANG on: 05/14/2024 02:10 PM Modules accepted: Orders [facility] 05-14-2024 Miscellaneous Notes Addended by: JOLEEN JIANG on: 05/14/2024 02:10 PM Modules accepted: Orders documented in this encounter [facility] 05-14-2024 Note [facility] 05-14-2024 History of Present illness Narrative Physician Slurry Man Established Patient Visit May 14, 2024 Portions of this encounter note have been copied from Dr. Jiang previous note dated, , which has been updated where appropriate and all reflect current medical decision making from today, 05/14/2024. ATTENDING PHYSICIAN: Dr. Jiang DIAGNOSIS: [id number] stage SUE lung adenocarcinoma. Interval molecular data have demonstrated PD-L1 99%, KRAS G12C+, Current Treatment: Maintenance Pemetrexed/Pembrolizumab 11/26/23-present Previous TREATMENT: GKRS to brain mets 07/28/23 [id number]-[id number]-vmy 08/10/2023- 10/29/23 INTERVAL HISTORY: Ms. Segura is a 53 year old female who presents for management of metastatic lung adenocarcinoma. She states she is overall doing well, has been dealing with some sinus issues recently for the last 3 to 4 days. Reports pain in her maxillary and frontal sinuses with congestion. Denies any fevers or chills. Denies any cough, congestion, nausea, vomiting or abdominal pain. The remainder of the review of systems is negative. REVIEW OF SYSTEMS: The remainder of the review of systems is negative. Medications: prochlorperazine (COMPAZINE) 10 mg tablet Take 1 tablet by mouth every 4 hours as needed. ondansetron (ZOFRAN) 8 mg tablet Take 1 tablet by mouth every 8 hours as needed for nausea/vomiting. furosemide (LASIX) 20 mg tablet take 1 tablet by mouth once daily folic acid 1 mg tablet take 1 tablet by mouth once daily lidocaine (SALONPAS) 4 % patch Apply 1 Patch as directed once daily. pyridoxine, vitamin B6, (VITAMIN B6) 100 mg tablet Take 1 tablet by mouth once daily. famotidine (PEPCID) 20 mg tablet Take 1 tablet by mouth two times a day. lacosamide (VIMPAT) 150 mg tab Take 1 tablet by mouth two times a day for 180 days. varenicline (CHANTIX) 1 mg tablet Take 1 tablet by mouth two times a day with meals. buPROPion SR (WELLBUTRIN SR) 150 mg 12 hr tablet Take 1 tablet by mouth two times a day. ibuprofen (MOTRIN) 200 mg tablet Take 200 mg by mouth every 6 hours as needed for pain. OLANZapine (ZYPREXA) 5 mg tablet Take 1 tablet by mouth daily at bedtime. Start on the day of chemotherapy and take for 5 night. loperamide (IMODIUM A-D) 2 mg cap(s) Take 1 capsule by mouth four times a day as needed. pantoprazole DR (PROTONIX) 40 mg tablet Take 1 tablet by mouth daily at 6 am. acetaminophen (TYLENOL) 325 mg tablet 2 tablets by ORAL/FEEDING TUBE route every 4 hours as needed for pain. atorvastatin (LIPITOR) 40 mg tablet Take 40 mg by mouth once daily. DULoxetine (CYMBALTA) 60 mg capsule Take 60 mg by mouth once daily. doxycycline hyclate (VIBRAMYCIN) 100 mg capsule Take 1 capsule (100 mg) by mouth two times a day for 7 days. Allergies: ALLERGIES Allergen Reactions Eggs [Egg] Hives Latex Hives Penicillins Hives PAST MEDICAL HISTORY Diagnosis Date Brain tumor (HCC) Epilepsy (HCC) Lung cancer (HCC) Social History Tobacco Use Smoking status: Every Day Current packs/day: 0.00 Average packs/day: 1 pack/day for 42.0 years (42.0 ttl pk-yrs) Types: Cigarettes Start date: 08/25/1981 Last attempt to quit: 08/25/2023 Years since quittin.7 Passive exposure: Current Smokeless tobacco: Never Tobacco comments: 2cigs/day Vaping Use Vaping status: Never Used Substance Use Topics Alcohol use: Yes Comment: social Drug use: Not Currently Problem List: ACTIVE PROBLEM LIST S/P Lumpectomy of Breast - 02/13/2024 Neoplasm of Lung - 08/04/2023 Lung Mass - 07/21/2023 Breast Nodule - 07/21/2023 Tobacco Abuse - 07/21/2023 Vasogenic Brain Edema (Hcc) - 07/21/2023 At Risk for Lymphedema - 07/21/2023 Seizure (Hcc) - 07/21/2023 Metastasis to Brain (Hcc) - 07/20/2023 PHYSICAL EXAM: Vitals BP 154/95 Pulse 118 Temp 36.4 C (97.5 F) (Temporal) Resp 20 Wt 77.7 kg (171 lb 4.8 oz) LMP 05/25/2016 SpO2 99% BMI 29.40 kg/m ECOG PERFORMANCE STATUS: 1- Restricted in physically strenuous activity. Carries out light duty. Physical Exam Vitals and nursing note reviewed. Constitutional: General: She is not in acute distress. Appearance: Normal appearance. She is normal weight. She is not ill-appearing or toxic-appearing. HENT: Head: Normocephalic and atraumatic. Right Ear: External ear normal. Left Ear: External ear normal. Nose: Congestion present. Right Sinus: Maxillary sinus tenderness present. Left Sinus: Maxillary sinus tenderness present. Mouth/Throat: Mouth: Mucous membranes are moist. Pharynx: Oropharynx is clear. No oropharyngeal exudate or posterior oropharyngeal erythema. Eyes: General: No scleral icterus. Right eye: No discharge. Left eye: No discharge. Cardiovascular: Rate and Rhythm: Normal rate and regular rhythm. Pulmonary: Effort: Pulmonary effort is normal. No respiratory distress. Breath sounds: Normal breath sounds. No stridor. No wheezing, rhonchi or rales. Abdominal: General: Abdomen is flat. Tenderness: There is no abdominal tenderness. There is no guarding or rebound. Skin: General: Skin is warm and dry. Neurological: General: No focal deficit present. Mental Status: She is alert and oriented to person, place, and time. Mental status is at baseline. Psychiatric: Mood and Affect: Mood normal. Behavior: Behavior normal. Thought Content: Thought content normal. Judgment: Judgment normal. Laboratory Data WBC (k/uL) Date Value 05/14/2024 12.51 (H) RBC (m/uL) Date Value 05/14/2024 4.12 Hemoglobin (g/dL) Date Value 05/14/2024 14.6 Hematocrit (%) Date Value 05/14/2024 40.8 MCV (fL) Date Value 05/14/2024 99.0 MCH (pg) Date Value 05/14/2024 35.4 (H) MCHC (g/dL) Date Value 05/14/2024 35.8 RDW-CV (%) Date Value 05/14/2024 15.5 (H) Platelet Count (k/uL) Date Value 05/14/2024 362 MPV (fL) Date Value 05/14/2024 8.1 (L) Neutrophils % (%) Date Value 01/29/2024 68.0 Lymphocytes % (%) Date Value 01/29/2024 29.0 Monocytes % (%) Date Value 01/29/2024 3.0 Eosinophils % (%) Date Value 07/20/2023 0.3 Basophils % (%) Date Value 01/29/2024 0.0 Abs Neut (k/uL) Date Value 05/14/2024 8.15 (H) Abs Johnston (k/uL) Date Value 01/29/2024 0.15 Abs Eosin (k/uL) Date Value 01/29/2024 0.00 Abs Baso (k/uL) Date Value 01/29/2024 0.00 Glucose (mg/dL) Date Value 05/14/2024 97 BUN (mg/dL) Date Value 05/14/2024 13 Creatinine (mg/dL) Date Value 05/14/2024 0.82 Sodium (mmol/L) Date Value 05/14/2024 140 Potassium (mmol/L) Date Value 05/14/2024 3.9 Chloride (mmol/L) Date Value 05/14/2024 103 CO2 (mmol/L) Date Value 05/14/2024 25 Protein, Total (g/dL) Date Value 05/14/2024 7.7 Albumin (g/dL) Date Value 05/14/2024 4.5 Calcium, Total (mg/dL) Date Value 05/14/2024 9.8 Alkaline Phosphatase (U/L) Date Value 05/14/2024 156 (H) Bilirubin, Total (mg/dL) Date Value 05/14/2024 0.2 AST (U/L) Date Value 05/14/2024 45 (H) ALT (U/L) Date Value 05/14/2024 64 (H) No results found for: CEA No results found for: [id number] TSH (mIU/L) Date Value 04/23/2024 1.010 04/02/2024 0.614 03/12/2024 0.815 Imaging: Last CT/CTA Chest/Lungs CT CHEST WO IVCON Exam End: 04/21/2024 3:53 PM (Final result) Narrative: * * *Final Report* * * DATE OF EXAM: Apr 21 2024 3:53PM [facility] [place]ST [place] IV[place] / PROCEDURE REASON: C34.90-Adenocarcinoma of lung, stage 4, unspecified laterality (HCC) * * * * Physician Interpretation * * * * EXAMINATION: CHEST CT WITHOUT CONTRAST CLINICAL HISTORY: Follow-up lung cancer Technique: Spiral CT acquisition of the chest from the thoracic inlet to the upper abdomen without contrast. MQ: [id number] CT Radiation dose: Integrated Dose-length product (DLP) for this visit = 342 mGy*cm CT Dose Reduction Employed: Automated exposure control(AEC) and iterative recon Comparison: 02/18/2024 RESULT: Limitations: None. Lines, tubes, and devices: None. Lung parenchyma and airways: Evaluation of lung parenchyma demonstrates consolidation in the left upper lobe/lingula with air bronchograms. There is narrowing and encasement of bronchi of the left upper lobe and lingula. Findings appear stable to minimally improved. Within the right lung are couple of subsolid/groundglass nodules. For example, there is a 1.7 cm groundglass nodule in the anterior right lower lobe as seen on image 65. This is unchanged. Within the superior segment of the right lower lobe is an 8.1 mm groundglass nodule on image 52. This is also unchanged. No new nodule is identified. Pleural space: No pleural effusion. No pleural thickening. Lower neck, lymph nodes, and mediastinum: The imaged thyroid gland is normal. No lymphadenopathy in the supraclavicular, axillary, mediastinal, or hilar regions. The soft tissue density in the left hilum is poorly visualized but grossly unchanged. Heart, pericardium, and thoracic vessels: The thoracic aorta and main pulmonary artery are normal in caliber. The cardiac chambers are normal in size. No coronary artery atherosclerotic calcifications are noted, although the study is not optimized for coronary assessment. No pericardial effusion or thickening. Bones and soft tissues: No destructive bone lesion. Chest wall is unremarkable. Upper abdomen: No abnormality in the imaged upper abdomen. Localizer images: No additional findings. Impression: IMPRESSION: 1. No significant change in the consolidation involving the left upper lobe/lingular segment. 2. A few stable groundglass nodules are present, most pronounced in the anterior right lower lobe as described above. Breakfast Cook: PSCB Transcribe Date/Time: Apr 26 2024 7:04P Dictated by : DOMINGO BENAVIDES MD This examination was interpreted and the report reviewed and electronically signed by: DOMINGO BENAVIDES MD on Apr 26 2024 7:10PM EST ASSESSMENT/PLAN: Ms. Segura is a 53 year old female with metastatic lung adenocarcinoma. She presents today for routine management and planned maintenance cycle today. (C34.90) Adenocarcinoma of lung, stage 4, unspecified laterality (HCC) (primary encounter diagnosis) (Z51.11, Z51.12) Encounter for antineoplastic chemotherapy and immunotherapy Comment: Doing well clinically. Tolerating treatments without difficulty. Labs reviewed and meet treatment parameters. CT no significant \change in consolidation of REILLY/lingular segment, a few stable GG nodules however in the right anterior lobe. Plan: # Proceed with cycle 11 of maintenance pemetrexed and pembrolizumab # Daily folic acid 1 mg supplement # Q9 weekly B12 injects, next 05/14/2024 # CT scan 06/01 and follow up with Dr. Jiang on 06/07 (J01.00) Acute maxillary sinusitis, recurrence not specified Comment: Tenderness to palpation with congestion, leukocytosis Plan: # Doxycyline 100 mg BID for 1 week # Continue to monitor Ms. Segura has been encouraged to increase her fluid intake. She has also been instructed to call our office with any questions or concerns including, but not limited to, fever at or above 100.4 F. Patient expressed understanding. Ms. Segura will return on 06/[address] scan results and planned next cycle . I spent a total of 20 minutes on the date of the service which included preparing to see the patient, [id number] patient care, completing clinical documentation, obtaining and/or reviewing separately obtained history, performing a medically appropriate examination, counseling and educating the patient/family/caregiver, ordering medications, tests, or procedures, communicating with other HCPs (not separately reported), independently interpreting results (not separately reported), communicating results to the patient/family/caregiver, and care coordination (not separately reported). Tri Dickerson PA-C [facility] [place] [facility] documented in this encounter [facility] 05-14-2024 Nurse Note Additional intake questions: Has the patient had fever, nausea, vomiting, diarrhea, constipation, fatigue for > 1 week? Yes, fatigue and Provider Notified Does patient have any new or increased numbness or tingling of extremities? No Is patient interested in fertility information? No Does patient need any prescription refills? No Does patient have an advanced directive in place? No, Patient refused referral to [facility] Work or Resource [place] Electronically Signed By: Orquidea Ocampo RN [facility] 05-14-2024 Nurse Note Additional intake questions: Has the patient had fever, nausea, vomiting, diarrhea, constipation, fatigue for > 1 week? Yes, fatigue and Provider Notified Does patient have any new or increased numbness or tingling of extremities? No Is patient interested in fertility information? No Does patient need any prescription refills? No Does patient have an advanced directive in place? No, Patient refused referral to Social Work or [facility] Electronically Signed By: Orquidea Ocampo RN documented in this encounter [facility] 04-23-2024 Nurse Note Additional intake questions: Has the patient had fever, nausea, vomiting, diarrhea, constipation, fatigue for > 1 week? No Does the patient have a decreased appetite? No Does patient want to see a Wind Farm Operations Manager? No (yes to any of above refer patient to schedulers for dietitian appointment) ) Does patient have any new or increased numbness or tingling of extremities? No Is patient interested in fertility information? No Does patient need any prescription refills? No Does patient have an advanced directive in place? No, Patient referred to [facility] 04-23-2024 Nurse Note Additional intake questions: Has the patient had fever, nausea, vomiting, diarrhea, constipation, fatigue for > 1 week? No Does the patient have a decreased appetite? No Does patient want to see a Wind Farm Operations Manager? No (yes to any of above refer patient to schedulers for dietitian appointment) ) Does patient have any new or increased numbness or tingling of extremities? No Is patient interested in fertility information? No Does patient need any prescription refills? No Does patient have an advanced directive in place? No, Patient referred to [facility] documented in this encounter [facility] 04-23-2024 Note [facility] 04-23-2024 History of Present illness Narrative THORACIC ONCOLOGY FOLLOW UP VISIT (Elements copied from my note dated February 19, , have been reviewed and updated where appropriate, and all reflect current assessment and medical decision making from today's encounter, April 23, 2024) DIAGNOSIS: [id number] stage SUE lung adenocarcinoma. Interval molecular data have demonstrated PD-L1 99%, KRAS G12C+, Current Treatment: Pemetrexed/Pembrolizumab 11/26/23-present Previous TREATMENT: GKRS to brain mets 07/28/23 [id number]-[id number]-nwd 08/10/2023- 10/29/23 ECOG PERFORMANCE STATUS: 1 INTERVAL HISTORY: Ms. Segura returns in follow up today for maintenance chemoIO. Overall feeling well. Her generalized weakness and fatigue improved as well as numbenss and tingling in hands and feet. HPI: Lashell Segura is a 53 year old female with recent diagnosis of stage IV non-small cell lung cancer, adenocarcinoma. Patient originally presented to with sudden onset expressive aphasia to the emergency room and had a witnessed generalized tonic-clonic seizure. Chest x-ray showed a left upper lobe mass concerning for malignancy. CT had showed left upper lobe lesion with significant vasogenic edema. [facility] evaluation. CT chest abdomen pelvis done on July 21 showed a 4.2 x 3.6 cm lingular mass associated with occlusion of lingular bronchus. There is some postobstructive atelectasis. There are numerous bilateral solid/nonsolid nodules with the largest being 1.6 x 1.1 cm in the right lower lobe. There is a large left hilar lymph node 11 mm as well as enlarged right hilar lymph node 12 mm. T11 compression fracture. Right breast 11 mm nodule. MRI brain shows a 1 cm left temporal lobe mass. Patient has bronchoscopy and endobronchial biopsy of the left upper lobe lesion was positive for adenocarcinoma PD-L1 99% ALK negative remaining molecular pathology is negative. Patient received gamma knife treatment on July 28, 24 Anton in 1 fraction,with no significant side effects REVIEW OF SYSTEMS GENERAL: No fevers, chills, or nightsweats HEENT: Negative for frequent or significant headaches HEMATOLOGY/LYMPHOLOGY Negative for prolonged bleeding, bruising easily, lumps or swollen Lymph nodes. PULMONARY: Negative for cough, hemoptysis, wheezing, COPD, dyspnea or shortness of breath CARDIOVASCULAR: Negative for leg swelling or palpitations. GI: Negative for N/V, diarrhea or constipation, abdominal discomfort, hematemesis, hematochezia or melena. MUSCULOSKELETAL: Negative for bone or joint pain or swelling, back pain or muscle pain. NEURO: No history of headaches, syncope, focal weakness or paralysis, seizures, numbness or tingling of hands or feet MEDICATIONS: iv contrast (will be provided with radiology test) MRI Brain Inject, intravenously, once for 1 dose.No IV access, insert saline lock prior to beginning of sedation, infusion, injection of imaging exam.Discontinue saline lock post exam. If Pt. has a central line or IVAD, may access for administration according to line specific nursing protocol.Once exam is complete flush line and de-access according to line specific nursing protocol in the MR contrast administration guidelines link furosemide (LASIX) 20 mg tablet take 1 tablet by mouth once daily folic acid 1 mg tablet take 1 tablet by mouth once daily lidocaine (SALONPAS) 4 % patch Apply 1 Patch as directed once daily. pyridoxine, vitamin B6, (VITAMIN B6) 100 mg tablet Take 1 tablet by mouth once daily. famotidine (PEPCID) 20 mg tablet Take 1 tablet by mouth two times a day. lacosamide (VIMPAT) 150 mg tab Take 1 tablet by mouth two times a day for 180 days. varenicline (CHANTIX) 1 mg tablet Take 1 tablet by mouth two times a day with meals. buPROPion SR (WELLBUTRIN SR) 150 mg 12 hr tablet Take 1 tablet by mouth two times a day. ibuprofen (MOTRIN) 200 mg tablet Take 200 mg by mouth every 6 hours as needed for pain. OLANZapine (ZYPREXA) 5 mg tablet Take 1 tablet by mouth daily at bedtime. Start on the day of chemotherapy and take for 5 night. ondansetron (ZOFRAN) 8 mg tablet Take 1 tablet by mouth every 8 hours as needed for nausea/vomiting. loperamide (IMODIUM A-D) 2 mg cap(s) Take 1 capsule by mouth four times a day as needed. prochlorperazine (COMPAZINE) 10 mg tablet Take 1 tablet by mouth every 4 hours as needed. pantoprazole DR (PROTONIX) 40 mg tablet Take 1 tablet by mouth daily at 6 am. acetaminophen (TYLENOL) 325 mg tablet 2 tablets by ORAL/FEEDING TUBE route every 4 hours as needed for pain. atorvastatin (LIPITOR) 40 mg tablet Take 40 mg by mouth once daily. DULoxetine (CYMBALTA) 60 mg capsule Take 60 mg by mouth once daily. ALLERGIES: ALLERGIES Allergen Reactions Eggs [Egg] Hives Latex Hives Penicillins Hives PHYSICAL EXAMINATION: Vitals: LMP 05/25/2016 There is no height or weight on file to calculate BSA. General: WD/WN woman in NAD. HEENT: Sclerae anicteric, conjunctiva non-injected. Wearing mask. No temporal wasting. Lungs: easy work of breathing. Symmetric chest movement Abdominal: No obvious ascites or organomegaly. Extremities: No digital clubbing, cyanosis, or edema. Skin: No rash, petechiae or purpura. Neurological: AOx3, mood and affect appropriate. Gait nml. LABORATORY VALUES: CBC: Recent Labs 04/23/24 1045 04/02/24 1052 03/12/24 0905 WBC 9.38 10.70 8.76 HB 14.3 14.6 15.3 PLT 405* 388 353 MCV 101.7* 100.0 99.1 BMP: Recent Labs 04/23/24 1045 04/02/24 1052 03/12/24 0905 NA 141 139 143 K 4.5 3.7 3.7 CHLOR 104 98 104 CO2 26 29 28 ANION 11 12 11 BUN 10 13 14 CREAT 0.87 0.94 0.89 GLUC 96 88 89 CHEM: Recent Labs 04/23/24 1045 04/02/24 1052 03/12/24 0905 07/20/23 1423 07/20/23 0318 ALB 4.6 4.7 4.9 < > 4.6 TPROT 7.8 7.8 7.6 < > 7.1 CA 9.7 10.1 10.0 < > -- MG -- -- -- -- 2.1 < > = values in this interval not displayed. HEPATIC: Recent Labs 04/23/24 1045 04/02/24 1052 03/12/24 0905 AST 36* 33 46* ALT 47* 38 70* TBILI 0.3 0.2 0.2 ALKPHOS 162* 143* 135* RADIOLOGY REVIEW: CT chest 02/18/2024. Not read yet. Reviewed by me and show improved disease. ASSESSMENT AND PLAN: 53 y/o female with [id number] stage SUE lung adenocarcinoma with brain met s/p GKRS. PD-L1 99% and molecular data revealed KRAS G12C mutation. #Met lung adenocarcinoma Received 4 cycles of [id number] since 08/10. Significant side effects fatigue and neuropathy led to holding 2nd cycle for one week and decreased dose by 20%. Feeling well today; labs OK; CT suggesting response. Will proceed with maintenance regular dose. Has compazine to alternate with zofran. RV in [address] in May Can consider single agent IO in the future given high PD-L1 status. If she progresses on treatment, will explore clinical trials for her KRAS G12C mutation. #Brain Mets - s/p GKRS. Repeat MRI showing resolution of lesion. Next MRI in 3 months #Breast nodule - Seen on CT chest, slight FDG avid; 11/11 US biopsy and clip placement. Invasive ductal carcinoma ER+/OH+; referred for surgery. S/p surgery 01/06/24 pT1N0 ER [place] pos. Her2 neg. Following with local oncology Joleen Jiang MD documented in this encounter [facility] 04-22-2024 Note [facility] 04-22-2024 History of Present illness Narrative Images from the original note were not included. [facility] NEURO-ONCOLOGY OUTPATIENT NOTE PURPOSE OF VISIT: Ongoing patient management CHIEF COMPLAINT : Brain met Subjective HISTORY OF PRESENT ILLNESS: Lashell Segura is a pleasant 53 year old year old left-handed female being seen for evaluation of previously diagnosed lung adenocarcinoma. 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 She is s/p GKRS by Dr. Connor Servin and Dr. Chandler Lieberman on 07/28/23 to 1) Left temporal. Primary cancer site : Lung Primary oncologist : Dr. Joleen Jiang Current systemic treatment : Pembrolizumab & Pemetrexed Current steroids : None Interval history: 01/08/24 Presents today with her daughter for follow-up with a new MRI brain scan for review. Reports some shakiness in both hands. She is following driving restrictions. 04/22/24 Presents today unaccompanied for follow-up with a new MRI brain scan for review. Since last visit, she has started taking Lasix for swelling in legs (improved). Has been trying to limit amount of Tylenol that she is taking for headaches/body aches. Social History Tobacco Use Smoking status: Every Day Current packs/day: 0.00 Average packs/day: 1 pack/day for 42.0 years (42.0 ttl pk-yrs) Types: Cigarettes Start date: 08/25/1981 Last attempt to quit: 08/25/2023 Years since quittin.6 Passive exposure: Current Smokeless tobacco: Never Tobacco comments: 2cigs/day Vaping Use Vaping status: Never Used Substance Use Topics Alcohol use: Yes Comment: social Drug use: Not Currently PAST MEDICAL HISTORY No date: Brain tumor (HCC) No date: Epilepsy (HCC) No date: Lung cancer (HCC) FAMILY HISTORY Problem Relation Age of Onset Systemic Lupus Erythematosus Mother Lung Cancer Mother COPD Father Diabetes Maternal Grandmother Diabetes Paternal Grandmother Colon Cancer Paternal Grandfather Anesthesia Problems No Family History Current Outpatient Medications Medication Sig furosemide (LASIX) 20 mg tablet take 1 tablet by mouth once daily folic acid 1 mg tablet take 1 tablet by mouth once daily lidocaine (SALONPAS) 4 % patch Apply 1 Patch as directed once daily. pyridoxine, vitamin B6, (VITAMIN B6) 100 mg tablet Take 1 tablet by mouth once daily. famotidine (PEPCID) 20 mg tablet Take 1 tablet by mouth two times a day. lacosamide (VIMPAT) 150 mg tab Take 1 tablet by mouth two times a day for 180 days. varenicline (CHANTIX) 1 mg tablet Take 1 tablet by mouth two times a day with meals. buPROPion SR (WELLBUTRIN SR) 150 mg 12 hr tablet Take 1 tablet by mouth two times a day. ibuprofen (MOTRIN) 200 mg tablet Take 200 mg by mouth every 6 hours as needed for pain. OLANZapine (ZYPREXA) 5 mg tablet Take 1 tablet by mouth daily at bedtime. Start on the day of chemotherapy and take for 5 night. ondansetron (ZOFRAN) 8 mg tablet Take 1 tablet by mouth every 8 hours as needed for nausea/vomiting. loperamide (IMODIUM A-D) 2 mg cap(s) Take 1 capsule by mouth four times a day as needed. prochlorperazine (COMPAZINE) 10 mg tablet Take 1 tablet by mouth every 4 hours as needed. pantoprazole DR (PROTONIX) 40 mg tablet Take 1 tablet by mouth daily at 6 am. acetaminophen (TYLENOL) 325 mg tablet 2 tablets by ORAL/FEEDING TUBE route every 4 hours as needed for pain. atorvastatin (LIPITOR) 40 mg tablet Take 40 mg by mouth once daily. DULoxetine (CYMBALTA) 60 mg capsule Take 60 mg by mouth once daily. No current facility-administered medications for this visit. REVIEW OF SYSTEMS : Neurological : + Complaint of headaches (uses Tylenol prn as above) No complaint of tinnitus No complaint of decreased hearing No complaint of diplopia + Complaints of blurred vision. No complaint of vision loss + Complaint of arm/leg numbness or tingling, hands/feet No problem with limb coordination or imbalance No complaint of syncope or LOC or falls + Complaint of tremor/shakiness, as above + Complaint of dizziness/vertigo, transient + Complaint of seizures, as above, [facility] (on Vimpat) No complaints of memory changes, confusion, or disorientation. Objective PHYSICAL EXAMINATION: BP 120/86 Pulse 104 Wt 76.9 kg (169 lb 8.5 oz) LMP 05/25/2016 SpO2 98% BMI 29.10 kg/m General appearance: Well appearing, alert, in no acute distress, well-hydrated, well nourished. NEUROLOGICAL EXAM: Higher integrative functions: Oriented to person, place & time. Attention Span and Concentration: Good. Language: Good comprehension. Fund of Knowledge: Good. 2nd CN: Full visual adam. 3rd,4th,6th CN: Pupils (=), round, react to light, full extraocular movements. 5th CN: No decrease in facial sensation 7th CN: Facial muscles symmetric and strong. 8th CN: Hears finger rub well bilaterally. 9th CN: + Gag not tested 10th CN: Spontaneous palate movement, full and symmetric. 11th CN: Full strength in shoulder shrug. 12th CN: Tongue protrusion full and midline. Sensation: No decrease in sensation in upper or lower limbs to touch. Musculoskeletal: Able to stand and ambulate independently with steady gait. Motor: 5/5, R=L, UE=LE. Normal muscle tone without atrophy in all limbs. Coordination: Rapid alternating movements fast and smooth all limbs. IMAGING STUDIES: MRI BRAIN WO/W IVCON IMPRESSION: Interval resolution of the previously identified 2 mm focus of enhancement in the left temporal lobe at the site of treatment. No new areas of enhancement or vasogenic edema. No evidence of leptomeningeal disease. Perfusion CBV maps are normal. Breakfast Cook: EVGENY Transcribe Date/Time: Apr 22 2024 11:24A Dictated by : SERGIO HANKINS MD This examination was interpreted and the report reviewed and electronically signed by: SERGIO HANKINS MD on Apr 22 2024 11:33AM EST * * *Final Report* * * DATE OF EXAM: Apr 22 2024 11:29AM [facility] 0295 - MRI BRAIN WO/W IVCON / PROCEDURE REASON: C79.31-Metastasis to brain (HCC) * * * * Physician Interpretation * * * * EXAMINATION: MRI BRAIN WO/W IVCON CLINICAL HISTORY: Status post gamma knife left temporal metastasis. TECHNIQUE: Routine brain MRI protocol without and with contrast including diffusion images. Perfusion with gadolinium. MQ: [id number] Contrast: 16 mL dotarem IV COMPARISON: MRI brain from 01/08/2024. Localization MRI brain from 07/28/2023. RESULT: Acute Change: There is no evidence of restricted diffusion to suggest an acute infarct. Hemorrhage: There is subtle susceptibility artifact in the expected location of the previously treated left temporal metastasis (series 4 image 47). No other areas of abnormal susceptibility artifact are identified on the study. Mass Lesion/ Mass Effect: No evidence of an intracranial mass or extra-axial fluid collection. No abnormal parenchymal or leptomeningeal enhancement is noted following contrast administration. No significant mass effect. Perfusion CBV maps are negative Chronic Change: Scattered punctate foci of increased T2 and FLAIR signal are noted in the supratentorial white matter which is a nonspecific finding, but likely represents minimal chronic microvascular ischemia. Parenchyma: No significant volume loss for age. The brain parenchyma is otherwise within normal limits of signal intensity and morphology. Ventricles: Normal caliber and morphology. Skull Base: Hypothalamic and pituitary region are grossly normal. Craniocervical junction is normal. No significant marrow replacement process. Vasculature: Major intracranial arterial structures, and dural venous sinuses show typical flow void, suggesting patency by spin echo criteria. Other: The visualized paranasal sinuses and mastoid air cells are clear. The orbits and extracranial soft tissues are unremarkable. KPS SCORE: 80 MEDICAL DECISION MAKING Assessment & Plan 1. 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 - New MRI brain scan today shows interval resolution of previously treated lesion - No new intracranial metastatic lesions identified - Images reviewed with her today - Recommend follow up appointment with a new MRI brain scan in 3 months - Reviewed signs and symptoms that would prompt sooner evaluation - She has our contact information and was advised to call if new symptoms, questions or concerns arise prior to next scheduled visit. - All questions were answered. Portions of this note have been copied and updated appropriately. I spent a total of 35 minutes on the date of the service which included preparing to see the patient, [id number] patient care, completing clinical documentation, obtaining and/or reviewing separately obtained history, performing a medically appropriate examination, counseling and educating the patient/family/caregiver, ordering medications, tests, or procedures, communicating with other HCPs (not separately reported), independently interpreting results (not separately reported), communicating results to the patient/family/caregiver, and care coordination (not separately reported). Mariela Rivera APRN.SLOT MACHINE KEY PERSON cc: Connor Servin MD & Joleen Jiang MD & Mark Mcdonnell MD - [facility] documented in this encounter [facility] 04-22-2024 History of Present illness Narrative Radiology Service Progress Note PATIENT NAME: Lashell Segura DATE OF SERVICE: April 22, 2024 TIME: 10:22 AM PATIENT IDENTITY VERIFICATION COMPLETED USING TWO (2) IDENTIFIERS: Name and Date of confirmed by patient verbally and Name and Date of confirmed by identification band. FALL SCREENING: Has the patient had 2 falls in the last year or 1 fall with injury or currently using an Ambulatory Assistive Device (Walker, Cane, Wheelchair, Crutches, etc.)? No PATIENT GENDER DATA: Female. status: : No status: NO. PATIENT RELEVANT IMPLANT DATA REVIEWED: Yes PATIENT PRESENTS WITH AN IMPLANTABLE OR ATTACHED CARPENTER APPRENTICE: No RADIOLOGY DEPARTMENT: MR; Exam(s) Completed: Head: Routine Brain with Perfusion PERIPHERAL IV DATA: Site assessment: Clean,Dry and Intact, Site disposition Discontinued SIGNED BY: RT Faina(R) April 22, 2024 10:22 AM documented in this encounter [facility] 04-22-2024 Note HNO ID: [id number] Author: YOLANDA JOHNSON RT(R) Service: Radiology Author Type: Technologist Type: Progress Notes Filed: 04/22/2024 10:22 Note Text: Radiology Service Progress Note PATIENT NAME: Lashell Segura DATE OF SERVICE: April 22, 2024 TIME: 10:22 AM PATIENT IDENTITY VERIFICATION COMPLETED USING TWO (2) IDENTIFIERS: Name and Date of confirmed by patient verbally and Name and Date of confirmed by identification band. FALL SCREENING: Has the patient had 2 falls in the last year or 1 fall with injury or currently using an Ambulatory Assistive Device (Walker, Cane, Wheelchair, Crutches, etc.)? No PATIENT GENDER DATA: Female. status: : No status: NO. PATIENT RELEVANT IMPLANT DATA REVIEWED: Yes PATIENT PRESENTS WITH AN IMPLANTABLE OR ATTACHED CARPENTER APPRENTICE: No RADIOLOGY DEPARTMENT: MR; Exam(s) Completed: Head: Routine Brain with Perfusion PERIPHERAL IV DATA: Site assessment: Clean,Dry and Intact, Site disposition Discontinued SIGNED BY: RT Faina(R) April 22, 2024 10:22 AM [facility] 04-22-2024 Nurse Note Radiology Service Progress Note DATE OF SERVICE: April 22, 2024 TIME: 10:09 AM PATIENT WEIGHT: 169 LBS PATIENT IDENTITY VERIFICATION COMPLETED USING TWO (2) STANDARD IDENTIFIERS: Name and Date of confirmed by patient verbally. FALL SCREENING: Has the patient had 2 falls in the last year or 1 fall with injury or currently using an Ambulatory Assistive Device (Walker, Cane, Wheelchair, Crutches, etc.)? No PATIENT GENDER DATA: Female. status: : No status: NO. ALLERGIES: Reviewed and unchanged CONTRAST ALLERGY: No EXAM: MRI - CONTRAST TYPE: GROUP II IV SITE: Ambulatory: A peripheral IV was started in the Left antecubital site with a Angio cath: 22 gauge. IV SITE APPEARANCE: Clean,Dry and Intact SIGNATURE: Zuri Ghosh RN PATIENT NAME: Lashell Segura DATE: April 22, 2024 TIME: 10:09 AM [facility] 04-22-2024 Nurse Note Radiology Service Progress Note DATE OF SERVICE: April 22, 2024 TIME: 10:09 AM PATIENT WEIGHT: 169 LBS PATIENT IDENTITY VERIFICATION COMPLETED USING TWO (2) STANDARD IDENTIFIERS: Name and Date of confirmed by patient verbally. FALL SCREENING: Has the patient had 2 falls in the last year or 1 fall with injury or currently using an Ambulatory Assistive Device (Walker, Cane, Wheelchair, Crutches, etc.)? No PATIENT GENDER DATA: Female. status: : No status: NO. ALLERGIES: Reviewed and unchanged CONTRAST ALLERGY: No EXAM: MRI - CONTRAST TYPE: GROUP II IV SITE: Ambulatory: A peripheral IV was started in the Left antecubital site with a Angio cath: 22 gauge. IV SITE APPEARANCE: Clean,Dry and Intact SIGNATURE: Zuri Ghosh RN PATIENT NAME: Lashell Segura DATE: April 22, 2024 TIME: 10:09 AM documented in this encounter [facility] 04-21-2024 Miscellaneous Notes Radiology Service Progress Note PATIENT NAME: Lashell Segura DATE OF SERVICE: April 21, 2024 TIME: 3:48 PM PATIENT IDENTITY VERIFICATION COMPLETED USING TWO (2) IDENTIFIERS: Name and Date of confirmed by patient verbally and Name and Date of confirmed by identification band. FALL SCREENING: Has the patient had 2 falls in the last year or 1 fall with injury or currently using an Ambulatory Assistive Device (Walker, Cane, Wheelchair, Crutches, etc.)? No PATIENT GENDER DATA: Female. status: : No status: NO. PATIENT RELEVANT IMPLANT DATA REVIEWED: Not Applicable PATIENT PRESENTS WITH AN IMPLANTABLE OR ATTACHED CARPENTER APPRENTICE: No RADIOLOGY DEPARTMENT: CT; Exam(s) Completed: Chest PERIPHERAL IV DATA: Not applicable SIGNED BY: Sarina ONEAL April 21, 2024 3:48 PM documented in this encounter [facility] 04-21-2024 Progress note Formatting of t his note might be different from the original. Radiology Service Progress Note PATIENT NAME: Lashell Segura DATE OF SERVICE: April 21, 2024 TIME: 3:48 PM PATIENT IDENTITY VERIFICATION COMPLETED USING TWO (2) IDENTIFIERS: Name and Date of confirmed by patient verbally and Name and Date of confirmed by identification band. FALL SCREENING: Has the patient had 2 falls in the last year or 1 fall with injury or currently using an Ambulatory Assistive Device (Walker, Cane, Wheelchair, Crutches, etc.)? No PATIENT GENDER DATA: Female. status: : No status: NO. PATIENT RELEVANT IMPLANT DATA REVIEWED: Not Applicable PATIENT PRESENTS WITH AN IMPLANTABLE OR ATTACHED CARPENTER APPRENTICE: No RADIOLOGY DEPARTMENT: CT; Exam(s) Completed: Chest PERIPHERAL IV DATA: Not applicable SIGNED BY: Sarina ONEAL April 21, 2024 3:48 PM [facility] 04-02-2024 Note Addended by: JOLEEN JIANG on: 04/02/2024 11:53 AM Modules accepted: Orders [facility] 04-02-2024 Miscellaneous Notes Addended by: JOLEEN JIANG on: 04/02/2024 11:53 AM Modules accepted: Orders documented in this encounter [facility] 04-02-2024 Nurse Note Additional intake questions: Has the patient had fever, nausea, vomiting, diarrhea, constipation, fatigue for > 1 week? No Does the patient have a decreased appetite? Yes Does patient want to see a Wind Farm Operations Manager? No (yes to any of above refer patient to schedulers for dietitian appointment) ) Does patient have any new or increased numbness or tingling of extremities? Yes, hands and feet Is patient interested in fertility information? No Does patient need any prescription refills? No Does patient have an advanced directive in place? No, Patient referred to [facility] 04-02-2024 Nurse Note Additional intake questions: Has the patient had fever, nausea, vomiting, diarrhea, constipation, fatigue for > 1 week? No Does the patient have a decreased appetite? Yes Does patient want to see a Wind Farm Operations Manager? No (yes to any of above refer patient to schedulers for dietitian appointment) ) Does patient have any new or increased numbness or tingling of extremities? Yes, hands and feet Is patient interested in fertility information? No Does patient need any prescription refills? No Does patient have an advanced directive in place? No, Patient referred to [facility] documented in this encounter [facility] 04-02-2024 History of Present illness Narrative Physician Slurry Man Established Patient Visit April 01, 2024 Portions of this encounter note have been copied from Jamel Pennington CNP previous note dated, 03/12/24, which has been updated where appropriate and all reflect current medical decision making from today, 04/02/2024. ATTENDING PHYSICIAN: Dr. Jiang DIAGNOSIS: [id number] stage SUE lung adenocarcinoma. BIOMARKERS: Interval molecular data have demonstrated PD-L1 99%, KRAS G12C+, Current Treatment: Pemetrexed/Pembrolizumab 11/26/23-present Previous TREATMENT: GKRS to brain mets 07/28/23 [id number] 08/10/2023- 10/29/23 INTERVAL HISTORY: Ms. Segura is a 53 year old female who presents for management of stage IV lung adenocarcinoma. She presents for planned cycle 9 of maintenance therapy. She is doing well overall. States she feels like her breathing is improving. Denies any chest pain. Denies nausea, vomiting or abdominal pain. 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 Denies any other concerns today. REVIEW OF SYSTEMS: PAIN ASSESSMENT: Negative for pain, history of chronic pain, or current treatment for a chronic pain condition. GENERAL: Negative for weakness, chills, and night sweats., weight has decreased 6 pounds since 03/12/24 RESPIRATORY: Negative for cough, hemoptysis, wheezing, COPD, dyspnea or shortness of breath CARDIOVASCULAR: Negative for chest pain, leg swelling, hypertension, CHF or palpitations GI: No nausea, vomiting, or diarrhea SKIN: Negative for lesions, rash, and itching. HEMATOLOGY/LYMPHOLOGY: Negative for prolonged bleeding, bruising easily or swollen nodes. NEURO: No history of headaches, syncope, paralysis, seizures or tremors The remainder of the review of systems is negative. Medications: pyridoxine, vitamin B6, (VITAMIN B6) 100 mg tablet Take 1 tablet by mouth once daily. famotidine (PEPCID) 20 mg tablet Take 1 tablet by mouth two times a day. lacosamide (VIMPAT) 150 mg tab Take 1 tablet by mouth two times a day for 180 days. furosemide (LASIX) 20 mg tablet Take 1 tablet by mouth once daily. varenicline (CHANTIX) 1 mg tablet Take 1 tablet by mouth two times a day with meals. buPROPion SR (WELLBUTRIN SR) 150 mg 12 hr tablet Take 1 tablet by mouth two times a day. ibuprofen (MOTRIN) 200 mg tablet Take 200 mg by mouth every 6 hours as needed for pain. OLANZapine (ZYPREXA) 5 mg tablet Take 1 tablet by mouth daily at bedtime. Start on the day of chemotherapy and take for 5 night. ondansetron (ZOFRAN) 8 mg tablet Take 1 tablet by mouth every 8 hours as needed for nausea/vomiting. folic acid 1 mg tablet Take 1 tablet by mouth once daily. loperamide (IMODIUM A-D) 2 mg cap(s) Take 1 capsule by mouth four times a day as needed. prochlorperazine (COMPAZINE) 10 mg tablet Take 1 tablet by mouth every 4 hours as needed. pantoprazole DR (PROTONIX) 40 mg tablet Take 1 tablet by mouth daily at 6 am. acetaminophen (TYLENOL) 325 mg tablet 2 tablets by ORAL/FEEDING TUBE route every 4 hours as needed for pain. atorvastatin (LIPITOR) 40 mg tablet Take 40 mg by mouth once daily. DULoxetine (CYMBALTA) 60 mg capsule Take 60 mg by mouth once daily. lidocaine (SALONPAS) 4 % patch Apply 1 Patch as directed once daily. Allergies: ALLERGIES Allergen Reactions Eggs [Egg] Hives Latex Hives Penicillins Hives PAST MEDICAL HISTORY No date: Brain tumor (HCC) No date: Epilepsy (HCC) No date: Lung cancer (HCC) Social History Tobacco Use Smoking status: Every Day Packs/day: 1.00 Years: 42.00 Additional pack years: 0.00 Total pack years: 42.00 Types: Cigarettes Last attempt to quit: 08/25/2023 Years since quittin.6 Passive exposure: Current Smokeless tobacco: Never Tobacco comments: 2cigs/day Vaping Use Vaping Use: Never used Substance Use Topics Alcohol use: Yes Comment: social Drug use: Not Currently Problem List: ACTIVE PROBLEM LIST S/P Lumpectomy of Breast - 02/13/2024 Neoplasm of Lung - 08/04/2023 Lung Mass - 07/21/2023 Breast Nodule - 07/21/2023 Tobacco Abuse - 07/21/2023 Vasogenic Brain Edema (Hcc) - 07/21/2023 At Risk for Lymphedema - 07/21/2023 Seizure (Hcc) - 07/21/2023 Metastasis to Brain (Hcc) - 07/20/2023 PHYSICAL EXAM: Vitals BP 137/80 Pulse 97 Temp 36.3 C (97.3 F) (Temporal) Resp 20 Wt 77 kg (169 lb 12.1 oz) LMP 05/25/2016 SpO2 99% BMI 29.14 kg/m ECOG PERFORMANCE STATUS: 1- Restricted in physically strenuous activity. Carries out light duty. General: Upon examination, Ms. Segura is an age-appropriate 53 year old female. Her affect and mood are pleasant and appropriate. She is alert and oriented and in NAD. She is accompanied by daughter today. Skin: Skin color, texture, turgor normal, no suspicious rashes or lesions Head: Normocephalic, no masses, lesions, tenderness or abnormalities Eyes: Anicteric sclera. Ears: External ears normal, Oropharynx: Lips, mucosa, and tongue normal, teeth and gums normal, oropharynx normal Neck: Supple, no adenopathy Lungs: Lungs clear to auscultation. No wheezing, rhonchi, rales. Heart: RRR without murmur, gallop, or rubs Abdomen: Normal abdominal exam, Abdomen soft, non-tender. Extremities: No deformities, edema, skin discoloration, clubbing or cyanosis Neuro: Gait normal. Laboratory Data WBC (k/uL) Date Value 04/02/2024 10.70 RBC (m/uL) Date Value 04/02/2024 4.22 Hemoglobin (g/dL) Date Value 04/02/2024 14.6 Hematocrit (%) Date Value 04/02/2024 42.2 MCV (fL) Date Value 04/02/2024 100.0 MCH (pg) Date Value 04/02/2024 34.6 (H) MCHC (g/dL) Date Value 04/02/2024 34.6 RDW-CV (%) Date Value 04/02/2024 15.5 (H) Platelet Count (k/uL) Date Value 04/02/2024 388 MPV (fL) Date Value 04/02/2024 8.1 (L) Neutrophils % (%) Date Value 01/29/2024 68.0 Lymphocytes % (%) Date Value 01/29/2024 29.0 Monocytes % (%) Date Value 01/29/2024 3.0 Eosinophils % (%) Date Value 07/20/2023 0.3 Basophils % (%) Date Value 01/29/2024 0.0 Abs Neut (k/uL) Date Value 04/02/2024 6.98 Abs Johnston (k/uL) Date Value 01/29/2024 0.15 Abs Eosin (k/uL) Date Value 01/29/2024 0.00 Abs Baso (k/uL) Date Value 01/29/2024 0.00 Glucose (mg/dL) Date Value 04/02/2024 88 BUN (mg/dL) Date Value 04/02/2024 13 Creatinine (mg/dL) Date Value 04/02/2024 0.94 Sodium (mmol/L) Date Value 04/02/2024 139 Potassium (mmol/L) Date Value 04/02/2024 3.7 Chloride (mmol/L) Date Value 04/02/2024 98 CO2 (mmol/L) Date Value 04/02/2024 29 Protein, Total (g/dL) Date Value 04/02/2024 7.8 Albumin (g/dL) Date Value 04/02/2024 4.7 Calcium, Total (mg/dL) Date Value 04/02/2024 10.1 Alkaline Phosphatase (U/L) Date Value 04/02/2024 143 (H) Bilirubin, Total (mg/dL) Date Value 04/02/2024 0.2 AST (U/L) Date Value 04/02/2024 33 ALT (U/L) Date Value 04/02/2024 38 No results found for: CEA No results found for: CV005MURB TSH (mIU/L) Date Value 03/12/2024 0.815 02/20/2024 0.769 01/29/2024 0.558 Imaging: Last CT/CTA Chest/Lungs CT CHEST WO IVCON Exam End: 02/18/2024 3:37 PM (Final result) Narrative: * * *Final Report* * * DATE OF EXAM: Feb 18 2024 3:37PM [facility] [place] CHEST [place] IVCON / PROCEDURE REASON: C34.90-Malignant neoplasm of unspecified part of unspecified bronchus or lung (H * * * * Physician Interpretation * * * * EXAMINATION: CHEST CT WITHOUT CONTRAST CLINICAL HISTORY: Lung cancer Technique: Spiral CT acquisition of the chest from the thoracic inlet to the upper abdomen without contrast. MQ: [id number] CT Radiation dose: Integrated Dose-length product (DLP) for this visit = 292 mGy*cm CT Dose Reduction Employed: Automated exposure control(AEC) and iterative recon Comparison: CT chest 11/26/2023 RESULT: Limitations: None. Lines, tubes, and devices: None. Lung parenchyma and airways: Decreased size of a consolidation in the left upper lobe and lingula with air bronchograms. There is narrowing and encasement of bronchi to the left upper lobe and lingula. Again noted are multiple bilateral solid and groundglass pulmonary nodules. For example: *7 mm nodule posterior right upper lobe (301:85) *9 mm nodule posterior right middle lobe (301:122) *1.8 x 1.6 cm groundglass nodule anterior right lower lobe (301:134), previously 1.5 x 1.3 cm *5 mm nodule left lower lobe (301:113) Mild emphysematous changes. Bilateral bronchial wall thickening. Pleural space: No pleural effusion. No pleural thickening. Lower neck, lymph nodes, and mediastinum: The imaged thyroid gland is normal. Unchanged ill-defined left perihilar soft tissue density material. Subcentimeter paratracheal lymph nodes. Previously described right hilar lymph node is not well-visualized due to lack of IV contrast. Heart, pericardium, and thoracic vessels: The thoracic aorta and main pulmonary artery are normal in caliber. The cardiac chambers are normal in size. No coronary artery atherosclerotic calcifications are noted, although the study is not optimized for coronary assessment. Small pericardial effusion. Bones and soft tissues: Remote compression deformity of the vertebral body of T11. No new destructive osseous lesion. Degenerative disease of the thoracic spine. Surgical clips in the right breast and axillary region. There is a new fat stranding in the right axilla, likely due to a recent biopsy. Upper abdomen: No abnormality in the imaged upper abdomen. Localizer images: No additional findings. Impression: IMPRESSION: 1. Decreased size of a consolidation in the left upper lobe and lingula 2. Increased size of a groundglass nodule in the anterior right lower lobe. Other pulmonary nodules appear unchanged 3. Ill-defined soft tissue density material in the left hilum appears unchanged. Previously described right hilar lymph node is not well-visualized due to lack of IV contrast. Breakfast Cook: PSCB Transcribe Date/Time: Feb 24 2024 3:33P Dictated by : JESSICA RADFORD MD This examination was interpreted and the report reviewed and electronically signed by: JESSICA RADFORD MD on Feb 24 2024 3:55PM EST ASSESSMENT/PLAN: Ms. Segura is a 53 year old female with stage IV lung adenocarcinoma. She presents today for planned cycle 9 of treatment and symptom check. (C34.90) Adenocarcinoma of lung, stage 4, unspecified laterality (HCC) (Z51.11, Z51.12) Encounter for antineoplastic chemotherapy and immunotherapy (primary encounter diagnosis) Comment: Doing well clinically. Tolerated last treatment well. Labs reviewed and meet treatment parameters. Plan: # Proceed with cycle 9 of maintenance pemetrexed and pembrolizumab # Continue daily folic acid # q9 weekly b12 injections, will get today # next CT scan prior to next cycle, 04/23, then follow up with Dr. Jiang (R63.4) Weight loss Comment: 14 lbs over the last 2 months, reports dietary changes Plan: # Encouraged no further weight loss # will continue to monitor # no acute interventions today # ensure/boost supplements Ms. Segura has been encouraged to increase her fluid intake. She has also been instructed to call our office with any questions or concerns including, but not limited to, fever at or above 100.4 F. Patient expressed understanding. Ms. Segura will return on 04/23/24 for next visit to discuss CT scan results and planned cycle 10 of treatment. I spent a total of 30 minutes on the date of the service which included preparing to see the patient, [id number] patient care, completing clinical documentation, obtaining and/or reviewing separately obtained history, performing a medically appropriate examination, counseling and educating the patient/family/caregiver, ordering medications, tests, or procedures, communicating with other HCPs (not separately reported), independently interpreting results (not separately reported), communicating results to the patient/family/caregiver, and care coordination (not separately reported). Tri Dickerson PA-C [facility] documented in this encounter [facility] 04-02-2024 Note [facility] 03-12-2024 Nurse Note Additional intake questions: Has the patient had fever, nausea, vomiting, diarrhea, constipation, fatigue for > 1 week? No Does patient have any new or increased numbness or tingling of extremities? No Is patient interested in fertility information? No Does patient need any prescription refills? No Does patient have an advanced directive in place? No, Patient refused referral to Social Work or Resource Center Electronically Signed By: Orquidea Ocampo RN [facility] 03-12-2024 Nurse Note Additional intake questions: Has the patient had fever, nausea, vomiting, diarrhea, constipation, fatigue for > 1 week? No Does patient have any new or increased numbness or tingling of extremities? No Is patient interested in fertility information? No Does patient need any prescription refills? No Does patient have an advanced directive in place? No, Patient refused referral to Social Work or Resource Center Electronically Signed By: Orquidea Ocampo RN documented in this encounter [facility] 03-12-2024 History of Present illness Narrative DIAGNOSIS: [id number] stage SUE lung adenocarcinoma. Interval molecular data have demonstrated PD-L1 99%, KRAS G12C+, Current Treatment: Pemetrexed/Pembrolizumab 11/26/23-present Previous TREATMENT: GKRS to brain mets 07/28/23 Nsyji-pro-waw 08/10/2023- 10/29/23 1- Restricted in physically strenuous activity. Carries out light duty. Interval History: She was started on 20 mg PO prednisone daily and has had significant improvement in her BLE swelling. Denies any rashes, joint pain, diarrhea. Does have some increased productive cough, especially in the morning. All other ROS negative. PAST MEDICAL HISTORY Diagnosis Date Brain tumor (HCC) Epilepsy (HCC) Lung cancer (HCC) PAST SURGICAL HISTORY Procedure Laterality Date SECTION HX KNEE SURGERY HX Right meniscus x2 REVISE MEDIAN N/CARPAL TUNNEL SURG Bilateral Current Outpatient Medications on File Prior to Visit Medication Sig pyridoxine, vitamin B6, (VITAMIN B6) 100 mg tablet Take 1 tablet by mouth once daily. famotidine (PEPCID) 20 mg tablet Take 1 tablet by mouth two times a day. lacosamide (VIMPAT) 150 mg tab Take 1 tablet by mouth two times a day for 180 days. furosemide (LASIX) 20 mg tablet Take 1 tablet by mouth once daily. varenicline (CHANTIX) 1 mg tablet Take 1 tablet by mouth two times a day with meals. buPROPion SR (WELLBUTRIN SR) 150 mg 12 hr tablet Take 1 tablet by mouth two times a day. ibuprofen (MOTRIN) 200 mg tablet Take 200 mg by mouth every 6 hours as needed for pain. OLANZapine (ZYPREXA) 5 mg tablet Take 1 tablet by mouth daily at bedtime. Start on the day of chemotherapy and take for 5 night. ondansetron (ZOFRAN) 8 mg tablet Take 1 tablet by mouth every 8 hours as needed for nausea/vomiting. folic acid 1 mg tablet Take 1 tablet by mouth once daily. loperamide (IMODIUM A-D) 2 mg cap(s) Take 1 capsule by mouth four times a day as needed. prochlorperazine (COMPAZINE) 10 mg tablet Take 1 tablet by mouth every 4 hours as needed. pantoprazole DR (PROTONIX) 40 mg tablet Take 1 tablet by mouth daily at 6 am. acetaminophen (TYLENOL) 325 mg tablet 2 tablets by ORAL/FEEDING TUBE route every 4 hours as needed for pain. atorvastatin (LIPITOR) 40 mg tablet Take 40 mg by mouth once daily. DULoxetine (CYMBALTA) 60 mg capsule Take 60 mg by mouth once daily. No current facility-administered medications on file prior to visit. ALLERGIES Allergen Reactions Eggs [Egg] Hives Latex Hives Penicillins Hives Social History Tobacco Use Smoking status: Every Day Packs/day: 1.00 Years: 42.00 Additional pack years: 0.00 Total pack years: 42.00 Types: Cigarettes Last attempt to quit: 08/25/2023 Years since quittin.5 Passive exposure: Current Smokeless tobacco: Never Tobacco comments: 2cigs/day Vaping Use Vaping Use: Never used Substance Use Topics Alcohol use: Yes Comment: social Drug use: Not Currently FAMILY HISTORY Problem Relation Age of Onset Systemic Lupus Erythematosus Mother Lung Cancer Mother COPD Father Diabetes Maternal Grandmother Diabetes Paternal Grandmother Colon Cancer Paternal Grandfather Anesthesia Problems No Family History ROS: As described above, all pertinent ROS negative. Physical Exam: LMP 05/25/2016 General appearance: Well appearing, alert, in no acute distress, well-hydrated, well nourished. Skin: Skin color, texture, turgor normal, no suspicious rashes or lesions Head: Normocephalic, no masses, lesions, tenderness or abnormalities Eyes: Anicteric sclera. Pupils are equally round and reactive to light. Extraocular movements are intact. Extremities: No deformities, edema, skin discoloration, clubbing or cyanosis. Good capillary refill. Neuro: Oriented X 3 Labs: Hemoglobin (g/dL) Date Value 03/12/2024 15.3 01/18/2016 14.6 Hematocrit (%) Date Value 03/12/2024 43.5 01/18/2016 41.1 WBC (k/uL) Date Value 03/12/2024 8.76 01/18/2016 10.06 Platelet Count (k/uL) Date Value 03/12/2024 353 01/18/2016 263 CMP: Glucose 89 03/12/2024 BUN 14 03/12/2024 Creatinine 0.89 03/12/2024 Sodium 143 03/12/2024 Potassium 3.7 03/12/2024 Chloride 104 03/12/2024 CO2 28 03/12/2024 Protein, Total 7.6 03/12/2024 Albumin 4.9 03/12/2024 Calcium 10.0 03/12/2024 Alkaline Phosphatase 135 03/12/2024 Bilirubin, Total 0.2 03/12/2024 AST 46 03/12/2024 ALT 70 Assessment/Plan: 53 y/o female with [id number] stage SUE lung adenocarcinoma with brain met s/p GKRS. PD-L1 99% and molecular data revealed KRAS G12C mutation. Labs reviewed and acceptable for treatment. K+ is normal at 3.7 mmol/L, so there is no need to replete at this time. Will proceed with pemetrexed and pembrolizumab today. RTC in 3 weeks. Jamel Pennington APRN.CNP Portions of this encounter note have been copied from Dr. Joleen Jiang previous note dated, 02/20/2024, which has been updated where appropriate and all reflect current medical decision making from today, 03/12/2024. documented in this encounter [facility] 03-10-2024 Miscellaneous Notes The following approved medication requests have been transmitted electronically. Requested Prescriptions Signed Prescriptions Disp Refills pyridoxine, vitamin B6, (VITAMIN B6) 100 mg tablet 90 tablet 1 Sig: Take 1 tablet by mouth once daily. Authorizing Provider: ANDREA GUADALUPE APRN.CNP Prescription Refill: Requested by: patient Please E-Scribe Caller Contact Number: [facility] Name: [facility] Number: [phone] Generic/ brand: Chance 30 or 90 day supply requested: 90 Last appointment: 03/05/24 Next Appointment: no Patient of Dr. Mcdonnell documented in this encounter [facility] 03-10-2024 Telephone encounter Note The following approved medication requests have been transmitted electronically. Requested Prescriptions Signed Prescriptions Disp Refills pyridoxine, vitamin B6, (VITAMIN B6) 100 mg tablet 90 tablet 1 Sig: Take 1 tablet by mouth once daily. Authorizing Provider: ANDREA GUADALUPE APRN.CNP [facility] 03-09-2024 Telephone encounter Note Prescription Refill: Requested by: patient Please E-Scribe Caller Contact Number: [facility] Number: [phone] Generic/ brand: Karstenradha 30 or 90 day supply requested: 90 Last appointment: 03/05/24 Next Appointment: no Patient of Dr. Mcdonnell [facility] 03-05-2024 Note HNO ID: [id number] Author: MARK MCDONNELL MD Service: ? Author Type: Physician Type: Progress Notes Filed: 03/05/2024 10:58 Note Text: [facility] Patient Name: Lashell Segura Date of : 1970 ESTABLISHED EPILEPSY CLINIC NOTE 03/05/2024 10:40 AM Reason for Visit: Follow Up and Epilepsy Clinical Summary: Ms. Segura is a 53 year old left-handed Write, eats, throws left handed. Strong family h/o left handedness female seen in [facility]. EPILEPSY CLASSIFICATION Left Temporal Lobe Epilepsy Seizures: 1. Aphasic Seizure -> Right Versive Seizure -> Generalized Tonic-Clonic Seizure 2. Subclinical EEG Seizure (no clinical signs) Etiology: Tumor (Tumor - other) Metastatic brain tumor-lung NSCLC primary HISTORY OF PRESENT ILLNESS Handedness: left-handed Write, eats, throws left handed. Strong family h/o left handedness Age of onset: Seizure History and Evolution Symptoms started 07/19/2023. Per she had nonsensical speech, difficulty getting words out. She was confused. Initial concern was for stroke. She was taken to [place] ED where as per stroke code CT CTA was done which showed a left temporal mass lesion. While in the ED patient had a witnessed seizure-described as eyes deviated to the right, head turned to the right, generalized tonic-clonic seizure. She was given Ativan and loaded with Keppra. She was transferred [facility] for further evaluation of brain mass. MRI brain confirmed left temporal lesion suspected to be metastatic associated with edema. CT chest abdominal pelvis showed compressed nodule and lung mass. She underwent bronchoscopy on 07/22/2023 with preliminary results showing non-small cell lung carcinoma. She was started on continuous EEG monitoring which showed PLEDs in the left hemisphere as well as NCS seizures from the left frontotemporal region. Keppra was increased to 1500 mg BID She underwent gamma knife radiation surgery on 07/28/2023 followed by steroid taper. She follows with oncology team (Dr. Joleen Jiang). She was started on chemotherapy with Pembrolizumab, Pemetrexed, Carboplatin. Currently on Pemetrexed/Pembrolizumab Most recent MRI in December 2023 shows near total resolution of T2 hyperintensity in the Left temporal region. Interval Seizure History No new seizures since last visit. Last seizure on 07/21/2024. Weaned off Keppra due to mood side-effects. Feels much better on Vimpat 150 mg BID. Total # of Current Anti-seizure Medications: Side Effects to Current Anti-seizure Medications: Seizure Frequency at First Visit: Longest Seizure-free Interval: Number of seizure types: 1 Hx of generalized tonic-clonic seizures: Yes Seizure-related driving accidents: No Driving: No Lives Alone: No CURRENT OUTPATIENT ANTISEIZURE MEDICATIONS (as of the start of the encounter) lacosamide (VIMPAT) 100 mg tab Take 1 tablet by mouth two times a day for 7 days, THEN 1.5 tablets two times a day for 21 days. lacosamide (VIMPAT) 150 mg tab Take 1 tablet by mouth two times a day for 180 days. Do not start before January 02, 2024. Prior Anti-seizure Therapies: Trial Adequacy: Max Daily Dose Achieved: Side Effects: Effectiveness: Comments: Levetiracetam Comorbidities: Minor: Brain Tumor Episode Description: SEIZURE TYPE 1: Aphasia-> right face clonic, right head deviation-> GTCS Description: Nonsensical speech for a few hours followed by right face, right head deviation and generalized tonic-clonic seizure. Loss of awareness: Duration: Frequency: Last occurred: SEIZURE TYPE 2: NCS Description: No clinical signs seizures arising from left frontotemporal region noted on EEG monitoring Loss of awareness: Duration: Frequency: Last occurred: Patient Entered Data: EPILEPSY SCORE No Data PHQ-9 SCORE - KHALIDA 2 SCORE - KHALIDA 7 SCORE - QOLIE-10 SCORE (0=worst; 100=best QoL - higher scores represent better function) - LSSS SCORE (0- no seizures 100- most severe possible seizures) - C-SSRS SCREEN - On average, how many hours of sleep do you get in a 24-hour period? - PROMIS Sleep Disturbance T-SCORE - Have you been diagnosed with Sleep Apnea? 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 Developmental Delay No Family history of seizures No Febrile Seizure Unanswered Complications No Stroke No Traumatic Brain Injury No Previous Epilepsy Evaluations Bedside EEG 07/21/2023 Interictal: Continuous Slow, Lateralized, Left Hemisphere PLEDs, Lateralized, Left hemisphere maximum left fronto-temporal region Ictal: EEG Seizure, Regional, Left Fronto-temporal No Clinical Signs Impression: This bedside EEG was recorded from 0430 on 07/21/2023 until 0732 on 07/22/2023 and is suggestive of an acute/subacute cortical dysfunction in the left hemisphere with epileptogenicity arising from the left (more content not included)... [facility] 03-05-2024 History of Present illness Narrative [facility] Patient Name: Lashell Segura Date of : 1970 ESTABLISHED EPILEPSY CLINIC NOTE 03/05/2024 10:40 AM Reason for Visit: Follow Up and Epilepsy Clinical Summary: Ms. Segura is a 53 year old left-handed Write, eats, throws left handed. Strong family h/o left handedness female seen in [facility]. EPILEPSY CLASSIFICATION Left Temporal Lobe Epilepsy Seizures: 1. Aphasic Seizure -> Right Versive Seizure -> Generalized Tonic-Clonic Seizure 2. Subclinical EEG Seizure (no clinical signs) Etiology: Tumor (Tumor - other) Metastatic brain tumor-lung NSCLC primary HISTORY OF PRESENT ILLNESS Handedness: left-handed Write, eats, throws left handed. Strong family h/o left handedness Age of onset: Seizure History and Evolution Symptoms started 07/19/2023. Per she had nonsensical speech, difficulty getting words out. She was confused. Initial concern was for stroke. She was taken to [place] ED where as per stroke code CT CTA was done which showed a left temporal mass lesion. While in the ED patient had a witnessed seizure-described as eyes deviated to the right, head turned to the right, generalized tonic-clonic seizure. She was given Ativan and loaded with Keppra. She was transferred to [facility] for further evaluation of brain mass. MRI brain confirmed left temporal lesion suspected to be metastatic associated with edema. CT chest abdominal pelvis showed compressed nodule and lung mass. She underwent bronchoscopy on 07/22/2023 with preliminary results showing non-small cell lung carcinoma. She was started on continuous EEG monitoring which showed PLEDs in the left hemisphere as well as NCS seizures from the left frontotemporal region. Keppra was increased to 1500 mg BID She underwent gamma knife radiation surgery on 07/28/2023 followed by steroid taper. She follows with oncology team (Dr. Joleen Jiang). She was started on chemotherapy with Pembrolizumab, Pemetrexed, Carboplatin. Currently on Pemetrexed/Pembrolizumab Most recent MRI in December 2023 shows near total resolution of T2 hyperintensity in the Left temporal region. Interval Seizure History No new seizures since last visit. Last seizure on 07/21/2024. Weaned off Keppra due to mood side-effects. Feels much better on Vimpat 150 mg BID. Total # of Current Anti-seizure Medications: Side Effects to Current Anti-seizure Medications: Seizure Frequency at First Visit: Longest Seizure-free Interval: Number of seizure types: 1 Hx of generalized tonic-clonic seizures: Yes Seizure-related driving accidents: No Driving: No Lives Alone: No CURRENT OUTPATIENT ANTISEIZURE MEDICATIONS (as of the start of the encounter) lacosamide (VIMPAT) 100 mg tab Take 1 tablet by mouth two times a day for 7 days, THEN 1.5 tablets two times a day for 21 days. lacosamide (VIMPAT) 150 mg tab Take 1 tablet by mouth two times a day for 180 days. Do not start before January 02, 2024. Prior Anti-seizure Therapies: Trial Adequacy: Max Daily Dose Achieved: Side Effects: Effectiveness: Comments: Levetiracetam Comorbidities: Minor: Brain Tumor Episode Description: SEIZURE TYPE 1: Aphasia-> right face clonic, right head deviation-> GTCS Description: Nonsensical speech for a few hours followed by right face, right head deviation and generalized tonic-clonic seizure. Loss of awareness: Duration: Frequency: Last occurred: SEIZURE TYPE 2: NCS Description: No clinical signs seizures arising from left frontotemporal region noted on EEG monitoring Loss of awareness: Duration: Frequency: Last occurred: Patient Entered Data: EPILEPSY SCORE No Data PHQ-9 SCORE - KHALIDA 2 SCORE - KHALIDA 7 SCORE - QOLIE-10 SCORE (0=worst; 100=best QoL - higher scores represent better function) - LSSS SCORE (0- no seizures 100- most severe possible seizures) - C-SSRS SCREEN - On average, how many hours of sleep do you get in a 24-hour period? - PROMIS Sleep Disturbance T-SCORE - Have you been diagnosed with Sleep Apnea? 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 Developmental Delay No Family history of seizures No Febrile Seizure Unanswered Complications No Stroke No Traumatic Brain Injury No Previous Epilepsy Evaluations Bedside EEG 07/21/2023 Interictal: Continuous Slow, Lateralized, Left Hemisphere PLEDs, Lateralized, Left hemisphere maximum left fronto-temporal region Ictal: EEG Seizure, Regional, Left Fronto-temporal No Clinical Signs Impression: This bedside EEG was recorded from 0430 on 07/21/2023 until 0732 on 07/22/2023 and is suggestive of an acute/subacute cortical dysfunction in the left hemisphere with epileptogenicity arising from the left fronto-temporal region. There was one EEG seizure arising from the left fronto-temporal region on 07/21/2023 at 2016 lasting 3 minutes with no apparent clinical signs. MRI brain 07/20/2023 1 cm enhancing ovoid mass within the left temporal lobe, with significant surrounding vasogenic edema, likely represents intraparenchymal metastasis. No associated restricted diffusion which would argue against abscess. No regional brain enhancement which would argue against a more generalized cerebritis. No evidence for acute ischemia or hemorrhage. MRI brain 01/08/2024 'IMPRESSION: Near complete resolution of the enhancing lesion previously identified adjacent to the anterior aspect of the left superior temporal sulcus. No new lesions. No evidence of leptomeningeal disease. No perfusion abnormalities. Other caregivers: Primary Care Provider: Martine Marrufo APRN.[employer]ACH[employer] KEY PERSON Current Outpatient Medications Medication Sig furosemide (LASIX) 20 mg tablet Take 1 tablet by mouth once daily. varenicline (CHANTIX) 1 mg tablet Take 1 tablet by mouth two times a day with meals. buPROPion SR (WELLBUTRIN SR) 150 mg 12 hr tablet Take 1 tablet by mouth two times a day. ibuprofen (MOTRIN) 200 mg tablet Take 200 mg by mouth every 6 hours as needed for pain. OLANZapine (ZYPREXA) 5 mg tablet Take 1 tablet by mouth daily at bedtime. Start on the day of chemotherapy and take for 5 night. ondansetron (ZOFRAN) 8 mg tablet Take 1 tablet by mouth every 8 hours as needed for nausea/vomiting. famotidine (PEPCID) 20 mg tablet Take 1 tablet by mouth two times a day. folic acid 1 mg tablet Take 1 tablet by mouth once daily. loperamide (IMODIUM A-D) 2 mg cap(s) Take 1 capsule by mouth four times a day as needed. prochlorperazine (COMPAZINE) 10 mg tablet Take 1 tablet by mouth every 4 hours as needed. pyridoxine, vitamin B6, (VITAMIN B6) 100 mg tablet Take 1 tablet by mouth once daily. pantoprazole DR (PROTONIX) 40 mg tablet Take 1 tablet by mouth daily at 6 am. acetaminophen (TYLENOL) 325 mg tablet 2 tablets by ORAL/FEEDING TUBE route every 4 hours as needed for pain. atorvastatin (LIPITOR) 40 mg tablet Take 40 mg by mouth once daily. DULoxetine (CYMBALTA) 60 mg capsule Take 60 mg by mouth once daily. lacosamide (VIMPAT) 150 mg tab Take 1 tablet by mouth two times a day for 180 days. No current facility-administered medications for this visit. ALLERGIES Allergen Reactions Eggs [Egg] Hives Latex Hives Penicillins Hives PAST MEDICAL HISTORY Diagnosis Date Brain tumor (HCC) Epilepsy (HCC) Lung cancer (HCC) PAST SURGICAL HISTORY Procedure Laterality Date SECTION HX KNEE SURGERY HX Right meniscus x2 REVISE MEDIAN N/CARPAL TUNNEL SURG Bilateral FAMILY HISTORY Problem Relation Age of Onset Systemic Lupus Erythematosus Mother Lung Cancer Mother COPD Father Diabetes Maternal Grandmother Diabetes Paternal Grandmother Colon Cancer Paternal Grandfather Anesthesia Problems No Family History SOCIAL HISTORY: -Lives in [place], [place] -Patient lives alone? No -Vocation: -Education: -Cigarette, alcohol, substance use: -Functional status: independent in activities of daily living -Patient driving? No Review of Systems All other systems reviewed and are negative. VITAL SIGNS: BP 116/87 Pulse 98 Resp 18 Wt 81.6 kg (180 lb) LMP 05/25/2016 BMI 30.90 kg/m General Examination: She is accompanied By her daughter. General: Awake, alert, interactive, no acute distress, good nutritional status, normal development, well-kept Neurological Exam Mental Status Alert, fully oriented, attentive, with normal cognition, memory, speech and affect. Cranial Nerves Face symmetric. Hearing intact with conversational speech. Motor Examination and Coordination Motor examination with normal bulk. Normal coordination. No adventitious movements or significant tremor. Gait Casual gait normal. IMPRESSION: Ms. 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 She is status post gamma knife radiation surgery for her brain metastasis followed by steroid taper, currently off of steroids. She was started on jucrtcaxsym-Tasepgwzubngm-Ntnpnlu xed by oncology team. She has no seizure recurrence, currently on Keppra 1500 mg BID with worsening mood and irritability despite vitamin B6 trial. 12/05/2023: Given mood and irritability side effects, we discussed switching Keppra to Vimpat. We discussed the possibility of breakthrough seizure during titration phase of medications. 03/05/2024 : Mood is better off of Keppra. Doing well on Vimpat 150 mg BID. PLAN: Continue Vimpat 150 mg BID. F/u in 6 months. Future options: Onfi, Xcopri, Depakote Data reviewed as above including: electronic medical record, MRI images Education Seizure precautions - No driving in the state [facility] until seizure free for 6 months. Please check with local state authorities for state specific driving regulations. - No operating heavy machines - No swimming without supervision or bathing in a bathtub due to risk of drowning in the event of a seizure. Patient may shower. - Avoid unsafe heights, including ladders, due to risk of fall-related injury in the event of a seizure. - Seizure precipitating factors discussed including not taking seizure medications as prescribed, stress, excessive caffeine intake, energy drinks, alcohol, sleep deprivation or any identifiable seizure precipitating factor. I discussed the risks, benefits and alternatives of the medical plan with the patient. Questions were answered. The patient agreed with the plan as discussed. FOLLOW-UP: Return in about 6 months (around 09/05/2024). I spent a total of 20 minutes on the date of the service which included: preparing to see the patient [id number] patient care completing clinical documentation obtaining and/or reviewing separately obtained history performing a medically appropriate examination counseling and educating the patient/family/caregiver ordering medications, tests, or procedures Mark Mcdonnell MD cc: Primary Care Physician: Martine Marrufo APRN.SLOT MACHINE KEY PERSON [address] [facility] [address] Referring: Patient: Ms. Lashell Segura [address] [facility] [id number] documented in this encounter [facility] 03-05-2024 Instructions Mark Mcdonnell MD - 03/05/2024 10:53 AM EDT Summary of the things we discussed today: Continue Vimpat 150 mg twice a day Follow up in 6 months. Please call my office if you have more seizures or with any seizure related concerns. Seizure precautions - No driving in the [facility] until seizure free for 6 months. Please check with local state authorities for state specific driving regulations. - No operating heavy machines - No swimming without supervision or bathing in a bathtub due to risk of drowning in the event of a seizure. Patient may shower. - Avoid unsafe heights, including ladders, due to risk of fall-related injury in the event of a seizure. - Seizure precipitating factors discussed including not taking seizure medications as prescribed, stress, excessive caffeine intake, energy drinks, alcohol, sleep deprivation or any identifiable seizure precipitating factor. Mark Mcdonnell MD Associate Staff, Epilepsy [facility] March 05, 2024 Office phone: [phone] documented in this encounter [facility] 03-02-2024 History of Present illness Narrative The [facility] ([facility]) NOTE TRAC clinic evaluation requested by Physician/DIDI Dr. Jiang for the evaluation of VTE/CAT Lashell Segura is a 53 year old female with lung cancer followed by our Lung team. Current treatment: pemetrexed/pembro Date of last treatment: 02/20/2024 Evaluation of Cancer Associated Thrombosis affecting the left lower and right lower extremity HPI: Ms. Segura is a 53 yo female who follows with Dr. Jiang. Had noted LE swelling last week in clinic, initially improved and has now returned and worsened. Called in to her team. Referred to CAT clinic for DVT assesment. Redness No Warmth No Pain/Tenderness No Swelling Yes Chest Pain No SOB No Prior VTE: No Travel No Injury No Surgery No Trauma No Current Anticoagulation No Immobility No Aspirin use No PAST MEDICAL HISTORY Diagnosis Date Brain tumor (HCC) Epilepsy (HCC) Lung cancer (HCC) PAST SURGICAL HISTORY Procedure Laterality Date SECTION HX KNEE SURGERY HX Right meniscus x2 REVISE MEDIAN N/CARPAL TUNNEL SURG Bilateral FAMILY HISTORY Problem Relation Age of Onset Systemic Lupus Erythematosus Mother Lung Cancer Mother COPD Father Diabetes Maternal Grandmother Diabetes Paternal Grandmother Colon Cancer Paternal Grandfather Anesthesia Problems No Family History Social History Tobacco Use Smoking status: Every Day Packs/day: 1.00 Years: 42.00 Additional pack years: 0.00 Total pack years: 42.00 Types: Cigarettes Last attempt to quit: 08/25/2023 Years since quittin.5 Passive exposure: Current Smokeless tobacco: Never Tobacco comments: 2cigs/day Vaping Use Vaping Use: Never used Substance Use Topics Alcohol use: Yes Comment: social Drug use: Not Currently Allergies: Eggs [Egg], Latex, and Penicillins Current Medications: varenicline (CHANTIX) 1 mg tablet Take 1 tablet by mouth two times a day with meals. buPROPion SR (WELLBUTRIN SR) 150 mg 12 hr tablet Take 1 tablet by mouth two times a day. ibuprofen (MOTRIN) 200 mg tablet Take 200 mg by mouth every 6 hours as needed for pain. OLANZapine (ZYPREXA) 5 mg tablet Take 1 tablet by mouth daily at bedtime. Start on the day of chemotherapy and take for 5 night. lacosamide (VIMPAT) 100 mg tab Take 1 tablet by mouth two times a day for 7 days, THEN 1.5 tablets two times a day for 21 days. lacosamide (VIMPAT) 150 mg tab Take 1 tablet by mouth two times a day for 180 days. Do not start before January 02, 2024. ondansetron (ZOFRAN) 8 mg tablet Take 1 tablet by mouth every 8 hours as needed for nausea/vomiting. famotidine (PEPCID) 20 mg tablet Take 1 tablet by mouth two times a day. folic acid 1 mg tablet Take 1 tablet by mouth once daily. loperamide (IMODIUM A-D) 2 mg cap(s) Take 1 capsule by mouth four times a day as needed. prochlorperazine (COMPAZINE) 10 mg tablet Take 1 tablet by mouth every 4 hours as needed. pyridoxine, vitamin B6, (VITAMIN B6) 100 mg tablet Take 1 tablet by mouth once daily. pantoprazole DR (PROTONIX) 40 mg tablet Take 1 tablet by mouth daily at 6 am. acetaminophen (TYLENOL) 325 mg tablet 2 tablets by ORAL/FEEDING TUBE route every 4 hours as needed for pain. atorvastatin (LIPITOR) 40 mg tablet Take 40 mg by mouth once daily. DULoxetine (CYMBALTA) 60 mg capsule Take 60 mg by mouth once daily. REVIEW OF SYSTEMS Reviewed and reported in HPI Objective: VITALS: There were no vitals taken for this visit. GEN APPEARANCE: alert and oriented, no acute distress EXT: no peripheral edema SKIN: normal color, no ulcerations, rashes, bruises, petechiae or purpura Pertinent Labs: No results found for: DDMER No results found for: CRP Estimated Creatinine Clearance: 83.9 mL/min (based on SCr of 0.78 mg/dL). Platelet Count Date Value Ref Range Status 02/20/2024 475 (H) 150 - 400 k/uL Final There is no height or weight on file to calculate BMI. Imagin03/02/2024 BLE doppler preliminary: FINDINGS -------- RIGHT SIDE Distal external iliac vein Doppler: normal flow. Compression: normal. Common femoral vein Doppler: normal flow. Compression: normal. Femoral vein Doppler: normal flow. Compression: normal. Popliteal vein Doppler: normal flow. Compression: normal. Posterior tibial veins Compression: normal. Peroneal veins Compression: normal. Great saphenous vein Compression: normal. Small saphenous vein Compression: normal. LEFT SIDE Distal external iliac vein Doppler: normal flow. Compression: normal. Common femoral vein Doppler: normal flow. Compression: normal. Femoral vein Doppler: normal flow. Compression: normal. Popliteal vein Doppler: normal flow. Compression: normal. Posterior tibial veins Compression: normal. Peroneal veins Compression: normal. Great saphenous vein Compression: normal. Small saphenous vein Compression: normal. IMPRESSION RIGHT SIDE - DEEP VEINS Negative for acute deep vein thrombosis. LEFT SIDE - DEEP VEINS Negative for acute deep vein thrombosis. Technologist: Hammad Begum Napoleon Assessment and Plan: Lashell Segura is a 53 year old presented to cancer thrombosis clinic. Ultrasound was performed which was Negative for DVT Dr. Jiang was notified of the results. Encouraged patient to follow up with primary team for any additional evaluation or management of symptoms. She will follow up with PCP/OT for right arm lymphedema. Reviewed s/s of VTE and to call with any new or worsening symptoms. Lashell Segura had time to ask questions. All concerns and questions were answered satisfactorily and she was encouraged to contact clinic with any questions or concerns. Patient's primary team has been updated. The patient was discharged from this [facility] encounter to Home Jessica Masterson PA-C Hematology/Oncology Pager [phone] March 02, 2024 10:02 AM cc: Dr. Joleen Jiang documented in this encounter [facility] 03-02-2024 Telephone encounter Note Please advise pt. In regards to right upper extremity lymphedema- Please ensure no s/s cellulitis associated with swelling. Please advise her to use the massage techniques & exercises she learned in OT & postop arm exercises to see if any improvement of symptoms. She needs to call & reschedule with OT (may have to go to a different location for a sooner appt given her symptoms). Please tell her to be added to the wait list as well. Agree with PCP/oncology evaluation of lower extremity concerns. Grace Pastor PA-C [facility] Work Phone: 03-02-2024 Miscellaneous Notes Please advise pt. In regards to right upper extremity lymphedema- Please ensure no s/s cellulitis associated with swelling. Please advise her to use the massage techniques & exercises she learned in OT & postop arm exercises to see if any improvement of symptoms. She needs to call & reschedule with OT (may have to go to a different location for a sooner appt given her symptoms). Please tell her to be added to the wait list as well. Agree with PCP/oncology evaluation of lower extremity concerns. Grace Pastor PA-C Paged [facility] @ [phone] asking for appt to r/o DVT. Waiting for response back. Addendum @ 4:05 pm: Called patient. Introduced self by name and title. Informed her that she can be seen here tomorrow @ 10:15 am in the [facility] Clinic to r/o DVT of her shyla lower legs. Patient aware to check in at the Registration Desk on [place] [address]. Patient states she has an appt with her PCP @ 4:30 pm today. Asked if she should cancel it? States she also has swelling in her arm. Instructed her to keep her pcp appt and let her know that she will have an US here tomorrow to r/o DVT. Patient voiced agreement to the plan. Jessie Scott, VANDANA-ED, RN Specialty Vehicle Body Builder - Lung Team [facility] Patient called with concerns of edema in her right arm and bilateral leg swelling and wasn't sure who she should ask for help to get some testing possibly ordered for it Patient has been seen by OT for her right arm swelling and states the cording is now better and only from her elbow to her wrist, but that area has become very swollen, more than it has been previously. She is not scheduled to see OT again due to having to cancel her March appointment She also has concerns now that she is having bilateral leg swelling, stating left is greater than right. She has tried to call for an appointment with her PCP but states they won't do anything due to her having cancer and don't want to interfere with that. She had previous swelling in her feet a few weeks ago that she showed her oncologist which they thought was due to the heat and it had improved but now the selling is severe and in both legs as well as her feet. Advised patient to schedule an appointment with her PCP today who is is [facility] in [place] but that I would pass this information along to her oncologist and breast team. documented in this encounter [facility] 03-01-2024 Telephone encounter Note Paged [facility] @ [phone] asking for appt to r/o DVT. Waiting for response back. Addendum @ 4:05 pm: Called patient. Introduced self by name and title. Informed her that she can be seen here tomorrow @ 10:15 am in the [facility] Clinic to r/o DVT of her shyla lower legs. Patient aware to check in at the Registration Desk on [place] [address]. Patient states she has an appt with her PCP @ 4:30 pm today. Asked if she should cancel it? States she also has swelling in her arm. Instructed her to keep her pcp appt and let her know that she will have an US here tomorrow to r/o DVT. Patient voiced agreement to the plan. Jessie Scott, VANDANA-ED, RN Specialty Vehicle Body Builder - Lung Team [facility] Work Phone: 03-01-2024 Telephone encounter Note Patient called with concerns of edema in her right arm and bilateral leg swelling and wasn't sure who she should ask for help to get some testing possibly ordered for it Patient has been seen by OT for her right arm swelling and states the cording is now better and only from her elbow to her wrist, but that area has become very swollen, more than it has been previously. She is not scheduled to see OT again due to having to cancel her March appointment She also has concerns now that she is having bilateral leg swelling, stating left is greater than right. She has tried to call for an appointment with her PCP but states they won't do anything due to her having cancer and don't want to interfere with that. She had previous swelling in her feet a few weeks ago that she showed her oncologist which they thought was due to the heat and it had improved but now the selling is severe and in both legs as well as her feet. Advised patient to schedule an appointment with her PCP today who is is [facility] in [place] but that I would pass this information along to her oncologist and breast team. T [facility] Work Phone: 02-23-2024 History of Present illness Narrative THORACIC ONCOLOGY FOLLOW UP VISIT (Elements copied from my note dated November 25, have been reviewed and updated where appropriate, and all reflect current assessment and medical decision making from today's encounter, February 20, 2024) DIAGNOSIS: [id number] stage SUE lung adenocarcinoma. Interval molecular data have demonstrated PD-L1 99%, KRAS G12C+, Current Treatment: Pemetrexed/Pembrolizumab 11/26/23-present Previous TREATMENT: GKRS to brain mets 07/28/23 [id number] 08/10/2023- 10/29/23 ECOG PERFORMANCE STATUS: 1 INTERVAL HISTORY: Ms. Segura returns in follow up today for maintenance chemoIO. Overall feeling well. Her generalized weakness and fatigue improved as well as numbenss and tingling in hands and feet. HPI: Lashell Segura is a 53 year old female with recent diagnosis of stage IV non-small cell lung cancer, adenocarcinoma. Patient originally presented to with sudden onset expressive aphasia to the emergency room and had a witnessed generalized tonic-clonic seizure. Chest x-ray showed a left upper lobe mass concerning for malignancy. CT had showed left upper lobe lesion with significant vasogenic edema. [facility] evaluation. CT chest abdomen pelvis done on July 21 showed a 4.2 x 3.6 cm lingular mass associated with occlusion of lingular bronchus. There is some postobstructive atelectasis. There are numerous bilateral solid/nonsolid nodules with the largest being 1.6 x 1.1 cm in the right lower lobe. There is a large left hilar lymph node 11 mm as well as enlarged right hilar lymph node 12 mm. T11 compression fracture. Right breast 11 mm nodule. MRI brain shows a 1 cm left temporal lobe mass. Patient has bronchoscopy and endobronchial biopsy of the left upper lobe lesion was positive for adenocarcinoma PD-L1 99% ALK negative remaining molecular pathology is negative. Patient received gamma knife treatment on July 28, 24 Anton in 1 fraction,with no significant side effects REVIEW OF SYSTEMS GENERAL: No fevers, chills, or nightsweats HEENT: Negative for frequent or significant headaches HEMATOLOGY/LYMPHOLOGY Negative for prolonged bleeding, bruising easily, lumps or swollen Lymph nodes. PULMONARY: Negative for cough, hemoptysis, wheezing, COPD, dyspnea or shortness of breath CARDIOVASCULAR: Negative for leg swelling or palpitations. GI: Negative for N/V, diarrhea or constipation, abdominal discomfort, hematemesis, hematochezia or melena. MUSCULOSKELETAL: Negative for bone or joint pain or swelling, back pain or muscle pain. NEURO: No history of headaches, syncope, focal weakness or paralysis, seizures, numbness or tingling of hands or feet MEDICATIONS: varenicline (CHANTIX) 1 mg tablet Take 1 tablet by mouth two times a day with meals. buPROPion SR (WELLBUTRIN SR) 150 mg 12 hr tablet Take 1 tablet by mouth two times a day. ibuprofen (MOTRIN) 200 mg tablet Take 200 mg by mouth every 6 hours as needed for pain. OLANZapine (ZYPREXA) 5 mg tablet Take 1 tablet by mouth daily at bedtime. Start on the day of chemotherapy and take for 5 night. lacosamide (VIMPAT) 100 mg tab Take 1 tablet by mouth two times a day for 7 days, THEN 1.5 tablets two times a day for 21 days. lacosamide (VIMPAT) 150 mg tab Take 1 tablet by mouth two times a day for 180 days. Do not start before January 02, 2024. ondansetron (ZOFRAN) 8 mg tablet Take 1 tablet by mouth every 8 hours as needed for nausea/vomiting. famotidine (PEPCID) 20 mg tablet Take 1 tablet by mouth two times a day. folic acid 1 mg tablet Take 1 tablet by mouth once daily. loperamide (IMODIUM A-D) 2 mg cap(s) Take 1 capsule by mouth four times a day as needed. prochlorperazine (COMPAZINE) 10 mg tablet Take 1 tablet by mouth every 4 hours as needed. midazolam (NAYZILAM) 5 mg/spray (0.1 mL) nasal spray Use 1 [place] in the nose as needed for seizures lasting longer than 5 minutes for up to 180 days. May repeat dose in alternate nostril after 10 minutes based on response and tolerability. (Patient not taking: Reported on 02/03/2024) pyridoxine, vitamin B6, (VITAMIN B6) 100 mg tablet Take 1 tablet by mouth once daily. levETIRAcetam (KEPPRA) 750 mg tablet 2 tablets by ORAL/FEEDING TUBE route two times a day. pantoprazole DR (PROTONIX) 40 mg tablet Take 1 tablet by mouth daily at 6 am. acetaminophen (TYLENOL) 325 mg tablet 2 tablets by ORAL/FEEDING TUBE route every 4 hours as needed for pain. atorvastatin (LIPITOR) 40 mg tablet Take 40 mg by mouth once daily. DULoxetine (CYMBALTA) 60 mg capsule Take 60 mg by mouth once daily. ALLERGIES: ALLERGIES Allergen Reactions Eggs [Egg] Hives Latex Hives Penicillins Hives PHYSICAL EXAMINATION: Vitals: Temp (Src) 97.2 (Temporal) Resp 18 Wt 178 lb 9.2 oz (81.0kg) LMP 05/25/2016 Body surface area is 1.91 meters squared. General: WD/WN woman in NAD. HEENT: Sclerae anicteric, conjunctiva non-injected. Wearing mask. No temporal wasting. Lungs: easy work of breathing. Symmetric chest movement Abdominal: No obvious ascites or organomegaly. Extremities: No digital clubbing, cyanosis, or edema. Skin: No rash, petechiae or purpura. Neurological: AOx3, mood and affect appropriate. Gait nml. LABORATORY VALUES: CBC: Recent Labs 02/20/24 1424 01/29/24 1401 11/26/23 1110 WBC 12.71* 4.96 8.93 HB 14.3 5.6* 11.5 PLT 475* 101* 309 MCV 98.8 107.1* 100.9* BMP: Recent Labs 02/20/24 1424 01/29/24 1401 11/26/23 1110 11/26/23 1042 10/29/23 1255 NA 140 137 138 -- 138 K 3.4* -- 3.8 -- 3.9 CHLOR 103 106 102 -- 100 CO2 21* 21* 24 -- 25 ANION 16* 10 12 -- 13 BUN 19 15 11 -- 12 CREAT 0.78 0.73 0.69 < > 0.73 GLUC 120* 153* 99 -- 106* < > = values in this interval not displayed. CHEM: Recent Labs 02/20/24 1424 01/29/24 1401 11/26/23 1110 07/20/23 1423 07/20/23 0318 ALB 4.7 4.2 4.1 < > 4.6 TPROT 7.5 6.8 6.9 < > 7.1 CA 10.0 8.9 9.6 < > -- MG -- -- -- -- 2.1 < > = values in this interval not displayed. HEPATIC: Recent Labs 02/20/24 1424 01/29/24 1401 11/26/23 1110 AST 87* 55* 42* ALT 122* 31 49* TBILI 0.2 0.2 <0.2* ALKPHOS 146* 112 85 RADIOLOGY REVIEW: CT chest 02/18/2024. Not read yet. Reviewed by me and show improved disease. ASSESSMENT AND PLAN: 53 y/o female with [id number] stage SUE lung adenocarcinoma with brain met s/p GKRS. PD-L1 99% and molecular data revealed KRAS G12C mutation. #Met lung adenocarcinoma Received 4 cycles of [id number]-kuc-xnc since 08/10. Significant side effects fatigue and neuropathy led to holding 2nd cycle for one week and decreased dose by 20%. Feeling better today; labs OK; CT suggesting response. will proceed with maintenance regular dose. Provided compazine to alternate with zofran. Imodium given for potential diarrhea. RV in 3 weeks. Can consider single agent IO in the future given high PD-L1 status. If she progresses on treatment, will explore clinical trials for her KRAS G12C mutation. #Brain Mets - s/p GKRS. Repeat MRI in September showing decreased lesion. #Breast nodule - Seen on CT chest, slight FDG avid; 11/11 US biopsy and clip placement. Invasive ductal carcinoma ER+/OH+; referred for surgery. S/p surgery 01/06/24 pT1N0 ER [place] pos. Her2 neg. Following with local oncology # Smoking cessation Chantix controlled urges but she relapsed. Will add wellbutrin. Joleen Jiang documented in this encounter [facility] 02-20-2024 Nurse Note Additional intake questions: Has the patient had fever, nausea, vomiting, diarrhea, constipation, fatigue for > 1 week? No Does the patient have a decreased appetite? Yes, pt reports a little bit. Does patient want to see a Wind Farm Operations Manager? No (yes to any of above refer patient to schedulers for dietitian appointment) ) Does patient have any new or increased numbness or tingling of extremities? No Is patient interested in fertility information? No Does patient need any prescription refills? No Does patient have an advanced directive in place? No [facility] 02-20-2024 Nurse Note Additional intake questions: Has the patient had fever, nausea, vomiting, diarrhea, constipation, fatigue for > 1 week? No Does the patient have a decreased appetite? Yes, pt reports a little bit. Does patient want to see a Wind Farm Operations Manager? No (yes to any of above refer patient to schedulers for dietitian appointment) ) Does patient have any new or increased numbness or tingling of extremities? No Is patient interested in fertility information? No Does patient need any prescription refills? No Does patient have an advanced directive in place? No documented in this encounter [facility] 02-18-2024 History of Present illness Narrative Radiology Service Progress Note PATIENT NAME: Lashell Segura DATE OF SERVICE: February 18, 2024 TIME: 3:34 PM PATIENT IDENTITY VERIFICATION COMPLETED USING TWO (2) IDENTIFIERS: Name and Date of confirmed by patient verbally and Name and Date of confirmed by identification band. FALL SCREENING: Has the patient had 2 falls in the last year or 1 fall with injury or currently using an Ambulatory Assistive Device (Walker, Cane, Wheelchair, Crutches, etc.)? No PATIENT GENDER DATA: Female. status: : No status: NO. PATIENT RELEVANT IMPLANT DATA REVIEWED: Yes PATIENT PRESENTS WITH AN IMPLANTABLE OR ATTACHED CARPENTER APPRENTICE: No RADIOLOGY DEPARTMENT: CT; Exam(s) Completed: Chest PERIPHERAL IV DATA: Not applicable SIGNED BY: ETHEL Hughes) February 18, 2024 3:34 PM documented in this encounter [facility] 02-18-2024 Note HNO ID: [id number] Author: LINDA MEJIA RT (R) Service: Radiology Author Type: Technologist Type: Progress Notes Filed: 02/18/2024 15:35 Note Text: Radiology Service Progress Note PATIENT NAME: Lashell Segura DATE OF SERVICE: February 18, 2024 TIME: 3:34 PM PATIENT IDENTITY VERIFICATION COMPLETED USING TWO (2) IDENTIFIERS: Name and Date of confirmed by patient verbally and Name and Date of confirmed by identification band. FALL SCREENING: Has the patient had 2 falls in the last year or 1 fall with injury or currently using an Ambulatory Assistive Device (Walker, Cane, Wheelchair, Crutches, etc.)? No PATIENT GENDER DATA: Female. status: : No status: NO. PATIENT RELEVANT IMPLANT DATA REVIEWED: Yes PATIENT PRESENTS WITH AN IMPLANTABLE OR ATTACHED CARPENTER APPRENTICE: No RADIOLOGY DEPARTMENT: CT; Exam(s) Completed: Chest PERIPHERAL IV DATA: Not applicable SIGNED BY: ETHEL Hughes) February 18, 2024 3:34 PM [facility] 02-13-2024 History of Present illness Narrative Program_ID:[id number] Access Code: [email or web address] URL: [email or web address] Date: 02-13-2024 Prepared By: Arleth Clay Program Notes Exercises - Supine Chest Stretch with Elbows Bent - 1 x daily - 7 x weekly - 1 sets - 3-5 reps - Single Arm Doorway Pec Stretch at 90 Degrees Abduction - 1 x daily - 7 x weekly - 1 sets - 3-5 reps - Standing Pec Stretch at Wall - 1 x daily - 7 x weekly - 1 sets - 3-5 reps - Single Arm Pec Stretch at Wall - 1 x daily - 7 x weekly - 1 sets - 3-5 reps Images from the original note were not included. Episode Visit Count: 1 Therapist That Will Accept/Oversee The Plan Of Care: Arleth Clay Start of Care Date: 02/13/24 Onset Date: 01/23/24 (3 weeks ago) Patient Identified by Name and Date of : Yes REHABILITATION AND SPORTS THERAPY PHYSICAL THERAPY EVALUATION PLAN OF CARE: Assessment: Lashell Segura presents with chief complaint of axillary cording, pain that interferes with reaching overhead, use hand with arm at shoulder level, lifting (sewing) . She presents with impairments in edema management, overall function, symptom management, and tissue tenderness. PROMIS (Patient-Reported Outcomes Measurement Information System) scores were reviewed and identified as a rehabilitation concern. Prognosis for therapy is Good due to: current objective clinical presentation, good overall health status, good support system/ coping skills . She will benefit from skilled therapy services to meet the goals established for this plan of care as noted below. Goals for Episode of Care: created on 02/13/24 through 03/14/24 Wise in home exercise program. Patient will decrease pain rating by 2 points to meet minimal clinical important difference for numeric pain rating scale. Perform reaching overhead;use hand with arm at shoulder level;lifting; sewing with decreased report of symptoms/pain in 4-6 weeks. Patient / family knowledgeable re: all pertinent aspects of CDT Patient Goals: To get it to quit hurting. Planned Interventions, Frequency, and Duration: Current Frequency: 1 visit Duration: 4 weeks Total Number of Visits Planned: 1 Planned Treatment Interventions: Therapeutic exercise (34932), Manual therapy (74835), Self-mcfp management (53545), Patient/Family/Caregiver Education PLAN FOR NEXT VISIT: Reassess cording and soft tissue R UE. May assess volume/measurements also. May initiate manual techniques for cording if remains present. Progress HEP as needed. May instruct in UE decongestive exercises if edema is of concern. Patient demonstrates good understanding of plan of care and treatment. The above goals and plan of care were discussed and agreed upon by patient/family. SUBJECTIVE: Pt reporting cording started aobut 3 weeks ago. Noticed while she was doing the exercises started getting really painful to reach arm overhead. Tuckerman hard nodule at armpit and tight, painful down arm to wrist and hand. Arms feels heavy, swollen, like a lead brick. Patient Goals: To get it to quit hurting. Functional Limitations: reaching overhead, use hand with arm at shoulder level, lifting (sewing) Prior Level of Function: Independent without limitations Relevant History Right or Left Handed: Left Hobbies / Interests: crafts, sewing Home Environment Patient Lives With: Spouse Intake Information: Prescription present Previous Treatment: Self prescribed exercises, Exercises per physician (Pt states she received a handout of stretches to do.) Pain: Pain Pain Level: 0 (at rest, If I make it reach or do something it's a 12.) Pain Location: Axilla - Right, Upper Arm - Right, Forearm - Right, Wrist - Right, Hand - Right Frequency: Intermittent Post Treatment Pain Post Treatment Pain Level: No Change PROMIS Scales 02/11/2024 Higher is Better Phys Func - Score 33 (moderate dysfunction) Phys Func - Percentile 4 Self-Eff Symptom - Score 36 (Low) Self-Eff Symptom - Percentile 8 T-scores: mean of general population = 50. 5 points is clinically meaningfully difference Percentiles provide an indication of how the patient's score ranks in relation to the general population. Higher percentile rankings indicate better function/quality of life. 50th percentile is the average of the general population and indicates half of respondents had a worse score. OBJECTIVE MEASURES WITH LEVEL OF FUNCTION: Lymphedema Presents with: Functional Limitations, Pain, Decreased knowledge of lymphedema management, Swelling Relative Contra-indications to Compression: : None Relative Contra-indications to Manual Lymph Drainage: : None Relative Contra-indications to Neck Manual Lymph Drainage: : None Skin: Skin Comments Skin Comments:: Palpable cording present in R axilla, upper arm, distal forearm/wrist with pt noting tenderness to palpation. Upper Extremity Circumferential Measurements R Thumb (proximal phalanx) (cm): 7 cm R Index Finger (proximal phalanx) (cm): 7 cm R Middle Finger (proximal phalanx) (cm): 6.5 cm R Ring Finger (proximal phalanx) (cm): 6 cm R Small Finger (proximal phalanx) (cm): 5.5 cm R DPC (cm): 21 cm R Distal Wrist Crease (DWC) (cm): 17.5 cm R 4 cm above wrist (cm): 19.5 cm R 8 cm above wrist (cm): 22 cm R 12 cm above wrist (cm): 26 cm R 16 cm above wrist (cm): 27 cm R 20 cm above wrist (cm): 28 cm (elbow) R 24 cm above wrist (cm): 28 cm R 28 cm above wrist (cm): 30 cm R 32 cm above wrist (cm): 31.5 cm R 36 cm above wrist (cm): 34 cm R 40 cm above wrist (cm): 35 cm L Thumb (proximal phalanx) (cm): 7 cm L Index Finger (proximal phalanx) (cm): 7 cm L Middle Finger (proximal phalanx) (cm): 6.5 cm L Ring Finger (proximal phalanx) (cm): 6 cm L Small Finger (proximal phalanx) (cm): 5.5 cm L DPC (cm): 20.5 cm L Distal Wrist Crease (DWC) (cm): 17.5 cm L 4 cm above wrist (cm): 18.5 cm L 8 cm above wrist (cm): 21 cm L 12 cm above wrist (cm): 24 cm L 16 cm above wrist (cm): 26 cm L 20 cm above wrist (cm): 26 cm (elbow) L 24 cm above wrist (cm): 28 cm L 28 cm above wrist (cm): 29.5 cm L 32 cm above wrist (cm): 31 cm L 36 cm above wrist (cm): 33 cm L 40 cm above wrist (cm): 34 cm Affected Arm : Right Arm Calculate Volume : Yes R Upper Extremity Volume: 2434.45 L Upper Extremity Volume: 2274.2 Difference in Volume: 160.25 Difference in % : 6.58 Breast Cancer Related Stage of Lymphedema: Grade 2: Mild- Limb volume 5%-8% greater than baseline UE AROM R Shoulder Flex: 170 Degrees (end range pain/pulling) R Shoulder ABduction: 180 Degrees (end range pain/pulling) R Shoulder Internal Rotation (Functional): back of hand to lower thoracic spine (mild pulling end range) R Shoulder External Rotation: 57 Degrees (pulling in forearm) L Shoulder Flex: 170 Degrees L Shoulder ABduction: 180 Degrees L Shoulder Internal Rotation (Functional): back of hand to lower thoracic spine L Shoulder External Rotation: 65 Degrees Vitals BP: (Deferred today) Education: Education Learning Preferences: Demonstration, Explanation Barriers: None Learning/educational needs: Home exercise program, Plan of Care, Lymphedema Program Education Provided: Yes, see treatment interventions for education provided Education Provided To: Patient, Family Education Mode/Type: Demonstration, Explanation/Discussion, Literature/Printed Materials, Performance Response to Education/Teach Back: States/Identifies, Return Demonstration TREATMENT: PT Treatment Interventions: Therapeutic Exercise, Self-Senior Living Management Evaluation Therapeutic Exercise: 1: Reviewed stretches pt is curently performing with modifications/corrections to form as needed. 2: *wall shld flex/abd stretch 5 x 30 sec 3: *doorwary shld stretch 5 x 30 sec 4: *supine or seated butterfly stretch 5 x 30 sec 5: *shld ext/ER stretch using wall or holdin gback of chair 5 x 30 sec Skilled Intervention: Patient was educated in proper exercise technique and purpose for exercises. Reviewed and educated patient on additions/changes for home exercise program. Skilled judgment was used in selection of appropriate interventions. Provided written instruction for home exercise program to facilitate proper performance and compliance. Correct performance of therapeutic exercises was facilitated with verbal and visual cuing. Patient education as noted. 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 2: Educated pt in self-massage techniques to apply to cording (cross-friction, massage,etc.). 3: Educated pt in basics of lymphedema and signs/symptoms. Skilled Intervention: Educated the patient regarding recommendations and provided written instruction to facilitate compliance. Reviewed patient specific diagnosis in relation to activities of daily living/home management. Billing * Evaluation Low Complexity: 1 Unit Therapeutic Exercise Treatment Minutes: 15 Self-Care/Home Management Treatment Minutes: 10 Skilled Treatment Time Minutes (timed and untimed codes): 44 Total Session Time (minutes): 44 Session Start Time : 1108 Session Stop Time : 1152 Arleth Clay PT documented in this encounter [facility] 02-09-2024 Telephone encounter Note Care Coordination Triage Note [facility] Situation: Patient reports Cough/Respiratory Concerns/SOB Background: Disease, current pertinent medications/treatments: 01/29/24 Pembrolizumab/Pemetrexed Cycle 6 Assessment: Patient reports productive cough with green phlegm. Denies fever, SOB. Recommendations: Per Dr. Jiang, patient directed to: Manage at home. Instructions provided. Antibiotic sent to local [facility]. Patient thanked us for the call. Marta Moore RN February 09, 2024 3:06 PM [facility] 02-09-2024 Miscellaneous Notes Care Coordination Triage Note [facility] Situation: Patient reports Cough/Respiratory Concerns/SOB Background: Disease, current pertinent medications/treatments: 01/29/24 Pembrolizumab/Pemetrexed Cycle 6 Assessment: Patient reports productive cough with green phlegm. Denies fever, SOB. Recommendations: Per Dr. iJang, patient directed to: Manage at home. Instructions provided. Antibiotic sent to local [facility]. Patient thanked us for the call. Marta Mooer RN February 09, 2024 3:06 PM documented in this encounter [facility] 02-03-2024 Nurse Note Radiation Therapy - Nursing Note (Consult) PATIENT NAME: Lashell Segura PATIENT February 03, 2024 [facility] FACILITY/LOCATION: [place] Chief Complaint: Breast cancer Reason for visit: Consult. Referring physician: Internal provider Dr. Juarez Subjective Data: I do have cording in the right arm that goes up to the arm pit area I did send message to the Breast surgeon's staff. Additional Data Do you want to see a Wind Farm Operations Manager? No Are you interested in information about fertility? No Sexual Activity: Female: not asked Stress Scale: On a scale of 0 to 10, what number best describes how much distress you have experienced in the past week?(0 being no distress and 10 being extreme distress) increased with DX Social work notified: no GENERAL INFORMATION: PREVIOUS CHEMOTHERAPY: see [facility] for list PREVIOUS RADIATION THERAPY: yes GKRT 07-28-23 PREVIOUS HORMONAL THERAPY: no NURSING ASSESSMENT: EYES: denies EARS: denies RESPIRATORY: cough, shortness of breath, and sputum production CARDIOVASCULAR: Denies, Chest pain, Pacemaker, Defibrillator, and Palpitations GASTROINTESTINAL: denies GENITOURINARY: denies GYNECOLOGIC: last menstrual period age 45, age at onset of menses 11, age at first childbirth 20, 3 para 3, menopause age 45 hormone replacement therapy no INTEGUMENTARY: denies, edema, easy bruising MUSCULOSKELETAL: arthritis and cording RUE NEUROLOGIC: orientation - person, place and time, on seizure meds h/o brain mets had GKRT PSYCHIATRIC: anxiety and depression NUTRITION: Are you currently following any diet? No Have you had any unintentional weight loss? No Do you have any difficulty chewing or swallowing? No Dietary Intake: Regular diet without any changes CONSULTS: No consults at this time OTHER INFORMATION: Are you currently residing at home? Yes Do you receive homecare services? No Do you drive? No Is the patient interested in van services? Not Applicable Do you have medical equipment or oxygen in the home? No Employment: not currently ADVANCED DIRECTIVES: Does the patient have an advanced directive? Not asked at this visit Assessed and policy reviewed. PATIENT EDUCATION: Topic: Radiation This education session included the patient and family. Prior to initiation, barriers to learning and limitations were assessed. Readiness to learn: Cognitive ability: Alert and oriented Motivation to learn: Interested - wants to learn Patient learns best by: multiple methods Barriers to learning: None Family support: High - Very involved in pt care Learning response: Topic: Radiation Therapy Method of instruction: Individual instruction Written instruction - handouts Verbal instruction Supplemental Material: Individualized patient education folder given and reviewed. During this visit, the patient was educated on potential side effects related to treatment. Teach back method of education was performed. The patient and family verbalized understanding. SIGNED by: Spring Sosa RN [facility] 02-03-2024 Nurse Note Radiation Therapy - Nursing Note (Consult) PATIENT NAME: Lashell Segura PATIENT February 03, 2024 [facility] FACILITY[facility]LOCATION: [place] Chief Complaint: Breast cancer Reason for visit: Consult. Referring physician: Internal provider Dr. Juarez Subjective Data: I do have cording in the right arm that goes up to the arm pit area I did send message to the Breast surgeon's staff. Additional Data Do you want to see a Wind Farm Operations Manager? No Are you interested in information about fertility? No Sexual Activity: Female: not asked Stress Scale: On a scale of 0 to 10, what number best describes how much distress you have experienced in the past week?(0 being no distress and 10 being extreme distress) increased with DX Social work notified: no GENERAL INFORMATION: PREVIOUS CHEMOTHERAPY: see [facility] for list PREVIOUS RADIATION THERAPY: yes GKRT 07-28-23 PREVIOUS HORMONAL THERAPY: no NURSING ASSESSMENT: EYES: denies EARS: denies RESPIRATORY: cough, shortness of breath, and sputum production CARDIOVASCULAR: Denies, Chest pain, Pacemaker, Defibrillator, and Palpitations GASTROINTESTINAL: denies GENITOURINARY: denies GYNECOLOGIC: last menstrual period age 45, age at onset of menses 11, age at first childbirth 20, 3 para 3, menopause age 45 hormone replacement therapy no INTEGUMENTARY: denies, edema, easy bruising MUSCULOSKELETAL: arthritis and cording RUE NEUROLOGIC: orientation - person, place and time, on seizure meds h/o brain mets had GKRT PSYCHIATRIC: anxiety and depression NUTRITION: Are you currently following any diet? No Have you had any unintentional weight loss? No Do you have any difficulty chewing or swallowing? No Dietary Intake: Regular diet without any changes CONSULTS: No consults at this time OTHER INFORMATION: Are you currently residing at home? Yes Do you receive homecare services? No Do you drive? No Is the patient interested in van services? Not Applicable Do you have medical equipment or oxygen in the home? No Employment: not currently ADVANCED DIRECTIVES: Does the patient have an advanced directive? Not asked at this visit Assessed and policy reviewed. PATIENT EDUCATION: Topic: Radiation This education session included the patient and family. Prior to initiation, barriers to learning and limitations were assessed. Readiness to learn: Cognitive ability: Alert and oriented Motivation to learn: Interested - wants to learn Patient learns best by: multiple methods Barriers to learning: None Family support: High - Very involved in pt care Learning response: Topic: Radiation Therapy Method of instruction: Individual instruction Written instruction - handouts Verbal instruction Supplemental Material: Individualized patient education folder given and reviewed. During this visit, the patient was educated on potential side effects related to treatment. Teach back method of education was performed. The patient and family verbalized understanding. SIGNED by: Spring Sosa RN documented in this encounter [facility] 02-03-2024 History of Present illness Narrative Radiation Oncology - New Patient/Consult Note PATIENT NAME: Lashell Segura PATIENT REQUESTING PROVIDER: Love Juarez MD DIAGNOSIS: 53 year old female with NSCLC (ISIDORO, PD-L1+ 99%) of the REILLY, metastatic to brain, managed with carboplatin/pemetrexed/pembrolizu mab and GKRS 07/28/23. 2. IDC of the right breast, UOQ (10:00 position), [id number], pT1cN0(sn) cM0, Stage IA, s/p: Right partial mastectomy/SLNB 01/06/24 [IDC, Gr I, 1.8 cm, margins-, extended margins-, 0/2 SLN, LVI-; ER+(100%)/OH+(100%)/HER2-] Cancer Staging Neoplasm of lung Staging form: Lung, AJCC 8th Edition - Clinical: Stage SUE (cT2b, cN3, pM1b) - Signed by Joleen Jiang MD on 08/05/2023 HPI: 53 year old female who presents with above diagnosis, for an opinion regarding the role of radiation therapy in the management of the patient's disease. Final recommendations will be communicated back to the requesting physician by way of the shared medical record, or letter to requesting physician via [place] mail. Mrs. Segura has a history of NSCLC diagnosed in 2022 with sudden onset of expressive aphasia and generalized tonic-clonic seizure. He was found to have a left upper lobe mass for which biopsy showed adenocarcinoma, PD-L1 99%. Staging showed disease metastatic to brain ([id number]); she is being managed with carboplatin/pemetrexed/pembrolizu mab and GKRS 07/28/23. She was found to have a hypermetabolic right breast lesion on 08/20/2023 PET/CT performed for staging during lung cancer workup (seen was a hypermetabolic left hilar mass and few scattered foci of activity in the left ribs associated with fracture deformities favored to be trauma related). Screening mammogram with tomosynthesis on 09/23/2023 showed a 1.4 cm irregular mass in the right breast, 11 o'clock position posterior depth. Ultrasound on 10/27/2023 showed a 1.1 cm irregular mass in the right breast, 10 o'clock position, middle depth and a right axillary lymph node suspicious of malignancy. Breast biopsy on 11/12/2023 showed invasive ductal carcinoma, Gr I, ER+(100%)/OH+(100%)/HER2-; lymph node biopsy showed no metastatic disease. Dr. Juarez performed a right partial mastectomy with sentinel lymph node biopsy on 01/06/2024. Pathology showed a 1.8 cm focus of invasive ductal carcinoma, Gr I, margins-, extended margins-, 0/2 SLN, LVI-, pT1cN0(sn). She has been referred to us for consideration of radiotherapy options in the management of her disease. Prior radiation therapy or collagen vascular disease: Yes - GKRS Any implanted or external electric devices? No status: Post-menopausal. ALLERGIES Allergen Reactions Eggs [Egg] Hives Latex Hives Penicillins Hives PAST MEDICAL HISTORY Diagnosis Date Brain tumor (HCC) Epilepsy (HCC) Lung cancer (HCC) PAST SURGICAL HISTORY Procedure Laterality Date SECTION HX KNEE SURGERY HX Right meniscus x2 REVISE MEDIAN N/CARPAL TUNNEL SURG Bilateral FAMILY HISTORY Problem Relation Age of Onset Systemic Lupus Erythematosus Mother Lung Cancer Mother COPD Father Diabetes Maternal Grandmother Diabetes Paternal Grandmother Colon Cancer Paternal Grandfather Anesthesia Problems No Family History TECHNICAL SERVICES ANALYST HISTORY: OB History T0 L0 SAB0 IAB0 Ectopic0 Multiple0 Live Births0 Social History Tobacco Use Smoking status: Every Day Packs/day: 1.00 Years: 42.00 Additional pack years: 0.00 Total pack years: 42.00 Types: Cigarettes Last attempt to quit: 08/25/2023 Years since quittin.4 Passive exposure: Current Smokeless tobacco: Never Tobacco comments: 2cigs/day Vaping Use Vaping Use: Never used Substance Use Topics Alcohol use: Yes Comment: social Drug use: Not Currently COMPLETE REVIEW OF SYSTEMS: GENERAL: Negative for weight loss, fevers, chills, or night sweats. HEENT: Negative for sudden vision or hearing changes. NECK: Negative for masses in the neck. RESPIRATORY: +Cough, +shortness of breath. CARDIAC: Negative for chest pain, palpitations, murmurs, or syncopal episodes. GI: Negative for nausea, vomiting, diarrhea, constipation, blood per rectum, or melena. : Negative for dysuria, hematuria, urgency, frequency or incontinence. MUSCULOSKELETAL: She reports arm pain (cording) since surgery. Negative for limitations in movement, pain, or swelling. NEURO: Negative for dizziness, headache, weakness or numbness. HEMATOLOGIC: Negative for bleeding or easy bruising. SKIN: Negative for rashes or other skin changes. PHYSICAL EXAM: VS: Wt 83.1 kg (183 lb 3.2 oz) LMP 05/25/2016 BMI 31.45 kg/m KPS: 80 General Appearance: Alert and oriented. No acute distress. HEENT: NCAT. Sclera anicteric. EOMI. Remainder of exam deferred for discussion ASSESSMENT AND PLAN: 53 year old female with NSCLC (ISIDORO, PD-L1+ 99%) of the REILLY, metastatic to brain, managed with carboplatin/pemetrexed/pembrolizu mab and GKRS 07/28/23. 2. IDC of the right breast, UOQ (10:00 position), [id number], pT1cN0(sn) cM0, Stage IA, s/p: Right partial mastectomy/SLNB 01/06/24 [IDC, Gr I, 1.8 cm, margins-, extended margins-, 0/2 SLN, LVI-; ER+(100%)/OH+(100%)/HER2-] Mrs. Segura has early stage right breast cancer with favorable disease characteristics. In light of her metastatic NSCLC, adjuvant breast radiation has a low probability of benefit and we would not want to complicate receipt of live-prolonging systemic therapy for her NSCLC. She will continue follow-up for her breast cancer in the breast center. I will see her as needed. She will discuss the role of endocrine therapy with Dr. Jiang. I spent 20 minutes in the visit in counseling / coordination of care. Signed by: Zeb Vale MD cc: Martine Marrufo ([facility]) [address] [facility] [address] [place] [id number] MD Joleen Araiza MD Diane Harper, CNP documented in this encounter [facility] 02-03-2024 Telephone encounter Note Please assist patient with occupational therapy appointment as per consult placed by Dr Juarez [facility] Work Phone: 02-03-2024 Miscellaneous Notes Please assist patient with occupational therapy appointment as per consult placed by Dr Juarez Consult placed Love Juarez MD Patient calling with concern of what looks like a cord that comes out in my right arm when stretching and is tender. It goes from the axilla to her elbow and has been doing the exercises but it isnt helping. Surgery was 01/05- Rt halina lump with snbx Patient is requesting a consult to OT in [place] as she is not able to drive and relies on family. documented in this encounter [facility] 02-02-2024 Telephone encounter Note Consult placed Love Juarez MD [facility] 02-02-2024 Telephone encounter Note Called patient. Introduced self by name and title. Informed Lashell that appointments have been scheduled. She will have a CT on 02/17 and lab, office visit, and treatment on 02/20/2024. Advised Lashell to check MyChart for confirmation of her appts. States she will and had no other questions or concerns. VANDANA Jay-ED, RN Specialty Vehicle Body Builder - Lung Team [facility] Work Phone: 02-02-2024 Miscellaneous Notes Called patient. Introduced self by name and title. Informed Lashell that appointments have been scheduled. She will have a CT on 02/17 and lab, office visit, and treatment on 02/20/2024. Advised Lashell to check MyChart for confirmation of her appts. States she will and had no other questions or concerns. VANDANA Jay-ED, RN Specialty Vehicle Body Builder - Lung Team [facility] documented in this encounter [facility] 02-02-2024 Telephone encounter Note Patient calling with concern of what looks like a cord that comes out in my right arm when stretching and is tender. It goes from the axilla to her elbow and has been doing the exercises but it isnt helping. Surgery was 01/05- Rt halina lump with snbx Patient is requesting a consult to OT in [place] as she is not able to drive and relies on family. [facility] 01-30-2024 Telephone encounter Note EMERGENCY ROOM CALL BACK Today's date: January 30, 2024 Patient identified by name and date of . YES Primary Cancer Diagnosis: Stage SUE NSCLC Reason for Emergency Room Visit: Hgb = 5.6 Time of day presented to Emergency Room 2:22 pm If Fri-Friday during business hours: N/A Patient with any new symptom issues: No Psychosocial Risk Factors: None FOLLOW UP Patient reminded of her follow-up appointment with [place] provider, N/A on : Next Vehicle Body Builder outreach with patient scheduled? N/A. PATIENT EDUCATION/REINFORCEMENT Patient verbalizes understanding of when to seek Medical Attention? N/A Patient verbalizes understanding of after hours and weekend phone number? N/A Patient verbalizes understanding of next outreach appointment? N/A Did not speak with patient. She was sent to ED d/t low Hgb - 5.9. Rechecked in ED, stable. Returned to the infusion area and received her treatment. VANDANA Jay-ED, RN Specialty Vehicle Body Builder - Lung Team [facility] Work Phone: 01-30-2024 Miscellaneous Notes EMERGENCY ROOM CALL BACK Today's date: January 30, 2024 Patient identified by name and date of . YES Primary Cancer Diagnosis: Stage SUE NSCLC Reason for Emergency Room Visit: Hgb = 5.6 Time of day presented to Emergency Room 2:22 pm If Fri-Friday during business hours: N/A Patient with any new symptom issues: No Psychosocial Risk Factors: None FOLLOW UP Patient reminded of her follow-up appointment with [place] provider, N/A on : Next Vehicle Body Builder outreach with patient scheduled? N/A. PATIENT EDUCATION/REINFORCEMENT Patient verbalizes understanding of when to seek Medical Attention? N/A Patient verbalizes understanding of after hours and weekend phone number? N/A Patient verbalizes understanding of next outreach appointment? N/A Did not speak with patient. She was sent to ED d/t low Hgb - 5.9. Rechecked in ED, stable. Returned to the infusion area and received her treatment. VANDANA Jay-ED, RN Specialty Vehicle Body Builder - Lung Team [facility] documented in this encounter [facility] 01-29-2024 Telephone encounter Note Answered page to lab. Informed by Nae Hernandez, Critical Lab Value, Hgb = 5.6. Michele Payan CNP (seen pt today in clinic) and Dr. Jiang. Addendum @ 2:43 pm: Received call from Dr. Jiang. States he also received critical value and messaged Litzy Payan CNP who see pt today. Dr. Jiang will discuss this with Carla regarding possible blood transfusion or repeat CBCD. VANDANA Jay-ED, RN Specialty Vehicle Body Builder - Lung Team [facility] Work Phone: 01-29-2024 Miscellaneous Notes Answered page to lab. Informed by Nae Hernandez, Critical Lab Value, Hgb = 5.6. Michele Payan CNP (seen pt today in clinic) and Dr. Jiang. Addendum @ 2:43 pm: Received call from Dr. Jiang. States he also received critical value and messaged Litzy Payan CNP who see pt today. Dr. Jiang will discuss this with Carla regarding possible blood transfusion or repeat CBCD. VANDANA Jay-ED, RN Specialty Vehicle Body Builder - Lung [facility] documented in this encounter [facility] 01-29-2024 Nurse Note Additional intake questions: Has the patient had fever, nausea, vomiting, diarrhea, constipation, fatigue for > 1 week? No Does the patient have a decreased appetite? No Does patient want to see a Wind Farm Operations Manager? No (yes to any of above refer patient to schedulers for dietitian appointment) ) Does patient have any new or increased numbness or tingling of extremities? Yes, hx of Is patient interested in fertility information? No Does patient need any prescription refills? No Does patient have an advanced directive in place? No, [facility] 01-29-2024 Nurse Note Additional intake questions: Has the patient had fever, nausea, vomiting, diarrhea, constipation, fatigue for > 1 week? No Does the patient have a decreased appetite? No Does patient want to see a Wind Farm Operations Manager? No (yes to any of above refer patient to schedulers for dietitian appointment) ) Does patient have any new or increased numbness or tingling of extremities? Yes, hx of Is patient interested in fertility information? No Does patient need any prescription refills? No Does patient have an advanced directive in place? No, documented in this encounter [facility] 01-29-2024 History of Present illness Narrative ONCOLOGY PROGRESS NOTE ATTENDING PHYSICIAN: Joleen Jiang MD DOS: January 29, 2024 SUBJECTIVE Chief Complaint: Lashell Segura is a 53 year old female here for continued management of metastatic adenocarcinoma of the lung HPI: Oncology History: The following has been copied and pasted from progress note of Joleen Jiang MD from 11/26/23: ASSESSMENT AND PLAN: 53 y/o female with [id number] stage SUE lung adenocarcinoma with brain met s/p GKRS. PD-L1 99% and molecular data revealed KRAS G12C mutation. #Met lung adenocarcinoma Received 4 cycles of wziuk-nux-woy since 08/10. Significant side effects fatigue and neuropathy led to holding 2nd cycle for one week and decreased dose by 20%. Feeling better today; labs OK; CT suggesting response. will proceed with maintenance regular dose. Provided compazine to alternate with zofran. Imodium given for potential diarrhea. RV in 3 weeks. OK to hold treatment for breast CA surgery. Can consider single agent IO in the future given high PD-L1 status. If she progresses on treatment, will explore clinical trials for her KRAS G12C mutation. #Brain Mets - s/p GKRS. Repeat MRI in September showing decreased lesion. #Breast nodule - Seen on CT chest, slight FDG avid; 11/11 US biopsy and clip placement. Invasive ductal carcinoma ER+/OH+; referred for surgery. Would like to follow up with local Breast med onc. Ok to hold chemo for breast CA surgery. Interval History: -Lumpectomy R breast performed 01/05 without incident -Feels lightheaded with position changes -Has activity intolerance -No CP or heart palpitations -No melena or hematochezia ROS: Negative except as noted in interval history Medications: OLANZapine (ZYPREXA) 5 mg tablet^Take 1 tablet by mouth daily at bedtime. Start on the day of chemotherapy and take for 5 night.^Disp: 30 tablet^Rfl: 1 lacosamide (VIMPAT) 150 mg tab^Take 1 tablet by mouth two times a day for 180 days. Do not start before January 02, 2024.^Disp: 180 tablet^Rfl: 1 ondansetron (ZOFRAN) 8 mg tablet^Take 1 tablet by mouth every 8 hours as needed for nausea/vomiting.^Disp: 30 tablet^Rfl: 3 famotidine (PEPCID) 20 mg tablet^Take 1 tablet by mouth two times a day.^Disp: 40 tablet^Rfl: 0 folic acid 1 mg tablet^Take 1 tablet by mouth once daily.^Disp: 30 tablet^Rfl: 5 loperamide (IMODIUM A-D) 2 mg cap(s)^Take 1 capsule by mouth four times a day as needed.^Disp: 30 capsule^Rfl: 0 prochlorperazine (COMPAZINE) 10 mg tablet^Take 1 tablet by mouth every 4 hours as needed.^Disp: 30 tablet^Rfl: 1 midazolam (NAYZILAM) 5 mg/spray (0.1 mL) nasal spray^Use 1 Morrow in the nose as needed for seizures lasting longer than 5 minutes for up to 180 days. May repeat dose in alternate nostril after 10 minutes based on response and tolerability.^Disp: 4 Each^Rfl: 0 pyridoxine, vitamin B6, (VITAMIN B6) 100 mg tablet^Take 1 tablet by mouth once daily.^Disp: 90 tablet^Rfl: [address] (PROTONIX) 40 mg tablet^Take 1 tablet by mouth daily at 6 am.^Disp: 30 tablet^Rfl: 0 acetaminophen (TYLENOL) 325 mg tablet^2 tablets by ORAL/FEEDING TUBE route every 4 hours as needed for pain.^Disp: ^Rfl: atorvastatin (LIPITOR) 40 mg tablet^Take 40 mg by mouth once daily.^Disp: ^Rfl: DULoxetine (CYMBALTA) 60 mg capsule^Take 60 mg by mouth once daily.^Disp: ^Rfl: lacosamide (VIMPAT) 100 mg tab^Take 1 tablet by mouth two times a day for 7 days, THEN 1.5 tablets two times a day for 21 days.^Disp: 80 tablet^Rfl: 0 levETIRAcetam (KEPPRA) 750 mg tablet^2 tablets by ORAL/FEEDING TUBE route two times a day.^Disp: 360 tablet^Rfl: 1 Allergies: ALLERGIES Allergen Reactions Eggs [Egg] Hives Latex Hives Penicillins Hives Problem List: ACTIVE PROBLEM LIST Neoplasm of Lung - 08/04/2023 Lung Mass - 07/21/2023 Breast Nodule - 07/21/2023 Tobacco Abuse - 07/21/2023 Vasogenic Brain Edema (Hcc) - 07/21/2023 At Risk for Seizures - 07/21/2023 Seizure (Hcc) - 07/21/2023 Metastasis to Brain (Hcc) - 07/20/2023 Past Surgical History: PAST SURGICAL HISTORY Procedure Laterality Date SECTION HX KNEE SURGERY HX Right meniscus x2 REVISE MEDIAN N/CARPAL TUNNEL SURG Bilateral OBJECTIVE ECO- Fully active, able to carry on all pre-disease performance w/o restriction. BP 120/82 Pulse 105 Temp 97.7 Resp 20 Wt 179 lb 10.8 oz (81.5kg) SpO2 97% LMP 05/25/2016 Body surface area is 1.92 meters squared. Physical Exam: General appearance: Well-developed, well-nourished, NAD Skin: No rash, jaundice, ecchymoses, or petechiae Head: Normocephalic, atraumatic Eyes: Sclerae anicteric, PERRL, EOMI Oropharynx: MMMI Neck: Midline, supple Lungs: Breathing comfortably CV: No edema, cyanosis, or clubbing Musculoskeletal: Full ROM grossly intact Neurological: A&O x 3. No tremor. Gait normal Psych: Mood and affect appropriate Labs: WBC (k/uL) Date Value 01/29/2024 4.96 RBC (m/uL) Date Value 01/29/2024 1.68 (L) Hemoglobin (g/dL) Date Value 01/29/2024 5.6 (LL) Hematocrit (%) Date Value 01/29/2024 18.0 (L) MCV (fL) Date Value 01/29/2024 107.1 (H) MCH (pg) Date Value 01/29/2024 33.3 MCHC (g/dL) Date Value 01/29/2024 31.1 RDW-CV (%) Date Value 01/29/2024 12.6 Platelet Count (k/uL) Date Value 01/29/2024 101 (L) MPV (fL) Date Value 01/29/2024 8.9 (L) Neutrophils % (%) Date Value 01/29/2024 68.0 Lymphocytes % (%) Date Value 01/29/2024 29.0 Monocytes % (%) Date Value 01/29/2024 3.0 Eosinophils % (%) Date Value 07/20/2023 0.3 Basophils % (%) Date Value 01/29/2024 0.0 Abs Neut (Segs + Bands) (k/uL) Date Value 01/29/2024 3.37 Abs Johnston (k/uL) Date Value 01/29/2024 0.15 Abs Eosin (k/uL) Date Value 01/29/2024 0.00 Abs Baso (k/uL) Date Value 01/29/2024 0.00 Glucose (mg/dL) Date Value 01/29/2024 153 (H) BUN (mg/dL) Date Value 01/29/2024 15 Creatinine (mg/dL) Date Value 01/29/2024 0.73 Sodium (mmol/L) Date Value 01/29/2024 137 Potassium (mmol/L) Date Value 11/26/2023 3.8 Chloride (mmol/L) Date Value 01/29/2024 106 CO2 (mmol/L) Date Value 01/29/2024 21 (L) Protein, Total (g/dL) Date Value 01/29/2024 6.8 Albumin (g/dL) Date Value 01/29/2024 4.2 Calcium, Total (mg/dL) Date Value 01/29/2024 8.9 Alkaline Phosphatase (U/L) Date Value 01/29/2024 112 Bilirubin, Total (mg/dL) Date Value 01/29/2024 0.2 AST (U/L) Date Value 01/29/2024 55 (H) ALT (U/L) Date Value 01/29/2024 31 No results found for: CEA No results found for: [id number] TSH (mIU/L) Date Value 11/26/2023 0.749 ) ASSESSMENT/PLAN: C34.90 Adenocarcinoma of lung, stage 4, unspecified laterality (HCC) (primary encounter diagnosis) -Patient presents today to resume chemoimmunotherapy after > 1 month tx break for lumpectomy for breast cancer -Labs today initially showed hgb 5.6, and patient was sent to ED for PRBC transfusion. Upon redraw at ED, hgb resulted at 14.3, and patient returned to [facility]. Proceed with next cycle pem/pem today -Daily folic acid supplementation -IM B12 Q9 weeks -MRI brain 04/22 -Scheduling request placed for labs/OV/tx Q3 weeks x 4 C50.111, Z17.0 Malignant neoplasm of central portion of right breast in female, estrogen receptor positive (HCC) -S/p lumpectomy with negative margins -Consult with rad onc 02/02 I spent a total of 40 minutes on the date of the service which included preparing to see the patient, [id number] patient care, completing clinical documentation, communicating with other HCPs (not separately reported), and independently interpreting results (not separately reported). Carla Payan APRN.CRIS documented in this encounter [facility] 01-20-2024 Telephone encounter Note Called to pt to schedule a consult for Dr. Vale in Radiation Oncology. Pt vm box was not set up and could not leave message. Sent my chart message [facility] 01-20-2024 Miscellaneous Notes Called to pt to schedule a consult for Dr. Vale in Radiation Oncology. Pt vm box was not set up and could not leave message. Sent my chart message documented in this encounter [facility] 01-16-2024 Instructions Grace Pastor PA-C - 01/16/2024 10:38 AM EDT Dear Ms. Orourkelisbet, Thank you for coming to see us today and entrusting us with your breast care! It was so nice to see you today and we are happy to hear you are doing well! As we discussed at your appointment today: It is your responsibility to make your appointment on your way out today. Please stop at the scheduling desk to schedule your follow up with the surgical team in 6 months. If you need to change your appointment in the future - you may call [phone]. Incision care - if the glue is still on your incision in 1 week, apply a small amount of lotion to your incision site 10 minutes prior to showering, shower, then pat dry with a clean towel. Please do this daily until the glue is removed. Showering, supportive bra, restrictions and signs/symptoms of seroma and infection (painful, red, hot angry breast). If you develop signs and symptoms of infection or seroma, please do not hesitate to call and we are happy to see you. No immersing the breast in water (bath, hot tub, pool, jonas, ocean) for another 2-3 weeks. Please continue your arm exercises. If you develop concerns regarding your right arm such as swelling or range of motion issues, please let us know and we can arrange a consultation with breast occupational therapy. As part of your breast cancer care team, we recommend follow up consultation with our medical oncologist and radiation oncologist for further breast cancer assessment, recommendations. Dr Vale's office will be calling you. Breast health recommendations you can employ for your breast cancer journey include routine breast self awareness, clinical breast exams; annual mammography, minimal alcohol use, no tobacco use and 150min / week of aerobic exercise per week as your heart, lungs and joints allow. Wearing a well fitting (as in getting an updated professional fitting if it is has been some time) supportive bra is helpful for most women as well. If you develop new breast concerns, please make an appointment with your breast health team for further evaluation. We are happy to see you any time with any surgical breast questions or concerns. If you would like to compliment one of our caregivers you encountered today, you may do so at [email or web address]. Thank you for your time in recognizing those who cared for you during your journey with your breast health team. Grace Pastor PA-C Care team: Love Juarez MD, FACS SHY Joy PA-C RN, BSN, CN-BN Elizabeth Linares MA Contact numbers: [facility] Team Office Number: [phone] Nurse / clinical questions: [phone] Fax number: [phone] Night/weekends/holidays: [phone] and ask for the Breast Surgeon Core Fitter documented in this encounter [facility] 01-16-2024 History of Present illness Narrative BREAST CANCER POST OPERATIVE FOLLOW-UP SERVICE DATE: 01/16/2024 SURGERY DATE: 01/06/2024 POSTOPERATIVE VISIT #1 SUBJECTIVE: Lashell Segura is a 53 year old female s/p right lumpectomy, sentinel node biopsy. She is doing wonderfully with expected postoperative discomfort. OBJECTIVE: PHYSICAL EXAM: 01/16/24 1017 Temp: 36.6 C (97.9 F) TempSrc: Oral Weight: 81.6 kg (180 lb) The right 9o'c breast incision and axillary incision are both healing well. There is no evidence of infection. PATHOLOGY REPORT: FINAL DIAGNOSIS A. Lymph node, right #1, sentinel lymph node biopsy: - 1 lymph node, negative for carcinoma (0/1). B. Lymph node, right #2, sentinel lymph node biopsy: - 1 lymph node, negative for carcinoma (0/1). C. Breast, right, lumpectomy: - Invasive ductal carcinoma, [place] grade 1, approximately 18 mm in greatest dimension. - Ductal carcinoma in situ, grade II. - Invasive carcinoma greater than 2 mm from specimen edges. - Ductal carcinoma in situ less than 1 mm from superior specimen edge and greater than 2 mm from other specimen edges. - Biopsy clip, Halina supervisor asbestos removal, and biopsy site changes identified. D. Breast, right superior margin, excision: - Benign breast tissue. - Final inked margin negative for carcinoma. E. Breast, right anterior margin, excision: - Benign fibroadipose tissue. - Final inked margin negative for carcinoma. F. Breast, right inferior margin, excision: - Benign breast tissue. - Final inked margin negative for carcinoma. G. Breast, right posterior margin, excision: - Benign fibroadipose tissue. - Final inked margin negative for carcinoma. H. Breast, right lateral margin, excision: - Benign fibroadipose tissue. - Final inked margin negative for carcinoma. I. Breast, right medial margin, excision: - Atypical intraductal proliferation with apocrine features. - Final inked margin negative for carcinoma. GL 01/09/2024 Diagnosis Comment The invasive carcinoma is present in 6 consecutive slices of tissue. Each slice measures approximately 3 mm in thickness. The overall estimated continuous longest linear dimension of invasive carcinoma is therefore 18 mm. Block for additional Biomarkers/Molecular studies C2 Synoptic Report INVASIVE CARCINOMA OF THE BREAST: Resection 8th Edition - Protocol posted: 05/14/2023INVASIVE CARCINOMA OF THE BREAST: RESECTION - All Specimens SPECIMEN Procedure Excision (less than total mastectomy) Specimen Laterality Right TUMOR Histologic Type Invasive carcinoma of no special type (ductal) Histologic Grade ([place] Histologic Score) Glandular (Acinar) / Tubular Differentiation Score 2 Nuclear Pleomorphism Score 2 Mitotic Rate Score 1 Overall Grade Grade 1 (scores of 3, 4 or 5) Tumor Size Greatest dimension of largest invasive focus (Millimeters): 18 mm Ductal Carcinoma In Situ (DCIS) Present Lymphatic and / or Vascular Invasion Not identified Treatment Effect in the Breast No known presurgical therapy MARGINS Margin Status for Invasive Carcinoma All margins negative for invasive carcinoma Distance from Invasive Carcinoma to Closest Margin Greater than: 2 mm Margin Status for DCIS All margins negative for DCIS Distance from DCIS to Closest Margin Greater than: 2 mm REGIONAL LYMPH NODES Regional Lymph Node Status All regional lymph nodes negative for tumor Total Number of Lymph Nodes Examined (sentinel and non-sentinel) 2 Number of [place] Nodes Examined 2 pTNM CLASSIFICATION (AJCC 8th Edition) Reporting of pT, pN, and (when applicable) pM categories is based on information available to the pathologist at the time the report is issued. As per the AJCC (Chapter 1, 8th Ed.) it is the managing physician s responsibility to establish the final pathologic stage based upon all pertinent information, including but potentially not limited to this pathology report. pT Category pT1c pN Category pN0 N Suffix (sn) Breast Biomarker Testing Performed on Previous Biopsy Estrogen Receptor (ER) Status Positive (greater than 10% of cells demonstrate nuclear positivity) Percentage of Cells with Nuclear Positivity 100 % Breast Biomarker Testing Performed on Previous Biopsy Progesterone Receptor (PgR) Status Positive Percentage of Cells with Nuclear Positivity 100 % Breast Biomarker Testing Performed on Previous Biopsy HER2 (by immunohistochemistry) Negative (Score 1+) Testing Performed on . 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 All questions were answered to their satisfaction. Please make a follow up with the surgical team in 6 months. Discussed incision care, showering, supportive bra, restrictions and signs/symptoms of seroma and infection. No immersing the breast in water for another 2-3 weeks. Please continue your arm exercises. If you develop concerns regarding your right arm - please let us know and we can arrange a consultation with Breast OT. Multidisciplinary Team: Dr Jiang medical oncology as scheduled. Dr Vale, radiation oncology - consult placed and message sent. We are happy to see you any time with any surgical breast questions or concerns. All questions were answered to her satisfaction, she verbalizes understanding and is agreeable to the plan. Grace Pastor PA-C documented in this encounter [facility] 01-08-2024 History of Present illness Narrative Images from the original note were not included. [facility] NEURO-ONCOLOGY OUTPATIENT NOTE PURPOSE OF VISIT: Ongoing patient management CHIEF COMPLAINT : Brain met Subjective HISTORY OF PRESENT ILLNESS: Lashell Segura is a 53 year old year old left-handed female being seen for evaluation of previously diagnosed lung adenocarcinoma. 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 She is s/p GKRS by Dr. Connor Servin and Dr. Chandler Lieberman on 07/28/23 to 1) Left temporal. Primary cancer site : Lung Primary oncologist : Dr. Joleen Jiang Current systemic treatment : Pembrolizumab & Pemetrexed Current steroids : None Interval history: 01/08/24 Presents today with her daughter for follow-up with a new MRI brain scan for review. Reports some shakiness in both hands. She is following driving restrictions. Social History Tobacco Use Smoking status: Every Day Packs/day: 1.00 Years: 42.00 Additional pack years: 0.00 Total pack years: 42.00 Types: Cigarettes Last attempt to quit: 08/25/2023 Years since quittin.3 Passive exposure: Current Smokeless tobacco: Never Tobacco comments: 2cigs/day Vaping Use Vaping Use: Never used Substance Use Topics Alcohol use: Yes Comment: social Drug use: Not Currently PAST MEDICAL HISTORY Diagnosis Date Brain tumor (HCC) Epilepsy (HCC) Lung cancer (HCC) FAMILY HISTORY Problem Relation Age of Onset Systemic Lupus Erythematosus Mother Lung Cancer Mother COPD Father Diabetes Maternal Grandmother Diabetes Paternal Grandmother Colon Cancer Paternal Grandfather Anesthesia Problems No Family History Current Outpatient Medications Medication Sig OLANZapine (ZYPREXA) 5 mg tablet Take 1 tablet by mouth daily at bedtime. Start on the day of chemotherapy and take for 5 night. lacosamide (VIMPAT) 100 mg tab Take 1 tablet by mouth two times a day for 7 days, THEN 1.5 tablets two times a day for 21 days. lacosamide (VIMPAT) 150 mg tab Take 1 tablet by mouth two times a day for 180 days. Do not start before January 02, 2024. ondansetron (ZOFRAN) 8 mg tablet Take 1 tablet by mouth every 8 hours as needed for nausea/vomiting. famotidine (PEPCID) 20 mg tablet Take 1 tablet by mouth two times a day. loperamide (IMODIUM A-D) 2 mg cap(s) Take 1 capsule by mouth four times a day as needed. prochlorperazine (COMPAZINE) 10 mg tablet Take 1 tablet by mouth every 4 hours as needed. pyridoxine, vitamin B6, (VITAMIN B6) 100 mg tablet Take 1 tablet by mouth once daily. levETIRAcetam (KEPPRA) 750 mg tablet 2 tablets by ORAL/FEEDING TUBE route two times a day. pantoprazole DR (PROTONIX) 40 mg tablet Take 1 tablet by mouth daily at 6 am. acetaminophen (TYLENOL) 325 mg tablet 2 tablets by ORAL/FEEDING TUBE route every 4 hours as needed for pain. atorvastatin (LIPITOR) 40 mg tablet Take 40 mg by mouth once daily. DULoxetine (CYMBALTA) 60 mg capsule Take 60 mg by mouth once daily. HYDROcodone-acetaminophen (NORCO) 5-325 mg per tablet Take 1 tablet by mouth every 8 hours as needed for pain for up to 3 days. (Patient not taking: Reported on 01/08/2024) folic acid 1 mg tablet Take 1 tablet by mouth once daily. (Patient not taking: Reported on 01/06/2024) midazolam (NAYZILAM) 5 mg/spray (0.1 mL) nasal spray Use 1 [place]row in the nose as needed for seizures lasting longer than 5 minutes for up to 180 days. May repeat dose in alternate nostril after 10 minutes based on response and tolerability. (Patient not taking: Reported on 12/29/2023) No current facility-administered medications for this visit. REVIEW OF SYSTEMS : Neurological : + Complaint of headaches (uses Tylenol prn) No complaint of tinnitus No complaint of decreased hearing No complaint of diplopia + Complaints of blurred vision. No complaint of vision loss + Complaint of arm/leg numbness or tingling, hands/feet No problem with limb coordination or imbalance No complaint of syncope or LOC or falls + Complaint of tremor/shakiness, as above + Complaint of seizures, as above, [facility] (on Vimpat & Keppra) No complaints of memory changes, confusion, or disorientation. Objective PHYSICAL EXAMINATION: BP 117/78 Pulse 90 Ht 162.6 cm (5' 4) Wt 82 kg (180 lb 12.4 oz) LMP 05/25/2016 SpO2 99% BMI 31.03 kg/m General appearance: Well appearing, alert, in no acute distress, well-hydrated, well nourished. NEUROLOGICAL EXAM: Higher integrative functions: Oriented to person, place & time. Attention Span and Concentration: Good. Language: Good comprehension. Fund of Knowledge: Good. 2nd CN: Full visual adam. 3rd,4th,6th CN: Pupils (=), round, react to light, full extraocular movements. 5th CN: No decrease in facial sensation 7th CN: Facial muscles symmetric and strong. 8th CN: Hears finger rub well bilaterally. 9th CN: + Gag not tested 10th CN: Spontaneous palate movement, full and symmetric. 11th CN: Full strength in shoulder shrug. 12th CN: Tongue protrusion full and midline. Sensation: No decrease in sensation in upper or lower limbs to touch. Musculoskeletal: Able to stand and ambulate independently with steady gait. Motor: 5/5, R=L, UE=LE. Normal muscle tone without atrophy in all limbs. Coordination: Rapid alternating movements fast and smooth all limbs. IMAGING STUDIES: MRI BRAIN WO/W IVCON IMPRESSION: Near complete resolution of the enhancing lesion previously identified adjacent to the anterior aspect of the left superior temporal sulcus. No new lesions. No evidence of leptomeningeal disease. No perfusion abnormalities. Breakfast Cook: [place] Transcribe Date/Time: Jan 08 2024 1:48P Dictated by : SERGIO HANKINS MD This examination was interpreted and the report reviewed and electronically signed by: SERGIO HANKINS MD on Jan 08 2024 1:52PM EST * * *Final Report* * * DATE OF EXAM: Jan 08 2024 11:46AM [facility] 0295 - MRI BRAIN WO/W IVCON / PROCEDURE REASON: C79.31-Secondary malignant neoplasm of brain (HCC) * * * * Physician Interpretation * * * * EXAMINATION: MRI BRAIN WO/W IVCON CLINICAL HISTORY: Status post gamma knife for left temporal metastasis. TECHNIQUE: Routine brain MRI protocol without and with contrast including diffusion images. Perfusion with gadolinium. MQ: [id number] Contrast: 16 mL Dotarem IV COMPARISON: Stereotactic MRI brain from 07/28/2023. RESULT: Acute Change: There is no evidence of restricted diffusion to suggest an acute infarct. Hemorrhage: No evidence of prior parenchymal hemorrhage on the gradient echo images. Mass Lesion/ Mass Effect: Interval decrease in size of previously identified 7 x 4 mm left temporal enhancing lesion which on today's examination measures 1 x 2 mm (series 14 images 101-102). The previously identified moderate surrounding the neurogenic edema has resolved. No significant mass effect. No new enhancing lesions. No evidence of leptomeningeal disease. Perfusion CBV maps are normal. Chronic Change: The white matter is within normal limits of signal intensity for age. Parenchyma: No significant volume loss for age. The brain parenchyma is otherwise within normal limits of signal intensity and morphology. Ventricles: Normal caliber and morphology. Skull Base: Hypothalamic and pituitary region are grossly normal. Craniocervical junction is normal. No significant marrow replacement process. Vasculature: Major intracranial arterial structures, and dural venous sinuses show typical flow void, suggesting patency by spin echo criteria. Other: The visualized paranasal sinuses and mastoid air cells are clear. The orbits and extracranial soft tissues are unremarkable. KPS SCORE: 80 MEDICAL DECISION MAKING Assessment & Plan 1. 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 - New MRI brain scan today shows near complete resolution of previously treated lesion - No new intracranial metastatic lesions identified - Images reviewed with her today - Recommend follow up appointment with a new MRI brain scan in 3 months - Reviewed signs and symptoms that would prompt sooner evaluation - She has our contact information and was advised to call if new symptoms, questions or concerns arise prior to next scheduled visit. - All questions were answered. Portions of this note have been copied and updated appropriately. I spent a total of 35 minutes on the date of the service which included preparing to see the patient, [id number] patient care, completing clinical documentation, obtaining and/or reviewing separately obtained history, performing a medically appropriate examination, counseling and educating the patient/family/caregiver, ordering medications, tests, or procedures, communicating with other HCPs (not separately reported), independently interpreting results (not separately reported), communicating results to the patient/family/caregiver, and care coordination (not separately reported). Mariela Rivera APRN.SLOT MACHINE KEY PERSON cc: Connor Servin MD & Joleen Jiang MD & Mark Mcdonnell MD - Epic documented in this encounter [facility] 01-08-2024 Nurse Note Radiology Service Progress Note DATE OF SERVICE: January 08, 2024 TIME: 11:16 AM PATIENT WEIGHT: 178LBS PATIENT IDENTITY VERIFICATION COMPLETED USING TWO (2) STANDARD IDENTIFIERS: Name and Date of confirmed by patient verbally. FALL SCREENING: Has the patient had 2 falls in the last year or 1 fall with injury or currently using an Ambulatory Assistive Device (Walker, Cane, Wheelchair, Crutches, etc.)? No PATIENT GENDER DATA: Female. status: : No status: NO. ALLERGIES: Reviewed and unchanged CONTRAST ALLERGY: No EXAM: MRI - CONTRAST TYPE: GROUP II IV SITE: Ambulatory: A peripheral IV was started in the Left with a Angio cath: 22 gauge. IV SITE APPEARANCE: Clean,Dry and Intact SIGNATURE: Stiven Melchor RN PATIENT NAME: Lashell Segura DATE: January 08, 2024 TIME: 11:16 AM [facility] 01-08-2024 Nurse Note Radiology Service Progress Note DATE OF SERVICE: January 08, 2024 TIME: 11:16 AM PATIENT WEIGHT: 178LBS PATIENT IDENTITY VERIFICATION COMPLETED USING TWO (2) STANDARD IDENTIFIERS: Name and Date of confirmed by patient verbally. FALL SCREENING: Has the patient had 2 falls in the last year or 1 fall with injury or currently using an Ambulatory Assistive Device (Walker, Cane, Wheelchair, Crutches, etc.)? No PATIENT GENDER DATA: Female. status: : No status: NO. ALLERGIES: Reviewed and unchanged CONTRAST ALLERGY: No EXAM: MRI - CONTRAST TYPE: GROUP II IV SITE: Ambulatory: A peripheral IV was started in the Left with a Angio cath: 22 gauge. IV SITE APPEARANCE: Clean,Dry and Intact SIGNATURE: Stiven Melchor RN PATIENT NAME: Lashell Segura DATE: January 08, 2024 TIME: 11:16 AM documented in this encounter [facility] 01-08-2024 Miscellaneous Notes Radiology Service Progress Note PATIENT NAME: Lashell Segura DATE OF SERVICE: January 08, 2024 TIME: 11:19 AM PATIENT IDENTITY VERIFICATION COMPLETED USING TWO (2) IDENTIFIERS: Name and Date of confirmed by patient verbally and Name and Date of confirmed by identification band. FALL SCREENING: Has the patient had 2 falls in the last year or 1 fall with injury or currently using an Ambulatory Assistive Device (Walker, Cane, Wheelchair, Crutches, etc.)? No PATIENT GENDER DATA: Female. status: : No status: NO. PATIENT RELEVANT IMPLANT DATA REVIEWED: Yes PATIENT PRESENTS WITH AN IMPLANTABLE OR ATTACHED CARPENTER APPRENTICE: No RADIOLOGY DEPARTMENT: MR; Exam(s) Completed: Head: Routine Brain with Perfusion PERIPHERAL IV DATA: Site assessment: Clean,Dry and Intact, Site disposition Discontinued SIGNED BY: RT Faina(R) January 08, 2024 11:19 AM documented in this encounter [facility] 01-08-2024 Progress note Formatting of t his note might be different from the original. Radiology Service Progress Note PATIENT NAME: Lashell Segura DATE OF SERVICE: January 08, 2024 TIME: 11:19 AM PATIENT IDENTITY VERIFICATION COMPLETED USING TWO (2) IDENTIFIERS: Name and Date of confirmed by patient verbally and Name and Date of confirmed by identification band. FALL SCREENING: Has the patient had 2 falls in the last year or 1 fall with injury or currently using an Ambulatory Assistive Device (Walker, Cane, Wheelchair, Crutches, etc.)? No PATIENT GENDER DATA: Female. status: : No status: NO. PATIENT RELEVANT IMPLANT DATA REVIEWED: Yes PATIENT PRESENTS WITH AN IMPLANTABLE OR ATTACHED CARPENTER APPRENTICE: No RADIOLOGY DEPARTMENT: MR; Exam(s) Completed: Head: Routine Brain with Perfusion PERIPHERAL IV DATA: Site assessment: Clean,Dry and Intact, Site disposition Discontinued SIGNED BY: RT Faina(R) January 08, 2024 11:19 AM [facility] 01-06-2024 History of Present illness Narrative RADIOLOGY SERVICE PROGRESS NOTE SERVICE DATE: 01/06/2024 SERVICE TIME: 7:56 AM PATIENT IDENTITY VERIFICATION COMPLETED USING TWO (2) STANDARD IDENTIFIERS: Name and Date of confirmed by patient verbally FALL SCREENING: Has the patient had 2 falls in the last year or 1 fall with injury or currently using an Ambulatory Assistive Device (Walker, Cane, Wheelchair, Crutches, etc.)? No PATIENT GENDER DATA: .female : No ALLERGIES: Reviewed and unchanged MEDICATIONS REVIEWED: No PATIENT RELEVANT IMPLANT DATA REVIEWED: Not Applicable PATIENT PRESENTS WITH AN IMPLANTABLE OR ATTACHED CARPENTER APPRENTICE: No CREATININE: Creatinine Date Value Ref Range Status 11/26/2023 0.69 0.58 - 0.96 mg/dL Final 10/29/2023 0.73 0.58 - 0.96 mg/dL Final Creatinine (POCT) Date Value Ref Range Status 11/26/2023 0.80 0.7 - 1.4 mg/dL Final Estimated Glomerular Filtration Rate Date Value Ref Range Status 11/26/2023 103 >=60 mL/min/1.73m Final Comment: Estimated Glomerular Filtration Rate (eGFR) is calculated using the 2020 CKD-EPI creatinine equation. This equation utilizes serum creatinine, sex, and age as parameters. The creatinine assay has traceable calibration to isotope dilution-mass spectrometry. Refer to KDIGO guidelines for clinical interpretation. In patients with unstable renal function, e.g. those with acute kidney injury, the eGFR may not accurately reflect actual GFR. eGFR- Date Value Ref Range Status 01/18/2016 >60 Final P.O.C.T. RESULTS: N/A January 06, [address] PERFORMED: No IV SITE: NM only - not applicable, oral or physician administered agents given to patient POST EXAM PIV STATUS: Not applicable PROCEDURE TYPE: NM INJECT: lymph. 495 microcuries Tc99m SULFUR COLLOID . No other medications given.. ADMINISTRATION TIME: 0750 PATIENT DISCHARGED TO: Ambulatory patient, left [place] department area. A Diagnostic radioactive procedure has taken place, with no further precautions necessary other than routine body substance precautions. More information regarding radiation safety can be found using this link: [email or web address] SIGNATURE: RT Polina(R) PATIENT NAME: Lashell Segura DATE: January 06, 2024 TIME: 7:56 AM PAGER/CONTACT #: documented in this encounter [facility] 01-05-2024 Telephone encounter Note Patient was contacted via telephone today for pre-operative teaching for breast surgery. All questions were answered. Patient has arrival time states understanding of and is in agreement with the procedure listed below AMBULATORY PATIENT EDUCATION NOTE DIAGNOSIS: right breast cancer EDUCATION TOPIC: PROCEDURE / SURGERY: Pre Procedure Teaching: right halina supervisor asbestos removal lump, with sentinel node biopsy READINESS TO LEARN COGNITIVE ABILITY: Alert and oriented MOTIVATION TO LEARN: Eager and interested FAMILY SUPPORT: present INSTRUCTION PROVIDED TO: Patient PATIENT LEARNS BEST BY: Individual Instruction Written Instruction- Hand-outs Verbal Instruction Demonstration FACTORS AFFECTING LEARNING: None,asking questions PHYSICAL LIMITATIONS AFFECTING LEARNING: None TEACHING POINTS: What to expect before surgery, the day of surgery, after surgery and upon discharge to home. Activity with attention to post operative range of motion exercises, deep breathing and walking. Nutrition and hydration Pain control Wound care Lymphedema precautions LEARNING RESPONSE METHOD OF INSTRUCTION: Individual instruction Written instruction- handouts Verbal instruction PATIENT / FAMILY RESPONSE: Verbalizes understanding of all teaching points and information received today Patient will receive the [employer] Lymphedema booklet after surgery if necessary. FOLLOW-UP PLAN: Post-op as scheduled Patient instructed to call with any further issues [facility] Work Phone: 01-05-2024 Miscellaneous Notes Patient was contacted via telephone today for pre-operative teaching for breast surgery. All questions were answered. Patient has arrival time states understanding of and is in agreement with the procedure listed below AMBULATORY PATIENT EDUCATION NOTE DIAGNOSIS: right breast cancer EDUCATION TOPIC: PROCEDURE / SURGERY: Pre Procedure Teaching: right halina supervisor asbestos removal lump, with sentinel node biopsy READINESS TO LEARN COGNITIVE ABILITY: Alert and oriented MOTIVATION TO LEARN: Eager and interested FAMILY SUPPORT: present INSTRUCTION PROVIDED TO: Patient PATIENT LEARNS BEST BY: Individual Instruction Written Instruction- Hand-outs Verbal Instruction Demonstration FACTORS AFFECTING LEARNING: None,asking questions PHYSICAL LIMITATIONS AFFECTING LEARNING: None TEACHING POINTS: What to expect before surgery, the day of surgery, after surgery and upon discharge to home. Activity with attention to post operative range of motion exercises, deep breathing and walking. Nutrition and hydration Pain control Wound care Lymphedema precautions LEARNING RESPONSE METHOD OF INSTRUCTION: Individual instruction Written instruction- handouts Verbal instruction PATIENT / FAMILY RESPONSE: Verbalizes understanding of all teaching points and information received today Patient will receive the [employer] Lymphedema booklet after surgery if necessary. FOLLOW-UP PLAN: Post-op as scheduled Patient instructed to call with any further issues Attempted to reach patient by telephone for pre-op education but message states that she has a voicemail box that is not set up yet. documented in this encounter [facility] 01-05-2024 Telephone encounter Note Attempted to reach patient by telephone for pre-op education but message states that she has a voicemail box that is not set up yet. [facility] 12-31-2023 Telephone encounter Note Ngoc Manley saw this mutual patient in [facility] on 12/28. Lashell Segura is scheduled for mastectomy with Dr. Juarez on 01/05. CXR was done below, lungs diminished on exam, denies any cough or worsening SOB or fever. IMPRESSION: Hazy and patchy opacities in the left lung, pulmonary infiltrates versus atelectasis. I know she had a CT chest done just a month ago, some similar readings. I am assuming it is just related to her malignancy or chronic for her, but wanted to let you know thank you. Thank you, Saba Cox MSN, [facility] [place]-SLOT MACHINE KEY PERSON [facility] 12-31-2023 Miscellaneous Notes Ngoc Manley saw this mutual patient in [facility] on 12/28. Lashell Segura is scheduled for mastectomy with Dr. Juarez on 01/05. CXR was done below, lungs diminished on exam, denies any cough or worsening SOB or fever. IMPRESSION: Hazy and patchy opacities in the left lung, pulmonary infiltrates versus atelectasis. I know she had a CT chest done just a month ago, some similar readings. I am assuming it is just related to her malignancy or chronic for her, but wanted to let you know thank you. Thank you, Saba Cox MSN, HOME CARE [employer]-SLOT MACHINE KEY PERSON [facility] documented in this encounter [facility] 12-29-2023 History of Present illness Narrative Radiology Service Progress Note PATIENT NAME: Lashell Segura DATE OF SERVICE: December 29, 2023 TIME: 12:47 PM PATIENT IDENTITY VERIFICATION COMPLETED USING TWO (2) IDENTIFIERS: Name and Date of confirmed by patient verbally. FALL SCREENING: Has the patient had 2 falls in the last year or 1 fall with injury or currently using an Ambulatory Assistive Device (Walker, Cane, Wheelchair, Crutches, etc.)? No PATIENT GENDER DATA: Female. status: : No status: NO. PATIENT RELEVANT IMPLANT DATA REVIEWED: Not Applicable PATIENT PRESENTS WITH AN IMPLANTABLE OR ATTACHED CARPENTER APPRENTICE: No RADIOLOGY DEPARTMENT: General X-ray: Exam(s) Completed: Chest X-Ray PERIPHERAL IV DATA: Not applicable SIGNED BY: RT Maci(Sherif) December 29, 2023 12:47 PM documented in this encounter [facility] 12-29-2023 History and physical note Images from the original note were not included. HISTORY AND PHYSICAL EXAMINATION SERVICE DATE: 12/29/2023 SERVICE TIME: 12:39 PM PRIMARY CARE PHYSICIAN: Martine Marrufo APRN.CNP Assessment Patient has the following medical conditions which may affect hellen-operative course: Seizure (HCC) Assessment: follows with neurology Compliant on rx. Reports last seizure occurred in June when brain mets and cancer was found. Vasogenic brain edema (HCC) Assessment: noted in prior scans, metastasis. No shunts or interventions done. Follows neurology. MRI 09/26/23: Impression IMPRESSION: Interval decrease in size of left temporal metastatic lesion and associated vasogenic edema since 07/28/2023 and 07/20/2023. No evidence of neovascularity. No new lesions are identified. Tobacco abuse Assessment: Smokes 2cigs/day. Advised cessation. No smoking DOS. Neoplasm of lung Assessment: dx in June, following hem/onc. CT chest done 11/25, below. Noted to have a partial lung collapse. Symptoms are stable, chronic mora, some pain with deep inspiration. CXR today. IMPRESSION: 1. Treated malignancy within the inferior LEFT upper lobe as well as lingula demonstrates minimal interval decrease in size with reestablishment of patency of the previously stenotic/occluded lingular bronchus and its segmental/subsegmental branches. Findings compatible with favorable treatment response. Stable adjacent pleural thickening with no osseous destruction. 2. Mildly enlarged RIGHT hilar lymph node, confluent opacity in the LEFT perihilar region and additional subcentimeter sized mediastinal lymph nodes are unchanged. 3. Interval biopsy of RIGHT breast nodule, pathology consistent with malignancy. 4. Stable scattered solid, part solid and groundglass attenuation nodules, likely lesions along the spectrum of adenocarcinoma. [place] Activity Status Index: METS: Walk a block or two on level ground (2.75 METs) DASI Score: 2.75 Patient denies any chest pain or undue shortness of breath with the above physical activity. Clinical Frailty Scale: 3. Well, with treated comorbid disease STOP-Bang Score: Snores loudly Often feels tired, fatigued, or sleepy during the daytime Patient over 50 years old Has not been observed to stop breathing or choking/gasping during sleep Denies having high blood pressure BMI less than or equal to 35 kg/m^2 Does not have a large neck Non-male patient STOP-Bang Score: 3 ANESTHESIA FINDINGS: Intubation History: No history of difficult intubation. No abnormal airway history Significant Anesthesia Considerations: none Airway History: No history of difficult airway No abnormal airway history I - PHYSICAL EVALUATION AIRWAY Patient intubated: No. Tracheostomy tube not present Mallampati: III. TM distance: >3 FB. Neck ROM: full ROM without neurological symptoms. Mouth opening: adequate. Short neck: no. Thick neck: no Microretrognathia/Micronagthia/Re cessed Chin: No DENTAL Dental findings: teeth intact. II - ANESTHESIA PLAN Anesthetic plan additional comments: *[facility] - anesthesia choice. Beta Rojelio Monitoring Plan Post Procedure Analgesic Plan Prepared for Surgery: optimally prepared for surgery, pending [see comment]. Labs reviewed, EKG reviewed Pending CXR CONSULTS: Patient does not require consults for optimization at this time Planned Anesthetic: anesthesia choice The Following Tests/Procedures Have Been Initiated: Orders Placed This Encounter XR CHEST 2V FRONTAL/LAT Standing Status: Future Number of Occurrences: 1 Standing Expiration Date: 01/28/2025 REASON FOR VISIT: Lashell Segura is a 53 year old female who is scheduled for Procedure(s): MASTECTOMY PARTIAL (Right) EXCISION BREAST LESION IDENTIFIED BY PREOPERATIVE PLACEMENT RADIOLOGICAL MARKER, OPEN, SINGLE LESION (Right) BIOPSY NODE AXILLARY (Right) INTRAOPERATIVE ID OF SENTINEL LYMPH NODE(S) INCL'D INJECTION OF NON-RAD DYE WHEN PERFORMED (Right) at the request of Love Barrera MD for consultation. My final recommendation will be communicated back to the requesting physician by way of shared medical record or letter. Subjective The patient has the following: ACTIVE PROBLEM LIST Metastasis to Brain (Hcc) Lung Mass Breast Nodule Tobacco Abuse Vasogenic Brain Edema (Hcc) At Risk for Seizures Seizure (Hcc) Neoplasm of Lung COVID-19 Immunization Status Overdue - Covid-19 Vaccine (3 - Pfizer risk series) Overdue since 09/18/2021 08/21/2021 Imm Admin: COVID-19 original vaccine, age 12+ yr, monovalent (PFIZER-BIONTECH - PURPLE TOP) 07/11/2021 Imm Admin: COVID-19 original vaccine, age 12+ yr, monovalent (PFIZER-BIONTECH - PURPLE TOP) CHIEF COMPLAINT: pre op HPI: Patient is a 53 year old female presenting with a dx of breast cancer. Denies breast lump, breast asymmetry, or other changes to the breast. Mammogram done, then biopsy revealed invasive ductal carcinoma. She has a hx NSCLC. Was also found to have mets to the brain as well. REVIEW OF SYSTEMS: General: No weight loss, malaise or fevers. 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 Negative for: headaches, impaired sensorium, TIA and strokes. Respiratory: Positive for: dyspnea. Negative for: asthma, COPD, current cough, home oxygen, orthopnea, tobacco use, URI < 2 weeks and obstructive sleep apnea. Cardiovascular: Negative for: abdominal aortic aneurysm, AICD/PPM, angina, anticoagulation therapy, arrhythmia, atrial fibrillation, CAD, chest pain, CHF, congenital heart defect, DVT/PE, hyperlipidemia, hypertension, recent IA, murmur/valvular heart disease, PTCA, PVD, open heart surgery and valve surgery. GI: Negative for: abdominal pain, GERD, GI bleed <30 days, hepatitis, liver disease, nausea and vomiting. : Negative for: on dialysis, dysuria, frequent urination, hematuria, renal failure and urinary tract infection. TECHNICAL SERVICES ANALYST: Post menopausal Endocrine: Negative for: diabetes mellitus, hyperthyroidism and hypothyroidism. Hematology: Negative for: anemia, bruises/bleeds easily, factor V Leiden, hemophilia, thrombocytopenia, von Willebrand disease, transfusion of at least 4 units within 72 hours prior to surgery and chronic anti-coagulation/platelet meds. Oncology: See HPI. Psych: Positive for: anxiety and depression. Musculoskeletal: Negative for joint pain or swelling, back pain or muscle pain. Skin: Negative for lesions, rash and itching. PAST MEDICAL HISTORY Diagnosis Date Brain tumor (HCC) Epilepsy (HCC) Lung cancer (HCC) PAST SURGICAL HISTORY Procedure Laterality Date SECTION HX KNEE SURGERY HX Right meniscus x2 REVISE MEDIAN N/CARPAL TUNNEL SURG Bilateral FAMILY HISTORY Problem Relation Age of Onset Systemic Lupus Erythematosus Mother Lung Cancer Mother COPD Father Diabetes Maternal Grandmother Diabetes Paternal Grandmother Colon Cancer Paternal Grandfather Anesthesia Problems No Family History Social History Tobacco Use Smoking status: Every Day Packs/day: 1.00 Years: 42.00 Additional pack years: 0.00 Total pack years: 42.00 Types: Cigarettes Last attempt to quit: 08/25/2023 Years since quittin.3 Passive exposure: Current Smokeless tobacco: Never Tobacco comments: 2cigs/day Vaping Use Vaping Use: Never used Substance Use Topics Alcohol use: Yes Comment: social Drug use: Not Currently Prior to Admission medications as of 12/29/23 1218 Medication Sig Last Dose Taking OLANZapine (ZYPREXA) 5 mg tablet Take 1 tablet by mouth daily at bedtime. Start on the day of chemotherapy and take for 5 night. Taking Yes lacosamide (VIMPAT) 100 mg tab Take 1 tablet by mouth two times a day for 7 days, THEN 1.5 tablets two times a day for 21 days. Taking Yes lacosamide (VIMPAT) 150 mg tab Take 1 tablet by mouth two times a day for 180 days. Do not start before January 02, 2024. Taking Yes ondansetron (ZOFRAN) 8 mg tablet Take 1 tablet by mouth every 8 hours as needed for nausea/vomiting. Taking Yes famotidine (PEPCID) 20 mg tablet Take 1 tablet by mouth two times a day. Taking Yes folic acid 1 mg tablet Take 1 tablet by mouth once daily. Taking Yes loperamide (IMODIUM A-D) 2 mg cap(s) Take 1 capsule by mouth four times a day as needed. Taking Yes prochlorperazine (COMPAZINE) 10 mg tablet Take 1 tablet by mouth every 4 hours as needed. Taking Yes pyridoxine, vitamin B6, (VITAMIN B6) 100 mg tablet Take 1 tablet by mouth once daily. Taking Yes levETIRAcetam (KEPPRA) 750 mg tablet 2 tablets by ORAL/FEEDING TUBE route two times a day. Taking Yes pantoprazole DR (PROTONIX) 40 mg tablet Take 1 tablet by mouth daily at 6 am. Taking Yes acetaminophen (TYLENOL) 325 mg tablet 2 tablets by ORAL/FEEDING TUBE route every 4 hours as needed for pain. Taking Yes atorvastatin (LIPITOR) 40 mg tablet Take 40 mg by mouth once daily. Taking Yes DULoxetine (CYMBALTA) 60 mg capsule Take 60 mg by mouth once daily. Taking Yes midazolam (NAYZILAM) 5 mg/spray (0.1 mL) nasal spray Use 1 [place] in the nose as needed for seizures lasting longer than 5 minutes for up to 180 days. May repeat dose in alternate nostril after 10 minutes based on response and tolerability. Patient not taking: Reported on 12/29/2023 Not Taking No medication comments found. ALLERGIES Allergen Reactions Eggs [Egg] Hives Latex Hives Penicillins Hives Objective PHYSICAL EXAM: General: alert and oriented and healthy appearance. Pertinent negatives noted - not distressed. Skin: normal color, no rash or lesions. HEENT: EOM intact, pupils equal round and pupils reactive to light. Pertinent negatives noted - no carotid bruit. Cardiovascular: regular rate and rhythm, normal S1 and S2, no rub, murmurs, or gallop. Respiratory: normal breath sounds, no wheezes or crackles. No chest wall deformity or tenderness. Lungs diminished . Abdomen: bowel sounds present and soft. Pertinent negatives noted - not tender. Extremities: no deformity, no edema or tenderness, no joint swelling or clubbing. Neurological: normal cognition and motor skills. Gait normal. No weakness or sensory deficit. PAIN ASSESSMENT: Pain Pain Level: 1 Pain Location: Breast-Right Description: Other: See comment (tender to touch) Duration Units: Weeks Frequency: Intermittent VITALS: BP 130/87 Pulse 89 Temp (Src) 97.8 (Oral) Resp 16 Ht 5' 4 (1.63m) Wt 178 lb 9.2 oz (81.0kg) SpO2 98% LMP 05/25/2016 BMI 30.64 kg/(m^2). Diagnostic tests reviewed for today's visit: Lab Value Units Date High Low HB 11.5 g/dL 11/26/2023 15.5 11.5 HCT 33.5 % 11/26/2023 46.0 36.0 WBC 8.93 k/uL 11/26/2023 11.00 3.70 PLT 309 k/uL 11/26/2023 400 150 NA 138 mmol/L 11/26/2023 144 136 K 3.8 mmol/L 11/26/2023 5.1 3.7 GLUC 99 mg/dL 11/26/2023 99 74 BUN 11 mg/dL 11/26/2023 21 7 CREAT 0.69 mg/dL 11/26/2023 0.96 0.58 CREAT 0.80 mg/dL 11/26/2023 1.4 0.7 PTSEC 10.4 sec 07/20/2023 13.0 9.7 INR 1.0 no uni* 07/20/2023 1.3 0.9 APTT 27.1 sec 07/20/2023 32.4 23.0 ALT 49 U/L 11/26/2023 38 7 AST 42 U/L 11/26/2023 35 13 TBILI <0.2 mg/dL 11/26/2023 1.3 0.2 TSH 0.749 mIU/L 11/26/2023 4.200 0.270 Lab Value Units Date High Low HCGQT No results within date range. UHCG No results within date range. HCG, BODY* No results within date range. Lab Value Units Date High Low ABORHD No results within date range. ABSCREEN No results within date range. No results found for: HBA1C Recent Results (from the past 8760 hour(s)) ECG COMPLETE Collection Time: 07/19/23 10:06 PM Result Value Ventricular Rate 87 Atrial Rate 87 P-R Interval 160 QRS Duration 82 QT Interval 380 QTC Calculation (Bazett) 457 Calculated P [place] 77 Calculated R [place] -23 Calculated T [place] 13 Impression NORMAL SINUS RHYTHM POSSIBLE LEFT ATRIAL ENLARGEMENT SEPTAL INFARCT , AGE UNDETERMINED ABNORMAL ECG Confirmed by MD FRANSICO, KRISTY ([id number]), news editor WALLACE BUITRAGO ([id number]) on 07/20/2023 7:33:48 AM No results found for this or any previous visit (from the past 16062 hour(s)). Instructions Given to Patient: Instructions located in the after visit summary. Patient given verbal and written preop instructions and voices comprehension and compliance. SIGNATURE: Saba Cox APRN.CNP PATIENT NAME: Lashell Segura DATE: December 29, 2023 TIME: 12:05 PM PAGER/CONTACT #: [facility] 12-29-2023 History and physical note Images from the original note were not included. HISTORY AND PHYSICAL EXAMINATION SERVICE DATE: 12/29/2023 SERVICE TIME: 12:39 PM PRIMARY CARE PHYSICIAN: Martine Marrufo APRN.SLOT MACHINE KEY PERSON Assessment Patient has the following medical conditions which may affect hellen-operative course: Seizure (HCC) Assessment: follows with neurology Compliant on rx. Reports last seizure occurred in June when brain mets and cancer was found. Vasogenic brain edema (HCC) Assessment: noted in prior scans, metastasis. No shunts or interventions done. Follows neurology. MRI 09/26/23: Impression IMPRESSION: Interval decrease in size of left temporal metastatic lesion and associated vasogenic edema since 07/28/2023 and 07/20/2023. No evidence of neovascularity. No new lesions are identified. Tobacco abuse Assessment: Smokes 2cigs/day. Advised cessation. No smoking DOS. Neoplasm of lung Assessment: dx in June, following hem/onc. CT chest done 11/25, below. Noted to have a partial lung collapse. Symptoms are stable, chronic mora, some pain with deep inspiration. CXR today. IMPRESSION: 1. Treated malignancy within the inferior LEFT upper lobe as well as lingula demonstrates minimal interval decrease in size with reestablishment of patency of the previously stenotic/occluded lingular bronchus and its segmental/subsegmental branches. Findings compatible with favorable treatment response. Stable adjacent pleural thickening with no osseous destruction. 2. Mildly enlarged RIGHT hilar lymph node, confluent opacity in the LEFT perihilar region and additional subcentimeter sized mediastinal lymph nodes are unchanged. 3. Interval biopsy of RIGHT breast nodule, pathology consistent with malignancy. 4. Stable scattered solid, part solid and groundglass attenuation nodules, likely lesions along the spectrum of adenocarcinoma. [place] Activity Status Index: METS: Walk a block or two on level ground (2.75 METs) DASI Score: 2.75 Patient denies any chest pain or undue shortness of breath with the above physical activity. Clinical Frailty Scale: 3. Well, with treated comorbid disease STOP-Bang Score: Snores loudly Often feels tired, fatigued, or sleepy during the daytime Patient over 50 years old Has not been observed to stop breathing or choking/gasping during sleep Denies having high blood pressure BMI less than or equal to 35 kg/m^2 Does not have a large neck Non-male patient STOP-Bang Score: 3 ANESTHESIA FINDINGS: Intubation History: No history of difficult intubation. No abnormal airway history Significant Anesthesia Considerations: none Airway History: No history of difficult airway No abnormal airway history I - PHYSICAL EVALUATION AIRWAY Patient intubated: No. Tracheostomy tube not present Mallampati: III. TM distance: >3 FB. Neck ROM: full ROM without neurological symptoms. Mouth opening: adequate. Short neck: no. Thick neck: no Microretrognathia/Micronagthia/Re cessed Chin: No DENTAL Dental findings: teeth intact. II - ANESTHESIA PLAN Anesthetic plan additional comments: *PACC/TCI - anesthesia choice. Beta Rojelio Monitoring Plan Post Procedure Analgesic Plan Prepared for Surgery: optimally prepared for surgery, pending [see comment]. Labs reviewed, EKG reviewed Pending CXR CONSULTS: Patient does not require consults for optimization at this time Planned Anesthetic: anesthesia choice The Following Tests/Procedures Have Been Initiated: Orders Placed This Encounter XR CHEST 2V FRONTAL/LAT Standing Status: Future Number of Occurrences: 1 Standing Expiration Date: 01/28/2025 REASON FOR VISIT: Lashell Segura is a 53 year old female who is scheduled for Procedure(s): MASTECTOMY PARTIAL (Right) EXCISION BREAST LESION IDENTIFIED BY PREOPERATIVE PLACEMENT RADIOLOGICAL MARKER, OPEN, SINGLE LESION (Right) BIOPSY NODE AXILLARY (Right) INTRAOPERATIVE ID OF SENTINEL LYMPH NODE(S) INCL'D INJECTION OF NON-RAD DYE WHEN PERFORMED (Right) at the request of Love Barrera MD for consultation. My final recommendation will be communicated back to the requesting physician by way of shared medical record or letter. Subjective The patient has the following: ACTIVE PROBLEM LIST Metastasis to Brain (Hcc) Lung Mass Breast Nodule Tobacco Abuse Vasogenic Brain Edema (Hcc) At Risk for Seizures Seizure (Hcc) Neoplasm of Lung COVID-19 Immunization Status Overdue - Covid-19 Vaccine (3 - Pfizer risk series) Overdue since 09/18/2021 08/21/2021 Imm Admin: COVID-19 original vaccine, age 12+ yr, monovalent (PFIZER-BIONTECH - PURPLE TOP) 07/11/2021 Imm Admin: COVID-19 original vaccine, age 12+ yr, monovalent (PFIZER-BIONTECH - PURPLE TOP) CHIEF COMPLAINT: pre op HPI: Patient is a 53 year old female presenting with a dx of breast cancer. Denies breast lump, breast asymmetry, or other changes to the breast. Mammogram done, then biopsy revealed invasive ductal carcinoma. She has a hx NSCLC. Was also found to have mets to the brain as well. REVIEW OF SYSTEMS: General: No weight loss, malaise or fevers. 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 Negative for: headaches, impaired sensorium, TIA and strokes. Respiratory: Positive for: dyspnea. Negative for: asthma, COPD, current cough, home oxygen, orthopnea, tobacco use, URI < 2 weeks and obstructive sleep apnea. Cardiovascular: Negative for: abdominal aortic aneurysm, AICD/PPM, angina, anticoagulation therapy, arrhythmia, atrial fibrillation, CAD, chest pain, CHF, congenital heart defect, DVT/PE, hyperlipidemia, hypertension, recent IA, murmur/valvular heart disease, PTCA, PVD, open heart surgery and valve surgery. GI: Negative for: abdominal pain, GERD, GI bleed <30 days, hepatitis, liver disease, nausea and vomiting. : Negative for: on dialysis, dysuria, frequent urination, hematuria, renal failure and urinary tract infection. TECHNICAL SERVICES ANALYST: Post menopausal Endocrine: Negative for: diabetes mellitus, hyperthyroidism and hypothyroidism. Hematology: Negative for: anemia, bruises/bleeds easily, factor V Leiden, hemophilia, thrombocytopenia, von Willebrand disease, transfusion of at least 4 units within 72 hours prior to surgery and chronic anti-coagulation/platelet meds. Oncology: See HPI. Psych: Positive for: anxiety and depression. Musculoskeletal: Negative for joint pain or swelling, back pain or muscle pain. Skin: Negative for lesions, rash and itching. PAST MEDICAL HISTORY Diagnosis Date Brain tumor (HCC) Epilepsy (HCC) Lung cancer (HCC) PAST SURGICAL HISTORY Procedure Laterality Date SECTION HX KNEE SURGERY HX Right meniscus x2 REVISE MEDIAN N/CARPAL TUNNEL SURG Bilateral FAMILY HISTORY Problem Relation Age of Onset Systemic Lupus Erythematosus Mother Lung Cancer Mother COPD Father Diabetes Maternal Grandmother Diabetes Paternal Grandmother Colon Cancer Paternal Grandfather Anesthesia Problems No Family History Social History Tobacco Use Smoking status: Every Day Packs/day: 1.00 Years: 42.00 Additional pack years: 0.00 Total pack years: 42.00 Types: Cigarettes Last attempt to quit: 08/25/2023 Years since quittin.3 Passive exposure: Current Smokeless tobacco: Never Tobacco comments: 2cigs/day Vaping Use Vaping Use: Never used Substance Use Topics Alcohol use: Yes Comment: social Drug use: Not Currently Prior to Admission medications as of 12/29/23 1218 Medication Sig Last Dose Taking OLANZapine (ZYPREXA) 5 mg tablet Take 1 tablet by mouth daily at bedtime. Start on the day of chemotherapy and take for 5 night. Taking Yes lacosamide (VIMPAT) 100 mg tab Take 1 tablet by mouth two times a day for 7 days, THEN 1.5 tablets two times a day for 21 days. Taking Yes lacosamide (VIMPAT) 150 mg tab Take 1 tablet by mouth two times a day for 180 days. Do not start before January 02, 2024. Taking Yes ondansetron (ZOFRAN) 8 mg tablet Take 1 tablet by mouth every 8 hours as needed for nausea/vomiting. Taking Yes famotidine (PEPCID) 20 mg tablet Take 1 tablet by mouth two times a day. Taking Yes folic acid 1 mg tablet Take 1 tablet by mouth once daily. Taking Yes loperamide (IMODIUM A-D) 2 mg cap(s) Take 1 capsule by mouth four times a day as needed. Taking Yes prochlorperazine (COMPAZINE) 10 mg tablet Take 1 tablet by mouth every 4 hours as needed. Taking Yes pyridoxine, vitamin B6, (VITAMIN B6) 100 mg tablet Take 1 tablet by mouth once daily. Taking Yes levETIRAcetam (KEPPRA) 750 mg tablet 2 tablets by ORAL/FEEDING TUBE route two times a day. Taking Yes pantoprazole DR (PROTONIX) 40 mg tablet Take 1 tablet by mouth daily at 6 am. Taking Yes acetaminophen (TYLENOL) 325 mg tablet 2 tablets by ORAL/FEEDING TUBE route every 4 hours as needed for pain. Taking Yes atorvastatin (LIPITOR) 40 mg tablet Take 40 mg by mouth once daily. Taking Yes DULoxetine (CYMBALTA) 60 mg capsule Take 60 mg by mouth once daily. Taking Yes midazolam (NAYZILAM) 5 mg/spray (0.1 mL) nasal spray Use 1 [place] in the nose as needed for seizures lasting longer than 5 minutes for up to 180 days. May repeat dose in alternate nostril after 10 minutes based on response and tolerability. Patient not taking: Reported on 12/29/2023 Not Taking No medication comments found. ALLERGIES Allergen Reactions Eggs [Egg] Hives Latex Hives Penicillins Hives Objective PHYSICAL EXAM: General: alert and oriented and healthy appearance. Pertinent negatives noted - not distressed. Skin: normal color, no rash or lesions. HEENT: EOM intact, pupils equal round and pupils reactive to light. Pertinent negatives noted - no carotid bruit. Cardiovascular: regular rate and rhythm, normal S1 and S2, no rub, murmurs, or gallop. Respiratory: normal breath sounds, no wheezes or crackles. No chest wall deformity or tenderness. Lungs diminished . Abdomen: bowel sounds present and soft. Pertinent negatives noted - not tender. Extremities: no deformity, no edema or tenderness, no joint swelling or clubbing. Neurological: normal cognition and motor skills. Gait normal. No weakness or sensory deficit. PAIN ASSESSMENT: Pain Pain Level: 1 Pain Location: Breast-Right Description: Other: See comment (tender to touch) Duration Units: Weeks Frequency: Intermittent VITALS: BP 130/87 Pulse 89 Temp (Src) 97.8 (Oral) Resp 16 Ht 5' 4 (1.63m) Wt 178 lb 9.2 oz (81.0kg) SpO2 98% LMP 05/25/2016 BMI 30.64 kg/(m^2). Diagnostic tests reviewed for today's visit: Lab Value Units Date High Low HB 11.5 g/dL 11/26/2023 15.5 11.5 HCT 33.5 % 11/26/2023 46.0 36.0 WBC 8.93 k/uL 11/26/2023 11.00 3.70 PLT 309 k/uL 11/26/2023 400 150 NA 138 mmol/L 11/26/2023 144 136 K 3.8 mmol/L 11/26/2023 5.1 3.7 GLUC 99 mg/dL 11/26/2023 99 74 BUN 11 mg/dL 11/26/2023 21 7 CREAT 0.69 mg/dL 11/26/2023 0.96 0.58 CREAT 0.80 mg/dL 11/26/2023 1.4 0.7 PTSEC 10.4 sec 07/20/2023 13.0 9.7 INR 1.0 no uni* 07/20/2023 1.3 0.9 APTT 27.1 sec 07/20/2023 32.4 23.0 ALT 49 U/L 11/26/2023 38 7 AST 42 U/L 11/26/2023 35 13 TBILI <0.2 mg/dL 11/26/2023 1.3 0.2 TSH 0.749 mIU/L 11/26/2023 4.200 0.270 Lab Value Units Date High Low HCGQT No results within date range. UHCG No results within date range. HCG, BODY* No results within date range. Lab Value Units Date High Low ABORHD No results within date range. ABSCREEN No results within date range. No results found for: HBA1C Recent Results (from the past 8760 hour(s)) ECG COMPLETE Collection Time: 07/19/23 10:06 PM Result Value Ventricular Rate 87 Atrial Rate 87 P-R Interval 160 QRS Duration 82 QT Interval 380 QTC Calculation (Bazett) 457 Calculated P [place] 77 Calculated R [place] -23 Calculated T [place] 13 Impression NORMAL SINUS RHYTHM POSSIBLE LEFT ATRIAL ENLARGEMENT SEPTAL INFARCT , AGE UNDETERMINED ABNORMAL ECG Confirmed by MD FRANSICO, KRISTY ([id number]), news editor WALLACE BUITRAGO ([id number]) on 07/20/2023 7:33:48 AM No results found for this or any previous visit (from the past 18618 hour(s)). Instructions Given to Patient: Instructions located in the after visit summary. Patient given verbal and written preop instructions and voices comprehension and compliance. SIGNATURE: Saba Cox APRN.CNP PATIENT NAME: Lashell Segura DATE: December 29, 2023 TIME: 12:05 PM PAGER/CONTACT #: documented in this encounter [facility] 12-29-2023 Instructions Saba Cox APRN.CNP - 12/29/2023 12:05 PM EDT PATIENT PREOPERATIVE INSTRUCTIONS Love Juarez MD has scheduled you for your procedure at this surgery center: [facility]: [phone] --[id number] [place] [address]. Please read below carefully for your personalized instructions. Arrival Time for Surgery: - The Surgery Center or hospital where you are having surgery will call the afternoon before surgery (or Friday for Friday surgery) with a scheduled arrival time. - If you have not heard by 4 pm, please contact the surgery center above. Dietary Restrictions: - No solid food after midnight. - You may have 12 ounces of clear liquids (water, clear juices such as apple juice or gatorade, carbonated beverages, clear tea, black coffee, jello) until 2 hours before scheduled arrival at facility. - Do not drink any alcohol after midnight the night before your surgery. Medications: Unless instructed differently below, stay on all of your medications until your surgery. If you start any new medications after today's visit, please contact your surgeon. Pre-Surgery Med Instructions Medication Instructions OLANZapine (ZYPREXA) 5 mg tablet Take the day of surgery with a small sip of water lacosamide (VIMPAT) 100 mg tab Take the day of surgery with a small sip of water [START ON 01/02/2024] lacosamide (VIMPAT) 150 mg tab Take the day of surgery with a small sip of water ondansetron (ZOFRAN) 8 mg tablet Take the day of surgery with a small sip of water famotidine (PEPCID) 20 mg tablet Take the day of surgery with a small sip of water loperamide (IMODIUM A-D) 2 mg cap(s) Do not take the day of surgery prochlorperazine (COMPAZINE) 10 mg tablet If needed levETIRAcetam (KEPPRA) 750 mg tablet Take the day of surgery with a small sip of water pantoprazole DR (PROTONIX) 40 mg tablet Take the day of surgery with a small sip of water acetaminophen (TYLENOL) 325 mg tablet Take the day of surgery with a small sip of water atorvastatin (LIPITOR) 40 mg tablet Take the day of surgery with a small sip of water DULoxetine (CYMBALTA) 60 mg capsule Take the day of surgery with a small sip of water If you start any new medications after today's visit, please contact the surgeon's office. Blood Thinning Medications: - Stop NSAIDS (Ibuprofen, Advil, Aleve, Motrin, Celebrex, Mobic, etc.) 7 days before surgery, as directed by your surgeon. - Stop Aspirin 7 days before surgery, as directed by your surgeon. - Stop Vitamin E, ALL multi-vitamins, herbals and dietary supplements 14 days before surgery. - You may take Tylenol (Acetaminophen) or any of your pain medications that do not contain aspirin or NSAIDS as needed. Important Reminders: - If you use CPAP/BIPAP, bring the machine with you to the surgery center. - If you are prescribed inhalers for breathing, continue using them. -Please be sure to brush your teeth and you can use mouth wash or rinse your mouth if dry. - Candy, mints, and tobacco products are NOT permitted the morning of surgery. - Hearing aids, dentures and glasses may be worn the morning of surgery. - NO jewelry, body piercings, makeup, hairpins or contacts are to be worn the day of surgery. If you develop symptoms such as a fever, cold, or flu, or have other changes to your health within TWO DAYS of scheduled surgery or the morning of surgery, please contact the surgery center above. Personal Belongings: -Please have photo ID and insurance cards. -If you do not have a copy of advance directives on file with us, please bring a copy with you on the day of surgery. - Leave ALL valuables and money at home or with family members. For Outpatient Procedures: - YOU MUST HAVE A RESPONSIBLE BEHAVIORIST TAKE YOU HOME. A MEDICAL INSURANCE CLAIMS SPECIALIST OR MAIL OPENER CANNOT BE MADE A RESPONSIBLE BEHAVIORIST. - We recommend that a responsible person stays with you overnight to take care of you. - You cannot stay in a hotel alone after outpatient surgery. You will not be permitted to have your surgery, if you do not have someone to take care of you. Please be aware that emergency situations arise, which may delay or change your surgical time. If this happens, we will notify you as soon as possible and regret any inconvenience. If you already have an Advance Directive, please fax a copy to [phone] or email to for it to be added to your chart. If you do not have an Advance Directive, you can find the appropriate form and more information at [email or web address]. We recommend that you complete the Advance Directive form found on the website and bring it with you the day of your surgery. It can be witnessed and scanned into your chart that day. Saba Cox APRN.CRIS documented in this encounter [facility] 12-29-2023 Instructions Formatting of th is note might be different from the original. Verbal post procedure instructions were given to the patient. [facility] 12-29-2023 Miscellaneous Notes Verbal post procedure instructions were given to the patient. documented in this encounter [facility] 12-16-2023 Telephone encounter Note Called and unable to leave any message to patient. Surgery date 01/06/[address] Juarez. [facility] 12-16-2023 Miscellaneous Notes Called and unable to leave any message to patient. Surgery date 01/06/[address] Juarez. documented in this encounter [facility] 12-11-2023 Miscellaneous Notes Called pt to discuss message from Dr. Jiang sent yest and rec'd today. Called pt, no answer and no VM per message. MyChart sent, see encounter dated same. Love Juarez MD documented in this encounter [facility] 12-05-2023 Note HNO ID: [id number] Author: MARK MCDONNELL MD Service: ? Author Type: Physician Type: Progress Notes Filed: 12/05/2023 15:55 Note Text: [facility] Patient Name: Lashell Segura Date of : 1970 ESTABLISHED EPILEPSY CLINIC NOTE 12/05/2023 10:40 AM Reason for Visit: Follow Up and Epilepsy Clinical Summary: Ms. Segura is a 53 year old left-handed Write, eats, throws left handed. Strong family h/o left handedness female seen in [facility]. EPILEPSY CLASSIFICATION Left Temporal Lobe Epilepsy Seizures: 1. Aphasic Seizure -> Right Versive Seizure -> Generalized Tonic-Clonic Seizure Etiology: Tumor (Tumor - other) Metastatic brain tumor-lung NSCLC primary HISTORY OF PRESENT ILLNESS Handedness: left-handed Write, eats, throws left handed. Strong family h/o left handedness Age of onset: Seizure History and Evolution Symptoms started 07/19/2023. Per she had nonsensical speech, difficulty getting words out. She was confused. Initial concern was for stroke. She was taken to [place] ED where as per stroke code CT CTA was done which showed a left temporal mass lesion. While in the ED patient had a witnessed seizure-described as eyes deviated to the right, head turned to the right, generalized tonic-clonic seizure. She was given Ativan and loaded with Keppra. She was transferred to [facility] for further evaluation of brain mass. MRI brain confirmed left temporal lesion suspected to be metastatic associated with edema. CT chest abdominal pelvis showed compressed nodule and lung mass. She underwent bronchoscopy on 07/22/2023 with preliminary results showing non-small cell lung carcinoma. She was started on continuous EEG monitoring which showed PLEDs in the left hemisphere as well as NCS seizures from the left frontotemporal region. Keppra was increased to 1500 mg BID She underwent gamma knife radiation surgery on 07/28/2023 followed by steroid taper. She follows with oncology team (Dr. Joleen Jiang). She was started on chemotherapy with Pembrolizumab, Pemetrexed, Carboplatin. Interval Seizure History Since last visit in August 2023, she reports no new seizures. She was diagnosed with new breast cancer (biopsy done; path showed invasive ductal carcinoma) and is in the process of treatment. 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 Patient and family endorse low mood, anger and irritability with Keppra that has not improved with vitamin B6 trial. Total # of Current Anti-seizure Medications: Side Effects to Current Anti-seizure Medications: Seizure Frequency at First Visit: Longest Seizure-free Interval: Number of seizure types: 1 Hx of generalized tonic-clonic seizures: Yes Seizure-related driving accidents: No Driving: No Lives Alone: No CURRENT OUTPATIENT ANTISEIZURE MEDICATIONS (as of the start of the encounter) midazolam (NAYZILAM) 5 mg/spray (0.1 mL) nasal spray (Taking) Use 1 Morrow in the nose as needed for seizures lasting longer than 5 minutes for up to 180 days. May repeat dose in alternate nostril after 10 minutes based on response and tolerability. levETIRAcetam (KEPPRA) 750 mg tablet (Taking) 2 tablets by ORAL/FEEDING TUBE route two times a day. Prior Anti-seizure Therapies: Trial Adequacy: Max Daily Dose Achieved: Side Effects: Effectiveness: Comments: Levetiracetam Comorbidities: Minor: Brain Tumor Episode Description: SEIZURE TYPE 1: Aphasia-> right face clonic, right head deviation-> GTCS Description: Nonsensical speech for a few hours followed by right face, right head deviation and generalized tonic-clonic seizure. Loss of awareness: Duration: Frequency: Last occurred: SEIZURE TYPE 2: NCS Description: No clinical signs seizures arising from left frontotemporal region noted on EEG monitoring Loss of awareness: Duration: Frequency: Last occurred: Patient Entered Data: EPILEPSY SCORE No Data PHQ-9 SCORE - KHALIDA 2 SCORE - KHALIDA 7 SCORE - QOLIE-10 SCORE (0=worst; 100=best QoL - higher scores represent better function) - LSSS SCORE (0- no seizures 100- most severe possible seizures) - C-SSRS SCREEN - On average, how many hours of sleep do you get in a 24-hour period? - PROMIS Sleep Disturbance T-SCORE - Have you been diagnosed with Sleep Apnea? 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 [facility] 12-05-2023 History of Present illness Narrative [facility] Patient Name: Lashell Segura Date of : 1970 ESTABLISHED EPILEPSY CLINIC NOTE 12/05/2023 10:40 AM Reason for Visit: Follow Up and Epilepsy Clinical Summary: Ms. Segura is a 53 year old left-handed Write, eats, throws left handed. Strong family h/o left handedness female seen in [facility]. EPILEPSY CLASSIFICATION Left Temporal Lobe Epilepsy Seizures: 1. Aphasic Seizure -> Right Versive Seizure -> Generalized Tonic-Clonic Seizure Etiology: Tumor (Tumor - other) Metastatic brain tumor-lung NSCLC primary HISTORY OF PRESENT ILLNESS Handedness: left-handed Write, eats, throws left handed. Strong family h/o left handedness Age of onset: Seizure History and Evolution Symptoms started 07/19/2023. Per she had nonsensical speech, difficulty getting words out. She was confused. Initial concern was for stroke. She was taken to [place] ED where as per stroke code CT CTA was done which showed a left temporal mass lesion. While in the ED patient had a witnessed seizure-described as eyes deviated to the right, head turned to the right, generalized tonic-clonic seizure. She was given Ativan and loaded with Keppra. She was transferred to [facility] for further evaluation of brain mass. MRI brain confirmed left temporal lesion suspected to be metastatic associated with edema. CT chest abdominal pelvis showed compressed nodule and lung mass. She underwent bronchoscopy on 07/22/2023 with preliminary results showing non-small cell lung carcinoma. She was started on continuous EEG monitoring which showed PLEDs in the left hemisphere as well as NCS seizures from the left frontotemporal region. Keppra was increased to 1500 mg BID She underwent gamma knife radiation surgery on 07/28/2023 followed by steroid taper. She follows with oncology team (Dr. Joleen Jiang). She was started on chemotherapy with Pembrolizumab, Pemetrexed, Carboplatin. Interval Seizure History Since last visit in August 2023, she reports no new seizures. She was diagnosed with new breast cancer (biopsy done; path showed invasive ductal carcinoma) and is in the process of treatment. 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 Patient and family endorse low mood, anger and irritability with Keppra that has not improved with vitamin B6 trial. Total # of Current Anti-seizure Medications: Side Effects to Current Anti-seizure Medications: Seizure Frequency at First Visit: Longest Seizure-free Interval: Number of seizure types: 1 Hx of generalized tonic-clonic seizures: Yes Seizure-related driving accidents: No Driving: No Lives Alone: No CURRENT OUTPATIENT ANTISEIZURE MEDICATIONS (as of the start of the encounter) midazolam (NAYZILAM) 5 mg/spray (0.1 mL) nasal spray (Taking) Use 1 Morrow in the nose as needed for seizures lasting longer than 5 minutes for up to 180 days. May repeat dose in alternate nostril after 10 minutes based on response and tolerability. levETIRAcetam (KEPPRA) 750 mg tablet (Taking) 2 tablets by ORAL/FEEDING TUBE route two times a day. Prior Anti-seizure Therapies: Trial Adequacy: Max Daily Dose Achieved: Side Effects: Effectiveness: Comments: Levetiracetam Comorbidities: Minor: Brain Tumor Episode Description: SEIZURE TYPE 1: Aphasia-> right face clonic, right head deviation-> GTCS Description: Nonsensical speech for a few hours followed by right face, right head deviation and generalized tonic-clonic seizure. Loss of awareness: Duration: Frequency: Last occurred: SEIZURE TYPE 2: NCS Description: No clinical signs seizures arising from left frontotemporal region noted on EEG monitoring Loss of awareness: Duration: Frequency: Last occurred: Patient Entered Data: EPILEPSY SCORE No Data PHQ-9 SCORE - KHALIDA 2 SCORE - KHALIDA 7 SCORE - QOLIE-10 SCORE (0=worst; 100=best QoL - higher scores represent better function) - LSSS SCORE (0- no seizures 100- most severe possible seizures) - C-SSRS SCREEN - On average, how many hours of sleep do you get in a 24-hour period? - PROMIS Sleep Disturbance T-SCORE - Have you been diagnosed with Sleep Apnea? 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 Developmental Delay No Family history of seizures No Febrile Seizure Unanswered Complications No Stroke No Traumatic Brain Injury No Previous Epilepsy Evaluations Bedside EEG 07/21/2023 Interictal: Continuous Slow, Lateralized, Left Hemisphere PLEDs, Lateralized, Left hemisphere maximum left fronto-temporal region Ictal: EEG Seizure, Regional, Left Fronto-temporal No Clinical Signs Impression: This bedside EEG was recorded from 0430 on 07/21/2023 until 0732 on 07/22/2023 and is suggestive of an acute/subacute cortical dysfunction in the left hemisphere with epileptogenicity arising from the left fronto-temporal region. There was one EEG seizure arising from the left fronto-temporal region on 07/21/2023 at 2016 lasting 3 minutes with no apparent clinical signs. MRI brain 07/20/2023 1 cm enhancing ovoid mass within the left temporal lobe, with significant surrounding vasogenic edema, likely represents intraparenchymal metastasis. No associated restricted diffusion which would argue against abscess. No regional brain enhancement which would argue against a more generalized cerebritis. No evidence for acute ischemia or hemorrhage. Other caregivers: Primary Care Provider: Martine Marrufo APRN.[employer]OT MACHINE KEY PERSON Current Outpatient Medications Medication Sig OLANZapine (ZYPREXA) 5 mg tablet Take 1 tablet by mouth daily at bedtime. Start on the day of chemotherapy and take for 5 night. ondansetron (ZOFRAN) 8 mg tablet Take 1 tablet by mouth every 8 hours as needed for nausea/vomiting. famotidine (PEPCID) 20 mg tablet Take 1 tablet by mouth two times a day. folic acid 1 mg tablet Take 1 tablet by mouth once daily. loperamide (IMODIUM A-D) 2 mg cap(s) Take 1 capsule by mouth four times a day as needed. prochlorperazine (COMPAZINE) 10 mg tablet Take 1 tablet by mouth every 4 hours as needed. midazolam (NAYZILAM) 5 mg/spray (0.1 mL) nasal spray Use 1 Morrow in the nose as needed for seizures lasting longer than 5 minutes for up to 180 days. May repeat dose in alternate nostril after 10 minutes based on response and tolerability. pyridoxine, vitamin B6, (VITAMIN B6) 100 mg tablet Take 1 tablet by mouth once daily. levETIRAcetam (KEPPRA) 750 mg tablet 2 tablets by ORAL/FEEDING TUBE route two times a day. pantoprazole DR (PROTONIX) 40 mg tablet Take 1 tablet by mouth daily at 6 am. acetaminophen (TYLENOL) 325 mg tablet 2 tablets by ORAL/FEEDING TUBE route every 4 hours as needed for pain. atorvastatin (LIPITOR) 40 mg tablet Take 40 mg by mouth once daily. DULoxetine (CYMBALTA) 60 mg capsule Take 60 mg by mouth once daily. lacosamide (VIMPAT) 100 mg tab Take 1 tablet by mouth two times a day for 7 days, THEN 1.5 tablets two times a day for 21 days. [START ON 01/02/2024] lacosamide (VIMPAT) 150 mg tab Take 1 tablet by mouth two times a day for 180 days. Do not start before January 02, 2024. No current facility-administered medications for this visit. ALLERGIES Allergen Reactions Eggs [Egg] Hives Latex Hives Penicillins Hives Penicillins Unknown PAST MEDICAL HISTORY Diagnosis Date Brain tumor (HCC) Epilepsy (HCC) Lung cancer (HCC) PAST SURGICAL HISTORY Procedure Laterality Date SECTION HX KNEE SURGERY HX Right meniscus x2 REVISE MEDIAN N/CARPAL TUNNEL SURG Bilateral FAMILY HISTORY Problem Relation Age of Onset Systemic Lupus Erythematosus Mother Lung Cancer Mother COPD Father Diabetes Maternal Grandmother Diabetes Paternal Grandmother Colon Cancer Paternal Grandfather SOCIAL HISTORY: -Lives in [place], [place] -Patient lives alone? No -Vocation: -Education: -Cigarette, alcohol, substance use: -Functional status: independent in activities of daily living -Patient driving? No Review of Systems All other systems reviewed and are negative. VITAL SIGNS: BP 114/75 Pulse 98 Resp 16 LMP 05/25/2016 General Examination: She is accompanied By her daughter. General: Awake, alert, interactive, no acute distress, good nutritional status, normal development, well-kept Neurological Exam Mental Status Alert, fully oriented, attentive, with normal cognition, memory, speech and affect. Cranial Nerves Face symmetric. Hearing intact with conversational speech. Motor Examination and Coordination Motor examination with normal bulk. Normal coordination. No adventitious movements or significant tremor. Gait Casual gait normal. IMPRESSION: Ms. 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 She is status post gamma knife radiation surgery for her brain metastasis followed by steroid taper, currently off of steroids. She was started on [id number] xed by oncology team. She has no seizure recurrence, currently on Keppra 1500 mg BID with worsening mood and irritability despite vitamin B6 trial. 12/05/2023: Given mood and irritability side effects, we discussed switching Keppra to Vimpat. We discussed the possibility of breakthrough seizure during titration phase of medications. PLAN: Start Vimpat 100 mg twice daily for 1 week and then increase to 150 mg twice daily Start weaning off Keppra by 750 mg each week-written titration plan provided to the patient We discussed risk of seizure recurrence during medication titration. Seizure precautions including no driving until seizure-free for 6 months Future ASM options: Onfi, Xcopri, Depakote. Would consider retrial of Keppra if breakthrough seizures do not respond to other medications. Data reviewed as above including: MRI images, electronic medical record I discussed the risks, benefits and alternatives of the medical plan with the patient. Questions were answered. The patient agreed with the plan as discussed. FOLLOW-UP: Return in about 3 months (around 03/05/2024). I spent a total of 20 minutes on the date of the service which included: preparing to see the patient [id number] patient care completing clinical documentation obtaining and/or reviewing separately obtained history performing a medically appropriate examination ordering medications, tests, or procedures counseling and educating the patient/family/caregiver Mark Mcdonnell MD cc: Primary Care Physician: Martine Marrufo APRN.SLOT MACHINE KEY PERSON [address] [address] [facility] [address] Referring: Patient: Ms. Lashell Segura [address] [facility] [id number] documented in this encounter [facility] 12-05-2023 Instructions Mark Mcdonnell MD - 12/05/2023 11:09 AM EDT Summary of the things we discussed today: Week 1 Start Vimpat 100 mg in the morning and evening Continue Keppra 1500 mg in the morning and evening Week 2 Increase Vimpat to 150 mg in the morning and evening Continue Keppra 1500 mg in the morning and evening Week 3 Continue Vimpat 150 mg in the morning and evening Decrease Keppra to 750 mg in the morning and 1500 mg in the evening Week 4 Continue Vimpat 150 mg in the morning and evening Decrease Keppra to 750 mg in the morning and evening Week 5 Continue Vimpat 150 mg in the morning and evening Decrease Keppra to 750 mg in the evening. Stop the morning dose. Week 6 Continue Vimpat 150 mg in the morning and evening Stop Keppra. Refrain from driving for 6-8 weeks as we are changing medications. Seizure precautions - No driving in the [facility] until seizure free for 6 months. Please check with local state authorities for state specific driving regulations. - No operating heavy machines - No swimming without supervision or bathing in a bathtub due to risk of drowning in the event of a seizure. Patient may shower. - Avoid unsafe heights, including ladders, due to risk of fall-related injury in the event of a seizure. - Seizure precipitating factors discussed including not taking seizure medications as prescribed, stress, excessive caffeine intake, energy drinks, alcohol, sleep deprivation or any identifiable seizure precipitating factor. Mark Mcdonnell MD Associate Staff, Epilepsy [facility] December 05, 2023 Office phone: [phone] documented in this encounter [facility] 12-03-2023 Miscellaneous Notes Pt notified and expressed verbal understanding of message below. Will wait for someone to priti her back with update I did send chart to Dr. Jiang on day of our consult but I have not rec'd word back from him. Will reach out again. Love Juarez MD Patient calling asking for an update as to when she can have her surgery. She states her oncologist and Dr Juarez were to discuss when that would happen. I explained that Dr Juarez was out of the office last week but we will call her later this week with her next steps. Patient states her last chemo for her lung cancer was 11/25. documented in this encounter [facility] 11-28-2023 History of Present illness Narrative THORACIC ONCOLOGY FOLLOW UP VISIT (Elements copied from my note dated October 08, have been reviewed and updated where appropriate, and all reflect current assessment and medical decision making from today's encounter, November 26, 2023) DIAGNOSIS: [id number] stage SUE lung adenocarcinoma. Interval molecular data have demonstrated PD-L1 99%, KRAS G12C+, TREATMENT: GKRS to brain mets 07/28/23 [id number] 08/10/2023 ECOG PERFORMANCE STATUS: 1 INTERVAL HISTORY: Ms. Segura returns in follow up today after 4 cycle of chemoIO. Overall feeling well. Her generalized weakness and fatigue improved as well as numbenss and tingling in hands and feet. HPI: Lashell Segura is a 53 year old female with recent diagnosis of stage IV non-small cell lung cancer, adenocarcinoma. Patient originally presented to with sudden onset expressive aphasia to the emergency room and had a witnessed generalized tonic-clonic seizure. Chest x-ray showed a left upper lobe mass concerning for malignancy. CT had showed left upper lobe lesion with significant vasogenic edema. Patient was transferred to [facility] for neurosurgical evaluation. CT chest abdomen pelvis done on July 21 showed a 4.2 x 3.6 cm lingular mass associated with occlusion of lingular bronchus. There is some postobstructive atelectasis. There are numerous bilateral solid/nonsolid nodules with the largest being 1.6 x 1.1 cm in the right lower lobe. There is a large left hilar lymph node 11 mm as well as enlarged right hilar lymph node 12 mm. T11 compression fracture. Right breast 11 mm nodule. MRI brain shows a 1 cm left temporal lobe mass. Patient has bronchoscopy and endobronchial biopsy of the left upper lobe lesion was positive for adenocarcinoma PD-L1 99% ALK negative remaining molecular pathology is negative. Patient received gamma knife treatment on July 28, 24 [place] in 1 fraction,with no significant side effects REVIEW OF SYSTEMS GENERAL: No fevers, chills, or nightsweats HEENT: Negative for frequent or significant headaches HEMATOLOGY/LYMPHOLOGY Negative for prolonged bleeding, bruising easily, lumps or swollen Lymph nodes. PULMONARY: Negative for cough, hemoptysis, wheezing, COPD, dyspnea or shortness of breath CARDIOVASCULAR: Negative for leg swelling or palpitations. GI: Negative for N/V, diarrhea or constipation, abdominal discomfort, hematemesis, hematochezia or melena. MUSCULOSKELETAL: Negative for bone or joint pain or swelling, back pain or muscle pain. NEURO: No history of headaches, syncope, focal weakness or paralysis, seizures, numbness or tingling of hands or feet MEDICATIONS: folic acid 1 mg tablet Take 1 tablet by mouth once daily. OLANZapine (ZYPREXA) 5 mg tablet Take 1 tablet by mouth daily at bedtime. Start on the day of chemotherapy and take for 5 night. ondansetron (ZOFRAN) 8 mg tablet Take 1 tablet by mouth every 8 hours as needed for nausea/vomiting. loperamide (IMODIUM A-D) 2 mg cap(s) Take 1 capsule by mouth four times a day as needed. prochlorperazine (COMPAZINE) 10 mg tablet Take 1 tablet by mouth every 4 hours as needed. midazolam (NAYZILAM) 5 mg/spray (0.1 mL) nasal spray Use 1 Morrow in the nose as needed for seizures lasting longer than 5 minutes for up to 180 days. May repeat dose in alternate nostril after 10 minutes based on response and tolerability. pyridoxine, vitamin B6, (VITAMIN B6) 100 mg tablet Take 1 tablet by mouth once daily. levETIRAcetam (KEPPRA) 750 mg tablet 2 tablets by ORAL/FEEDING TUBE route two times a day. pantoprazole DR (PROTONIX) 40 mg tablet Take 1 tablet by mouth daily at 6 am. famotidine (PEPCID) 20 mg tablet Take 1 tablet by mouth two times a day. acetaminophen (TYLENOL) 325 mg tablet 2 tablets by ORAL/FEEDING TUBE route every 4 hours as needed for pain. atorvastatin (LIPITOR) 40 mg tablet Take 40 mg by mouth once daily. DULoxetine (CYMBALTA) 60 mg capsule Take 60 mg by mouth once daily. ALLERGIES: ALLERGIES Allergen Reactions Eggs [Egg] Hives Latex Hives Penicillins Hives Penicillins Unknown PHYSICAL EXAMINATION: Vitals: BP 127/80 Pulse 98 Temp (Src) 97.3 (Temporal) Resp 20 Wt 179 lb 14.3 oz (81.6kg) SpO2 98% LMP 05/25/2016 Body surface area is 1.92 meters squared. General: WD/WN woman in NAD. HEENT: Sclerae anicteric, conjunctiva non-injected. Wearing mask. No temporal wasting. Lungs: easy work of breathing. Symmetric chest movement Abdominal: No obvious ascites or organomegaly. Extremities: No digital clubbing, cyanosis, or edema. Skin: No rash, petechiae or purpura. Neurological: AOx3, mood and affect appropriate. Gait nml. LABORATORY VALUES: CBC: Recent Labs 11/26/23 1110 10/29/23 1255 10/08/23 1228 WBC 8.93 13.64* 11.09* HB 11.5 11.6 10.4* PLT 309 340 493* MCV 100.9* 100.0 98.7 BMP: Recent Labs 11/26/23 1110 11/26/23 1042 10/29/23 1255 10/08/23 1228 NA 138 -- 138 134* K 3.8 -- 3.9 3.7 CHLOR 102 -- 100 98 CO2 24 -- 25 25 ANION 12 -- 13 11 BUN 11 -- 12 12 CREAT 0.69 0.80 0.73 0.78 GLUC 99 -- 106* 201* CHEM: Recent Labs 11/26/23 1110 10/29/23 1255 10/08/23 1228 07/20/23 1423 07/20/23 0318 ALB 4.1 4.4 3.8* < > 4.6 TPROT 6.9 7.4 7.1 < > 7.1 CA 9.6 10.1 9.4 < > -- MG -- -- -- -- 2.1 < > = values in this interval not displayed. HEPATIC: Recent Labs 11/26/23 1110 10/29/23 1255 10/08/23 1228 AST 42* 76* 37* ALT 49* 107* 46* TBILI <0.2* 0.2 0.2 ALKPHOS 85 123 113 RADIOLOGY REVIEW: CT chest 11/25 IMPRESSION: 1. Treated malignancy within the inferior LEFT upper lobe as well as lingula demonstrates minimal interval decrease in size with reestablishment of patency of the previously stenotic/occluded lingular bronchus and its segmental/subsegmental branches. Findings compatible with favorable treatment response. Stable adjacent pleural thickening with no osseous destruction. 2. Mildly enlarged RIGHT hilar lymph node, confluent opacity in the LEFT perihilar region and additional subcentimeter sized mediastinal lymph nodes are unchanged. 3. Interval biopsy of RIGHT breast nodule, pathology consistent with malignancy. 4. Stable scattered solid, part solid and groundglass attenuation nodules, likely lesions along the spectrum of adenocarcinoma. ASSESSMENT AND PLAN: 53 y/o female with [id number] stage SUE lung adenocarcinoma with brain met s/p GKRS. PD-L1 99% and molecular data revealed KRAS G12C mutation. #Met lung adenocarcinoma Received 4 cycles of apaln-bol-eik since 08/10. Significant side effects fatigue and neuropathy led to holding 2nd cycle for one week and decreased dose by 20%. Feeling better today; labs OK; CT suggesting response. will proceed with maintenance regular dose. Provided compazine to alternate with zofran. Imodium given for potential diarrhea. RV in 3 weeks. OK to hold treatment for breast CA surgery. Can consider single agent IO in the future given high PD-L1 status. If she progresses on treatment, will explore clinical trials for her KRAS G12C mutation. #Brain Mets - s/p GKRS. Repeat MRI in September showing decreased lesion. #Breast nodule - Seen on CT chest, slight FDG avid; 11/11 US biopsy and clip placement. Invasive ductal carcinoma ER+/OH+; referred for surgery. Would like to follow up with local Breast med onc. Ok to hold chemo for breast CA surgery. Joleen Jiang documented in this encounter [facility] 11-26-2023 Nurse Note Additional intake questions: Has the patient had fever, nausea, vomiting, diarrhea, constipation, fatigue for > 1 week? Yes, fatigue and Provider Notified Does the patient have a decreased appetite? No Does patient want to see a Wind Farm Operations Manager? No (yes to any of above refer patient to schedulers for dietitian appointment) ) Does patient have any new or increased numbness or tingling of extremities? Yes, feet and hands Is patient interested in fertility information? No Does patient need any prescription refills? No Does patient have an advanced directive in place? No, Patient referred to [facility] documented in this encounter [facility] 11-26-2023 History of Present illness Narrative Radiology Service Progress Note DATE OF SERVICE: November 26, 2023 TIME: 10:35 AM PATIENT WEIGHT: 176LBS PATIENT IDENTITY VERIFICATION COMPLETED USING TWO (2) STANDARD IDENTIFIERS: Name and Date of confirmed by patient verbally and Name and Date of confirmed by identification band. FALL SCREENING: Has the patient had 2 falls in the last year or 1 fall with injury or currently using an Ambulatory Assistive Device (Walker, Cane, Wheelchair, Crutches, etc.)? No PATIENT GENDER DATA: Female. status: : No status: NO. ALLERGIES: Reviewed and unchanged CONTRAST ALLERGY: No EXAM: CT -CONTRAST INDUCED NEPHROPATHY RISK FACTORS: History of Kidney surgery, Kidney neoplasm, Liver disease, and/or any recent Nephrotoxic Chemotherapy or other Nephrotoxic medications CREATININE: Creatinine Date Value Ref Range Status 10/29/2023 0.73 0.58 - 0.96 mg/dL Final 10/08/2023 0.78 0.58 - 0.96 mg/dL Final Creatinine (POCT) Date Value Ref Range Status 11/26/2023 0.80 0.7 - 1.4 mg/dL Final eGFR (POCT) Date Value Ref Range Status 11/26/2023 >60 mL/min/1.73 m2 Final eGFR- Date Value Ref Range Status 01/18/2016 >60 Final P.O.C.T. RESULTS: POC done: Yes, See Lab Tab November 26, 2023 TREATMENT: No Hydration needed. IV SITE: Ambulatory: A peripheral IV was started in the Right forearm with a Angio cath: 22 gauge. and A Saline lock was inserted per protocol IV left in for CA-lab and treatment. IV SITE APPEARANCE: Clean,Dry and Intact SIGNATURE: Mirella Nava RN PATIENT NAME: Lashell Segura DATE: November 26, 2023 TIME: 10:35 AM Radiology Service Progress Note PATIENT NAME: Lashell Segura DATE OF SERVICE: November 26, 2023 TIME: 10:50 AM PATIENT IDENTITY VERIFICATION COMPLETED USING TWO (2) IDENTIFIERS: Name and Date of confirmed by patient verbally and Name and Date of confirmed by identification band. FALL SCREENING: Has the patient had 2 falls in the last year or 1 fall with injury or currently using an Ambulatory Assistive Device (Walker, Cane, Wheelchair, Crutches, etc.)? No PATIENT GENDER DATA: Female. status: : No status: NO. PATIENT RELEVANT IMPLANT DATA REVIEWED: Yes PATIENT PRESENTS WITH AN IMPLANTABLE OR ATTACHED CARPENTER APPRENTICE: No RADIOLOGY DEPARTMENT: CT; Exam(s) Completed: Chest PERIPHERAL IV DATA: Site assessment: Clean,Dry and Intact, Site disposition Left in for next appointment SIGNED BY: RT Soren(R) November 26, 2023 10:50 AM documented in this encounter [facility] 11-17-2023 Miscellaneous Notes Patient has a new diagnosis of breast cancer She has an appointment with a breast surgeon on Friday at the [place] location at 9:00 Patient is established with Dr Jiang for medical oncology and Dr Lieberman for radiation oncology. Can you please send to your schedulers for those appointments? Thank you documented in this encounter [facility] 11-12-2023 Miscellaneous Notes Patient was provided an At Home Instructions pamphlet which was verbally reviewed by [facility] documented in this encounter [facility] 10-29-2023 History of Present illness Narrative SOCIAL WORK FOLLOW UP NOTE: [facility] Date of service: 10/29/2023 Lashell Segura is being seen for a follow up social work visit. Today's visit includes: patient and [id number] TOPICS ADDRESSED: coping/support and social security disability SW received referral from nurse coordinator, Marta ZUNIGA, requesting SW support for this pt. This SW is covering for Dr. Deidre damico at this time. SW met with pt and pt's [id number] in-person during pt's infusion treatment. SW introduced self and role. Pt discussed the difficulty she experienced from the HR department of her employment due to never receiving mail that she was told was being sent to her that she needed to fill out and complete for medical leave. Pt shares that due to never being told or receiving the mail, she was terminated from her current position. Pt shares that she does not want to reapply for her position. SW discussed possibility of pt applying for social security disability. Pt shares that she is interested and would like to start that process sooner rather than later. SW educated pt regarding SSD and the ways to apply. SW sent pt a GVISP 1 message with this information as well. Pt denies any additional concerns at this time. Pt shares that she has great support at home from her spouse, 6 adult children, her [id number], and her 10 grandchildren. SW provided pt with contact card so that pt can reach out to SW when needed. SW will continue to provide ongoing assessment and support as needed. PLAN: Continue follow up as needed , Provide emotional support to patient/family, and Referral to community resource F/U APPOINTMENT: PRN Assigned SW listed in Care Team tab: EMILE Zhang documented in this encounter [facility] 10-29-2023 History of Present illness Narrative DIAGNOSIS: [id number] stage SUE lung adenocarcinoma. Interval molecular data have demonstrated PD-L1 99%, KRAS G12C+, TREATMENT: GKRS to brain mets 07/28/23 [id number] 08/10/2023 0- Fully active, able to carry on all pre-disease performance w/o restriction. Interval History: She comes into the clinic feeling well. Continues to have constipation for narcotics but is actively managing. Using the prednisone with some compazine has significantly improved her nausea. Denies feer, chills, SOB, cough. Did inform me that she was fired from her job and believes it to be related to her not being at work for her cancer treatments. She is also asking us to fill out a form for her insurance company. PAST MEDICAL HISTORY Diagnosis Date Brain tumor (HCC) Epilepsy (HCC) No past surgical history on file. Current Outpatient Medications on File Prior to Visit Medication Sig folic acid 1 mg tablet Take 1 tablet by mouth once daily. OLANZapine (ZYPREXA) 5 mg tablet Take 1 tablet by mouth daily at bedtime. Start on the day of chemotherapy and take for 5 night. ondansetron (ZOFRAN) 8 mg tablet Take 1 tablet by mouth every 8 hours as needed for nausea/vomiting. loperamide (IMODIUM A-D) 2 mg cap(s) Take 1 capsule by mouth four times a day as needed. prochlorperazine (COMPAZINE) 10 mg tablet Take 1 tablet by mouth every 4 hours as needed. midazolam (NAYZILAM) 5 mg/spray (0.1 mL) nasal spray Use 1 Morrow in the nose as needed for seizures lasting longer than 5 minutes for up to 180 days. May repeat dose in alternate nostril after 10 minutes based on response and tolerability. pyridoxine, vitamin B6, (VITAMIN B6) 100 mg tablet Take 1 tablet by mouth once daily. levETIRAcetam (KEPPRA) 750 mg tablet 2 tablets by ORAL/FEEDING TUBE route two times a day. pantoprazole DR (PROTONIX) 40 mg tablet Take 1 tablet by mouth daily at 6 am. famotidine (PEPCID) 20 mg tablet Take 1 tablet by mouth two times a day. acetaminophen (TYLENOL) 325 mg tablet 2 tablets by ORAL/FEEDING TUBE route every 4 hours as needed for pain. atorvastatin (LIPITOR) 40 mg tablet Take 40 mg by mouth once daily. DULoxetine (CYMBALTA) 60 mg capsule Take 60 mg by mouth once daily. No current facility-administered medications on file prior to visit. ALLERGIES Allergen Reactions Eggs [Egg] Hives Latex Hives Penicillins Hives Penicillins Unknown Social History Tobacco Use Smoking status: Every Day Packs/day: 1.00 Years: 42.00 Additional pack years: 0.00 Total pack years: 42.00 Types: Cigarettes Substance Use Topics Alcohol use: Yes Comment: Occassionally Drug use: Not Currently No family history on file. ROS: No fever, no chills, no night sweats, no decrease in appetite or weight loss. No chest pain, no cough, no hemoptysis. No abdominal pain, no nausea vomiting, no changes in bowel habits. No urinary symptoms. Physical Exam: BP 123/79 Pulse 114 Temp 36.6 C (97.9 F) (Temporal) Resp 20 Wt 80.2 kg (176 lb 12.9 oz) LMP 05/25/2016 SpO2 100% BMI 30.37 kg/m General appearance: Well appearing, alert, in no acute distress, well-hydrated, well nourished. Skin: Skin color, texture, turgor normal, no suspicious rashes or lesions Head: Normocephalic, no masses, lesions, tenderness or abnormalities Eyes: Anicteric sclera. Pupils are equally round and reactive to light. Extraocular movements are intact. Extremities: No deformities, edema, skin discoloration, clubbing or cyanosis. Good capillary refill. Neuro: Oriented X 3 Labs: Hemoglobin (g/dL) Date Value 10/29/2023 11.6 01/18/2016 14.6 Hematocrit (%) Date Value 10/29/2023 34.6 01/18/2016 41.1 WBC (k/uL) Date Value 10/29/2023 13.64 01/18/2016 10.06 Platelet Count (k/uL) Date Value 10/29/2023 340 01/18/2016 263 CMP: Glucose 106 10/29/2023 BUN 12 10/29/2023 Creatinine 0.73 10/29/2023 Sodium 138 10/29/2023 Potassium 3.9 10/29/2023 Chloride 100 10/29/2023 CO2 25 10/29/2023 Protein, Total 7.4 10/29/2023 Albumin 4.4 10/29/2023 Calcium 10.1 10/29/2023 Alkaline Phosphatase 123 10/29/2023 Bilirubin, Total 0.2 10/29/2023 AST 76 10/29/2023 ALT 107 10/29/2023 Assessment/Plan: 53 y/o female with [id number] stage SUE lung adenocarcinoma with brain met s/p GKRS. PD-L1 99% and molecular data revealed KRAS G12C mutation. Labs reviewed and acceptable for treatment. Liver enzymes did increase but she still meets treatment parameters. Will return to the clinic for her next infusion with restaging CT scans and a follow up with Dr. Jiang. She is scheduled to have a breast biopsy on the 11 of November. Jamel Pennington APRN.CRIS Portions of this encounter note have been copied from Dr. Joleen Jiang previous note dated, 10/08/2023, which has been updated where appropriate and all reflect current medical decision making from today, 10/29/2023. documented in this encounter [facility] 10-29-2023 Nurse Note Additional intake questions: Has the patient had fever, nausea, vomiting, diarrhea, constipation, fatigue for > 1 week? Yes, fatigue and Provider Notified Does the patient have a decreased appetite? No Does patient want to see a Wind Farm Operations Manager? No (yes to any of above refer patient to schedulers for dietitian appointment) ) Does patient have any new or increased numbness or tingling of extremities? Yes, HANDS AND FEET Is patient interested in fertility information? No Does patient need any prescription refills? YES, LIP NOTIFIED Does patient have an advanced directive in place? No, Patient referred to [facility] documented in this encounter [facility] 10-27-2023 History of Present illness Narrative Radiology Service Progress Note PATIENT NAME: Lashell Segura DATE OF SERVICE: October 27, 2023 TIME: 9:33 AM PATIENT IDENTITY VERIFICATION COMPLETED USING TWO (2) IDENTIFIERS: Name and Date of confirmed by patient verbally and Name and Date of confirmed by identification band. FALL SCREENING: Has the patient had 2 falls in the last year or 1 fall with injury or currently using an Ambulatory Assistive Device (Walker, Cane, Wheelchair, Crutches, etc.)? No PATIENT GENDER DATA: Female. status: : No status: NO. PATIENT RELEVANT IMPLANT DATA REVIEWED: Not Applicable PATIENT PRESENTS WITH AN IMPLANTABLE OR ATTACHED CARPENTER APPRENTICE: No RADIOLOGY DEPARTMENT: Ultrasound PERIPHERAL IV DATA: Not applicable SIGNED BY: JM Ricketts October 27, 2023 9:33 AM documented in this encounter [facility] 10-15-2023 History of Present illness Narrative THORACIC ONCOLOGY FOLLOW UP VISIT (Elements copied from my note dated September 17, have been reviewed and updated where appropriate, and all reflect current assessment and medical decision making from today's encounter, October 08, 2023) DIAGNOSIS: [id number] stage SUE lung adenocarcinoma. Interval molecular data have demonstrated PD-L1 99%, KRAS G12C+, TREATMENT: GKRS to brain mets 07/28/23 [id number] 08/10/2023 ECOG PERFORMANCE STATUS: 1 INTERVAL HISTORY: Ms. Segura returns in follow up today after two cycle of chemoIO. Overall feeling well. Her generalized weakness and fatigue improved as well as numbenss and tingling in hands and feet. HPI: Lashell Segura is a 53 year old female with recent diagnosis of stage IV non-small cell lung cancer, adenocarcinoma. Patient originally presented to with sudden onset expressive aphasia to the emergency room and had a witnessed generalized tonic-clonic seizure. Chest x-ray showed a left upper lobe mass concerning for malignancy. CT had showed left upper lobe lesion with significant vasogenic edema. Patient was transferred [facility] for [facility] evaluation. CT chest abdomen pelvis done on July 21 showed a 4.2 x 3.6 cm lingular mass associated with occlusion of lingular bronchus. There is some postobstructive atelectasis. There are numerous bilateral solid/nonsolid nodules with the largest being 1.6 x 1.1 cm in the right lower lobe. There is a large left hilar lymph node 11 mm as well as enlarged right hilar lymph node 12 mm. T11 compression fracture. Right breast 11 mm nodule. MRI brain shows a 1 cm left temporal lobe mass. Patient has bronchoscopy and endobronchial biopsy of the left upper lobe lesion was positive for adenocarcinoma PD-L1 99% ALK negative remaining molecular pathology is negative. Patient received gamma knife treatment on July 28, 24 Anton in 1 fraction,with no significant side effects REVIEW OF SYSTEMS REVIEW OF SYSTEMS GENERAL: No fevers, chills, or nightsweats HEENT: Negative for frequent or significant headaches HEMATOLOGY/LYMPHOLOGY Negative for prolonged bleeding, bruising easily, lumps or swollen Lymph nodes. PULMONARY: Negative for cough, hemoptysis, wheezing, COPD, dyspnea or shortness of breath CARDIOVASCULAR: Negative for leg swelling or palpitations. GI: Negative for N/V, diarrhea or constipation, abdominal discomfort, hematemesis, hematochezia or melena. MUSCULOSKELETAL: Negative for bone or joint pain or swelling, back pain or muscle pain. NEURO: No history of headaches, syncope, focal weakness or paralysis, seizures, numbness or tingling of hands or feet MEDICATIONS: loperamide (IMODIUM A-D) 2 mg cap(s) Take 1 capsule by mouth four times a day as needed. prochlorperazine (COMPAZINE) 10 mg tablet Take 1 tablet by mouth every 4 hours as needed. midazolam (NAYZILAM) 5 mg/spray (0.1 mL) nasal spray Use 1 Morrow in the nose as needed for seizures lasting longer than 5 minutes for up to 180 days. May repeat dose in alternate nostril after 10 minutes based on response and tolerability. pyridoxine, vitamin B6, (VITAMIN B6) 100 mg tablet Take 1 tablet by mouth once daily. levETIRAcetam (KEPPRA) 750 mg tablet 2 tablets by ORAL/FEEDING TUBE route two times a day. pantoprazole DR (PROTONIX) 40 mg tablet Take 1 tablet by mouth daily at 6 am. famotidine (PEPCID) 20 mg tablet Take 1 tablet by mouth two times a day. acetaminophen (TYLENOL) 325 mg tablet 2 tablets by ORAL/FEEDING TUBE route every 4 hours as needed for pain. atorvastatin (LIPITOR) 40 mg tablet Take 40 mg by mouth once daily. DULoxetine (CYMBALTA) 60 mg capsule Take 60 mg by mouth once daily. folic acid 1 mg tablet Take 1 tablet by mouth once daily. OLANZapine (ZYPREXA) 5 mg tablet Take 1 tablet by mouth daily at bedtime. Start on the day of chemotherapy and take for 5 night. ondansetron (ZOFRAN) 8 mg tablet Take 1 tablet by mouth every 8 hours as needed for nausea/vomiting. ALLERGIES: ALLERGIES Allergen Reactions Eggs [Egg] Hives Latex Hives Penicillins Hives Penicillins Unknown PHYSICAL EXAMINATION: Vitals: BP 119/78 Pulse 113 Temp (Src) 98.2 (Oral) Resp 20 Wt 175 lb 7.8 oz (79.6kg) SpO2 97% LMP 05/25/2016 Body surface area is 1.9 meters squared. General: WD/WN woman in NAD. HEENT: Sclerae anicteric, conjunctiva non-injected. Wearing mask. No temporal wasting. Lungs: easy work of breathing. Symmetric chest movement Abdominal: No obvious ascites or organomegaly. Extremities: No digital clubbing, cyanosis, or edema. Skin: No rash, petechiae or purpura. Neurological: AOx3, mood and affect appropriate. Gait nml. LABORATORY VALUES: CBC: Recent Labs 10/08/23 1228 09/16/23 1039 09/10/23 1344 WBC 11.09* 18.33* 23.10* HB 10.4* 9.3* 9.0* PLT 493* 558* 618* MCV 98.7 98.6 97.2 BMP: Recent Labs 10/08/23 1228 10/08/23 0857 09/16/23 1039 09/10/23 1344 NA 134* -- 137 141 K 3.7 -- 4.3 3.6* CHLOR 98 -- 103 103 CO2 25 -- 23 25 ANION 11 -- 11 13 BUN 12 -- 7 9 CREAT 0.78 0.70 0.76 0.62 GLUC 201* -- 121* 147* CHEM: Recent Labs 10/08/23 1228 09/16/23 1039 09/10/23 1344 07/20/23 1423 07/20/23 0318 ALB 3.8* 3.3* 2.7* < > 4.6 TPROT 7.1 7.4 7.2 < > 7.1 CA 9.4 9.3 9.2 < > -- MG -- -- -- -- 2.1 < > = values in this interval not displayed. HEPATIC: Recent Labs 10/08/23 1228 09/16/23 1039 09/10/23 1344 AST 37* 36* 43* ALT 46* 36 51* TBILI 0.2 <0.2* 0.2 ALKPHOS 113 125* 126* RADIOLOGY REVIEW: Left upper lobe lingular central obstructing mass with interval postobstructive consolidation/collapse of the lingula with abrupt cutoff of the lingular bronchus. Interval cavitation suggests posttreatment necrosis. Unchanged right hilar lymphadenopathy. Multiple unchanged subsolid nodules, presumably along AIS-adenocarcinoma spectrum. Centrilobular groundglass opacities favored to represent respiratory bronchiolitis. ASSESSMENT AND PLAN: 53 y/o female with [id number] stage SUE lung adenocarcinoma with brain met s/p GKRS. PD-L1 99% and molecular data revealed KRAS G12C mutation. #Met lung adenocarcinoma Received 2 cycles of vltad-qxr-mzh since 08/10. Significant side effects fatigue and neuropathy led to holding 2nd cycle for one week and decreased dose by 20%. Feeling better today; labs OK; CT suggesting response. will proceed with cycle 3. Will give steroids for several days and provided compazine to alternate with zofran.Imodium given for potential diarrhea. RV in 3 weeks. Can consider single agent IO in the future given high PD-L1 status. If she progresses on treatment, will explore clinical trials for her KRAS G12C mutation. #Brain Mets - s/p GKRS. Repeat MRI in September showing decreased lesion. #Breast nodule - Seen on CT chest, slight FDG avid, plans for mammogram. Appears shrinking on CT documented in this encounter [facility] 10-09-2023 Miscellaneous Notes ADA Forms updated and faxed to Melissa [employer]ol[employer] & ([phone]) with return confirmation of receipt. Informed patient forms were completed and faxed today via a GVISP 1 message. Jessie Scott, MSN-ED, RN Specialty Vehicle Body Builder - Lung Team [facility] documented in this encounter [facility] 10-08-2023 Nurse Note Additional intake questions: Has the patient had fever, nausea, vomiting, diarrhea, constipation, fatigue for > 1 week? Yes, fatigue Does the patient have a decreased appetite? No Does patient want to see a Wind Farm Operations Manager? No (yes to any of above refer patient to schedulers for dietitian appointment) ) Does patient have any new or increased numbness or tingling of extremities? Yes, hands and feet Is patient interested in fertility information? No Does patient need any prescription refills? No Does patient have an advanced directive in place? No, Patient referred to [facility] documented in this encounter [facility] 10-08-2023 History of Present illness Narrative Radiology Service Progress Note DATE OF SERVICE: October 08, 2023 TIME: 8:52 AM PATIENT WEIGHT: 170 LBS PATIENT IDENTITY VERIFICATION COMPLETED USING TWO (2) STANDARD IDENTIFIERS: Name and Date of confirmed by patient verbally and Name and Date of confirmed by identification band. FALL SCREENING: Has the patient had 2 falls in the last year or 1 fall with injury or currently using an Ambulatory Assistive Device (Walker, Cane, Wheelchair, Crutches, etc.)? No PATIENT GENDER DATA: Female. status: : No status: NO. ALLERGIES: Reviewed and unchanged CONTRAST ALLERGY: No EXAM: CT -CONTRAST INDUCED NEPHROPATHY RISK FACTORS: History of Kidney surgery, Kidney neoplasm, Liver disease, and/or any recent Nephrotoxic Chemotherapy or other Nephrotoxic medications CREATININE: Creatinine Date Value Ref Range Status 09/16/2023 0.76 0.58 - 0.96 mg/dL Final 09/10/2023 0.62 0.58 - 0.96 mg/dL Final Creatinine (POCT) Date Value Ref Range Status 10/08/2023 0.70 0.7 - 1.4 mg/dL Final eGFR (POCT) Date Value Ref Range Status 10/08/2023 >60 mL/min/1.73 m2 Final eGFR- Date Value Ref Range Status 01/18/2016 >60 Final P.O.C.T. RESULTS: POC done: Yes, See Lab Tab October 08, 2023 TREATMENT: N/A IV SITE: Ambulatory: A peripheral IV was started in the Right antecubital site with a Angio cath: 22 gauge. and A Saline lock was inserted per protocol IV SITE APPEARANCE: Clean,Dry and Intact SIGNATURE: Kimberly Nelson RN PATIENT NAME: Lashell Segura DATE: October 08, 2023 TIME: 8:52 AM Radiology Service Progress Note PATIENT NAME: Lashell Segura DATE OF SERVICE: October 08, 2023 TIME: 9:47 AM PATIENT IDENTITY VERIFICATION COMPLETED USING TWO (2) IDENTIFIERS: Name and Date of confirmed by patient verbally. FALL SCREENING: Has the patient had 2 falls in the last year or 1 fall with injury or currently using an Ambulatory Assistive Device (Walker, Cane, Wheelchair, Crutches, etc.)? No PATIENT GENDER DATA: Female. status: : No status: NO. PATIENT RELEVANT IMPLANT DATA REVIEWED: Yes PATIENT PRESENTS WITH AN IMPLANTABLE OR ATTACHED CARPENTER APPRENTICE: No RADIOLOGY DEPARTMENT: CT; Exam(s) Completed: Chest Abdomen Pelvis PERIPHERAL IV DATA: Site assessment: Clean,Dry and Intact, Site disposition Left in for next appointment SIGNED BY: Oralia Alexander October 08, 2023 9:47 AM documented in this encounter [facility] 10-07-2023 Miscellaneous Notes Fax sent with receipt of confirmation to [employer] with completed paperwork re: patient's medical condition. Marta Moore RN Specialty Vehicle Body Builder [facility] documented in this encounter [facility] 09-26-2023 Instructions Gabino Jacob APRN.SLOT MACHINE KEY PERSON - 09/26/2023 8:54 AM EST Vitamins and herbs that show potential Magnesium: Magnesium (250 mg twice a day or 500 mg at bed) has a relaxant effect on smooth muscles such as blood vessels. Individuals suffering from frequent or daily headache usually have low magnesium levels which can be increase with daily supplementation of 400-750 mg. Three trials found 40-90% average headache reduction when used as a preventative. Magnesium also demonstrated the benefit in menstrually related migraine. Magnesium is part of the messenger system in the serotonin cascade and it is a good muscle relaxant. It is also useful for constipation which can be a side effect of other medications used to treat migraine. Good sources include nuts, whole grains, and tomatoes. Riboflavin (vitamin B 2) 200 mg twice a day. This vitamin assists nerve cells in the production of ATP a principal energy storing molecule. It is necessary for many chemical reactions in the body. There have been at least 3 clinical trials of riboflavin using 400 mg per day all of which suggested that migraine frequency can be decreased. All 3 trials showed significant improvement in over half of migraine sufferers. The supplement is found in bread, cereal, milk, meat, and poultry. Most Americans get more riboflavin than the recommended daily allowance, however riboflavin deficiency is not necessary for the supplements to help prevent headache. Coenzyme Q10: This is present in almost all cells in the body and is critical component for the conversion of energy. Recent studies have shown that a nutritional supplement of CoQ10 can reduce the frequency of migraine attacks by improving the energy production of cells as with riboflavin. Doses of 150 mg twice a day have been shown to be effective. Melatonin: Increasing evidence shows correlation between melatonin secretion and headache conditions. Melatonin supplementation has decreased headache intensity and duration. It is widely used as a sleep aid. Sleep is natures way of dealing with migraine. A dose of 3 mg is recommended to start for headaches including cluster headache. Higher doses up to 15 mg has been reviewed for use in Cluster headache and have been used. The rationale behind using melatonin for cluster is that many theories regarding the cause of Cluster headache center around the disruption of the normal circadian rhythm in the brain. This helps restore the normal circadian rhythm. documented in this encounter [facility] 09-26-2023 Nurse Note Additional intake questions: Has the patient had fever, nausea, vomiting, diarrhea, constipation, fatigue for > 1 week? Yes, nausea, fatigue, and Provider Notified Does the patient have a decreased appetite? No Does patient want to see a Wind Farm Operations Manager? No (yes to any of above refer patient to schedulers for dietitian appointment) ) Does patient have any new or increased numbness or tingling of extremities? No Is patient interested in fertility information? No Does patient need any prescription refills? No Does patient have an advanced directive in place? No, Patient referred to [facility] documented in this encounter [facility] 09-26-2023 History of Present illness Narrative Images from the original note were not included. Neu[facility] NEURO-ONCOLOGY OUTPATIENT NOTE PURPOSE OF VISIT: Consultation requested by Dr. Connor Servin for an opinion regarding brain metastasis and my final recommendations will be communicated to the referring physician by way of shared medical record or letter to requesting physician via US mail. CHIEF COMPLAINT : Brain metastasis Subjective HISTORY OF PRESENT ILLNESS: Lashell Segura is a 53 year old year old left-handed female with medical history of [id number] stage SUE lung adenocarcinoma. Interval molecular data have demonstrated PD-L1 99%, KRAS G12C+, who was found to have a left temporal brain metastasis when she presented with seizures. GKRS history below: GKRS TREATMENT 07/28/23 - L temporal Primary cancer site : lung adenocarcinoma Primary oncologist : Joleen Jiang MD Current systemic treatment : [id number] Current steroids : n/a Seizure history : expressive aphasia progressed to GTC-follows with Dr. Mcdonnell Current AED : keppra 1500mg BID INTERVAL HISTORY 09/25/23 Since she was last seen she has had no breakthrough seizures. She had a mammogram and irregular mass noted. She needs to schedule breast ultrasound through her OSH PCP. She continues to have wrap around pressure like headaches. Takes tylenol and ibuprofen >10 times per month. SOCIAL HISTORY: Social History Tobacco Use Smoking status: Every Day Packs/day: 1.00 Years: 42.00 Additional pack years: 0.00 Total pack years: 42.00 Types: Cigarettes Substance Use Topics Alcohol use: Yes Comment: Occassionally Drug use: Not Currently PAST MEDICAL HISTORY Diagnosis Date Brain tumor (HCC) Epilepsy (HCC) No family history on file. Current Outpatient Medications Medication Sig loperamide (IMODIUM A-D) 2 mg cap(s) Take 1 capsule by mouth four times a day as needed. prochlorperazine (COMPAZINE) 10 mg tablet Take 1 tablet by mouth every 4 hours as needed. folic acid 1 mg tablet Take 1 tablet by mouth once daily. OLANZapine (ZYPREXA) 5 mg tablet Take 1 tablet by mouth daily at bedtime. Start on the day of chemotherapy and take for 5 night. ondansetron (ZOFRAN) 8 mg tablet Take 1 tablet by mouth every 8 hours as needed for nausea/vomiting. midazolam (NAYZILAM) 5 mg/spray (0.1 mL) nasal spray Use 1 [place] in the nose as needed for seizures lasting longer than 5 minutes for up to 180 days. May repeat dose in alternate nostril after 10 minutes based on response and tolerability. pyridoxine, vitamin B6, (VITAMIN B6) 100 mg tablet Take 1 tablet by mouth once daily. levETIRAcetam (KEPPRA) 750 mg tablet 2 tablets by ORAL/FEEDING TUBE route two times a day. pantoprazole DR (PROTONIX) 40 mg tablet Take 1 tablet by mouth daily at 6 am. famotidine (PEPCID) 20 mg tablet Take 1 tablet by mouth two times a day. acetaminophen (TYLENOL) 325 mg tablet 2 tablets by ORAL/FEEDING TUBE route every 4 hours as needed for pain. atorvastatin (LIPITOR) 40 mg tablet Take 40 mg by mouth once daily. DULoxetine (CYMBALTA) 60 mg capsule Take 60 mg by mouth once daily. No current facility-administered medications for this visit. REVIEW OF SYSTEMS : Neurological : + complaint of headache No complaint of tinnitus No complaint of decreased hearing No complaint of diplopia No complaints of blurred vision. No complaint of arm/leg numbness No problem with limb coordination No complaint of syncope + seizures. No complaints of memory changes or disorientation. General : Constitutional: No recent fever or weight loss. Eyes: No history of glaucoma or cataracts ENMT: No recent ear infection, nasal congestion, mouth sores or sore throat. CV: No history of chest pain, palpitations or leg swelling Respiratory: No history of SOB, wheezing or recent cough. Gastrointestinal: No history of nausea, vomiting, dysphagia or abdominal pain. Genitourinary: No history of hematuria or dysuria. Musculoskeletal: No complaint of arthritis, unstable gait or arm/leg weakness Psychiatric: No history of hallucinations, depression, or anxiety Objective PHYSICAL EXAMINATION: [facility] 05/25/2016 General appearance: Well appearing, alert, in no acute distress, well-hydrated, well nourished. Skin: Skin color, texture, turgor normal, no suspicious rashes or lesions Oropharynx: Lips, mucosa, and tongue normal, teeth and gums normal, oropharynx normal NEUROLOGICAL EXAM: Higher integrative functions: Oriented to person, place & time. Memory: Good recent and remote. Attention Span and Concentration: Good. Language: Accurate naming of objects. Good comprehension. Fund of Knowledge: Good. 2nd CN: Full visual adam. 3rd,4th,6th CN: Pupils (=), round, react to light, full extraocular movements. 5th CN: No decrease in facial sensation 7th CN: Facial muscles symmetric and strong. 8th CN: Hears finger rub well bilaterally. 9th CN: Gag not tested 10th CN: Spontaneous palate movement, full and symmetric. 11th CN: Full strength in shoulder shrug. 12th CN: Tongue protrusion full and midline. Sensation: No decrease in sensation in upper or lower limbs to touch. Musculoskeletal: Gait is normal. Motor: 5/5, R=L, UE=LE. Normal muscle tone without atrophy in all limbs. Coordination: Rapid alternating movements fast and smooth all limbs. No dysdiadochokinesis. IMAGING STUDIES: MRI Brain WO/W IVCON 09/25/23 MRI Report MRI BRAIN WO/W IVCON Exam End: 09/26/2023 7:49 AM (Final result) Narrative: * * *Final Report* * * DATE OF EXAM: Sep 26 2023 7:49AM QBM [id number] - MRI BRAIN WO/W IVCON / PROCEDURE REASON: Secondary malignant neoplasm of brain (HCC) * * * * Physician Interpretation * * * * EXAMINATION: MRI BRAIN WO/W IVCON CLINICAL HISTORY: Brain metastases status post gamma knife radiosurgery 07/28/2023. TECHNIQUE: Intracranial mass protocol without and with contrast, including perfusion imaging. MQ: [id number] Contrast: 16 mL Dotarem IV COMPARISON: Localization MRI of the brain 07/28/2023, MRI brain 07/20/2023 RESULT: Acute Change: There is no evidence of restricted diffusion to suggest an acute infarct. Hemorrhage: No evidence of prior parenchymal hemorrhage on the gradient echo images. Mass Lesion/ Mass Effect: Interval decrease in vasogenic edema involving the left temporal lobe and posterior parasylvian region. The well-circumscribed enhancing lesion in the subcortical aspect of the left lateral temporal lobe measures 5 x 7 mm, previously 7 x 8 mm. No significant mass effect. No new lesions are identified. Perfusion imaging was obtained and appears technically adequate. There is no abnormally elevated cerebral blood volume. Chronic Change: Scattered punctate foci of increased T2 and FLAIR signal are noted in the supratentorial white matter which is a nonspecific finding, but likely represents minimal chronic microvascular ischemia. Parenchyma: No significant volume loss for age. The brain parenchyma is otherwise within normal limits of signal intensity and morphology. Ventricles: Normal caliber and morphology. Skull Base: Hypothalamic and pituitary region are grossly normal. Craniocervical junction is normal. No significant marrow replacement process. Vasculature: Major intracranial arterial structures, and dural venous sinuses show typical flow void, suggesting patency by spin echo criteria. Other: Mild scattered mucosal thickening of the paranasal sinuses. Mastoid air cells are well aerated. Orbits and globes are unremarkable. Visualized extracranial soft tissues are within normal limits. Impression: IMPRESSION: Interval decrease in size of left temporal metastatic lesion and associated vasogenic edema since 07/28/2023 and 07/20/2023. No evidence of neovascularity. No new lesions are identified. Breakfast Cook: PSCB Transcribe Date/Time: Sep 26 2023 8:14A Dictated by : DONNA CHAPMAN MD This examination was interpreted and the report reviewed and electronically signed by: DONNA CHAPMAN MD on Sep 26 2023 8:22AM EST KPS SCORE: 80 MEDICAL DECISION MAKING Assessment & Plan 1. Brain metastasis s/p GKRS on 07/28/24 - MRI brain today appears to show decrease edema and size of treated brain metastasis - Images reviewed with the patient, , and daughter in law - Recommend follow up appointment with Mariela Rivera in [place] and new MRI brain in 3 months in [place] - Reviewed signs and symptoms that would prompt sooner evaluation - The patient has our contact information and was advised to call if new symptoms, questions or concerns arise prior to next scheduled visit. - All questions were answered. 2. Headaches - Discussed rebound headaches and refrain from taking OTC pain meds >10 times per month - list of headache herbals printed for patient, clear with Dr. Jiang before taking Gabino Jacob APRN.CNP Certified Nurse Practitioner cc: Connor Servin MD--EPIC documented in this encounter [facility] 09-26-2023 History of Present illness Narrative Radiology Service Progress Note DATE OF SERVICE: September 26, 2023 TIME: 7:05 AM PATIENT WEIGHT: 170LBS PATIENT IDENTITY VERIFICATION COMPLETED USING TWO (2) STANDARD IDENTIFIERS: Name and Date of confirmed by patient verbally and Name and Date of confirmed by identification band. FALL SCREENING: Has the patient had 2 falls in the last year or 1 fall with injury or currently using an Ambulatory Assistive Device (Walker, Cane, Wheelchair, Crutches, etc.)? No PATIENT GENDER DATA: Female. status: : No status: NO. ALLERGIES: Reviewed and unchanged CONTRAST ALLERGY: No EXAM: MRI - CONTRAST TYPE: GROUP II IV SITE: Ambulatory: A peripheral IV was started in the Right antecubital site with a Angio cath: 22 gauge. and A Saline lock was inserted per protocol IV SITE APPEARANCE: Clean,Dry and Intact SIGNATURE: Mirtha Agustin RN PATIENT NAME: Lashell Segura DATE: September 26, 2023 TIME: 7:05 AM Radiology Service Progress Note PATIENT NAME: Lashell Segura DATE OF SERVICE: September 26, 2023 TIME: 7:32 AM PATIENT IDENTITY VERIFICATION COMPLETED USING TWO (2) IDENTIFIERS: Name and Date of confirmed by patient verbally and Name and Date of confirmed by identification band. FALL SCREENING: Has the patient had 2 falls in the last year or 1 fall with injury or currently using an Ambulatory Assistive Device (Walker, Cane, Wheelchair, Crutches, etc.)? No PATIENT GENDER DATA: Female. status: : No status: NO. PATIENT RELEVANT IMPLANT DATA REVIEWED: Yes PATIENT PRESENTS WITH AN IMPLANTABLE OR ATTACHED CARPENTER APPRENTICE: No RADIOLOGY DEPARTMENT: MR; Exam(s) Completed: Head: Routine Brain with Perfusion PERIPHERAL IV DATA: Site assessment: Clean,Dry and Intact, Site disposition Discontinued SIGNED BY: RT Adelso(MR) September 26, 2023 7:32 AM documented in this encounter [facility] 09-24-2023 Miscellaneous Notes [address] [address] September 24, 2023 PID: [id number] Lashell Segura [address] [place] [address] Dear Ms. Segura, Your recent breast imaging exam on 09/23/2023 showed a possible finding that requires additional imaging studies for a complete evaluation. Most such findings are probably benign (not cancer). Your mammogram demonstrates that you have dense breast tissue, which could hide abnormalities. Dense breast tissue, in and of itself, is a relatively common condition. Therefore, this information is not provided to cause undue concern; rather, it is to raise your awareness and promote discussion with your health care provider regarding the presence of dense breast tissue in addition to other risk factors. If you have a healthcare provider who ordered/prescribed your screening mammogram: Please call [phone] to schedule an appointment for your additional imaging (if you have not already done so). If you DO NOT have a healthcare provider (ie you did not have an order/prescription for your screening mammogram): Please call [phone] to schedule an appointment for your additional imaging (if you have not already done so). You must have an order / prescription from your physician when calling to schedule your appointment. If your order / prescription is not electronic, you must bring the hard copy with you on the day of your exam to avoid rescheduling your exam. Your imaging studies and reports are kept on file at [facility] as part of your permanent medical record, and are available for your continuing care. Thank you for allowing us to help in meeting your health care needs. Sincerely, Dr. 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 PD-L1 99% Molec pending PLAN: I reviewed the diagnosis at length with Ms. Segura and her family. Based on current scans and pathology reports you have a stage IV disease that should be treated in a systemic manner with either targeted therapy if mutations are detected or with combination chemotherapy plus immunotherapy if no mutations exist. Single agent immunotherapy can be used since PD-L1 is 99%. We will have a final decision on the day of treatment. CC: Chandler Lieberman [id number] [facility] [id number] Martine Marrufo APRN.SLOT MACHINE KEY PERSON [address] [address] [address] Lieberman for an opinion regarding Ms. Lashell Segura, and my final recommendations will be communicated back to the requesting physician by way of shared medical record or letter via US mail. HPI: Lashell Segura presents to [facility] today for thoracic oncology evaluation. She is a 53 year old female with recent diagnosis of stage IV non-small cell lung cancer, adenocarcinoma. Patient originally presented to with sudden onset expressive aphasia to the emergency room and had a witnessed generalized tonic-clonic seizure. Chest x-ray showed a left upper lobe mass concerning for malignancy. CT had showed left upper lobe lesion with significant vasogenic edema. Patient was transferred [facility] for neuro[facility] evaluation. CT chest abdomen pelvis done on July 21 showed a 4.2 x 3.6 cm lingular mass associated with occlusion of lingular bronchus. There is some postobstructive atelectasis. There are numerous bilateral solid/nonsolid nodules with the largest being 1.6 x 1.1 cm in the right lower lobe. There is a large left hilar lymph node 11 mm as well as enlarged right hilar lymph node 12 mm. T11 compression fracture. Right breast 11 mm nodule. MRI brain shows a 1 cm left temporal lobe mass. Patient has bronchoscopy and endobronchial biopsy of the left upper lobe lesion was positive for adenocarcinoma PD-L1 99% ALK negative remaining molecular pathology is negative. Patient received gamma knife treatment on July 28, 24 Anton in 1 fraction,with no significant side effects MEDICATIONS: folic acid 1 mg tablet Take 1 tablet by mouth once daily. OLANZapine (ZYPREXA) 5 mg tablet Take 1 tablet by mouth daily at bedtime. Start on the day of chemotherapy and take for 5 night. ondansetron (ZOFRAN) 8 mg tablet Take 1 tablet by mouth every 8 hours as needed for nausea/vomiting. dexAMETHasone (DECADRON) 4 mg tablet Start the day after your Gamma Knife procedure:Decadron (Dexamethasone), Take 4 mg (1 tablet) three times a day for 4 days, Then Take 4 mg (1 tablet) twice a day for 4 days then, Take 4 mg (1 tablet) once a day for 4 days then, Take 2 mg (1/2 tablet) once a day for 4 days then Take 2 mg (1/2 tablet) every OTHER day for 4 doses then, Stop the Decadron famotidine (PEPCID) 20 mg tablet Take 1 tablet by mouth two times a day. acetaminophen (TYLENOL) 325 mg tablet 2 tablets by ORAL/FEEDING TUBE route every 4 hours as needed for pain. dexAMETHasone (DECADRON) 4 mg tablet Take 4mg in the morning and 4mg in the afternoon until directed otherwise. Take Protonix daily while taking Decadron levETIRAcetam (KEPPRA) 750 mg tablet 2 tablets by ORAL/FEEDING TUBE route two times a day. pantoprazole DR (PROTONIX) 40 mg tablet Take 1 tablet by mouth daily at 6 am. atorvastatin (LIPITOR) 40 mg tablet Take 40 mg by mouth once daily. DULoxetine (CYMBALTA) 60 mg capsule Take 60 mg by mouth once daily. HYDROcodone-acetaminophen (NORCO) 5-325 mg per tablet Take 1 tablet by mouth every 6 hours as needed. cyclobenzaprine (FLEXERIL) 10 mg tablet Take 1 tablet by mouth every 8 hours as needed for Muscle Spasm (or pain). (Patient not taking: Reported on 08/04/2023) HYDROcodone-acetaminophen (NORCO) 5-325 mg per tablet Take 1 tablet by mouth every 6 hours as needed. ALLERGIES: ALLERGIES Allergen Reactions Eggs [Egg] Hives Latex Hives Penicillins Hives Penicillins Unknown History reviewed. No pertinent family history. Social History Tobacco Use Smoking status: Every Day Packs/day: 0.50 Years: 20.00 Additional pack years: 0.00 Total pack years: 10.00 Types: Cigarettes Substance Use Topics Alcohol use: Yes Comment: Occassionally Drug use: Not Currently REVIEW OF SYSTEMS GENERAL: No fevers, chills, or nightsweats HEENT: No difficulty swallowing, ringing in the ears, nor blurry vision HEMATOLOGY/LYMPHOLOGY Negative for prolonged bleeding, bruising easily, lumps or swollen Lymph nodes. PULMONARY: Pleuritic chest pain, Cough; dry, Dyspnea CARDIOVASCULAR: Negative for leg swelling or palpitations. GI: Negative for N/V, diarrhea or constipation, abdominal discomfort, hematemesis, hematochezia or melena. MUSCULOSKELETAL: Negative for bone or joint pain or swelling, back pain or muscle pain. NEURO: No history of headaches, syncope, focal weakness or paralysis, seizures, numbness or tingling of hands or feet ECOG PERFORMANCE STATUS: 1 PHYSICAL EXAMINATION: Vitals: BP 126/78 Pulse 87 Temp (Src) 98 (Oral) Resp 16 Ht 5' 3.976 (1.63m) Wt 172 lb 9.9 oz (78.3kg) SpO2 98% LMP 05/25/2016 BMI 29.65 kg/(m^2). Body surface area is 1.88 meters squared. General: WD/WN woman in NAD. HEENT: Sclerae anicteric, conjunctiva non-injected. Wearing mask. No temporal wasting. Lungs: easy work of breathing. Symmetric chest movement Abdominal: No obvious ascites or organomegaly. Extremities: No digital clubbing, cyanosis, or edema. Skin: No rash, petechiae or purpura. Neurological: AOx3, mood and affect appropriate. Gait nml. LABORATORY VALUES: FINAL DIAGNOSIS A. Left lung, upper lobe, endobronchial biopsy: - Adenocarcinoma. PD-L1 by IHC Immunohistochemistry for PD-L1 expression Tumor Proportion Score: 99% Block Analyzed: A1 PD-L1 Clone: 22C3 Comment: N/A RADIOLOGY REVIEW: Images reviewed by me in the presence of patient as mentioned in the HPI. 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 PD-L1 99% Molec pending ASSESSMENT AND PLAN: # NSCLC: Based on current scans and pathology reports you have a stage IV disease that should be treated in a systemic manner with either targeted therapy if mutations are detected or with combination chemotherapy plus immunotherapy if no mutations exist. The appropriate treatment is systemic therapy, so there is no role for surgery. Radiation therapy can be used for symptomatic management if needed. The appropriate systemic treatment will depend on the presence or lack thereof of specific mutations. We discussed the potential side effects of chemotherapy including but not limited to weakness, fatigue, decreased appetite, nausea vomiting, abdominal pain, diarrhea, neuropathy, sensitivity to cold. We also discussed potential decrease in cell counts and risk of having infections, bleed or needing blood transfusions. Will plan on scheduling for chemotherapy infusion on 20 August and by then we should have the results from molecular pathology. Patient is still hesitant whether she would like to have both chemoimmunotherapy or immunotherapy only. We will get a PET scan to better delineate any bony involvement and distant metastasis. - Brain Mets: Received GKRS and is on steroid taper. Patient will continue to follow-up with BTI - Breast nodule: Patient is scheduled for a mammogram for further evaluation. All their questions were answered to their satisfaction and they know how to contact us in case they have any other concerns or issues. Joleen Jiang MD documented in this encounter [facility] 08-04-2023 Miscellaneous Notes Pt scheduled as requested 08/20 1100am prior to other appt Authorization number: ORM / GPS to process Authorization date range: ORM / GPS to process Primary Insurance: MMO Diagnosis: Neoplasm of lung [D49.1] DX Imaging: CT/CTA: Ct Chest, Abd/Pel Pathology: 07-22-23 Left lung, upper lobe, endobronchial biopsy: - Adenocarcinoma Labs: na Clinical Notes Reviewed: 08-04-23 Hem Onc 07-28-23 Rad Onc Date of last: na Additional Information: N/A Radiologist Reviewed: N/A Initial/Subsequent: Initial Treatment Strategy: 59 PET Protocol: Top Of Ear To Proximal Thigh Diagnostic Imaging Requested: No Is this a Pretreatment and/or an initial Pet scan: Yes - Please schedule within 3 buisness days and spencer referral urgent, if needed. Comments for [place]: before 08/20/2023 ROUTE TO SCHEDULERS POOL P PET WINDER CONTORT OPERATOR MC or P NM SPECIAL STUDIES MC This form is used for MAIN CAMPUS APPOINTMENTS ONLY. Is this request for a [place] PET scan appointment? Yes: Drill Press Hand: CONNIE Larkin Requesting Person (Last Name, First Name): Lashell Segura Area Code + Phone/Pager: [phone] Who do we call to schedule this appointment? Patient Requesting Staff Dr. Jiang Area Code + Phone/Pager: [phone] (Pager) PET Orders (A delay in scheduling will result if the orders are not present at time of review): Internal ADDITIONAL ACTION MAY BE REQUIRED IF PATIENTS OON INSURANCE OR SELF PAY COVERAGE HAS NOT BEEN CLEARED FOR REQUESTED APPOINTMENT. Scheduling: MIKY: As soon as insurance will allow What account will this PET appointment be linked to? P/F Type of PET: Oncology: Are there additional diagnostic CT scans required to be done at time of PET scan? No Is the request for a PET MR ? No What account will diagnostic testing appointment be linked to? P/F Will the patient need anesthesia? NO Send requests to P COORD REVIEW [facility] documented in this encounter [facility] 08-04-2023 Nurse Note Additional intake questions: Has the patient had fever, nausea, vomiting, diarrhea, constipation, fatigue for > 1 week? yes fatigue Does the patient have a decreased appetite? No Does patient want to see a Wind Farm Operations Manager? No (yes to any of above refer patient to schedulers for dietitian appointment) ) Does patient have any new or increased numbness or tingling of extremities? No new or worse Is patient interested in fertility information? NA Does patient need any prescription refills? No Does patient have an advanced directive in place? No, Patient referred to [facility] Electronically Signed By: Washington Elder LPN documented in this encounter [facility] 08-01-2023 Miscellaneous Notes I spoke with Lashell and let her know that she does have an appointment with Dr. Jiang who is an Oncologist. We reviewed the date, time and location of the appointment. Lashell asked me about FMLA paperwork. I told Lashell that there was no paperwork sent to me for FMLA from her employer. I explained that Dr. Servin usually does not give FMLA for Gamma Knife procedures as the patient can return to work the next day without restrictions. I encouraged her to reach out to her primary care physician to see if they can provide the paperwork that is required by her employer. Lashell verbalized understanding. Herlinda Waldrop LABOR ARBITRATOR Vehicle Body Builder, Dr. Servin General Call Caller : pt Contact Reason for Call : Pt would like to discuss possibility of pulmonary visit per conversation with Dr. Servin. Patient requesting return call ? Yes documented in this encounter [facility] 07-29-2023 History of Present illness Narrative Summary: NON-CLINICAL Abstract for Lung Program Images from the original note were not included. Lung Cancer Program Abstract , Non-Clinical Purposes Only 07/29/23 Shirley Aguayo, Patient Liaison Ruby Developer Patient Name: Lashell Segura : 1970 REFERRING PROVIDER: Roberto Pathology: Internal biopsy on 07/22/2023 at [facility] SURGICAL PATHOLOGY: [id number] Order: [id number] Collected 07/22/2023 2:18 PM Status: Final result Visible to patient: No (scheduled for 08/01/2023 2:16 PM) Dx: Lung mass 0 Result Notes Component FINAL DIAGNOSIS A. Left lung, upper lobe, endobronchial biopsy: - Adenocarcinoma. LOGY NON-TECHNICAL SERVICES ANALYST: [id number] Order: [id number] Collected 07/22/2023 2:16 PM Status: Final result Visible to patient: No (scheduled for 08/02/2023 11:36 AM) Dx: Lung mass 0 Result Notes Component FINAL DIAGNOSIS A - TRANSBRONCHIAL FINE-NEEDLE ASPIRATION - LEFT UPPER LOBE Positive for malignant cells. Adenocarcinoma (see comment). CHART REVIEW: Ms. Segura was transferred [facility] after brain imaging finding concern for metastatic disease. Inpatient EBUS completed on 07/22/2023 confirmed diagnosis of lung primary Adenocarcinoma. Brain tumor team consulted and decision was made to proceed with outpatient GKS, completed on 07/28/2023. TOP panel ordered 07/29/2023. PLEASE SEE BOOK MARKED ENCOUNTERS FOR ADDITIONAL INFORMATION Additional information/studies needed: Medical Oncology Consult, Molecular studies pending. Review with provider: Dr. Turcios Appointments scheduled: Pending, request sent to [facility]. documented in this encounter [facility] 07-28-2023 History of Present illness Narrative Radiology Service Progress Note PATIENT NAME: Lashell Segura DATE OF SERVICE: July 28, 2023 TIME: 9:00 AM PATIENT IDENTITY VERIFICATION COMPLETED USING TWO (2) IDENTIFIERS: Name and Date of confirmed by patient verbally and Name and Date of confirmed by identification band. FALL SCREENING: Has the patient had 2 falls in the last year or 1 fall with injury or currently using an Ambulatory Assistive Device (Walker, Cane, Wheelchair, Crutches, etc.)? No PATIENT GENDER DATA: Female. status: : No status: NO. PATIENT RELEVANT IMPLANT DATA REVIEWED: Yes RADIOLOGY DEPARTMENT: CT; Exam(s) Completed: Brain PERIPHERAL IV DATA: Not applicable SIGNED BY: RT Geovanny(R) July 28, 2023 9:00 AM documented in this encounter [facility] 07-28-2023 History of Present illness Narrative Images from the original note were not included. Radiation Oncology - Follow Up Note PATIENT NAME: Lashell Segura PATIENT DIAGNOSIS: 53 year old woman with new diagnosis of NSCLC of the REILLY lung metastatic to brain (PD-L1 99%) with concomitant seizures with right temporal metastasis. INTERVAL HISTORY: She was admitted for seizure on 07/20/23 and was discharged 07/23/23. MRI brain from 07/20/23 revealed 1 cm enhancing ovoid mass within the left temporal lobe, with significant surrounding vasogenic edema. She has on decadron 4 mg 2X/day. She returns for schedule Gamma Knife Radiosurgery procedure today. She is here with her and [id number]. ALLERGIES Allergen Reactions Eggs [Egg] Hives Latex Hives Penicillins Hives Penicillins Unknown MEDICATIONS: acetaminophen (TYLENOL) 325 mg tablet 2 tablets by ORAL/FEEDING TUBE route every 4 hours as needed for pain. dexAMETHasone (DECADRON) 4 mg tablet Take 4mg in the morning and 4mg in the afternoon until directed otherwise. Take Protonix daily while taking Decadron levETIRAcetam (KEPPRA) 750 mg tablet 2 tablets by ORAL/FEEDING TUBE route two times a day. pantoprazole DR (PROTONIX) 40 mg tablet Take 1 tablet by mouth daily at 6 am. atorvastatin (LIPITOR) 40 mg tablet Take 40 mg by mouth once daily. DULoxetine (CYMBALTA) 60 mg capsule Take 60 mg by mouth once daily. HYDROcodone-acetaminophen (NORCO) 5-325 mg per tablet Take 1 tablet by mouth every 6 hours as needed. cyclobenzaprine (FLEXERIL) 10 mg tablet Take 1 tablet by mouth every 8 hours as needed for Muscle Spasm (or pain). HYDROcodone-acetaminophen (NORCO) 5-325 mg per tablet Take 1 tablet by mouth every 6 hours as needed. PHYSICAL EXAM: Vitals: LMP 05/25/2016 KPS: 90 General: Awake, alert, no acute distress HEENT: Normocephalic, atraumatic, sclera anicteric Neck: Supple, full range of motion, no palpable cervical or supraclavicular adenopathy Cardiovascular: RRR Respiratory: CTA Abdomen: Well-nourished, no distention Extremities: No edema. Neuro: CN II-XII intact, no gross motor deficits. Motor 5/5. Sensation intact. Gait steady. Recites zip code backward. MRIB 07/20/23: ASSESSMENT AND PLAN: 53 year old woman with new diagnosis of adenocarcinoma NSCLC of the REILLY lung metastatic to brain (PD-L1 99%) with concomitant seizures with right temporal metastasis. The natural history and treatment options for brain metastases were fully discussed with the patient and family. I reviewed the various treatment options including Gamma Knife radiosurgery. The rationale, risks, benefits, alternatives, consent and personnel of treatment were fully discussed with the patient and family who voiced understanding. All questions were answered. The patient has given consent to proceed and has signed informed consent. Will make referral to thoracic oncology. Signed by: Chandler Lieberman MD cc: Martine Marrufo CNP ([facility]) [address] [address] Connor Servin MD - [facility] documented in this encounter [facility] 07-28-2023 Instructions Phuong Remy RN - 07/28/2023 11:14 AM EST [facility] Gamma Knife [facility] Discharge Instructions As with any surgery there are risks and potential side effects. There is a slight chance of developing brain swelling days or months after the Gamma Knife radiosurgery. If you experience nausea, vomiting, severe headache, visual changes, difficulty speaking, a seizure or any other symptom unusual for you, contact your physician immediately or go to the nearest emergency room. These may or may not be symptoms of brain swelling. If you go to a physician or hospital other than the [facility] with any problem related to the Gamma Knife procedure, please notify the Gamma Knife nurse. Rarely, patients experience pain the day after their radiosurgery. You may take non-aspirin pain medication, such as Ibuprofen or Tylenol, if you are having any discomfort. Some patients are placed on steroids, such as Decadron, and an antacid, such as Pepcid, following their radiosurgery. Certain conditions require these medications to lessen the chance of swelling around the treated area. When prescribed, these medications are extremely important in the period immediately following your Gamma Knife treatment and must be taken exactly as directed. The Gamma Knife nurse will discuss your particular situation with you. Do not take any Decadron for the remainder of today. Begin following the regimen below on 07/29/23: Start the day after your Gamma Knife procedure: Decadron (Dexamethasone): 1. Take 4 mg (1 tablet) three times a day for 4 days 2. Take 4 mg (1 tablet) twice a day for 4 days 3. Take 4 mg (1 tablet) once a day for 4 days 4. Take 2 mg (1/2 tablet) once a day for 4 days 5. Take 2 mg (1/2 tablet) every OTHER day for 4 days 6. Stop the Decadron Pepcid (Famotidine): Take Pepcid 20 mg (1 tablet) twice a day while on Decadron; stop Pepcid when you stop the Decadron. Resume all other regular medications. - Taking good care of your general health is an important step to recovery. Continue to eat well and get plenty of rest. At the time of discharge, you will be given your follow-up appointments with your neurosurgeon and radiation oncologist. If not, these appointment dates and times will be mailed to you. If you have any questions or problems, you may your physician, Dr. Moreno Servin at [phone] Friday through Friday 8:00 am to 5:00 pm, or call the Gamma Knife nurse Friday through Friday 8:00 am to 4:00 pm at [phone]. In the evening or on weekends, call [phone] or toll-free [phone] and ask the cap and stud machine operator to page your neurosurgeon's resident wagon driller. documented in this encounter [facility] 07-28-2023 History of Present illness Narrative Radiology Service Progress Note DATE OF SERVICE: July 28, 2023 TIME: 8:31 AM PATIENT WEIGHT: 165 LBS PATIENT IDENTITY VERIFICATION COMPLETED USING TWO (2) STANDARD IDENTIFIERS: Name and Date of confirmed by patient verbally and Name and Date of confirmed by identification band. FALL SCREENING: Has the patient had 2 falls in the last year or 1 fall with injury or currently using an Ambulatory Assistive Device (Walker, Cane, Wheelchair, Crutches, etc.)? No PATIENT GENDER DATA: Female. status: : No status: NO. ALLERGIES: Reviewed and unchanged CONTRAST ALLERGY: No EXAM: MRI - CONTRAST TYPE: GROUP II IV SITE: Ambulatory: A peripheral IV was started in the Right antecubital site with a Angio cath: 22 gauge. and A Saline lock was inserted per protocol IV SITE APPEARANCE: Clean,Dry and Intact SIGNATURE: Sindhu Dang RN PATIENT NAME: Lashell Segura DATE: July 28, 2023 TIME: 8:31 AM Radiology Service Progress Note PATIENT NAME: Lashell Segura DATE OF SERVICE: July 28, 2023 TIME: 9:11 AM PATIENT IDENTITY VERIFICATION COMPLETED USING TWO (2) IDENTIFIERS: Name and Date of confirmed by patient verbally. FALL SCREENING: Has the patient had 2 falls in the last year or 1 fall with injury or currently using an Ambulatory Assistive Device (Walker, Cane, Wheelchair, Crutches, etc.)? No PATIENT GENDER DATA: Female. status: : No status: NO. PATIENT RELEVANT IMPLANT DATA REVIEWED: Yes RADIOLOGY DEPARTMENT: MR; Exam(s) Completed: Head: Localization PERIPHERAL IV DATA: Site assessment: Clean,Dry and Intact, Site disposition Discontinued SIGNED BY: Zamzam Melvin RT(R) July 28, 2023 9:11 AM documented in this encounter [facility] 07-28-2023 History of Present illness Narrative July 28, 2023 0728: Lashell arrived ambulatory Discharge Transportation Verification: Yes, via/with Lashell arrived for imaging, mask SIM, ICON mask-based GKRS, and single-session mask-based treatment. Patient's Age: 53 Menstruation Status: TECHNICAL SERVICES ANALYST ENDO SX: Menopause 0732: Mask SIM completed. Lashell returned to department for treatment # 1 of 1. Is patient receiving immunotherapy infusions? No. 1524: 2 mg Decadron PO given prior to GKRS per order of Dr. Moreno Servin 1510: GKRS start time. 1519 1538: GKRS end time. 1549: Discharge instructions given to patient; instructions reviewed by this RN; patient/family verbalized understanding; patient discharged via/with and daughter. Phuong Remy, RN documented in this encounter [facility] 07-28-2023 History of Present illness Narrative LASHELL MARLOW Allyson [id number] 07/28/2023 [facility] STEREOTACTIC RADIOSURGERY (SRS) DAILY PROCEDURE NOTE DATE OF PROCEDURE: 07/28/2023 FRACTION NUMBER: 1 of CUMULATIVE DOSE: 24 Gy (Out of a planned 24 Gy) DIAGNOSIS: 53 year old woman with new diagnosis of NSCLC of the REILLY lung metastatic to brain (PD-L1 99%) with concomitant seizures with right temporal metastasis. PROCEDURE: Under my direct supervision the patient was set up on the treatment table and all treatment parameters were verified, including patient identity and treatment site. CBCT obtained which was co-registered using the treatment planning system. Adaptive replan was verified and approved. Once the beam was turned on, the patient position and target location were continuously monitored during delivery of the SRS using infrared tracking. At all points of decision-making with regard to patient setup, I conferred with the medical genetics director to approve the final setup. I was available throughout the SRS treatment to manage the execution of the treatment and make real-time adjustments in response to patient motion, target movement, or equipment issues to ensure accuracy and safety. The patient was evaluated by me after treatment and was discharged home in stable condition. DESCRIPTION OF IMMBOLIZATION/PROCE DURE: # ARCS/ADAM TREATED 5-point Orfit mask Dynamic Conformal Arcs Body Fix Inverse Plan Algorithm/IMRT Beams Abdominal compression-plunger device RapidArc Abdominal compression- belt device X Gamma Knife Active Breathing Coordinator (ABC) X ICON TREATMENT VOLUMES: GTV (Defined by neurosurgeon) DOSES: GTV total of 24 Gy PHYSICIST NAME: Zeb Encarnacion INTERVENTIONS: None ASSESSMENT/PLAN: Patient tolerated procedure well. Electronically Signed CHANDLER LIEBERMAN M.D. 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 DELIVERED DOSE: 2400.0 cGy was prescribed to the 56% isodose line, which covered 100% of the target. The plan utilized 5 shots using 8 mm, composite sectors, with some of the sectors blocked. GTV volume = 0.287 cm3. Maximum dose = 4290.0 cGy. Maximum diameter = 0.86 cm. MD/PD = 1.788. PIV/CTV = 1.99. Gradient Index = 3.79. Number of Fractions = 1. 1 separate treatment plans were devised. ELAPSED TREATMENT TIME: 28 minutes (one session). Start time: 3:10 PM/Stop time: 3:38 PM TOLERANCE: Excellent. RESPONSE: To be evaluated. REMARKS: The patient will follow-up in 2 months with repeat MRI scan. Authorized user was present during the entire treatment. The total treatment time was within 10% of the written directive. Staff Physician Chandler Lieberman M.D./ 35:20 PM Electronically Signed cc: Martine Marrufo CNP ([facility]) [address] [address] Connor Servin MD - [facility] documented in this encounter [facility] 07-28-2023 History of Present illness Narrative LASHELL MARLOW [id number] 07/28/2023 [facility] Department of Radiation Oncology [facility] RADIATION ONCOLOGY GAMMA KNIFE TREATMENT PLANNING NOTE For reasons stated in the consult note, LASHELL MARLOW is a candidate for palliative radiosurgery. Based on review and interpretation of the relevant diagnostic studies together with the exam findings, LASHELL MARLOW was imaged on 07/28/2023. The CT and MRI imaging was fused and checked in Gamma Plan by the radiation oncologist/neurosurgeon and physicist and the target volume to be treated as well as the critical normal structure(s) were delineated. After participating in the treatment planning process with neurosurgery and medical physics, I approved the best plan to deliver my prescribed course of radiosurgery. The target tissue was planned using Gamma Plan to allow for the best isodose distribution and dosimetry/DVH. The dose to normal tissue and target tissue was confirmed upon review of the calculated dose. A completed summary of this plan dated 07/28/2023 incorporated herein by reference includes dose, isodose distribution and DVH. Electronically Signed Chandler Lieberman M.D. / RF 33:37 PM documented in this encounter [facility] 07-23-2023 Note HNO ID: [id number] Author: Lou Bah MD Service: Pulmonary Disease Author Type: Resident Type: Plan of Care Filed: 07/23/2023 4:10 PM Note Text: Pt s/p bronch w. Bal/bx. Pulm will follow pathology results if she is Dc'd prior to preliminary read. Though given brain lesions, pt presumably has a lung malignancy. Lou Bah Internal Medicine PGY-2 [id number] [facility] 07-23-2023 Note HNO ID: [id number] Author: Svitlana Landa APRN.SLOT MACHINE KEY PERSON Service: Neurology General Author Type: Nurse Practitioner Type: Plan of Care Filed: 07/23/2023 12:07 PM Note Text: NEUROLOGY PLAN OF CARE NOTE Patient: Lashell Segura Date: July 23, 2023 Time: 8:16 AM BEM 07/22-07/23/2023: Continuous slow, lateralized, left hemisphere PLEDs, lateralized, left hemisphere max left fronto-temporal region Cortical dysfunction in left hemisphere and potential epileptogenicty left fronto-temporal No EEG seizures Last EEG seizure 20:16 on 07/21 lasting three minute without clinical signs. LEV subsequently increased from 1 gram BID to 1.5 gram BID. Continues on LEV 1.5 gram BID On dexamethasone 4 mg BID per NSGY Impression/Recommendations Lashell Mathis is a 53 yo RHF with PMH current smoker who presented with first time seizure and newly discovered left temporal mass lesion. Now s/p LEV load and initiation of maintenance LEV. She has been on BEM for > 48 hours with interictal showing potential epileptogenicity from area of known lesion and on EEG seizure on 07/21 prior to increasing maintenance dose of LEV. No seizures in the last 24 hours on increased dose of Keppra so reasonable to stop BEM and monitor clinically. She will need to stay on anti-seizure medication for now. Recommendations: -- From a neuro perspective, okay to stop BEM -- Continue LEV (Keppra) 1.5 gram BID -- Seizure rescue: Ativan 2 mg IV for GTC > 3 min or 3 or more such seizures in 8 hr time frame -- Seizure precautions -- [place] [phone] if Ativan is given for seizures -- Outpatient epilepsy follow up 08/06/2023 -- Please include attached seizure precautions in the patient's discharge instructions. These were discussed with the patient, including that she SHOULD NOT DRIVE until cleared by a provider and the risk of suicidality in all seizure medications. Observe seizure precautions, which I explained to the patient in detail. These include; no driving until cleared by state protocol, climbing to heights, bathing unattended, swimming, working or playing near open source of heat, or holding small children unsupervised. Generally avoid circumstances where you would potential harm yourself or others if you were to lose consciousness. No driving until cleared by state protocol (please see http://www.epilepsyfoundation.org /resources/Nyzncja-Xeuc-yx-State. cfm for more information). SEIZURE SAFETY DURING SLEEP: Always take anti-epileptic medications as prescribed by your doctor. Objects near the bed may cause injury if someone has a seizure is prone to falling out of bed. Move heavy furniture, floor lamps, night stands and other dangerous objects away from the bed. Mattresses and pillows should be firm and not soft. All stuffed animals, toys and other objects should be removed from the bed. Blankets can be layered but should be thin, down comforters may be too soft. Keep the bed as low to the ground as possible. Some patients with night time seizures may sleep with their mattress on the floor. Others may pad the floor with mats (such as exercise mats used in workout facilities) to pad the floor. During sleep, keep the bedroom door cracked open so someone can hear if you are having a seizure. Never lock the bedroom door. Some people choose to use baby monitors to observe for seizures at night. FIRST- AID MEASURES FOR GRAND MAL SEIZURES If the patient has a grand mal seizure: Do not panic, call for assistance if needed. Lower patient to the ground and loosen any tight clothing. Place patient in a semi-prone position so any saliva or vomitus will easily drain out of the mouth. Do not force any object or your fingers into the mouth. You may suffer an injury or break teeth. Do not panic; time the seizure so you know how long it lasted (most grand mal seizures are no more than 1 or 2 minutes long). If the seizure is continuing longer than 5 minutes, call the ambulance for transportation to the nearest Emergency Room. Call your doctor if you feel that the severity or number of seizures has changed from baseline. After a grand mal seizure, patients are very sleepy and tired for several minutes or even a couple of hours. They may also complain of headache, nausea and may vomit. If the patient has several grand mal seizures without waking up in-between, please notify your doctor. SEIZURE AND GENERAL PRECAUTIONS The patient should not climb to high places, such as climbing on the roof, trees or mountain climbing when a seizure may produce a serious fall and injury. When in or near water, the patient should be supervised by a responsible adult, for example, during tub baths, swimming, boating or fishing. Sleeping face down in a prone position (on the stomach) should be avoided. Do not discontinue seizure medication (more content not included)... [facility] 07-22-2023 Note HNO ID: [id number] Author: Ilir Mann APRN.CHILD PROTECTION SPECIALIST Service: ? Author Type: Nurse Compensation Associate Type: Anesthesia Procedure Notes Filed: 07/22/2023 2:09 PM Note Text: ANESTHESIOLOGY PROCEDURE NOTE Airway General Information Procedure Start Time/Medication Administration: 07/22/2023 2:07 PM Patient location during procedure: OR Timeout Performed Pre-procedure: timeout performed Consent Obtained: Yes Patient identity confirmed: arm band and patient Staffing Anesthesiologist: Enedina Solomon MD CHILD PROTECTION SPECIALIST: Ilir Mann APRN.CHILD PROTECTION SPECIALIST Indications and Patient Condition Indications for airway management: anesthesia Preoxygenated: yes anesthesia circuit Patient position: sniffing Method: asleep Cricoid Pressure: No Manual In-Line Stabilization: No Difficult Mask: No Final Airway Details Final airway type: supraglottic airway Number of attempts at approach: 1 Final Supraglottic Airway: i-gel Size 4 Seal Adequate: yes Failed airway: no Unrecognized esophageal intubation: no Airway not difficult SIGNATURE: Ilir Mann APRN.CHILD PROTECTION SPECIALIST PATIENT NAME: Lashell Segura DATE: July 22, 2023 TIME: 2:08 PM CSN: [id number] [facility] 07-22-2023 Note HNO ID: [id number] Author: Svitlana Landa APRN.CNP Service: Neurology General Author Type: Nurse Practitioner Type: Plan of Care Filed: 07/22/2023 1:50 PM Note Text: NEUROLOGY PLAN OF CARE NOTE Patient: Lashell Segura Date: July 22, 2023 Time: 1:48 PM BEM check up to ~ 13:35 on 07/22/2023 is negative for seizures. Last known EEG seizure at 20:16 on 07/21. Per EEG reader, PLEDs also appear less conspicuous. Recs as outlined in plan of care from earlier today. Svitlana Landa APRN-SLOT MACHINE KEY PERSON Department of Neurology Pager: [phone] July 22, 2023, 1:48 PM [facility] 07-22-2023 Note HNO ID: [id number] Author: Connor Servin MD Service: Neurosurgery Author Type: Physician Type: Progress Notes Filed: 07/22/2023 3:53 PM Note Text: SERVICE DATE: 07/22/2023 SERVICE TIME: 12:34 PM NEUROSURGERY SKULL BASE INPATIENT PROGRESS NOTE [place] [phone] for questions/concerns about this patient from 3PM through 6AM and on weekends. Hospital Day: 2 CC: confusion, speech difficulties INTERVAL HPI: is a 53 year old female who states she is overall feeling well. We discussed plans for bronchoscopy today. We discussed seizures seen on EEG last night and need for increase in Keppra. She states that her nicotine cravings have overall been controlled but endorses frustration with wanting to smoke and need to quit She is neurologically stable with no new deficits. Overnight events noted one non-clinical seizure. Objective PHYSICAL EXAM: GENERAL: A AND O x 3, awake and alert. Speech is Fluent, some paraphasic errors. Appears stated age, well built, in no apparent distress. PSYCHIATRIC: Mood and affect: Impulsive. SKIN: Inspection: No evidence of eythema, warmth No evidence of surgical incisions. CARDIOVASCULAR: Telemetry: normal sinus rhythm RESPIRATORY: unlabored breathing ABDOMEN: Soft and Non-tender NEUROLOGY: Motor: UE BICEPS TRICEPS DELTS Commercial Representative HI R 5/5 5/5 5/5 5/5 5/5 L 5/5 5/5 5/5 5/5 5/5 LE Hip Flex Knee Flex Knee Extend Plantarflex Dorsiflex EHL R 5/5 5/5 5/5 5/5 5/5 5/5 L 5/5 5/5 5/5 5/5 5/5 5/5 Sensory: intact.Gait: not assessed. There was no drift bilaterally on pronator drift testing. CRANIAL NERVES: Pupils: OD Right: 3 mm Reactive OS Left: 3 mm Reactive II Visual adam: are full to confrontation III, IV, EOM full V Facial sensation normal VII Normal strength VIII Normal bilaterally IX, X Normal, midline palatal rise XI Symmetric shrug, and head rotation XII Tongue midline, mobile Vitals: 07/21/23 2044 07/22/23 0146 07/22/23 0424 07/22/23 0930 BP: 108/68 97/52 101/63 98/81 Pulse: 77 77 75 69 Resp: 16 16 17 17 Temp: 36.6 ?C (97.9 ?F) 36.4 ?C (97.5 ?F) 36.6 ?C (97.9 ?F) 36.5 ?C (97.7 ?F) TempSrc: Oral Oral Oral Oral SpO2: 97% 94% 98% 96% Weight: Height: Intake AND Output Intake/Output Summary (Last 24 hours) at 07/22/2023 1226 Last data filed at 07/22/2023 1019 Gross per 24 hour Intake 550 ml Output -- Net 550 ml Drains: Lines, Drains, and Airways Line Duration Peripheral [facility] Short Right Forearm 18 Gauge -- days Peripheral 07/20/23 0200 [facility] Short Left Forearm 20 Gauge 2 days LABS: Na: Recent Labs 07/20/23 1423 07/19/23 2144 NA 138 138 1. Out of bed and ambulating: Yes Needs PT or OT Evaluation: No 2. Central line present? No 3. Continued need for urinary catheter? Not Applicable 4. Nutrition: PO- Yes. 5. Restraints No. 6. Last BM 07/20 Assessment AND Plan Active Hospital Problems as of 07/22/2023 Noted - Resolved POA Hospital * (Principal) Metastasis to brain (HCC) 07/20/2023 - Present Yes Current Assessment AND Plan Evaluated with MRI: 1cm left temporal lobe mass CT CAP: lingular mass + nodules/lymphadenopathy Anticipate GKRS treatment pending workup of lung mass Radiation consult Lung mass 07/21/2023 - Present Yes Current Assessment AND Plan Noted on OSH CTA CT chest with lingular soft tissue mass, multiple lung noduals and lymphadenopathy Pulmonary consult Bronchoscopy for biopsy today Breast nodule 07/21/2023 - Present Yes Current Assessment AND Plan Noted on CT CAP Mammogram Tobacco abuse 07/21/2023 - Present Yes Current Assessment AND Plan Smoking cessation education Nicotine patch Vasogenic brain edema (HCC) 07/21/2023 - Present Yes Current Assessment AND Plan Monitoring q4h neuro exams Decadron 4 mg BID At risk for seizures 07/21/2023 - Present Yes Current Assessment AND Plan Appreciate neurology recs and assistance EEG monitoring Treating with keppra 1.5g bid Seizure (HCC) 07/21/2023 - Present Unknown Current Assessment AND Plan Appreciate neurology recs and assistance EEG monitoring Treating with keppra 1.5g bid Medication and Non-Pharmacologic VTE Prophylaxis/Anticoagulants 07/20/23 0300 vte pharmacologic prophylaxis contraindicated (sc,wv) 07/20/23 030 pneumatic compression stockings ([place]) 07/20/23 030 activity - mobilize patient ([place]) VTE Prophylaxis: VTE prophylaxis appropriate Plan of care discussed with: Provider, RN, Patient SIGNATURE: Joi Garcia APRN.CNP PATIENT NAME: Lashell Segura DATE: July 22, 2023 TIME: 12:34 PM [facility] STAFF: TEACHING PHYSICIAN NOTE OF PERSONAL INVOLVEMENT IN CARE I have reviewed the progress note obtained and documented by the Resident and I personally participated in the lucero components. I have discussed the case and management of the patient's care w (more content not included)... [facility] 07-22-2023 Note HNO ID: [id number] Author: Svitlana Landa APRN.CNP Service: Neurology General Author Type: Nurse Practitioner Type: Plan of Care Filed: 07/22/2023 8:32 AM Note Text: NEUROLOGY PLAN OF CARE NOTE Patient: Lashell Segura Date: July 22, 2023 Time: 8:27 AM Interval Events: Preliminary BEM 07/21-07/22: Interictal: Continuous Slow, Lateralized, Left Hemisphere PLEDs, Lateralized, Left hemisphere maximum left fronto-temporal region Ictal: EEG Seizure, Regional, Left Fronto-temporal No Clinical Signs Impression: This bedside EEG was recorded from 0430 on 07/21/2023 until 0732 on 07/22/2023 and is suggestive of an acute/subacute cortical dysfunction in the left hemisphere with epileptogenicity arising from the left fronto-temporal region. There was one EEG seizure arising from the left fronto-temporal region on 07/21/2023 at 2016 lasting 3 minutes with no apparent clinical signs. We recommend: One non-clinical seizure on BEM on 07/21 arising from area of known lesion, interictal with potential epileptogenicity. Would increase Keppra as below and continue to monitor on BEM. Discussed with primary team. Recommendations: -- Increase Keppra to 1500 mg BID, first dose this AM -- Continue BEM -- Next line ASM: likely Vimpat ([place] 160) -- Seizure rescue: Ativan 2 mg IV for GTC > 3 min or 3 or more such seizures in 8 hr time frame -- [place] [phone] if Ativan is given for seizures -- Epilepsy follow up requested -- Please include attached seizure precautions in the patient's discharge instructions. These were discussed with the patient, including that she SHOULD NOT DRIVE until cleared by a provider and the risk of suicidality in all seizure medications. -- Outpatient epilepsy follow up requested Observe seizure precautions, which I explained to the patient in detail. These include; no driving until cleared by state protocol, climbing to heights, bathing unattended, swimming, working or playing near open source of heat, or holding small children unsupervised. Generally avoid circumstances where you would potential harm yourself or others if you were to lose consciousness. No driving until cleared by state protocol (please see http://www.epilepsyfoundation.org /resources/[place]. cfm for more information). SEIZURE SAFETY DURING SLEEP: Always take anti-epileptic medications as prescribed by your doctor. Objects near the bed may cause injury if someone has a seizure is prone to falling out of bed. Move heavy furniture, floor lamps, night stands and other dangerous objects away from the bed. Mattresses and pillows should be firm and not soft. All stuffed animals, toys and other objects should be removed from the bed. Blankets can be layered but should be thin, down comforters may be too soft. Keep the bed as low to the ground as possible. Some patients with night time seizures may sleep with their mattress on the floor. Others may pad the floor with mats (such as exercise mats used in workout facilities) to pad the floor. During sleep, keep the bedroom door cracked open so someone can hear if you are having a seizure. Never lock the bedroom door. Some people choose to use baby monitors to observe for seizures at night. FIRST- AID MEASURES FOR GRAND MAL SEIZURES If the patient has a grand mal seizure: Do not panic, call for assistance if needed. Lower patient to the ground and loosen any tight clothing. Place patient in a semi-prone position so any saliva or vomitus will easily drain out of the mouth. Do not force any object or your fingers into the mouth. You may suffer an injury or break teeth. Do not panic; time the seizure so you know how long it lasted (most grand mal seizures are no more than 1 or 2 minutes long). If the seizure is continuing longer than 5 minutes, call the ambulance for transportation to the nearest Emergency Room. Call your doctor if you feel that the severity or number of seizures has changed from baseline. After a grand mal seizure, patients are very sleepy and tired for several minutes or even a couple of hours. They may also complain of headache, nausea and may vomit. If the patient has several grand mal seizures without waking up in-between, please notify your doctor. SEIZURE AND GENERAL PRECAUTIONS The patient should not climb to high places, such as climbing on the roof, trees or mountain climbing when a seizure may produce a serious fall and injury. When in or near water, the patient should be supervised by a responsible adult, for example, during tub baths, swimming, boating or fishing. Sleeping face down in a prone position (on the stomach) should be avoided. Do not discontinue seizure medication on your own as this may lead to a severe seizure. Please contact the office for refills 2 weeks before your medicat (more content not included)... [facility] 07-21-2023 Note HNO ID: [id number] Author: Kristi Gibson RN Service: Care Management Author Type: Registered Nurse Type: Care Mgt Initial Assessment Filed: 07/21/2023 3:18 PM Note Text: CARE MANAGEMENT: ASSESSMENT AND DISCHARGE PLAN SERVICE DATE: July 21, 2023 SERVICE TIME: 3:13 PM PCP: Martine Marrufo APRN.CNP Primary Contact: Extended Emergency Contact Information Primary Emergency Contact: Nathanael Segura Mobile Relation: Spouse Secondary Emergency Contact: Marilee Marlow Mobile Relation: Daughter Admission Status: Inpatient Insurance Provider: MMO SUPERMED PPO Discharge Planning requested by: Potential Transition Plans Home Advance Directives Current Advance Directive: None It Security Specialist Attempted to Assist with AD Completion: Yes Action: Education Provided Current Living Arrangements and Support Lives with: Spouse/significant other Type of Residence: Private Residence (Apartment or Condo) Does the patient have to climb stairs at home?: stairs within the home;stairs outside the home;Yes (Patient has steps in the inside of the house. No need to climb steps because everything that the patient needs is on the 1st level. Patient has 3 steps outside the home.) Support: Family members, Spouse/significant other How do you manage to accomplish the following: Independent: Ambulation;Bathe/Shower;Dress;Janelle ls/Meal Prep;Going to the bathroom;Medication Management Current Services/Equipment Current Post-Acute Service(s): None Discharge Planning Patient Goal(s): Sandy of Choice Explained: Sandy of Choice Given: No Reason Not Given: No placements necessary Are you interested in bedside delivery of your medications? Yes Discharge Planning Participant(s): Patient/Family Comments: Caregiver Assessment: Caregiver is ready, willing and able to meet the patient's needs as recommended by the inter-professional team: No Caregiver needed Transport at Discharge: Transportation Arrangements: Car Needs Prior to Discharge: Needs Prior to Discharge: To Be Determined Post-Acute Discharge Plan: DC TBD. Per HANDP, patient presented to an OSH ED on 07/19 for aphasia. Patient was transferred to [facility] for neurosurgical evaluation. Pulm/Critical Care consulted. No skilled needs identified. Daughter-Marilee to transport. SIGNATURE: Kristi Gibson RN PATIENT NAME: Lashell Segura DATE: July 21, 2023 TIME: 3:13 PM CONTACT #: [phone] [facility] 07-21-2023 Note HNO ID: [id number] Author: Connor Servin MD Service: Neurosurgery Author Type: Physician Type: Progress Notes Filed: 07/21/2023 3:58 PM Note Text: SERVICE DATE: 07/21/2023 SERVICE TIME: 8:49 AM NEUROSURGERY SKULL BASE INPATIENT PROGRESS NOTE [place] [phone] for questions/concerns about this patient from 3PM through 6AM and on weekends. Hospital Day: 2 CC: confusion, speech difficulties INTERVAL HPI: is a 53 year old female who reports mild headache. She reports frustration with EEG leads and not being able to go outside to smoke. She is neurologically stable with no new deficits. Overnight events noted were EEG prelim +PLEDS. Objective PHYSICAL EXAM: GENERAL: A AND O x 3, awake and alert. Speech is Fluent, some paraphasic errors. Appears stated age, well built, in no apparent distress. PSYCHIATRIC: Mood and affect: Impulsive. SKIN: Inspection: No evidence of eythema, warmth No evidence of surgical incisions. CARDIOVASCULAR: Telemetry: normal sinus rhythm RESPIRATORY: unlabored breathing ABDOMEN: Soft and Non-tender NEUROLOGY: Motor: UE BICEPS TRICEPS DELTS Commercial Representative HI R 5/5 5/5 5/5 5/5 5/5 L 5/5 5/5 5/5 5/5 5/5 LE Hip Flex Knee Flex Knee Extend Plantarflex Dorsiflex EHL R 5/5 5/5 5/5 5/5 5/5 5/5 L 5/5 5/5 5/5 5/5 5/5 5/5 Sensory: intact.Gait: not assessed. There was no drift bilaterally on pronator drift testing. CRANIAL NERVES: Pupils: OD Right: 3 mm Reactive OS Left: 3 mm Reactive II Visual adam: are full to confrontation III, IV, EOM full V Facial sensation normal VII Normal strength VIII Normal bilaterally IX, X Normal, midline palatal rise XI Symmetric shrug, and head rotation XII Tongue midline, mobile Vitals: 07/20/23 2140 07/21/23 0135 07/21/23 0516 07/21/23 0959 BP: 102/56 97/61 93/54 83/51 Pulse: 82 79 91 Resp: 16 16 16 Temp: 36.5 ?C (97.7 ?F) 36.6 ?C (97.9 ?F) 36.9 ?C (98.4 ?F) TempSrc: Oral Oral Oral SpO2: 93% 94% 98% Weight: Height: Intake AND Output No intake or output data in the 24 hours ending 07/21/23 1100 Drains: Lines, Drains, and Airways Line Duration Peripheral [facility] Short Right Forearm 18 Gauge -- days Peripheral 07/20/23 0200 [facility] Short Left Forearm 20 Gauge 1 day LABS: Na: Recent Labs 07/20/23 1423 07/19/23 2144 NA 138 138 1. Out of bed and ambulating: Yes Needs PT or OT Evaluation: No 2. Central line present? No 3. Continued need for urinary catheter? Not Applicable 4. Nutrition: PO- Yes. 5. Restraints No. 6. Last BM 07/20 Assessment AND Plan * Metastasis to brain (HCC)- (present on admission) Evaluated with MRI: 1cm left temporal lobe mass CT CAP: lingular mass + nodules/lymphadenopathy Anticipate GKRS treatment pending workup of lung mass At risk for seizures- (present on admission) Appreciate neurology recs and assistance EEG monitoring Treating with keppra 1g bid Vasogenic brain edema (HCC)- (present on admission) Monitoring q4h neuro exams, consider decadron pending staff review of CT CAP Tobacco abuse- (present on admission) Smoking cessation education Nicotine patch Breast nodule- (present on admission) Noted on CT CAP Mammogram Mass of lung- (present on admission) Noted on OSH CTA CT chest with lingular soft tissue mass, multiple lung noduals and lymphadenopathy Pulmonary consult Medication and Non-Pharmacologic VTE Prophylaxis/Anticoagulants 07/20/23 030 vte pharmacologic prophylaxis contraindicated ([place]) 07/20/23 030 pneumatic compression stockings ([place]) 07/20/23 030 activity - mobilize patient ([place]v) VTE Prophylaxis: VTE prophylaxis appropriate Plan of care discussed with: Provider, RN, Patient SIGNATURE: Diane Vazquez PA-C PATIENT NAME: Lashell Segura DATE: July 21, 2023 TIME: 11:19 AM [facility] STAFF: TEACHING PHYSICIAN NOTE OF PERSONAL INVOLVEMENT IN CARE I have reviewed the progress note obtained and documented by the Resident and I personally participated in the lucero components. I have discussed the case and management of the patient's care with the Resident. The following comments revise or confirm relevant lucero components of the Resident's note. IMPRESSION: as above. Neurologically improved. On per neurology. Plan for bronch tomorrow.likely discharge after that if no seizures and Gamma knife radiosurgery on Friday. Will need radiation oncology consult after bronch as well. PLAN: as above. Bronch tomorrow. Rad onc consult after bronch. Can be discharged if no seizures and after bronch and rad onc consult is done. Steroid for brain edema. discussed Connor Servin MD Beeper Number: [id number] Date and Time of Service: July 21, 2023 3:50 PM [facility] 07-21-2023 Note HNO ID: [id number] Author: Phi Huston RT(R) Service: Radiology Author Type: Technologist Type: Progress Notes Filed: 07/21/2023 8:05 AM Note Text: Radiology Service Progress Note DATE OF SERVICE: July 21, 2023 TIME: 8:05 AM PATIENT IDENTITY VERIFICATION COMPLETED USING TWO (2) STANDARD IDENTIFIERS: Name and Date of confirmed by patient verbally and Name and Date of confirmed by identification band. FALL SCREENING: Has the patient had 2 falls in the last year or 1 fall with injury or currently using an Ambulatory Assistive Device (Walker, Cane, Wheelchair, Crutches, etc.)? Inpatient: Screened on floor PATIENT GENDER DATA: Female. status: : No status: NO. PATIENT RELEVANT IMPLANT DATA REVIEWED: Yes ALLERGIES: Reviewed and unchanged CONTRAST ALLERGY: NO. EXAM: CT -CONTRAST INDUCED NEPHROPATHY RISK FACTORS: Not applicable CREATININE: Creatinine Date Value Ref Range Status 07/20/2023 0.59 0.58 - 0.96 mg/dL Final 07/19/2023 0.82 0.58 - 0.96 mg/dL Final Estimated Glomerular Filtration Rate Date Value Ref Range Status 07/20/2023 107 >=60 mL/min/1.73m? Final Comment: Estimated Glomerular Filtration Rate (eGFR) is calculated using the 2020 CKD-EPI creatinine equation. This equation utilizes serum creatinine, sex, and age as parameters. The creatinine assay has traceable calibration to isotope dilution-mass spectrometry. Refer to KDIGO guidelines for clinical interpretation. In patients with unstable renal function, e.g. those with acute kidney injury, the eGFR may not accurately reflect actual GFR. P.O.C.T. RESULTS: POC done: Yes, See Lab Tab July 21, 2023 TREATMENT: N/A PERIPHERAL IV DATA: Inpatient - refer to [facility] documentation RADIOLOGY DEPARTMENT: CT; Exam(s) Completed: Chest Abdomen Pelvis SIGNATURE: RT Tavo(R) PATIENT NAME: Lashell Segura DATE: July 21, 2023 TIME: 8:05 AM [facility] 07-20-2023 Note HNO ID: [id number] Author: Zamzam Bateman RN Service: Nursing Author Type: Registered Nurse Type: Progress Notes Filed: 07/20/2023 9:57 AM Note Text: Radiology Service Progress Note DATE OF SERVICE: July 20, 2023 TIME: 9:57 AM PATIENT WEIGHT: 181LBS PATIENT IDENTITY VERIFICATION COMPLETED USING TWO (2) STANDARD IDENTIFIERS: Name and Date of confirmed by patient verbally. FALL SCREENING: Has the patient had 2 falls in the last year or 1 fall with injury or currently using an Ambulatory Assistive Device (Walker, Cane, Wheelchair, Crutches, etc.)? Inpatient: Screened on floor PATIENT GENDER DATA: Female. status: : No status: NO. ALLERGIES: Reviewed and unchanged CONTRAST ALLERGY: No EXAM: MRI - CONTRAST TYPE: GROUP II IV SITE: Inpatient - refer to [facility] documentation IV SITE APPEARANCE: Clean,Dry and Intact SIGNATURE: Zamzam Bateman RN PATIENT NAME: Lashell Segura DATE: July 20, 2023 TIME: 9:57 AM [facility] 07-20-2023 Note HNO ID: [id number] Author: Sara James, RT(R) Service: ? Author Type: Technologist Type: Progress Notes Filed: 07/19/2023 10:14 PM Note Text: Radiology Service Progress Note PATIENT NAME: Lashell Segura DATE OF SERVICE: July 19, 2023 TIME: 10:13 PM PATIENT IDENTITY VERIFICATION COMPLETED USING TWO (2) IDENTIFIERS: Name and Date of confirmed by patient verbally. FALL SCREENING: Has the patient had 2 falls in the last year or 1 fall with injury or currently using an Ambulatory Assistive Device (Walker, Cane, Wheelchair, Crutches, etc.)? Emergency Room Patient: Screened in ED PATIENT GENDER DATA: Female. status: : No status: NO. PATIENT RELEVANT IMPLANT DATA REVIEWED: Not Applicable RADIOLOGY DEPARTMENT: General X-ray: Exam(s) Completed: Chest X-Ray PERIPHERAL IV DATA: Not applicable SIGNED BY: RT Naveed(R) July 19, 2023 10:13 PM [facility] 07-20-2023 Note HNO ID: [id number] Author: Sudeep Simmons MD Service: ? Author Type: Physician Type: Progress Notes Filed: 07/19/2023 10:13 PM Note Text: TELESTROKE DOCUMENTATION Name: Lashell Segura : 1970 Referring Site: [place] Referring Provider: Dr Bateman Last Known Well (Date/Time): 07/19/232004 Neurologist Callback (Date/Time): 07/19/232151 Chief Complaint: aphasia HPI: 53 year old female,no medications. Acute onset fluent aphasia onset between 2004 and 2024 noted by family In ED, fluent aphasia NIHSS 6. Current Anticoagulant Not Applicable NIHSS Telestroke Type - Patient location (ED or Inpatient): ED - Telephone Site Reported NIHSS: [address] Imaging reviewed, POSITIVE abnormal finding Abnormal Finding Details (Specify): Vasogenic edema in Left hemisphre involving L temporal and parietal lobe. CTA Imaging reviewed, NO large vessel occlusion or severe stenosis seen Summary Stroke not suspected/Other (Specify) - the risks of IV Thrombolysis outweigh the benefits of treatment The pattern of hypodensity in left hemisphere is most consistent with underlying neoplasm, rather than infarct (acute or chronic). Despite the acuteness of onset, stroke seems unlikely given the CT finding. Potential Candidate for Endovascular Therapy: No - Negative for evidence of large vessel occlusion Disposition/Billing (Physician is not in the same physical location as the patient) The patient will remain at the referring institution for further evaluation and management Telephone Only: Minutes spent reviewing pertinent diagnostic data and discussing patient care with the referring physician: 20 More than 50 percent of the encounter was spent on coordinating care of the patient during a telestroke. Thank you for contacting the [facility]. I appreciate the opportunity for allowing me to participate in Lashell Segura's care. Please feel free to contact me and/or the [facility] at any time if you have any further questions or need additional assistance. Sudeep Simmons MD July 19, 2023 10:11 PM [facility] 07-19-2023 History of Present illness Narrative Radiology Service Progress Note PATIENT NAME: Lashell Segura DATE OF SERVICE: July 19, 2023 TIME: 10:13 PM PATIENT IDENTITY VERIFICATION COMPLETED USING TWO (2) IDENTIFIERS: Name and Date of confirmed by patient verbally. FALL SCREENING: Has the patient had 2 falls in the last year or 1 fall with injury or currently using an Ambulatory Assistive Device (Walker, Cane, Wheelchair, Crutches, etc.)? Emergency Room Patient: Screened in ED PATIENT GENDER DATA: Female. status: : No status: NO. PATIENT RELEVANT IMPLANT DATA REVIEWED: Not Applicable RADIOLOGY DEPARTMENT: General X-ray: Exam(s) Completed: Chest X-Ray PERIPHERAL IV DATA: Not applicable SIGNED BY: RT Naveed(R) July 19, 2023 10:13 PM documented in this encounter [facility] 07-19-2023 History of Present illness Narrative TELESTROKE DOCUMENTATION Name: Lashell Segura : 1970 Referring Site: [place] Referring Provider: Dr Bateman Last Known Well (Date/Time): 07/19/232004 Neurologist Callback (Date/Time): 07/19/232151 Chief Complaint: aphasia HPI: 53 year old female,no medications. Acute onset fluent aphasia onset between 2004 and 2024 noted by family In ED, fluent aphasia NIHSS 6. Current Anticoagulant Not Applicable NIHSS Telestroke Type - Patient location (ED or Inpatient): ED - Telephone Site Reported NIHSS: [address] Imaging reviewed, POSITIVE abnormal finding Abnormal Finding Details (Specify): Vasogenic edema in Left hemisphre involving L temporal and parietal lobe. CTA Imaging reviewed, NO large vessel occlusion or severe stenosis seen Summary Stroke not suspected/Other (Specify) - the risks of IV Thrombolysis outweigh the benefits of treatment The pattern of hypodensity in left hemisphere is most consistent with underlying neoplasm, rather than infarct (acute or chronic). Despite the acuteness of onset, stroke seems unlikely given the CT finding. Potential Candidate for Endovascular Therapy: No - Negative for evidence of large vessel occlusion Disposition/Billing (Physician is not in the same physical location as the patient) The patient will remain at the referring institution for further evaluation and management Telephone Only: Minutes spent reviewing pertinent diagnostic data and discussing patient care with the referring physician: 20 More than 50 percent of the encounter was spent on coordinating care of the patient during a telestroke. Thank you for contacting the [facility]. I appreciate the opportunity for allowing me to participate in Lashell Segura's care. Please feel free to contact me and/or the [facility] at any time if you have any further questions or need additional assistance. Sudeep Simmons MD July 19, 2023 10:11 PM documented in this encounter [facility] Evaluation note Diagnosis Onset Date Wellness examination acute 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 [facility] Diagnosis 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 [facility] Diagnosis Neoplasm of lung- Primary Neoplasm of unspecified nature of respiratory system Cancer of trachea, bronchus, and lung (HCC) Malignant neoplasm of other parts of bronchus or lung [facility] Diagnosis Secondary malignant neoplasm of brain (HCC)- Primary 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 Episodic cluster headache [facility] Diagnosis 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 [facility] Diagnosis Neoplasm of lung Neoplasm of unspecified nature of respiratory system [facility] Diagnosis Neoplasm of lung- Primary Neoplasm of unspecified nature of respiratory system 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 [facility] Diagnosis Intra-abdominal and pelvic swelling, mass and lump, unspecified site Malignant neoplasm of unspecified part of unspecified bronchus or lung (HCC) [facility] Diagnosis Focal epilepsy (HCC) Localization-related (focal) (partial) epilepsy and epileptic syndromes with simple partial seizures, without mention of intractable epilepsy [facility] Diagnosis Neoplasm of lung Neoplasm of unspecified nature of respiratory system [facility] Diagnosis Malignant neoplasm of unspecified part of unspecified bronchus or lung (HCC)- Primary [facility] Diagnosis History of breast problem- Primary [facility] Diagnosis Neoplasm of lung Neoplasm of unspecified nature of respiratory system [facility] Diagnosis Neoplasm of lung- Primary Neoplasm of unspecified nature of respiratory system Encounter for antineoplastic chemotherapy and immunotherapy Encounter for antineoplastic chemotherapy [facility] Diagnosis Neoplasm of lung- Primary Neoplasm of unspecified nature of respiratory system 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 [facility] Diagnosis History of breast problem [facility] Diagnosis History of breast problem [facility] Diagnosis Neoplasm of lung Neoplasm of unspecified nature of respiratory system 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 [facility] Diagnosis Neoplasm of lung- Primary Neoplasm of unspecified nature of respiratory system 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 [facility] Diagnosis Malignant neoplasm of unspecified part of unspecified bronchus or lung (HCC) [facility] Diagnosis Focal epilepsy (HCC)- Primary Localization-related (focal) (partial) epilepsy and epileptic syndromes with simple partial seizures, without mention of intractable epilepsy 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 [facility] Diagnosis Neoplasm of lung Neoplasm of unspecified nature of respiratory system [facility] Diagnosis Malignant neoplasm of unspecified part of unspecified bronchus or lung (HCC)- Primary Malignant neoplasm of upper-outer quadrant of right breast in female, estrogen receptor positive (HCC) [facility] Diagnosis Pre-op evaluation- Primary Preoperative examination, unspecified Seizure (HCC) Other convulsions Vasogenic brain edema (HCC) Cerebral edema Tobacco abuse Tobacco use disorder Neoplasm of lung Neoplasm of unspecified nature of respiratory system 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 CT chest done 11/25, below. Noted to have a partial lung collapse. Symptoms are stable, chronic mora, some pain with deep inspiration. CXR today. IMPRESSION: 1. Treated malignancy within the inferior LEFT upper lobe as well as lingula demonstrates minimal interval decrease in size with reestablishment of patency of the previously stenotic/occluded lingular bronchus and its segmental/subsegmental branches. Findings compatible with favorable treatment response. Stable adjacent pleural thickening with no osseous destruction. 2. Mildly enlarged RIGHT hilar lymph node, confluent opacity in the LEFT perihilar region and additional subcentimeter sized mediastinal lymph nodes are unchanged. 3. Interval biopsy of RIGHT breast nodule, pathology consistent with malignancy. 4. Stable scattered solid, part solid and groundglass attenuation nodules, likely lesions along the spectrum of adenocarcinoma. * Assessment & Plan Note - Saba Cox APRN.CNP - 12/29/2023 12:10 PM EDT Associated Problem(s): Tobacco abuse Assessment: Smokes 2cigs/day. Advised cessation. No smoking DOS. * Assessment & Plan Note - Saba Cox APRN.CNP - 12/29/2023 12:10 PM EDT Associated Problem(s): Vasogenic brain edema (HCC) Assessment: noted in prior scans, metastasis. No shunts or interventions done. Follows neurology. MRI 09/26/23: Impression IMPRESSION: Interval decrease in size of left temporal metastatic lesion and associated vasogenic edema since 07/28/2023 and 07/20/2023. No evidence of neovascularity. No new lesions are identified. * Assessment & Plan Note - Saba Cox APRN.CNP - 12/29/2023 12:09 PM EDT Associated Problem(s): Seizure (HCC) Assessment: follows with neurology Compliant on rx. Reports last seizure occurred in June when brain mets and cancer was found. 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 [facility] Diagnosis Malignant neoplasm of upper-outer quadrant of right breast in female, estrogen receptor positive (HCC)- Primary Postop check Follow-up examination, following unspecified surgery [facility] Diagnosis Neoplasm of lung- Primary Neoplasm of unspecified nature of respiratory system 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 [facility] Diagnosis Adenocarcinoma of lung, stage 4, unspecified laterality (HCC)- Primary Malignant neoplasm of central portion of right breast in female, estrogen receptor positive (HCC) [facility] Diagnosis 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 Neoplasm of lung Neoplasm of unspecified nature of respiratory system [facility] Diagnosis Malignant neoplasm of upper-outer quadrant of right breast in female, estrogen receptor positive (HCC) [facility] Diagnosis S/P lumpectomy of breast- Primary Other postprocedural status At risk for lymphedema Other specified conditions influencing health status [facility] Diagnosis At risk for lymphedema- Primary Other specified conditions influencing health status S/P lumpectomy of breast Other postprocedural status [facility]* Diagnosis Malignant neoplasm of unspecified part of unspecified bronchus or lung (HCC) [facility] Diagnosis Adenocarcinoma of lung, stage 4, unspecified laterality (HCC) [facility] Diagnosis 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 Adenocarcinoma of lung, stage 4, unspecified laterality (HCC) Neoplasm of lung Neoplasm of unspecified nature of respiratory system [facility] Diagnosis Adenocarcinoma of lung, stage 4, unspecified laterality (HCC)- Primary [facility]* Diagnosis Swelling of limb- Primary [facility]* Diagnosis Focal epilepsy (HCC)- Primary Localization-related (focal) (partial) epilepsy and epileptic syndromes with simple partial seizures, without mention of intractable epilepsy [facility] Diagnosis Focal epilepsy (HCC) Localization-related (focal) (partial) epilepsy and epileptic syndromes with simple partial seizures, without mention of intractable epilepsy [facility] Diagnosis Encounter for antineoplastic chemotherapy and immunotherapy- Primary Encounter for antineoplastic chemotherapy Adenocarcinoma of lung, stage 4, unspecified laterality (HCC) [facility] Diagnosis Adenocarcinoma of lung, stage 4, unspecified laterality (HCC) [facility] Diagnosis 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 Neoplasm of lung Neoplasm of unspecified nature of respiratory system [facility]* Diagnosis Adenocarcinoma of lung, stage 4, unspecified laterality (HCC) [facility] Diagnosis Encounter for antineoplastic chemotherapy and immunotherapy- Primary Encounter for antineoplastic chemotherapy Adenocarcinoma of lung, stage 4, unspecified laterality (HCC) Weight loss Loss of weight [facility] Diagnosis 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 Neoplasm of lung Neoplasm of unspecified nature of respiratory system [facility] Diagnosis 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 Other diseases of trachea and bronchus Lung mass Swelling, mass, or lump in chest Breast nodule Other (abnormal) findings on radiological examination of breast Tobacco abuse Tobacco use disorder Vasogenic brain edema (HCC) Cerebral edema Seizure (HCC) Other convulsions Pre-op evaluation- Primary Preoperative examination, unspecified Seizure (HCC) Other convulsions Vasogenic brain edema (HCC) Cerebral edema Tobacco abuse Tobacco use disorder Neoplasm of lung Neoplasm of unspecified nature of respiratory system 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 Neoplasm of lung Neoplasm of unspecified nature of respiratory system [facility] Diagnosis 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 Other diseases of trachea and bronchus Lung mass Swelling, mass, or lump in chest Breast nodule Other (abnormal) findings on radiological examination of breast Tobacco abuse Tobacco use disorder Vasogenic brain edema (HCC) Cerebral edema Seizure (HCC) Other convulsions Pre-op evaluation- Primary Preoperative examination, unspecified Seizure (HCC) Other convulsions Vasogenic brain edema (HCC) Cerebral edema Tobacco abuse Tobacco use disorder Neoplasm of lung Neoplasm of unspecified nature of respiratory system 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, stage 4, unspecified laterality (HCC) [facility] Diagnosis 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 Other diseases of trachea and bronchus Lung mass Swelling, mass, or lump in chest Breast nodule Other (abnormal) findings on radiological examination of breast Tobacco abuse Tobacco use disorder Vasogenic brain edema (HCC) Cerebral edema Seizure (HCC) Other convulsions Pre-op evaluation- Primary Preoperative examination, unspecified Seizure (HCC) Other convulsions Vasogenic brain edema (HCC) Cerebral edema Tobacco abuse Tobacco use disorder Neoplasm of lung Neoplasm of unspecified nature of respiratory system 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 [facility] 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 Other diseases of trachea and bronchus Lung mass Swelling, mass, or lump in chest Breast nodule Other (abnormal) findings on radiological examination of breast Tobacco abuse Tobacco use disorder Vasogenic brain edema (HCC) Cerebral edema Seizure (HCC) Other convulsions Pre-op evaluation- Primary Preoperative examination, unspecified Seizure (HCC) Other convulsions Vasogenic brain edema (HCC) Cerebral edema Tobacco abuse Tobacco use disorder Neoplasm of lung Neoplasm of unspecified nature of respiratory system 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 [facility] Diagnosis 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 Other diseases of trachea and bronchus Lung mass Swelling, mass, or lump in chest Breast nodule Other (abnormal) findings on radiological examination of breast Tobacco abuse Tobacco use disorder Vasogenic brain edema (HCC) Cerebral edema Seizure (HCC) Other convulsions Pre-op evaluation- Primary Preoperative examination, unspecified Seizure (HCC) Other convulsions Vasogenic brain edema (HCC) Cerebral edema Tobacco abuse Tobacco use disorder Neoplasm of lung Neoplasm of unspecified nature of respiratory system 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, stage 4, unspecified laterality (HCC) [facility] Diagnosis 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 Other diseases of trachea and bronchus Lung mass Swelling, mass, or lump in chest Breast nodule Other (abnormal) findings on radiological examination of breast Tobacco abuse Tobacco use disorder Vasogenic brain edema (HCC) Cerebral edema Seizure (HCC) Other convulsions Pre-op evaluation- Primary Preoperative examination, unspecified Seizure (HCC) Other convulsions Vasogenic brain edema (HCC) Cerebral edema Tobacco abuse Tobacco use disorder Neoplasm of lung Neoplasm of unspecified nature of respiratory system 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, stage 4, unspecified laterality (HCC)- Primary [facility] Diagnosis 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 Other diseases of trachea and bronchus Lung mass Swelling, mass, or lump in chest Breast nodule Other (abnormal) findings on radiological examination of breast Tobacco abuse Tobacco use disorder Vasogenic brain edema (HCC) Cerebral edema Seizure (HCC) Other convulsions Pre-op evaluation- Primary Preoperative examination, unspecified Seizure (HCC) Other convulsions Vasogenic brain edema (HCC) Cerebral edema Tobacco abuse Tobacco use disorder Neoplasm of lung Neoplasm of unspecified nature of respiratory system 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 Neoplasm of lung Neoplasm of unspecified nature of respiratory system [facility] Diagnosis 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 Other diseases of trachea and bronchus Lung mass Swelling, mass, or lump in chest Breast nodule Other (abnormal) findings on radiological examination of breast Tobacco abuse Tobacco use disorder Vasogenic brain edema (HCC) Cerebral edema Seizure (HCC) Other convulsions Pre-op evaluation- Primary Preoperative examination, unspecified Seizure (HCC) Other convulsions Vasogenic brain edema (HCC) Cerebral edema Tobacco abuse Tobacco use disorder Neoplasm of lung Neoplasm of unspecified nature of respiratory system 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 Neoplasm of lung Neoplasm of unspecified nature of respiratory system [facility] Diagnosis 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 Other diseases of trachea and bronchus Lung mass Swelling, mass, or lump in chest Breast nodule Other (abnormal) findings on radiological examination of breast Tobacco abuse Tobacco use disorder Vasogenic brain edema (HCC) Cerebral edema At risk for seizures Other specified conditions influencing health status Seizure (HCC) Other convulsions Pre-op evaluation- Primary Preoperative examination, unspecified Seizure (HCC) Other convulsions Vasogenic brain edema (HCC) Cerebral edema Tobacco abuse Tobacco use disorder Neoplasm of lung Neoplasm of unspecified nature of respiratory system 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, estrogen receptor positive (HCC) [facility] 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 Other diseases of trachea and bronchus Lung mass Swelling, mass, or lump in chest Breast nodule Other (abnormal) findings on radiological examination of breast Tobacco abuse Tobacco use disorder Vasogenic brain edema (HCC) Cerebral edema At risk for seizures Other specified conditions influencing health status Seizure (HCC) Other convulsions Malignant neoplasm of upper-outer quadrant of right breast in female, estrogen receptor positive (HCC) Pre-op evaluation- Primary Preoperative examination, unspecified Seizure (HCC) Other convulsions Vasogenic brain edema (HCC) Cerebral edema Tobacco abuse Tobacco use disorder Neoplasm of lung Neoplasm of unspecified nature of respiratory system 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 Other diseases of trachea and bronchus Lung mass Swelling, mass, or lump in chest Breast nodule Other (abnormal) findings on radiological examination of breast Tobacco abuse Tobacco use disorder Vasogenic brain edema (HCC) Cerebral edema At risk for seizures Other specified conditions influencing health status Seizure (HCC) Other convulsions Pre-op evaluation- Primary Preoperative examination, unspecified Seizure (HCC) Other convulsions Vasogenic brain edema (HCC) Cerebral edema Tobacco abuse Tobacco use disorder Neoplasm of lung Neoplasm of unspecified nature of respiratory system 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 Pre-op evaluation Preoperative examination, unspecified Seizure (HCC) Other convulsions Vasogenic brain edema (HCC) Cerebral edema Tobacco abuse Tobacco use disorder Neoplasm of lung Neoplasm of unspecified nature of respiratory system [facility] 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 Other diseases of trachea and bronchus Lung mass Swelling, mass, or lump in chest Breast nodule Other (abnormal) findings on radiological examination of breast Tobacco abuse Tobacco use disorder Vasogenic brain edema (HCC) Cerebral edema Seizure (HCC) Other convulsions Pre-op evaluation- Primary Preoperative examination, unspecified Seizure (HCC) Other convulsions Vasogenic brain edema (HCC) Cerebral edema Tobacco abuse Tobacco use disorder Neoplasm of lung Neoplasm of unspecified nature of respiratory system 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, stage 4, unspecified laterality (HCC) [facility] Diagnosis 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 Other diseases of trachea and bronchus Lung mass Swelling, mass, or lump in chest Breast nodule Other (abnormal) findings on radiological examination of breast Tobacco abuse Tobacco use disorder Vasogenic brain edema (HCC) Cerebral edema Seizure (HCC) Other convulsions Pre-op evaluation- Primary Preoperative examination, unspecified Seizure (HCC) Other convulsions Vasogenic brain edema (HCC) Cerebral edema Tobacco abuse Tobacco use disorder Neoplasm of lung Neoplasm of unspecified nature of respiratory system 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, stage 4, unspecified laterality (HCC)- Primary Encounter for antineoplastic chemotherapy and immunotherapy Encounter for antineoplastic chemotherapy Acute maxillary sinusitis, recurrence not specified [facility] Diagnosis 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 Other diseases of trachea and bronchus Lung mass Swelling, mass, or lump in chest Breast nodule Other (abnormal) findings on radiological examination of breast Tobacco abuse Tobacco use disorder Vasogenic brain edema (HCC) Cerebral edema Seizure (HCC) Other convulsions Pre-op evaluation- Primary Preoperative examination, unspecified Seizure (HCC) Other convulsions Vasogenic brain edema (HCC) Cerebral edema Tobacco abuse Tobacco use disorder Neoplasm of lung Neoplasm of unspecified nature of respiratory system 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 Encounter for antineoplastic chemotherapy- Primary 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 Neoplasm of lung Neoplasm of unspecified nature of respiratory system [facility] Malignant neoplasm of unspecified part of unspecified bronchus or lung (HCC)- Primary [facility] Diagnosis 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 Other diseases of trachea and bronchus Lung mass Swelling, mass, or lump in chest Breast nodule Other (abnormal) findings on radiological examination of breast Tobacco abuse Tobacco use disorder Vasogenic brain edema (HCC) Cerebral edema Seizure (HCC) Other convulsions Pre-op evaluation- Primary Preoperative examination, unspecified Seizure (HCC) Other convulsions Vasogenic brain edema (HCC) Cerebral edema Tobacco abuse Tobacco use disorder Neoplasm of lung Neoplasm of unspecified nature of respiratory system 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, stage 4, unspecified laterality (HCC) [facility] Diagnosis 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 Other diseases of trachea and bronchus Lung mass Swelling, mass, or lump in chest Breast nodule Other (abnormal) findings on radiological examination of breast Tobacco abuse Tobacco use disorder Vasogenic brain edema (HCC) Cerebral edema Seizure (HCC) Other convulsions Pre-op evaluation- Primary Preoperative examination, unspecified Seizure (HCC) Other convulsions Vasogenic brain edema (HCC) Cerebral edema Tobacco abuse Tobacco use disorder Neoplasm of lung Neoplasm of unspecified nature of respiratory system 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, stage 4, unspecified laterality (HCC) [facility] Diagnosis 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 Other diseases of trachea and bronchus Lung mass Swelling, mass, or lump in chest Breast nodule Other (abnormal) findings on radiological examination of breast Tobacco abuse Tobacco use disorder Vasogenic brain edema (HCC) Cerebral edema Seizure (HCC) Other convulsions Pre-op evaluation- Primary Preoperative examination, unspecified Seizure (HCC) Other convulsions Vasogenic brain edema (HCC) Cerebral edema Tobacco abuse Tobacco use disorder Neoplasm of lung Neoplasm of unspecified nature of respiratory system 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, stage 4, unspecified laterality (HCC)- Primary [facility] Diagnosis 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 Other diseases of trachea and bronchus Lung mass Swelling, mass, or lump in chest Breast nodule Other (abnormal) findings on radiological examination of breast Tobacco abuse Tobacco use disorder Vasogenic brain edema (HCC) Cerebral edema Seizure (HCC) Other convulsions Pre-op evaluation- Primary Preoperative examination, unspecified Seizure (HCC) Other convulsions Vasogenic brain edema (HCC) Cerebral edema Tobacco abuse Tobacco use disorder Neoplasm of lung Neoplasm of unspecified nature of respiratory system 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 Neoplasm of lung Neoplasm of unspecified nature of respiratory system [facility] Diagnosis 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 Other diseases of trachea and bronchus Lung mass Swelling, mass, or lump in chest Breast nodule Other (abnormal) findings on radiological examination of breast Tobacco abuse Tobacco use disorder Vasogenic brain edema (HCC) Cerebral edema Seizure (HCC) Other convulsions Pre-op evaluation- Primary Preoperative examination, unspecified Seizure (HCC) Other convulsions Vasogenic brain edema (HCC) Cerebral edema Tobacco abuse Tobacco use disorder Neoplasm of lung Neoplasm of unspecified nature of respiratory system 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, stage 4, unspecified laterality (HCC) [facility] Diagnosis 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 Other diseases of trachea and bronchus Lung mass Swelling, mass, or lump in chest Breast nodule Other (abnormal) findings on radiological examination of breast Tobacco abuse Tobacco use disorder Vasogenic brain edema (HCC) Cerebral edema Seizure (HCC) Other convulsions Pre-op evaluation- Primary Preoperative examination, unspecified Seizure (HCC) Other convulsions Vasogenic brain edema (HCC) Cerebral edema Tobacco abuse Tobacco use disorder Neoplasm of lung Neoplasm of unspecified nature of respiratory system 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, stage 4, unspecified laterality (HCC)- Primary Encounter for antineoplastic chemotherapy and immunotherapy Encounter for antineoplastic chemotherapy Leg swelling Swelling of limb [facility] Diagnosis 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 Other diseases of trachea and bronchus Lung mass Swelling, mass, or lump in chest Breast nodule Other (abnormal) findings on radiological examination of breast Tobacco abuse Tobacco use disorder Vasogenic brain edema (HCC) Cerebral edema Seizure (HCC) Other convulsions Pre-op evaluation- Primary Preoperative examination, unspecified Seizure (HCC) Other convulsions Vasogenic brain edema (HCC) Cerebral edema Tobacco abuse Tobacco use disorder Neoplasm of lung Neoplasm of unspecified nature of respiratory system 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 Adenocarcinoma of lung, stage 4, unspecified laterality (HCC) Neoplasm of lung Neoplasm of unspecified nature of respiratory system [facility] Diagnosis 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 Other diseases of trachea and bronchus Lung mass Swelling, mass, or lump in chest Breast nodule Other (abnormal) findings on radiological examination of breast Tobacco abuse Tobacco use disorder Vasogenic brain edema (HCC) Cerebral edema Seizure (HCC) Other convulsions Pre-op evaluation- Primary Preoperative examination, unspecified Seizure (HCC) Other convulsions Vasogenic brain edema (HCC) Cerebral edema Tobacco abuse Tobacco use disorder Neoplasm of lung Neoplasm of unspecified nature of respiratory system 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 seizures, without mention of intractable epilepsy [facility] Diagnosis 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 Other diseases of trachea and bronchus Lung mass Swelling, mass, or lump in chest Breast nodule Other (abnormal) findings on radiological examination of breast Tobacco abuse Tobacco use disorder Vasogenic brain edema (HCC) Cerebral edema Seizure (HCC) Other convulsions Pre-op evaluation- Primary Preoperative examination, unspecified Seizure (HCC) Other convulsions Vasogenic brain edema (HCC) Cerebral edema Tobacco abuse Tobacco use disorder Neoplasm of lung Neoplasm of unspecified nature of respiratory system 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, stage 4, unspecified laterality (HCC)- Primary [facility] Diagnosis 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 Other diseases of trachea and bronchus Lung mass Swelling, mass, or lump in chest Breast nodule Other (abnormal) findings on radiological examination of breast Tobacco abuse Tobacco use disorder Vasogenic brain edema (HCC) Cerebral edema Seizure (HCC) Other convulsions Pre-op evaluation- Primary Preoperative examination, unspecified Seizure (HCC) Other convulsions Vasogenic brain edema (HCC) Cerebral edema Tobacco abuse Tobacco use disorder Neoplasm of lung Neoplasm of unspecified nature of respiratory system 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 Adenocarcinoma of lung, stage 4, unspecified laterality (HCC) Neoplasm of lung Neoplasm of unspecified nature of respiratory system [facility] Diagnosis 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 Other diseases of trachea and bronchus Lung mass Swelling, mass, or lump in chest Breast nodule Other (abnormal) findings on radiological examination of breast Tobacco abuse Tobacco use disorder Vasogenic brain edema (HCC) Cerebral edema Seizure (HCC) Other convulsions Pre-op evaluation- Primary Preoperative examination, unspecified Seizure (HCC) Other convulsions Vasogenic brain edema (HCC) Cerebral edema Tobacco abuse Tobacco use disorder Neoplasm of lung Neoplasm of unspecified nature of respiratory system 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 Neoplasm of lung Neoplasm of unspecified nature of respiratory system [facility] Diagnosis 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 Other diseases of trachea and bronchus Lung mass Swelling, mass, or lump in chest Breast nodule Other (abnormal) findings on radiological examination of breast Tobacco abuse Tobacco use disorder Vasogenic brain edema (HCC) Cerebral edema Seizure (HCC) Other convulsions Pre-op evaluation- Primary Preoperative examination, unspecified Seizure (HCC) Other convulsions Vasogenic brain edema (HCC) Cerebral edema Tobacco abuse Tobacco use disorder Neoplasm of lung Neoplasm of unspecified nature of respiratory system 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 S/P lumpectomy, right breast- Primary Other postprocedural status [facility] Diagnosis 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 Other diseases of trachea and bronchus Lung mass Swelling, mass, or lump in chest Breast nodule Other (abnormal) findings on radiological examination of breast Tobacco abuse Tobacco use disorder Vasogenic brain edema (HCC) Cerebral edema Seizure (HCC) Other convulsions Pre-op evaluation- Primary Preoperative examination, unspecified Seizure (HCC) Other convulsions Vasogenic brain edema (HCC) Cerebral edema Tobacco abuse Tobacco use disorder Neoplasm of lung Neoplasm of unspecified nature of respiratory system 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 [facility] Diagnosis 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 Other diseases of trachea and bronchus Lung mass Swelling, mass, or lump in chest Breast nodule Other (abnormal) findings on radiological examination of breast Tobacco abuse Tobacco use disorder Vasogenic brain edema (HCC) Cerebral edema Seizure (HCC) Other convulsions Pre-op evaluation- Primary Preoperative examination, unspecified Seizure (HCC) Other convulsions Vasogenic brain edema (HCC) Cerebral edema Tobacco abuse Tobacco use disorder Neoplasm of lung Neoplasm of unspecified nature of respiratory system 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 [facility] Diagnosis Neoplasm of lung Neoplasm of unspecified nature of respiratory system [facility] Diagnosis 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 Other diseases of trachea and bronchus Lung mass Swelling, mass, or lump in chest Breast nodule Other (abnormal) findings on radiological examination of breast Tobacco abuse Tobacco use disorder Vasogenic brain edema (HCC) Cerebral edema Seizure (HCC) Other convulsions Pre-op evaluation- Primary Preoperative examination, unspecified Seizure (HCC) Other convulsions Vasogenic brain edema (HCC) Cerebral edema Tobacco abuse Tobacco use disorder Neoplasm of lung Neoplasm of unspecified nature of respiratory system 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, stage 4, unspecified laterality (HCC) [facility] Diagnosis 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 Other diseases of trachea and bronchus Lung mass Swelling, mass, or lump in chest Breast nodule Other (abnormal) findings on radiological examination of breast Tobacco abuse Tobacco use disorder Vasogenic brain edema (HCC) Cerebral edema Seizure (HCC) Other convulsions Pre-op evaluation- Primary Preoperative examination, unspecified Seizure (HCC) Other convulsions Vasogenic brain edema (HCC) Cerebral edema Tobacco abuse Tobacco use disorder Neoplasm of lung Neoplasm of unspecified nature of respiratory system 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, stage 4, unspecified laterality (HCC)- Primary [facility] Diagnosis 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 Other diseases of trachea and bronchus Lung mass Swelling, mass, or lump in chest Breast nodule Other (abnormal) findings on radiological examination of breast Tobacco abuse Tobacco use disorder Vasogenic brain edema (HCC) Cerebral edema Seizure (HCC) Other convulsions Pre-op evaluation- Primary Preoperative examination, unspecified Seizure (HCC) Other convulsions Vasogenic brain edema (HCC) Cerebral edema Tobacco abuse Tobacco use disorder Neoplasm of lung Neoplasm of unspecified nature of respiratory system 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, stage 4, unspecified laterality (HCC) [facility] Diagnosis 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 Other diseases of trachea and bronchus Lung mass Swelling, mass, or lump in chest Breast nodule Other (abnormal) findings on radiological examination of breast Tobacco abuse Tobacco use disorder Vasogenic brain edema (HCC) Cerebral edema Seizure (HCC) Other convulsions Pre-op evaluation- Primary Preoperative examination, unspecified Seizure (HCC) Other convulsions Vasogenic brain edema (HCC) Cerebral edema Tobacco abuse Tobacco use disorder Neoplasm of lung Neoplasm of unspecified nature of respiratory system 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 Neoplasm of lung Neoplasm of unspecified nature of respiratory system [facility] Diagnosis 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 Other diseases of trachea and bronchus Lung mass Swelling, mass, or lump in chest Breast nodule Other (abnormal) findings on radiological examination of breast Tobacco abuse Tobacco use disorder Vasogenic brain edema (HCC) Cerebral edema Seizure (HCC) Other convulsions Pre-op evaluation- Primary Preoperative examination, unspecified Seizure (HCC) Other convulsions Vasogenic brain edema (HCC) Cerebral edema Tobacco abuse Tobacco use disorder Neoplasm of lung Neoplasm of unspecified nature of respiratory system 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 S/P lumpectomy, right breast Other postprocedural status [facility] Diagnosis 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 Other diseases of trachea and bronchus Lung mass Swelling, mass, or lump in chest Breast nodule Other (abnormal) findings on radiological examination of breast Tobacco abuse Tobacco use disorder Vasogenic brain edema (HCC) Cerebral edema Seizure (HCC) Other convulsions Pre-op evaluation- Primary Preoperative examination, unspecified Seizure (HCC) Other convulsions Vasogenic brain edema (HCC) Cerebral edema Tobacco abuse Tobacco use disorder Neoplasm of lung Neoplasm of unspecified nature of respiratory system 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 Neoplasm of lung Neoplasm of unspecified nature of respiratory system [facility] Diagnosis 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 Other diseases of trachea and bronchus Lung mass Swelling, mass, or lump in chest Breast nodule Other (abnormal) findings on radiological examination of breast Tobacco abuse Tobacco use disorder Vasogenic brain edema (HCC) Cerebral edema Seizure (HCC) Other convulsions Pre-op evaluation- Primary Preoperative examination, unspecified Seizure (HCC) Other convulsions Vasogenic brain edema (HCC) Cerebral edema Tobacco abuse Tobacco use disorder Neoplasm of lung Neoplasm of unspecified nature of respiratory system 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 seizures, without mention of intractable epilepsy [facility] Diagnosis 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 Other diseases of trachea and bronchus Lung mass Swelling, mass, or lump in chest Breast nodule Other (abnormal) findings on radiological examination of breast Tobacco abuse Tobacco use disorder Vasogenic brain edema (HCC) Cerebral edema Seizure (HCC) Other convulsions Pre-op evaluation- Primary Preoperative examination, unspecified Seizure (HCC) Other convulsions Vasogenic brain edema (HCC) Cerebral edema Tobacco abuse Tobacco use disorder Neoplasm of lung Neoplasm of unspecified nature of respiratory system 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, stage 4, unspecified laterality (HCC) 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 Other diseases of trachea and bronchus Lung mass Swelling, mass, or lump in chest Breast nodule Other (abnormal) findings on radiological examination of breast Tobacco abuse Tobacco use disorder Vasogenic brain edema (HCC) Cerebral edema Seizure (HCC) Other convulsions Pre-op evaluation- Primary Preoperative examination, unspecified Seizure (HCC) Other convulsions Vasogenic brain edema (HCC) Cerebral edema Tobacco abuse Tobacco use disorder Neoplasm of lung Neoplasm of unspecified nature of respiratory system 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 Neoplasm of lung Neoplasm of unspecified nature of respiratory system [facility] Diagnosis 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 Other diseases of trachea and bronchus Lung mass Swelling, mass, or lump in chest Breast nodule Other (abnormal) findings on radiological examination of breast Tobacco abuse Tobacco use disorder Vasogenic brain edema (HCC) Cerebral edema Seizure (HCC) Other convulsions Pre-op evaluation- Primary Preoperative examination, unspecified Seizure (HCC) Other convulsions Vasogenic brain edema (HCC) Cerebral edema Tobacco abuse Tobacco use disorder Neoplasm of lung Neoplasm of unspecified nature of respiratory system 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, stage 4, unspecified laterality (HCC)- [facility] 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 Other diseases of trachea and bronchus Lung mass Swelling, mass, or lump in chest Breast nodule Other (abnormal) findings on radiological examination of breast Tobacco abuse Tobacco use disorder Vasogenic brain edema (HCC) Cerebral edema Seizure (HCC) Other convulsions Pre-op evaluation- Primary Preoperative examination, unspecified Seizure (HCC) Other convulsions Vasogenic brain edema (HCC) Cerebral edema Tobacco abuse Tobacco use disorder Neoplasm of lung Neoplasm of unspecified nature of respiratory system 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 seizures, without mention of intractable epilepsy [facility] Diagnosis 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 Other diseases of trachea and bronchus Lung mass Swelling, mass, or lump in chest Breast nodule Other (abnormal) findings on radiological examination of breast Tobacco abuse Tobacco use disorder Vasogenic brain edema (HCC) Cerebral edema Seizure (HCC) Other convulsions Pre-op evaluation- Primary Preoperative examination, unspecified Seizure (HCC) Other convulsions Vasogenic brain edema (HCC) Cerebral edema Tobacco abuse Tobacco use disorder Neoplasm of lung Neoplasm of unspecified nature of respiratory system 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, stage 4, unspecified laterality (HCC) [facility] Diagnosis 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 Other diseases of trachea and bronchus Lung mass Swelling, mass, or lump in chest Breast nodule Other (abnormal) findings on radiological examination of breast Tobacco abuse Tobacco use disorder Vasogenic brain edema (HCC) Cerebral edema Seizure (HCC) Other convulsions Pre-op evaluation- Primary Preoperative examination, unspecified Seizure (HCC) Other convulsions Vasogenic brain edema (HCC) Cerebral edema Tobacco abuse Tobacco use disorder Neoplasm of lung Neoplasm of unspecified nature of respiratory system 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, stage 4, unspecified laterality (HCC)- Primary Encounter for antineoplastic chemotherapy and immunotherapy Encounter for antineoplastic chemotherapy Shortness of breath [facility] Diagnosis 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 Other diseases of trachea and bronchus Lung mass Swelling, mass, or lump in chest Breast nodule Other (abnormal) findings on radiological examination of breast Tobacco abuse Tobacco use disorder Vasogenic brain edema (HCC) Cerebral edema Seizure (HCC) Other convulsions Pre-op evaluation- Primary Preoperative examination, unspecified Seizure (HCC) Other convulsions Vasogenic brain edema (HCC) Cerebral edema Tobacco abuse Tobacco use disorder Neoplasm of lung Neoplasm of unspecified nature of respiratory system 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 Neoplasm of lung Neoplasm of unspecified nature of respiratory system [facility] Diagnosis 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 Other diseases of trachea and bronchus Lung mass Swelling, mass, or lump in chest Breast nodule Other (abnormal) findings on radiological examination of breast Tobacco abuse Tobacco use disorder Vasogenic brain edema (HCC) Cerebral edema Seizure (HCC) Other convulsions Pre-op evaluation- Primary Preoperative examination, unspecified Seizure (HCC) Other convulsions Vasogenic brain edema (HCC) Cerebral edema Tobacco abuse Tobacco use disorder Neoplasm of lung Neoplasm of unspecified nature of respiratory system 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 [facility] Diagnosis 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 Other diseases of trachea and bronchus Lung mass Swelling, mass, or lump in chest Breast nodule Other (abnormal) findings on radiological examination of breast Tobacco abuse Tobacco use disorder Vasogenic brain edema (HCC) Cerebral edema Seizure (HCC) Other convulsions Pre-op evaluation- Primary Preoperative examination, unspecified Seizure (HCC) Other convulsions Vasogenic brain edema (HCC) Cerebral edema Tobacco abuse Tobacco use disorder Neoplasm of lung Neoplasm of unspecified nature of respiratory system 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 [facility] Diagnosis 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 Other diseases of trachea and bronchus Lung mass Swelling, mass, or lump in chest Breast nodule Other (abnormal) findings on radiological examination of breast Tobacco abuse Tobacco use disorder Vasogenic brain edema (HCC) Cerebral edema Seizure (HCC) Other convulsions Pre-op evaluation- Primary Preoperative examination, unspecified Seizure (HCC) Other convulsions Vasogenic brain edema (HCC) Cerebral edema Tobacco abuse Tobacco use disorder Neoplasm of lung Neoplasm of unspecified nature of respiratory system 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 Neoplasm of lung Neoplasm of unspecified nature of respiratory system [facility] Diagnosis 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 Other diseases of trachea and bronchus Lung mass Swelling, mass, or lump in chest Breast nodule Other (abnormal) findings on radiological examination of breast Tobacco abuse Tobacco use disorder Vasogenic brain edema (HCC) Cerebral edema Seizure (HCC) Other convulsions Pre-op evaluation- Primary Preoperative examination, unspecified Seizure (HCC) Other convulsions Vasogenic brain edema (HCC) Cerebral edema Tobacco abuse Tobacco use disorder Neoplasm of lung Neoplasm of unspecified nature of respiratory system 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, stage 4, unspecified laterality (HCC) [facility] Diagnosis 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 Other diseases of trachea and bronchus Lung mass Swelling, mass, or lump in chest Breast nodule Other (abnormal) findings on radiological examination of breast Tobacco abuse Tobacco use disorder Vasogenic brain edema (HCC) Cerebral edema Seizure (HCC) Other convulsions Pre-op evaluation- Primary Preoperative examination, unspecified Seizure (HCC) Other convulsions Vasogenic brain edema (HCC) Cerebral edema Tobacco abuse Tobacco use disorder Neoplasm of lung Neoplasm of unspecified nature of respiratory system 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, stage 4, unspecified laterality (HCC) [facility] Diagnosis 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 Other diseases of trachea and bronchus Lung mass Swelling, mass, or lump in chest Breast nodule Other (abnormal) findings on radiological examination of breast Tobacco abuse Tobacco use disorder Vasogenic brain edema (HCC) Cerebral edema Seizure (HCC) Other convulsions Pre-op evaluation- Primary Preoperative examination, unspecified Seizure (HCC) Other convulsions Vasogenic brain edema (HCC) Cerebral edema Tobacco abuse Tobacco use disorder Neoplasm of lung Neoplasm of unspecified nature of respiratory system 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, stage 4, unspecified laterality (HCC)- Primary [facility] Diagnosis 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 Other diseases of trachea and bronchus Lung mass Swelling, mass, or lump in chest Breast nodule Other (abnormal) findings on radiological examination of breast Tobacco abuse Tobacco use disorder Vasogenic brain edema (HCC) Cerebral edema Seizure (HCC) Other convulsions Pre-op evaluation- Primary Preoperative examination, unspecified Seizure (HCC) Other convulsions Vasogenic brain edema (HCC) Cerebral edema Tobacco abuse Tobacco use disorder Neoplasm of lung Neoplasm of unspecified nature of respiratory system 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, stage 4, unspecified laterality (HCC)- Primary [facility] Diagnosis 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 Other diseases of trachea and bronchus Lung mass Swelling, mass, or lump in chest Breast nodule Other (abnormal) findings on radiological examination of breast Tobacco abuse Tobacco use disorder Vasogenic brain edema (HCC) Cerebral edema Seizure (HCC) Other convulsions Pre-op evaluation- Primary Preoperative examination, unspecified Seizure (HCC) Other convulsions Vasogenic brain edema (HCC) Cerebral edema Tobacco abuse Tobacco use disorder Neoplasm of lung Neoplasm of unspecified nature of respiratory system 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 seizures, without mention of intractable epilepsy [facility] Diagnosis 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 Other diseases of trachea and bronchus Lung mass Swelling, mass, or lump in chest Breast nodule Other (abnormal) findings on radiological examination of breast Tobacco abuse Tobacco use disorder Vasogenic brain edema (HCC) Cerebral edema Seizure (HCC) Other convulsions Pre-op evaluation- Primary Preoperative examination, unspecified Seizure (HCC) Other convulsions Vasogenic brain edema (HCC) Cerebral edema Tobacco abuse Tobacco use disorder Neoplasm of lung Neoplasm of unspecified nature of respiratory system 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, stage 4, unspecified laterality (HCC) [facility] Diagnosis 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 Other diseases of trachea and bronchus Lung mass Swelling, mass, or lump in chest Breast nodule Other (abnormal) findings on radiological examination of breast Tobacco abuse Tobacco use disorder Vasogenic brain edema (HCC) Cerebral edema Seizure (HCC) Other convulsions Pre-op evaluation- Primary Preoperative examination, unspecified Seizure (HCC) Other convulsions Vasogenic brain edema (HCC) Cerebral edema Tobacco abuse Tobacco use disorder Neoplasm of lung Neoplasm of unspecified nature of respiratory system 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, stage 4, unspecified laterality (HCC)- Primary Encounter for antineoplastic immunotherapy Shortness of breath [facility] Diagnosis 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 Other diseases of trachea and bronchus Lung mass Swelling, mass, or lump in chest Breast nodule Other (abnormal) findings on radiological examination of breast Tobacco abuse Tobacco use disorder Vasogenic brain edema (HCC) Cerebral edema Seizure (HCC) Other convulsions Pre-op evaluation- Primary Preoperative examination, unspecified Seizure (HCC) Other convulsions Vasogenic brain edema (HCC) Cerebral edema Tobacco abuse Tobacco use disorder Neoplasm of lung Neoplasm of unspecified nature of respiratory system 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, stage 4, unspecified laterality (HCC)- Primary [facility] Diagnosis 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 Other diseases of trachea and bronchus Lung mass Swelling, mass, or lump in chest Breast nodule Other (abnormal) findings on radiological examination of breast Tobacco abuse Tobacco use disorder Vasogenic brain edema (HCC) Cerebral edema Seizure (HCC) Other convulsions Pre-op evaluation- Primary Preoperative examination, unspecified Seizure (HCC) Other convulsions Vasogenic brain edema (HCC) Cerebral edema Tobacco abuse Tobacco use disorder Neoplasm of lung Neoplasm of unspecified nature of respiratory system 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, stage 4, unspecified laterality (HCC) [facility] Diagnosis 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 Other diseases of trachea and bronchus Lung mass Swelling, mass, or lump in chest Breast nodule Other (abnormal) findings on radiological examination of breast Tobacco abuse Tobacco use disorder Vasogenic brain edema (HCC) Cerebral edema Seizure (HCC) Other convulsions Pre-op evaluation- Primary Preoperative examination, unspecified Seizure (HCC) Other convulsions Vasogenic brain edema (HCC) Cerebral edema Tobacco abuse Tobacco use disorder Neoplasm of lung Neoplasm of unspecified nature of respiratory system 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 [facility] Diagnosis 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 Other diseases of trachea and bronchus Lung mass Swelling, mass, or lump in chest Breast nodule Other (abnormal) findings on radiological examination of breast Tobacco abuse Tobacco use disorder Vasogenic brain edema (HCC) Cerebral edema Seizure (HCC) Other convulsions Pre-op evaluation- Primary Preoperative examination, unspecified Seizure (HCC) Other convulsions Vasogenic brain edema (HCC) Cerebral edema Tobacco abuse Tobacco use disorder Neoplasm of lung Neoplasm of unspecified nature of respiratory system 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 [facility] Diagnosis 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 Other diseases of trachea and bronchus Lung mass Swelling, mass, or lump in chest Breast nodule Other (abnormal) findings on radiological examination of breast Tobacco abuse Tobacco use disorder Vasogenic brain edema (HCC) Cerebral edema Seizure (HCC) Other convulsions Pre-op evaluation- Primary Preoperative examination, unspecified Seizure (HCC) Other convulsions Vasogenic brain edema (HCC) Cerebral edema Tobacco abuse Tobacco use disorder Neoplasm of lung Neoplasm of unspecified nature of respiratory system 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 S/P lumpectomy, right breast- Primary Other postprocedural status [facility] Diagnosis 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 Other diseases of trachea and bronchus Lung mass Swelling, mass, or lump in chest Breast nodule Other (abnormal) findings on radiological examination of breast Tobacco abuse Tobacco use disorder Vasogenic brain edema (HCC) Cerebral edema Seizure (HCC) Other convulsions Pre-op evaluation- Primary Preoperative examination, unspecified Seizure (HCC) Other convulsions Vasogenic brain edema (HCC) Cerebral edema Tobacco abuse Tobacco use disorder Neoplasm of lung Neoplasm of unspecified nature of respiratory system 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, stage 4, unspecified laterality (HCC)- Primary [facility] Diagnosis 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 Other diseases of trachea and bronchus Lung mass Swelling, mass, or lump in chest Breast nodule Other (abnormal) findings on radiological examination of breast Tobacco abuse Tobacco use disorder Vasogenic brain edema (HCC) Cerebral edema Seizure (HCC) Other convulsions Pre-op evaluation- Primary Preoperative examination, unspecified Seizure (HCC) Other convulsions Vasogenic brain edema (HCC) Cerebral edema Tobacco abuse Tobacco use disorder Neoplasm of lung Neoplasm of unspecified nature of respiratory system 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, stage 4, unspecified laterality (HCC)- Primary Encounter for antineoplastic immunotherapy Rib pain on left side Chest pain, unspecified Elevated serum creatinine Other nonspecific findings on examination of blood [facility] Diagnosis 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 Other diseases of trachea and bronchus Lung mass Swelling, mass, or lump in chest Breast nodule Other (abnormal) findings on radiological examination of breast Tobacco abuse Tobacco use disorder Vasogenic brain edema (HCC) Cerebral edema Seizure (HCC) Other convulsions Pre-op evaluation- Primary Preoperative examination, unspecified Seizure (HCC) Other convulsions Vasogenic brain edema (HCC) Cerebral edema Tobacco abuse Tobacco use disorder Neoplasm of lung Neoplasm of unspecified nature of respiratory system 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, stage 4, unspecified laterality (HCC)- Primary [facility] Diagnosis 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 Other diseases of trachea and bronchus Lung mass Swelling, mass, or lump in chest Breast nodule Other (abnormal) findings on radiological examination of breast Tobacco abuse Tobacco use disorder Vasogenic brain edema (HCC) Cerebral edema Seizure (HCC) Other convulsions Pre-op evaluation- Primary Preoperative examination, unspecified Seizure (HCC) Other convulsions Vasogenic brain edema (HCC) Cerebral edema Tobacco abuse Tobacco use disorder Neoplasm of lung Neoplasm of unspecified nature of respiratory system 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, stage 4, unspecified laterality (HCC) Encounter for antineoplastic immunotherapy [facility] Diagnosis 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 Other diseases of trachea and bronchus Lung mass Swelling, mass, or lump in chest Breast nodule Other (abnormal) findings on radiological examination of breast Tobacco abuse Tobacco use disorder Vasogenic brain edema (HCC) Cerebral edema Seizure (HCC) Other convulsions Pre-op evaluation- Primary Preoperative examination, unspecified Seizure (HCC) Other convulsions Vasogenic brain edema (HCC) Cerebral edema Tobacco abuse Tobacco use disorder Neoplasm of lung Neoplasm of unspecified nature of respiratory system 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, stage 4, unspecified laterality (HCC)- Primary [facility] Diagnosis 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 Other diseases of trachea and bronchus Lung mass Swelling, mass, or lump in chest Breast nodule Other (abnormal) findings on radiological examination of breast Tobacco abuse Tobacco use disorder Vasogenic brain edema (HCC) Cerebral edema Seizure (HCC) Other convulsions Pre-op evaluation- Primary Preoperative examination, unspecified Seizure (HCC) Other convulsions Vasogenic brain edema (HCC) Cerebral edema Tobacco abuse Tobacco use disorder Neoplasm of lung Neoplasm of unspecified nature of respiratory system 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, stage 4, unspecified laterality (HCC)- Primary documented in this encounter [facility] for referral (narrative)* Diagnostic Procedure Only (Routine) - Additional Clinical Info Needed Specialty Diagnoses / Procedures Referred By Contac t Referred To Contact MOLECULAR & FUNCTIONAL IMAGING Diagnoses Neoplasm of lung Procedures NM PET/CT SKULL-THIGH INITIAL PET IMAGING CT ATTENUATION [place] [address] [place] [address] Molecular & Functional Imaging [address] [id number] Referral ID Status Reason Start Date Expiration Date Visits Requested Visits Authorized [id number] Additional Clinical Info Needed Auto-Generat ed Referral 3 09/02/2024 1 1 [facility] for referral (narrative)* Diagnostic Procedure Only (Routine) - Authorized Specialty Diagnoses / Procedures Referred By Contac t Referred To Contact BR IMAGING Diagnoses History of breast problem Procedures US BIOPSY AXILLA RIGHT BIOPSY MUSCLE PERCUTANEOUS NEEDLE BX/EXC LYMPH NODE NEEDLE SUPERFICIAL Gerda Garcia MD [address] [place] [address] Br Imaging [address] [place] [address] Referral ID Status Reason Start Date Expiration Date Visits Requested Visits Authorized [id number] Authorized Auto-Generat ed Referral 10/27/2023 11/25/2024 1 1 * Diagnostic Procedure Only (Routine) - Authorized Specialty Diagnoses / Procedures Referred By Contac t Referred To Contact BR IMAGING Diagnoses History of breast problem Procedures US BIOPSY BREAST RIGHT BX BREAST W/DEVICE 1ST LESION ULTRASOUND Gerda Krishnamurthy MD [address] [place] [address] Br Imaging [address] [place] [address] Referral ID Status Reason Start Date Expiration Date Visits Requested Visits Authorized [id number] Authorized Auto-Generat ed Referral 10/27/2023 11/25/2024 1 1 [facility] for referral (narrative)* Diagnostic Procedure Only (Routine) - Closed Specialty Diagnoses / Procedures Referred By [place] t Referred To Contact BR IMAGING Diagnoses History of breast problem Procedures US BIOPSY BREAST RIGHT BX BREAST W/DEVICE 1ST LESION ULTRASOUND Gerda Krishnamurthy MD [address] [place] [address] Br Imaging [address] [place] [address] Referral ID Status Reason Start Date Expiration Date V isits Requested Visits Authorized [id number] Closed Auto-Generate d Referral 10/27/2023 11/25/2024 1 1 [facility] for referral (narrative)* Diagnostic Procedure Only (Routine) - Closed Specialty Diagnoses / Procedures Referred By [place] t Referred To Contact BR IMAGING Diagnoses History of breast problem Procedures US BIOPSY AXILLA RIGHT BIOPSY MUSCLE PERCUTANEOUS NEEDLE BX/EXC LYMPH NODE NEEDLE SUPERFICIAL Gerda Garcia MD [address] [place] [address] Br Imaging [address] [place] [phone] Referral ID Status Reason Start Date Expiration Date V isits Requested Visits Authorized [id number] Closed Auto-Generate d Referral 10/27/2023 11/25/2024 1 1 [facility] for referral (narrative)* Outpatient Procedure (Urgent) - Closed Specialty Diagnoses / Procedures Referred By Contac t Referred To Contact [facility] [place] Diagnoses Swelling of limb Procedures US LEG VEIN DVT SHYLA VAS LAB DUP-SCAN XTR VEINS COMPLETE BILATERAL STUDY Jessica Masterson PA-C [address] [place] [address] [address] Referral ID Status Reason Start Date Expiration Date V isits Requested Visits Authorized [id number] Closed Auto-Generate d Referral 03/01/2024 03/01/2025 1 1 [facility] for referral (narrative)* Diagnostic Procedure Only (Routine) - Authorized Specialty Diagnoses / Procedures Referred By Contac t Referred To Contact BR IMAGING Diagnoses S/P lumpectomy, right breast Procedures CATHY DIAGNOSTIC BILATERAL DIAGNOSTIC MAMMOGRAPHY COMPUTER[place] [address] [place] [address] Br Imaging [address] [place] [address] Referral ID Status Reason Start Date Expiration Date Visits Requested Visits Authorized [id number] Authorized Auto-Generat ed Referral 08/22/2025 1 1 [facility] for visit Narrative* Diagnostic Procedure Only (Routine) - Closed Specialty Diagnoses / Procedures Referred By Contac t Referred To Contact BR IMAGING Diagnoses History of breast problem Procedures US BIOPSY BREAST RIGHT BX BREAST W/DEVICE 1ST LESION ULTRASOUND GUID Gerda Garcia MD [address] [place] [address] Br Imaging [address] [place] [address] Referral ID Status Reason Start Date Expiration Date V isits Requested Visits Authorized [id number] Closed Auto-Generate d Referral 10/27/2023 11/25/2024 1 1 [facility] for visit Narrative* Diagnostic Procedure Only (Routine) - Closed Specialty Diagnoses / Procedures Referred By Contac t Referred To Contact BR IMAGING Diagnoses History of breast problem Procedures US BIOPSY AXILLA RIGHT BIOPSY MUSCLE PERCUTANEOUS NEEDLE BX/EXC LYMPH NODE NEEDLE SUPERFICIAL Gerda Garcia MD [address] [place] [address] Br Imaging [address] [place] [phone] Referral ID Status Reason Start Date Expiration Date V isits Requested Visits Authorized [id number] Closed Auto-Generate d Referral 10/27/2023 11/25/2024 1 1 [facility] for visit Narrative* Diagnostic Procedure Only (Routine) - Closed Specialty Diagnoses / Procedures Referred By Contac t Referred To Contact BR IMAGING Diagnoses Malignant neoplasm of upper-outer quadrant of right breast in female, estrogen receptor positive (HCC) Procedures CATHY NDL LOC W CATHY GD RIGHT PERQ DEVICE PLACEMENT BREAST LOC 1ST LES W/GDNCE Grace Pastor, PAAnthonyC [address] [place] [address] Br Imaging [address] [place] [phone] Referral ID Status Reason Start Date Expiration Date V isits Requested Visits Authorized [id number] Closed Auto-Generate d Referral 12/16/2023 01/09/2025 1 1 [facility] for visit Narrative* Diagnostic Procedure Only (Routine) - Closed Specialty Diagnoses / Procedures Referred By Contac t Referred To Contact BR IMAGING Diagnoses S/P lumpectomy, right breast Procedures CATHY DIAGNOSTIC BILATERAL DIAGNOSTIC MAMMOGRAPHY COMPUT[place] [address] [place] [address] Br Imaging [address] [place] [address] Referral ID Status Reason Start Date Expiration Date V isits Requested Visits Authorized [id number] Closed Auto-Generate d Referral 07/23/2024 08/22/2025 1 1 [facility] for visit Narrative* [place] Prior Authorization (Routine) - Authorized Specialty Diagnoses / Procedures Referred By [place] t Referred To Contact Diagnoses 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 Procedures CARBOPLATIN INJECTION PALONOSETRON HCL FOSAPREPITANT INJECTION INJECTION, PEMETREXED, NOT OTHERWISE SPECIFIED, 10 MG [place] [address] [place] [address] Phone: tel: fax: Hematology/Oncology [address] [place] [address] Phone: tel: Referral ID Status Reason Start Date Expiration Date V isits Requested Visits Authorized [id number] Authorized 08/20/2023 08/24/2025 99 99 [facility] for visit Narrative* MRI/CT (Routine) - Closed Specialty Diagnoses / Procedures Referred By [place] t Referred To Contact MR IMAGING Diagnoses Metastasis to brain (HCC) Procedures MRI BRAIN WO/W IVCON MRI BRAIN BRAIN STEM W/O W/CONTRAST MATERIAL Mariela Rivera APRN.SLOT MACHINE KEY PERSON [address] [place] [address] Phone: tel: fax: MR IMAGING [facility]95 Referral ID Status Reason Start Date Expiration Date V isits Requested Visits Authorized [id number] Closed Auto-Generate d Referral 07/29/2024 08/28/2025 1 1 [facility] for visit Narrative* MRI/CT (Routine) - Closed Specialty Diagnoses / Procedures Referred By [place] t Referred To Contact CT IMAGING Diagnoses Adenocarcinoma of lung, stage 4, unspecified laterality (HCC) Procedures CT CHEST WO IVCON DIAGNOSTIC COMPUTED TOMOGRAPHY THORAX W/[place] [address] [id number] Phone: tel: fax: CT IMAGING [place] [address] Referral ID Status Reason Start Date Expiration Date V isits Requested Visits Authorized [id number] Closed Auto-Generate d Referral 10/25/2024 10/27/2025 1 1 [facility] for visit Narrative* [place] Prior Authorization (Routine) - Authorized Specialty Diagnoses / Procedures Referred By Contac t Referred To Contact Diagnoses Adenocarcinoma of lung, stage 4, unspecified laterality (HCC) Procedures INJ PEMBROLIZUMAB Joleen Jiang MD [address] [place] [address] Phone: tel: fax: Hematology/Oncology [address] [place] [address] Phone: tel: Referral ID Status Reason Start Date Expiration Date V isits Requested Visits Authorized [id number] Authorized 09/27/2024 08/24/2025 99 99 [facility] for visit Narrative* MRI/CT (Routine) - Closed Specialty Diagnoses / Procedures Referred By Contac t Referred To Contact CT IMAGING Diagnoses Adenocarcinoma of lung, stage 4, unspecified laterality (HCC) Procedures CT CHEST WO IVCON DIAGNOSTIC COMPUTED TOMOGRAPHY THORAX W/O CNTRST Joleen Jiang MD [address] [place] [address] Phone: tel: fax: CT IMAGING [place] [address] Referral ID Status Reason Start Date Expiration Date V isits Requested Visits Authorized [id number] Closed Auto-Generate d Referral 01/31/2025 12/08/2025 1 1 [facility] for visit Narrative* MRI/CT (Routine) - Closed Specialty Diagnoses / Procedures Referred By Contac t Referred To Contact MR IMAGING Diagnoses Metastasis to brain (HCC) Procedures MRI BRAIN WO/W IVCON MRI BRAIN BRAIN STEM W/O W/CONTRAST MATERIAL Mariela Rivera, [employer] [place].SLOT MACHINE KEY PERSON [address] [phone] Phone: tel: fax: MR IMAGING [facility]95 Referral ID Status Reason Start Date Expiration Date V isits Requested Visits Authorized [id number] Closed Auto-Generate d Referral 10/28/2024 11/27/2025 1 1 [facility] Chief Complaint and Reason for Visit Chief Complaint Preventive wellness exam PE Reason for Visit Wellness examination Summary Purpose Family History No Family History Records Found Advance Directives No Advanced Directives Records FoundNo Advanced Directives Records FoundNo Advanced Directives Records FoundNo Advanced Directives Records FoundNo Advanced Directives Records FoundNo Advanced Directives Records FoundNo Advanced Directives Records Found Reason for Referral Specialty Diagnoses / Procedures Referred By Contac t Referred To Contact MR IMAGING Diagnoses Secondary malignant neoplasm of brain (HCC) Procedures MRI BRAIN LOCALIZATION W IVCON UNLISTED MAGNETIC RESONANCE PROCED Connor Servin MD [address] [place] [address] Mr Imaging [facility]95 Referral ID Status Reason Start Date Expiration Date V isits Requested Visits Authorized [id number] Closed Auto-Generate d Referral 07/23/2023 09/06/2023 1 1 Specialty Diagnoses / Procedures Referred By Contac t Referred To Contact MR IMAGING Diagnoses Secondary malignant neoplasm of brain (HCC) Procedures MRI BRAIN WO/W IVCON MRI BRAIN BRAIN STEM W/O W/CONTRAST MATERIAL [place] [address] [address] [place] [address] Mr Imaging [place] [address] Referral ID Status Reason Start Date Expiration Date Visits Requested Visits Authorized [id number] Pending Review Auto-Generat ed Referral 09/26/2023 10/25/2024 1 1 Specialty Diagnoses / Procedures Referred By Contac t Referred To Contact MR IMAGING Diagnoses Secondary malignant neoplasm of brain (HCC) Procedures MRI BRAIN WO/W IVCON MRI BRAIN BRAIN STEM W/O W/CONTRAST MATERIAL Connor Servin MD [address] [place] [address] Mr Imaging [facility]95 Referral ID Status Reason Start Date Expiration Date V isits Requested Visits Authorized [id number] Closed Auto-Generate d Referral 07/22/2023 08/20/2024 1 1 Specialty Diagnoses / Procedures Referred By Contac t Referred To Contact CT IMAGING Diagnoses Malignant neoplasm of unspecified part of unspecified bronchus or lung (HCC) Procedures CT CHEST W IVCON DIAGNOSTIC COMPUTED TOMOGRAPHY THORAX W/[place] [phone] Imaging [place] [address] Referral ID Status Reason Start Date Expiration Date V isits Requested Visits Authorized [id number] Closed Auto-Generate d Referral 09/17/2023 10/16/2024 1 1 Specialty Diagnoses / Procedures Referred By Contac t Referred To Contact CT IMAGING Diagnoses Intra-abdominal and pelvic swelling, mass and lump, unspecified site Procedures CT ABD/PEL W IVCON CT ABD & PELVIS W/CONTRAST Joleen Jiang MD [address] [place], [place] [address] Ct Imaging [place] [address] Referral ID Status Reason Start Date Expiration Date V isits Requested Visits Authorized [id number] Closed Auto-Generate d Referral 09/19/2023 11/03/2023 1 1 Referral ID Status Reason Start Date Expiration Date Visits Requested Visits Authorized [id number] Pending Review Auto-Generat ed Referral 11/26/2023 11/13/2024 1 1 Referral ID Status Reason Start Date Expiration Date V isits Requested Visits Authorized [id number] Closed Auto-Generate d Referral 11/26/2023 11/13/2024 1 1 Specialty Diagnoses / Procedures Referred By Contac t Referred To Contact MR IMAGING Diagnoses Metastasis to brain (HCC) Procedures MRI BRAIN WO/W IVCON MRI BRAIN BRAIN STEM W/O W/CONTRAST MATERIAL Mariela Rivera, [facility] [employer] [place].SLOT MACHINE KEY PERSON [address] [place] [address] Mr Imaging [facility]95 Referral ID Status Reason Start Date Expiration Date Visits Requested Visits Authorized [id number] Authorized Auto-Generat ed Referral 01/08/2024 02/06/2025 1 1 Referral ID Status Reason Start Date Expiration Date V isits Requested Visits Authorized [id number] Closed Auto-Generate d Referral 09/26/2023 10/25/2024 1 1 Specialty Diagnoses / Procedures Referred By Contac t Referred To Contact Radiation Oncology Diagnoses Malignant neoplasm of upper-outer quadrant of right breast in female, estrogen receptor positive (HCC) Procedures RAD/ONC CONSULT OFFICE/OUTPATIENT NEW HIGH MDM 60 MINUTES Grace Pastor PA-C [address] [place] [address] Referral ID Status Reason Start Date Expiration Date Visits Requested Visits Authorized [id number] Authorized PCP Requested Referral 01/16/2024 01/15/2025 1 1 Specialty Diagnoses / Procedures Referred By Contac t Referred To Contact [facility] Diagnoses S/P lumpectomy of breast At risk for lymphedema Procedures CONSULT TO BREAST REHAB PROGRAM THERAPEUTIC EXERCISES RE, EA 15 MIN. THERAPEUT ACTVITY DIRECT PT CONTACT EACH [place] [address] [place] [address] [facility] [place] [address] [place] [address] Referral ID Status Reason Start Date Expiration Date Visits Requested Visits Authorized [id number] Authorized PCP Requested Referral Auto-Generate d Referral 02/02/2024 02/01/2025 1 1 Specialty Diagnoses / Procedures Referred By Contac t Referred To Contact CT IMAGING Diagnoses Adenocarcinoma of lung, stage 4, unspecified laterality (HCC) Procedures CT CHEST WO IVCON DIAGNOSTIC COMPUTED TOMOGRAPHY THORAX W/[place] [address] [place] [address] [place] [address] Referral ID Status Reason Start Date Expiration Date Visits Requested Visits Authorized [id number] Authorized Auto-Generat ed Referral 02/20/2024 03/21/2025 1 1 Referral ID Status Reason Start Date Expiration Date Visits Requested Visits Authorized [id number] Authorized Auto-Generat ed Referral 04/22/2024 05/22/2025 1 1 Referral ID Status Reason Start Date Expiration Date V isits Requested Visits Authorized [id number] Closed Auto-Generate d Referral 01/08/2024 02/06/2025 1 1 Referral ID Status Reason Start Date Expiration Date Visits Requested Visits Authorized [id number] Authorized Auto-Generat ed Referral 04/23/2024 05/23/2025 1 1 Referral ID Status Reason Start Date Expiration Date Visits Requested Visits Authorized [id number] New Request Auto-Generat ed Referral 07/07/2025 1 1 Referral ID Status Reason Start Date Expiration Date Visits Requested Visits Authorized [id number] Authorized Auto-Generat ed Referral 07/29/2024 08/28/2025 1 1 Referral ID Status Reason Start Date Expiration Date V isits Requested Visits Authorized [id number] Closed Auto-Generate d Referral 04/22/2024 05/22/2025 1 1 Referral ID Status Reason Start Date Expiration Date Visits Requested Visits Authorized [id number] Authorized Auto-Generat ed Referral 10/25/2024 10/27/2025 1 1 Additional Source Comments Goals (unrecognized section and content) Goals may be documented in a n alternate sectionGoals may be documented in an alternate section Care Teams (unrecognized sec tion and content) Team Status: Active Member Role Status Dates No Primary Care Physician Primary Care Provider Active Team Status: Inactive Member Role Status Dates Martine Marrufo SENIOR OFFICER, SENIOR OFFICER-C Attending Provider Active Team Status: Inactive Member Role Status Dates Martine Marrufo SENIOR OFFICER, SENIOR OFFICER-C Attending Provider, Referring Provider Active No Primary Care Physician Primary Care Provider Active Hotel Dining [employer] Cashier Relationship Specialty Start Date End Date Martine Marrufo, [facility] [employer] [place].CRIS [address] [place] [address] PCP - General Family Medicine 07/19/23 Hotel [employer]ining Room Cashier Relationship Specialty Start Date End Date Martine Marrufo, [employer] CARE [place].SLOT MACHINE KEY PERSON [address] [place] [address] PCP - General Family Medicine 07/19/23 Hotel Dining Room Cashier Relationship Specialty Start Date End Date Martine Marrufo, HOME CARE [place].SLOT MACHINE KEY PERSON [address] [place] [address] PCP - General Family Medicine 07/19/23 Sina Hackett MD [address] [place] [address] Family Medicine 07/19/23 Hotel [employer]ining Room Cashier Relationship Specialty Start Date End Date Martine Marrufo, [employer] CARE [place].SLOT MACHINE KEY PERSON [address] [place] [address] PCP - General Family Medicine 07/19/23 Sina Hackett MD [address] [place] [address] Family Medicine 07/19/23 Hotel Dining Room Cashier Relationship Specialty Start Date End Date Martine Marrufo, [employer] [place].SLOT MACHINE KEY PERSON [address] [place] [address] PCP - General Family Medicine 07/19/23 Sina Hackett MD [address] [place] [address] Family Medicine 07/19/23 Hotel Dining Room Cashier Relationship Specialty Start Date End Date Martine Marrufo, [employer] [place].SLOT MACHINE KEY PERSON [address] [place] [address] PCP - General Family Medicine 07/19/23 Sina Hackett MD [address] [place] [address] Family Medicine 07/19/23 Hotel [employer]ining Room Cashier Relationship Specialty Start Date End Date Martine Marrufo, [employer] C[employer] [place].SLOT MACHINE KEY PERSON [address] [place] [address] PCP - General Family Medicine 07/19/23 Sina Hackett MD [address] [place] [address] Family Medicine 07/19/23 Hotel Dining Room Cashier Relationship Specialty Start Date End Date Martine Marrufo, HOME CARE [place].SLOT MACHINE KEY PERSON [address] [place] [address] PCP - General Family Medicine 07/19/23 Sina Hackett MD [address] [place] [address] Family Medicine 07/19/23 Jessie Scott RN Specialty Vehicle Body Builder Hematology/Oncology 08/04/23 Joleen Jiang MD [address] [place] [address] Hematology/Oncology 08/04/23 Hotel Dining Room Cashier Relationship Specialty Start Date End Date Martine Marrufo, [employer] C[employer] [place].SLOT MACHINE KEY PERSON [address] [place] [address] PCP - General Family Medicine 07/19/23 Sina Hackett MD [address] [place] [address] Family Medicine 07/19/23 Jessie Scott RN Specialty Vehicle Body Builder Hematology/Oncology 08/04/23 Joleen Jiang MD [address] [place] [address] Hematology/Oncology 08/04/23 Hotel Dining Room Cashier Relationship Specialty Start Date End Date Martine Marrufo, HOME CARE [place].SLOT MACHINE KEY PERSON [address] [place] [address] PCP - General Family Medicine 07/19/23 Sina Hackett MD [address] [place] [address] Family Medicine 07/19/23 Jessie Scott RN Specialty Vehicle Body Builder Hematology/Oncology 08/04/23 Joleen Jiang MD [address] [place] [address] Hematology/Oncology 08/04/23 Marta Moore RN Specialty Vehicle Body Builder Hematology/Oncology 08/06/23 Hotel Dining Room Cashier Relationship Specialty Start Date End Date Martine Marrufo, HOME CARE [place].SLOT MACHINE KEY PERSON [address] [place] [address] PCP - General Family Medicine 07/19/23 Sina Hackett MD [address] [place] [address] Family Medicine 07/19/23 Jessie Scott RN Specialty Vehicle Body Builder Hematology/Oncology 08/04/23 Joleen Jiang MD [address] [place] [address] Hematology/Oncology 08/04/23 Marta Moore RN Specialty Vehicle Body Builder Hematology/Oncology 08/06/23 Hotel Dining Room Cashier Relationship Specialty Start Date End Date Martine Marrufo, HOME CARE [place].SLOT MACHINE KEY PERSON [address] [place] [address] PCP - General Family Medicine 07/19/23 Sina Hackett MD [address] [place] [address] Family Medicine 07/19/23 Jessie Scott RN Specialty Vehicle Body Builder Hematology/Oncology 08/04/23 Joleen Jiang MD [address] [place] [address] Hematology/Oncology 08/04/23 Marta Moore RN Specialty Vehicle Body Builder Hematology/Oncology 08/06/23 Shanique Vasquez LISW [address] [place] [address] Mechanic Foreman Oncology 08/20/23 Hotel Dining Room Cashier Relationship Specialty Start Date End Date Martine Marrufo, HOME CARE [employer].SLOT MACHINE KEY PERSON [address] [place] [address] PCP - General Family Medicine 07/19/23 Sina Hackett MD [address] [place] [address] Family Medicine 07/19/23 Jessie Scott RN Specialty Vehicle Body Builder Hematology/Oncology 08/04/23 Joleen Jiang MD [address] [place] [address] Hematology/Oncology 08/04/23 Marta Moore RN Specialty Vehicle Body Builder Hematology/Oncology 08/06/23 Shanique Vasquez LISW [address] [place], [place] [id number] Mechanic Foreman Oncology 08/20/23 Hotel Dining Room Cashier Relationship Specialty Start Date End Date Martine Marrufo, HOME CARE [employer].SLOT MACHINE KEY PERSON [address] [place] [address] PCP - General Family Medicine 07/19/23 Sina Hackett MD [address] [place] [address] Family Medicine 07/19/23 Jessie Scott RN Specialty Vehicle Body Builder Hematology/Oncology 08/04/23 Joleen Jiang MD [address] [place] [address] Hematology/Oncology 08/04/23 Marta Moore, EFRAIN Specialty Vehicle Body Builder Hematology/Oncology 08/06/23 Shanique Vasquez LISW [address] [place] [phone] Mechanic Foreman Oncology 08/20/23 Hotel Dining Room Cashier Relationship Specialty Start Date End Date Martine Marrufo, HOME CARE [employer].SLOT MACHINE KEY PERSON [address] [place] [address] PCP - General Family Medicine 07/19/23 Sina Hackett MD [address] [place], [place] [address] Family Medicine 07/19/23 Jessie Scott RN Specialty Vehicle Body Builder Hematology/Oncology 08/04/23 Joleen Jiang MD [address] [place] [address] Hematology/Oncology 08/04/23 Marta Moore, EFRAIN Specialty Vehicle Body Builder Hematology/Oncology 08/06/23 Shanique Vasquez LISW [address] [place] [address] Mechanic Foreman Oncology 08/20/23 Hotel Dining Room Cashier Relationship Specialty Start Date End Date Martine Marrufo, HOME CARE [place].SLOT MACHINE KEY PERSON [address] [place], [place] [id number] PCP - General Family Medicine 07/19/23 Sina Hackett MD [address] [place], [place] [id number] Family Medicine 07/19/23 Jessie Scott RN Specialty Vehicle Body Builder Hematology/Oncology 08/04/23 Joleen Jiang MD [address] [place] [address] Hematology/Oncology 08/04/23 Marta Moore, RN Specialty Vehicle Body Builder Hematology/Oncology 08/06/23 Shanique Vasquez LISW [address] [place] [address] Mechanic Foreman Oncology 08/20/23 Hotel Dining Room Cashier Relationship Specialty Start Date End Date Martine Marrufo, HOME CARE [employer].SLOT MACHINE KEY PERSON [address] [place], [place] [phone] PCP - General Family Medicine 07/19/23 Sina Hackett MD [address] [place], [place] [phone] Family Medicine 07/19/23 Jessie Scott RN Specialty Vehicle Body Builder Hematology/Oncology 08/04/23 Joleen Jiang MD [address] [place] [address] Hematology/Oncology 08/04/23 Marta Moore RN Specialty Vehicle Body Builder Hematology/Oncology 08/06/23 Shanique Vasquez LISW [address] [place] [address] Mechanic Foreman Oncology 08/20/23 Hotel Dining Room Cashier Relationship Specialty Start Date End Date Martine Marrufo, HOME CARE CHAPLAIN.SLOT MACHINE KEY PERSON [address] [place], [place] [phone] PCP - General Family Medicine 07/19/23 Sina Hackett MD [address] [place], [place] [phone] Family Medicine 07/19/23 Jessie Scott RN Specialty Vehicle Body Builder Hematology/Oncology 08/04/23 Joleen Jiang MD [address] [place] [address] Hematology/Oncology 08/04/23 Marta Moore RN Specialty Vehicle Body Builder Hematology/Oncology 08/06/23 Shanique Vasquez LISW [address] [place] [address] Mechanic Foreman Oncology 08/20/23 Hotel Dining Room Cashier Relationship Specialty Start Date End Date Martine Marrufo, HOME CARE CHAPLAIN.SLOT MACHINE KEY PERSON [address] [place], [place] [phone] PCP - General Family Medicine 07/19/23 Sina Hackett MD [address] [place], [place] [phone] Family Medicine 07/19/23 Jessie Scott RN Specialty Vehicle Body Builder Hematology/Oncology 08/04/23 Joleen Jiang MD [address] [place] [address] Hematology/Oncology 08/04/23 Marta Moore, EFRAIN Specialty Vehicle Body Builder Hematology/Oncology 08/06/23 Shanique Vasquez LISW [address] [place] [address] Mechanic Foreman Oncology 08/20/23 Hotel Dining Room Cashier Relationship Specialty Start Date End Date Martine Marrufo, HOME CARE CHAPLAIN.SLOT MACHINE KEY PERSON [address] [place] [address] PCP - General Family Medicine 07/19/23 Sina Hackett MD [address] [place] [address] Family Medicine 07/19/23 Jessie Scott RN Specialty Vehicle Body Builder Hematology/Oncology 08/04/23 Joleen Jiang MD [address] [place] [address] Hematology/Oncology 08/04/23 Marta Moore, EFRAIN Specialty Vehicle Body Builder Hematology/Oncology 08/06/23 Shanique Vasquez LISW [address] [place] [address] Mechanic Foreman Oncology 08/20/23 Hotel Dining Room Cashier Relationship Specialty Start Date End Date Martine Marrufo, HOME CARE CHAPLAIN.SLOT MACHINE KEY PERSON [address] [place], [place] [phone] PCP - General Family Medicine 07/19/23 Sina Hackett MD [address] [place], [place] [phone] Family Medicine 07/19/23 Jessie Scott RN Specialty Vehicle Body Builder Hematology/Oncology 08/04/23 Joleen Jiang MD [address] [place] [address] Hematology/Oncology 08/04/23 Marta Moore RN Specialty Vehicle Body Builder Hematology/Oncology 08/06/23 Shanique Vasquez LISW [address] [place], [place] [phone] Mechanic Foreman Oncology 08/20/23 Hotel Dining Room Cashier Relationship Specialty Start Date End Date Martine Marrufo, HOME CARE CHAPLAIN.SLOT MACHINE KEY PERSON [address] [place] [address] PCP - General Family Medicine 07/19/23 Sina Hackett MD [address] [place] [address] Family Medicine 07/19/23 Jessie Scott RN Specialty Vehicle Body Builder Hematology/Oncology 08/04/23 Joleen Jiang MD [address] [place] [address] Hematology/Oncology 08/04/23 Marta Moore RN Specialty Vehicle Body Builder Hematology/Oncology 08/06/23 Shanique Vasquez LISW [address] [place] [address] Mechanic Foreman Oncology 08/20/23 Hotel Dining Room Cashier Relationship Specialty Start Date End Date Martine Marrufo, HOME CARE CHAPLAIN.SLOT MACHINE KEY PERSON [address] [place], [place] [phone] PCP - General Family Medicine 07/19/23 Sina Hackett MD [address] [place], [place] [phone] Family Medicine 07/19/23 Jessie Scott RN Specialty Vehicle Body Builder Hematology/Oncology 08/04/23 Joleen Jiang MD [address] [place] [address] Hematology/Oncology 08/04/23 Marta Moore RN Specialty Vehicle Body Builder Hematology/Oncology 08/06/23 Shanique Vasquez LISW [address] [place] [address] Mechanic Foreman Oncology 08/20/23 Hotel Dining Room Cashier Relationship Specialty Start Date End Date Martine Marrufo, HOME CARE CHAPLAIN.SLOT MACHINE KEY PERSON [address] [place], [place] [phone] PCP - General Family Medicine 07/19/23 Sina Hackett MD [address] [place], [place] [phone] Family Medicine 07/19/23 Jessie Scott RN Specialty Vehicle Body Builder Hematology/Oncology 08/04/23 Joleen Jiang MD [address] [place] [address] Hematology/Oncology 08/04/23 Marta Moore, EFRAIN Specialty Vehicle Body Builder Hematology/Oncology 08/06/23 Shanique Vasquez LISW [address] [place] [address] Mechanic Foreman Oncology 08/20/23 Hotel Dining Room Cashier Relationship Specialty Start Date End Date Martine Marrufo, HOME CARE CHAPLAIN.SLOT MACHINE KEY PERSON [address] [place], [place] [phone] PCP - General Family Medicine 07/19/23 Sina Hackett MD [address] [place], [place] [phone] Family Medicine 07/19/23 Jessie Scott RN Specialty Vehicle Body Builder Hematology/Oncology 08/04/23 Joleen Jiang MD [address] [place] [address] Hematology/Oncology 08/04/23 Marta Moore, EFRAIN Specialty Vehicle Body Builder Hematology/Oncology 08/06/23 Shanique Vasquez LISW [address] [place] [address] Mechanic Foreman Oncology 08/20/23 Hotel Dining Room Cashier Relationship Specialty Start Date End Date Martine Marrufo, HOME CARE CHAPLAIN.SLOT MACHINE KEY PERSON [address] [place], [place] [phone] PCP - General Family Medicine 07/19/23 Sina Hackett MD [address] [place], [place] [phone] Family Medicine 07/19/23 Jessie Scott RN Specialty Vehicle Body Builder Hematology/Oncology 08/04/23 Joleen Jiang MD [address] [place] [address] Hematology/Oncology 08/04/23 Marta Moore, EFRAIN Specialty Vehicle Body Builder Hematology/Oncology 08/06/23 Shanique Vasquez LISW [address] [place] [address] Mechanic Foreman Oncology 08/20/23 Hotel Dining Room Cashier Relationship Specialty Start Date End Date Martine Marrufo, HOME CARE CHAPLAIN.SLOT MACHINE KEY PERSON [address] [place] [address] PCP - General Family Medicine 07/19/23 Sina Hackett MD [address] [place] [address] Family Medicine 07/19/23 Jessie Scott RN Specialty Vehicle Body Builder Hematology/Oncology 08/04/23 Joleen Jiang MD [address] [place] [address] Hematology/Oncology 08/04/23 Marta Moore, EFRAIN Specialty Vehicle Body Builder Hematology/Oncology 08/06/23 Shanique Vasquez LISW [address] [place] [address] Mechanic Foreman Oncology 08/20/23 Hotel Dining Room Cashier Relationship Specialty Start Date End Date Martine Marrufo, HOME CARE CHAPLAIN.SLOT MACHINE KEY PERSON [address] [place] [address] PCP - General Family Medicine 07/19/23 Sina Hackett MD [address] [place] [address] Family Medicine 07/19/23 Jessie Scott RN Specialty Vehicle Body Builder Hematology/Oncology 08/04/23 Joleen Jiang MD [address] [place] [address] Hematology/Oncology 08/04/23 Marta Moore RN Specialty Vehicle Body Builder Hematology/Oncology 08/06/23 Shanique Vasquez LISW [address] [place] [address] Mechanic Foreman Oncology 08/20/23 Hotel Dining Room Cashier Relationship Specialty Start Date End Date Martine Marrufo, HOME CARE CHAPLAIN.SLOT MACHINE KEY PERSON [address] [place] [address] PCP - General Family Medicine 07/19/23 Sina Hackett MD [address] [place] [address] Family Medicine 07/19/23 Jessie Scott RN Specialty Vehicle Body Builder Hematology/Oncology 08/04/23 Joleen Jiang MD [address] [place] [address] Hematology/Oncology 08/04/23 Marta Moore, EFRAIN Specialty Vehicle Body Builder Hematology/Oncology 08/06/23 Shanique Vasquez LISW [address] [place] [address] Mechanic Foreman Oncology 08/20/23 Hotel Dining Room Cashier Relationship Specialty Start Date End Date Martine Marrufo, HOME CARE CHAPLAIN.SLOT MACHINE KEY PERSON [address] [place] [address] PCP - General Family Medicine 07/19/23 Sina Hackett MD [address] [place] [address] Family Medicine 07/19/23 Jessie Scott RN Specialty Vehicle Body Builder Hematology/Oncology 08/04/23 Joleen Jiang MD [address] [place] [address] Hematology/Oncology 08/04/23 Marta Moore, EFRAIN Specialty Vehicle Body Builder Hematology/Oncology 08/06/23 Shanique Vasquez TOUR CONSULTANT [address] [place] [address] Mechanic Foreman Oncology 08/20/23 Hotel Dining Room Cashier Relationship Specialty Start Date End Date Martine Marrufo, HOME CARE CHAPLAIN.SLOT MACHINE KEY PERSON [address] [place] [address] PCP - General Family Medicine 07/19/23 Sina Hackett MD [address] [place], [place] [phone] Family Medicine 07/19/23 Jessie Scott RN Specialty Vehicle Body Builder Hematology/Oncology 08/04/23 Joleen Jiang MD [address] [place] [address] Hematology/Oncology 08/04/23 Marta Moore, EFRAIN Specialty Vehicle Body Builder Hematology/Oncology 08/06/23 Shanique Vasquez LISW [address] [place] [address] Mechanic Foreman Oncology 08/20/23 Hotel Dining Room Cashier Relationship Specialty Start Date End Date Martine Marrufo, HOME CARE CHAPLAIN.SLOT MACHINE KEY PERSON [address] [place], [place] [phone] PCP - General Family Medicine 07/19/23 Sina Hackett MD [address] [place], [place] [phone] Family Medicine 07/19/23 Jessie Scott RN Specialty Vehicle Body Builder Hematology/Oncology 08/04/23 Joleen Jiang MD [address] [place] [address] Hematology/Oncology 08/04/23 Marta Moore, EFRAIN Specialty Vehicle Body Builder Hematology/Oncology 08/06/23 Shanique Vasquez LISW [address] [place] [address] Mechanic Foreman Oncology 08/20/23 Hotel Dining Room Cashier Relationship Specialty Start Date End Date Martine Marrufo, HOME CARE CHAPLAIN.SLOT MACHINE KEY PERSON [address] [place], [place] [phone] PCP - General Family Medicine 07/19/23 Sina Hackett MD [address] [place], [place] [phone] Family Medicine 07/19/23 Jessie Scott RN Specialty Vehicle Body Builder Hematology/Oncology 08/04/23 Joleen Jiang MD [address] [place] [address] Hematology/Oncology 08/04/23 Marta Moore, EFRAIN Specialty Vehicle Body Builder Hematology/Oncology 08/06/23 Shanique Vasquez LISW [address] [place] [address] Mechanic Foreman Oncology 08/20/23 Hotel Dining Room Cashier Relationship Specialty Start Date End Date Martine Marrufo, HOME CARE CHAPLAIN.SLOT MACHINE KEY PERSON [address] [place], [place] [phone] PCP - General Family Medicine 07/19/23 Sina Hackett MD [address] [place], [place] [phone] Family Medicine 07/19/23 Jessie Scott RN Specialty Vehicle Body Builder Hematology/Oncology 08/04/23 Joleen Jiang MD [address] [place] [address] Hematology/Oncology 08/04/23 Marta Moore, EFRAIN Specialty Vehicle Body Builder Hematology/Oncology 08/06/23 Shanique Vasquez LISW [address] [place] [address] Mechanic Foreman Oncology 08/20/23 Hotel Dining Room Cashier Relationship Specialty Start Date End Date Martine Marrufo, HOME CARE CHAPLAIN.SLOT MACHINE KEY PERSON [address] [place], [place] [phone] PCP - General Family Medicine 07/19/23 Sina Hackett MD [address] [place], [place] [phone] Family Medicine 07/19/23 Jessie Scott RN Specialty Vehicle Body Builder Hematology/Oncology 08/04/23 Joleen Jiang MD [address] [place] [address] Hematology/Oncology 08/04/23 Marta Moore, EFRAIN Specialty Vehicle Body Builder Hematology/Oncology 08/06/23 Shanique Vasquez LISW [address] [place] [address] Mechanic Foreman Oncology 08/20/23 Hotel Dining Room Cashier Relationship Specialty Start Date End Date Martine Marrufo, HOME CARE CHAPLAIN.SLOT MACHINE KEY PERSON [address] [place], [place] [phone] PCP - General Family Medicine 07/19/23 Sina Hackett MD [address] [place], [place] [phone] Family Medicine 07/19/23 Jessie Scott RN Specialty Vehicle Body Builder Hematology/Oncology 08/04/23 Joleen Jiang MD [address] [place] [address] Hematology/Oncology 08/04/23 Marta Moore, EFRAIN Specialty Vehicle Body Builder Hematology/Oncology 08/06/23 Shanique Vasquez LISW [address] [place] [address] Mechanic Foreman Oncology 08/20/23 Hotel Dining Room Cashier Relationship Specialty Start Date End Date Martine Marrufo, HOME CARE CHAPLAIN.SLOT MACHINE KEY PERSON [address] [place], [place] [phone] PCP - General Family Medicine 07/19/23 Sina Hackett MD [address] [place], [place] [phone] Family Medicine 07/19/23 Jessie Scott RN Specialty Vehicle Body Builder Hematology/Oncology 08/04/23 Joleen Jiang MD [address] [place] [address] Hematology/Oncology 08/04/23 Marta Moore, EFRAIN Specialty Vehicle Body Builder Hematology/Oncology 08/06/23 Shanique Vasquez LISW [address] [place] [address] Mechanic Foreman Oncology 08/20/23 Hotel Dining Room Cashier Relationship Specialty Start Date End Date Martine Marrufo, HOME CARE CHAPLAIN.SLOT MACHINE KEY PERSON [address] [place] [address] PCP - General Family Medicine 07/19/23 Sina Hackett MD [address] [place] [address] Family Medicine 07/19/23 Jessie Scott RN Specialty Vehicle Body Builder Hematology/Oncology 08/04/23 Joleen Jiang MD [address] [place] [address] Hematology/Oncology 08/04/23 Marta Moore, EFRAIN Specialty Vehicle Body Builder Hematology/Oncology 08/06/23 Shanique Vasquez LISW [address] [place] [address] Mechanic Foreman Oncology 08/20/23 Hotel Dining Room Cashier Relationship Specialty Start Date End Date Martine Marrufo, HOME CARE CHAPLAIN.SLOT MACHINE KEY PERSON [address] [place], [place] [phone] PCP - General Family Medicine 07/19/23 Sina Hackett MD [address] [place], [place] [phone] Family Medicine 07/19/23 Jessie Scott RN Specialty Vehicle Body Builder Hematology/Oncology 08/04/23 Joleen Jiang MD [address] [place] [address] Hematology/Oncology 08/04/23 Marta Moore, EFRAIN Specialty Vehicle Body Builder Hematology/Oncology 08/06/23 Shanique Vasquez LISW [address] [place] [address] Mechanic Foreman Oncology 08/20/23 Hotel Dining Room Cashier Relationship Specialty Start Date End Date Martine Marrufo, HOME CARE CHAPLAIN.SLOT MACHINE KEY PERSON [address] [place] [address] PCP - General Family Medicine 07/19/23 Sina Hackett MD [address] [place], [place] [phone] Family Medicine 07/19/23 Jessie Scott RN Specialty Vehicle Body Builder Hematology/Oncology 08/04/23 Joleen Jiang MD [address] [place] [address] Hematology/Oncology 08/04/23 Marta Moore, ERFAIN Specialty Vehicle Body Builder Hematology/Oncology 08/06/23 Shanique Vasquez LISW [address] [place] [address] Mechanic Foreman Oncology 08/20/23 Hotel Dining Room Cashier Relationship Specialty Start Date End Date Martine Marrufo, HOME CARE CHAPLAIN.SLOT MACHINE KEY PERSON [address] [place], [place] [phone] PCP - General Family Medicine 07/19/23 Sina Hackett MD [address] [place], [place] [phone] Family Medicine 07/19/23 Jessie Scott RN Specialty Vehicle Body Builder Hematology/Oncology 08/04/23 Joleen Jiang MD [address] [place] [address] Hematology/Oncology 08/04/23 Marta Moore, EFRAIN Specialty Vehicle Body Builder Hematology/Oncology 08/06/23 Shanique Vasquez LISW [address] [place] [address] Mechanic Foreman Oncology 08/20/23 Hotel Dining Room Cashier Relationship Specialty Start Date End Date Martine Marrufo, HOME CARE CHAPLAIN.SLOT MACHINE KEY PERSON [address] [place], [place] [phone] PCP - General Family Medicine 07/19/23 Sina Hackett MD [address] [place] [address] Family Medicine 07/19/23 Jessie Scott RN Specialty Vehicle Body Builder Hematology/Oncology 08/04/23 Joleen Jiang MD [address] [place] [address] Hematology/Oncology 08/04/23 Marta Moore RN Specialty Vehicle Body Builder Hematology/Oncology 08/06/23 Shanique Vasquez LISW [address] [place] [address] Mechanic Foreman Oncology 08/20/23 Hotel Dining Room Cashier Relationship Specialty Start Date End Date Martine Marrufo, HOME CARE CHAPLAIN.SLOT MACHINE KEY PERSON [address] [place] [address] PCP - General Family Medicine 07/19/23 Sina Hackett MD [address] [place] [address] Family Medicine 07/19/23 Jessie Scott RN Specialty Vehicle Body Builder Hematology/Oncology 08/04/23 Joleen Jiang MD [address] [place] [address] Hematology/Oncology 08/04/23 Marta Moore, EFRAIN Specialty Vehicle Body Builder Hematology/Oncology 08/06/23 Shanique Vasquez LISW [address] [place] [address] Mechanic Foreman Oncology 08/20/23 Hotel Dining Room Cashier Relationship Specialty Start Date End Date Martine Marrufo, HOME CARE CHAPLAIN.SLOT MACHINE KEY PERSON [address] [place], [place] [phone] PCP - General Family Medicine 07/19/23 Sina Hackett MD [address] [place] [address] Family Medicine 07/19/23 Jessie Scott RN Specialty Vehicle Body Builder Hematology/Oncology 08/04/23 Joleen Jiang MD [address] [place] [address] Hematology/Oncology 08/04/23 Marta Moore RN Specialty Vehicle Body Builder Hematology/Oncology 08/06/23 Shanique Vasquez LISW [address] [place] [address] Mechanic Foreman Oncology 08/20/23 Hotel Dining Room Cashier Relationship Specialty Start Date End Date Martine Marrufo, HOME CARE CHAPLAIN.SLOT MACHINE KEY PERSON [address] [place] [address] PCP - General Family Medicine 07/19/23 Sina Hackett MD [address] [place] [address] Family Medicine 07/19/23 Jessie Scott RN Specialty Vehicle Body Builder Hematology/Oncology 08/04/23 Joleen Jiang MD [address] [place] [address] Hematology/Oncology 08/04/23 Marta Moore, EFRAIN Specialty Vehicle Body Builder Hematology/Oncology 08/06/23 Shanique Vasquez LISW [address] [place] [address] Mechanic Foreman Oncology 08/20/23 Hotel Dining Room Cashier Relationship Specialty Start Date End Date Martine Marrufo, HOME CARE CHAPLAIN.SLOT MACHINE KEY PERSON [address] [place] [address] PCP - General Family Medicine 07/19/23 Sina Hackett MD [address] [place], [place] [phone] Family Medicine 07/19/23 Jessie Scott RN Specialty Vehicle Body Builder Hematology/Oncology 08/04/23 Joleen Jiang MD [address] [place] [address] Hematology/Oncology 08/04/23 Marta Moore RN Specialty Vehicle Body Builder Hematology/Oncology 08/06/23 Shanique Vasquez LISW [address] [place] [address] Mechanic Foreman Oncology 08/20/23 Hotel Dining Room Cashier Relationship Specialty Start Date End Date Martine Marrufo, HOME CARE CHAPLAIN.SLOT MACHINE KEY PERSON [address] [place] [address] PCP - General Family Medicine 07/19/23 Sina Hackett MD [address] [place], [place] [phone] Family Medicine 07/19/23 Jessie Scott RN Specialty Vehicle Body Builder Hematology/Oncology 08/04/23 Joleen Jiang MD [address] [place] [address] Hematology/Oncology 08/04/23 Marta Moore, RN Specialty Vehicle Body Builder Hematology/Oncology 08/06/23 Shanique Vasquez LISW [address] [place] [address] Mechanic Foreman Oncology 08/20/23 Hotel Dining Room Cashier Relationship Specialty Start Date End Date Martine Marrufo, HOME CARE CHAPLAIN.SLOT MACHINE KEY PERSON [address] [place], [place] [phone] PCP - General Family Medicine 07/19/23 Sina Hackett MD [address] [place], [place] [phone] Family Medicine 07/19/23 Jessie Scott RN Specialty Vehicle Body Builder Hematology/Oncology 08/04/23 Joleen Jiang MD [address] [place] [address] Hematology/Oncology 08/04/23 Marta Moore, EFRAIN Specialty Vehicle Body Builder Hematology/Oncology 08/06/23 Shanique Vasquez LISW [address] [place] [address] Mechanic Foreman Oncology 08/20/23 Hotel Dining Room Cashier Relationship Specialty Start Date End Date Martine Marrufo, HOME CARE CHAPLAIN.SLOT MACHINE KEY PERSON [address] [place], [place] [phone] PCP - General Family Medicine 07/19/23 Sina Hackett MD [address] [place], [place] [phone] Family Medicine 07/19/23 Jessie Scott RN Specialty Vehicle Body Builder Hematology/Oncology 08/04/23 Joleen Jiang MD [address] [place] [address] Hematology/Oncology 08/04/23 Marta Moore RN Specialty Vehicle Body Builder Hematology/Oncology 08/06/23 Shanique Vasquez LISW [address] [place] [address] Mechanic Foreman Oncology 08/20/23 Hotel Dining Room Cashier Relationship Specialty Start Date End Date Martine Marrufo, HOME CARE CHAPLAIN.SLOT MACHINE KEY PERSON [address] [place], [place] [phone] PCP - General Family Medicine 07/19/23 Sina Hackett MD [address] [place], [place] [phone] Family Medicine 07/19/23 Jessie Scott RN Specialty Vehicle Body Builder Hematology/Oncology 08/04/23 Joleen Jiang MD [address] [place] [address] Hematology/Oncology 08/04/23 Marta Moore, EFRAIN Specialty Vehicle Body Builder Hematology/Oncology 08/06/23 Shanique Vasquez LISW [address] [place] [address] Mechanic Foreman Oncology 08/20/23 Hotel Dining Room Cashier Relationship Specialty Start Date End Date Martine Marrufo, HOME CARE CHAPLAIN.SLOT MACHINE KEY PERSON [address] [place], [place] [phone] PCP - General Family Medicine 07/19/23 Sina Hackett MD [address] [place] [address] Family Medicine 07/19/23 Joleen Jiang MD [address] [place] [address] Hematology/Oncology 08/04/23 Marta Moore, EFRAIN Specialty Vehicle Body Builder Hematology/Oncology 08/06/23 Shanique Vasquez LISW [address] [place] [address] Mechanic Foreman Oncology 08/20/23 Hotel Dining Room Cashier Relationship Specialty Start Date End Date Martine Marrufo, HOME CARE CHAPLAIN.SLOT MACHINE KEY PERSON [address] [place] [address] PCP - General Family Medicine 07/19/23 Sina Hackett MD [address] [place] [address] Family Medicine 07/19/23 Joleen Jiang MD [address] [place] [address] Hematology/Oncology 08/04/23 Marta Moore, EFRAIN Specialty Vehicle Body Builder Hematology/Oncology 08/06/23 Shanique Vasquez LISW [address] [place] [address] Mechanic Foreman Oncology 08/20/23 Hotel Dining Room Cashier Relationship Specialty Start Date End Date Martine Marrufo, HOME CARE CHAPLAIN.SLOT MACHINE KEY PERSON [address] [place], [place] [phone] PCP - General Family Medicine 07/19/23 Sina Hackett MD [address] [place], [place] [phone] Family Medicine 07/19/23 Joleen Jiang MD [address] [place] [address] Hematology/Oncology 08/04/23 Marta Moore, EFRAIN Specialty Vehicle Body Builder Hematology/Oncology 08/06/23 Shanique Vasquez LISW [address] [place] [address] Mechanic Foreman Oncology 08/20/23 Hotel Dining Room Cashier Relationship Specialty Start Date End Date Martine Marrufo, HOME CARE CHAPLAIN.SLOT MACHINE KEY PERSON [address] [place], [place] [phone] PCP - General Family Medicine 07/19/23 Sina Hackett MD [address] [place], [place] [phone] Family Medicine 07/19/23 Joleen Jiang MD [address] [place] [address] Hematology/Oncology 08/04/23 Marta Moore, EFRAIN Specialty Vehicle Body Builder Hematology/Oncology 08/06/23 Shanique Vasquez LISW [address] [place], [place] [phone] Mechanic Foreman Oncology 08/20/23 Hotel Dining Room Cashier Relationship Specialty Start Date End Date Martine Marrufo, HOME CARE CHAPLAIN.SLOT MACHINE KEY PERSON [address] [place], [place] [phone] PCP - General Family Medicine 07/19/23 Sina Hackett MD [address] [place], [place] [phone] Family Medicine 07/19/23 Joleen Jiang MD [address] [place] [address] Hematology/Oncology 08/04/23 Marta Moore, EFRAIN Specialty Vehicle Body Builder Hematology/Oncology 08/06/23 Shanique Vasquez LISW [address] [place], [place] [phone] Mechanic Foreman Oncology 08/20/23 Hotel Dining Room Cashier Relationship Specialty Start Date End Date Martine Marrufo, HOME CARE CHAPLAIN.SLOT MACHINE KEY PERSON [address] [place] [address] PCP - General Family Medicine 07/19/23 Sina Hackett MD [address] [place] [address] Family Medicine 07/19/23 Joleen Jiang MD [address] [place] [address] Hematology/Oncology 08/04/23 Marta Moore RN Specialty Vehicle Body Builder Hematology/Oncology 08/06/23 Shanique Vasquez LISW [address] [place] [address] Mechanic Foreman Oncology 08/20/23 Hotel Dining Room Cashier Relationship Specialty Start Date End Date Martine Marrufo, HOME CARE CHAPLAIN.SLOT MACHINE KEY PERSON [address] [place] [address] PCP - General Family Medicine 07/19/23 Sina Hackett MD [address] [place], [place] [phone] Family Medicine 07/19/23 Joleen Jiang MD [address] [place] [address] Hematology/Oncology 08/04/23 Marta Moore, EFRAIN Specialty Vehicle Body Builder Hematology/Oncology 08/06/23 Shanique Vasquez LISW [address] [place] [address] Mechanic Foreman Oncology 08/20/23 Hotel Dining Room Cashier Relationship Specialty Start Date End Date Martine Marrufo, HOME CARE CHAPLAIN.SLOT MACHINE KEY PERSON [address] [place] [address] PCP - General Family Medicine 07/19/23 Sina Hackett MD [address] [place] [address] Family Medicine 07/19/23 Joleen Jiang MD [address] [place] [address] Hematology/Oncology 08/04/23 Marta Moore, EFRAIN Specialty Vehicle Body Builder Hematology/Oncology 08/06/23 Shanique Vasquez LISW [address] [place] [address] Mechanic Foreman Oncology 08/20/23 Hotel Dining Room Cashier Relationship Specialty Start Date End Date Martine Marrufo, HOME CARE CHAPLAIN.SLOT MACHINE KEY PERSON [address] [place], [place] [phone] PCP - General Family Medicine 07/19/23 Sina Hackett MD [address] [place], [place] [phone] Family Medicine 07/19/23 Joleen Jiang MD [address] [place] [address] Hematology/Oncology 08/04/23 Marta Moore, EFRAIN Specialty Vehicle Body Builder Hematology/Oncology 08/06/23 Shanique Vasquez LISW [address] [place] [address] Mechanic Foreman Oncology 08/20/23 Hotel Dining Room Cashier Relationship Specialty Start Date End Date Martine Marrufo, HOME CARE CHAPLAIN.SLOT MACHINE KEY PERSON [address] [place], [place] [phone] PCP - General Family Medicine 07/19/23 Sina Hackett MD [address] [place], [place] [phone] Family Medicine 07/19/23 Joleen Jiang MD [address] [place] [address] Hematology/Oncology 08/04/23 Marta Moore, EFRAIN Specialty Vehicle Body Builder Hematology/Oncology 08/06/23 Shanique Vasquez LISW [address] [place] [address] Mechanic Foreman Oncology 08/20/23 Hotel Dining Room Cashier Relationship Specialty Start Date End Date Martine Marrufo, HOME CARE CHAPLAIN.SLOT MACHINE KEY PERSON [address] [place], [place] [phone] PCP - General Family Medicine 07/19/23 Sina Hackett MD [address] [place], [place] [phone] Family Medicine 07/19/23 Joleen Jiang MD [address] [place] [address] Hematology/Oncology 08/04/23 Marta Moore, RN Specialty Vehicle Body Builder Hematology/Oncology 08/06/23 Shanique Vasquez LISW [address] [place] [address] Mechanic Foreman Oncology 08/20/23 Anjelica Pereira RN Specialty Vehicle Body Builder Hematology/Oncology 04/30/24 Hotel Dining Room Cashier Relationship Specialty Start Date End Date Martine Marrufo, HOME CARE CHAPLAIN.SLOT MACHINE KEY PERSON [address] [place], [place] [phone] PCP - General Family Medicine 07/19/23 Sina Hackett MD [address] [place], [place] [phone] Family Medicine 07/19/23 Jessie Scott RN Specialty Vehicle Body Builder Hematology/Oncology 08/04/23 03/24/24 Joleen Jiang MD [address] [place] [address] Hematology/Oncology 08/04/23 Marta Moore, EFRAIN Specialty Vehicle Body Builder Hematology/Oncology 08/06/23 Shanique Vasquez LISW [address] [place] [address] Mechanic Foreman Oncology 08/20/23 Hotel Dining Room Cashier Relationship Specialty Start Date End Date Martine Marrufo, HOME CARE CHAPLAIN.SLOT MACHINE KEY PERSON [address] [place], [place] [phone] PCP - General Family Medicine 07/19/23 Sina Hackett MD [address] [place] [address] Family Medicine 07/19/23 Jessie Scott RN Specialty Vehicle Body Builder Hematology/Oncology 08/04/23 03/24/24 Joleen Jiang MD [address] [place] [address] Hematology/Oncology 08/04/23 Marta Moore, EFRAIN Specialty Vehicle Body Builder Hematology/Oncology 08/06/23 Shanique Vasquez LISW [address] [place] [address] Mechanic Foreman Oncology 08/20/23 Hotel Dining Room Cashier Relationship Specialty Start Date End Date Martine Marrufo, HOME CARE CHAPLAIN.SLOT MACHINE KEY PERSON [address] [place] [address] PCP - General Family Medicine 07/19/23 Sina Hackett MD [address] [place] [address] Family Medicine 07/19/23 Jessie Scott RN Specialty Vehicle Body Builder Hematology/Oncology 08/04/23 03/24/24 Joleen Jiang MD [address] [place] [address] Hematology/Oncology 08/04/23 Marta Moore, EFRAIN Specialty Vehicle Body Builder Hematology/Oncology 08/06/23 Shanique Vasquez LISW [address] [place] [address] Mechanic Foreman Oncology 08/20/23 Hotel Dining Room Cashier Relationship Specialty Start Date End Date Martine Marrufo, HOME CARE CHAPLAIN.SLOT MACHINE KEY PERSON [address] [place], [place] [phone] PCP - General Family Medicine 07/19/23 Sina Hackett MD [address] [place], [place] [phone] Family Medicine 07/19/23 Joleen Jiang MD [address] [place] [address] Hematology/Oncology 08/04/23 Marta Moore, EFRAIN Specialty Vehicle Body Builder Hematology/Oncology 08/06/23 Shanique Vasquez LISW [address] [place] [address] Mechanic Foreman Oncology 08/20/23 Anjelica Pereira, RN Specialty Vehicle Body Builder Hematology/Oncology 04/30/24 Hotel Dining Room Cashier Relationship Specialty Start Date End Date Martine Marrufo, HOME CARE CHAPLAIN.SLOT MACHINE KEY PERSON [address] [place], [place] [phone] PCP - General Family Medicine 07/19/23 Sina Hackett MD [address] [place], [place] [phone] Family Medicine 07/19/23 Joleen Jiang MD [address] [place] [address] Hematology/Oncology 08/04/23 Marta Moore, EFRAIN Specialty Vehicle Body Builder Hematology/Oncology 08/06/23 Shanique Vasquez LISW [address] [place] [address] Mechanic Foreman Oncology 08/20/23 Anjelica Pereira, RN Specialty Vehicle Body Builder Hematology/Oncology 04/30/24 Hotel Dining Room Cashier Relationship Specialty Start Date End Date Martine Marrufo, HOME CARE CHAPLAIN.SLOT MACHINE KEY PERSON [address] [place], [place] [phone] PCP - General Family Medicine 07/19/23 Sina Hackett MD [address] [place] [address] Family Medicine 07/19/23 Joleen Jiang MD [address] [place] [address] Hematology/Oncology 08/04/23 Marta Moore, EFRAIN Specialty Vehicle Body Builder Hematology/Oncology 08/06/23 Shanique Vasquez LISW [address] [place] [address] Mechanic Foreman Oncology 08/20/23 Anjelica Pereira, EFRAIN Specialty Vehicle Body Builder Hematology/Oncology 04/30/24 Hotel Dining Room Cashier Relationship Specialty Start Date End Date Martine Marrufo, HOME CARE CHAPLAIN.SLOT MACHINE KEY PERSON [address] [place] [address] PCP - General Family Medicine 07/19/23 Sina Hackett MD [address] [place] [address] Family Medicine 07/19/23 Joleen Jiang MD [address] [place] [address] Hematology/Oncology 08/04/23 Marta Moore, EFRAIN Specialty Vehicle Body Builder Hematology/Oncology 08/06/23 Shanique Vasquez LISW [address] [place] [address] Mechanic Foreman Oncology 08/20/23 Anjelica Pereira, EFRAIN Specialty Vehicle Body Builder Hematology/Oncology 04/30/24 Hotel Dining Room Cashier Relationship Specialty Start Date End Date Martine Marrufo, HOME CARE CHAPLAIN.SLOT MACHINE KEY PERSON [address] [place] [address] PCP - General Family Medicine 07/19/23 Sina Hackett MD [address] [place] [address] Family Medicine 07/19/23 Jessie Scott RN Specialty Vehicle Body Builder Hematology/Oncology 08/04/23 Joleen Jiang MD [address] [place] [address] Hematology/Oncology 08/04/23 Marta Moore RN Specialty Vehicle Body Builder Hematology/Oncology 08/06/23 Shanique Vasquez LISW [address] [place] [address] Mechanic Foreman Oncology 08/20/23 Hotel Dining Room Cashier Relationship Specialty Start Date End Date Martine Marrufo, HOME CARE CHAPLAIN.SLOT MACHINE KEY PERSON [address] [place] [address] PCP - General Family Medicine 07/19/23 Sina Hackett MD [address] [place], [place] [phone] Family Medicine 07/19/23 Joleen Jiang MD [address] [place] [address] Hematology/Oncology 08/04/23 Marta Moore EFRAIN Specialty Vehicle Body Builder Hematology/Oncology 08/06/23 Shanique Vasquez LISW [address] [place] [address] Mechanic Foreman Oncology 08/20/23 Anjelica Pereira, RN Specialty Vehicle Body Builder Hematology/Oncology 04/30/24 Hotel Dining Room Cashier Relationship Specialty Start Date End Date Martine Marrufo, HOME CARE CHAPLAIN.SLOT MACHINE KEY PERSON [address] [place], [place] [phone] PCP - General Family Medicine 07/19/23 Sina Hackett MD [address] [place], [place] [phone] Family Medicine 07/19/23 Joleen Jiang MD [address] [place] [address] Hematology/Oncology 08/04/23 Marta Moore, EFRAIN Specialty Vehicle Body Builder Hematology/Oncology 08/06/23 Shanique Vasquez LISW [address] [place] [address] Mechanic Foreman Oncology 08/20/23 Anjelica Pereira, EFRAIN Specialty Vehicle Body Builder Hematology/Oncology 04/30/24 Hotel Dining Room Cashier Relationship Specialty Start Date End Date Martine Marrufo, HOME CARE CHAPLAIN.SLOT MACHINE KEY PERSON [address] [place] [address] PCP - General Family Medicine 07/19/23 Sina Hackett MD [address] [place], [place] [phone] Family Medicine 07/19/23 Joleen Jiang MD [address] [place] [address] Hematology/Oncology 08/04/23 Marta Moore, EFRAIN Specialty Vehicle Body Builder Hematology/Oncology 08/06/23 Shanique Vasquez LISW [address] [place] [address] Mechanic Foreman Oncology 08/20/23 Anjelica Pereira, RN Specialty Vehicle Body Builder Hematology/Oncology 04/30/24 Hotel Dining Room Cashier Relationship Specialty Start Date End Date Martine Marrufo, HOME CARE CHAPLAIN.SLOT MACHINE KEY PERSON [address] [place] [address] PCP - General Family Medicine 07/19/23 Sina Hackett MD [address] [place] [address] Family Medicine 07/19/23 Joleen Jiang MD [address] [place] [address] Hematology/Oncology 08/04/23 Marta Moore, EFRAIN Specialty Vehicle Body Builder Hematology/Oncology 08/06/23 Shanique Vasquez LISW [address] [place] [address] Mechanic Foreman Oncology 08/20/23 Anjelica Pereira, RN Specialty Vehicle Body Builder Hematology/Oncology 04/30/24 Hotel Dining Room Cashier Relationship Specialty Start Date End Date Martine Marrufo, HOME CARE CHAPLAIN.SLOT MACHINE KEY PERSON [address] [place], [place] [phone] PCP - General Family Medicine 07/19/23 Sina Hackett MD [address] [place], [place] [phone] Family Medicine 07/19/23 Joleen Jiang MD [address] [place] [address] Hematology/Oncology 08/04/23 Marta Moore, EFRAIN Specialty Vehicle Body Builder Hematology/Oncology 08/06/23 Shanique Vasquez LISW [address] [place] [address] Mechanic Foreman Oncology 08/20/23 Anjelica Pereira, EFRAIN Specialty Vehicle Body Builder Hematology/Oncology 04/30/24 Hotel Dining Room Cashier Relationship Specialty Start Date End Date Martine Marrufo, HOME CARE CHAPLAIN.SLOT MACHINE KEY PERSON [address] [place], [place] [phone] PCP - General Family Medicine 07/19/23 Sina Hackett MD [address] [place], [place] [phone] Family Medicine 07/19/23 Joleen Jiang MD [address] [place] [address] Hematology/Oncology 08/04/23 Marta Moore, EFRAIN Specialty Vehicle Body Builder Hematology/Oncology 08/06/23 Shanique Vasquez, TOUR CONSULTANT [address] [place] [address] Mechanic Foreman Oncology 08/20/23 Anjelica Pereira, RN Specialty Vehicle Body Builder Hematology/Oncology 04/30/24 Hotel Dining Room Cashier Relationship Specialty Start Date End Date Martine Marrufo, HOME CARE CHAPLAIN.SLOT MACHINE KEY PERSON [address] [place], [place] [phone] PCP - General Family Medicine 07/19/23 Sina Hackett MD [address] [place], [place] [phone] Family Medicine 07/19/23 Joleen Jiang MD [address] [place] [address] Hematology/Oncology 08/04/23 Marta Moore, EFRAIN Specialty Vehicle Body Builder Hematology/Oncology 08/06/23 Shanique Vasquez LISW [address] [place], [place] [phone] Mechanic Foreman Oncology 08/20/23 Anjelica Pereira, RN Specialty Vehicle Body Builder Hematology/Oncology 04/30/24 Hotel Dining Room Cashier Relationship Specialty Start Date End Date Martine Marrufo, HOME CARE CHAPLAIN.SLOT MACHINE KEY PERSON [address] [place], [place] [phone] PCP - General Family Medicine 07/19/23 Sina Hackett MD [address] [place], [place] [phone] Family Medicine 07/19/23 Joleen Jiang MD [address] [place] [address] Hematology/Oncology 08/04/23 Marta Moore, EFRAIN Specialty Vehicle Body Builder Hematology/Oncology 08/06/23 Shanique Vasquez LISW [address] [place] [address] Mechanic Foreman Oncology 08/20/23 Anjelica Pereira, EFRAIN Specialty Vehicle Body Builder Hematology/Oncology 04/30/24 Hotel Dining Room Cashier Relationship Specialty Start Date End Date Martine Marrufo, HOME CARE CHAPLAIN.SLOT MACHINE KEY PERSON [address] [place], [place] [phone] PCP - General Family Medicine 07/19/23 Sina Hackett MD [address] [place], [place] [phone] Family Medicine 07/19/23 Joleen Jiang MD [address] [place] [address] Hematology/Oncology 08/04/23 Marta Moore, EFRAIN Specialty Vehicle Body Builder Hematology/Oncology 08/06/23 Shanique Vasquez LISW [address] [place] [address] Mechanic Foreman Oncology 08/20/23 Anjelica Pereira, EFRAIN Specialty Vehicle Body Builder Hematology/Oncology 04/30/24 Hotel Dining Room Cashier Relationship Specialty Start Date End Date Martine Marrufo, HOME CARE CHAPLAIN.SLOT MACHINE KEY PERSON [address] [place], [place] [phone] PCP - General Family Medicine 07/19/23 Sina Hackett MD [address] [place], [place] [phone] Family Medicine 07/19/23 Joleen Jiang MD [address] [place] [address] Hematology/Oncology 08/04/23 Marta Moore RN Specialty Vehicle Body Builder Hematology/Oncology 08/06/23 Shanique Vasquez LISW [address] [place] [address] Mechanic Foreman Oncology 08/20/23 Anjelica Pereira, EFRAIN Specialty Vehicle Body Builder Hematology/Oncology 04/30/24 Hotel Dining Room Cashier Relationship Specialty Start Date End Date Martine Marrufo, HOME CARE CHAPLAIN.SLOT MACHINE KEY PERSON [address] [place], [place] [phone] PCP - General Family Medicine 07/19/23 Sina Hackett MD [address] [place] [address] Family Medicine 07/19/23 Joleen Jiang MD [address] [place] [address] Hematology/Oncology 08/04/23 Marta Moore, EFRAIN Specialty Vehicle Body Builder Hematology/Oncology 08/06/23 Shanique Vasquez LISW [address] [place] [address] Mechanic Foreman Oncology 08/20/23 Anjelica Pereira, EFRAIN Specialty Vehicle Body Builder Hematology/Oncology 04/30/24 Hotel Dining Room Cashier Relationship Specialty Start Date End Date Martine Marrufo, HOME CARE CHAPLAIN.SLOT MACHINE KEY PERSON [address] [place] [address] PCP - General Family Medicine 07/19/23 Sina Hackett MD [address] [place] [address] Family Medicine 07/19/23 Joleen Jiang MD [address] [place] [address] Hematology/Oncology 08/04/23 Marta Moore, EFRAIN Specialty Vehicle Body Builder Hematology/Oncology 08/06/23 Shanique Vasquez LISW [address] [place], [place] [phone] Mechanic Foreman Oncology 08/20/23 Anjelica Pereira, EFRAIN Specialty Vehicle Body Builder Hematology/Oncology 04/30/24 Hotel Dining Room Cashier Relationship Specialty Start Date End Date Martine Marrufo, HOME CARE CHAPLAIN.SLOT MACHINE KEY PERSON [address] [place], [place] [phone] PCP - General Family Medicine 07/19/23 Sina Hackett MD [address] [place], [place] [phone] Family Medicine 07/19/23 Joleen Jiang MD [address] [place] [address] Hematology/Oncology 08/04/23 Marta Moore, RN Specialty Vehicle Body Builder Hematology/Oncology 08/06/23 Shanique Vasquez LISW [address] [place] [address] Mechanic Foreman Oncology 08/20/23 Anjelica Pereira, RN Specialty Vehicle Body Builder Hematology/Oncology 04/30/24 Hotel Dining Room Cashier Relationship Specialty Start Date End Date Martine Marrufo, HOME CARE CHAPLAIN.SLOT MACHINE KEY PERSON [address] [place], [place] [phone] PCP - General Family Medicine 07/19/23 Sina Hackett MD [address] [place], [place] [phone] Family Medicine 07/19/23 Joleen Jiang MD [address] [place], [place] [phone] Hematology/Oncology 08/04/23 Marta Moore, EFRAIN Specialty Vehicle Body Builder Hematology/Oncology 08/06/23 Shanique Vasquez LISW [address] [place] [address] Mechanic Foreman Oncology 08/20/23 Anjelica Pereira, EFRAIN Specialty Vehicle Body Builder Hematology/Oncology 04/30/24 Hotel Dining Room Cashier Relationship Specialty Start Date End Date Martine Marrufo, HOME CARE CHAPLAIN.SLOT MACHINE KEY PERSON [address] [place], [place] [phone] PCP - General Family Medicine 07/19/23 Sina Hackett MD [address] [place], [place] [phone] Family Medicine 07/19/23 Jessie Scott RN Specialty Vehicle Body Builder Hematology/Oncology 08/04/23 Joleen Jiang MD [address] [place] [address] Hematology/Oncology 08/04/23 Marta Moore RN Specialty Vehicle Body Builder Hematology/Oncology 08/06/23 Shanique Vasquez LISW [address] [place], [place] 8242195 Mechanic Foreman Oncology 08/20/23 Hotel Dining Room Cashier Relationship Specialty Start Date End Date Martine Marrufo, HOME CARE CHAPLAIN.SLOT MACHINE KEY PERSON [address] [place], [place] [phone] PCP - General Family Medicine 07/19/23 Sina Hackett MD [address] [place], [place] [phone] Family Medicine 07/19/23 Joleen Jiang MD [address] [place], [place] [phone] Hematology/Oncology 08/04/23 Marta Moore, EFRAIN Specialty Vehicle Body Builder Hematology/Oncology 08/06/23 Shanique Vasquez LISW [address] [place], [place] 0207895 Mechanic Foreman Oncology 08/20/23 Anjelica Pereira RN Specialty Vehicle Body Builder Hematology/Oncology 04/30/24 Hotel Dining Room Cashier Relationship Specialty Start Date End Date Martine Marrufo, HOME CARE CHAPLAIN.SLOT MACHINE KEY PERSON [address] [place], [place] [phone] PCP - General Family Medicine 07/19/23 Sina Hackett MD [address] [place], [place] [phone] Family Medicine 07/19/23 Joleen Jiang MD [address] [place] [address] Hematology/Oncology 08/04/23 Marta Moore, EFRAIN Specialty Vehicle Body Builder Hematology/Oncology 08/06/23 Shanique Vasquez LISW [address] [place] [address] Mechanic Foreman Oncology 08/20/23 Anjelica Pereira RN Specialty Vehicle Body Builder Hematology/Oncology 04/30/24 Hotel Dining Room Cashier Relationship Specialty Start Date End Date Martine Marrufo, HOME CARE CHAPLAIN.SLOT MACHINE KEY PERSON [address] [place], [place] [phone] PCP - General Family Medicine 07/19/23 Sina Hackett MD [address] [place], [place] [phone] Family Medicine 07/19/23 Joleen Jiang MD [address] [place] [address] Hematology/Oncology 08/04/23 Marta Moore, EFRAIN Specialty Vehicle Body Builder Hematology/Oncology 08/06/23 Shanique Vasquez LISW [address] [place] [address] Mechanic Foreman Oncology 08/20/23 Anjelica Pereira, EFRAIN Specialty Vehicle Body Builder Hematology/Oncology 04/30/24 Hotel Dining Room Cashier Relationship Specialty Start Date End Date Martine Marrufo, HOME CARE CHAPLAIN.SLOT MACHINE KEY PERSON [address] [place] [address] PCP - General Family Medicine 07/19/23 Sina Hackett MD [address] [place] [address] Family Medicine 07/19/23 Joleen Jiang MD [address] [place] [address] Hematology/Oncology 08/04/23 Marta Moore RN Specialty Vehicle Body Builder Hematology/Oncology 08/06/23 Shanique Vasquez LISW [address] [place] [address] Mechanic Foreman Oncology 08/20/23 Anjelica Pereira, EFRAIN Specialty Vehicle Body Builder Hematology/Oncology 04/30/24 Hotel Dining Room Cashier Relationship Specialty Start Date End Date Martine Marrufo, HOME CARE CHAPLAIN.SLOT MACHINE KEY PERSON [address] [place] [address] PCP - General Family Medicine 07/19/23 Sina Hackett MD [address] [place] [address] Family Medicine 07/19/23 Joleen Jiang MD [address] [place] [address] Hematology/Oncology 08/04/23 Marta Moore, EFRAIN Specialty Vehicle Body Builder Hematology/Oncology 08/06/23 Shanique Vasquez LISW [address] [place] [address] Mechanic Foreman Oncology 08/20/23 Anjelica Pereira, RN Specialty Vehicle Body Builder Hematology/Oncology 04/30/24 Hotel Dining Room Cashier Relationship Specialty Start Date End Date Martine Marrufo, HOME CARE CHAPLAIN.SLOT MACHINE KEY PERSON [address] [place] [address] PCP - General Family Medicine 07/19/23 Sina Hackett MD [address] [place] [address] Family Medicine 07/19/23 Joleen Jiang MD [address] [place] [address] Hematology/Oncology 08/04/23 Marta Moore, EFRAIN Specialty Vehicle Body Builder Hematology/Oncology 08/06/23 Shanique Vasquez LISW [address] [place] [address] Mechanic Foreman Oncology 08/20/23 Anjelica Pereira, RN Specialty Vehicle Body Builder Hematology/Oncology 04/30/24 Hotel Dining Room Cashier Relationship Specialty Start Date End Date Martine Marrufo, HOME CARE CHAPLAIN.SLOT MACHINE KEY PERSON [address] [place] [address] PCP - General Family Medicine 07/19/23 Sina Hackett MD [address] [place] [address] Family Medicine 07/19/23 Joleen Jiang MD [address] [place] [address] Hematology/Oncology 08/04/23 Marta Moore RN Specialty Vehicle Body Builder Hematology/Oncology 08/06/23 Shanique Vasquez LISW [address] [place], [place] [phone] Mechanic Foreman Oncology 08/20/23 Anjelica Pereira, EFRAIN Specialty Vehicle Body Builder Hematology/Oncology 04/30/24 Hotel Dining Room Cashier Relationship Specialty Start Date End Date Martine Marrufo, HOME CARE CHAPLAIN.SLOT MACHINE KEY PERSON [address] [place], [place] [phone] PCP - General Family Medicine 07/19/23 Sina Hackett MD [address] [place], [place] [phone] Family Medicine 07/19/23 Joleen Jiang MD [address] [place] [address] Hematology/Oncology 08/04/23 Marta Moore, RN Specialty Vehicle Body Builder Hematology/Oncology 08/06/23 Shanique Vasquez LISW [address] [place], [place] [phone] Mechanic Foreman Oncology 08/20/23 Anjelica Pereira, RN Specialty Vehicle Body Builder Hematology/Oncology 04/30/24 Hotel Dining Room Cashier Relationship Specialty Start Date End Date Martine Marrufo, HOME CARE CHAPLAIN.SLOT MACHINE KEY PERSON [address] [place] [address] PCP - General Family Medicine 07/19/23 Sina Hackett MD [address] [place], [place] [phone] Family Medicine 07/19/23 Joleen Jiang MD [address] [place] [address] Hematology/Oncology 08/04/23 Marta Moore, EFRAIN Specialty Vehicle Body Builder Hematology/Oncology 08/06/23 Shanique Vsaquez LISW [address] [place] [address] Mechanic Foreman Oncology 08/20/23 Anjelica Pereira, EFRAIN Specialty Vehicle Body Builder Hematology/Oncology 04/30/24 Hotel Dining Room Cashier Relationship Specialty Start Date End Date Martine Marrufo, HOME CARE CHAPLAIN.SLOT MACHINE KEY PERSON [address] [place], [place] [phone] PCP - General Family Medicine 07/19/23 Sina Hackett MD [address] [place], [place] [phone] Family Medicine 07/19/23 Joleen Jiang MD [address] [place] [address] Hematology/Oncology 08/04/23 Marta Moore, EFRAIN Specialty Vehicle Body Builder Hematology/Oncology 08/06/23 Shanique Vasquez LISW [address] [place] [address] Mechanic Foreman Oncology 08/20/23 Anjelica Pereira, RN Specialty Vehicle Body Builder Hematology/Oncology 04/30/24 Hotel Dining Room Cashier Relationship Specialty Start Date End Date Martine Marrufo, HOME CARE CHAPLAIN.SLOT MACHINE KEY PERSON [address] [place] [address] PCP - General Family Medicine 07/19/23 Sina Hackett MD [address] [place], [place] [phone] Family Medicine 07/19/23 Joleen Jiang MD [address] [place] [address] Hematology/Oncology 08/04/23 Marta Moore, EFRAIN Specialty Vehicle Body Builder Hematology/Oncology 08/06/23 Shanique Vasquez LISW [address] [place] [address] Mechanic Foreman Oncology 08/20/23 Anjelica Pereira, RN Specialty Vehicle Body Builder Hematology/Oncology 04/30/24 Hotel Dining Room Cashier Relationship Specialty Start Date End Date Martine Marrufo, [employer].SLOT MACHINE KEY PERSON [address] [place] [address] PCP - General Family Medicine 07/19/23 Sina Hackett MD [address] [place] [address] Family Medicine 07/19/23 Joleen Jiang MD [address] [place] [address] Hematology/Oncology 08/04/23 Marta Moore, EFRAIN Specialty Vehicle Body Builder Hematology/Oncology 08/06/23 Shanique Vasquez LISW [address] [place] [address] Mechanic Foreman Oncology 08/20/23 Anjelica Pereira, RN Specialty Vehicle Body Builder Hematology/Oncology 04/30/24 Hotel Dining Room Cashier Relationship Specialty Start Date End Date Martine Marrufo, [employer].SLOT MACHINE KEY PERSON [address] [place] [address] PCP - General Family Medicine 07/19/23 Sina Hackett MD [address] [place] [address] Family Medicine 07/19/23 Joleen Jiang MD [address] [place] [address] Hematology/Oncology 08/04/23 Marta Moore, EFRAIN Specialty Vehicle Body Builder Hematology/Oncology 08/06/23 Shanique Vasquez LISW [address] [place] [address] Mechanic Foreman Oncology 08/20/23 Anjelica Pereira, EFRAIN Specialty Vehicle Body Builder Hematology/Oncology 04/30/24 Hotel Dining Room Cashier Relationship Specialty Start Date End Date Martine Marrufo, [employer].SLOT MACHINE KEY PERSON [address] [place], [place] [id number] PCP - General Family Medicine 07/19/23 Sina Hackett MD [address] [place], [place] [id number] Family Medicine 07/19/23 Joleen Jiang MD [address] [place] [address] Hematology/Oncology 08/04/23 Marta Moore, EFRAIN Specialty Vehicle Body Builder Hematology/Oncology 08/06/23 Shanique Vasquez, TOUR CONSULTANT [address] [place] [address] Mechanic Foreman Oncology 08/20/23 Anjelica Pereira, RN Specialty Vehicle Body Builder Hematology/Oncology 04/30/24 Hotel Dining Room Cashier Relationship Specialty Start Date End Date Martine Marrufo, HOME [employer].SLOT MACHINE KEY PERSON [address] [place], [place] [id number] PCP - General Family Medicine 07/19/23 Sina Hackett MD [address] [place], [place] [phone] Family Medicine 07/19/23 Joleen Jiang MD [address] [place] [address] Hematology/Oncology 08/04/23 Marta Moore, EFRAIN Specialty Vehicle Body Builder Hematology/Oncology 08/06/23 Shanique Vasquez, RIO [address] [place] [address] Mechanic Foreman Oncology 08/20/23 Anjelica Pereira RN Specialty Vehicle Body Builder Hematology/Oncology 04/30/24 Source Comments (unrecognize d section and content) In the event this informatio n is protected by the Federal Confidentiality of Alcohol and Drug Abuse Patient Records regulations: The Federal rules restrict any use of the information to criminally investigate or prosecute any alcohol or drug abuse patient.[facility] the event this information is protected by the Federal Confidentiality of Alcohol and Drug Abuse Patient Records regulations: The Federal rules restrict any use of the information to criminally investigate or prosecute any alcohol or drug abuse patient.[facility] the event this information is protected by the Federal Confidentiality of Alcohol and Drug Abuse Patient Records regulations: The Federal rules restrict any use of the information to criminally investigate or prosecute any alcohol or drug abuse patient.[facility] the event this information is protected by the Federal Confidentiality of Alcohol and Drug Abuse Patient Records regulations: The Federal rules restrict any use of the information to criminally investigate or prosecute any alcohol or drug abuse patient.[facility] the event this information is protected by the Federal Confidentiality of Alcohol and Drug Abuse Patient Records regulations: The Federal rules restrict any use of the information to criminally investigate or prosecute any alcohol or drug abuse patient.[facility]In the event this information is protected by the Federal Confidentiality of Alcohol and Drug Abuse Patient Records regulations: The Federal rules restrict any use of the information to criminally investigate or prosecute any alcohol or drug abuse patient.[facility]In the event this information is protected by the Federal Confidentiality of Alcohol and Drug Abuse Patient Records regulations: The Federal rules restrict any use of the information to criminally investigate or prosecute any alcohol or drug abuse patient.[facility]In the event this information is protected by the Federal Confidentiality of Alcohol and Drug Abuse Patient Records regulations: The Federal rules restrict any use of the information to criminally investigate or prosecute any alcohol or drug abuse patient.[facility]In the event this information is protected by the Federal Confidentiality of Alcohol and Drug Abuse Patient Records regulations: The Federal rules restrict any use of the information to criminally investigate or prosecute any alcohol or drug abuse patient.[facility]In the event this information is protected by the Federal Confidentiality of Alcohol and Drug Abuse Patient Records regulations: The Federal rules restrict any use of the information to criminally investigate or prosecute any alcohol or drug abuse patient.[facility]In the event this information is protected by the Federal Confidentiality of Alcohol and Drug Abuse Patient Records regulations: The Federal rules restrict any use of the information to criminally investigate or prosecute any alcohol or drug abuse patient.[facility] the event this information is protected by the Federal Confidentiality of Alcohol and Drug Abuse Patient Records regulations: The Federal rules restrict any use of the information to criminally investigate or prosecute any alcohol or drug abuse patient.[facility]In the event this information is protected by the Federal Confidentiality of Alcohol and Drug Abuse Patient Records regulations: The Federal rules restrict any use of the information to criminally investigate or prosecute any alcohol or drug abuse patient.[facility]In the event this information is protected by the Federal Confidentiality of Alcohol and Drug Abuse Patient Records regulations: The Federal rules restrict any use of the information to criminally investigate or prosecute any alcohol or drug abuse patient.[facility]In the event this information is protected by the Federal Confidentiality of Alcohol and Drug Abuse Patient Records regulations: The Federal rules restrict any use of the information to criminally investigate or prosecute any alcohol or drug abuse patient.[facility]In the event this information is protected by the Federal Confidentiality of Alcohol and Drug Abuse Patient Records regulations: The Federal rules restrict any use of the information to criminally investigate or prosecute any alcohol or drug abuse patient.[facility]In the event this information is protected by the Federal Confidentiality of Alcohol and Drug Abuse Patient Records regulations: The Federal rules restrict any use of the information to criminally investigate or prosecute any alcohol or drug abuse patient.[facility]In the event this information is protected by the Federal Confidentiality of Alcohol and Drug Abuse Patient Records regulations: The Federal rules restrict any use of the information to criminally investigate or prosecute any alcohol or drug abuse patient.[facility]In the event this information is protected by the Federal Confidentiality of Alcohol and Drug Abuse Patient Records regulations: The Federal rules restrict any use of the information to criminally investigate or prosecute any alcohol or drug abuse patient.[facility]In the event this information is protected by the Federal Confidentiality of Alcohol and Drug Abuse Patient Records regulations: The Federal rules restrict any use of the information to criminally investigate or prosecute any alcohol or drug abuse patient.[facility]In the event this information is protected by the Federal Confidentiality of Alcohol and Drug Abuse Patient Records regulations: The Federal rules restrict any use of the information to criminally investigate or prosecute any alcohol or drug abuse patient.[facility]In the event this information is protected by the Federal Confidentiality of Alcohol and Drug Abuse Patient Records regulations: The Federal rules restrict any use of the information to criminally investigate or prosecute any alcohol or drug abuse patient.[facility]In the event this information is protected by the Federal Confidentiality of Alcohol and Drug Abuse Patient Records regulations: The Federal rules restrict any use of the information to criminally investigate or prosecute any alcohol or drug abuse patient.[facility]In the event this information is protected by the Federal Confidentiality of Alcohol and Drug Abuse Patient Records regulations: The Federal rules restrict any use of the information to criminally investigate or prosecute any alcohol or drug abuse patient.[facility]In the event this information is protected by the Federal Confidentiality of Alcohol and Drug Abuse Patient Records regulations: The Federal rules restrict any use of the information to criminally investigate or prosecute any alcohol or drug abuse patient.[facility]In the event this information is protected by the Federal Confidentiality of Alcohol and Drug Abuse Patient Records regulations: The Federal rules restrict any use of the information to criminally investigate or prosecute any alcohol or drug abuse patient.[facility]In the event this information is protected by the Federal Confidentiality of Alcohol and Drug Abuse Patient Records regulations: The Federal rules restrict any use of the information to criminally investigate or prosecute any alcohol or drug abuse patient.[facility]In the event this information is protected by the Federal Confidentiality of Alcohol and Drug Abuse Patient Records regulations: The Federal rules restrict any use of the information to criminally investigate or prosecute any alcohol or drug abuse patient.[facility]In the event this information is protected by the Federal Confidentiality of Alcohol and Drug Abuse Patient Records regulations: The Federal rules restrict any use of the information to criminally investigate or prosecute any alcohol or drug abuse patient.[facility]In the event this information is protected by the Federal Confidentiality of Alcohol and Drug Abuse Patient Records regulations: The Federal rules restrict any use of the information to criminally investigate or prosecute any alcohol or drug abuse patient.[facility]In the event this information is protected by the Federal Confidentiality of Alcohol and Drug Abuse Patient Records regulations: The Federal rules restrict any use of the information to criminally investigate or prosecute any alcohol or drug abuse patient.[facility]In the event this information is protected by the Federal Confidentiality of Alcohol and Drug Abuse Patient Records regulations: The Federal rules restrict any use of the information to criminally investigate or prosecute any alcohol or drug abuse patient.[facility]In the event this information is protected by the Federal Confidentiality of Alcohol and Drug Abuse Patient Records regulations: The Federal rules restrict any use of the information to criminally investigate or prosecute any alcohol or drug abuse patient.[facility]In the event this information is protected by the Federal Confidentiality of Alcohol and Drug Abuse Patient Records regulations: The Federal rules restrict any use of the information to criminally investigate or prosecute any alcohol or drug abuse patient.[facility]In the event this information is protected by the Federal Confidentiality of Alcohol and Drug Abuse Patient Records regulations: The Federal rules restrict any use of the information to criminally investigate or prosecute any alcohol or drug abuse patient.[facility]In the event this information is protected by the Federal Confidentiality of Alcohol and Drug Abuse Patient Records regulations: The Federal rules restrict any use of the information to criminally investigate or prosecute any alcohol or drug abuse patient.[facility]In the event this information is protected by the Federal Confidentiality of Alcohol and Drug Abuse Patient Records regulations: The Federal rules restrict any use of the information to criminally investigate or prosecute any alcohol or drug abuse patient.[facility]In the event this information is protected by the Federal Confidentiality of Alcohol and Drug Abuse Patient Records regulations: The Federal rules restrict any use of the information to criminally investigate or prosecute any alcohol or drug abuse patient.[facility]In the event this information is protected by the Federal Confidentiality of Alcohol and Drug Abuse Patient Records regulations: The Federal rules restrict any use of the information to criminally investigate or prosecute any alcohol or drug abuse patient.[facility]In the event this information is protected by the Federal Confidentiality of Alcohol and Drug Abuse Patient Records regulations: The Federal rules restrict any use of the information to criminally investigate or prosecute any alcohol or drug abuse patient.[facility]In the event this information is protected by the Federal Confidentiality of Alcohol and Drug Abuse Patient Records regulations: The Federal rules restrict any use of the information to criminally investigate or prosecute any alcohol or drug abuse patient.[facility]In the event this information is protected by the Federal Confidentiality of Alcohol and Drug Abuse Patient Records regulations: The Federal rules restrict any use of the information to criminally investigate or prosecute any alcohol or drug abuse patient.[facility]In the event this information is protected by the Federal Confidentiality of Alcohol and Drug Abuse Patient Records regulations: The Federal rules restrict any use of the information to criminally investigate or prosecute any alcohol or drug abuse patient.[facility]In the event this information is protected by the Federal Confidentiality of Alcohol and Drug Abuse Patient Records regulations: The Federal rules restrict any use of the information to criminally investigate or prosecute any alcohol or drug abuse patient.[facility]In the event this information is protected by the Federal Confidentiality of Alcohol and Drug Abuse Patient Records regulations: The Federal rules restrict any use of the information to criminally investigate or prosecute any alcohol or drug abuse patient.[facility]In the event this information is protected by the Federal Confidentiality of Alcohol and Drug Abuse Patient Records regulations: The Federal rules restrict any use of the information to criminally investigate or prosecute any alcohol or drug abuse patient.[facility]In the event this information is protected by the Federal Confidentiality of Alcohol and Drug Abuse Patient Records regulations: The Federal rules restrict any use of the information to criminally investigate or prosecute any alcohol or drug abuse patient.[facility]In the event this information is protected by the Federal Confidentiality of Alcohol and Drug Abuse Patient Records regulations: The Federal rules restrict any use of the information to criminally investigate or prosecute any alcohol or drug abuse patient.[facility]In the event this information is protected by the Federal Confidentiality of Alcohol and Drug Abuse Patient Records regulations: The Federal rules restrict any use of the information to criminally investigate or prosecute any alcohol or drug abuse patient.[facility]In the event this information is protected by the Federal Confidentiality of Alcohol and Drug Abuse Patient Records regulations: The Federal rules restrict any use of the information to criminally investigate or prosecute any alcohol or drug abuse patient.[facility]In the event this information is protected by the Federal Confidentiality of Alcohol and Drug Abuse Patient Records regulations: The Federal rules restrict any use of the information to criminally investigate or prosecute any alcohol or drug abuse patient.[facility]In the event this information is protected by the Federal Confidentiality of Alcohol and Drug Abuse Patient Records regulations: The Federal rules restrict any use of the information to criminally investigate or prosecute any alcohol or drug abuse patient.[facility]In the event this information is protected by the Federal Confidentiality of Alcohol and Drug Abuse Patient Records regulations: The Federal rules restrict any use of the information to criminally investigate or prosecute any alcohol or drug abuse patient.[facility]In the event this information is protected by the Federal Confidentiality of Alcohol and Drug Abuse Patient Records regulations: The Federal rules restrict any use of the information to criminally investigate or prosecute any alcohol or drug abuse patient.[facility]In the event this information is protected by the Federal Confidentiality of Alcohol and Drug Abuse Patient Records regulations: The Federal rules restrict any use of the information to criminally investigate or prosecute any alcohol or drug abuse patient.[facility]In the event this information is protected by the Federal Confidentiality of Alcohol and Drug Abuse Patient Records regulations: The Federal rules restrict any use of the information to criminally investigate or prosecute any alcohol or drug abuse patient.[facility]In the event this information is protected by the Federal Confidentiality of Alcohol and Drug Abuse Patient Records regulations: The Federal rules restrict any use of the information to criminally investigate or prosecute any alcohol or drug abuse patient.[facility]In the event this information is protected by the Federal Confidentiality of Alcohol and Drug Abuse Patient Records regulations: The Federal rules restrict any use of the information to criminally investigate or prosecute any alcohol or drug abuse patient.[facility]In the event this information is protected by the Federal Confidentiality of Alcohol and Drug Abuse Patient Records regulations: The Federal rules restrict any use of the information to criminally investigate or prosecute any alcohol or drug abuse patient.[facility]In the event this information is protected by the Federal Confidentiality of Alcohol and Drug Abuse Patient Records regulations: The Federal rules restrict any use of the information to criminally investigate or prosecute any alcohol or drug abuse patient.[facility]In the event this information is protected by the Federal Confidentiality of Alcohol and Drug Abuse Patient Records regulations: The Federal rules restrict any use of the information to criminally investigate or prosecute any alcohol or drug abuse patient.[facility]In the event this information is protected by the Federal Confidentiality of Alcohol and Drug Abuse Patient Records regulations: The Federal rules restrict any use of the information to criminally investigate or prosecute any alcohol or drug abuse patient.[facility]In the event this information is protected by the Federal Confidentiality of Alcohol and Drug Abuse Patient Records regulations: The Federal rules restrict any use of the information to criminally investigate or prosecute any alcohol or drug abuse patient.[facility]In the event this information is protected by the Federal Confidentiality of Alcohol and Drug Abuse Patient Records regulations: The Federal rules restrict any use of the information to criminally investigate or prosecute any alcohol or drug abuse patient.[facility]In the event this information is protected by the Federal Confidentiality of Alcohol and Drug Abuse Patient Records regulations: The Federal rules restrict any use of the information to criminally investigate or prosecute any alcohol or drug abuse patient.[facility]In the event this information is protected by the Federal Confidentiality of Alcohol and Drug Abuse Patient Records regulations: The Federal rules restrict any use of the information to criminally investigate or prosecute any alcohol or drug abuse patient.[facility]In the event this information is protected by the Federal Confidentiality of Alcohol and Drug Abuse Patient Records regulations: The Federal rules restrict any use of the information to criminally investigate or prosecute any alcohol or drug abuse patient.[facility]In the event this information is protected by the Federal Confidentiality of Alcohol and Drug Abuse Patient Records regulations: The Federal rules restrict any use of the information to criminally investigate or prosecute any alcohol or drug abuse patient.[facility]In the event this information is protected by the Federal Confidentiality of Alcohol and Drug Abuse Patient Records regulations: The Federal rules restrict any use of the information to criminally investigate or prosecute any alcohol or drug abuse patient.[facility]In the event this information is protected by the Federal Confidentiality of Alcohol and Drug Abuse Patient Records regulations: The Federal rules restrict any use of the information to criminally investigate or prosecute any alcohol or drug abuse patient.[facility]In the event this information is protected by the Federal Confidentiality of Alcohol and Drug Abuse Patient Records regulations: The Federal rules restrict any use of the information to criminally investigate or prosecute any alcohol or drug abuse patient.[facility]In the event this information is protected by the Federal Confidentiality of Alcohol and Drug Abuse Patient Records regulations: The Federal rules restrict any use of the information to criminally investigate or prosecute any alcohol or drug abuse patient.[facility]In the event this information is protected by the Federal Confidentiality of Alcohol and Drug Abuse Patient Records regulations: The Federal rules restrict any use of the information to criminally investigate or prosecute any alcohol or drug abuse patient.[facility]In the event this information is protected by the Federal Confidentiality of Alcohol and Drug Abuse Patient Records regulations: The Federal rules restrict any use of the information to criminally investigate or prosecute any alcohol or drug abuse patient.[facility]In the event this information is protected by the Federal Confidentiality of Alcohol and Drug Abuse Patient Records regulations: The Federal rules restrict any use of the information to criminally investigate or prosecute any alcohol or drug abuse patient.[facility]In the event this information is protected by the Federal Confidentiality of Alcohol and Drug Abuse Patient Records regulations: The Federal rules restrict any use of the information to criminally investigate or prosecute any alcohol or drug abuse patient.[facility]In the event this information is protected by the Federal Confidentiality of Alcohol and Drug Abuse Patient Records regulations: The Federal rules restrict any use of the information to criminally investigate or prosecute any alcohol or drug abuse patient.[facility] HospitalIn the event this information is protected by the Federal Confidentiality of Alcohol and Drug Abuse Patient Records regulations: The Federal rules restrict any use of the information to criminally investigate or prosecute any alcohol or drug abuse patient.[facility]In the event this information is protected by the Federal Confidentiality of Alcohol and Drug Abuse Patient Records regulations: The Federal rules restrict any use of the information to criminally investigate or prosecute any alcohol or drug abuse patient.[facility]In the event this information is protected by the Federal Confidentiality of Alcohol and Drug Abuse Patient Records regulations: The Federal rules restrict any use of the information to criminally investigate or prosecute any alcohol or drug abuse patient.[facility]In the event this information is protected by the Federal Confidentiality of Alcohol and Drug Abuse Patient Records regulations: The Federal rules restrict any use of the information to criminally investigate or prosecute any alcohol or drug abuse patient.[facility]In the event this information is protected by the Federal Confidentiality of Alcohol and Drug Abuse Patient Records regulations: The Federal rules restrict any use of the information to criminally investigate or prosecute any alcohol or drug abuse patient.[facility]In the event this information is protected by the Federal Confidentiality of Alcohol and Drug Abuse Patient Records regulations: The Federal rules restrict any use of the information to criminally investigate or prosecute any alcohol or drug abuse patient.[facility]In the event this information is protected by the Federal Confidentiality of Alcohol and Drug Abuse Patient Records regulations: The Federal rules restrict any use of the information to criminally investigate or prosecute any alcohol or drug abuse patient.[facility]In the event this information is protected by the Federal Confidentiality of Alcohol and Drug Abuse Patient Records regulations: The Federal rules restrict any use of the information to criminally investigate or prosecute any alcohol or drug abuse patient.[facility]In the event this information is protected by the Federal Confidentiality of Alcohol and Drug Abuse Patient Records regulations: The Federal rules restrict any use of the information to criminally investigate or prosecute any alcohol or drug abuse patient.[facility]In the event this information is protected by the Federal Confidentiality of Alcohol and Drug Abuse Patient Records regulations: The Federal rules restrict any use of the information to criminally investigate or prosecute any alcohol or drug abuse patient.[facility]In the event this information is protected by the Federal Confidentiality of Alcohol and Drug Abuse Patient Records regulations: The Federal rules restrict any use of the information to criminally investigate or prosecute any alcohol or drug abuse patient.[facility]In the event this information is protected by the Federal Confidentiality of Alcohol and Drug Abuse Patient Records regulations: The Federal rules restrict any use of the information to criminally investigate or prosecute any alcohol or drug abuse patient.[facility]In the event this information is protected by the Federal Confidentiality of Alcohol and Drug Abuse Patient Records regulations: The Federal rules restrict any use of the information to criminally investigate or prosecute any alcohol or drug abuse patient.[facility]In the event this information is protected by the Federal Confidentiality of Alcohol and Drug Abuse Patient Records regulations: The Federal rules restrict any use of the information to criminally investigate or prosecute any alcohol or drug abuse patient.[facility]In the event this information is protected by the Federal Confidentiality of Alcohol and Drug Abuse Patient Records regulations: The Federal rules restrict any use of the information to criminally investigate or prosecute any alcohol or drug abuse patient.[facility]In the event this information is protected by the Federal Confidentiality of Alcohol and Drug Abuse Patient Records regulations: The Federal rules restrict any use of the information to criminally investigate or prosecute any alcohol or drug abuse patient.[facility]In the event this information is protected by the Federal Confidentiality of Alcohol and Drug Abuse Patient Records regulations: The Federal rules restrict any use of the information to criminally investigate or prosecute any alcohol or drug abuse patient.[facility]In the event this information is protected by the Federal Confidentiality of Alcohol and Drug Abuse Patient Records regulations: The Federal rules restrict any use of the information to criminally investigate or prosecute any alcohol or drug abuse patient.[facility]In the event this information is protected by the Federal Confidentiality of Alcohol and Drug Abuse Patient Records regulations: The Federal rules restrict any use of the information to criminally investigate or prosecute any alcohol or drug abuse patient.[facility]In the event this information is protected by the Federal Confidentiality of Alcohol and Drug Abuse Patient Records regulations: The Federal rules restrict any use of the information to criminally investigate or prosecute any alcohol or drug abuse patient.[facility]In the event this information is protected by the Federal Confidentiality of Alcohol and Drug Abuse Patient Records regulations: The Federal rules restrict any use of the information to criminally investigate or prosecute any alcohol or drug abuse patient.[facility] HospitalIn the event this information is protected by the Federal Confidentiality of Alcohol and Drug Abuse Patient Records regulations: The Federal rules restrict any use of the information to criminally investigate or prosecute any alcohol or drug abuse patient.[facility]In the event this information is protected by the Federal Confidentiality of Alcohol and Drug Abuse Patient Records regulations: The Federal rules restrict any use of the information to criminally investigate or prosecute any alcohol or drug abuse patient.[facility]In the event this information is protected by the Federal Confidentiality of Alcohol and Drug Abuse Patient Records regulations: The Federal rules restrict any use of the information to criminally investigate or prosecute any alcohol or drug abuse patient.[facility] HospitalIn the event this information is protected by the Federal Confidentiality of Alcohol and Drug Abuse Patient Records regulations: The Federal rules restrict any use of the information to criminally investigate or prosecute any alcohol or drug abuse patient.[facility]In the event this information is protected by the Federal Confidentiality of Alcohol and Drug Abuse Patient Records regulations: The Federal rules restrict any use of the information to criminally investigate or prosecute any alcohol or drug abuse patient.[facility]In the event this information is protected by the Federal Confidentiality of Alcohol and Drug Abuse Patient Records regulations: The Federal rules restrict any use of the information to criminally investigate or prosecute any alcohol or drug abuse patient.[facility] HospitalIn the event this information is protected by the Federal Confidentiality of Alcohol and Drug Abuse Patient Records regulations: The Federal rules restrict any use of the information to criminally investigate or prosecute any alcohol or drug abuse patient.[facility] HospitalIn the event this information is protected by the Federal Confidentiality of Alcohol and Drug Abuse Patient Records regulations: The Federal rules restrict any use of the information to criminally investigate or prosecute any alcohol or drug abuse patient.[facility]In the event this information is protected by the Federal Confidentiality of Alcohol and Drug Abuse Patient Records regulations: The Federal rules restrict any use of the information to criminally investigate or prosecute any alcohol or drug abuse patient.[facility]In the event this information is protected by the Federal Confidentiality of Alcohol and Drug Abuse Patient Records regulations: The Federal rules restrict any use of the information to criminally investigate or prosecute any alcohol or drug abuse patient.[facility]In the event this information is protected by the Federal Confidentiality of Alcohol and Drug Abuse Patient Records regulations: The Federal rules restrict any use of the information to criminally investigate or prosecute any alcohol or drug abuse patient.[facility]In the event this information is protected by the Federal Confidentiality of Alcohol and Drug Abuse Patient Records regulations: The Federal rules restrict any use of the information to criminally investigate or prosecute any alcohol or drug abuse patient.[facility]In the event this information is protected by the Federal Confidentiality of Alcohol and Drug Abuse Patient Records regulations: The Federal rules restrict any use of the information to criminally investigate or prosecute any alcohol or drug abuse patient.[facility] HospitalIn the event this information is protected by the Federal Confidentiality of Alcohol and Drug Abuse Patient Records regulations: The Federal rules restrict any use of the information to criminally investigate or prosecute any alcohol or drug abuse patient.[facility]In the event this information is protected by the Federal Confidentiality of Alcohol and Drug Abuse Patient Records regulations: The Federal rules restrict any use of the information to criminally investigate or prosecute any alcohol or drug abuse patient.[facility]In the event this information is protected by the Federal Confidentiality of Alcohol and Drug Abuse Patient Records regulations: The Federal rules restrict any use of the information to criminally investigate or prosecute any alcohol or drug abuse patient.[facility]In the event this information is protected by the Federal Confidentiality of Alcohol and Drug Abuse Patient Records regulations: The Federal rules restrict any use of the information to criminally investigate or prosecute any alcohol or drug abuse patient.[facility]In the event this information is protected by the Federal Confidentiality of Alcohol and Drug Abuse Patient Records regulations: The Federal rules restrict any use of the information to criminally investigate or prosecute any alcohol or drug abuse patient.[facility]In the event this information is protected by the Federal Confidentiality of Alcohol and Drug Abuse Patient Records regulations: The Federal rules restrict any use of the information to criminally investigate or prosecute any alcohol or drug abuse patient.[facility] HospitalIn the event this information is protected by the Federal Confidentiality of Alcohol and Drug Abuse Patient Records regulations: The Federal rules restrict any use of the information to criminally investigate or prosecute any alcohol or drug abuse patient.[facility]In the event this information is protected by the Federal Confidentiality of Alcohol and Drug Abuse Patient Records regulations: The Federal rules restrict any use of the information to criminally investigate or prosecute any alcohol or drug abuse patient.[facility]In the event this information is protected by the Federal Confidentiality of Alcohol and Drug Abuse Patient Records regulations: The Federal rules restrict any use of the information to criminally investigate or prosecute any alcohol or drug abuse patient.[facility]In the event this information is protected by the Federal Confidentiality of Alcohol and Drug Abuse Patient Records regulations: The Federal rules restrict any use of the information to criminally investigate or prosecute any alcohol or drug abuse patient.[facility]In the event this information is protected by the Federal Confidentiality of Alcohol and Drug Abuse Patient Records regulations: The Federal rules restrict any use of the information to criminally investigate or prosecute any alcohol or drug abuse patient.[facility]In the event this information is protected by the Federal Confidentiality of Alcohol and Drug Abuse Patient Records regulations: The Federal rules restrict any use of the information to criminally investigate or prosecute any alcohol or drug abuse patient.[facility]In the event this information is protected by the Federal Confidentiality of Alcohol and Drug Abuse Patient Records regulations: The Federal rules restrict any use of the information to criminally investigate or prosecute any alcohol or drug abuse patient.[facility]In the event this information is protected by the Federal Confidentiality of Alcohol and Drug Abuse Patient Records regulations: The Federal rules restrict any use of the information to criminally investigate or prosecute any alcohol or drug abuse patient.[facility]In the event this information is protected by the Federal Confidentiality of Alcohol and Drug Abuse Patient Records regulations: The Federal rules restrict any use of the information to criminally investigate or prosecute any alcohol or drug abuse patient.[facility]In the event this information is protected by the Federal Confidentiality of Alcohol and Drug Abuse Patient Records regulations: The Federal rules restrict any use of the information to criminally investigate or prosecute any alcohol or drug abuse patient.[facility]In the event this information is protected by the Federal Confidentiality of Alcohol and Drug Abuse Patient Records regulations: The Federal rules restrict any use of the information to criminally investigate or prosecute any alcohol or drug abuse patient.[facility]In the event this information is protected by the Federal Confidentiality of Alcohol and Drug Abuse Patient Records regulations: The Federal rules restrict any use of the information to criminally investigate or prosecute any alcohol or drug abuse patient.[facility]In the event this information is protected by the Federal Confidentiality of Alcohol and Drug Abuse Patient Records regulations: The Federal rules restrict any use of the information to criminally investigate or prosecute any alcohol or drug abuse patient.[facility]In the event this information is protected by the Federal Confidentiality of Alcohol and Drug Abuse Patient Records regulations: The Federal rules restrict any use of the information to criminally investigate or prosecute any alcohol or drug abuse patient.[facility]In the event this information is protected by the Federal Confidentiality of Alcohol and Drug Abuse Patient Records regulations: The Federal rules restrict any use of the information to criminally investigate or prosecute any alcohol or drug abuse patient.[facility]In the event this information is protected by the Federal Confidentiality of Alcohol and Drug Abuse Patient Records regulations: The Federal rules restrict any use of the information to criminally investigate or prosecute any alcohol or drug abuse patient.[facility]In the event this information is protected by the Federal Confidentiality of Alcohol and Drug Abuse Patient Records regulations: The Federal rules restrict any use of the information to criminally investigate or prosecute any alcohol or drug abuse patient.[facility]In the event this information is protected by the Federal Confidentiality of Alcohol and Drug Abuse Patient Records regulations: The Federal rules restrict any use of the information to criminally investigate or prosecute any alcohol or drug abuse patient.[facility]In the event this information is protected by the Federal Confidentiality of Alcohol and Drug Abuse Patient Records regulations: The Federal rules restrict any use of the information to criminally investigate or prosecute any alcohol or drug abuse patient.[facility]In the event this information is protected by the Federal Confidentiality of Alcohol and Drug Abuse Patient Records regulations: The Federal rules restrict any use of the information to criminally investigate or prosecute any alcohol or drug abuse patient.[facility]In the event this information is protected by the Federal Confidentiality of Alcohol and Drug Abuse Patient Records regulations: The Federal rules restrict any use of the information to criminally investigate or prosecute any alcohol or drug abuse patient.[facility]In the event this information is protected by the Federal Confidentiality of Alcohol and Drug Abuse Patient Records regulations: The Federal rules restrict any use of the information to criminally investigate or prosecute any alcohol or drug abuse patient.[facility]In the event this information is protected by the Federal Confidentiality of Alcohol and Drug Abuse Patient Records regulations: The Federal rules restrict any use of the information to criminally investigate or prosecute any alcohol or drug abuse patient.[facility]In the event this information is protected by the Federal Confidentiality of Alcohol and Drug Abuse Patient Records regulations: The Federal rules restrict any use of the information to criminally investigate or prosecute any alcohol or drug abuse patient.[facility]In the event this information is protected by the Federal Confidentiality of Alcohol and Drug Abuse Patient Records regulations: The Federal rules restrict any use of the information to criminally investigate or prosecute any alcohol or drug abuse patient.[facility]In the event this information is protected by the Federal Confidentiality of Alcohol and Drug Abuse Patient Records regulations: The Federal rules restrict any use of the information to criminally investigate or prosecute any alcohol or drug abuse patient.[facility]In the event this information is protected by the Federal Confidentiality of Alcohol and Drug Abuse Patient Records regulations: The Federal rules restrict any use of the information to criminally investigate or prosecute any alcohol or drug abuse patient.[facility]In the event this information is protected by the Federal Confidentiality of Alcohol and Drug Abuse Patient Records regulations: The Federal rules restrict any use of the information to criminally investigate or prosecute any alcohol or drug abuse patient.[facility]In the event this information is protected by the Federal Confidentiality of Alcohol and Drug Abuse Patient Records regulations: The Federal rules restrict any use of the information to criminally investigate or prosecute any alcohol or drug abuse patient.[facility]In the event this information is protected by the Federal Confidentiality of Alcohol and Drug Abuse Patient Records regulations: The Federal rules restrict any use of the information to criminally investigate or prosecute any alcohol or drug abuse patient.[facility]In the event this information is protected by the Federal Confidentiality of Alcohol and Drug Abuse Patient Records regulations: The Federal rules restrict any use of the information to criminally investigate or prosecute any alcohol or drug abuse patient.[facility]In the event this information is protected by the Federal Confidentiality of Alcohol and Drug Abuse Patient Records regulations: The Federal rules restrict any use of the information to criminally investigate or prosecute any alcohol or drug abuse patient.[facility]In the event this information is protected by the Federal Confidentiality of Alcohol and Drug Abuse Patient Records regulations: The Federal rules restrict any use of the information to criminally investigate or prosecute any alcohol or drug abuse patient.[facility]In the event this information is protected by the Federal Confidentiality of Alcohol and Drug Abuse Patient Records regulations: The Federal rules restrict any use of the information to criminally investigate or prosecute any alcohol or drug abuse patient.[facility]In the event this information is protected by the Federal Confidentiality of Alcohol and Drug Abuse Patient Records regulations: The Federal rules restrict any use of the information to criminally investigate or prosecute any alcohol or drug abuse patient.[facility]In the event this information is protected by the Federal Confidentiality of Alcohol and Drug Abuse Patient Records regulations: The Federal rules restrict any use of the information to criminally investigate or prosecute any alcohol or drug abuse patient.[facility]In the event this information is protected by the Federal Confidentiality of Alcohol and Drug Abuse Patient Records regulations: The Federal rules restrict any use of the information to criminally investigate or prosecute any alcohol or drug abuse patient.[facility]In the event this information is protected by the Federal Confidentiality of Alcohol and Drug Abuse Patient Records regulations: The Federal rules restrict any use of the information to criminally investigate or prosecute any alcohol or drug abuse patient.[facility]In the event this information is protected by the Federal Confidentiality of Alcohol and Drug Abuse Patient Records regulations: The Federal rules restrict any use of the information to criminally investigate or prosecute any alcohol or drug abuse patient.[facility] Reason for Visit (unrecogniz ed section and content) Reason Comments Radio Gen RMP Reason Comments Procedure Gamma Knife SRS Reason Comments Radiology MRI Specialty Diagnoses / Procedures Referred By Contac t Referred To Contact MR IMAGING Diagnoses Secondary malignant neoplasm of brain (HCC) Procedures MRI BRAIN LOCALIZATION W IVCON UNLISTED MAGNETIC RESONANCE PROCED Connor Servin MD [address] [place] [address] Mr Imaging [place] [id number] Referral ID Status Reason Start Date Expiration Date V isits Requested Visits Authorized [id number] Closed Auto-Generate d Referral 07/23/2023 09/06/2023 [address] Specialty Diagnoses / Procedures Referred By Contac t Referred To Contact CT IMAGING Diagnoses Secondary malignant neoplasm of brain (HCC) Procedures CT BRAIN STEREOLOCAL WO IVCON CT GUIDANCE STEREOTACTIC LOCALIZATION Connor Servin MD [address] [place] [address] Ct [facility] [place] [id number] Referral ID Status Reason Start Date Expiration Date V isits Requested Visits Authorized [id number] Closed Auto-Generate d Referral 07/22/2023 08/24/2023 1 1 Reason Comments Appointment Patient Question Reason Comments Nm Pet Request Reason Comments Consult Reason Onset Date Comments Refill Request 08/10/2023 Reason Comments New Patient Specialty Diagnoses / Procedures Referred By [place] t Referred To Contact MR IMAGING Diagnoses Secondary malignant neoplasm of brain (HCC) Procedures MRI BRAIN WO/W IVCON MRI BRAIN BRAIN STEM W/O W/CONTRAST MATERIAL Connor Servin MD [address] [place] [address] Mr [facility] [place] [id number] Referral ID Status Reason Start Date Expiration Date V isits Requested Visits Authorized [id number] Closed Auto-Generate d Referral 07/22/2023 08/20/2024 1 1 Specialty Diagnoses / Procedures Referred By Contac t Referred To Contact Diagnoses 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 Procedures CARBOPLATIN INJECTION PALONOSETRON HCL FOSAPREPITANT INJECTION INJECTION, PEMETREXED, NOT OTHERWISE SPECIFIED, 10 MG [place] [address] [place] [address] [place] [address] [address] [place] [id number] Referral ID Status Reason Start Date Expiration Date V isits Requested Visits Authorized [id number] Authorized 08/20/2023 02/15/2024 9 9 Specialty Diagnoses / Procedures Referred By Leisaac t Referred To Contact CT IMAGING Diagnoses Malignant neoplasm of unspecified part of unspecified bronchus or lung (HCC) Procedures CT CHEST W IVCON DIAGNOSTIC COMPUTED TOMOGRAPHY THORAX W/[place] [address] [place] [address] Ct Imaging [facility]95 Referral ID Status Reason Start Date Expiration Date V isits Requested Visits Authorized [id number] Closed Auto-Generate d Referral 09/17/2023 10/16/2024 1 1 Reason Comments Care Coordination Forms Reason Onset Date Comments Refill Request 10/13/2023 Reason Comments Establish Care Reason Comments Established Patient Reason Comments Results Appointment Reason Comments Radiology CT Referral ID Status Reason Start Date Expiration Date V isits Requested Visits Authorized [id number] Closed Auto-Generate d Referral 11/26/2023 11/13/2024 1 1 Reason Comments 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 Follow Up Epilepsy Reason Onset Date Comments Refill Request 12/05/2023 Reason Comments Appointment Reason Comments Radiology Invasive Breast Procedure Reason Comments Anesthesia Consult Reason Comments Preparations For Procedures Reason Comments Pre-op Education Reason Comments Follow Up Specialty Diagnoses / Procedures Referred By [place] t Referred To Contact Neurology / BRAIN TUMOR Diagnoses [facility] TREATMENT 07/28/23 - L temporal 3 month follow up Procedures EST NI PATIENT Mariela Rivera, [employer].SLOT MACHINE KEY PERSON [address] [place] [address] Mariela Rivera, HOME CARE [employer] MACHINE KEY PERSON [address] [place] [address] Referral ID Status Reason Start Date Expiration Date V isits Requested Visits Authorized [id number] Pending Review 01/08/2024 04/07/2024 1 1 Specialty Diagnoses / Procedures Referred By [place] t Referred To Contact MR IMAGING Diagnoses Secondary malignant neoplasm of brain (HCC) Procedures MRI BRAIN WO/W IVCON MRI BRAIN BRAIN STEM W/O W/CONTRAST MATERIAL [place] [address] [address] [place] [id number] [place] [address] Referral ID Status Reason Start Date Expiration Date V isits Requested Visits Authorized [id number] Closed Auto-Generate d Referral 09/26/2023 10/25/2024 1 1 Reason Comments Post Op Reason Comments Care Coordination Critical Lab Value Reason Comments Care Coordination ED Discharge Reason Comments Care Coordination Appointments. Specialty Diagnoses / Procedures Referred By Contac t Referred To Contact Radiation Oncology Diagnoses Malignant neoplasm of upper-outer quadrant of right breast in female, estrogen receptor positive (HCC) Procedures RAD/ONC CONSULT OFFICE/OUTPATIENT NEW HIGH MDM 60 MINUTES Grace Pastor PA-C [address] [place] [address] Referral ID Status Reason Start Date Expiration Date V isits Requested Visits Authorized [id number] Closed PCP Requested Referral 01/16/2024 01/15/2025 1 1 Reason Comments Occupational therapy referral Reason Comments PT Eval Specialty Diagnoses / Procedures Referred By Contac t Referred To Contact [facility] Diagnoses S/P lumpectomy of breast At risk for lymphedema Procedures CONSULT TO BREAST REHAB PROGRAM THERAPEUTIC EXERCISES RE, EA 15 MIN. THERAPEUT ACTVITY DIRECT PT CONTACT EACH [address] [place] [address] [place] [address] [facility] [place] [address] [place] [address] Referral ID Status Reason Start Date Expiration Date V isits Requested Visits Authorized [id number] Closed PCP Requested Referral Auto-Generated Referral 02/02/2024 02/01/2025 1 1 Specialty Diagnoses / Procedures Referred By Contac t Referred To Contact CT IMAGING Diagnoses Malignant neoplasm of unspecified part of unspecified bronchus or lung (HCC) Procedures CT CHEST WO IVCON DIAGNOSTIC COMPUTED TOMOGRAPHY THORAX W/[place] [address] [place] [address] [place] [address] Referral ID Status Reason Start Date Expiration Date V isits Requested Visits Authorized [id number] Closed Auto-Generate d Referral 02/02/2024 03/03/2025 1 1 Referral ID Status Reason Start Date Expiration Date V isits Requested Visits Authorized [id number] Authorized 08/20/2023 08/24/2024 99 99 Reason Comments Established Patient Reason Onset Date Comments Refill Request 03/09/2024 Reason Comments Care Coordination TRACC Appt. Reason Comments Refill Request Specialty Diagnoses / Procedures Referred By Contac t Referred To Contact CT IMAGING Diagnoses Adenocarcinoma of lung, stage 4, unspecified laterality (HCC) Procedures CT CHEST WO IVCON DIAGNOSTIC COMPUTED TOMOGRAPHY THORAX W/[place] [address] [place] [phone] Imaging [place] [address] Referral ID Status Reason Start Date Expiration Date V isits Requested Visits Authorized [id number] Closed Auto-Generate d Referral 02/20/2024 03/21/2025 1 1 Specialty Diagnoses / Procedures Referred By Contac t Referred To Contact MR IMAGING Diagnoses Metastasis to brain (HCC) Procedures MRI BRAIN WO/W IVCON MRI BRAIN BRAIN STEM W/O W/CONTRAST MATERIAL Mariela Rivera, HOME CARE [employer].SLOT MACHINE KEY PERSON [address] [place] [address] Mr Imaging [place] [address] Referral ID Status Reason Start Date Expiration Date V isits Requested Visits Authorized [id number] Closed Auto-Generate d Referral 01/08/2024 02/06/2025 1 1 Reason Onset Date Comments Refill Request 05/03/2024 Reason Comments Radiology [place] Specialty Diagnoses / Procedures Referred By Contac t Referred To Contact [facility] Diagnoses Malignant neoplasm of upper-outer quadrant of right breast in female, estrogen receptor positive (HCC) Procedures MASTECTOMY, PARTIAL EXC BREAST LES PREOP PLMT RAD MARKER OPEN 1 LES BX/EXC LYMPH NODE OPEN DEEP AXILLARY NODE INTRAOP SENTINEL LYMPH NODE ID W/DYE INJECTION MASTECTOMY PARTIAL EXCISION BREAST LESION IDENTIFIED BY PREOPERATIVE PLACEMENT RADIOLOGICAL MARKER, OPEN, SINGLE LESION BIOPSY NODE AXILLARY INTRAOPERATIVE ID OF SENTINEL LYMPH NODE(S) INCL'D INJECTION OF NON-RAD DYE WHEN PERFORMED [facility] [place] [address] [place] [address] Referral ID Status Reason Start Date Expiration Date Visits Re quested Visits Authorized [id number] 1 1 Referral ID Status Reason Start Date Expiration Date V isits Requested Visits Authorized [id number] Closed Auto-Generate d Referral 04/23/2024 05/23/2025 1 1 Referral ID Status Reason Start Date Expiration Date V isits Requested Visits Authorized [id number] New Request 08/20/2023 08/24/2024 99 99 Reason Onset Date Comments Refill Request 07/11/2024 Reason Comments Care Coordination Reason Comments Follow Up mri Specialty Diagnoses / Procedures Referred By Contac t Referred To Contact Neurology / BRAIN TUMOR Diagnoses 3 month follow up (MRI prior) Procedures EST NI PATIENT Mariela Rivera APRN.SLOT MACHINE KEY PERSON [address] [place] [address] Mariela Rivera APRN.SLOT MACHINE KEY PERSON [address] [place] [address] Referral ID Status Reason Start Date Expiration Date V isits Requested Visits Authorized [id number] New Request 07/29/2024 10/27/2024 1 1 Referral ID Status Reason Start Date Expiration Date V isits Requested Visits Authorized [id number] Closed Auto-Generate d Referral 04/22/2024 05/22/2025 1 1 Reason Onset Date Comments Refill Request 11/27/2023 Referral ID Status Reason Start Date Expiration Date V isits Requested Visits Authorized [id number] Closed Auto-Generate d Referral 06/07/2024 07/07/2025 1 1 Referral ID Status Reason Start Date Expiration Date V isits Requested Visits Authorized [id number] Authorized 08/20/2023 08/24/2025 99 99 Reason Onset Date Comments Refill Request 09/15/2024 Reason Onset Date Comments Refill Request 10/02/2024 Reason Comments Follow Up 3 month follow up Reason Onset Date Comments Refill Request 11/01/2024 Reason Onset Date Comments Refill Request 12/04/2024 Specialty Diagnoses / Procedures Referred By Contac t Referred To Contact Neurology / BRAIN TUMOR Diagnoses 3 month follow up (MRI prior) Procedures EST NI PATIENT Mariela Rivear APRN.SLOT MACHINE KEY PERSON [address] [place] [address] Phone: tel: fax: Mariela Rivera APRN.SLOT MACHINE KEY PERSON [address] [place] [address] Phone: tel: fax: Referral ID Status Reason Start Date Expiration Date V isits Requested Visits Authorized [id number] New Request 02/03/2025 05/04/2025 1 1 INFORMATION SOURCE (unrecogn ized section and content) DATE CREATED AUTHOR 07/20/2023 [facility] DATE CREATED AUTHOR AUTHOR'S ORGANIZ ATION 07/24/2023 [facility] DATE CREATED AUTHOR AUTHOR'S ORGANIZ ATION 12/18/2023 [facility] DATE CREATED AUTHOR AUTHOR'S ORGANIZ ATION 05/04/2024 [facility] DATE CREATED AUTHOR AUTHOR'S ORGANIZ ATION 11/27/2024 [facility] DATE CREATED AUTHOR AUTHOR'S ORGANIZ ATION 02/08/2025 [facility] DATE CREATED AUTHOR AUTHOR'S ORGANIZ ATION 03/20/2025 [facility] Inactive Administered Medications - up to 3 most recent administrations Administered Medications (un recognized section and content) Medication Order MAR Action Action Date Dose Rate Site CARBOplatin 492.8 mg in NaCl 0.9% 324.28 mL (PARAPLATIN) 492.8 mg (Target AUC = 4), INTRAVENOUS, Administer over 30 Minutes, ONCE, 1 dose, On Fri10/08/23 at 1500, EXP: Hazardous Chemotherapy Drug: Use appropriate PPE. Antineoplastic Irritant. New Bag/Syringe/Bottle 10/08/2023 5:35 PM EST 492.8 mg dexAMETHasone 10 mg in NaCl 0.9% 50 mL (DECADRON) 10 mg, INTRAVENOUS, ONCE, 1 dose, On Fri10/08/23 at 1500, Refrigerate. New Bag/Syringe/Bottle 10/08/2023 4:06 PM EST 10 mg fosaprepitant 150 mg in NaCl 0.9% 250 mL (EMEND) 150 mg, INTRAVENOUS, Administer over 30 Minutes, ONCE, 1 dose, On Fri10/08/23 at 1500, Approximate Total Volume = 280 mL Mix in non-DEHP bag - Refrigerate New Bag/Syringe/Bottle 10/08/2023 3:26 PM EST 150 mg palonosetron 0.25 mg injection (ALOXI) 0.25 mg, INTRAVENOUS, ONCE, 1 dose, On Fri10/08/23 at 1500, Flush IV line with NS prior to and following administration. Given 10/08/2023 4:04 PM EST 0.25 mg pembrolizumab 200 mg in NaCl 0.9% 66 mL (KEYTRUDA) 200 mg, INTRAVENOUS, Administer over 30 Minutes, ONCE, 1 dose, On Fri10/08/23 at 1500, EXP: Administer with 0.2 micron filter. New Bag/Syringe/Bottle 10/08/2023 4:32 PM EST 200 mg PEMEtrexed disodium 752 mg in NaCl 0.9% 140.08 mL (ALIMTA) 752 mg (400 mg/m2 1.88 m2 Treatment Plan BSA from Recorded weight), INTRAVENOUS, Administer over 10 Minutes, ONCE, 1 dose, On Fri10/08/23 at 1500, EXP: Hazardous Chemotherapy Drug: Use appropriate PPE. New Bag/Syringe/Bottle 10/08/2023 5:20 PM EST 752 mg Inactive Administered Medications - up to 3 most recent administrations Medication Order MAR Action Action Date Dose Rate Site CARBOplatin 492.8 mg in NaCl 0.9% 324.28 mL (PARAPLATIN) 492.8 mg (Target AUC = 4), INTRAVENOUS, Administer over 30 Minutes, ONCE, 1 dose, On Fri10/29/23 at 1400, EXP: Hazardous Chemotherapy Drug: Use appropriate PPE. Antineoplastic Irritant. New Bag/Syringe/Bottl e 10/29/2023 4:40 PM EST 492.8 mg cyanocobalamin 1,000 mcg injection 1,000 mcg, INTRAMUSCULAR, ONCE, 1 dose, On Fri10/29/23 at 1400 Given 10/29/2023 4:08 PM EST 1,000 mcg Arm, Left dexAMETHasone 10 mg in NaCl 0.9% 50 mL (DECADRON) 10 mg, INTRAVENOUS, ONCE, 1 dose, On Fri10/29/23 at 1400, Refrigerate. New Bag/Syringe/Bottl e 10/29/2023 2:31 PM EST 10 mg fosaprepitant 150 mg in NaCl 0.9% 250 mL (EMEND) 150 mg, INTRAVENOUS, Administer over 30 Minutes, ONCE, 1 dose, On Fri10/29/23 at 1400, Approximate Total Volume = 280 mL Mix in non-DEHP bag - Refrigerate New Bag/Syringe/Bottl e 10/29/2023 2:57 PM EST 150 mg palonosetron 0.25 mg injection (ALOXI) 0.25 mg, INTRAVENOUS, ONCE, 1 dose, On Fri10/29/23 at 1400, Flush IV line with NS prior to and following administration. Given 10/29/2023 2:24 PM EST 0.25 mg pembrolizumab 200 mg in NaCl 0.9% 66 mL (KEYTRUDA) 200 mg, INTRAVENOUS, Administer over 30 Minutes, ONCE, 1 dose, On Fri10/29/23 at 1400, Approx Total Volume: 66 mL Administer with 0.2 micron filter. New Bag/Syringe/Bottl e 10/29/2023 3:36 PM EST 200 mg PEMEtrexed disodium 752 mg in NaCl 0.9% 140.08 mL (ALIMTA) 752 mg (400 mg/m2 1.88 m2 Treatment Plan BSA from Recorded weight), INTRAVENOUS, Administer over 10 Minutes, ONCE, 1 dose, On Fri10/29/23 at 1400, EXP: Hazardous Chemotherapy Drug: Use appropriate PPE. New Bag/Syringe/Bottl e 10/29/2023 4:25 PM EST 752 mg Inactive Administered Medications - up to 3 most recent administrations Medication Order MAR Action Action Date Dose Rate Site lidocaine (PF) 10 mg/mL (1 %) injection (XYLOCAINE) SUBCUTANEOUS, X (OR/PROCEDURE) PRN, Starting on Fri11/12/23 at 0840, Until Fri11/12/23 at 0840, Intraprocedure Given 11/12/2023 8:40 AM EDT 5 mL Breast, Right lidocaine (PF) 10 mg/mL (1 %) injection (XYLOCAINE) SUBCUTANEOUS, X (OR/PROCEDURE) PRN, Starting on Fri11/12/23 at 0840, Until Fri11/12/23 at 0840, Intraprocedure Given 11/12/2023 8:40 AM EDT 5 mL Axilla, Right Inactive Administered Medications - up to 3 most recent administrations Medication Order MAR Action Action Date Dose Rate Site ondansetron (PF) 8 mg injection (ZOFRAN) 8 mg, INTRAVENOUS, ONCE, 1 dose, On Fri11/26/23 at 1230 Given 11/26/2023 12:26 PM EDT 8 mg pembrolizumab 200 mg in NaCl 0.9% 66 mL (KEYTRUDA) 200 mg, INTRAVENOUS, Administer over 30 Minutes, ONCE, 1 dose, On Fri11/26/23 at 1230, Approx Total Volume: 66 mL Administer with 0.2 micron filter. New Bag/Syringe/Bottle 11/26/2023 1:23 PM EDT 200 mg PEMEtrexed disodium 900 mg in NaCl 0.9% 146 mL (ALIMTA) 900 mg (rounded from 940 mg = 500 mg/m2 1.88 m2 Treatment Plan BSA from Recorded weight), INTRAVENOUS, Administer over 10 Minutes, ONCE, 1 dose, On Fri11/26/23 at 1230, EXP: Hazardous Chemotherapy Drug: Use appropriate PPE. New Bag/Syringe/Bottle 11/26/2023 2:32 PM EDT 900 mg FOR RECORDS PERTAINING TO PATIENTS WHO ARE OR HAVE BEEN ENROLLED IN A CHEMICAL DEPENDENCY/SUBSTANCEABUSE PROGRAM, SOME INFORMATION MAY BE OMITTED. This clinical summary was aggregated from multiple sources. Caution should be exercised in using it in the provision of clinical care. This summary normalizes information from multiple sources, and as a consequence, information in this document may materially change the coding, format and clinical context of patient data. In addition, data may be omitted in some cases. CLINICAL DECISIONS SHOULD BE BASED ON THE PRIMARY CLINICAL RECORDS. [facility]. provides no warranty or guarantee of the accuracy or completeness of information in this document.
== END | disposition home or self-care (01) ==
PROVIDERS: Visit Provider Nurse Practitioner
DX: Z00.00 Encounter for general adult medical examination without abnormal findings (principal)
CPT/HCPCS: 80053; 80061; 85025